=== PATIENT | male | born 1960 | race Caucasian/White ===

== ENCOUNTER → 2020-02-26 09:44 | Outpatient (BNVA) | payer OTHER, SELFPAY | PROVIDERS: PCP Family Medicine; Referring Provider Family Medicine; Visit Provider Orthopaedic Surgery | DX: M22.2X2 Patellofemoral disorders, left knee (principal); M22.2X1 Patellofemoral disorders, right knee | CPT/HCPCS: 20610; 99213; 99214; J1040 ==

== ENCOUNTER 2020-03-16 09:24 | Outpatient (REF) | payer OTHER, SELFPAY | END 2020-03-16 09:25 | disposition home or self-care (01) | LOC: HO.LAB 09:24 | PROVIDERS: Visit Provider Internal Medicine | DX: Z20.828 Contact with and (suspected) exposure to other viral communicable diseases (principal) | CPT/HCPCS: C9803; U0003 ==

== ENCOUNTER 2020-04-01 09:57 | Outpatient (REF) | payer OTHER, SELFPAY | END 2020-04-01 09:58 | disposition home or self-care (01) | LOC: HO.LAB 09:57 | PROVIDERS: Visit Provider Internal Medicine | DX: Z20.828 Contact with and (suspected) exposure to other viral communicable diseases (principal) | CPT/HCPCS: C9803; U0003 ==

== ENCOUNTER 2020-04-04 10:19 | Outpatient (REF) | payer OTHER, SELFPAY ==
--- NOTE | 2020-04-04 10:22 | US_ITS ---
EXAMINATION: US RETROPERITONEAL LIMITED (RENAL ONLY) CLINICAL INFORMATION: Abdominal pain. COMPARISON: CT abdomen and pelvis 02/05/2020. Ultrasound abdomen complete 01/15/2018. TECHNIQUE: Real-time imaging of the kidneys. FINDINGS: RIGHT KIDNEY: 11.4 x 5.2 x 5.1 cm (SAG x AP x TRV). The kidney is normal in size, contour, and echogenicity. Renal cortical thickness is normal. No renal calculi or hydronephrosis. There is an anechoic cyst in the upper pole measuring 2.0 x 1.2 x 1.7 cm. No additional cyst seen. There is mild perinephric stranding with fluid surrounding upper pole. LEFT KIDNEY: 11.6 x 5.6 x 5.1 cm (SAG x AP x TRV). The kidney is normal in size, contour, and echogenicity. Renal cortical thickness is normal. No calculi or focal parenchymal lesions. No hydronephrosis. There is a likely exophytic cyst or fluid collection along the lateral cortex lower pole. US/US renal BI IMPRESSION: Small cyst upper pole right kidney. Mild perinephric stranding with fluid along the upper pole right kidney and an exophytic cyst versus fluid along the lower pole left kidney.
== END 2020-04-04 10:20 | disposition home or self-care (01) ==
LOC: HO.US 10:19
PROVIDERS: PCP Internal Medicine; Visit Provider Internal Medicine
DX: R10.9 Unspecified abdominal pain (principal); Z87.442 Personal history of urinary calculi
CPT/HCPCS: 76775

== ENCOUNTER 2020-04-19 17:20 | Observation (INO) | payer OTHER, SELFPAY ==
--- NOTE | 2020-04-19 18:26 | XR_ITS ---
EXAMINATION: XR CHEST CLINICAL INFORMATION: Chest pain COMPARISON: Prior chest the 2019. TECHNIQUE: Frontal view of the chest was obtained. FINDINGS: No significant abnormality is noted involving the heart, lungs, mediastinum, bony thorax or soft tissues. XR/XR chest 1V IMPRESSION: Unremarkable examination.
--- NOTE | 2020-04-19 18:26 | CT_ITS ---
EXAMINATION: CT HEAD WITHOUT CONTRAST CLINICAL INFORMATION: Dizziness. COMPARISON: CT head 05/17/2019 TECHNIQUE: Contiguous axial imaging was performed from the skull base to vertex without intravenous administration of contrast. Coronal and sagittal reformatted images are performed at the CT scanner This CT examination was performed using dose optimization techniques as appropriate, variously including the following: *Automated exposure control *Adjustment of mA and/or kV according to patient size (this includes techniques or standardized protocols for targeted exams where dose is matched to indication/reason for exam; i.e. extremities or head) *Use of iterative reconstruction technique DLP: 766 mGy-cm FINDINGS: There is no evidence of acute intracranial hemorrhage or territorial infarction. No abnormal mass effect or midline shift is seen. Summers to white matter differentiation is well preserved. No extra-axial fluid collections are identified. There is atrophy with prominence of the ventricles and the sulci and hypodensity of the periventricular white matter due to chronic small vessel ischemic disease. There are vascular calcifications of the internal carotid arteries bilaterally. The osseous structures and soft tissues are normal. The mastoid air cells and visualized portions of the paranasal sinuses are well aerated. CT/CT head/brain wo con IMPRESSION: No acute intracranial pathology.
--- NOTE | 2020-04-19 18:26 | ECG_ITS ---
Test Reason : DIZZINESS Blood Pressure : / mmHG Vent. Rate : 077 BPM Atrial Rate : 077 BPM P-R Int : 232 ms QRS Dur : 092 ms QT Int : 368 ms P-R-T Axes : 040 -42 018 degrees QTc Int : 416 ms Sinus rhythm with 1st degree A-V block Left axis deviation Abnormal ECG When compared with ECG of 05-FEB-2020 12:53, No significant change was found Referred By: Paras Goyal Electronically Signed By:GOOD LOPEZ
[2020-04-19 18:27] VITALS: BP 120/79; PULSE 86; RESP 16; TEMP 37; O2SAT 96; BMI 31.7
--- NOTE | 2020-04-19 18:55 | ED.GENADULT ---
HPI - General Adult General Chief complaint: Dizziness Stated complaint: DIZZYNES,PAIN Time Seen by Provider: 04/19/20 18:14 Source: patient Mode of arrival: ambulatory Limitations: no limitations History of Present Illness HPI narrative: patient presents to ED for multiple complaints. Patient presents to ED for dizziness described as the room spinning and also fatigue. Patient also states generalized body aches, coughing, headache, chills, and bilateral chest pain. Patient states coughing with yellow phlegm. Patient states having all the symptoms for the past 2 days. Patient denies any recent travel outside the country. Patient denies any swelling of legs or calf pain. Patient denies any recent head trauma. Patient also states slight headache. Patient denies any photophobia or neck stiffness. Related Data Home Medications Medication Instructions Recorded Confirmed atorvastatin 1 tab PO DAILY 04/20/20 04/20/20 dicyclomine 1 tab PO TID 04/20/20 04/20/20 diltiazem HCl 60 mg PO DAILY 04/20/20 04/20/20 famotidine 1 tab PO BID 04/20/20 04/20/20 fluoxetine 1 cap PO QAM 04/20/20 04/20/20 gabapentin 1 tab PO TID 04/20/20 04/20/20 omeprazole 1 cap PO DAILY 04/20/20 04/20/20 polyethylene glycol 3350 17 g PO DAILY 04/20/20 04/20/20 sucralfate 10 ml PO QID 04/20/20 04/20/20 trazodone 1 tab PO BEDTIME 04/20/20 04/20/20 Allergies Allergy/AdvReac Type Severity Reaction Status Date / Time phenytoin [From DILANTIN] Allergy Intermediate NAUSEA Verified 04/19/20 21:30 Benadryl Allergy Unknown restless Verified 04/19/20 21:30 leg syndrome, shaky buprenorphine [Belbuca] Allergy Unknown nausea Verified 04/19/20 21:30 tramadol [TRAMADOL] Allergy Unknown UNABLE TO Verified 04/19/20 21:30 SLEEP , AGITATION, restless leg syndrome dylantin Allergy Unknown Unknown Uncoded 04/19/20 21:30 From BENADRYL Allergy Unknown AGITATION Uncoded 01/28/20 15:00 Review of Systems Constitutional: Constitutional: Reports as per HPI, Reports no additional constitutional complaints, Reports body ache(s), Reports chills, Reports fatigue and Reports headache(s) Eyes: Eyes: Reports as per HPI and Reports no additional eye complaints ENT: Reports system reviewed and no additional complaints, except as documented, Reports as per HPI, Reports dizziness and Reports headache(s) Cardiovascular: Cardiovascular: Reports as per HPI, Reports no additional cardiovascular complaints, Reports chest pain, Denies dyspnea on exertion, Denies orthopnea and Denies paroxysmal nocturnal dyspnea Respiratory: Respiratory: Reports as per HPI, Reports no additional respiratory complaints and Denies dyspnea on exertion Gastrointestinal: Gastrointestinal: Reports as per HPI, Reports no additional gastrointestinal complaints, Denies abdominal pain, Denies heartburn, Denies fecal incontinence, Denies diarrhea, Denies loose stools, Denies nausea, Denies vomiting and Denies hematemesis Genitourinary: Genitourinary: Reports no additional male genitourinary complaints, Denies as per HPI, Denies hematospermia, Denies hematuria, Denies dysuria, Denies flank pain, Denies urinary incontinence and Denies urinary urgency Musculoskeletal: Musculoskeletal: Reports no additional musculoskeletal complaints and Reports as per HPI Neurologic: Reports system reviewed and no additional complaints, except as documented, Reports as per HPI, Reports dizziness and Reports headache(s) Psychiatric: Psychiatric: Reports no additional psychiatric complaints and Reports as per HPI Endocrine: Endocrine: Reports fatigue PMFSH Past Medical History Medical History (Updated 04/20/20 @ 01:59 by FABY Stewart) Chronic pain Social History Social History (Updated 02/26/20 @ 10:01 by Marti Reveles CMA) Alcohol intake: never Smoked in Last 30 Days: No Use of substances other than those prescribed or required for medical reasons: No Advance Directives: No Advance Directives Information Provided: Yes Current occupational status: unemployed Current occupation: Right handed Physical Exam Vital Signs: Vital Signs: Last Vital Signs Temp 97.6 F 04/20/20 00:00 Pulse 63 04/20/20 00:00 Resp 18 04/20/20 00:00 BP 115/69 04/20/20 00:00 Pulse Ox 97 04/20/20 00:00 Body Mass Index 31.7 Const: General: cooperative, healthy appearing, comfortable, no acute distress, well developed and alert Orientation/consciousness: patient oriented x3 HENMT: Head: Yes normal to inspection, Yes No palpable skull fracture present, Yes atraumatic, No Serna's sign, No contusion, No hematoma, No laceration, No palpable skull fracture, No raccoon eyes, No scalp tenderness, No Temporal artery tenderness present and No periorbital ecchymosis Eyes: Other: Negative photophobia General: appearance normal, both eyes and all related structures Neck: Neck: Yes normal visual inspection, Yes full ROM, Yes no lymphadenopathy, Yes no meningeal signs, Yes trachea midline, Yes supple and No tender Chest: Other: positive for bilateral chest wall tenderness on palpation Chest palpation & inspection: normal inspection of the chest and normal palpation of entire chest wall Resp: Effort & Inspection: normal respiratory effort and able to speak in complete sentences Auscultation: clear to auscultation bilaterally Cardio: Jugular venous distension: no JVD Heart sounds: S1 normal heart sound present and S2 normal heart sound present GI: Inspection: Yes normal to inspection and No abdominal wall ecchymosis Palpation (GI): Soft to palpation, not firm, nontender, no guarding, not rigid and hepatosplenomegaly present : General: No CVA tenderness and Yes no CVA tenderness Back/Spine/Pelvis: Back: no CVA tenderness, No CVA tenderness and No back tenderness Skin: General skin exam: no rashes or lesions noted Neuro: Other: negative for any facial droop. Negative for pronator drift. Motor strength of all extremities are intact. Bbyjuo-so-lyqy test intact. Rapid hand movement exam is intact. Negative rhomberg General: patient oriented x3, gait normal, no meningeal signs and CN's II-XI intact bilaterally Cranial nerves: Yes CN's II-XII intact bilaterally Extrem: General: Yes normal to inspection and Yes full ROM Psych: Appearance: grossly normal, well kempt and not disheveled Course Course Course Narrative: Symptoms indicate viral syndrome. Due to age patient also have a cardiac evaluation and sent for head CT to make sure there is no bleed or mass or stroke. Presently history physical exam does not indicate stroke. Patient will have basic labs, COVID swab, chest x-ray, head CT, UA analysis, and cardiac labs. Patient also have EKG. Reevaluation(s) Reevaluation #1: Patient labs including troponin and D-dimer were negative. Patient welll score is 0. patient EKG is normal. Patient's chest x-ray negative for pneumonia. Patient head CT negative for stroke or mass. Upon initial evaluation. Able to stand had negative Romberg test. Patient now states he cannot get up to walk due to dizziness described as the room spinning, slight headache, and back pain. Patient given Valium on top of the meclizine and patient still states not able to walk due to dizziness (spinning) and back pain. There were mutlipe attempts at trying to get patient to get up walk but patient states feels like his leg is giving out. Patient had rectal exam done and patient has good anal strength and tone and patient has perineal/saddle sensation. Patient denies any urinary / bowel incontinence. History physical exam does not indicate cord compression. Spoke with hospitalist Dr. Ying davila to evaluate patient for possible admission for MRI of head due to dizziness. She states very unlikely patient having a stroke but patient could be admitted for intractable back painand dizziness and patient be given stronger pain. patient does not have any photophobia or neck rigidity to indicate meningitis. patient to be admitted. Orthostatics negativel Time: 01:54 Medical Decision Making [facility] Narrative Medical decision making narrative: dizziness, chronic back pain Lab Data Result diagrams: 04/19/20 18:52 04/19/20 18:52 Labs: Lab Results 04/19/20 04/19/20 04/19/20 Range/Units 18:52 18:52 18:52 WBC 10.4 (4.8-10.8) X10*3/uL RBC 4.27 L (4.60-5.80) X10*6/uL Hgb 13.7 L (14.0-18.0) g/dl Hct 40.3 L (42-52) % MCV 94.4 (80-98) fL MCH 32.1 (27.0-33.0) pg MCHC 34.0 (31.0-36.0) g/dl RDW 13.0 (11.0-16.0) % Plt Count 231 (160-400) X10*3/uL MPV 10.4 (9.4-12.4) fL Immature Gran % (Auto) 0.4 (0.0-0.4) % Neut % (Auto) 62.4 (45-73) % Lymph % (Auto) 22.6 (20-40) % [place] % (Auto) 12.1 H (2-11) % Eos % (Auto) 2.1 (0-4) % Baso % (Auto) 0.4 (0-2) % Lymph # (Auto) 2.4 (1.2-4.9) X10*3/uL [place] # (Auto) 1.3 H (0.1-1.2) X10*3/uL Eos # (Auto) 0.2 (0.0-0.4) X10*3/uL Baso # (Auto) 0.0 (0.0-0.2) X10*3/uL Abs Immat Gran (auto) 0.04 H (0.00-0.03) X10*3/uL Absolute Neuts (auto) 6.5 (2.0-8.3) X10*3/uL Absolute Nucleated RBC 0.000 (0.0-0.012) X10*3/uL Nucleated RBC % (auto) 0.0 (0.0-0.2) /100WBC PT 11.2 (10.8-13.0) SEC INR 0.9 (0.9-1.1) APTT 32.3 (24.1-38.0) SEC D-Dimer < 200 NG/ML Sodium 139 (135-145) mmol/L Potassium 4.1 (3.3-5.1) mmol/l Chloride 104 (96-108) mmol/L Carbon Dioxide 25 (22-29) mmol/L Anion Gap 14 (12-20) BUN 12 (9-16) mg/dL Creatinine 0.99 (0.5-1.4) mg/dL Estim Creat Clear Calc 78.5 Estimated GFR > 60 Random Glucose 65 (60-115) mg/dL Calcium 8.7 (8.4-10.2) mg/dL Ferritin 46 (20-250) ng/mL Total Bilirubin 0.2 (0.0-1.0) mg/dL Direct Bilirubin < 0.2 (0.0-0.5) mg/dL AST 20 (5-37) U/L ALT 23 (0-40) U/L Alkaline Phosphatase 111 (39-117) U/L Lactate Dehydrogenase 161 (118-273) U/L Troponin I High Sens (<3.5-35.0) ng/L Total Protein 7.3 (6.5-8.0) g/dL Albumin 4.2 (3.5-5.0) g/dL Procalcitonin ng/mL Urine Color Urine Appearance Urine pH (5.0-8.0) Ur Specific [place] (1.005-1.025) Urine Protein (NEG-TRACE) MG/DL Urine Glucose (UA) (NEG) MG/DL Urine Ketones (NEG) MG/DL Urine Blood (NEG) Urine Nitrite (NEG) Ur Leukocyte Esterase (NEG) Coronavirus (PCR) (Negative) SARS-CoV-2 (PCR) Influenza Type A (PCR) (Negative) Influenza Type B (PCR) (Negative) RSV RNA Qual (PCR) (Negative) 04/19/20 04/19/20 04/19/20 Range/Units 18:52 18:52 19:45 WBC (4.8-10.8) X10*3/uL RBC (4.60-5.80) X10*6/uL Hgb (14.0-18.0) g/dl Hct (42-52) % MCV (80-98) fL MCH (27.0-33.0) pg MCHC (31.0-36.0) g/dl RDW (11.0-16.0) % Plt Count (160-400) X10*3/uL MPV (9.4-12.4) fL Immature Gran % (Auto) (0.0-0.4) % Neut % (Auto) (45-73) % Lymph % (Auto) (20-40) % [place] % (Auto) (2-11) % Eos % (Auto) (0-4) % Baso % (Auto) (0-2) % Lymph # (Auto) (1.2-4.9) X10*3/uL [place] # (Auto) (0.1-1.2) X10*3/uL Eos # (Auto) (0.0-0.4) X10*3/uL Baso # (Auto) (0.0-0.2) X10*3/uL Abs Immat Gran (auto) (0.00-0.03) X10*3/uL Absolute Neuts (auto) (2.0-8.3) X10*3/uL Absolute Nucleated RBC (0.0-0.012) X10*3/uL Nucleated RBC % (auto) (0.0-0.2) /100WBC PT (10.8-13.0) SEC INR (0.9-1.1) APTT (24.1-38.0) SEC D-Dimer NG/ML Sodium (135-145) mmol/L Potassium (3.3-5.1) mmol/l Chloride (96-108) mmol/L Carbon Dioxide (22-29) mmol/L Anion Gap (12-20) BUN (9-16) mg/dL Creatinine (0.5-1.4) mg/dL Estim Creat Clear Calc Estimated GFR Random Glucose (60-115) mg/dL Calcium (8.4-10.2) mg/dL Ferritin (20-250) ng/mL Total Bilirubin (0.0-1.0) mg/dL Direct Bilirubin (0.0-0.5) mg/dL AST (5-37) U/L ALT (0-40) U/L Alkaline Phosphatase (39-117) U/L Lactate Dehydrogenase (118-273) U/L Troponin I High Sens < 3.5 (<3.5-35.0) ng/L Total Protein (6.5-8.0) g/dL Albumin (3.5-5.0) g/dL Procalcitonin 0.03 ng/mL Urine Color Urine Appearance Urine pH (5.0-8.0) Ur Specific [place] (1.005-1.025) Urine Protein (NEG-TRACE) MG/DL Urine Glucose (UA) (NEG) MG/DL Urine Ketones (NEG) MG/DL Urine Blood (NEG) Urine Nitrite (NEG) Ur Leukocyte Esterase (NEG) Coronavirus (PCR) NEGATIVE (Negative) SARS-CoV-2 (PCR) Cancelled Influenza Type A (PCR) NEGATIVE (Negative) Influenza Type B (PCR) NEGATIVE (Negative) RSV RNA Qual (PCR) NEGATIVE (Negative) 04/19/20 Range/Units 21:39 WBC (4.8-10.8) X10*3/uL RBC (4.60-5.80) X10*6/uL Hgb (14.0-18.0) g/dl Hct (42-52) % MCV (80-98) fL MCH (27.0-33.0) pg MCHC (31.0-36.0) g/dl RDW (11.0-16.0) % Plt Count (160-400) X10*3/uL MPV (9.4-12.4) fL Immature Gran % (Auto) (0.0-0.4) % Neut % (Auto) (45-73) % Lymph % (Auto) (20-40) % [place] % (Auto) (2-11) % Eos % (Auto) (0-4) % Baso % (Auto) (0-2) % Lymph # (Auto) (1.2-4.9) X10*3/uL [place] # (Auto) (0.1-1.2) X10*3/uL Eos # (Auto) (0.0-0.4) X10*3/uL Baso # (Auto) (0.0-0.2) X10*3/uL Abs Immat Gran (auto) (0.00-0.03) X10*3/uL Absolute Neuts (auto) (2.0-8.3) X10*3/uL Absolute Nucleated RBC (0.0-0.012) X10*3/uL Nucleated RBC % (auto) (0.0-0.2) /100WBC PT (10.8-13.0) SEC INR (0.9-1.1) APTT (24.1-38.0) SEC D-Dimer NG/ML Sodium (135-145) mmol/L Potassium (3.3-5.1) mmol/l Chloride (96-108) mmol/L Carbon Dioxide (22-29) mmol/L Anion Gap (12-20) BUN (9-16) mg/dL Creatinine (0.5-1.4) mg/dL Estim Creat Clear Calc Estimated GFR Random Glucose (60-115) mg/dL Calcium (8.4-10.2) mg/dL Ferritin (20-250) ng/mL Total Bilirubin (0.0-1.0) mg/dL Direct Bilirubin (0.0-0.5) mg/dL AST (5-37) U/L ALT (0-40) U/L Alkaline Phosphatase (39-117) U/L Lactate Dehydrogenase (118-273) U/L Troponin I High Sens (<3.5-35.0) ng/L Total Protein (6.5-8.0) g/dL Albumin (3.5-5.0) g/dL Procalcitonin ng/mL Urine Color YELLOW Urine Appearance CLEAR Urine pH 5.5 (5.0-8.0) Ur Specific [place] 1.015 (1.005-1.025) Urine Protein NEG (NEG-TRACE) MG/DL Urine Glucose (UA) NEG (NEG) MG/DL Urine Ketones NEG (NEG) MG/DL Urine Blood NEG (NEG) Urine Nitrite NEG (NEG) Ur Leukocyte Esterase NEG (NEG) Coronavirus (PCR) (Negative) SARS-CoV-2 (PCR) Influenza Type A (PCR) (Negative) Influenza Type B (PCR) (Negative) RSV RNA Qual (PCR) (Negative) ECG Data Interpretation: sinus rhythm with first-degree AV block. Ventricular rate 77. Pr interval 232. QRS duration 92. QTC 416. Negative STEMI Discharge Plan Discharge Clinical Impression: Dizziness, Intractable back pain Patient Disposition: Admitted As Inpatient
[2020-04-19 19:02] LABS: Basophils Percent Auto 0.4 % (0-2); Eosinophils Absolute Auto 0.2 X10*3/uL (0.0-0.4); Eosinophils Percent Auto 2.1 % (0-4); Hematocrit 40.3 % (42-52); Hemoglobin 13.7 g/dl (14.0-18.0); Imm Gran Abs Auto 0.04 X10*3/uL (0.00-0.03); Imm Gran Pct Auto 0.4 % (0.0-0.4); Lymphocytes Absolute Auto 2.4 X10*3/uL (1.2-4.9); Lymphocytes Percent Auto 22.6 % (20-40); MANUAL DIFF FLAG NO; Mean Corpuscular Hemoglobin 32.1 pg (27.0-33.0); Mean Corpuscular Volume 94.4 fL (80-98); Mean Platelet Volume 10.4 fL (9.4-12.4); Monocytes Absolute Auto 1.3 X10*3/uL (0.1-1.2); Monocytes Percent Auto 12.1 % (2-11); Neutrophils Absolute Auto 6.5 X10*3/uL (2.0-8.3); Neutrophils Percent Auto 62.4 % (45-73); Platelet Count 231 X10*3/uL (160-400); Red Blood Count 4.27 X10*6/uL (4.60-5.80); White Blood Count 10.4 X10*3/uL (4.8-10.8)
[2020-04-19 19:08] LABS: INTERNATIONAL NORM RATIO 0.9 (0.9-1.1); Prothrombin Time 11.2 SEC (10.8-13.0)
[2020-04-19 19:11] LABS: D Dimer < 200 NG/ML; Partial Thromboplastin Time 32.3 SEC (24.1-38.0)
[2020-04-19 19:27] LABS: Alanine Aminotransferase 23 U/L (0-40); Albumin Level 4.2 g/dL (3.5-5.0); Alkaline Phosphatase 111 U/L (39-117); Anion Gap 14 (12-20); Aspartate Amino Transferase 20 U/L (5-37); Bilirubin Direct < 0.2 mg/dL (0.0-0.5); Bilirubin Total 0.2 mg/dL (0.0-1.0); Blood Urea Nitrogen 12 mg/dL (9-16); Calcium 8.7 mg/dL (8.4-10.2); Carbon Dioxide 25 mmol/L (22-29); Chloride 104 mmol/L (96-108); Creatinine Clr Calc Pharmacy 78.5; Estimated Glomerular Filt Rate > 60; Glucose Random 65 mg/dL (60-115); Lactate Dehydrogenase 161 U/L (118-273); Potassium 4.1 mmol/l (3.3-5.1); Sodium 139 mmol/L (135-145); Total Protein 7.3 g/dL (6.5-8.0)
[2020-04-19 19:32] LABS: Troponin-I High Sensitivity < 3.5 ng/L (<3.5-35.0)
[2020-04-19] MEDS: 0.9 % Sodium Chloride 1,000 ML 999 ML IVCONT (19:41)
[2020-04-19] MEDS: Acetaminophen 325 MG TABLET 650 MG PO (19:41)
[2020-04-19] MEDS: Ketorolac Tromethamine 30 MG/ML VIAL IVPUSH (19:42)
[2020-04-19 19:46] LABS: Procalcitonin 0.03 ng/mL
[2020-04-19 19:48] VITALS: BP 112/74; PULSE 74; RESP 18; TEMP 36.5; O2SAT 97
[2020-04-19] MEDS: Meclizine HCl 25 MG TABLET PO (19:48)
[2020-04-19 19:53] VITALS: BP 112/74; PULSE 65; RESP 18; TEMP 36.3; O2SAT 97
--- NOTE | 2020-04-19 19:54 | PC.NURSE ---
complaioning of headache, body aches, fatigue since 2 days ago. ls cta. unlabored resp. awaiting test results. nsr on monitor.
[2020-04-19 19:55] LABS: Ferritin 46 ng/mL (20-250)
[2020-04-19 20:00] VITALS: BP 118/79; PULSE 60; RESP 16; TEMP 37.1; O2SAT 98
[2020-04-19 21:05] LABS: Influenza A PCR NEGATIVE (Negative); Influenza B PCR NEGATIVE (Negative); Resp Syncy Virus RNA Qual PCR NEGATIVE (Negative); SARS COV2 PCR INHOUSE NEGATIVE (Negative)
[2020-04-19 21:24] VITALS: BP 102/71; BP 110/78; PULSE 61; PULSE 68
--- NOTE | 2020-04-19 21:25 | PC.NURSE ---
pt c/o dizziness during orthos. unable to complete standing d/t back pain.
[2020-04-19 21:29] VITALS: BP 110/78; PULSE 62; RESP 16; TEMP 36.6; O2SAT 98
[2020-04-19] MEDS: diazePAM 5 MG TABLET PO (21:37)
[2020-04-19 21:48] LABS: Glucose Urine UA NEG (NEG); Leukocyte Esterase Urine NEG (NEG); Nitrite Urine NEG (NEG); PH 5.5 (5.0-8.0); Specific Gravity - Urine 1.015 (1.005-1.025); Urine Blood NEG (NEG); Urine Ketones NEG (NEG); Urine Protein NEG (NEG-TRACE)
[2020-04-19 21:50] LABS: Appearance Urine CLEAR; Color Urine YELLOW
[2020-04-20] VITALS (10 sets, daily range): BP systolic 94–146; BP diastolic 62–90; PULSE 63–100; RESP 16–95; TEMP 36.3–36.6; O2SAT 94–99
[2020-04-20] MEDS: Morphine Sulfate 2 MG/ML CARTRIDGE IVPUSH (02:13)
[2020-04-20] MEDS: Enoxaparin Sodium 40 MG/0.4 ML SYRINGE SUBCUT (03:35)
[2020-04-20] MEDS: ondansetron HCL 4 MG/2 ML VIAL IVPUSH (03:42)
[2020-04-20] MEDS: Acetaminophen 325 MG TABLET 650 MG PO (03:42)
--- NOTE | 2020-04-20 04:29 | P.HPHOSP_ITS ---
History of Present Illness Date of Service: 04/20/20 Chief Complaint: back pain, headache, dizziness this is a 59 year male with past medical history of chronic pain presents to the hospital with complaints of multiple complaints including headache, back, legs, and generalized body aches. Patient reports that the headache started 2 days ago. Associated with dizziness mostly on standing. He reports that he has the room spinning around him whenever he stands. He has no lacrimation of the eyes, or nose. Headache is frontal, radiating to his left ear, associated with dizziness. he is also complaining of visual auras. No numbness no tingling. He initially denied any weakness but then stated that he has chronic weakness of his left arm and left leg. He also complaining of chest pain that is chronic with no changes. Patient is also complaining of abdominal pain that is also chronic with no changes. Is complaining of severe back pain that is not subsiding with pain medication received in the ED. Patient has no history of injury or trauma . He reports blurry vision left-sided ear pain in arm. He has no fever no chills. He is complaining of exertional Shortness of breath that is been chronic for over a year. The chest pain is also present chronically is midsternal, intermittent, stabbing, reproducible. Abdominal pain is all over the abdomen he is constipated. on arrival to the ED hemodynamically stable with no significant abnormal vitals. Labs unremarkable , troponin negative, all labs are essentially within normal range. head CT negative, chest x-ray negative. Chest CT negative patient will be admitted for intractable pain, and management of migraine headache. Past medical history: Chronic pain Surgical history: Right knee replacement, reports an esophageal surgery, back surgery Family history: Significant for heart attack, and colon cancer Social history: Comes from home, denies tobacco alcohol or illicit drugs Review of Systems Review of Systems: Yes all other systems are reviewed and are negative Constitutional: Constitutional: Reports headache(s) ENT: Reports dizziness and Reports headache(s) Neurologic: Reports system reviewed and no additional complaints, except as documented, Reports as per HPI, Reports dizziness and Reports headache(s) [facility] Medical History Chronic pain Social History (Updated 02/26/20 @ 10:01 by Marti A Borsari, PARTS WASHER) Alcohol intake: never Smoking Status: Never smoker Smoked in Last 30 Days: No Second Hand Smoke Exposure: No Use of substances other than those prescribed or required for medical reasons: No Advance Directives: No Advance Directives Information Provided: Yes Current occupational status: unemployed Current occupation: Right handed Meds Allergies Allergy/AdvReac Type Severity Reaction Status Date / Time phenytoin [From DILANTIN] Allergy Intermediate NAUSEA Verified 04/19/20 21:30 Benadryl Allergy Unknown restless Verified 04/19/20 21:30 leg syndrome, shaky buprenorphine [Belbuca] Allergy Unknown nausea Verified 04/19/20 21:30 tramadol [TRAMADOL] Allergy Unknown UNABLE TO Verified 04/19/20 21:30 SLEEP , AGITATION, restless leg syndrome dylantin Allergy Unknown Unknown Uncoded 04/19/20 21:30 From BENADRYL Allergy Unknown AGITATION Uncoded 01/28/20 15:00 Home Medications Medication Instructions Recorded Confirmed Type atorvastatin 1 tab PO DAILY 04/20/20 04/20/20 History dicyclomine 1 tab PO TID 04/20/20 04/20/20 History diltiazem HCl 60 mg PO DAILY 04/20/20 04/20/20 History famotidine 1 tab PO BID 04/20/20 04/20/20 History fluoxetine 1 cap PO QAM 04/20/20 04/20/20 History gabapentin 1 tab PO TID 04/20/20 04/20/20 History omeprazole 1 cap PO DAILY 04/20/20 04/20/20 History polyethylene glycol 3350 17 g PO DAILY 04/20/20 04/20/20 History sucralfate 10 ml PO QID 04/20/20 04/20/20 History trazodone 1 tab PO BEDTIME 04/20/20 04/20/20 History Physical Exam Vital Signs and Narrative: Vital Signs: Last Vital Signs Temp 97.4 F 04/20/20 04:00 Pulse 67 04/20/20 04:00 Resp 18 04/20/20 04:00 BP 114/79 04/20/20 04:00 Pulse Ox 99 04/20/20 04:00 Body Mass Index 31.7 Const: Other: he appears uncomfortable, rubbing his head, General: cooperative Orientation/consciousness: patient oriented x3 Eyes: General: appearance normal, both eyes and all related structures Pupils: Equal, round and reactive pupils present Resp: Effort & Inspection: normal respiratory effort and able to speak in complete sentences Auscultation: clear to auscultation bilaterally Cardio: Rate: regular rate Rhythm: regular rhythm GI: Palpation (GI): Soft to palpation Auscultation: normal bowel sounds Skin: General skin exam: no rashes or lesions noted Neuro: Other: Strength is 5/5 in all extremities General: patient oriented x3 Cranial nerves: Yes Equal, round and reactive pupils present Cognition (Neuro): normal cognition Extrem: General: Yes normal to inspection and Yes no pedal edema Results Labs CBC and Chem 7: 04/19/20 18:52 04/19/20 18:52 Labs: Laboratory Results - last 24 hr 04/19/20 04/19/20 04/19/20 18:52 18:52 18:52 MCV 94.4 MCH 32.1 MCHC 34.0 RDW 13.0 Plt Count 231 MPV 10.4 Immature Gran % (Auto) 0.4 Neut % (Auto) 62.4 Lymph % (Auto) 22.6 [place] % (Auto) 12.1 H Eos % (Auto) 2.1 Baso % (Auto) 0.4 Lymph # (Auto) 2.4 [place] # (Auto) 1.3 H Eos # (Auto) 0.2 Baso # (Auto) 0.0 Abs Immat Gran (auto) 0.04 H Absolute Neuts (auto) 6.5 Absolute Nucleated RBC 0.000 Nucleated RBC % (auto) 0.0 PT 11.2 INR 0.9 APTT 32.3 D-Dimer < 200 Anion Gap 14 Estim Creat Clear Calc 78.5 Estimated GFR > 60 Random Glucose 65 Calcium 8.7 Ferritin 46 Total Bilirubin 0.2 Direct Bilirubin < 0.2 AST 20 ALT 23 Alkaline Phosphatase 111 Lactate Dehydrogenase 161 Troponin I High Sens Total Protein 7.3 Albumin 4.2 Procalcitonin Urine Color Urine Appearance Urine pH Ur Specific [place] Urine Protein Urine Glucose (UA) Urine Ketones Urine Blood Urine Nitrite Ur Leukocyte Esterase Coronavirus (PCR) SARS-CoV-2 (PCR) Influenza Type A (PCR) Influenza Type B (PCR) RSV RNA Qual (PCR) 04/19/20 04/19/20 04/19/20 18:52 18:52 19:45 MCV MCH MCHC RDW Plt Count MPV Immature Gran % (Auto) Neut % (Auto) Lymph % (Auto) [place] % (Auto) Eos % (Auto) Baso % (Auto) Lymph # (Auto) [place] # (Auto) Eos # (Auto) Baso # (Auto) Abs Immat Gran (auto) Absolute Neuts (auto) Absolute Nucleated RBC Nucleated RBC % (auto) PT INR APTT D-Dimer Anion Gap Estim Creat Clear Calc Estimated GFR Random Glucose Calcium Ferritin Total Bilirubin Direct Bilirubin AST ALT Alkaline Phosphatase Lactate Dehydrogenase Troponin I High Sens < 3.5 Total Protein Albumin Procalcitonin 0.03 Urine Color Urine Appearance Urine pH Ur Specific [place] Urine Protein Urine Glucose (UA) Urine Ketones Urine Blood Urine Nitrite Ur Leukocyte Esterase Coronavirus (PCR) NEGATIVE SARS-CoV-2 (PCR) Cancelled Influenza Type A (PCR) NEGATIVE Influenza Type B (PCR) NEGATIVE RSV RNA Qual (PCR) NEGATIVE 04/19/20 21:39 MCV MCH MCHC RDW Plt Count MPV Immature Gran % (Auto) Neut % (Auto) Lymph % (Auto) [place] % (Auto) Eos % (Auto) Baso % (Auto) Lymph # (Auto) [place] # (Auto) Eos # (Auto) Baso # (Auto) Abs Immat Gran (auto) Absolute Neuts (auto) Absolute Nucleated RBC Nucleated RBC % (auto) PT INR APTT D-Dimer Anion Gap Estim Creat Clear Calc Estimated GFR Random Glucose Calcium Ferritin Total Bilirubin Direct Bilirubin AST ALT Alkaline Phosphatase Lactate Dehydrogenase Troponin I High Sens Total Protein Albumin Procalcitonin Urine Color YELLOW Urine Appearance CLEAR Urine pH 5.5 Ur Specific [place] 1.015 Urine Protein NEG Urine Glucose (UA) NEG Urine Ketones NEG Urine Blood NEG Urine Nitrite NEG Ur Leukocyte Esterase NEG Coronavirus (PCR) SARS-CoV-2 (PCR) Influenza Type A (PCR) Influenza Type B (PCR) RSV RNA Qual (PCR) Imaging Radiologist's Impressions: Impressions Chest X-Ray 04/19/20 18:26 IMPRESSION: Unremarkable examination. Head CT 04/19/20 18:26 IMPRESSION: No acute intracranial pathology. Assessment and Plan (1) Dizziness: Status: Acute (2) Intractable back pain: Status: Acute (3) Migraine headache: Status: Acute this is a 59-year-old male with past medical history of chronic pain who presents to the hospital with vague symptoms including pain all over as well as headache And dizziness # headache - appears to have migraine headaches, associated with visual auras as well as dizziness - Head CT negative, no neurological deficits - will order sumatriptan p.r.n. for migraine headaches # vertigo - most likely secondary to migraine headaches, patient does not have any ear infection, - orthostatic vitals, no neurological deficits plan: - Will treat the headache, consult PT for Hui # intractable back pain/ back pain flare - patient has chronic back pain that is just slightly severe now - patient's pain was managed with Toradol with no relief. - Patient will be given IV pain medications for pain management DVT prophylaxis: Lovenox
[2020-04-20] MEDS: Morphine Sulfate 4 MG/ML CARTRIDGE IVPUSH ×4 (05:49→21:49)
[2020-04-20] MEDS: SUMAtriptan succinate 50 MG TABLET PO ×2 (07:37→09:58)
[2020-04-20] MEDS: 0.9 % Sodium Chloride Flush 3 ML SYRINGE IVFLUSH ×2 (07:39→16:48)
--- NOTE | 2020-04-20 08:36 | MHC.CM.PN ---
CM was attempting to call Patient and reached Daughter/HCP/ISAC instead. Patient lives alone in an apartment and has both a cane and a walker to assist with mobility. Patient receives [address] [employer] hours/week and a monthly RN visit through [facility]. Home is the goal for dc and CM has initiated and will follow for dc planning. MCCLURE addressed with Daughter and original is being mailed to her (Covid Te). PCP is Dr. Jules Willard @ [facility].
[2020-04-20] MEDS: Butalb/Acetamin/Caff 50/325/40 TABLET 1 TAB PO (09:58)
[2020-04-20] MEDS: Sucralfate Oral Suspension 1 GM/10 ML ORAL.SUSP PO ×2 (16:47→21:43)
[2020-04-20] MEDS: Gabapentin 400 MG CAPSULE 800 MG PO ×2 (16:47→21:44)
[2020-04-20] MEDS: FLUoxetine HCl 20 MG CAPSULE 40 MG PO (16:48)
[2020-04-20] MEDS: traZODone HCL 50 MG TABLET 150 MG PO (21:43)
[2020-04-20] MEDS: Dicyclomine HCl 10 MG CAPSULE 20 MG PO (21:44)
[2020-04-20] MEDS: Famotidine 20 MG TABLET PO (21:44)
[2020-04-21] MEDS: Enoxaparin Sodium 40 MG/0.4 ML SYRINGE SUBCUT (03:37)
[2020-04-21] MEDS: 0.9 % Sodium Chloride Flush 3 ML SYRINGE IVFLUSH ×2 (03:38→08:06)
[2020-04-21] MEDS: Acetaminophen 325 MG TABLET 650 MG PO (03:43)
[2020-04-21] MEDS: Morphine Sulfate 4 MG/ML CARTRIDGE IVPUSH ×2 (03:43→08:13)
[2020-04-21 04:00] VITALS: BP 116/77; PULSE 105; RESP 18; TEMP 36.4; O2SAT 95
[2020-04-21] MEDS: Omeprazole 20 MG CAPSULE.DR PO (05:51)
[2020-04-21 07:37] LABS: Glucose, Whole Blood 108 mg/dL (60-115)
[2020-04-21 08:00] VITALS: BP 129/79; PULSE 84; RESP 20; TEMP 36.4; O2SAT 96
[2020-04-21] MEDS: polyethylene glycoL 3350 17 GM POWD.PACK PO (08:06)
[2020-04-21] MEDS: Sucralfate Oral Suspension 1 GM/10 ML ORAL.SUSP PO (08:06)
[2020-04-21] MEDS: FLUoxetine HCl 20 MG CAPSULE 40 MG PO (08:07)
[2020-04-21] MEDS: dilTIAZem HCL 60 MG TABLET PO (08:07)
[2020-04-21] MEDS: Atorvastatin Calcium 20 MG TABLET PO (08:08)
[2020-04-21] MEDS: Famotidine 20 MG TABLET PO (08:08)
[2020-04-21] MEDS: Gabapentin 400 MG CAPSULE 800 MG PO (08:08)
[2020-04-21] MEDS: Dicyclomine HCl 10 MG CAPSULE 20 MG PO (08:08)
[2020-04-21 11:32] LABS: Glucose, Whole Blood 100 mg/dL (60-115)
--- NOTE | 2020-04-21 11:38 | MHC.CM.PN ---
CM contacted pts daughter, Lexi () to discuss pts DC plans. She was informed that STR was recommended for the pt but that he wanted to go home. She was also informed that he appeared to have difficulty ambulating this morning. Lexi reports the pt has an electric wheel chair that he uses when he needs to go any distance and in the home she is there to assist him. CM asked if she felt comfortable with pt discharging home and she reported yes as she has been his pharmaceutical representative for some time. CM met with pt again with the assistance of a manager biologics. pt confirmed he wants to go home at [place]. pt declined the offer of home PT stating the apartment is too small to do any exercising. He reports his daughter typically takes him to appts and he would be agreeable to attending outpatient PT. pt is aware he will DC home today and the only concern expressed was that he be sent with medications for pain. CM conformed that he had already discussed this with the MD. CM called pts daughter back to review final DC plan, she is agreeable. Pt will DC home today with a referral for outpatient physical therapy and resumption of BOOK EDITOR services pts daughter will transport.
[2020-04-21 11:51] VITALS: BP 118/81; PULSE 67; RESP 20; TEMP 36.2; O2SAT 96
--- NOTE | 2020-04-21 11:56 | P.DS_ITS ---
DS: Providers Provider Date of admission: 04/20/20 01:36 Primary care physician: Unknown Physician DS: Diagnosis Discharge Diagnosis (1) Dizziness: Status: Acute (2) Intractable back pain: Status: Acute (3) Migraine headache: Status: Acute DS: Medications Discharge Medications Home Medications: Home Medications Medication Instructions Recorded Confirmed atorvastatin 1 tab PO DAILY 04/20/20 04/20/20 dicyclomine 1 tab PO TID 04/20/20 04/20/20 diltiazem HCl 60 mg PO DAILY 04/20/20 04/20/20 famotidine 1 tab PO BID 04/20/20 04/20/20 fluoxetine 1 cap PO QAM 04/20/20 04/20/20 gabapentin 1 tab PO TID 04/20/20 04/20/20 omeprazole 1 cap PO DAILY 04/20/20 04/20/20 polyethylene glycol 3350 17 g PO DAILY 04/20/20 04/20/20 sucralfate 10 ml PO QID 04/20/20 04/20/20 trazodone 1 tab PO BEDTIME 04/20/20 04/20/20 Previous Rx's Medication Instructions Recorded gpeqztvzma-ereklnbysgplj-djtm 1 tab PO Q6H PRN #30 tab 04/21/20 DS: Summary Hospital Course Hospital Course: History of presenting illness Chief Complaint: back pain, headache, dizziness this is a 59 year male with past medical history of chronic pain presents to the hospital with complaints of multiple complaints including headache, back, legs, and generalized body aches. Patient reports that the headache started 2 days ago. Associated with dizziness mostly on standing. He reports that he has the room spinning around him whenever he stands. He has no lacrimation of the eyes, or nose. Headache is frontal, radiating to his left ear, associated with dizziness. he is also complaining of visual auras. No numbness no tingling. He initially denied any weakness but then stated that he has chronic weakness of his left arm and left leg. He also complaining of chest pain that is chronic with no changes. Patient is also complaining of abdominal pain that is also chronic with no changes. Is complaining of severe back pain that is not subsiding with pain medication received in the ED. Patient has no history of injury or trauma . He reports blurry vision left-sided ear pain in arm. He has no fever no chills. He is complaining of exertional Shortness of breath that is been chronic for over a year. The chest pain is also present chronically is midsternal, intermittent, stabbing, reproducible. Abdominal pain is all over the abdomen he is constipated. on arrival to the ED hemodynamically stable with no significant abnormal vitals. Labs unremarkable , troponin negative, all labs are essentially within normal range. head CT negative, chest x-ray negative. Chest CT negative patient will be admitted for intractable pain, and management of migraine headache. Past medical history: Chronic back pain, headaches Surgical history: Right knee replacement, reports an esophageal surgery, back surgery. Hospital course 59-year-old gentleman with chronic back pain presented to [facility] with weeks symptoms including headache, dizziness back pain, in regard to his headache patient was treated with Fioricet and sumatriptan his headache has now resolved CT head was unremarkable patient has no neurological deficit therefore being discharged with recommendation to follow-up with PCP patient also had dizziness that has resolved. 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 Time Spent with Patient Time attestation: Total time spent providing and/or coordinating discharge services: Physical Exam Vital Signs: Vital Signs: Last Vital Signs Temp 97.2 F 04/21/20 11:51 Pulse 67 04/21/20 11:51 Resp 20 04/21/20 11:51 BP 118/81 04/21/20 11:51 Pulse Ox 96 04/21/20 11:51 Body Mass Index 31.7 General patient resting comfortably in no acute distress. Neck is supple no JVD. CVS regular rate rhythm, Respiratory lungs clear to auscultation, no respiratory distress Gastrointestinal abdomen soft, obese, nontender, bowel sounds audible Extremities no clubbing cyanosis or edema. Neuro patient moving all 4 extremity, good strength both lower extremities, plantar downgoing. Skin no rash DS: Data Data Completed and Pending Labs on day of discharge: Laboratory Last Values WBC 10.4 X10*3/uL (4.8-10.8) 04/19/20 18:52 RBC 4.27 X10*6/uL (4.60-5.80) L 04/19/20 18:52 Hgb 13.7 g/dl (14.0-18.0) L 04/19/20 18:52 Hct 40.3 % (42-52) L 04/19/20 18:52 MCV 94.4 fL (80-98) 04/19/20 18:52 MCH 32.1 pg (27.0-33.0) 04/19/20 18:52 MCHC 34.0 g/dl (31.0-36.0) 04/19/20 18:52 RDW 13.0 % (11.0-16.0) 04/19/20 18:52 Plt Count 231 X10*3/uL (160-400) 04/19/20 18:52 MPV 10.4 fL (9.4-12.4) 04/19/20 18:52 Immature Gran % (Auto) 0.4 % (0.0-0.4) 04/19/20 18:52 Neut % (Auto) 62.4 % (45-73) 04/19/20 18:52 Lymph % (Auto) 22.6 % (20-40) 04/19/20 18:52 [place] % (Auto) 12.1 % (2-11) H 04/19/20 18:52 Eos % (Auto) 2.1 % (0-4) 04/19/20 18:52 Baso % (Auto) 0.4 % (0-2) 04/19/20 18:52 Lymph # (Auto) 2.4 X10*3/uL (1.2-4.9) 04/19/20 18:52 [place] # (Auto) 1.3 X10*3/uL (0.1-1.2) H 04/19/20 18:52 Eos # (Auto) 0.2 X10*3/uL (0.0-0.4) 04/19/20 18:52 Baso # (Auto) 0.0 X10*3/uL (0.0-0.2) 04/19/20 18:52 Abs Immat Gran (auto) 0.04 X10*3/uL (0.00-0.03) H 04/19/20 18:52 Absolute Neuts (auto) 6.5 X10*3/uL (2.0-8.3) 04/19/20 18:52 Absolute Nucleated RBC 0.000 X10*3/uL (0.0-0.012) 04/19/20 18:52 Nucleated RBC % (auto) 0.0 /100WBC (0.0-0.2) 04/19/20 18:52 PT 11.2 SEC (10.8-13.0) 04/19/20 18:52 INR 0.9 (0.9-1.1) 04/19/20 18:52 APTT 32.3 SEC (24.1-38.0) 04/19/20 18:52 D-Dimer < 200 NG/ML 04/19/20 18:52 Sodium 139 mmol/L (135-145) 04/19/20 18:52 Potassium 4.1 mmol/l (3.3-5.1) 04/19/20 18:52 Chloride 104 mmol/L (96-108) 04/19/20 18:52 Carbon Dioxide 25 mmol/L (22-29) 04/19/20 18:52 Anion Gap 14 (12-20) 04/19/20 18:52 BUN 12 mg/dL (9-16) 04/19/20 18:52 Creatinine 0.99 mg/dL (0.5-1.4) 04/19/20 18:52 Estim Creat Clear Calc 78.5 04/19/20 18:52 Estimated GFR > 60 04/19/20 18:52 POC Glucose 100 mg/dL (60-115) 04/21/20 11:20 Random Glucose 65 mg/dL (60-115) 04/19/20 18:52 Calcium 8.7 mg/dL (8.4-10.2) 04/19/20 18:52 Ferritin 46 ng/mL (20-250) 04/19/20 18:52 Total Bilirubin 0.2 mg/dL (0.0-1.0) 04/19/20 18:52 Direct Bilirubin < 0.2 mg/dL (0.0-0.5) 04/19/20 18:52 AST 20 U/L (5-37) 04/19/20 18:52 ALT 23 U/L (0-40) 04/19/20 18:52 Alkaline Phosphatase 111 U/L (39-117) 04/19/20 18:52 Lactate Dehydrogenase 161 U/L (118-273) 04/19/20 18:52 Troponin I High Sens < 3.5 ng/L (<3.5-35.0) 04/19/20 18:52 Total Protein 7.3 g/dL (6.5-8.0) 04/19/20 18:52 Albumin 4.2 g/dL (3.5-5.0) 04/19/20 18:52 Procalcitonin 0.03 ng/mL 04/19/20 18:52 Urine Color YELLOW 04/19/20 21:39 Urine Appearance CLEAR 04/19/20 21:39 Urine pH 5.5 (5.0-8.0) 04/19/20 21:39 Ur Specific [place] 1.015 (1.005-1.025) 04/19/20 21:39 Urine Protein NEG MG/DL (NEG-TRACE) 04/19/20 21:39 Urine Glucose (UA) NEG MG/DL (NEG) 04/19/20 21:39 Urine Ketones NEG MG/DL (NEG) 04/19/20 21:39 Urine Blood NEG (NEG) 04/19/20 21:39 Urine Nitrite NEG (NEG) 04/19/20 21:39 Ur Leukocyte Esterase NEG (NEG) 04/19/20 21:39 Coronavirus (PCR) NEGATIVE (Negative) 04/19/20 19:45 SARS-CoV-2 (PCR) Cancelled 04/19/20 19:45 Influenza Type A (PCR) NEGATIVE (Negative) 04/19/20 19:45 Influenza Type B (PCR) NEGATIVE (Negative) 04/19/20 19:45 RSV RNA Qual (PCR) NEGATIVE (Negative) 04/19/20 19:45 Discharge Plan Discharge Patient Disposition: Home, Self-Care Referrals: Physician,Unknown [Primary Care Provider] - Discharge Medications: New aijftmvsib-wtjlozgqevuzu-tibm 50-325-40 mg Tablet 1 tab PO Q6H PRN (Reason: Headache) Qty: 30 RF: 0 Continued fluoxetine 40 mg capsule 1 cap PO QAM RF: 0 atorvastatin 20 mg tablet 1 tab PO DAILY RF: 0 sucralfate 100 mg/mL suspension 10 ml PO QID RF: 0 famotidine 20 mg tablet 1 tab PO BID RF: 0 gabapentin 800 mg tablet 1 tab PO TID RF: 0 dicyclomine 20 mg tablet 1 tab PO TID RF: 0 trazodone 150 mg tablet 1 tab PO BEDTIME RF: 0 omeprazole 20 mg capsule,delayed release(DR/EC) 1 cap PO DAILY RF: 0 polyethylene glycol 3350 17 gram/dose powder 17 g PO DAILY RF: 0 diltiazem HCl 60 mg tablet 60 mg PO DAILY RF: 0 Discharge Orders: Discharge Order (Routine); Ordered 04/21/20 Ordered By: Jem Singh Diet: low fat, low cholesterol Activity on Discharge: As tolerated Visit Report Forms: Patient Portal Discharge page Care Plan Goals: Outpatient physical therapy, patient declined rehab placement and inpatient PT Health Concerns: Strongly recommend low-calorie diet. Plan of Treatment: Close outpatient follow up with the primary care physician
== END 2020-04-21 14:18 | disposition home or self-care (01) ==
LOC: HO.ED 04-20 01:59 → HO.IMC 04-20 02:17
PROVIDERS: Physician Assistant; Student in an Organized Health Care Education/Training Program; Admitting Provider Internal Medicine; Emergency Provider Emergency Medicine; Visit Provider Hospitalist
DX: R42 Dizziness and giddiness (principal); M54.9 Dorsalgia, unspecified; G43.909 Migraine, unspecified, not intractable, without status migrainosus; I44.0 Atrioventricular block, first degree; H53.8 Other visual disturbances; R07.9 Chest pain, unspecified; R06.02 Shortness of breath; R05 Cough; R94.31 Abnormal electrocardiogram [ECG] [EKG]; Z20.828 Contact with and (suspected) exposure to other viral communicable diseases; Z88.8 Allergy status to other drugs, medicaments and biological substances; Z79.899 Other long term (current) drug therapy
CPT/HCPCS: 0241U; 36415; 70450; 71045; 80053; 80076; 81003; 82248; 82728; 82947; 83615; 84145; 84484; 85025; 85379; 85610; 85730; 93005; 96361; 96372; 96374; 96375; 97163; 99219; 99285; J1650; J1885; J2270; J2405

== ENCOUNTER 2020-06-14 13:12 | Emergency (ER) | payer OTHER, SELFPAY ==
--- NOTE | 2020-06-14 13:18 | ECG_ITS ---
Test Reason : CHEST PAIN DIZZY Blood Pressure : / mmHG Vent. Rate : 091 BPM Atrial Rate : 091 BPM P-R Int : 208 ms QRS Dur : 084 ms QT Int : 354 ms P-R-T Axes : 047 -46 022 degrees QTc Int : 435 ms Normal sinus rhythm Left axis deviation Abnormal ECG When compared with ECG of 19-APR-2020 18:59, No significant change was found Referred By: Generic ED Physician Electronically Signed By:PATT ZAMORANO MD
[2020-06-14 14:29] VITALS: BP 136/82; PULSE 93; RESP 16; TEMP 36.7; O2SAT 96; BMI 31.6
--- NOTE | 2020-06-14 14:33 | ED.CHESTPAIN ---
HPI - Chest Pain General Chief Complaint: Chest Pain Stated Complaint: CHEST PAIN Time Seen by Provider: 06/14/20 14:32 Related Data Home Medications Medication Instructions Recorded Confirmed atorvastatin 1 tab PO DAILY 04/20/20 04/20/20 dicyclomine 1 tab PO TID 04/20/20 04/20/20 diltiazem HCl 60 mg PO DAILY 04/20/20 04/20/20 famotidine 1 tab PO BID 04/20/20 04/20/20 fluoxetine 1 cap PO QAM 04/20/20 04/20/20 gabapentin 1 tab PO TID 04/20/20 04/20/20 omeprazole 1 cap PO DAILY 04/20/20 04/20/20 polyethylene glycol 3350 17 g PO DAILY 04/20/20 04/20/20 sucralfate 10 ml PO QID 04/20/20 04/20/20 trazodone 1 tab PO BEDTIME 04/20/20 04/20/20 Previous Rx's Medication Instructions Recorded uoayxazchm-yzidqelppdidr-oqzo 1 tab PO Q6H PRN #30 tab 04/21/20 Allergies Allergy/AdvReac Type Severity Reaction Status Date / Time phenytoin [From DILANTIN] Allergy Intermediate NAUSEA Verified 04/19/20 21:30 Benadryl Allergy Unknown restless Verified 04/19/20 21:30 leg syndrome, shaky buprenorphine [Belbuca] Allergy Unknown nausea Verified 04/19/20 21:30 tramadol [TRAMADOL] Allergy Unknown UNABLE TO Verified 04/19/20 21:30 SLEEP , AGITATION, restless leg syndrome dylantin Allergy Unknown Unknown Uncoded 04/19/20 21:30 From BENADRYL Allergy Unknown AGITATION Uncoded 01/28/20 15:00 [facility] Past Medical History Medical History Chronic pain Social History Social History (Updated 02/26/20 @ 10:01 by Marti Reveles CMA) Alcohol intake: never Smoking Status: Never smoker Second Hand Smoke Exposure: No service: No Current occupational status: unemployed and disabled Current occupation: Right handed Course Reevaluation(s) Reevaluation #1: 59 yold male presents to the ED for cough, chest pain, shortness of breath, and chills. patient will have rapid medical screening. History, physical exam, and decision making will be done by ED provider. Time: 14:35 Discharge Plan Discharge Prescriptions: No Action fluoxetine 40 mg capsule 1 cap PO QAM RF: 0 atorvastatin 20 mg tablet 1 tab PO DAILY RF: 0 sucralfate 100 mg/mL suspension 10 ml PO QID RF: 0 famotidine 20 mg tablet 1 tab PO BID RF: 0 gabapentin 800 mg tablet 1 tab PO TID RF: 0 dicyclomine 20 mg tablet 1 tab PO TID RF: 0 trazodone 150 mg tablet 1 tab PO BEDTIME RF: 0 omeprazole 20 mg capsule,delayed release(DR/EC) 1 cap PO DAILY RF: 0 polyethylene glycol 3350 17 gram/dose powder 17 g PO DAILY RF: 0 diltiazem HCl 60 mg tablet 60 mg PO DAILY RF: 0 rioxhmhhkg-wjnavbwqjoizk-jroi 50-325-40 mg Tablet 1 tab PO Q6H PRN (Reason: Headache) Qty: 30 RF: 0
--- NOTE | 2020-06-14 14:35 | XR_ITS ---
EXAMINATION: XR CHEST CLINICAL INFORMATION: Cough. Evaluate for pneumonia. COMPARISON: Previous chest x-ray most recent April 2020 TECHNIQUE: Frontal view of the chest was obtained. FINDINGS: No significant abnormality is noted involving the heart, lungs, mediastinum, bony thorax or soft tissues. XR/XR chest 1V IMPRESSION: Unremarkable examination.
[2020-06-14 15:00] LABS: MANUAL DIFF FLAG NO
[2020-06-14 15:02] LABS: Basophils Absolute Auto 0.1 X10*3/uL (0.0-0.2); Basophils Percent Auto 0.7 % (0-2); Eosinophils Absolute Auto 0.1 X10*3/uL (0.0-0.4); Eosinophils Percent Auto 1.3 % (0-4); Hematocrit 41.1 % (42-52); Hemoglobin 14.1 g/dl (14.0-18.0); Imm Gran Abs Auto 0.05 X10*3/uL (0.00-0.03); Imm Gran Pct Auto 0.6 % (0.0-0.4); Lymphocytes Absolute Auto 2.3 X10*3/uL (1.2-4.9); Mean Corpuscular HGB Conc 34.3 g/dl (31.0-36.0); Mean Corpuscular Hemoglobin 31.6 pg (27.0-33.0); Mean Corpuscular Volume 92.2 fL (80-98); Mean Platelet Volume 10.2 fL (9.4-12.4); Monocytes Absolute Auto 0.7 X10*3/uL (0.1-1.2); Monocytes Percent Auto 8.9 % (2-11); Neutrophils Percent Auto 60.5 % (45-73); Platelet Count 325 X10*3/uL (160-400); Red Blood Count 4.46 X10*6/uL (4.60-5.80); Red Cell Distribution Width 12.7 % (11.0-16.0); White Blood Count 8.2 X10*3/uL (4.8-10.8)
[2020-06-14 15:15] LABS: Prothrombin Time 11.3 SEC (10.8-13.0)
[2020-06-14 15:28] LABS: Alanine Aminotransferase 24 U/L (0-40); Albumin Level 4.2 g/dL (3.5-5.0); Alkaline Phosphatase 113 U/L (39-117); Anion Gap 14 (12-20); Aspartate Amino Transferase 21 U/L (5-37); Bilirubin Total 0.2 mg/dL (0.0-1.0); Blood Urea Nitrogen 15 mg/dL (9-16); Calcium 8.8 mg/dL (8.4-10.2); Carbon Dioxide 25 mmol/L (22-29); Chloride 104 mmol/L (96-108); Creatinine Clr Calc Pharmacy 81.1; Estimated Glomerular Filt Rate > 60; Glucose Random 91 mg/dL (60-115); Lactate Dehydrogenase 155 U/L (118-273); Sodium 139 mmol/L (135-145); Total Protein 7.6 g/dL (6.5-8.0)
[2020-06-14 15:33] LABS: B Type Natriuretic Peptide < 10 pg/mL (<100); Troponin-I High Sensitivity < 3.5 ng/L (<3.5-35.0)
[2020-06-14 15:45] LABS: Influenza A PCR NEGATIVE (Negative); Influenza B PCR NEGATIVE (Negative); Resp Syncy Virus RNA Qual PCR NEGATIVE (Negative); SARS COV2 PCR INHOUSE NEGATIVE (Negative)
[2020-06-14 15:47] LABS: Procalcitonin 0.02 ng/mL
[2020-06-14 15:48] LABS: Ferritin 41 ng/mL (20-250)
== END 2020-06-14 17:15 | disposition left against medical advice (07) ==
PROVIDERS: Physician Assistant; Emergency Provider Emergency Medicine
DX: R07.9 Chest pain, unspecified (principal); R06.02 Shortness of breath; Z20.822 Contact with and (suspected) exposure to COVID-19
CPT/HCPCS: 0241U; 36415; 71045; 80053; 82728; 83615; 83880; 84145; 84484; 85025; 85610; 93005; 99283

== ENCOUNTER 2021-03-11 17:01 | Emergency (ER) | payer OTHER, SELFPAY ==
--- NOTE | 2021-03-11 17:08 | ECG_ITS ---
Test Reason : CHEST PAIN Blood Pressure : / mmHG Vent. Rate : 092 BPM Atrial Rate : 092 BPM P-R Int : 212 ms QRS Dur : 090 ms QT Int : 336 ms P-R-T Axes : 048 -53 027 degrees QTc Int : 415 ms Sinus rhythm with 1st degree A-V block Left anterior fascicular block Abnormal ECG No significant changes seen Referred By: Generic ED Physician Electronically Signed By:TIFFANY ARRIAGA MD
[2021-03-11 17:16] VITALS: BP 131/79; BP 144/89; PULSE 90; PULSE 94; RESP 14; O2SAT 97; BMI 32.0
--- NOTE | 2021-03-11 17:16 | ED.CHESTPAIN ---
HPI - Chest Pain General Chief Complaint: Chest Pain Stated Complaint: left ear pain Time Seen by Provider: 03/11/21 17:11 Source: patient Mode of arrival: EMS Limitations: no limitations History of Present Illness HPI narrative: Patient has chronic pain syndrome chronic back problems was in [place] for GI evaluation yesterday now complaining of pain for last 3 days in the chest left side right side going to the leg and left arm pain is constant all over no shortness of breath no diaphoresis. Patient does not have any known coronary disease Related Data Home Medications Medication Instructions Recorded Confirmed atorvastatin 20 mg tablet 1 tab PO DAILY 04/20/20 04/20/20 dicyclomine 20 mg tablet 1 tab PO TID 04/20/20 04/20/20 diltiazem HCl 60 mg tablet 60 mg PO DAILY 04/20/20 04/20/20 famotidine 20 mg tablet 1 tab PO BID 04/20/20 04/20/20 fluoxetine 40 mg capsule 1 cap PO QAM 04/20/20 04/20/20 gabapentin 800 mg tablet 1 tab PO TID 04/20/20 04/20/20 omeprazole 20 mg capsule,delayed 1 cap PO DAILY 04/20/20 04/20/20 release polyethylene glycol 3350 17 17 g PO DAILY 04/20/20 04/20/20 gram/dose oral powder sucralfate 100 mg/mL oral 10 ml PO QID 04/20/20 04/20/20 suspension trazodone 150 mg tablet 1 tab PO BEDTIME 04/20/20 04/20/20 Previous Rx's Medication Instructions Recorded fjtlcmizjn-xscrjuwrlxoqs-lvrdnhfb 1 tab PO Q6H PRN #30 tab 04/21/20 50 mg-325 mg-40 mg tablet oxycodone 5 mg tablet 5 mg PO Q6H PRN #14 tab 03/11/21 Allergies Allergy/AdvReac Type Severity Reaction Status Date / Time phenytoin [From DILANTIN] Allergy Intermediate NAUSEA Verified 04/19/20 21:30 Benadryl Allergy Unknown restless Verified 04/19/20 21:30 leg syndrome, shaky buprenorphine [Belbuca] Allergy Unknown nausea Verified 04/19/20 21:30 tramadol [TRAMADOL] Allergy Unknown UNABLE TO Verified 04/19/20 21:30 SLEEP , AGITATION, restless leg syndrome dylantin Allergy Unknown Unknown Uncoded 04/19/20 21:30 From BENADRYL Allergy Unknown AGITATION Uncoded 01/28/20 15:00 Review of Systems Review of Systems: Yes all other systems are reviewed and are negative [facility] Past Medical History Medical History Chronic pain Social History Social History Alcohol intake: never Patient Tobacco Use Status: Never used Tobacco Second Hand Smoke Exposure: No Use of substances other than those prescribed or required for medical reasons: No Advance Directives: No Advance Directives Information Provided: No service: No Current occupational status: unemployed and disabled Current occupation: Right handed Physical Exam Vital Signs: Vital Signs: Last Vital Signs Temp 98.4 F 03/11/21 17:28 Pulse 88 03/11/21 17:28 Resp 14 03/11/21 17:28 BP 144/89 H 03/11/21 17:28 Pulse Ox 97 03/11/21 17:28 Body Mass Index 32.0 Appearance: Alert. Oriented X3. No acute distress. Anxious Eyes: No pallor icterus ENT: Pharynx normal. Oral Mucosa moist Neck: Normal inspection. Neck supple. CVS: Normal heart rate and rhythm. Pulses normal. Respiratory: No respiratory distress. Equal air entry bilateral, no wheezing/rales/rhonchi Abdomen: Soft and nontender. Bowel sounds are present, no mass palpable, no CVA tenderness Skin: Skin warm and dry. Normal skin color. Normal skin turgor. Extremities: No lower extremity edema. No calf tenderness Neuro: Oriented X 3. MDM - Chest Pain MDM Narrative Medical decision making narrative: Very atypical chest pain for more than 72 hours if workup is negative for any acute cardiac ischemic event discharge patient home for chronic pain patient asking for oxycodone will give him few advised to follow with [facility] Lab Data Attestation: I reviewed the patient's lab results. Result diagrams: 03/11/21 17:57 03/11/21 17:57 Labs: Lab Results 03/11/21 03/11/21 03/11/21 Range/Units 17:57 17:57 17:57 WBC 8.0 (4.8-10.8) X10*3/uL RBC 4.29 L (4.60-5.80) X10*6/uL Hgb 13.8 L (14.0-18.0) g/dl Hct 40.1 L (42.0-52.0) % MCV 93.5 (80.0-98.0) fL MCH 32.2 (27.0-33.0) pg MCHC 34.4 (31.0-36.0) g/dl RDW 13.5 (11.0-16.0) % Plt Count 256 (160-400) X10*3/uL MPV 10.2 (9.4-12.4) fL Immature Gran % (Auto) 0.2 (0.0-0.4) % Neut % (Auto) 56.4 (45-73) % Lymph % (Auto) 30.2 (20-40) % Morrow % (Auto) 10.8 (2-11) % Eos % (Auto) 1.9 (0-4) % Baso % (Auto) 0.5 (0-2) % Lymph # (Auto) 2.4 (1.2-4.9) X10*3/uL Morrow # (Auto) 0.9 (0.1-1.2) X10*3/uL Eos # (Auto) 0.2 (0.0-0.4) X10*3/uL Baso # (Auto) 0.0 (0.0-0.2) X10*3/uL Abs Immat Gran (auto) 0.02 (0.00-0.03) X10*3/uL Absolute Neuts (auto) 4.52 (2.0-8.3) x10*3/uL Absolute Nucleated RBC 0.000 (0.0-0.012) X10*3/uL Nucleated RBC % (auto) 0.0 (0.0-0.2) /100WBC Sodium 139 (135-145) mmol/L Potassium 4.0 (3.3-5.1) mmol/L Chloride 104 (96-108) mmol/L Carbon Dioxide 26 (22-29) mmol/L Anion Gap 13 (12-20) BUN 13 (9-16) mg/dL Creatinine 1.18 (0.5-1.4) mg/dL Estim Creat Clear Calc 65.3 Estimated GFR > 60 Random Glucose 105 (60-115) mg/dL Calcium 9.3 (8.4-10.2) mg/dL Total Bilirubin 0.2 (0.0-1.0) mg/dL Direct Bilirubin < 0.2 (0.0-0.5) mg/dL AST 27 (5-37) U/L ALT 35 (0-40) U/L Alkaline Phosphatase 92 (39-117) U/L Troponin I High Sens < 3.5 (<3.5-35.0) ng/L Total Protein 7.1 (6.5-8.0) g/dL Albumin 4.3 (3.5-5.0) g/dL ECG Data ECG #1: Attestation: I personally reviewed and interpreted this ECG as follows: Interpretation: Normal sinus rhythm normal intervals heart rate 92 beats per minute left axis deviation no acute ST T wave changes no acute ischemia Discharge Plan Discharge Clinical Impression: Atypical chest pain Patient Disposition: Home, Self-Care Instructions: Chest Pain (ED) Additional Instructions: Follow with PCP your chest pain is likely musculoskeletal pain Take oxycodone for severe pain Prescriptions: New oxycodone 5 mg tablet 5 mg PO Q6H PRN (Reason: Pain (Scale Score 7-10)) Qty: 14 RF: 0 No Action fluoxetine 40 mg capsule 1 cap PO QAM RF: 0 atorvastatin 20 mg tablet 1 tab PO DAILY RF: 0 sucralfate 100 mg/mL suspension 10 ml PO QID RF: 0 famotidine 20 mg tablet 1 tab PO BID RF: 0 gabapentin 800 mg tablet 1 tab PO TID RF: 0 dicyclomine 20 mg tablet 1 tab PO TID RF: 0 trazodone 150 mg tablet 1 tab PO BEDTIME RF: 0 omeprazole 20 mg capsule,delayed release(DR/EC) 1 cap PO DAILY RF: 0 polyethylene glycol 3350 17 gram/dose powder 17 g PO DAILY RF: 0 diltiazem HCl 60 mg tablet 60 mg PO DAILY RF: 0 accsvrsfud-hiyydqzvzkvva-gvbw 50-325-40 mg Tablet 1 tab PO Q6H PRN (Reason: Headache) Qty: 30 RF: 0
[2021-03-11 17:28] VITALS: BP 144/89; PULSE 88; RESP 14; TEMP 36.9; O2SAT 97
[2021-03-11 18:01] LABS: MANUAL DIFF FLAG NO
[2021-03-11 18:03] LABS: Basophils Percent Auto 0.5 % (0-2); Eosinophils Absolute Auto 0.2 X10*3/uL (0.0-0.4); Eosinophils Percent Auto 1.9 % (0-4); Hematocrit 40.1 % (42.0-52.0); Hemoglobin 13.8 g/dl (14.0-18.0); Imm Gran Abs Auto 0.02 X10*3/uL (0.00-0.03); Imm Gran Pct Auto 0.2 % (0.0-0.4); Lymphocytes Absolute Auto 2.4 X10*3/uL (1.2-4.9); Lymphocytes Percent Auto 30.2 % (20-40); Mean Corpuscular HGB Conc 34.4 g/dl (31.0-36.0); Mean Corpuscular Hemoglobin 32.2 pg (27.0-33.0); Mean Corpuscular Volume 93.5 fL (80.0-98.0); Mean Platelet Volume 10.2 fL (9.4-12.4); Monocytes Absolute Auto 0.9 X10*3/uL (0.1-1.2); Monocytes Percent Auto 10.8 % (2-11); Neutrophils Absolute Auto 4.52 x10*3/uL (2.0-8.3); Neutrophils Percent Auto 56.4 % (45-73); Platelet Count 256 X10*3/uL (160-400); Red Blood Count 4.29 X10*6/uL (4.60-5.80); Red Cell Distribution Width 13.5 % (11.0-16.0)
[2021-03-11 18:25] LABS: Alanine Aminotransferase 35 U/L (0-40); Albumin Level 4.3 g/dL (3.5-5.0); Alkaline Phosphatase 92 U/L (39-117); Anion Gap 13 (12-20); Aspartate Amino Transferase 27 U/L (5-37); Bilirubin Direct < 0.2 mg/dL (0.0-0.5); Bilirubin Total 0.2 mg/dL (0.0-1.0); Blood Urea Nitrogen 13 mg/dL (9-16); Calcium 9.3 mg/dL (8.4-10.2); Carbon Dioxide 26 mmol/L (22-29); Chloride 104 mmol/L (96-108); Creatinine Clr Calc Pharmacy 65.3; Estimated Glomerular Filt Rate > 60; Glucose Random 105 mg/dL (60-115); Sodium 139 mmol/L (135-145); Total Protein 7.1 g/dL (6.5-8.0)
[2021-03-11 18:29] LABS: Troponin-I High Sensitivity < 3.5 ng/L (<3.5-35.0)
[2021-03-11] MEDS: oxyCODONE HCl Immed Release 5 MG TABLET 10 MG PO (19:37)
== END 2021-03-11 19:49 | disposition home or self-care (01) ==
PROVIDERS: Emergency Provider Internal Medicine
DX: R07.9 Chest pain, unspecified (principal); H92.02 Otalgia, left ear; M54.50 Low back pain, unspecified; Z79.899 Other long term (current) drug therapy
CPT/HCPCS: 36415; 80048; 80076; 84484; 85025; 93005; 99283; 99284

== ENCOUNTER 2021-08-31 12:30 | Emergency (ER) | payer OTHER, SELFPAY ==
--- NOTE | ~2021-08-31 | XR_ITS ---
EXAMINATION: XR CHEST CLINICAL INFORMATION: Chest pain COMPARISON: June 14, 2020 TECHNIQUE: 2 views of the chest were obtained. FINDINGS: No significant abnormality is noted involving the heart, lungs, mediastinum, bony thorax or soft tissues. XR/XR chest 2V IMPRESSION: No acute disease.
[2021-08-31 12:37] VITALS: BP 114/89; BP 132/67; PULSE 87; PULSE 94; RESP 20; TEMP 37.1; O2SAT 100; O2SAT 99
--- NOTE | 2021-08-31 12:57 | ECG_ITS ---
Test Reason : Chest pain Blood Pressure : / mmHG Vent. Rate : 087 BPM Atrial Rate : 087 BPM P-R Int : 206 ms QRS Dur : 090 ms QT Int : 356 ms P-R-T Axes : 044 -59 016 degrees QTc Int : 428 ms Normal sinus rhythm Left axis deviation Low voltage QRS Possible Anterolateral infarct , age undetermined Abnormal ECG When compared with ECG of 11-MAR-2021 17:19, Borderline criteria for Anterior infarct are now Present Borderline criteria for Anterolateral infarct are now Present Referred By: Harjeet Potts Electronically Signed By:PATT ZAMORANO MD
[2021-08-31] MEDS: Famotidine/PF 20 MG/2 ML VIAL IVPUSH (13:07)
[2021-08-31] MEDS: Sucralfate Oral Suspension 1 GM/10 ML ORAL.SUSP PO (13:07)
[2021-08-31] MEDS: Magnesium Hydrox/Alum Hydrox 30 ML ORAL.SUSP PO (13:07)
[2021-08-31] MEDS: 0.9 % Sodium Chloride 1,000 ML 999 ML IV (13:08)
[2021-08-31] MEDS: Aspirin 81 MG TAB.CHEW 324 MG PO (13:10)
[2021-08-31 13:53] LABS: MANUAL DIFF FLAG NO
[2021-08-31 14:06] LABS: Basophils Absolute Auto 0.1 X10*3/uL (0.0-0.2); Basophils Percent Auto 0.9 % (0-2); Eosinophils Absolute Auto 0.1 X10*3/uL (0.0-0.4); Eosinophils Percent Auto 1.6 % (0-4); Hematocrit 42.9 % (42.0-52.0); Hemoglobin 14.7 g/dl (14.0-18.0); Imm Gran Abs Auto 0.03 X10*3/uL (0.00-0.03); Imm Gran Pct Auto 0.4 % (0.0-0.4); Lymphocytes Absolute Auto 2.2 X10*3/uL (1.2-4.9); Lymphocytes Percent Auto 28.1 % (20-40); Mean Corpuscular HGB Conc 34.3 g/dl (31.0-36.0); Mean Corpuscular Hemoglobin 32.5 pg (27.0-33.0); Mean Corpuscular Volume 94.9 fL (80.0-98.0); Mean Platelet Volume 10.8 fL (9.4-12.4); Monocytes Absolute Auto 0.8 X10*3/uL (0.1-1.2); Monocytes Percent Auto 9.8 % (2-11); Neutrophils Absolute Auto 4.7 x10*3/uL (2.0-8.3); Neutrophils Percent Auto 59.2 % (45-73); Platelet Count 255 X10*3/uL (160-400); Red Blood Count 4.52 X10*6/uL (4.60-5.80); Red Cell Distribution Width 12.5 % (11.0-16.0); White Blood Count 7.9 X10*3/uL (4.8-10.8)
[2021-08-31 14:18] LABS: Alanine Aminotransferase 44 U/L (0-40); Albumin Level 4.2 g/dL (3.5-5.0); Alkaline Phosphatase 90 U/L (39-117); Anion Gap 13 (12-20); Aspartate Amino Transferase 36 U/L (5-37); Bilirubin Direct 0.2 mg/dL (0.0-0.5); Bilirubin Total 0.5 mg/dL (0.0-1.0); Blood Urea Nitrogen 14 mg/dL (9-16); Calcium 9.7 mg/dL (8.4-10.2); Carbon Dioxide 28 mmol/L (22-29); Chloride 103 mmol/L (96-108); Creatinine Clr Calc Pharmacy 69.6; Estimated Glomerular Filt Rate > 60; Glucose Random 98 mg/dL (60-115); Lipase 20 U/L (8-78); Potassium 4.5 mmol/L (3.3-5.1); Sodium 139 mmol/L (135-145); Total Protein 7.2 g/dL (6.5-8.0)
[2021-08-31 14:26] LABS: Troponin-I High Sensitivity < 3.5 ng/L (<3.5-35.0)
--- NOTE | 2021-08-31 14:27 | ED.CHESTPAIN ---
HPI - Chest Pain General Chief Complaint: Chest Pain Stated Complaint: CHEST PAIN FROM MD OFFICE Time Seen by Provider: 08/31/21 12:46 Related Data Home Medications Medication Instructions Recorded Confirmed atorvastatin 20 mg tablet 1 tab PO DAILY 04/20/20 04/20/20 dicyclomine 20 mg tablet 1 tab PO TID 04/20/20 04/20/20 diltiazem HCl 60 mg tablet 60 mg PO DAILY 04/20/20 04/20/20 famotidine 20 mg tablet 1 tab PO BID 04/20/20 04/20/20 fluoxetine 40 mg capsule 1 cap PO QAM 04/20/20 04/20/20 gabapentin 800 mg tablet 1 tab PO TID 04/20/20 04/20/20 omeprazole 20 mg capsule,delayed 1 cap PO DAILY 04/20/20 04/20/20 release polyethylene glycol 3350 17 17 g PO DAILY 04/20/20 04/20/20 gram/dose oral powder sucralfate 100 mg/mL oral 10 ml PO QID 04/20/20 04/20/20 suspension trazodone 150 mg tablet 1 tab PO BEDTIME 04/20/20 04/20/20 Previous Rx's Medication Instructions Recorded expsxkysdx-rljqqpyxrpcqe-hlqxoizr 1 tab PO Q6H PRN #30 tab 04/21/20 50 mg-325 mg-40 mg tablet oxycodone 5 mg tablet 5 mg PO Q6H PRN #14 tab 03/11/21 Allergies Allergy/AdvReac Type Severity Reaction Status Date / Time phenytoin [From DILANTIN] Allergy Intermediate NAUSEA Verified 04/19/20 21:30 Benadryl Allergy Unknown restless Verified 04/19/20 21:30 leg syndrome, shaky buprenorphine [Belbuca] Allergy Unknown nausea Verified 04/19/20 21:30 tramadol [TRAMADOL] Allergy Unknown UNABLE TO Verified 04/19/20 21:30 SLEEP , AGITATION, restless leg syndrome dylantin Allergy Unknown Unknown Uncoded 04/19/20 21:30 From BENADRYL Allergy Unknown AGITATION Uncoded 01/28/20 15:00 [facility] Past Medical History Medical History Chronic pain Social History Social History Alcohol intake: never Patient Tobacco Use Status: Never used Tobacco Second Hand Smoke Exposure: No Advance Directives: No Advance Directives Information Provided: No service: No Current occupational status: unemployed and disabled Current occupation: Right handed Physical Exam Vital Signs: Vital Signs: Last Vital Signs Temp 98.7 F 08/31/21 12:37 Pulse 94 08/31/21 12:37 Resp 20 08/31/21 12:37 BP 114/89 08/31/21 12:37 Pulse Ox 99 08/31/21 12:37 BMI result Body Mass Index 30.0 MDM - Chest Pain MDM Narrative Medical decision making narrative: Patient is here with chest pain and is low risk is very low heart score his symptoms were going for the past 10 days he has had multiple workups in the past for similar sounds like acid reflux he states it is worse with food and it is in his epigastric area I will give the patient a GI cocktail Pepcid and get a cardiac workup. 1429 x-ray and labs are negative I will discharge the patient home with PCP follow-up. Medical Records Data Attestation: I reviewed the patient's medical records. Lab Data Attestation: I reviewed the patient's lab results. Result diagrams: 08/31/21 13:37 08/31/21 13:37 Labs: Lab Results 08/31/21 08/31/21 08/31/21 Range/Units 13:37 13:37 13:37 WBC 7.9 (4.8-10.8) X10*3/uL RBC 4.52 L (4.60-5.80) X10*6/uL Hgb 14.7 (14.0-18.0) g/dl Hct 42.9 (42.0-52.0) % MCV 94.9 (80.0-98.0) fL MCH 32.5 (27.0-33.0) pg MCHC 34.3 (31.0-36.0) g/dl RDW 12.5 (11.0-16.0) % Plt Count 255 (160-400) X10*3/uL MPV 10.8 (9.4-12.4) fL Immature Gran % (Auto) 0.4 (0.0-0.4) % Neut % (Auto) 59.2 (45-73) % Lymph % (Auto) 28.1 (20-40) % Colbert % (Auto) 9.8 (2-11) % Eos % (Auto) 1.6 (0-4) % Baso % (Auto) 0.9 (0-2) % Lymph # (Auto) 2.2 (1.2-4.9) X10*3/uL [place]bert # (Auto) 0.8 (0.1-1.2) X10*3/uL Eos # (Auto) 0.1 (0.0-0.4) X10*3/uL Baso # (Auto) 0.1 (0.0-0.2) X10*3/uL Abs Immat Gran (auto) 0.03 (0.00-0.03) X10*3/uL Absolute Neuts (auto) 4.7 (2.0-8.3) x10*3/uL Absolute Nucleated RBC 0.000 (0.0-0.012) X10*3/uL Nucleated RBC % (auto) 0.0 (0.0-0.2) /100WBC Sodium 139 (135-145) mmol/L Potassium 4.5 (3.3-5.1) mmol/L Chloride 103 (96-108) mmol/L Carbon Dioxide 28 (22-29) mmol/L Anion Gap 13 (12-20) BUN 14 (9-16) mg/dL Creatinine 1.06 (0.5-1.4) mg/dL Estim Creat Clear Calc 69.6 Estimated GFR > 60 Random Glucose 98 (60-115) mg/dL Calcium 9.7 (8.4-10.2) mg/dL Total Bilirubin 0.5 (0.0-1.0) mg/dL Direct Bilirubin 0.2 (0.0-0.5) mg/dL AST 36 (5-37) U/L ALT 44 H (0-40) U/L Alkaline Phosphatase 90 (39-117) U/L Troponin I High Sens < 3.5 (<3.5-35.0) ng/L Total Protein 7.2 (6.5-8.0) g/dL Albumin 4.2 (3.5-5.0) g/dL Lipase 20 (8-78) U/L ECG Data ECG #1: Attestation: I personally reviewed and interpreted this ECG as follows: Interpretation: RAte 87 nsr normal intervals no signs of ischemia Scores Heart Score History: -0- slightly suspicious ECG: -0- normal Age: -1- >45 - <65 Risk factory: -1- 1 or 2 risk factors Troponin: -0- < or = normal limit Score: 2 Risk: 1.7% Discharge Plan Discharge Clinical Impression: Chest pain Patient Disposition: Home, Self-Care Instructions: Chest Pain (DC) Additional Instructions: Your x-ray and labs were all normal please call for the doctor yet tried [id number] Maalox as needed for her pain if you have any other concerns please do not hesitate to come back to emergency department. Prescriptions: No Action fluoxetine 40 mg capsule 1 cap PO QAM 0RF atorvastatin 20 mg tablet 1 tab PO DAILY 0RF sucralfate 100 mg/mL suspension 10 ml PO QID 0RF famotidine 20 mg tablet 1 tab PO BID 0RF gabapentin 800 mg tablet 1 tab PO TID 0RF dicyclomine 20 mg tablet 1 tab PO TID 0RF trazodone 150 mg tablet 1 tab PO BEDTIME 0RF omeprazole 20 mg capsule,delayed release(DR/EC) 1 cap PO DAILY 0RF polyethylene glycol 3350 17 gram/dose powder 17 g PO DAILY 0RF diltiazem HCl 60 mg tablet 60 mg PO DAILY 0RF yyijbmajsa-reaoyroyzllab-msmj 50-325-40 mg Tablet 1 tab PO Q6H PRN (Reason: Headache) Qty: 30 0RF oxycodone 5 mg tablet 5 mg PO Q6H PRN (Reason: Pain (Scale Score 7-10)) Qty: 14 0RF
== END 2021-08-31 15:09 | disposition home or self-care (01) ==
PROVIDERS: Emergency Provider Student in an Organized Health Care Education/Training Program
DX: R07.89 Other chest pain (principal); Z79.899 Other long term (current) drug therapy
CPT/HCPCS: 36415; 71046; 80048; 80076; 83690; 84484; 85025; 93005; 96361; 96374; 99283; 99284

== ENCOUNTER → 2021-09-04 13:02 | Outpatient (REF) | payer OTHER, SELFPAY ==
--- NOTE | 2021-09-04 13:30 | ECG_ITS ---
Hook-up date: 2021-09-04 12:26:00 Duration: 45:22:00 Test Indications: PALPITATIONS Medications: [id number] QRS complexes 1 Ventricular ectopics which represent <1 % of total QRS comp. 3 Supraventricular ectopics which represent <1 % of total QRS comp. * Paced QRS complexs which represent % of total QRS comp. VENTRICULAR ECTOPY 1 Isolated 0 Bigeminal Cycles 0 Couplets 0 Runs 0 Beats in Runs * Beats LONGEST at * BPM at :: -- * Beats FASTEST at * BPM at :: -- SUPRAVENTRICULAR ECTOPY 1 Isolated 1 Couplets 0 Runs 0 Beats in Runs * Beats LONGEST at * BPM at :: -- * Beats FASTEST at * BPM at :: -- HEART RATES 55 MIN at 02:52:32 2021-09-05 94 AVG 133 MAX at 06:56:17 2021-09-05 LONGEST RR 1.1440 secs at 02:52:30 2021-09-05 S-T LEVELS Channel 1 - 128 mm at 12:26:00 2021-09-04 - 128 mm at 12:26:00 2021-09-04 Channel 2 - 128 mm at 12:26:00 2021-09-04 - 128 mm at 12:26:00 2021-09-04 Channel 3 - 128 mm at 03:14:51 -- - 128 mm at 03:14:51 Underlying rhythm is sinus; Average rate 94/min; range 55-133/min; about 35% of the time, rate >100/min; No significant ectopy, tachy or vikas arrhythmias; Patient did not return diary . Referred By: Heather James Overread By: GOOD LOPEZ
== END ==
LOC: HO.CARD 13:02
PROVIDERS: PCP Internal Medicine; Visit Provider Family Medicine
DX: R00.2 Palpitations (principal)
CPT/HCPCS: 93225; 93226

== ENCOUNTER → 2021-09-20 08:53 | Outpatient (BNVA) | payer OTHER, SELFPAY | PROVIDERS: Referring Provider Internal Medicine; Visit Provider Surgery | DX: Z12.11 Encounter for screening for malignant neoplasm of colon (principal); R10.9 Unspecified abdominal pain; G89.29 Other chronic pain | CPT/HCPCS: 99202 ==

== ENCOUNTER 2021-09-30 11:10 | Emergency (ER) | payer OTHER, SELFPAY ==
--- NOTE | ~2021-09-30 | XR_ITS ---
EXAMINATION: XR CHEST CLINICAL INFORMATION: Shortness of breath COMPARISON: Prior chest June 2020 TECHNIQUE: Frontal view of the chest was obtained. FINDINGS: No significant abnormality is noted involving the heart, lungs, mediastinum, bony thorax or soft tissues. XR/XR chest 1V IMPRESSION: Unremarkable examination.
--- NOTE | 2021-09-30 11:15 | ECG_ITS ---
Test Reason : CP Blood Pressure : / mmHG Vent. Rate : 092 BPM Atrial Rate : 092 BPM P-R Int : 194 ms QRS Dur : 086 ms QT Int : 340 ms P-R-T Axes : 043 -53 038 degrees QTc Int : 420 ms Normal sinus rhythm Left axis deviation Cannot rule out Anterior infarct (cited on or before 31-AUG-2021) Abnormal ECG When compared with ECG of 31-AUG-2021 13:21, No significant changes seen Referred By: Generic ED Physician Electronically Signed By:GOOD LOPEZ
[2021-09-30 11:23] VITALS: BP 117/79; PULSE 96; RESP 20; TEMP 36.2; O2SAT 99
[2021-09-30 11:41] LABS: MANUAL DIFF FLAG NO
[2021-09-30 11:43] LABS: Basophils Absolute Auto 0.1 X10*3/uL (0.0-0.2); Basophils Percent Auto 0.5 % (0-2); Eosinophils Absolute Auto 0.1 X10*3/uL (0.0-0.4); Eosinophils Percent Auto 0.8 % (0-4); Hematocrit 40.9 % (42.0-52.0); Hemoglobin 14.1 g/dl (14.0-18.0); Imm Gran Abs Auto 0.05 X10*3/uL (0.00-0.03); Imm Gran Pct Auto 0.5 % (0.0-0.4); Lymphocytes Percent Auto 17.8 % (20-40); Mean Corpuscular HGB Conc 34.5 g/dl (31.0-36.0); Mean Corpuscular Hemoglobin 32.6 pg (27.0-33.0); Mean Corpuscular Volume 94.5 fL (80.0-98.0); Mean Platelet Volume 10.2 fL (9.4-12.4); Monocytes Absolute Auto 1.1 X10*3/uL (0.1-1.2); Monocytes Percent Auto 9.7 % (2-11); Neutrophils Absolute Auto 7.8 x10*3/uL (2.0-8.3); Neutrophils Percent Auto 70.7 % (45-73); Platelet Count 257 X10*3/uL (160-400); Red Blood Count 4.33 X10*6/uL (4.60-5.80); Red Cell Distribution Width 12.9 % (11.0-16.0); White Blood Count 11.1 X10*3/uL (4.8-10.8)
[2021-09-30 11:58] LABS: Alanine Aminotransferase 38 U/L (0-40); Albumin Level 4.2 g/dL (3.5-5.0); Alkaline Phosphatase 84 U/L (39-117); Anion Gap 10 (12-20); Aspartate Amino Transferase 32 U/L (5-37); Bilirubin Direct < 0.2 mg/dL (0.0-0.5); Bilirubin Total 0.4 mg/dL (0.0-1.0); Blood Urea Nitrogen 14 mg/dL (9-16); Calcium 9.3 mg/dL (8.4-10.2); Carbon Dioxide 27 mmol/L (22-29); Chloride 107 mmol/L (96-108); Estimated Glomerular Filt Rate > 60; Glucose Random 81 mg/dL (60-115); Potassium 4.4 mmol/L (3.3-5.1); Sodium 140 mmol/L (135-145); Total Protein 7.2 g/dL (6.5-8.0)
--- NOTE | 2021-09-30 12:02 | ED_ITS ---
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 Patient also reports some shortness of breath with exertion. No fever, no cough, no nausea, vomiting, abdominal pain, diarrhea, diaphoresis. No leg swelling. Patient tells me the pain is constant. It is described as sharp and stabbing. It is not worsened with activity or movement. Patient does report that it increases if he takes a deep breath. He has an appointment with a industrial cafeteria manager in October. This will be his 1st time seeing a industrial cafeteria manager and he has never had any stress testing. Related Data Home Medications Medication Instructions Recorded Confirmed atorvastatin 20 mg tablet 1 tab PO DAILY 04/20/20 09/20/21 dicyclomine 20 mg tablet 1 tab PO TID 04/20/20 09/20/21 diltiazem HCl 60 mg tablet 60 mg PO DAILY 04/20/20 09/20/21 famotidine 20 mg tablet 1 tab PO BID 04/20/20 09/20/21 fluoxetine 40 mg capsule 1 cap PO QAM 04/20/20 09/20/21 gabapentin 800 mg tablet 1 tab PO TID 04/20/20 09/20/21 omeprazole 20 mg capsule,delayed 1 cap PO DAILY 04/20/20 09/20/21 release polyethylene glycol 3350 17 17 g PO DAILY 04/20/20 09/20/21 gram/dose oral powder sucralfate 100 mg/mL oral 10 ml PO QID 04/20/20 09/20/21 suspension trazodone 150 mg tablet 1 tab PO BEDTIME 04/20/20 09/20/21 fluticasone propionate 50 spray INTRANASAL 09/20/21 09/20/21 mcg/actuation nasal spray,suspension naloxone 4 mg/actuation nasal spray INTRANASAL 09/20/21 09/20/21 spray (Narcan) senna leaf extract 176 mg/5 mL 10 ml G-TUBE BEDTIME 09/20/21 09/20/21 oral syrup (senna) simethicone 180 mg capsule (Gas 180 mg PO DAILY 09/20/21 09/20/21 Relief (simethicone)) Previous Rx's Medication Instructions Recorded yrolktfbhw-tbmpntlqrigyx-ekhcolly 1 tab PO Q6H PRN #30 tab 04/21/20 50 mg-325 mg-40 mg tablet oxycodone 5 mg tablet 5 mg PO Q6H PRN #14 tab 03/11/21 cyclobenzaprine 10 mg tablet 10 mg PO TID PRN #10 tab 09/30/21 Allergies Allergy/AdvReac Type Severity Reaction Status Date / Time phenytoin [From DILANTIN] Allergy Intermediate NAUSEA Verified 09/30/21 11:23 Benadryl Allergy Unknown restless Verified 09/30/21 11:23 leg syndrome, shaky buprenorphine [Belbuca] Allergy Unknown nausea Verified 09/30/21 11:23 tramadol [TRAMADOL] Allergy Unknown UNABLE TO Verified 09/30/21 11:23 SLEEP , AGITATION, restless leg syndrome dylantin Allergy Unknown Unknown Uncoded 09/20/21 09:20 From BENADRYL Allergy Unknown AGITATION Uncoded 09/20/21 09:20 Review of Systems Review of Systems: Yes all other systems are reviewed and are negative Constitutional: Constitutional: Reports no additional constitutional co mplaints, Denies body ache(s), Denies chills, Denies fever(s), Denies headache(s) and Denies weakness Eyes: Eyes: Reports no additional eye complaints and Denies change in vision ENT: Reports system reviewed and no additional complaints, except as documented, Denies dizziness, Denies headache(s), Denies nasal congestion, Denies nasal discharge and Denies neck pain Cardiovascular: Cardiovascular: Reports no additional cardiovascular complaints, Reports chest pain, Denies leg edema, Denies dyspnea and Reports dyspnea on exertion Respiratory: Respiratory: Reports no additional respiratory complaints, Denies cough, Denies dyspnea and Reports dyspnea on exertion Gastrointestinal: Gastrointestinal: Reports no additional gastrointestinal complaints, Denies abdominal pain, Denies diarrhea, Denies nausea and Denies vomiting Genitourinary: Genitourinary: Denies urinary incontinence Musculoskeletal: Musculoskeletal: Reports no additional musculoskeletal complaints, Denies back pain, Denies arthralgias, Denies joint swelling, Denies neck pain, Denies numbness and Denies tingling Integumentary/Breasts: Skin/Breast: Reports system reviewed and no additional complaints, except as docu and Denies rash Neurologic: Reports system reviewed and no additional complaints, except as documented, Denies Abnormal speech present, Denies dizziness, Denies headache(s), Denies numbness, Denies tingling and Denies weakness PMFSH Past Medical History Attestation statement: The following information was validated with the patient. Source: old records reviewed and nursing notes reviewed Medical History Anxiety Chronic abdominal pain Chronic back pain Chronic pain Colon cancer screening Hyperlipidemia Social History Social History Alcohol intake: never Patient Tobacco Use Status: Never used Tobacco Second Hand Smoke Exposure: No Advance Directives: No Advance Directives Information Provided: No service: No Current occupational status: unemployed and disabled Current occupation: Right handed Physical Exam Vital Signs: Vital Signs: Last Vital Signs Temp 98.3 F 09/30/21 13:53 Pulse 82 09/30/21 13:53 Resp 15 09/30/21 13:53 BP 120/76 09/30/21 13:53 Pulse Ox 97 09/30/21 13:53 BMI result Body Mass Index 30.0 Const: General: cooperative, healthy appearing, comfortable and no acute distress Orientation/consciousness: patient oriented x3 Limitations: no limitations HEENT: Head: Yes normal to inspection Ears: hearing grossly normal bilat erally General nose exam: Normal external nose present Face and sinus: Yes normal facial exam Mouth: Normal oral and palatal mucosa present Throat: Yes posterior oropharynx normal Eyes: General: appearance normal, both eyes and all related structures Pupils: Equal, round and reactive pupils present Neck: Neck: Yes normal visual inspection Chest: Other: Left chest tender to palpation, worsened with left arm movement and deep breathing Soft tissues of left arm/leg tender to palp with no bony tenderness. FROM Chest palpation & inspection: normal inspection of the chest Resp: Effort & Inspection: normal respiratory effort Auscultation: clear to auscultation bilaterally Cardio: Rate: regular rate Rhythm: regular rhythm Peripheral pulses: Peripheral pulses 2+ throughout GI: Inspection: Yes normal to inspection Palpation (GI): Soft to palpation and nontender Auscultation: normal bowel sounds Back/Spine/Pelvis: Thoracic/Lumbar Spine: thoracic and lumbar spine normal to inspection Skin: General skin exam: no rashes or lesions noted Neuro: General: patient oriented x3, no focal motor deficits and normal sensation to monofilament Cranial nerves: Yes Equal, round and reactive pupils present Cognition (Neuro): normal cognition Speech: No Abnormal speech present Gait exam (Neuro): Normal gait present Motor exam (neuro): 5/5 motor strength present throughout Extrem: General: Yes normal to inspection, Yes no pedal edema and Yes no calf tenderness Course Course Course Narrative: 61-year-old male with a history of high cholesterol, chronic back pain here with left-sided chest pain with radiation to the arm and the leg the last 4 days that is constant in nature. Also reports some dyspnea on exertion with no reports of cough for fever or leg swelling. Overall the patient is well appearing. On exam the chest is tender to palpation in addition to the left arm and leg over the soft tissue. His vitals are stable. Will check labs, EKG, chest x-ray, COVID screen Reevaluation(s) Reevaluation #1: Labs are unremarkable. EKG shows no new changes. CXR shows no acute finding. Atypical for ACS. Seems more MS on exam. Has f/u with cardiology in October at [facility]. He is concerned as he feels he should be seen sooner. I have provided our cardiologists number and he can reach out to them as needed. Heart score 2 (age, HLD). We discussed he is low risk for major cardiac events. Reviewed worrisome signs and symptoms of when to return to the emergency department. Comfortable discharge home. Time: 13:45 MDM - Chest Pain MDM Narrative Medical decision making narrative: ACS-less likely with symptoms greater than 4 days/no EKG/no chest x-ray PE-less likely with negative D-dimer, no hypoxia, no tachycardia, no tachypnea, no clinical findings concerning for DVT Medical Records Data Attestation: I reviewed the patient's medical records. Lab Data Attestation: I reviewed the patient's lab results. Result diagrams: 09/30/21 11:39 09/30/21 11:33 Labs: Lab Results 09/30/21 09/30/21 09/30/21 Range/Units 11:33 11:33 11:39 WBC 11.1 H (4.8-10.8) X10*3/uL RBC 4.33 L (4.60-5.80) X10*6/uL Hgb 14.1 (14.0-18.0) g/dl Hct 40.9 L (42.0-52.0) % MCV 94.5 (80.0-98.0) fL MCH 32.6 (27.0-33.0) pg MCHC 34.5 (31.0-36.0) g/dl RDW 12.9 (11.0-16.0) % Plt Count 257 (160-400) X10*3/uL MPV 10.2 (9.4-12.4) fL Immature Gran % (Auto) 0.5 H (0.0-0.4) % Neut % (Auto) 70.7 (45-73) % Lymph % (Auto) 17.8 L (20-40) % Hitchcock % (Auto) 9.7 (2-11) % Eos % (Auto) 0.8 (0-4) % Baso % (Auto) 0.5 (0-2) % Lymph # (Auto) 2.0 (1.2-4.9) X10*3/uL Hitchcock # (Auto) 1.1 (0.1-1.2) X10*3/uL Eos # (Auto) 0.1 (0.0-0.4) X10*3/uL Baso # (Auto) 0.1 (0.0-0.2) X10*3/uL Abs Immat Gran (auto) 0.05 H (0.00-0.03) X10*3/uL Absolute Neuts (auto) 7.8 (2.0-8.3) x10*3/uL Absolute Nucleated RBC 0.000 (0.0-0.012) X10*3/uL Nucleated RBC % (auto) 0.0 (0.0-0.2) /100WBC PT (9.9-13.0) SEC INR (0.9-1.1) D-Dimer High Sensitivty NG/ML Sodium 140 (135-145) mmol/L Potassium 4.4 (3.3-5.1) mmol/L Chloride 107 (96-108) mmol/L Carbon Dioxide 27 (22-29) mmol/L Anion Gap 10 L (12-20) BUN 14 (9-16) mg/dL Creatinine 1.19 (0.5-1.4) mg/dL Estim Creat Clear Calc 62.0 Estimated GFR > 60 Random Glucose 81 (60-115) mg/dL Calcium 9.3 (8.4-10.2) mg/dL Magnesium 2.0 (1.6-2.6) mg/dL Total Bilirubin 0.4 (0.0-1.0) mg/dL Direct Bilirubin < 0.2 (0.0-0.5) mg/dL AST 32 (5-37) U/L ALT 38 (0-40) U/L Alkaline Phosphatase 84 (39-117) U/L Troponin I High Sens < 3.5 (<3.5-35.0) ng/L Total Protein 7.2 (6.5-8.0) g/dL Albumin 4.2 (3.5-5.0) g/dL COVID-19 (AMAYA) (Negative) COVID-19 Clin Com 09/30/21 09/30/21 Range/Units 12:04 12:30 WBC (4.8-10.8) X10*3/uL RBC (4.60-5.80) X10*6/uL Hgb (14.0-18.0) g/dl Hct (42.0-52.0) % MCV (80.0-98.0) fL MCH (27.0-33.0) pg MCHC (31.0-36.0) g/dl RDW (11.0-16.0) % Plt Count (160-400) X10*3/uL MPV (9.4-12.4) fL Immature Gran % (Auto) (0.0-0.4) % Neut % (Auto) (45-73) % Lymph % (Auto) (20-40) % Hitchcock % (Auto) (2-11) % Eos % (Auto) (0-4) % Baso % (Auto) (0-2) % Lymph # (Auto) (1.2-4.9) X10*3/uL Hitchcock # (Auto) (0.1-1.2) X10*3/uL Eos # (Auto) (0.0-0.4) X10*3/uL Baso # (Auto) (0.0-0.2) X10*3/uL Abs Immat Gran (auto) (0.00-0.03) X10*3/uL Absolute Neuts (auto) (2.0-8.3) x10*3/uL Absolute Nucleated RBC (0.0-0.012) X10*3/uL Nucleated RBC % (auto) (0.0-0.2) /100WBC PT 10.7 (9.9-13.0) SEC INR 0.9 (0.9-1.1) D-Dimer High Sensitivty < 150 NG/ML Sodium (135-145) mmol/L Potassium (3.3-5.1) mmol/L Chloride (96-108) mmol/L Carbon Dioxide (22-29) mmol/L Anion Gap (12-20) BUN (9-16) mg/dL Creatinine (0.5-1.4) mg/dL Estim Creat Clear Calc Estimated GFR Random Glucose (60-115) mg/dL Calcium (8.4-10.2) mg/dL Magnesium (1.6-2.6) mg/dL Total Bilirubin (0.0-1.0) mg/dL Direct Bilirubin (0.0-0.5) mg/dL AST (5-37) U/L ALT (0-40) U/L Alkaline Phosphatase (39-117) U/L Troponin I High Sens (<3.5-35.0) ng/L Total Protein (6.5-8.0) g/dL Albumin (3.5-5.0) g/dL COVID-19 (AMAYA) Negative (Negative) COVID-19 Clin Com See Note Imaging Data Chest x-ray: Attestation: I personally reviewed and interpreted this imaging study as follows: Radiologist's impression: [address] [address] XRay Report Signed Patient: Pedrito Fulton MR#: [id number] : 1960 Acct:[id number] Age/Sex: 61 / M ADM Date: 09/30/21 Loc: HO.ED Attending Dr: Ordering Physician: Emerson Mendez MD Date of Service: 09/30/21 Procedure(s): XR chest 1V Accession Number(s): [id number] cc: Emerson Mendez MD~ EXAMINATION: XR CHEST CLINICAL INFORMATION: Shortness of breath COMPARISON: Prior chest June 2020 TECHNIQUE: Frontal view of the chest was obtained. FINDINGS: No significant abnormality is noted involving the heart, lungs, mediastinum, bony thorax or soft tissues. XR/XR chest 1V IMPRESSION: Unremarkable examination. ? ECG Data ECG #1: Attestation: I personally reviewed and interpreted this ECG as follows: ECG interpretation date: 09/30/21 ECG interpretation time: 11:18 Interpretation: Normal sinus rhythm with a rate of 92, normal MO, normal QRS, normal QT. Q- waves noted in leads V1 with a inverted T-wave. Unchanged from previous EKG from august 31 2020 Discharge Plan Discharge Clinical Impression: Atypical chest pain Patient Disposition: Home, Self-Care Instructions: Chest Pain (ED) Additional Instructions: Your lab work, EKG and chest x-ray are reassuring. You are at low risk for cardiac event However, you should continue to follow-up with your appointment in October to see the industrial cafeteria manager. You may also follow-up with our cardiologists if interested Return for worsening chest pain, difficulty breathing Tylenol for pain as needed Continue your home medications Prescriptions: New cyclobenzaprine 10 mg tablet 10 mg PO TID PRN (Reason: muscle spasm) Qty: 10 0RF No Action fluoxetine 40 mg capsule 1 cap PO QAM 0RF atorvastatin 20 mg tablet 1 tab PO DAILY 0RF sucralfate 100 mg/mL suspension 10 ml PO QID 0RF famotidine 20 mg tablet 1 tab PO BID 0RF gabapentin 800 mg tablet 1 tab PO TID 0RF dicyclomine 20 mg tablet 1 tab PO TID 0RF trazodone 150 mg tablet 1 tab PO BEDTIME 0RF omeprazole 20 mg capsule,delayed release(DR/EC) 1 cap PO DAILY 0RF polyethylene glycol 3350 17 gram/dose powder 17 g PO DAILY 0RF diltiazem HCl 60 mg tablet 60 mg PO DAILY 0RF dthruyhlrx-ygfgwzgjexdzj-qfny 50-325-40 mg Tablet 1 tab PO Q6H PRN (Reason: Headache) Qty: 30 0RF oxycodone 5 mg tablet 5 mg PO Q6H PRN (Reason: Pain (Scale Score 7-10)) Qty: 14 0RF fluticasone propionate 50 mcg/actuation spray,suspension intranasal 0RF naloxone [Narcan] 4 mg/actuation spray,non-aerosol intranasal 0RF senna leaf extract [senna] 176 mg/5 mL syrup 10 ml G-tube BEDTIME 0RF simethicone [Gas Relief (simethicone)] 180 mg capsule 180 mg PO DAILY 0RF Referrals: Jules Escalona MD [Primary Care Provider] - 1 week Will Patterson MD [Physician] - 2 weeks (if desired versus your cardiologists at [facility]) Interventions: ED Discharge Assessment Last Done: 09/30/21 13:57 Discharge Date/Time: 09/30/21 13:58 Print Language: Yoruba
[2021-09-30 12:08] VITALS: BP 102/79; PULSE 80; RESP 14; O2SAT 97
[2021-09-30 12:08] LABS: Troponin-I High Sensitivity < 3.5 ng/L (<3.5-35.0)
[2021-09-30] MEDS: Ketorolac Tromethamine 30 MG/ML VIAL IVPUSH (12:14)
[2021-09-30 12:27] LABS: COVID-19 Test Negative (Negative); IDNOW Serial# 16C4AD1C
[2021-09-30 12:41] LABS: INTERNATIONAL NORM RATIO 0.9 (0.9-1.1); Prothrombin Time 10.7 SEC (9.9-13.0)
[2021-09-30 12:46] LABS: D Dimer High Sensitivity < 150 NG/ML
[2021-09-30 13:53] VITALS: BP 120/76; PULSE 82; RESP 15; TEMP 36.8; O2SAT 97
== END 2021-09-30 13:58 | disposition home or self-care (01) ==
PROVIDERS: Nurse Practitioner Family; Emergency Provider Emergency Medicine Emergency Medical Services; PCP Internal Medicine
DX: R07.89 Other chest pain (principal); R06.02 Shortness of breath; M79.605 Pain in left leg; M79.604 Pain in right leg; Z20.822 Contact with and (suspected) exposure to COVID-19; Z79.899 Other long term (current) drug therapy
CPT/HCPCS: 36415; 71045; 80048; 80076; 83735; 84484; 85025; 85379; 85610; 87635; 93005; 96374; 99284; J1885

== ENCOUNTER 2021-12-01 09:05 | Emergency (ER) | payer OTHER, SELFPAY ==
--- NOTE | ~2021-12-01 | XR_ITS ---
EXAMINATION: XR LUMBOSACRAL SPINE CLINICAL INFORMATION: Low back pain status post fall. COMPARISON: 06/25/2016 lumbar spine radiographs. TECHNIQUE: Three views of the lumbosacral spine. FINDINGS: Mild thoracolumbar dextro scoliosis with apex at L1-L2. Mild multilevel degenerative disc disease is seen. The patient is status post posterior fusion at L4-L5 with bilateral pedicle screws, posterior fixation rods and disc spacer in place. There is no acute fracture. The soft tissues are unremarkable. XR/XR lumbar spine 2-3V IMPRESSION: Mild thoracolumbar dextro scoliosis and multilevel degenerative changes without significant change. No acute osseous or hardware abnormality.
--- NOTE | ~2021-12-01 | CT_ITS ---
EXAMINATION: CT ABDOMEN AND PELVIS WITHOUT CONTRAST CT SCAN OF THE LUMBAR SPINE WITHOUT CONTRAST CLINICAL INFORMATION: point tender vertebral, leg weakness. Left lower quadrant pain COMPARISON: Prior CT 02/05/2020. Prior lumbar spine MRI 05/31/2017. TECHNIQUE: Multidetector volumetric imaging was performed from the lung bases through the pubic symphysis through the abdomen and pelvis. Subsequent dedicated thin section images through the lumbar spine were obtained. Sagittal and coronal reformatted images were obtained on the technologist workstation. This CT examination was performed using dose optimization techniques as appropriate, variously including the following: *Automated exposure control *Adjustment of mA and/or kV according to patient size (this includes techniques or standardized protocols for targeted exams where dose is matched to indication/reason for exam; i.e. extremities or head) *Use of iterative reconstruction technique FINDINGS: The lack of intravenous contrast limits evaluation of the solid visceral organs including the liver, spleen, pancreas, and kidneys. LUNG BASES: The visualized lung bases are unremarkable. LIVER, GALLBLADDER, AND BILIARY TREE: Patchy diffuse hepatic steatosis with relative focal fatty sparing adjacent to gallbladder fossa. This limits sensitivity for identifying focal liver lesions but none are seen. The gallbladder is unremarkable with no evidence of radiopaque gallstones, gallbladder wall thickening, or obvious pericholecystic inflammatory changes. PANCREAS: Limited non-contrast evaluation is normal. No kayley-pancreatic fluid. SPLEEN: Limited non-contrast evaluation is normal. ADRENAL GLANDS: Normal; no adrenal mass. KIDNEYS AND URETERS: Nonobstructing right renal calculi measuring 2 to 3 mm in the right mid kidney in right lower pole. There are punctate 1 mm nonobstructing left mid renal calculi. There is a 1 cm water density simple cyst of the lower pole the left kidney for which no imaging follow-up is recommended. GASTROINTESTINAL TRACT: Small bowel and colon are non-dilated. No bowel wall thickening. Scattered colonic diverticulosis but no pericolonic inflammatory changes to suggest colitis or diverticulitis. Normal appendix ABDOMINAL WALL: Fat-containing bilateral inguinal hernias. LYMPH NODES: No pathologically enlarged lymph nodes in the abdomen or pelvis. VASCULAR: Normal caliber abdominal aorta BLADDER: Unremarkable. PELVIC VISCERA: Normal noncontrast appearance of the prostate and seminal vesicles. OSSEOUS STRUCTURES: No acute osseous abnormality. Mild degenerative changes of the bilateral sacroiliac joints and hips. LUMBAR SPINE Normal sagittal alignment. There is degenerative disc disease at L4-L5 with an intervertebral disc spacer in place. Bilateral transpedicular screws are seen at L4-L5 with interlaminar rods. There are prominent transverse processes bilaterally at L5. The L5 transverse process is fused to the sacrum with associated sclerosis. There is a pseudoarthrosis between the left L5 transverse process and the sacrum. This can be pain generators. T12-L1, L1-L2: No central canal stenosis or neuroforaminal narrowing. L2-L3: Mild left greater than right facet arthropathy. Mild broad-based disc bulge. No central canal stenosis or neuroforaminal narrowing. L3-L4: Moderate bilateral facet arthropathy. Mild broad-based disc bulge. Mild caudal bilateral neuroforaminal narrowing. Mild effacement of the ventral CSF space. L4-L5: Postoperative changes status post L4-L5 fusion. Severe right, moderate left facet arthropathy and fragmentation. There is mild right osseous neuroforaminal narrowing. No central canal stenosis. L5-S1: No central canal stenosis or neuroforaminal narrowing. CT/CT abdomen pelvis wo con IMPRESSION: No acute CT findings in the abdomen or pelvis. Hepatic steatosis. Prior instrumented fusion L4-L5. 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 This could be a pain generator. Mild degenerative changes as described above. Consider MRI as clinically indicated.
--- NOTE | ~2021-12-01 | CT_ITS ---
EXAMINATION: CT THORACIC SPINE WITHOUT CONTRAST CLINICAL INFORMATION: Vertebral tenderness. COMPARISON: Chest radiograph dated 08/31/[address] scan dated 04/25/2018. TECHNIQUE: Multiple axial images of the thoracic spine were obtained without the administration of intravenous contrast. Coronal and sagittal reformatted images were obtained. This CT examination was performed using dose optimization techniques as appropriate, variously including the following: *Automated exposure control *Adjustment of mA and/or kV according to patient size (this includes techniques or standardized protocols for targeted exams where dose is matched to indication/reason for exam; i.e. extremities or head) *Use of iterative reconstruction technique DLP: 1141 mGy-cm FINDINGS: There is normal cervical lordosis and spinal alignment. The vertebral bodies and intervertebral disc spaces are unremarkable. Moderate right anterior marginal osteophyte formation is seen at T9-T10. The neural foramina are patent. The facet joints show mild degenerative changes at T11-T12. The spinous processes are intact. The visualized posterior ribs are intact. No significant spinal canal stenosis. The paravertebral soft tissues are unremarkable. The visualized inferior neck and mediastinum are unremarkable. The visualized left kidney shows a small nonobstructing intrarenal calculi. CT/CT thoracic spine wo con IMPRESSION: Unremarkable examination. Fleischner guidelines were followed.
[2021-12-01 09:22] VITALS: BP 126/86; PULSE 94; RESP 16; TEMP 36.5; O2SAT 97; BMI 30.9
--- NOTE | 2021-12-01 10:42 | ED.BACK ---
HPI - Back Pain/Injury General Chief Complaint: Back Pain/Injury Stated Complaint: full body pain , fell on back Time Seen by Provider: 12/01/21 10:40 Source: patient Mode of arrival: ambulatory Limitations: language barrier History of Present Illness HPI Narrative: 61-year-old Bangladeshi-speaking male with a history of chronic abdominal pain, chronic back pain, chronic pain, anxiety, and hyperlipidemia, who sees the [facility], presents for left low back pain that started 2 days ago when he slipped in the shower. Patient states he has had spinal surgery in the past, and has had leg weakness for the last 5 days and fell in the shower due to leg weakness. Also endorses 3 weeks of left lower abdominal pain. Patient uses a cane at baseline. Endorses dysuria yesterday but not today. He is not on blood thinners, he did not strike his head, no loss of consciousness. Patient denies any fevers, saddle paresthesias, incontinence of bowel or bladder, any numbness or tingling, or radiation of pain. Patient endorses leg weakness, however he is ambulatory. Related Data Home Medications Medication Instructions Recorded Confirmed atorvastatin 20 mg tablet 1 tab PO DAILY 04/20/20 09/20/21 dicyclomine 20 mg tablet 1 tab PO TID 04/20/20 09/20/21 diltiazem HCl 60 mg tablet 60 mg PO DAILY 04/20/20 09/20/21 famotidine 20 mg tablet 1 tab PO BID 04/20/20 09/20/21 fluoxetine 40 mg capsule 1 cap PO QAM 04/20/20 09/20/21 gabapentin 800 mg tablet 1 tab PO TID 04/20/20 09/20/21 omeprazole 20 mg capsule,delayed 1 cap PO DAILY 04/20/20 09/20/21 release polyethylene glycol 3350 17 17 g PO DAILY 04/20/20 09/20/21 gram/dose oral powder sucralfate 100 mg/mL oral 10 ml PO QID 04/20/20 09/20/21 suspension trazodone 150 mg tablet 1 tab PO BEDTIME 04/20/20 09/20/21 fluticasone propionate 50 spray intranasal 09/20/21 09/20/21 mcg/actuation nasal spray,suspension naloxone 4 mg/actuation nasal spray intranasal 09/20/21 09/20/21 spray (Narcan) senna leaf extract 176 mg/5 mL 10 ml G-tube BEDTIME 09/20/21 09/20/21 oral syrup (senna) simethicone 180 mg capsule (Gas 180 mg PO DAILY 09/20/21 09/20/21 Relief (simethicone)) Previous Rx's Medication Instructions Recorded [id number]-bzxfqzjdtmece-zbpenrex 1 tab PO Q6H PRN Headache #30 tabs 04/21/20 50 mg-325 mg-40 mg tablet oxycodone 5 mg tablet 5 mg PO Q6H PRN Pain (Scale Score 03/11/21 7-10) #14 tabs cyclobenzaprine 10 mg tablet 10 mg PO TID PRN muscle spasm #10 09/30/21 tabs prednisone 20 mg tablet 40 mg PO DAILY 5 days #10 tabs 12/01/21 Allergies Allergy/AdvReac Type Severity Reaction Status Date / Time phenytoin [From DILANTIN] Allergy Intermediate NAUSEA Verified 09/30/21 11:23 Benadryl Allergy Unknown restless Verified 09/30/21 11:23 leg syndrome, shaky buprenorphine [Belbuca] Allergy Unknown nausea Verified 09/30/21 11:23 tramadol [TRAMADOL] Allergy Unknown UNABLE TO Verified 09/30/21 11:23 SLEEP , AGITATION, restless leg syndrome dylantin Allergy Unknown Unknown Uncoded 09/20/21 09:20 From BENADRYL Allergy Unknown AGITATION Uncoded 09/20/21 09:20 Review of Systems Constitutional: Constitutional: Denies body ache(s), Denies chills, Denies fatigue, Denies fever(s), Denies malaise and Denies weakness Eyes: Eyes: Denies diplopia Cardiovascular: Cardiovascular: Denies chest pain, Denies syncope, Denies leg edema, Denies lightheadedness, Denies Loss of Consciousness, Denies palpitations and Denies dyspnea Respiratory: Respiratory: Denies chest congestion, Denies cough and Denies dyspnea Gastrointestinal: Gastrointestinal: Reports abdominal pain, Denies hematochezia, Denies constipation, Denies fecal incontinence, Denies diarrhea, Reports nausea and Denies vomiting Genitourinary: Genitourinary: Reports dysuria, Denies flank pain and Denies urinary incontinence Musculoskeletal: Musculoskeletal: Reports back pain, Denies numbness and Denies tingling Integumentary/Breasts: Skin/Breast: Denies rash Neurologic: Denies confusion, Denies syncope, Denies numbness, Denies Sensory deficit (Neuro), Denies tingling and Denies weakness Psychiatric: Psychiatric: Denies anxiety, Denies confusion and Denies depression Endocrine: Endocrine: Denies fatigue and Denies palpitations PMFSH Past Medical History Medical History Anxiety Chronic abdominal pain Chronic back pain Chronic pain Colon cancer screening Hyperlipidemia Social History Social History Alcohol intake: never Patient Tobacco Use Status: Never used Tobacco Second Hand Smoke Exposure: No Advance Directives: No Advance Directives Information Provided: No service: No Current occupational status: unemployed and disabled Current occupation: Right handed Physical Exam Vital Signs: Vital Signs: Last Vital Signs Temp 97.7 F 12/01/21 09:22 Pulse 94 12/01/21 09:22 Resp 16 12/01/21 09:22 BP 126/86 12/01/21 09:22 Pulse Ox 97 12/01/21 09:22 O2 Del Method 12/01/21 09:22 BMI result Body Mass Index 30.9 Const: General: No confusion Nutritional Appearance: well nourished Orientation/consciousness: No confusion Limitations: no limitations Eyes: Conjunctivae: conjunctivae normal Pupils: Equal, round and reactive pupils present EOM: EOMs intact bilaterally Neck: Neck: Yes full ROM, Yes no lymphadenopathy and Yes supple Resp: Effort & Inspection: normal respiratory effort and able to speak in complete sentences Auscultation: clear to auscultation bilaterally, no crackles, no rales, no rhonchi and no wheezes Cardio: Rate: regular rate Rhythm: regular rhythm Heart sounds: S1 normal heart sound present and S2 normal heart sound present GI: Inspection: Yes normal to inspection Palpation (GI): Soft to palpation, nontender, no guarding and not rigid Percussion: Yes normal to percussion Auscultation: normal bowel sounds : General: Yes no CVA tenderness Back/Spine/Pelvis: Back: no CVA tenderness Cervical Spine: normal cervical lordosis, cervical ROM normal, No Cervical spine tenderness, No step off deformity and No cervical ROM abnormal Thoracic/Lumbar Spine: straight leg raise negative bilaterally, thoracic spinal tenderness at T3 and at T4 and lumbar spinal tenderness Pelvis: no buttock tenderness Skin: General skin exam: no rashes or lesions noted Neuro: General: No confusion Cranial nerves: Yes Equal, round and reactive pupils present Sensory Exam: No Sensory deficit (Neuro) Extrem: Right lower extremity: normal to inspection, full ROM and normal capillary refill Left lower extremity: normal to inspection, full ROM and normal capillary refill Psych: Appearance: grossly normal Affect: normal affect Attitude: cooperative Thought process: Normal thought process present Course Course Course Narrative: 61-year-old Bangladeshi-speaking male presents for left-sided back pain after fall in the shower, and 3 weeks of left lower quadrant pain, and dysuria yesterday with nausea. On exam, patient is point tender in his midthoracic region, patient has intact lower extremity sensation, motor strength, DTRs, and pulses. Patient can get up and walk. Labs are unremarkable, urine is not infected, patient has degenerative changes in his spine, nothing acute. Nothing acute in the abdomen or pelvis. Patient does have a history of chronic back pain and chronic abdominal pain. Despite patient complaining of leg weakness, patient is able to get up and walk. Patient has intact lower extremity DTRs, pulses, and sensation. No cause for patient's lower abdominal pain found, will have patient follow-up with PCP for that, will follow up with [facility] for back pain. Reevaluation(s) Reevaluation #1: XR FINDINGS: Mild thoracolumbar dextro scoliosis with apex at L1-L2. Mild multilevel degenerative disc disease is seen. The patient is status post posterior fusion at L4-L5 with bilateral pedicle screws, posterior fixation rods and disc spacer in place. There is no acute fracture. The soft tissues are unremarkable. XR/XR lumbar spine 2-3V IMPRESSION: Mild thoracolumbar dextro scoliosis and multilevel degenerative changes without significant change. No acute osseous or hardware abnormality. FINDINGS: There is normal cervical lordosis and spinal alignment. The vertebral bodies and intervertebral disc spaces are unremarkable. Moderate right anterior marginal osteophyte formation is seen at T9-T10. The neural foramina are patent. The facet joints show mild degenerative changes at T11-T12. The spinous processes are intact. The visualized posterior ribs are intact. No significant spinal canal stenosis. The paravertebral soft tissues are unremarkable. The visualized inferior neck and mediastinum are unremarkable. The visualized left kidney shows a small nonobstructing intrarenal calculi. CT/CT thoracic spine wo con IMPRESSION: Unremarkable examination.? CT/CT lumbar spine wo con IMPRESSION: No acute CT findings in the abdomen or pelvis. ? Hepatic steatosis. ? Prior instrumented fusion L4-L5. ? 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 This could be a pain generator. ? ? Mild degenerative changes as described above. Consider MRI as clinically indicated. MDM - Back Pain/Injury Lab Data Result diagrams: 12/01/21 12:02 12/01/21 12:02 Labs: Lab Results 12/01/21 12/01/21 12/01/21 Range/Units 11:55 12:02 12:02 WBC 8.7 (4.8-10.8) X10*3/uL RBC 4.69 (4.60-5.80) X10*6/uL Hgb 15.2 (14.0-18.0) g/dl Hct 44.7 (42.0-52.0) % MCV 95.3 (80.0-98.0) fL MCH 32.4 (27.0-33.0) pg MCHC 34.0 (31.0-36.0) g/dl RDW 12.7 (11.0-16.0) % Plt Count 257 (160-400) X10*3/uL MPV 10.5 (9.4-12.4) fL Immature Gran % (Auto) 0.5 H (0.0-0.4) % Neut % (Auto) 58.4 (45-73) % Lymph % (Auto) 29.4 (20-40) % [place] % (Auto) 9.7 (2-11) % Eos % (Auto) 1.4 (0-4) % Baso % (Auto) 0.6 (0-2) % Lymph # (Auto) 2.6 (1.2-4.9) X10*3/uL [place] # (Auto) 0.9 (0.1-1.2) X10*3/uL Eos # (Auto) 0.1 (0.0-0.4) X10*3/uL Baso # (Auto) 0.1 (0.0-0.2) X10*3/uL Abs Immat Gran (auto) 0.04 H (0.00-0.03) X10*3/uL Absolute Neuts (auto) 5.1 (2.0-8.3) x10*3/uL Absolute Nucleated RBC 0.000 (0.0-0.012) X10*3/uL Nucleated RBC % (auto) 0.0 (0.0-0.2) /100WBC Sodium 139 (135-145) mmol/L Potassium 4.4 (3.3-5.1) mmol/L Chloride 105 (96-108) mmol/L Carbon Dioxide 27 (22-29) mmol/L Anion Gap 11 L (12-20) BUN 15 (9-16) mg/dL Creatinine 1.14 (0.5-1.4) mg/dL Estim Creat Clear Calc 65.6 Estimated GFR > 60 Random Glucose 95 (60-115) mg/dL Calcium 9.3 (8.4-10.2) mg/dL Total Bilirubin 0.5 (0.0-1.0) mg/dL AST 43 H (5-37) U/L ALT 49 H (0-40) U/L Alkaline Phosphatase 91 (39-117) U/L Total Protein 7.7 (6.5-8.0) g/dL Albumin 4.5 (3.5-5.0) g/dL Urine Color YELLOW Urine Appearance CLEAR Urine pH 6.0 (5.0-8.0) Ur Specific [place] 1.020 (1.005-1.025) Urine Protein NEG (NEG-TRACE) MG/DL Urine Glucose (UA) NEG (NEG) MG/DL Urine Ketones NEG (NEG) MG/DL Urine Blood NEG (NEG) Urine Nitrite NEG (NEG) Ur Leukocyte Esterase NEG (NEG) Discharge Plan Discharge Clinical Impression: Back pain, Abdominal pain Patient Disposition: Home, Self-Care Additional Instructions: Please alternate Tylenol and ibuprofen for pain. Take 1 or the other every 4 hours. For example, at midnight take 1000 mg of Tylenol, then at 4:00 a.m. take 800 mg ibuprofen, at 8:00 a.m. take 1000 mg of Tylenol, at noon take 800 mg of ibuprofen, at 4:00 p.m. take 1000 mg of Tylenol, at 8:00 p.m. take 800 mg of ibuprofen. Do not exceed 3000 mg of Tylenol in 24 hours. This method is proven to be as effective as an opioid for pain control. I have also prescribed prednisone to her pharmacy. Please call your spinal clinic for follow-up for her back pain, please call your Pain Clinic for follow-up, please call your primary care physician for follow up from today's emergency room visit for your abdominal pain. Please return to emergency room for any new or concerning symptoms. [place] Tylenol e ibuprofeno para el dolor. Lexi 1 u otro cada 4 horas. Por ejemplo, a la medianoche tex 1000 mg de Tylenol, luego a las 4:00 a. m. tex 800 mg de ibuprofeno, a las 8:00 a. m. tex 1000 mg de Tylenol, al mediod?a tex 800 mg de ibuprofeno, a las 4:00 p. m. lexi 1000 mg de Tylenol, a las 8:00 p.m. lexi 800 mg de ibuprofeno. No exceda los 3000 mg de Tylenol en 24 horas. Se ervin demostrado que danika m?todo es [place] eficaz harshil un opioide para el control del dolor. Tambi?n le he recetado prednisona a villatoro farmacia. Llame a villatoro cl?kuldip de la columna vertebral para el seguimiento de villatoro dolor de espalda, llame a villatoro cl?kuldip del dolor para el seguimiento, llame a villatoro m?dico de atenci?n primaria para el seguimiento de la visita a la tiffanie de emergencias de hoy por villatoro dolor abdominal. Regrese a la tiffanie de emergencias por cualquier s?ntoma nuevo o preocupante. Prescriptions: New prednisone 20 mg tablet 40 mg PO DAILY 5 Days Qty: 10 0RF No Action fluoxetine 40 mg capsule 1 cap PO QAM atorvastatin 20 mg tablet 1 tab PO DAILY sucralfate 100 mg/mL suspension 10 ml PO QID famotidine 20 mg tablet 1 tab PO BID gabapentin 800 mg tablet 1 tab PO TID dicyclomine 20 mg tablet 1 tab PO TID trazodone 150 mg tablet 1 tab PO BEDTIME omeprazole 20 mg capsule,delayed release(DR/EC) 1 cap PO DAILY polyethylene glycol 3350 17 gram/dose powder 17 g PO DAILY diltiazem HCl 60 mg tablet 60 mg PO DAILY bduqaqiusk-iejmfesavuwfm-rafr 50-325-40 mg Tablet 1 tab PO Q6H PRN (Reason: Headache) Qty: 30 0RF cyclobenzaprine 10 mg tablet 10 mg PO TID PRN (Reason: muscle spasm) Qty: 10 0RF oxycodone 5 mg tablet 5 mg PO Q6H PRN (Reason: Pain (Scale Score 7-10)) Qty: 14 0RF fluticasone propionate 50 mcg/actuation spray,suspension intranasal naloxone [Narcan] 4 mg/actuation spray,non-aerosol intranasal senna leaf extract [senna] 176 mg/5 mL syrup 10 ml G-tube BEDTIME simethicone [Gas Relief (simethicone)] 180 mg capsule 180 mg PO DAILY
[2021-12-01] MEDS: oxyCODONE HCl Immed Release 5 MG TABLET PO ×2 (11:29→14:16)
[2021-12-01 12:10] LABS: MANUAL DIFF FLAG NO
[2021-12-01 12:15] LABS: Basophils Absolute Auto 0.1 X10*3/uL (0.0-0.2); Basophils Percent Auto 0.6 % (0-2); Eosinophils Absolute Auto 0.1 X10*3/uL (0.0-0.4); Eosinophils Percent Auto 1.4 % (0-4); Hematocrit 44.7 % (42.0-52.0); Hemoglobin 15.2 g/dl (14.0-18.0); Imm Gran Abs Auto 0.04 X10*3/uL (0.00-0.03); Imm Gran Pct Auto 0.5 % (0.0-0.4); Lymphocytes Absolute Auto 2.6 X10*3/uL (1.2-4.9); Lymphocytes Percent Auto 29.4 % (20-40); Mean Corpuscular Hemoglobin 32.4 pg (27.0-33.0); Mean Corpuscular Volume 95.3 fL (80.0-98.0); Mean Platelet Volume 10.5 fL (9.4-12.4); Monocytes Absolute Auto 0.9 X10*3/uL (0.1-1.2); Monocytes Percent Auto 9.7 % (2-11); Neutrophils Absolute Auto 5.1 x10*3/uL (2.0-8.3); Neutrophils Percent Auto 58.4 % (45-73); Platelet Count 257 X10*3/uL (160-400); Red Blood Count 4.69 X10*6/uL (4.60-5.80); Red Cell Distribution Width 12.7 % (11.0-16.0); White Blood Count 8.7 X10*3/uL (4.8-10.8)
[2021-12-01 12:31] LABS: Alanine Aminotransferase 49 U/L (0-40); Albumin Level 4.5 g/dL (3.5-5.0); Alkaline Phosphatase 91 U/L (39-117); Anion Gap 11 (12-20); Aspartate Amino Transferase 43 U/L (5-37); Bilirubin Total 0.5 mg/dL (0.0-1.0); Blood Urea Nitrogen 15 mg/dL (9-16); Calcium 9.3 mg/dL (8.4-10.2); Carbon Dioxide 27 mmol/L (22-29); Chloride 105 mmol/L (96-108); Creatinine Clr Calc Pharmacy 65.6; Estimated Glomerular Filt Rate > 60; Glucose Random 95 mg/dL (60-115); Potassium 4.4 mmol/L (3.3-5.1); Sodium 139 mmol/L (135-145); Total Protein 7.7 g/dL (6.5-8.0)
[2021-12-01 12:32] LABS: Appearance Urine CLEAR; Color Urine YELLOW; Glucose Urine UA NEG (NEG); Leukocyte Esterase Urine NEG (NEG); Nitrite Urine NEG (NEG); Urine Blood NEG (NEG); Urine Ketones NEG (NEG); Urine Protein NEG (NEG-TRACE)
== END 2021-12-01 15:20 | disposition home or self-care (01) ==
PROVIDERS: Physician Assistant; Emergency Provider Emergency Medicine Emergency Medical Services; PCP Internal Medicine
DX: M54.9 Dorsalgia, unspecified (principal); R10.30 Lower abdominal pain, unspecified; E78.5 Hyperlipidemia, unspecified
CPT/HCPCS: 36415; 72100; 72128; 72131; 74176; 80053; 81003; 85025; 99284

== ENCOUNTER 2022-01-30 06:15 | Emergency (ER) | payer OTHER, SELFPAY ==
--- NOTE | ~2022-01-30 | XR_ITS ---
EXAMINATION: XR LUMBOSACRAL SPINE CLINICAL INFORMATION: Back pain. COMPARISON: 12/01/[address]21 lumbar [address]ographs and CT scan. TECHNIQUE: Three views of the lumbosacral spine. FINDINGS: Mild thoracolumbar dextroscoliosis is seen with apex at T12/L1. Posterior fusion hardware is seen at L4-L5 with bilateral pedicle screws and posterior fixation rods in place. Mild disc space narrowing is seen at L5-S1. The soft tissues are unremarkable. XR/XR lumbar spine 2-3V IMPRESSION: No hardware abnormality. No acute abnormality or change.
[2022-01-30 06:45] VITALS: BP 130/85; PULSE 86; RESP 16; TEMP 36.3; O2SAT 97; BMI 32.9
--- NOTE | 2022-01-30 08:06 | ED_ITS ---
HPI - General Adult General Chief complaint: Back Pain/Injury Stated complaint: back and side pain Time Seen by Provider: 01/30/22 08:06 Source: patient Mode of arrival: ambulatory Limitations: no limitations History of Present Illness HPI narrative: Patient is a 61 year old male presenting to the emergency department today with back pain. Patient states that he has chronic back pain and over the last 3 months, it has been worsening. Patient states that the pain starts in his low back and goes down the back of both of his legs. Patient denies any dizziness, lightheadedness, abdominal pain, nausea, vomiting, fever, chills, blurry vision, double vision, loss of vision, chest pain, difficulty breathing, shortness of breath, night sweats, pain with urination, increased urinary frequency, increased urinary urgency, blood in his urine or stool, syncope or a near syncopal episode, recent trauma or falls, bowel incontinence, bladder incontinence, bowel retention, bladder retention, or any other complaints at this time. Onset (ago): month(s) (3) Location: back Radiation: extremity Severity: mild Severity scale (1-10): 3 Quality: aching Pain Consistency: intermittent Relieving factors: none Exacerbating factors: none Associated symptoms: denies other symptoms Treatments prior to arrival: none Related Data Home Medications Medication Instructions Recorded Confirmed atorvastatin 20 mg tablet 1 tab PO DAILY 04/20/20 09/20/21 dicyclomine 20 mg tablet 1 tab PO TID 04/20/20 09/20/21 diltiazem HCl 60 mg tablet 60 mg PO DAILY 04/20/20 09/20/21 famotidine 20 mg tablet 1 tab PO BID 04/20/20 09/20/21 fluoxetine 40 mg capsule 1 cap PO QAM 04/20/20 09/20/21 gabapentin 800 mg tablet 1 tab PO TID 04/20/20 09/20/21 omeprazole 20 mg capsule,delayed 1 cap PO DAILY 04/20/20 09/20/21 release polyethylene glycol 3350 17 17 g PO DAILY 04/20/20 09/20/21 gram/dose oral powder sucralfate 100 mg/mL oral 10 ml PO QID 04/20/20 09/20/21 suspension trazodone 150 mg tablet 1 tab PO BEDTIME 04/20/20 09/20/21 fluticasone propionate 50 spray intranasal 09/20/21 09/20/21 mcg/actuation nasal spray,suspension naloxone 4 mg/actuation nasal spray intranasal 09/20/21 09/20/21 spray (Narcan) senna leaf extract 176 mg/5 mL 10 ml G-tube BEDTIME 09/20/21 09/20/21 oral syrup (senna) simethicone 180 mg capsule (Gas 180 mg PO DAILY 09/20/21 09/20/21 Relief (simethicone)) Previous Rx's Medication Instructions Recorded mmcooppkfr-[id number]-[id number] 1 tab PO Q6H PRN Headache #30 tabs 04/21/20 50 mg-325 mg-40 mg tablet oxycodone 5 mg tablet 5 mg PO Q6H PRN Pain (Scale Score 03/11/21 7-10) #14 tabs prednisone 20 mg tablet 40 mg PO DAILY 5 days #10 tabs 12/01/21 cyclobenzaprine 5 mg tablet 5 mg PO TID PRN muscle spasm 7 01/30/22 days #21 tabs Allergies Allergy/AdvReac Type Severity Reaction Status Date / Time phenytoin [From DILANTIN] Allergy Intermediate NAUSEA Verified 09/30/21 11:23 Benadryl Allergy Unknown restless Verified 09/30/21 11:23 leg syndrome, shaky buprenorphine [Belbuca] Allergy Unknown nausea Verified 09/30/21 11:23 tramadol [TRAMADOL] Allergy Unknown UNABLE TO Verified 09/30/21 11:23 SLEEP , AGITATION, restless leg syndrome dylantin Allergy Unknown Unknown Uncoded 09/20/21 09:20 From BENADRYL Allergy Unknown AGITATION Uncoded 09/20/21 09:20 Review of Systems Constitutional: Constitutional: Reports no additional constitutional complaints, Denies chills, Denies fever(s) and Denies night sweats Eyes: Eyes: Reports no additional eye complaints, Denies blurry vision, Denies change in vision, Denies diplopia, Denies eye discharge, Denies loss of vision and Denies eye pain ENT: Denies dizziness Cardiovascular: Cardiovascular: Reports no additional cardiovascular complaints, Denies chest pain, Denies lightheadedness, Denies Loss of Consciousness and Denies dyspnea Respiratory: Respiratory: Reports no additional respiratory complaints and Denies dyspnea Gastrointestinal: Gastrointestinal: Reports no additional gastrointestinal complaints, Denies abdominal pain, Denies melena, Denies hematochezia, Denies change in bowel habits and Denies change in stool character Genitourinary: Genitourinary: Reports no additional male genitourinary complaints, Denies hematuria, Denies oliguria, Denies difficulty urinating, Denies dysuria, Denies urinary frequency, Denies urinary hesitancy, Denies urinary incontinence and Denies urinary urgency Musculoskeletal: Musculoskeletal: Reports no additional musculoskeletal complaints, Reports back pain, Denies numbness and Denies tingling Neurologic: Denies dizziness, Denies loss of vision, Denies numbness and Denies tingling Psychiatric: Psychiatric: Reports no additional psychiatric complaints Endocrine: Endocrine: Reports no additional endocrine complaints Hematologic/Lymphatic: Hematologic/Lymphatic: Reports no additional hematologic/lymphatic complaints Allergic/Immunologic: Allergic/Immunologic: Reports no additional allergic/immunologic complaints PMFSH Past Medical History Attestation statement: The following information was validated with the patient. Source: old records reviewed Medical History Anxiety Chronic abdominal pain Chronic back pain Chronic pain Colon cancer screening Hyperlipidemia Social History Social History Alcohol intake: never Patient Tobacco Use Status: Never used Tobacco Second Hand Smoke Exposure: No Advance Directives: No Advance Directives Information Provided: No service: No Current occupational status: unemployed and disabled Current occupation: Right handed Physical Exam ED Vital Signs: Vital Signs - 24 hr 01/30/22 06:45 Temperature 97.4 F Pulse Rate 86 Respiratory Rate 16 Blood Pressure 130/85 Pulse Oximetry 97 Oxygen Delivery Method Room Air BMI result Body Mass Index 32.9 Const General: cooperative, no acute distress, alert and awake Nutritional Appearance: well nourished Orientation/consciousness: patient oriented x3 Limitations: no limitations HENMT Head: Yes normal to inspection and Yes atraumatic Ears: hearing grossly normal bilaterally and external ears normal General nose exam: Normal external nose present, no nasal discharge noted and no epistaxis Face and sinus: Yes normal facial exam, No abrasion and No laceration Mouth: Normal oral and palatal mucosa present, no drooling and no muffled voice Eyes General: appearance normal, both eyes and all related structures Periorbital: periorbital findings normal Eyelids: Yes eyelids normal Conjunctivae: conjunctivae normal Pupils: Equal, round and reactive pupils present EOM: EOMs intact bilaterally Neck Neck: Yes normal visual inspection, Yes full ROM and Yes no lymphadenopathy Chest Chest palpation & inspection: normal inspection of the chest Resp Effort & Inspection: normal respiratory effort and able to speak in complete sentences Auscultation: clear to auscultation bilaterally Cardio Rate: regular rate Rhythm: regular rhythm GI Inspection: Yes normal to inspection Palpation (GI): Soft to palpation, not firm, nontender and no guarding General: Yes no CVA tenderness Back/Spine/Pelvis Back: no CVA tenderness Cervical Spine: normal cervical lordosis and cervical ROM normal Thoracic/Lumbar Spine: thoracic and lumbar spine normal to inspection Pelvis: no pain with anterior-posterior compression Neuro General: patient oriented x3 and moves all extremities Cranial nerves: Yes Equal, round and reactive pupils present Cognition (Neuro): normal cognition Motor exam (neuro): 5/5 motor strength present throughout Sensory Exam: Normal double simultaneous stimulation for sensation Coordination: dqokgf-ry-vhav test normal Extrem General: Yes normal to inspection, Yes full ROM and Yes capillary refill normal Psych Appearance: grossly normal Mental Status: mental status grossly normal Affect: normal affect Attitude: cooperative Thought process: Normal thought process present Thought content: Normal thought content present Insight: Good insight present (Psych) Medical Decision Making MDM Narrative Medical decision making narrative: Patient is a 61 year old male presenting to the emergency department today with an acute episode of back pain in the presence of chronic pain. Patient's physical exam was unremarkable. Patient's lumbar spine x-ray showed no acute process. I explained my physical exam findings as well as all test results to the patient. I answered all questions asked by the patient. Patient received PO Flexeril and IM Toradol which he stated helped his symptoms significantly. I stressed the importance of the patient taking his medication as prescribed. I stressed the importance of the patient following up with his primary care provider, a pain specialist, and a pharmacy retail support specialist. I stressed the importance of the patient returning to the emergency department immediately if his symptoms were to worsen or if he were to develop any dizziness, shortness of breath, difficulty breathing, chest pain, blurry vision, loss of vision, nausea, vomiting, abdominal pain, fever, chills, back pain, or any other complaints. Patient verbalized agreement and understanding with this treatment plan and discharge. Medical Records Medical records reviewed: Yes I reviewed the patient's medical records. Imaging Data Lumbar spine X-ray: Attestation: I personally reviewed and interpreted this imaging study as follows: My impression: No acute fracture. Radiologist's impression: EXAMINATION: XR LUMBOSACRAL SPINE CLINICAL INFORMATION: Back pain. COMPARISON: 12/01/[address] CT scan. TECHNIQUE: Three views of the lumbosacral spine. FINDINGS: Mild thoracolumbar dextroscoliosis is seen with apex at T12/L1. Posterior fusion hardware is seen at L4-L5 with bilateral pedicle screws and posterior fixation rods in place. Mild disc space narrowing is seen at L5-S1. The soft tissues are unremarkable. XR/XR lumbar spine 2-3V IMPRESSION: No hardware abnormality. No acute abnormality or change. Dictated By: Michael Srivastava MD Signed By: Electronically signed by Michael Srivastava MD 01/30/22 0880 Discharge Plan Discharge Clinical Impression: Chronic back pain Patient Disposition: Home, Self-Care Instructions: Back Pain (ED) Additional Instructions: Follow up with your primary care provider, a pain specialist, and a pharmacy retail support specialist. Return to the emergency department immediately if your symptoms worsen or if you develop any dizziness, shortness of breath, difficulty breathing, chest pain, blurry vision, loss of vision, nausea, vomiting, abdominal pain, fever, chills, back pain, or any other complaints. Jordi un seguimiento con villatoro proveedor de atenci?n primaria, un especialista en dolor y un especialista en columna. Regrese al departamento de emergencias de inmediato si bob s?ntomas empeoran o si presenta mareos, falta de aire, dificultad para respirar, dolor de pecho, visi?n borrosa, p?rdida de la visi?n, n?useas, v?mitos, dolor abdominal, fiebre, escalofr?os, dolor de espalda o cualquier otras quejas. Prescriptions: New cyclobenzaprine 5 mg tablet 5 mg PO TID PRN (Reason: muscle spasm) 7 Days Qty: 21 0RF Discontinued cyclobenzaprine 10 mg tablet 10 mg PO TID PRN (Reason: muscle spasm) Qty: 10 0RF No Action fluoxetine 40 mg capsule 1 cap PO QAM atorvastatin 20 mg tablet 1 tab PO DAILY sucralfate 100 mg/mL suspension 10 ml PO QID famotidine 20 mg tablet 1 tab PO BID gabapentin 800 mg tablet 1 tab PO TID dicyclomine 20 mg tablet 1 tab PO TID trazodone 150 mg tablet 1 tab PO BEDTIME omeprazole 20 mg capsule,delayed release(DR/EC) 1 cap PO DAILY polyethylene glycol 3350 17 gram/dose powder 17 g PO DAILY diltiazem HCl 60 mg tablet 60 mg PO DAILY [id number]-rgntwxrkkcldw-cwvu 50-325-40 mg Tablet 1 tab PO Q6H PRN (Reason: Headache) Qty: 30 0RF oxycodone 5 mg tablet 5 mg PO Q6H PRN (Reason: Pain (Scale Score 7-10)) Qty: 14 0RF prednisone 20 mg tablet 40 mg PO DAILY 5 Days Qty: 10 0RF fluticasone propionate 50 mcg/actuation spray,suspension intranasal naloxone [Narcan] 4 mg/actuation spray,non-aerosol intranasal senna leaf extract [senna] 176 mg/5 mL syrup 10 ml G-tube BEDTIME simethicone [Gas Relief (simethicone)] 180 mg capsule 180 mg PO DAILY Referrals: [facility] [place] [facility] [Provider Group] [facility] [Provider Group] [facility] [Primary Care Provider] - Stand Alone Forms: Work/School Release Interventions: ED Discharge Assessment Last Done: 01/30/22 09:34 Discharge Date/Time: 01/30/22 09:37 Print Language: [place] Citizen
[2022-01-30] MEDS: Cyclobenzaprine HCl 5 MG TABLET PO (09:26)
[2022-01-30] MEDS: Lidocaine 4 % Patch ADH..PATCH 1 PATCH TRANSDERMA (09:27)
[2022-01-30] MEDS: Ketorolac Tromethamine 15 MG/ML VIAL IM (09:27)
== END 2022-01-30 09:37 | disposition home or self-care (01) ==
PROVIDERS: Emergency Provider Emergency Medicine
DX: M54.50 Low back pain, unspecified (principal); Z79.899 Other long term (current) drug therapy
CPT/HCPCS: 72100; 96372; 99283; 99284; J1885

== ENCOUNTER 2022-08-01 13:25 | Emergency (ER) | payer OTHER, SELFPAY ==
--- NOTE | ~2022-08-01 | XR_ITS ---
EXAMINATION: XR CHEST CLINICAL INFORMATION: Chest pain COMPARISON: None available. TECHNIQUE: 2 views of the chest were obtained. FINDINGS: The lungs are well-expanded and clear of acute process. The heart size and pulmonary vascularity is normal. There are posterior epidural electrodes lower dorsal spine. No gross bony or the body. XR/XR chest 2V IMPRESSION: Unremarkable chest exam.
--- NOTE | 2022-08-01 13:27 | ECG_ITS ---
Test Reason : CHEST PAIN Blood Pressure : / mmHG Vent. Rate : 082 BPM Atrial Rate : 082 BPM P-R Int : 194 ms QRS Dur : 088 ms QT Int : 366 ms P-R-T Axes : 031 -53 013 degrees QTc Int : 427 ms Normal sinus rhythm Left axis deviation Cannot rule out Anterior infarct (cited on or before 31-AUG-2021) Abnormal ECG When compared with ECG of 30-SEP-2021 11:18, No significant change was found Referred By: Generic ED Physician Electronically Signed By:PATT ZAMORANO MD
[2022-08-01 13:44] VITALS: BP 134/85; PULSE 86; RESP 18; TEMP 36.7; O2SAT 97; BMI 31.4
[2022-08-01 13:55] LABS: MANUAL DIFF FLAG NO
--- NOTE | 2022-08-01 13:55 | ED.CHESTPAIN ---
HPI - Chest Pain General Chief Complaint: Chest Pain <Jason Wiseman - Last Filed: 08/01/22 13:57> Stated Complaint: Chest Pain <Jason Wiseman - Last Filed: 08/01/22 13:57> Time Seen by Provider: 08/01/22 18:39 <Jason Wiseman - Last Filed: 08/01/22 13:57> Source: patient <Miles Gomez MD - Last Filed: 08/02/22 01:52> Mode of arrival: ambulatory <Miles Gomez MD - Last Filed: 08/02/22 01:52> Limitations: no limitations <Miles Gomez MD - Last Filed: 08/02/22 01:52> History of Present Illness HPI narrative: Patient with anxiety chronic chest pain for about 1 year been here multiple times comes the chest pain radiating to the left arm for last 4 days similar to that in the past no shortness of breath no nausea no vomiting pain got worse since yesterday patient had lab workup done prior to my evaluation which showed normal high sensitive troponin patient does have a increased anxiety which is getting worse lately <Miles Gomez MD - Last Filed: 08/02/22 01:52> Related Data Home Medications: Home Medications Medication Instructions Recorded Confirmed atorvastatin 20 mg tablet 1 tab PO DAILY 04/20/20 09/20/21 dicyclomine 20 mg tablet 1 tab PO TID 04/20/20 09/20/21 diltiazem HCl 60 mg tablet 60 mg PO DAILY 04/20/20 09/20/21 famotidine 20 mg tablet 1 tab PO BID 04/20/20 09/20/21 fluoxetine 40 mg capsule 1 cap PO QAM 04/20/20 09/20/21 gabapentin 800 mg tablet 1 tab PO TID 04/20/20 09/20/21 omeprazole 20 mg capsule,delayed 1 cap PO DAILY 04/20/20 09/20/21 release polyethylene glycol 3350 17 17 g PO DAILY 04/20/20 09/20/21 gram/dose oral powder sucralfate 100 mg/mL oral 10 ml PO QID 04/20/20 09/20/21 suspension trazodone 150 mg tablet 1 tab PO BEDTIME 04/20/20 09/20/21 fluticasone propionate 50 spray intranasal 09/20/21 09/20/21 mcg/actuation nasal spray,suspension naloxone 4 mg/actuation nasal spray intranasal 09/20/21 09/20/21 spray (Narcan) senna leaf extract 176 mg/5 mL 10 ml G-tube BEDTIME 09/20/21 09/20/21 oral syrup (senna) simethicone 180 mg capsule (Gas 180 mg PO DAILY 09/20/21 09/20/21 Relief (simethicone)) Previous Rx's Medication Instructions Recorded uihwfvrohc-wrsyuzqmwgdtt-pusjhwvg 1 tab PO Q6H PRN Headache #30 tabs 04/21/20 50 mg-325 mg-40 mg tablet oxycodone 5 mg tablet 5 mg PO Q6H PRN Pain (Scale Score 03/11/21 7-10) #14 tabs prednisone 20 mg tablet 40 mg PO DAILY 5 days #10 tabs 12/01/21 cyclobenzaprine 5 mg tablet 5 mg PO TID PRN muscle spasm 7 01/30/22 days #21 tabs oxycodone 5 mg tablet 5 mg PO Q6H PRN pain #20 tabs 08/01/22 <Jason Wiseman - Last Filed: 08/01/22 13:57> Allergies/Adverse Reactions: Allergies Allergy/AdvReac Type Severity Reaction Status Date / Time phenytoin [From DILANTIN] Allergy Intermediate NAUSEA Verified 09/30/21 11:23 Benadryl Allergy Unknown restless Verified 09/30/21 11:23 leg syndrome, shaky buprenorphine [Belbuca] Allergy Unknown nausea Verified 09/30/21 11:23 tramadol [TRAMADOL] Allergy Unknown UNABLE TO Verified 09/30/21 11:23 SLEEP , AGITATION, restless leg syndrome dylantin Allergy Unknown Unknown Uncoded 09/20/21 09:20 From BENADRYL Allergy Unknown AGITATION Uncoded 09/20/21 09:20 <Jason Wiseman - Last Filed: 08/01/22 13:57> Review of Systems Review of Systems: Yes all other systems are reviewed and are negative <Miles Gomez MD - Last Filed: 08/02/22 01:52> [facility] Past Medical History Medical History: Medical History Anxiety Chronic abdominal pain Chronic back pain Chronic pain Colon cancer screening Hyperlipidemia <Jason Freyay - Last Filed: 08/01/22 13:57> Social History Social History: Social History Alcohol intake: never Patient Tobacco Use Status: Never used Tobacco Second Hand Smoke Exposure: No Advance Directives: No Advance Directives Information Provided: No service: No Current occupational status: unemployed and disabled Current occupation: Right handed <Jason Wiseman - Last Filed: 08/01/22 13:57> Physical Exam Vital Signs: Vital Signs: Last Vital Signs Temp 97.8 F 08/01/22 18:36 Pulse 69 08/01/22 19:30 Resp 18 08/01/22 19:30 BP 119/83 08/01/22 19:30 Pulse Ox 97 08/01/22 19:30 O2 Del Method 08/01/22 19:30 BMI result Body Mass Index 31.4 <Jason Wiseman - Last Filed: 08/01/22 13:57> Vital Signs: Last Vital Signs Temp 97.8 F 08/01/22 18:36 Pulse 69 08/01/22 19:30 Resp 18 08/01/22 19:30 BP 119/83 08/01/22 19:30 Pulse Ox 97 08/01/22 19:30 O2 Del Method 08/01/22 19:30 BMI result Body Mass Index 31.4 <Miles Gomez MD - Last Filed: 08/02/22 01:52> Appearance: Alert. Oriented X3. No acute distress. Eyes: PERRLA, ENT: Pharynx normal. Oral Mucosa moist Neck: Normal inspection. Neck supple. CVS: Normal heart rate and rhythm. Pulses normal. Left chest wall tenderness+ Respiratory: No respiratory distress. Equal air entry bilateral, no wheezing/rales/rhonchi Abdomen: Soft and nontender. Bowel sounds are present, no mass palpable, no CVA tenderness Skin: Skin warm and dry. Normal skin color. Normal skin turgor. Extremities: No lower extremity edema. No calf tenderness Neuro: Oriented X 3. No motor deficit. No sensory deficit.No cerebellar signs , cranial nerves II-XII intact <Miles Gomez MD - Last Filed: 08/02/22 01:52> Course Course Course Narrative: 61-year-old male past medical history significant for hyperlipidemia, anxiety presents for evaluation of left-sided body pain. He reports that he has pain from his head to his foot on the left side that has been present for year. He does states that he has had worsening pain for the last 24 hours. His ?entire body pain includes chest pain, therefore cardiac workup was started <Jason Wiseman - Last Filed: 08/01/22 13:57> Medications Administered Discontinued Medications Generic Name Dose Route Start Last Admin Trade Name Freq PRN Reason Stop Dose Admin Ibuprofen 600 mg 08/01/22 16:16 08/01/22 16:19 Ibuprofen 600 Mg Tablet PO 08/01/22 16:17 600 mg ONCE ONE Administration Oxycodone HCl 5 mg 08/01/22 18:54 08/01/22 19:31 Oxycodone Hcl Immed Release 5 Mg Tablet PO 08/01/22 18:55 5 mg ONCE ONE Administration <Jason Wiseman - Last Filed: 08/01/22 13:57> Medications Administered Discontinued Medications Generic Name Dose Route Start Last Admin Trade Name Freq PRN Reason Stop Dose Admin Ibuprofen 600 mg 08/01/22 16:16 08/01/22 16:19 Ibuprofen 600 Mg Tablet PO 08/01/22 16:17 600 mg ONCE ONE Administration Oxycodone HCl 5 mg 08/01/22 18:54 08/01/22 19:31 Oxycodone Hcl Immed Release 5 Mg Tablet PO 08/01/22 18:55 5 mg ONCE ONE Administration <Miles Gomez MD - Last Filed: 08/02/22 01:52> Medical Decision Making Lab Data MDM Lab Attestation statement: I reviewed the patient's lab results. <Miles Gomez MD - Last Filed: 08/02/22 01:52> Result Diagrams: 08/01/22 13:51 08/01/22 13:51 <Jason Wiseman - Last Filed: 08/01/22 13:57> Labs: Lab Results 08/01/22 08/01/22 08/01/22 Range/Units 13:51 13:51 13:51 WBC 10.2 (4.8-10.8) X10*3/uL RBC 4.39 L (4.60-5.80) X10*6/uL Hgb 14.4 (14.0-18.0) g/dl Hct 41.4 L (42.0-52.0) % MCV 94.3 (80.0-98.0) fL MCH 32.8 (27.0-33.0) pg MCHC 34.8 (31.0-36.0) g/dl RDW 12.2 (11.0-16.0) % Plt Count 254 (160-400) X10*3/uL MPV 10.0 (9.4-12.4) fL Immature Gran % (Auto) 0.4 (0.0-0.4) % Neut % (Auto) 67.4 (45-73) % Lymph % (Auto) 22.4 (20-40) % [place] % (Auto) 7.8 (2-11) % Eos % (Auto) 1.5 (0-4) % Baso % (Auto) 0.5 (0-2) % Lymph # (Auto) 2.3 (1.2-4.9) X10*3/uL [place] # (Auto) 0.8 (0.1-1.2) X10*3/uL Eos # (Auto) 0.2 (0.0-0.4) X10*3/uL Baso # (Auto) 0.1 (0.0-0.2) X10*3/uL Abs Immat Gran (auto) 0.04 H (0.00-0.03) X10*3/uL Absolute Neuts (auto) 6.9 (2.0-8.3) x10*3/uL Absolute Nucleated RBC 0.000 (0.0-0.012) X10*3/uL Nucleated RBC % (auto) 0.0 (0.0-0.2) /100WBC Sodium 140 (135-145) mmol/L Potassium 4.1 (3.3-5.1) mmol/L Chloride 107 (96-108) mmol/L Carbon Dioxide 25 (22-29) mmol/L Anion Gap 12 (12-20) BUN 11 (9-16) mg/dL Creatinine 1.19 (0.5-1.4) mg/dL Estim Creat Clear Calc 63.3 Estimated GFR > 60 Random Glucose 101 (60-115) mg/dL Calcium 8.9 (8.4-10.2) mg/dL Troponin I High Sens < 3.5 (<3.5-35.0) ng/L <Jason Wiseman - Last Filed: 08/01/22 13:57> Lab Results 08/01/22 08/01/22 08/01/22 Range/Units 13:51 13:51 13:51 WBC 10.2 (4.8-10.8) X10*3/uL RBC 4.39 L (4.60-5.80) X10*6/uL Hgb 14.4 (14.0-18.0) g/dl Hct 41.4 L (42.0-52.0) % MCV 94.3 (80.0-98.0) fL MCH 32.8 (27.0-33.0) pg MCHC 34.8 (31.0-36.0) g/dl RDW 12.2 (11.0-16.0) % Plt Count 254 (160-400) X10*3/uL MPV 10.0 (9.4-12.4) fL Immature Gran % (Auto) 0.4 (0.0-0.4) % Neut % (Auto) 67.4 (45-73) % Lymph % (Auto) 22.4 (20-40) % [place] % (Auto) 7.8 (2-11) % Eos % (Auto) 1.5 (0-4) % Baso % (Auto) 0.5 (0-2) % Lymph # (Auto) 2.3 (1.2-4.9) X10*3/uL [place] # (Auto) 0.8 (0.1-1.2) X10*3/uL Eos # (Auto) 0.2 (0.0-0.4) X10*3/uL Baso # (Auto) 0.1 (0.0-0.2) X10*3/uL Abs Immat Gran (auto) 0.04 H (0.00-0.03) X10*3/uL Absolute Neuts (auto) 6.9 (2.0-8.3) x10*3/uL Absolute Nucleated RBC 0.000 (0.0-0.012) X10*3/uL Nucleated RBC % (auto) 0.0 (0.0-0.2) /100WBC Sodium 140 (135-145) mmol/L Potassium 4.1 (3.3-5.1) mmol/L Chloride 107 (96-108) mmol/L Carbon Dioxide 25 (22-29) mmol/L Anion Gap 12 (12-20) BUN 11 (9-16) mg/dL Creatinine 1.19 (0.5-1.4) mg/dL Estim Creat Clear Calc 63.3 Estimated GFR > 60 Random Glucose 101 (60-115) mg/dL Calcium 8.9 (8.4-10.2) mg/dL Troponin I High Sens < 3.5 (<3.5-35.0) ng/L <Miles Gomez MD - Last Filed: 08/02/22 01:52> Independent Interpretation I performed an independent interpretation of an: EKG <Miles Gomez MD - Last Filed: 08/02/22 01:52> Interpretation: Number sinus rhythm heart rate 82 beats per minute left axis deviation no acute ST change and no acute ischemia <Miles Gomez MD - Last Filed: 08/02/22 01:52> Discharge Plan Discharge Clinical Impression: Atypical chest pain, Anxiety <Jason Wiseman - Last Filed: 08/01/22 13:57> Patient Disposition: Home, Self-Care <Jason Wiseman - Last Filed: 08/01/22 13:57> Additional Instructions: your chest pain is noncardiac likely anxiety/musculoskeletal Oxycodone for severe pain as needed Follow-up with PCP <Jason Wiseman - Last Filed: 08/01/22 13:57> Prescriptions: New oxycodone 5 mg tablet 5 mg PO Q6H PRN (Reason: pain) Qty: 20 0RF Rx Instructions: Partial Fill upon patient request. No Action fluoxetine 40 mg capsule 1 cap PO QAM atorvastatin 20 mg tablet 1 tab PO DAILY sucralfate 100 mg/mL suspension 10 ml PO QID famotidine 20 mg tablet 1 tab PO BID gabapentin 800 mg tablet 1 tab PO TID dicyclomine 20 mg tablet 1 tab PO TID trazodone 150 mg tablet 1 tab PO BEDTIME omeprazole 20 mg capsule,delayed release(DR/EC) 1 cap PO DAILY polyethylene glycol 3350 17 gram/dose powder 17 g PO DAILY diltiazem HCl 60 mg tablet 60 mg PO DAILY caajjzgvah-qhclkmanfpkse-ecsp 50-325-40 mg Tablet 1 tab PO Q6H PRN (Reason: Headache) Qty: 30 0RF cyclobenzaprine 5 mg tablet 5 mg PO TID PRN (Reason: muscle spasm) 7 Days Qty: 21 0RF oxycodone 5 mg tablet 5 mg PO Q6H PRN (Reason: Pain (Scale Score 7-10)) Qty: 14 0RF prednisone 20 mg tablet 40 mg PO DAILY 5 Days Qty: 10 0RF fluticasone propionate 50 mcg/actuation spray,suspension intranasal naloxone [Narcan] 4 mg/actuation spray,non-aerosol intranasal senna leaf extract [senna] 176 mg/5 mL syrup 10 ml G-tube BEDTIME simethicone [Gas Relief (simethicone)] 180 mg capsule 180 mg PO DAILY <Jason Wiseman - Last Filed: 08/01/22 13:57> Interventions: ED Discharge Assessment Last Done: 08/01/22 19:46 <Jason Wiseman - Last Filed: 08/01/22 13:57> Discharge Date/Time: 08/01/22 19:47 <Jason Wiseman - Last Filed: 08/01/22 13:57>
[2022-08-01 13:59] LABS: Basophils Absolute Auto 0.1 X10*3/uL (0.0-0.2); Basophils Percent Auto 0.5 % (0-2); Eosinophils Absolute Auto 0.2 X10*3/uL (0.0-0.4); Eosinophils Percent Auto 1.5 % (0-4); Hematocrit 41.4 % (42.0-52.0); Hemoglobin 14.4 g/dl (14.0-18.0); Imm Gran Abs Auto 0.04 X10*3/uL (0.00-0.03); Imm Gran Pct Auto 0.4 % (0.0-0.4); Lymphocytes Absolute Auto 2.3 X10*3/uL (1.2-4.9); Lymphocytes Percent Auto 22.4 % (20-40); Mean Corpuscular HGB Conc 34.8 g/dl (31.0-36.0); Mean Corpuscular Hemoglobin 32.8 pg (27.0-33.0); Mean Corpuscular Volume 94.3 fL (80.0-98.0); Monocytes Absolute Auto 0.8 X10*3/uL (0.1-1.2); Monocytes Percent Auto 7.8 % (2-11); Neutrophils Absolute Auto 6.9 x10*3/uL (2.0-8.3); Neutrophils Percent Auto 67.4 % (45-73); Platelet Count 254 X10*3/uL (160-400); Red Blood Count 4.39 X10*6/uL (4.60-5.80); Red Cell Distribution Width 12.2 % (11.0-16.0); White Blood Count 10.2 X10*3/uL (4.8-10.8)
[2022-08-01 14:11] LABS: Anion Gap 12 (12-20); Blood Urea Nitrogen 11 mg/dL (9-16); Calcium 8.9 mg/dL (8.4-10.2); Carbon Dioxide 25 mmol/L (22-29); Chloride 107 mmol/L (96-108); Creatinine Clr Calc Pharmacy 63.3; Estimated Glomerular Filt Rate > 60; Glucose Random 101 mg/dL (60-115); Potassium 4.1 mmol/L (3.3-5.1); Sodium 140 mmol/L (135-145)
[2022-08-01 14:19] LABS: Troponin-I High Sensitivity < 3.5 ng/L (<3.5-35.0)
[2022-08-01 16:14] VITALS: BP 140/95; PULSE 75; RESP 16; TEMP 36.1; O2SAT 99
[2022-08-01] MEDS: Ibuprofen 600 MG TABLET PO (16:19)
--- OUTSIDE RECORDS SUMMARY | 2022-08-01 17:37 | XMS_ITS | Continuity of Care Document ---
:1960 Author Organization [facility] Address [address] [place] [id number]- Care Team Providers Name Role Phone Not on Staff, PCP Primary Care Physician Unavailable [place] [facility] [place]20 [facility] [address] [place] [address] Allergies, Adverse Reactions, Alerts Substance Reaction Severity Status Dilantin restless legs Active Benadryl restless legs Active traMADol can't sleep when taking Active Immunizations Given and Recorded Vaccine Date Status Refusal Reason influenza virus vaccine, inactivated 01/11/17 Recorded influenza virus vaccine, inactivated1 01/17/16 Recorded pneumococcal 23-valent vaccine 03/08/16 Given Not Given Vaccine Date Status Refusal Reason influenza virus vaccine, inactivated 10/09/15 Not Given Parent Or Guardian Refuses pneumococcal 23-valent vaccine 10/09/15 Not Given P atient Refuses 1Location History: [facility] Medications aluminum hydroxide/magnesium hydroxide/simethicone 200 mg-200 mg-20 mg/5 mL oral suspension 10 mL, By Mouth, 4 times a day, PRN for control of stomach acid, # 400 mL, 0 Refills, Maintenance, 11/27/19 16:44:00 EDT, [id number], 10 mL By Mouth 4 times a day,PRN:for control of stomach acid, 163, cm, 11/27/19 16:18:00... Start Date: 11/27/19 Status: Orderedaspirin 81 mg oral tablet 1 tablet = 81 mg, By Mouth, Daily, # 30 tablet, 0 Refills, Maintenance, 10/31/17 9:42:07 EDT, Tablet Start Date: 10/31/17 Stop Date: 11/30/17 Status: Orderedatorvastatin 20 mg oral tablet 1 tablet = 20 mg, By Mouth, Daily, # 30 tablet, 1 Refills, Maintenance, Tablet, Route to Pharmacy Electronically, [id number], [facility] 3 Start Date: 10/31/17 Stop Date: 12/30/17 Status: Orderedcolchicine 0.6 mg oral tablet 0.6 mg, By Mouth, 2 times a day, Take for 3 months, # 60 tablet, Refills 0, Tot. Refills 0, Maintenance, 12/11/17 16:42:02 EDT, Route to Pharmacy Electronically, [id number], [facility] 3 Start Date: 12/11/17 Stop Date: 03/11/18 Status: Ordereddicyclomine 10 mg oral capsule 2 capsule = 20 mg, By Mouth, Daily, 0 Refills, Maintenance, 07/21/18 2:15:01 EDT Start Date: 07/21/18 Status: Ordereddocusate sodium 100 mg oral capsule 100 mg, 1, capsule, By Mouth, 2 times a day, PRN, # 10 capsule, Refills 0, Tot. Refills 0, Maintenance, Constipation, 07/13/17 14:25:18, Print Requisition Start Date: 07/13/17 Stop Date: 07/18/17 Status: OrderedFLUoxetine 40 mg oral capsule 1 capsule = 40 mg, By Mouth, Daily, 0 Refills, Maintenance, 06/23/20 10:11:00 EST, Partial fill uponpatient request if the prescription is for a schedule II opioid drug. Start Date: 06/23/20 Status: OrderedGabapentin = 800 mg, By Mouth, 3 times a day, 0 Refills, Maintenance, 07/21/18 2:13:25 EDT Start Date: 07/21/18 Status: Orderedibuprofen 600 mg oral tablet 600 mg, 1, tablet, By Mouth, 3 times a day, Refills 0, Maintenance, 06/23/20 10:10:00 EST, Partial fill upon patient request if the prescription is for a schedule II opioid drug. Start Date: 06/23/20 Status: OrderedOmeprazole By Mouth, Daily, 0 Refills, Maintenance, 06/23/20 10:11:00 EST, Partial fill upon patient request ifthe prescription is for a schedule II opioid drug. Start Date: 06/23/20 Status: OrderedProtonix 40 mg oral delayed release tablet 1 tablet = 40 mg, By Mouth, 2 times a day, # 60 tablet, 5 Refills, Maintenance, 08/17/19 8:44:00 EDT, 162.6, cm, 05/25/19 13:18:00 EST, Height, 85.3, kg, 03/06/19 5:55:00 EDT, Dry Weight Start Date: 08/17/19 Stop Date: 02/13/20 Status: OrderedProtonix 40 mg oral granule 1 each = 40 mg, By Mouth, Daily, # 30 tablet, 0 Refills, Maintenance, 10/31/17 9:43:03 EDT, Suspension Start Date: 10/31/17 Stop Date: 11/30/17 Status: OrderedSenna 8.6 mg oral tablet 17.2 mg, 2, tablet, By Mouth, Daily, # 30 tablet, Refills 0, Tot. Refills 0, Maintenance, 10/06/17 13:41:09 EDT, Route to Pharmacy Electronically, [id number], [facility] 3 Tablet Start Date: 10/06/17 Status: OrderedSucralfate = 1 Gm, By Mouth, 3 times a day before meals and bedtime, 0 Refills, Maintenance, 06/23/20 10:12:00 EST, Partial fill upon patient request if the prescription is for a schedule II opioid drug. Start Date: 06/23/20 Status: OrderedtraZODone 150 mg oral tablet 1 tablet = 150 mg, By Mouth, Daily at bedtime, # 90 tablet, 0 Refills, Maintenance, 09/25/17 16:19:23 EDT, Tablet Start Date: 09/25/17 Status: Ordered Problem List Condition Effective Dates Status Health Status Informant Central pain syndrome(Confirmed) Active Chronic back pain(Confirmed) Active Daytime somnolence(Confirmed) Active Depression(Confirmed) Active Dysphagia(Confirmed) Active Difficulty in swallowing(Confirmed) Active Limitation due to Active disability(Confirmed)1 Drug or alcohol risk assessment or Active counseling(Confirmed)2 Low back pain(Confirmed) Active *[facility] [phone] 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
--- OUTSIDE RECORDS SUMMARY | 2022-08-01 17:37 | XMS_ITS | Continuity of Care Document ---
:1960 Author Organization [facility] Address [address] [place] [id number]- Care Team Providers Name Role Phone Dona Lopez MD, Jules Primary Care Physician [place] [facility] [place](s): 09/01/21 - 10/01/21 [facility] [address] [place] [id number]- [place] Allergies, Adverse Reactions, Alerts Substance Reaction Severity [...] P atient Refuses 1Location History: [facility] Medications amitriptyline 25 mg oral tablet 25 mg, 1, tablet, By Mouth, Daily at bedtime, Maintenance, 07/11/21 10:18:00 EST, Partial fill upon patient request if the prescription is for a schedule II opioid drug. Start Date: 07/11/21 Status: Orderedatorvastatin 20 mg oral tablet 1 tablet = 20 mg, By Mouth, Daily, # 30 tablet, 1 Refills, Maintenance, Tablet, Route to Pharmacy Electronically, [id number], [facility] Start Date: 10/31/17 Stop Date: 12/30/17 Status: OrderedCetirizine = 10 mg, By Mouth, 0 Refills, Maintenance, 08/10/20 8:44:00 EDT, Partial fill upon patient request if the prescription is for a schedule II opioid drug. Start Date: 08/10/20 Status: Ordereddicyclomine 10 mg oral capsule 2 capsule = 20 mg, By Mouth, Daily, 0 Refills, Maintenance, 07/21/18 2:15:01 EDT Start Date: 07/21/18 Status: Orderedfamotidine 20 mg oral tablet 20 mg, 1, tablet, By Mouth, 2 times a day, # 180 tablet, Refills 0, Maintenance, 08/12/20 12:16:00 EDT, Partial fill upon patient request if the prescription is for a schedule II opioid drug. Start Date: 08/12/20 Status: OrderedFLUoxetine 40 mg oral capsule 1 capsule = 40 mg, By Mouth, Daily, 0 Refills, Maintenance, 06/23/20 10:11:00 EST, Partial fill uponpatient request if the prescription is for a schedule II opioid drug. Start Date: 06/23/20 Status: OrderedFluticasone Nasal = 50 mcg, Nares, Both, 2 times a day, Maintenance, 07/11/21 10:19:00 EST, Partial fill upon patient request if the prescription is for a schedule II opioid drug. Start Date: 07/11/21 Status: OrderedGabapentin = 800 mg, By Mouth, 3 times a day, 0 Refills, Maintenance, 07/21/18 2:13:25 EDT Start Date: 07/21/18 Status: OrderedOmeprazole = 40 mg, By Mouth, Daily, Maintenance, 07/11/21 10:18:00 EST, Partial fill upon patient request if the prescription is for a schedule II opioid drug. 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
--- OUTSIDE RECORDS SUMMARY | 2022-08-01 17:37 | XMS_ITS | Continuity of Care Document ---
:1960 Author Organization [facility] Address [address] [place] [address]- Care Team Providers Name Role Phone Not on Staff, PCP Primary Care Physician Unavailable [place] [facility] [place] 01/15/20 - 02/14/20 [facility] [address] [place] [id number] [facility] Attending Physician: Iván Kevin Admitting Physician: AdmIván morales Referring Physician: [id number] Allergies, Adverse Reactions, Alerts Substance Reaction Severity [...] 0 Refills, Maintenance, 11/27/19 16:44:00 EDT, Suspension, [id number], 10 mL By Mouth 4 times a [...] Refills, Maintenance, Tablet, Route to Pharmacy Electronically, [id number], [facility] 3 Start Date: 10/31/17 Stop Date: 12/30/17 Status: Orderedcolchicine 0.6 mg oral tablet 0.6 mg, By Mouth, 2 times a day, Take for 3 months, # 60 tablet, Refills 0, Tot. Refills 0, Maintenance, 12/11/17 16:42:02 EDT, Route to Pharmacy Electronically, [id number], [facility] 3 Start Date: 12/11/17 Stop Date: 03/11/18 [...] Start Date: 07/13/17 Stop Date: 07/18/17 Status: OrderedGabapentin = 800 mg, By Mouth, 3 times a day, 0 Refills, Maintenance, 07/21/18 2:13:25 EDT Start Date: 07/21/18 Status: Orderedondansetron 4 mg oral tablet 1 tablet = 4 mg, By Mouth, Every 8 hours, 0 Refills, Maintenance, 09/25/17 16:19:38 EDT, Tablet Start Date: 09/25/17 Status: OrderedProtonix 40 mg oral delayed release [...] 10/06/17 13:41:09 EDT, Route to Pharmacy Electronically, [id number], [facility] 3 Tablet Start Date: 10/06/17 Status: OrderedtraZODone 150 mg oral tablet 1 [...] or Active counseling(Confirmed)2 Low back pain(Confirmed) Active *[facility] [phone] 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
--- OUTSIDE RECORDS SUMMARY | 2022-08-01 17:37 | XMS_ITS | Continuity of Care Document ---
:1960 Author Organization [facility] Address [address] [place] [address]- Care Team Providers Name Role Phone Not on Staff, PCP Primary Care Physician Unavailable Encounter [facility] Date(s): 05/14/20 - 05/15/[address] [address]- Discharge Disposition: A-D/C Home Attending Physician: Darion Modi MD Admitting Physician: Darion Modi MD Referring Physician: Not on Staff, Referring MD Allergies, Adverse Reactions, Alerts Substance Reaction Severity [...] 0 Refills, Maintenance, 11/27/19 16:44:00 EDT, Suspension, [id number], 10 mL By Mouth 4 times a [...] Refills, Maintenance, Tablet, Route to Pharmacy Electronically, [id number], [facility] 3 Start Date: 10/31/17 Stop Date: 12/30/17 Status: Orderedcolchicine 0.6 mg oral tablet 0.6 mg, By Mouth, 2 times a day, Take for 3 months, # 60 tablet, Refills 0, Tot. 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) Radicular pain of lower Active extremity(Confirmed) 1initial Oswestry Disability Index: 64% ( crippled ) on 02/04/15; initial Neck Disability Index: 66% on 02/04/15; initial [place] Back Pain Scale: 83 on 02/04/15; initial [place]: 12 on SOAPP-R: 14 on 02/04/15 Results Radiology Reports Exam Date Time Procedure Performing Provider Status 05/14/20 8:22 PM Chest Portable Maggie Larson; Rashid (Verified ) Notes:(Chest Portable) Reason For Exam: Chest Pain;Other:RESULT: Chest Portable Chest Portable Hx of Present Illness: Lt side chest pain, SOB; Reason: Other:; Chest Pain; Clinical Question(s): CHF COMPARISON: None. FINDINGS: LINES AND TUBES: None. LUNGS AND PLEURA: Clear lungs. Normal pulmonary vascularity. No pleural effusion. No pneumothorax. HEART, MEDIASTINUM AND CRISTINA: Heart is normal in size. Normal upper mediastinal and hilar contour. BONES AND SOFT TISSUES: No acute abnormality. IMPRESSION: No acute abnormality. WSN: [id number] Ordering Physician: Aimee Hubbard Dictated By: Carlos Phillip MD Dictated Date/Time: 05/14/20 8:38 pm Reviewed By: Carlos Phillip MD Signed By: Carlos Phillip MD Signed Date/Time: 05/14/20 8:38 pm Transcribed By: LESLEY Transcribed Date/Time: 05/14/20 8:35 pm Vital Signs Most recent to oldest 1 2 3 [Reference Range]: Height 162 cm 162 cm (05/14/20 7:11 PM) (05/14/20 7:08 PM) Weight 81.8 kg 81.8 kg (05/14/20 7:11 PM) (05/14/20 7:08 PM) Oxygen Saturation [94-100 %] 97 % 97 % 98 % (05/15/20 12:30 AM) (05/14/20 11:30 PM) (05/14/20 10:3 0 PM) Pulse Rate [55-90 bpm] 64 bpm 68 bpm 67 bpm (05/15/20 12:30 AM) (05/14/20 11:30 PM) (05/14/20 10:3 0 PM) Body Mass Index [18.5-24.99] 31.17 *>HHI* (05/14/20 7:08 PM) Blood Pressure [90-138/55-84 mm 118/83 mm Hg 123/81 mm Hg 123/87 mm Hg Hg] (05/15/20 12:30 AM) (05/14/20 11:30 PM) (05/14/20 10:3 0 PM) Respiratory Rate [16-30 br/min] 17 br/min 15 br/min 16 br/min (05/15/20 12:30 AM) *L* (05/14/20 10:30 PM) (05/14/20 11:30 PM) Temperature [96.8-100.4 DegF] 98.8 DegF (05/14/20 7:11 PM) Liters per Minute 3 L/min (05/14/20 6:56 PM) Mode of Delivery (Oxygen) Room air Room air Room a ir (05/14/20 9:30 PM) (05/14/20 8:30 PM) (05/14/20 7:30 P M) Social History Social History Type Response 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
--- OUTSIDE RECORDS SUMMARY | 2022-08-01 17:37 | XMS_ITS | Continuity of Care Document ---
:1960 Author Organization [facility] Address [address] [place] [address]- Care Team Providers Name Role Phone Dona Lopez MD, Jules Primary Care Physician Encounter [facility] [place] Date(s): 02/13/22 - 03/15/22 [facility] [address] [place] [address]- Attending Physician: Iván Kevin Admitting Physician: Iván Kevin Referring Physician: Iván Kevin Allergies, Adverse Reactions, Alerts Substance Reaction Severity Status Dilantin restless legs Active traMADol can't sleep when taking Active Benadryl restless legs Active Immunizations Given and Recorded Vaccine Date Status Refusal Reason influenza virus vaccine, inactivated 01/11/17 Recorded influenza virus vaccine, inactivated1 01/17/16 Recorded pneumococcal 23-valent vaccine 03/08/16 Given Not Given Vaccine Date Status Refusal Reason influenza virus vaccine, inactivated 10/09/15 Not Given Parent Or Guardian Refuses pneumococcal 23-valent vaccine 10/09/15 Not Given P atient Refuses 1[facility] Medications atorvastatin 20 mg oral tablet 1 tablet = 20 mg, By Mouth, Daily, # 30 tablet, 1 Refills, Maintenance, Tablet, Route to Pharmacy Electronically, [id number], [facility] 3 Start Date: 10/31/17 Stop Date: 12/30/17 Status: OrderedCetirizine = 10 mg, By Mouth, 0 Refills, Maintenance, 08/10/20 8:44:00 EDT, Partial fill upon patient request if the prescription is for a schedule II opioid drug. Start Date: 08/10/20 Status: Orderedcyclobenzaprine 10 mg oral tablet 10 mg, 1, tablet, By Mouth, 3 times a day, # 90 tablet, Refills 0, Maintenance, 01/08/22 9:13:00 EDT, Partial fill upon patient request if the prescription is for a schedule II opioid drug. Start Date: 01/08/22 Status: Ordereddicyclomine 10 mg oral capsule 2 capsule = 20 mg, By Mouth, Daily, 0 Refills, Maintenance, 07/21/18 2:15:01 EDT Start Date: 07/21/18 Status: OrderedFLUoxetine 40 mg oral capsule 1 [...] 07/21/18 2:13:25 EDT Start Date: 07/21/18 Status: OrderedHibiclens 4% soap See Instructions, shower using 1/2 bottle topically night before procedure and 1/2 bottle morning ofprocedure, # 120 mL, 0 Refills, Maintenance, 03/15/22 15:59:00 EDT, [id number], Partial fill upon patient request if the prescription... Start Date: 03/15/22 Status: OrderedOmeprazole = 20 mg, By Mouth, Daily, Maintenance, 07/11/21 10:18:00 EST, Partial fill upon patient request if the prescription is for a schedule II opioid drug. Start Date: 07/11/21 Status: OrderedtraZODone 150 mg oral tablet 1 tablet = 150 mg, By Mouth, Daily at bedtime, # 90 tablet, 0 Refills, Maintenance, 09/25/17 16:19:23 EDT, Tablet Start Date: 09/25/17 Status: Ordered Problem List Condition Confirmation Course Effective Dates Status Health Stat us Informant Central pain Confirmed Active syndrome Chronic back pain Confirmed Active Daytime somnolence Confirmed Active Depression Confirmed Active Dysphagia Confirmed Active Difficulty in Confirmed Active swallowing Limitation due to Confirmed Active disability1, 2 Drug or alcohol Confirmed Active risk assessment or counseling3 Low back pain Confirmed Active Obese class I Confirmed Active *[facility] [phone] Confirmed Active HAND 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 MOI PANDEY Failed back Confirmed Active surgical syndrome Radicular pain of Confirmed Active lower extremity 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
--- OUTSIDE RECORDS SUMMARY | 2022-08-01 17:37 | XMS_ITS | Continuity of Care Document ---
:1960 Author Organization [facility] Address [address] [place] [address]- Care Team Providers Name Role Phone Dona Lopez MD, Jules [id number] Date[facility]08[facility] - 03/16/[facility] [address] [place] [address]- Attending Physician: Francesco Farley MD Admitting Physician: Francesco Farley MD Allergies, Adverse Reactions, Alerts Substance Reaction [...] Refills, Maintenance, Tablet, Route to Pharmacy Electronically, [id number], [facility] 3 Start Date: 10/31/17 Stop Date: [...] mL, 0 Refills, Maintenance, 03/15/22 15:59:00 EDT, [id number], Partial fill upon patient request if the [...] Confirmed Active Obese class I Confirmed Active *[facility] [phone] Confirmed Active 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 Failed back Confirmed Active surgical syndrome Radicular pain of Confirmed Active lower extremity 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
--- OUTSIDE RECORDS SUMMARY | 2022-08-01 17:37 | XMS_ITS | Continuity of Care Document ---
:1960 Author Organization [facility] Address [address] [place] [address]- Care Team Providers Name Role Phone Nelson LAWSON, Angie Shah Primary Care Physician Encounter [facility] [place] Date(s): 09/06/20 - 10/06/20 [facility] [address] [place] [id number] Allergies, Adverse Reactions, Alerts Substance [...] Refills, Maintenance, Tablet, Route to Pharmacy Electronically, [id number], [facility] 3 Start Date: 10/31/17 Stop Date: [...] Start Date: 07/13/17 Stop Date: 07/18/17 Status: Orderedfamotidine 20 mg oral tablet 20 [...] Start Date: 08/17/19 Stop Date: 02/13/20 Status: OrderedSucralfate = 1 Gm, By Mouth, [...] pain(Confirmed) Active *[facility] [phone] 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
--- OUTSIDE RECORDS SUMMARY | 2022-08-01 17:37 | XMS_ITS | Continuity of Care Document ---
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, Krishna Beckman Primary Care Physician Encounter [facility] [place] Date(s): 05/27/19 - 05/27/[address] [address] [facility] Encounter Diagnosis Opiate withdrawal (Final) - 05/27/19 Discharge Disposition: A-D/C Home Attending Physician: Bronson Larios MD Admitting Physician: Bronson Larios MD Referring Physician: Not on Staff, Referring [...] P atient Refuses 1[facility] Medications aspirin 81 mg oral tablet 1 tablet = 81 mg, By Mouth, Daily, # 30 tablet, 0 Refills, Maintenance, 10/31/17 9:42:07 EDT, Tablet Start Date: 10/31/17 Stop Date: 11/30/17 Status: Orderedatorvastatin 20 mg oral tablet 1 tablet = 20 mg, By Mouth, Daily, # 30 tablet, 1 Refills, Maintenance, Tablet, Route to Pharmacy Electronically, [id number], [facility] 3 Start Date: 10/31/17 Stop Date: 12/30/17 Status: Orderedcolchicine 0.6 mg oral tablet 0.6 mg, By Mouth, 2 times a day, Take for 3 months, # 60 tablet, Refills 0, Tot. Refills 0, Maintenance, 12/11/17 16:42:02 EDT, Route to Pharmacy Electronically, [id number], [facility] 3 Start Date: 12/11/17 Stop Date: 03/11/18 Status: OrderedCreon = 24,000 units, By Mouth, 3 times a day, 0 Refills, Maintenance, 06/20/18 10:00:48 EST Start Date: 06/20/18 Status: Ordereddicyclomine 10 mg oral capsule 2 capsule = 20 mg, By Mouth, Daily, 0 Refills, Maintenance, 07/21/18 2:15:01 EDT Start Date: 07/21/18 Status: Ordereddocusate sodium 100 mg oral capsule 100 mg, 1, capsule, By Mouth, 2 times a day, PRN, # 10 capsule, Refills 0, Tot. Refills 0, Maintenance, Constipation, 07/13/17 14:25:18, Print Requisition Start Date: 07/13/17 Stop Date: 07/18/17 Status: OrderedFLUoxetine 20 mg oral capsule 20 mg, 1, capsule, By Mouth, Daily, # 30 capsule, Refills 0, Maintenance, 09/25/17 16:18:10 EDT Start Date: 09/25/17 Status: OrderedGabapentin = 800 mg, By Mouth, 3 times a day, 0 Refills, Maintenance, 07/21/18 2:13:25 EDT Start Date: 07/21/18 Status: OrderedMiraLax oral powder for reconstitution = 17 Gm, By Mouth, Daily, PRN Constipation, dissolve in water before taking, # 255 Gm, 0 Refills, Maintenance, 10/06/17 13:41:05 EDT, REC Powder, 17 Gm By Mouth Daily,PRN:Constipation,Instr:dissolve inwater before taking Start Date: 10/06/17 Status: Orderedondansetron 4 mg oral tablet 1 tablet = 4 mg, By Mouth, Every 8 hours, 0 Refills, Maintenance, 09/25/17 16:19:38 EDT, Tablet Start Date: 09/25/17 Status: OrderedPercocet 7.5/325 1 tablet, By Mouth, Every 4 hours, 0 Refills, Maintenance, 10/28/17 22:43:26 EDT Start Date: 10/28/17 Status: OrderedProtonix 40 mg oral delayed release tablet 1 tablet = 40 mg, By Mouth, 2 times a day, # 60 tablet, 5 Refills, Maintenance, 05/22/19 14:11:00 EST, 162, cm, 05/22/19 13:34:00 EST, Height, 85.3, kg, 03/06/19 5:55:00 EDT, Dry Weight Start Date: 05/22/19 Stop Date: 11/18/19 Status: OrderedProtonix 40 mg oral granule 1 each = 40 mg, By Mouth, Daily, # 30 tablet, 0 Refills, Maintenance, 10/31/17 9:43:03 EDT, Suspension Start Date: 10/31/17 Stop Date: 11/30/17 Status: OrderedSenna 8.6 mg oral tablet 17.2 mg, 2, tablet, By Mouth, Daily, # 30 tablet, Refills 0, Tot. Refills 0, Maintenance, 10/06/17 13:41:09 EDT, Route to Pharmacy Electronically, [id number], [facility] 3 Tablet Start Date: 10/06/17 Status: Orderedsucralfate 1 gm oral tablet 1 Gm, 1, tablet, By Mouth, 3 times a day before meals and bedtime, Refills 0, Maintenance, 07/21/18 2:14:43 EDT Start Date: 07/21/18 Status: OrderedtraZODone 150 mg oral tablet 1 tablet = 150 mg, By Mouth, Daily at bedtime, # 90 tablet, 0 Refills, Maintenance, 09/25/17 16:19:23 EDT, Tablet Start Date: 09/25/17 Status: OrderedZofran ODT 4 mg oral tablet, disintegrating 1 tablet = 4 mg, By Mouth, 3 times a day, allow tablet to dissolve on tongue, # 15 tablet, 0 Refills, Maintenance, 12/25/18 2:44:47 EDT Start Date: 12/25/18 Stop Date: 12/30/18 Status: Ordered Problem List Condition Effective Dates Status Health Status Informant Central pain syndrome(Confirmed) Active Chronic back pain(Confirmed) Active Daytime somnolence(Confirmed) Active Depression(Confirmed) Active Dysphagia(Confirmed) Active Difficulty in swallowing(Confirmed) Active Limitation due to Active disability(Confirmed)1 Drug or alcohol risk assessment or Active counseling(Confirmed)2 Low back pain(Confirmed) Active *[facility] [phone] YARD 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 MOI PANDEY(Confirmed) Radicular pain of lower Active extremity(Confirmed) 1initial Oswestry Disability Index: 64% ( crippled ) on 02/04/15; initial Neck Disability Index: 66% on 02/04/15; initial [place] Back Pain Scale: 83 on 02/04/15; initial [place]: 12 on SOAPP-R: 14 on 02/04/15 Results Radiology Reports Exam Date Time Procedure Performing Provider Status 05/27/19 6:09 PM Chest 2 Views Frontal and Lat Micki Randle; Auth (Verified) Notes:(Chest 2 Views Frontal and Lat) Reason For Exam: Shortness of Breath RESULT: Chest 2 Views Frontal and Lat Chest 2 Views Frontal and Lat Indication: Shortness of breath and chest pain. COMPARISON: 12/24/2018 FINDINGS: LINES AND TUBES: None. LUNGS AND PLEURA: Clear lungs. Normal pulmonary vascularity. No pleural effusion. No pneumothorax. HEART, MEDIASTINUM AND CRISTINA: Heart is normal in size. Normal mediastinal and hilar contour. BONES AND SOFT TISSUES: No acute abnormality. Large air-fluid level within the stomach. IMPRESSION: No acute abnormality. WSN: [id number] Dictated By: Carlos Phillip MD Dictated Date/Time: 05/27/19 6:11 pm Reviewed By: Carlos Phillip MD Signed By: Carlos Phillip MD Signed Date/Time: 05/27/19 6:11 pm Transcribed By: LESLEY Transcribed Date/Time: 05/27/19 6:10 pm Vital Signs Most recent to oldest [Reference Range]: 1 2 Oxygen Saturation [94-100 %] 99 % 99 % (05/27/19 6:53 PM) (05/27/19 5:02 PM) Pulse Rate [55-90 bpm] 81 bpm 83 bpm (05/27/19 6:53 PM) (05/27/19 5:02 PM) Blood Pressure [90-138/55-84 mm Hg] 130/85 mm Hg 132/ 78 mm Hg (05/27/19 6:53 PM) (05/27/19 5:02 PM) Respiratory Rate [16-30 br/min] 18 br/min 18 br/mi n (05/27/19 6:53 PM) (05/27/19 5:02 PM) Temperature [96.8-100.4 DegF] 98 DegF 97.9 DegF (05/27/19 6:53 PM) (05/27/19 5:02 PM) Mode of Delivery (Oxygen) Room air Room air (05/27/19 6:53 PM) (05/27/19 5:02 PM) Temperature Route Oral Oral (05/27/19 6:53 PM) (05/27/19 5:02 PM) Social History Social History Type Response 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
--- OUTSIDE RECORDS SUMMARY | 2022-08-01 17:37 | XMS_ITS | Continuity of Care Document ---
:1960 Author Organization [facility] Address [address] [place] [address]- Care Team Providers Name Role Phone Hector LEVINE, Krishna Beckman Primary Care Physician Encounter [facility] [place] Date(s): 08/17/19 - 08/24/19 [facility] [address] [place] [address]- [facility] Attending Physician: Jamie Rico MD Admitting Physician: Jamie Rico MD Referring Physician: Krishna Young NP Allergies, Adverse Reactions, Alerts Substance Reaction Severity [...] Refills, Maintenance, Tablet, Route to Pharmacy Electronically, [id number], [facility] 3 Start Date: 10/31/17 Stop Date: 12/30/17 Status: Orderedcolchicine 0.6 mg oral tablet 0.6 mg, By Mouth, 2 times a day, Take for 3 months, # 60 tablet, Refills 0, Tot. Refills 0, Maintenance, 12/11/17 16:42:02 EDT, Route to Pharmacy Electronically, [id number], [facility] 3 Start Date: 12/11/17 Stop Date: 03/11/18 [...] 10/06/17 13:41:09 EDT, Route to Pharmacy Electronically, [id number], 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
--- OUTSIDE RECORDS SUMMARY | 2022-08-01 17:37 | XMS_ITS | Continuity of Care Document ---
:1960 Author Organization [facility] Address [address] [place] [address]- Care Team Providers Name Role Phone Not on Staff, PCP Primary Care Physician Unavailable Encounter [facility] Date(s): 10/14/19 - 10/14/[address] [address]- [facility] Encounter Diagnosis Esophagitis (Final) - 10/14/19 Discharge Disposition: A-D/C Home Attending Physician: Jacques LAWSON, Aria Barajas Admitting Physician: Aria Hanna MD Referring Physician: Not on Staff, Referring [...] Refills, Maintenance, Tablet, Route to Pharmacy Electronically, [id number], [facility] 3 Start Date: 10/31/17 Stop Date: 12/30/17 Status: OrderedCarafate 1 gm/10 ml oral suspension 10 mL = 1 Gm, By Mouth, 3 times a day before meals and bedtime, # 1,200 mL, 0 Refills, Maintenance, 10/14/19 19:45:00 EDT, [facility] #[id number], 163, cm, 09/24/19 20:11:00 EDT, Height, 82, kg, 09/24/19 20:11:00 EDT, Dry Weight Start Date: 10/14/19 Status: Orderedcolchicine 0.6 mg oral tablet 0.6 mg, By Mouth, 2 times a day, Take for 3 months, # 60 tablet, Refills 0, Tot. Refills 0, Maintenance, 12/11/17 16:42:02 EDT, Route to Pharmacy Electronically, [id number], [facility] 3 Start Date: 12/11/17 Stop Date: [...] 16:19:38 EDT, Tablet Start Date: 09/25/17 Status: Orderedpantoprazole 20 mg oral delayed release tablet 1 tablet = 20 mg, By Mouth, Daily, # 30 tablet, 0 Refills, Maintenance, 10/14/19 19:45:00 EDT, CR Tablet, 163, cm, 09/24/19 20:11:00 EDT, Height, 82, kg, 09/24/19 20:11:00 EDT, Dry Weight Start Date: 10/14/19 Status: OrderedPercocet 7.5/325 1 tablet, By Mouth, [...] 10/06/17 13:41:09 EDT, Route to Pharmacy Electronically, [id number], 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) Radicular pain of lower Active extremity(Confirmed) 1initial Oswestry Disability Index: 64% ( crippled ) on 02/04/15; initial Neck Disability Index: 66% on 02/04/15; initial [place] Back Pain Scale: 83 on 02/04/15; initial [place]: 12 on SOAPP-R: 14 on 02/04/15 Vital Signs Most recent to oldest [Reference 1 2 3 Range]: Oxygen Saturation [94-100 %] 95 % 97 % 98 % (10/14/19 8:26 PM) (10/14/19 4:57 PM) (10/14/19 1:13 P M) Pulse Rate [55-90 bpm] 74 bpm 82 bpm 80 bpm (10/14/19 8:26 PM) (10/14/19 4:57 PM) (10/14/19 1:13 P M) Blood Pressure [90-138/55-84 mm 135/95 mm Hg 119/86 mm Hg 133/91 mm Hg Hg] (10/14/19 8:26 PM) (10/14/19 4:57 PM) (10/14/19 1:13 P M) Respiratory Rate [16-30 br/min] 16 br/min 18 br/min 16 br/min (10/14/19 8:26 PM) (10/14/19 4:58 PM) (10/14/19 4:57 P M) Temperature [96.8-100.4 DegF] 98.3 DegF 98.7 DegF (10/14/19 8:26 PM) (10/14/19 9:36 AM) Liters per Minute 0 L/min (10/14/19 8:26 PM) Mode of Delivery (Oxygen) Room air Room air Room a ir (10/14/19 8:26 PM) (10/14/19 4:57 PM) (10/14/19 1:13 P M) Blood pressure sites Arm, left Arm, left Arm, left (10/14/19 4:57 PM) (10/14/19 1:13 PM) (10/14/19 9:36 A M) Temperature Route Oral Oral (10/14/19 8:26 PM) (10/14/19 9:36 AM) Social History Social History Type Response 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
--- OUTSIDE RECORDS SUMMARY | 2022-08-01 17:37 | XMS_ITS | Continuity of Care Document ---
:1960 Author Organization [facility] Address [address] [place] [address]- Care Team Providers Name Role Phone Hector LEVINE, Krishna Beckman Primary Care Physician Encounter [facility] [place](s): 08/17/19 - 08/27/19 [facility] [address] [place] [id number]- [facility] Attending Physician: Admandrew, Patel8 Admitting Physician: AdmtrIván Referring Physician: Admtr, Ar8 Allergies, Adverse Reactions, Alerts Substance Reaction Severity [...] Refills, Maintenance, Tablet, Route to Pharmacy Electronically, [id number], [facility] Start Date: 10/31/17 Stop Date: 12/30/17 Status: Orderedcolchicine 0.6 mg oral tablet 0.6 mg, By Mouth, 2 times a day, Take for 3 months, # 60 tablet, Refills 0, Tot. 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
--- OUTSIDE RECORDS SUMMARY | 2022-08-01 17:37 | XMS_ITS | Continuity of Care Document ---
:1960 Author Organization [facility] Address [address] [place] [address]- Care Team Providers Name Role Phone Nelson LAWSON, Angie Shah Primary Care Physician Encounter [facility] [place] Date(s): 09/29/20 - 09/29/[address] [address]- Discharge Disposition: A-D/C Home Attending Physician: Jamie Cline MD Admitting Physician: Jamie Cline MD Referring Physician: Christopher Myers MD Allergies, Adverse Reactions, Alerts Substance Reaction [...] Refills, Maintenance, Tablet, Route to Pharmacy Electronically, [id number], [facility] Start Date: 10/31/17 Stop [...] II opioid drug. 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) Radicular pain of lower Active extremity(Confirmed) 1initial Oswestry Disability Index: 64% ( crippled ) on 02/04/15; initial Neck Disability Index: 66% on 02/04/15; initial [place] Back Pain Scale: 83 on 02/04/15; initial [place]: 12 on SOAPP-R: 14 on 02/04/15 Vital Signs Most recent to oldest [Reference Range]: 1 2 Oxygen Saturation [94-100 %] 96 % (09/29/20 12:00 PM) Pulse Rate [55-90 bpm] 94 bpm *H* (09/29/20 12:00 PM) Blood Pressure [90-138/55-84 mm Hg] 121/79 mm Hg (09/29/20 12:00 PM) Respiratory Rate [16-30 br/min] 18 br/min 18 br/mi n (09/29/20 4:39 PM) (09/29/20 12:00 PM) Temperature [96.8-100.4 DegF] 98.0 DegF (09/29/20 12:00 PM) Mode of Delivery (Oxygen) Room air (09/29/20 12:00 PM) Blood pressure sites Arm, right (09/29/20 12:00 PM) Temperature Route Oral (09/29/20 12:00 PM) Social History Social History Type Response 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
--- OUTSIDE RECORDS SUMMARY | 2022-08-01 17:37 | XMS_ITS | Continuity of Care Document ---
:1960 Author Organization [facility] Address [address] [place] [id number]- Care Team Providers Name Role Phone Hector FASHION ADVISER, Krishna Beckman Primary Care Physician [place] [facility] [place] - 09/24/[address] [address]- [facility] Encounter Diagnosis Precordial chest pain (Final) - 09/24/19 Discharge Disposition: A-D/C Home Attending Physician: Brooke De Los Santos MD Admitting Physician: Brooke De Los Santos MD Referring Physician: Not on Staff, Referring [...] Refills, Maintenance, Tablet, Route to Pharmacy Electronically, [id number], [facility] 3 Start Date: 10/31/17 Stop Date: 12/30/17 Status: Orderedcolchicine 0.6 mg oral tablet 0.6 mg, By Mouth, 2 times a day, Take for 3 months, # 60 tablet, Refills 0, Tot. 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) Radicular pain of lower Active extremity(Confirmed) 1initial Oswestry Disability Index: 64% ( crippled ) on 02/04/15; initial Neck Disability Index: 66% on 02/04/15; initial [place] Back Pain Scale: 83 on 02/04/15; initial [place]: 12 on SOAPP-R: 14 on 02/04/15 Results Orders for Microbiology Reports Name Date Blood Culture 09/24/19 Microbiology Reports TEST:Blood Culture STATUS:Unauthenticated BODY SITE: SOURCE:Blood COLLECTED DATE/TIME:09/24/19 1:58 PMBlood Culture SPECIMEN DESCRIPTION : BLOOD LAC SPECIAL REQUESTS : NONE REPORT STATUS : PRELIMINARY REPORT Radiology Reports Exam Date Time Procedure Performing Provider Status 09/24/19 2:24 PM Chest Portable Sophia Licona; Auth (Verifie d) Notes:(Chest Portable) Reason For Exam: Chest Pain;Other:RESULT: Chest Portable Chest Portable Reason: Other:; Chest Pain; Clinical Question(s): CHF COMPARISON: 05/27/2019 FINDINGS: LINES AND TUBES: None. LUNGS AND PLEURA: Shallow inspiratory film. Minimal left basilar atelectasis. No dense consolidation. No cephalization. No pleural effusion. No pneumothorax. HEART, MEDIASTINUM AND CRISTINA: The cardiac silhouette is at the upper limits of normal for size, but this is likely exaggerated by shallow inspiration and AP technique. Tortuous thoracic aorta. No hilar enlargement. BONES AND SOFT TISSUES: No acute abnormality. IMPRESSION: Shallow inspiratory film. Minimal left basilar atelectasis. WSN: [id number] Ordering Physician: Pato Gaspar Dictated By: Won Damon MD Dictated Date/Time: 09/24/19 2:27 pm Reviewed By: Won Damon MD Signed By: Won Damon MD Signed Date/Time: 09/24/19 2:27 pm Transcribed By: LESLEY Transcribed Date/Time: 09/24/19 2:25 pm Vital Signs Most recent to oldest 1 2 3 [Reference Range]: Height 163 cm 163 cm 163 cm (09/24/19 8:11 PM) (09/24/19 5:41 PM) (09/24/19 3:4 9 PM) Weight 82 kg 82 kg 82 kg (09/24/19 8:11 PM) (09/24/19 5:41 PM) (09/24/19 3:4 9 PM) Oxygen Saturation [94-100 100 % 98 % 99 % %] (09/24/19 9:35 PM) (09/24/19 8:11 PM) (09/24/19 5:4 1 PM) Pulse Rate [55-90 bpm] 78 bpm 77 bpm 86 bpm (09/24/19 9:35 PM) (09/24/19 8:11 PM) (09/24/19 5:4 1 PM) Body Mass Index 30.86 30.86 30.86 [18.5-24.99] *>HHI* *>HHI* *>HHI* (09/24/19 8:11 PM) (09/24/19 5:41 PM) (09/24/19 3:4 9 PM) Blood Pressure 126/94 mm Hg 130/82 mm Hg 151/97 mm Hg [90-138/55-84 mm Hg] (09/24/19 9:35 PM) (09/24/19 8:11 PM) *H* (09/24/19 5:41 PM ) Respiratory Rate [16-30 14 br/min 16 br/min 14 br/mi n br/min] *L* (09/24/19 8:11 PM) *L* (09/24/19 9:35 PM) (09/24/19 6:38 PM) Temperature [96.8-100.4 97.8 DegF 98.5 DegF DegF] (09/24/19 9:35 PM) (09/24/19 1:36 PM) Mode of Delivery (Oxygen) Room air Room air Room a ir (09/24/19 9:35 PM) (09/24/19 8:11 PM) (09/24/19 5:4 1 PM) Blood pressure sites Arm, left Arm, left Arm, right (09/24/19 9:35 PM) (09/24/19 8:11 PM) (09/24/19 1:3 6 PM) Temperature Route Oral Oral (09/24/19 9:35 PM) (09/24/19 1:36 PM) Dry Weight 82 kg 82 kg 82 kg (09/24/19 8:11 PM) (09/24/19 5:41 PM) (09/24/19 3:4 9 PM) Weight Obtained Via Patient/family stated (09/24/19 1:36 PM) Dry Weight Obtained Via Patient/family stated (09/24/19 1:36 PM) Social History Social History Type Response 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
--- OUTSIDE RECORDS SUMMARY | 2022-08-01 17:37 | XMS_ITS | Continuity of Care Document ---
:1960 Author Organization [facility] Address [address] [place] [address]- Care Team Providers Name Role Phone Dona Lopez MD, Jules Primary Care Physician [phone] [place] [facility] [place]): [place] - 05/31/[address] [address] Discharge Disposition: A-D/C Home Attending Physician: Francesco Farley MD Admitting Physician: Francesco Farley MD Referring Physician: Francesco Farley MD Allergies, Adverse Reactions, [...] Refills, Maintenance, Tablet, Route to Pharmacy Electronically, [id number], [facility] Start Date: 10/31/17 Stop Date: 12/30/17 Status: Orderedcephalexin monohydrate 500 mg oral capsule 1 capsule = 500 mg, By Mouth, Every 12 hours, Please complete all capsules, # 6 capsule, 0 Refills, Acute 06/03/22 12:05:00 EST, 05/31/22 12:04:00 EST, Capsule, [facility] #[id number], Partial fill upon patient request if the prescription is for... Start Date: 05/31/22 Stop Date: 06/03/22 Status: OrderedCetirizine = 10 mg, By Mouth, [...] EDT Start Date: 07/21/18 Status: OrderedOmeprazole = 20 mg, By Mouth, Daily, Maintenance, 07/11/21 10:18:00 EST, Partial fill upon patient request if the prescription is for a schedule II opioid drug. Start Date: 07/11/21 Status: OrderedoxyCODONE 5 mg oral tablet 5 mg, 1, tablet, By Mouth, Every 6 hours, PRN, Only take for moderate to severe pain, # 18 tablet, Refills 0, Tot. Refills 0, Acute 06/03/22 12:02:00 EST, for pain, 05/31/22 12:01:00 EST, Route to Pharmacy Electronically, [facility] #[id number],... 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 1Oswestry Disability Index:pain scale: 24% moderate disability on initial Oswestry Disability Index: 64% ( crippled ) on 02/04/15; initial Neck Disability Index: 66% on 02/04/15; initial [place] Back Pain Scale: 83 on 02/04/15; initial [place]: 12 on SOAPP-R: 14 on 02/04/15 Results Radiology Reports Exam Date Time Procedure Performing Provider Status 05/31/22 11:37 AM C-Arm > 1 Hour Lucie Ch; Rashid (Loretta mc) Notes:(C-Arm > 1 Hour) Reason For Exam: spinal stimulator implantation; TT: 1 hr 50 min FT: 1 min 2secRESULT: C-Arm > 1 Hour C-Arm > 1 Hour INDICATION: Reason: spinal stimulator implantation; TT: 1 hr 50 min FT: 1 min 2sec COMPARISONS: None TECHNIQUE: Fluoroscopy support was provided. There was no radiologist in attendance. FLUOROSCOPY TIME: 1 minute, 27.8 seconds TECHNOLOGIST TIME: 1 hour, 50 minutes FINDINGS: Fluoroscopy support was provided. There was no radiologist in attendance. IMPRESSION: See above. WSN: [id number] Ordering Physician: Francesco Farley Dictated By: Mateo Glasgow MD Dictated Date/Time: 05/31/22 5:06 pm Reviewed By: Mateo Glasgow MD Signed By: Mateo Glasgow MD Signed Date/Time: 05/31/22 5:06 pm Transcribed By: LESLEY Transcribed Date/Time: 05/31/22 4:32 pm Vital Signs Most recent to oldest 1 2 3 [Reference Range]: Height 162.56 cm 162.56 cm (05/31/22 7:50 AM) (05/29/22 3:30 PM) Weight 82.2 kg 80.00 kg (05/31/22 7:50 AM) (05/29/22 3:30 PM) Oxygen Saturation [94-100 98 % 99 % 100 % %] (05/31/22 12:15 PM) (05/31/22 12:00 PM) (05/31/22 1 1:45 AM) Pulse Rate [55-90 bpm] 94 bpm *H* (05/31/22 7:50 AM) Body Mass Index 31.11 kg/m2 30.27 kg/m2 [18.5-24.99 kg/m2] *>HHI* *>HHI* (05/31/22 7:50 AM) (05/29/22 3:30 PM) Blood Pressure 136/94 mm Hg 136/89 mm Hg 149/95 mm Hg [90-138/55-84 mm Hg] (05/31/22 12:15 PM) (05/31/22 12:00 PM) *H* (05/31/22 11:45 A M) Respiratory Rate [16-30 16 br/min 16 br/min 22 br/mi n br/min] (05/31/22 12:51 PM) (05/31/22 12:15 PM) (05/31/22 1 2:00 PM) Temperature [96.8-100.4 98.9 DegF 99 DegF 97.9 Deg F DegF] (05/31/22 12:30 PM) (05/31/22 11:45 AM) (05/31/22 7 :50 AM) Liters per Minute 6 L/min (05/31/22 11:45 AM) Mode of Delivery (Oxygen) Room air Room air Simple face mask (05/31/22 12:15 PM) (05/31/22 12:00 PM) (05/31/22 1 1:45 AM) Blood pressure sites Arm, right (05/31/22 11:45 AM) Temperature Route Temporal Temporal Temporal (05/31/22 12:30 PM) (05/31/22 11:45 AM) (05/31/22 7 :50 AM) Dry Weight 82.2 kg 80.00 kg (05/31/22 7:50 AM) (05/29/22 3:30 PM) Weight Obtained Via Standing scale (05/31/22 7:50 AM) Dry Weight Obtained Via Standing scale Patient/family stated (05/31/22 7:50 AM) (05/29/22 3:30 PM) Social History Social History Type Response 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 Note Rain Perez RN: PERFORM Event Display: Discharge/Transfer Note Hospital Authored Date: [id number] Nursing Discharge Note Entered On: 05/31/2022 13:46 EST Performed On: 05/31/2022 13:46 EST by Rain Perez RN Nursing Discharge Note 2 Discharge Time : 05/31/2022 13:46 EST Discharge Level of Care at Discharge : Home/Correction/Foster Care Patient Left Unit Via : Wheelchair Patient Accompanied Off Unit with : Responsible adult DC Instructions Provided & Signed by Pt : Yes Patient Understands D/C Instructions : Yes Patient Instructions Discharge Signed : Yes Did Pt have Specialty Bed or Wound Vac : No Rain Perez RN - 05/31/2022 13:46 Lu Trjeo RN: PERFORM Event Display: Patient Education/Instruction Authored Date: [id number] Inpatient Adult Discharge Instructions [address] [address] Name: SARAH BETH ARAUJO : 1960 Visit: 05/31/2022 07:35:00 Current Date: 05/31/2022 12:32 Account: [id number] Inpatient Adult Discharge Instructions We would like to thank you for allowing us to assist you with your healthcare needs. The following includes patient education materials and information regarding your injury/illness. Our entire staff strives to provide an excellent experience for our patients and their families. PLEASE ENSURE YOU FOLLOW-UP PER THE INSTRUCTIONS BELOW! ?? YOUR OPINION IS IMPORTANT TO US! Please complete the survey you may receive by mail or email. Your feedback will be used to make improvements to the healthcare experiences of our patients and their families. Surveys are administered by [employer]. ?? If further treatment with your primary care physician or another doctor is recommended, it is important for you to keep the appointment. Call your primary care physician or return to the Emergency Department immediately if your condition worsens, fails to improve, or new symptoms develop. If you need to find a doctor, you can call [facility] for a referral at [phone] or toll free at [phone] ([phone]) or log in to [email or web address] ?? You can view and manage your care through the patient portal or by using a health care niranjan of your choosing. [employer] is a website that allows you to securely view your medical information including your hospital discharge summary, office visit summaries, medications and follow-up visits. You can also request appointments, renew medications, and request access to your medical information using a health care niranjan of your choosing, or just ask a question. You can enroll at [email or web address] or register during your next office visit. You have been discharged from [facility], Patient Care Unit: [facility]. If you have any questions regarding these instructions after you leave, please call us and we will be happy to assist you. [facility] Your Care Team Attending Physician Miguelito LAWSON, [facility] Consulting Providers Fabby Lopez DO; Austen LAWSON, [facility] Discharging Providers Rajan Horowitz DO Reason for Admission FAILED BACK SURGICAL SYNDROME WITH L5-S1 TLF CS DS Tests Performed Below is a partial list of the tests performed during your hospitalization. You may have had other tests and procedures not included in this list. Please discuss all test results with your provider. Primary Care Provider Dona Lopez MDJules Advance Directive Health Care Proxy on File Yes - Health Care Proxy Yes - MOLST No qualifying data available. Discharge Vitals Temperature: 99 DegF Height: 162.56 cm Pulse Rate:??94 bpm??High Weight: 82.2 kg Respiratory Rate: 16 br/min Body Mass Index:??31.11 kg/m2??Critical Systolic Blood Pressure: 136 mm Hg Body surface area: 1.93 Diastolic Blood Pressure:??94 mm Hg??High ?? Oxygen Saturation: 98 % ?? Studies Pending All tests and labs ordered during this hospital stay have been completed unless listed below. Pleasediscuss all pending results with your provider listed above in these instructions. ?? C-Arm > 1 Hour What to do next Instructions From Your Doctor Discharge Orders Instructions from your Care Team ? Post-op discharge instruction for spinal cord stimulator placement. ? Medications -Complete your antibiotic course Keflex (Cephalexin) 500mg BID for 3 days - Oxycodone as needed for pain sent to pharmacy, follow instructions on prescription. No drinking alcohol or driving. ?? Wound care -Keep your incision dry and clean. -If you notice drainage, redness, swelling or increased pain at the incision, call the pain clinic. ? Showering -You may shower when the wound has been clean and dry for 24 hours. Do don???t scrub the incision orsoap it. Just let water run over it. -Make sure you pat the incision completely dry after showering. Be gentle?do not scrub the incision. -Do not immerse the incision in a pool or bath until 6 weeks after surgery ?? Activities -Walking is the best activity. Walk as much as you like. It is good for you and it will help you recover more quickly. -AVOID the BLTs: Bending, lifting, and twisting of your lower back. ?? Follow up -You are scheduled for post-op visit at the pain clinic on 06/08/22 at 7:10 AM? Scheduled Follow-Up Appointments Saturday 7:10 AM EST ?? With: Miguelito LAWSON [facility] Where: [facility] [address] [place] [address]- You Need to Schedule the Following Appointments Follow Up with??Francesco Farley MD When?? Where: [address] [place] [address], 2nd floor [facility] [place] [address]- Discharge Medications SARAH BETH ARAUJO :1960 Visit Date:05/31/2022 Medications: Please continue your medications until treatment is completed or stopped by your provider. Medications not listed below should be discontinued. Discuss any questions related to medications with your provider. What How Much When Instructions Next Dose New Cephalexin (cephalexin monohydrate 500 mg oral capsule) 1 capsule Oral Every 12 hours Please complete all capsules ?? Pickup at [email or web address] #[id number] New Oxycodone (oxyCODONE 5 mg oral tablet) 1 tab(s) Oral Every 6 hours as needed for for pain Only take for moderate to severe pain ?? Pickup at [email or web address] #[id number] Unchanged Atorvastatin (atorvastatin 20 mg oral tablet) 1 tab(s) Oral Daily Duration: 30 Days Unchanged Cetirizine 10 Milligram Oral Unchanged Cyclobenzaprine (cyclobenzaprine 10 mg oral tablet) 1 tab(s) Oral 3 times a day Unchanged Dicyclomine (dicyclomine 10 mg oral capsule) 2 capsule Oral Daily Unchanged Fluoxetine (FLUoxetine 40 mg oral capsule) 1 capsule Oral Daily Unchanged Fluticasone Nasal 50 Microgram Nares, Both Twice a day Unchanged Gabapentin 800 Milligram Oral 3 times a day Unchanged Omeprazole 20 Milligram Oral Daily Unchanged Trazodone (traZODone 150 mg oral tablet) 1 tab(s) Oral Daily at Bedtime Pharmacy Information [facility] #[id number]: [address] [place], [place] [id number] [phone] Test Results Below is a partial list of the most recent Laboratory test results done prior to this discharge. You may have had other tests and procedures not included in this list. Please discuss all test results with your provider. Allergies (NKA means No Known Allergies) Benadryl??(restless legs) Dilantin??( restless legs ) traMADol??( can't sleep when taking ) Problems Active Problems??(14) *[facility] [phone] LAB[employer] BARN MOI PANDEY?? Central pain syndrome?? Chronic back pain?? Daytime somnolence?? Depression?? Difficulty in swallowing?? Drug or alcohol risk assessment or counseling?? Dysphagia?? Failed back surgical syndrome?? Limitation due to disability?? Low back pain?? Obese class I?? 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 Radicular pain of lower extremity?? Education Materials Below is the list of Educational Leaflet Providered with your Discharge Instructions. Surgery Voiding Instructions?? Surgery Medical Daystay Surgical Overnight Discharge Instructions?? Valuables and Belongings I fully understand and agree that [facility] accepts no responsibility for all my personal property including clothing, toilet articles, radios, jewelry, dentures, hearing aids, rings, money, or any other property that is in my possession or is brought to me after admission. I understand certain valuables may be placed in a hospital safe for a short period of time. I understand that the hospital is not liable for loss or damage due to accident, fire, or other natural occurrence while said property is in the safe. I accept full responsibility for any personal property that I keep with me, and will not hold the hospital responsible in case of loss or disappearance. I acknowledge that i have been encouraged to send valuables and belongings home. ?? Date for Pt to Sign Valuables/Belongings: 05/31/22 09:18:00 ?? Valuables & Belongings ?? Clothes Electronic devices Jewelry Monetary Items Personal devices Miscellaneous Medications (Valuables) Valuables at Bedside Jacket, Pants, Shirt, Shoes, Undergarments, Other: cane, rollater walker, dentures, life alert necklace ? Valuables Sent Home ? Valuables Sent to Security ? Other Discharge Information ? Pulmonary Rehab Status?? Pulmonary Rehab Discharge Status?? Respiratory Rate: 16 br/min ? Common Emergency Awareness Tips IS IT A STROKE? Act FAST and Check for these signs: FACE Does the face look uneven? ARM Does one arm drift down? SPEECH Does their speech sound strange? TIME Call at any sign of stroke ?? Heart Attack Signs Chest discomfort: Most heart attacks involve discomfort in the center of the chest and lasts more than a few minutes, or goes away and comes back. It can feel like uncomfortable pressure, squeezing, fullness or pain. Discomfort in upper body: Symptoms can include pain or discomfort in one or both arms, back, neck, jaw or stomach. Shortness of breath: With or without discomfort. Other signs: Breaking out in a cold sweat, nausea, or lightheaded. Remember, MINUTES DO MATTER. If you experience any of these heart attack warning signs, call to get immediate medical attention! ?? Smoking can increase your chances of developing chronic health problems and can cause harmful effects to other family members in your house. If you smoke, you are strongly encouraged to quit. Please call [facility] at [phone] or [phone] ([phone]) or log in to [email or web address] for referrals to smoking cessation programs. ?? The National Suicide Prevention Hotline is available 03/12 if you or someone you know needs to find areason to keep living. By calling 2-419-676[employer] (7021) you'll be connected to a skilled, trained counselor at a crisis center in your area. INPATIENT DISCHARGE INSTRUCTIONS SIGNATURE SARAH BETH SCHWARTZ Location:[facility] Registration Date and Time:05/31/2022 07:35 EST Primary Care Physician: Dona Lopez MD, Jules, I SARAH BETH ARAUJO, have received the above patient education materials/instructions and have verbalized understanding. If ambulance or transport services are being used I further acknowledge being given a choice of service. ?? If you need to contact me, please call me at this number: . Patient/Engineering Research Manager Name: Patient/Engineering Research Manager Signature: Relationship to Patient: Witness Name/Signature: Date: Rajan Horowitz DO: PERFORM, SIGN, VERIFY Event Display: Patient Education/Instruction Authored Date: [id number] Patient: SARAH BETH ARAUJO Age: 61 years Sex: Male : 1960 Associated Diagnoses: None Author: Rajan Horowitz DO Post-op discharge instruction for spinal cord stimulator placement. Medications -Complete your antibiotic course Keflex (Cephalexin) 500mg BID for 3 days Wound care -Keep your incision dry and clean. -If you notice drainage, redness, swelling or increased pain at the incision, call the pain clinic. Showering -You may shower when the wound has been clean and dry for 24 hours. Do don???t scrub the incision orsoap it. Just let water run over it. -Make sure you pat the incision completely dry after showering. Be gentle ??? do not scrub the incision. -Do not immerse the incision in a pool or bath until 6 weeks after surgery Activities -Walking is the best activity. Walk as much as you like. It is good for you and it will help you recover more quickly. -AVOID the BLTs: Bending, lifting, and twisting of your lower back. Follow up -You are scheduled for post-op visit at the pain clinic on 06/08/22 at 7:10 AM Lu Fisher RN: PERFORM Event Display: Patient Education Leaflets Authored Date: Surgery Voiding Instructions ?? 305 Home Voiding Instructions ?? You should pass urine 6-8 hours after you are discharged from the [facility]. The amount should be about one cup of urine with each voiding. Be aware that you should feel like you are emptying your bladder completely. If you are passing very small amounts of urine frequently it could be over-flow and you may not be emptying your bladder. Things to try to encourage urination: Drink warm coffee or tea ??? unless your physician told you not to. Blow bubble through your straw into a small glass of water. Trickle lukewarm water onto your private area. Walk around as much as able. Let the faucet run slowly. Put your hand in warm water. Try to relax. If you have any concerns about urination, in the above time frame after your discharge, you should call your Doctor. ?Phillip NOEL, Lu Murphy: PERFORM Event Display: Patient Education Leaflets Authored Date: Surgery Medical Daystay Surgical Overnight Discharge Instructions ?? 295 Medical Daystay/Surgical Overnight Discharge Instructions ? Since your coordination and judgment may be altered by medication and/or anesthesia, a responsible adult must drive you home from the hospital. ? If you have received medication for pain or sedation while under our care, you should not drive, operate machinery, drink alcohol, or sign any legal documents for 24 hours.?? You should have someone with you at home tonight. ? Remain at home the day of discharge.?? You may be up and about unless otherwise instructed by your physician. ? You may resume your daily prescription medication schedule.?? Any depressant medication should be avoided for 24 hours unless otherwise instructed by your surgeon or anesthesiologist. ? Call your physician for a follow-up appointment.? If you experience unusual or severe pain not relied by your pain medication, excessive bleedingor drainage, persistent nausea and vomiting, excessive swelling or redness, foul odor from incision site or fever over 100.6F, you need to call your physician. ? A follow-up phone call by a nurse will be made the day after your procedure.?? If you have stayed with us over night, you will not be receiving a follow-up phone call. ? Nausea and vomiting are a common side effect of prescription pain medication.?? We recommend that pills are not taken on an empty stomach.?? While taking any prescription pain medication you should not drive or drink alcohol. ?[facility] , CIS S: TRANSCRIBE Mateo Glasgow MD: VERIFY Event Display: Result: Authored Date: [id number] C-Arm > 1 Hour INDICATION: Reason: spinal stimulator implantation; TT: 1 hr 50 min FT: 1 min 2sec COMPARISONS: None TECHNIQUE: Fluoroscopy support was provided. There was no radiologist in attendance. FLUOROSCOPY TIME: 1 minute, 27.8 seconds TECHNOLOGIST TIME: 1 hour, 50 minutes FINDINGS: Fluoroscopy support was provided. There was no radiologist in attendance. IMPRESSION: See above. WSN: [id number] Ordering Physician: Francesco Farley Dictated By: Mateo Glasgow MD Dictated Date/Time: 05/31/22 5:06 pm Reviewed By: Mateo Glasgow MD Signed By: Mateo Glasgow MD Signed Date/Time: 05/31/22 5:06 pm Transcribed By: LESLEY Transcribed Date/Time: 05/31/22 4:32 pm Patient Care team information Care Team PersonnelName: Pretty Kaba RN Position: S RN Member Role: Primary Care Nurse Name: Heather Dorado RN Position: [facility] RN Member Role: Primary Care Nurse Name: Jules Escalona MD Position: [facility] Outreach Member Role: PCP Address: Address: [address] [place] [address] [place] Name: Arlene Edmondson RN Position: [facility] RN Member Role: Primary Care Nurse Name: Neva Gomez RN Position: S RN Member Role: Primary Care Nurse Name: Jason Santamaria RN Position: [facility] RN Member Role: Primary Care Nurse Name: Trinidad Drew RN Position: [facility] ED RN W/OE and Tasks Member Role: Primary Care Nurse Name: Radha Abad RN Position: [facility] RN Member Role: Primary Care Nurse Name: Grace Llamas RN Position: [facility] RN Member Role: Primary Care Nurse Name: Michael Lowry RN Position: [facility] RN Member Role: Primary Care Nurse Name: Pavithra Luis NP Position: Reference Physician Member Role: Primary Care Nurse Address: Address: [address] [place] [address] [place] Name: Celine Sales RN Position: [facility] RN Member Role: Primary Care Nurse Name: Lisa Iqbal RN Position: [facility] SN RN Member Role: Primary Care Nurse Care Team Related PersonsName: ISAC WARD Address: home [address] [place] [address]
--- OUTSIDE RECORDS SUMMARY | 2022-08-01 17:37 | XMS_ITS | Continuity of Care Document ---
:1960 Author Organization [facility] Address [address] [place] [address]- Care Team Providers Name Role Phone Dona Lopez MD, Jules Primary Care Physician [phone] [place] [facility] [place](s): 06/12/22 - 07/12/22 [facility] [address] [place] [address]- Allergies, Adverse Reactions, Alerts Substance Reaction Severity [...] Refills, Maintenance, Tablet, Route to Pharmacy Electronically, [id number], [facility] Start Date: 10/31/17 Stop [...] Confirmed Active Obese class I Confirmed Active *[facility] [phone] 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 Failed back Confirmed Active surgical syndrome Radicular pain of Confirmed Active lower extremity 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 1Oswestry Disability Index:pain scale: 24% moderate disability on initial Oswestry Disability Index: 64% ( crippled ) on 02/04/15; initial Neck Disability Index: 66% on 02/04/15; initial [place] Back Pain Scale: 83 on 02/04/15; initial [place]: 12 on SOAPP-R: 14 on 02/04/15 Social History Social History Type Response 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 Patient Care team information Care Team PersonnelName: Pretty Kaba RN Position: S RN Member Role: Primary Care Nurse Name: Heather Dorado RN Position: [facility] RN Member Role: Primary Care Nurse Name: Jules Escalona MD Position: S Outreach Member Role: PCP Address: Address: [address] [place] [address]- [place] Name: Arlene Edmondson RN Position: S RN Member Role: Primary Care Nurse Name: Neva Gomez RN Position: S RN Member Role: Primary Care Nurse Name: Jason Santamaria RN Position: [facility] RN Member Role: Primary Care Nurse Name: Trinidad Drew RN Position: [facility] ED RN W/OE and Tasks Member Role: Primary Care Nurse Name: Radha Abad RN Position: [facility] RN Member Role: Primary Care Nurse Name: Grace Llamas RN Position: [facility] RN Member Role: Primary Care Nurse Name: Michael Lowry RN Position: [facility] RN Member Role: Primary Care Nurse Name: Pavithra Luis NP Position: Reference Physician Member Role: Primary Care Nurse Address: Address: [address] [place] [address]- [place] Name: Celine Sales RN Position: [facility] RN Member Role: Primary Care Nurse Name: Lisa Iqbal RN Position: [facility] SN RN Member Role: Primary Care Nurse Care Team Related PersonsName: ISAC WARD Address: home [address] [place] [address]
--- OUTSIDE RECORDS SUMMARY | 2022-08-01 17:37 | XMS_ITS | Continuity of Care Document ---
:1960 Author Organization [facility] Address [address] [place] [address]- Care Team Providers Name Role Phone Not on Staff, PCP Primary Care Physician Unavailable Encounter [facility] Date(s): 08/25/21 - 08/25/[address] [address]- Encounter Diagnosis Chest pain (Final) - 08/25/21 Discharge Disposition: A-D/C Home Attending Physician: Carlos Calderon MD Admitting Physician: Carlos Calderon MD Referring Physician: Not on Staff, Referring [...] Refills, Maintenance, Tablet, Route to Pharmacy Electronically, [id number], [facility] Start Date: 10/31/17 Stop [...] back pain(Confirmed) Active Obese class I(Confirmed) Active *[facility] [phone] 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) Radicular pain of lower Active extremity(Confirmed) 1initial Oswestry Disability Index: 64% ( crippled ) on 02/04/15; initial Neck Disability Index: 66% on 02/04/15; initial [place] Back Pain Scale: 83 on 02/04/15; initial [place]: 12 on SOAPP-R: 14 on 02/04/15 Results Radiology Reports Exam Date Time Procedure Performing Provider Status 08/25/21 2:56 PM Chest 2 Views Frontal and Lat Lucie Ch; Rashid (Verified) Notes:(Chest 2 Views Frontal and Lat) Reason For Exam: Chest Pain;Other:RESULT: Chest 2 Views Frontal and Lat Chest 2 Views Frontal and Lat Reason: Other:; Chest Pain; Clinical Question(s): Other: COMPARISON: Chest radiograph 09/20/2020 FINDINGS: LINES AND TUBES: None. LUNGS AND PLEURA: Clear lungs. Normal pulmonary vascularity. No pleural effusion. No pneumothorax. HEART, MEDIASTINUM AND CRISTINA: Heart is normal in size. Normal upper mediastinal and hilar contour. BONES AND SOFT TISSUES: No acute abnormality. IMPRESSION: No acute abnormality. WSN: [id number] Ordering Physician: Elio Rock Dictated By: Rosita Bernard MD Dictated Date/Time: 08/25/21 3:02 pm Reviewed By: Rosita Bernard MD Signed By: Rosita Bernard MD Signed Date/Time: 08/25/21 3:02 pm Transcribed By: LESLEY Transcribed Date/Time: 08/25/21 3:01 pm Vital Signs Most recent to oldest 1 2 3 [Reference Range]: Height 163 cm (08/25/21 3:18 PM) Weight 79.5 kg (08/25/21 3:18 PM) Oxygen Saturation [94-100 %] 99 % 97 % 96 % (08/25/21 8:55 PM) (08/25/21 8:08 PM) (08/25/21 7:0 8 PM) Pulse Rate [55-90 bpm] 99 bpm 88 bpm 87 bpm *H* (08/25/21 8:08 PM) (08/25/21 7:08 PM) (08/25/21 8:55 PM) Blood Pressure [90-138/55-84 mm 110/88 mm Hg 107/90 mm Hg 129/83 mm Hg Hg] (08/25/21 8:55 PM) (08/25/21 8:08 PM) (08/25/21 7:0 8 PM) Respiratory Rate [16-30 br/min] 15 br/min 18 br/min 13 br/min *L* (08/25/21 8:08 PM) *L* (08/25/21 8:55 PM) (08/25/21 7:08 PM) Temperature [96.8-100.4 DegF] 98.4 DegF 98.6 DegF 98 .2 DegF (08/25/21 8:08 PM) (08/25/21 5:54 PM) (08/25/21 5:0 8 PM) Mode of Delivery (Oxygen) Room air Room air Room a ir (08/25/21 8:55 PM) (08/25/21 8:08 PM) (08/25/21 7:0 8 PM) Blood pressure sites Arm, left Arm, left Arm, left (08/25/21 8:55 PM) (08/25/21 8:08 PM) (08/25/21 7:0 8 PM) Temperature Route Oral Oral Oral (08/25/21 8:08 PM) (08/25/21 5:54 PM) (08/25/21 5:0 8 PM) Social History Social History Type Response 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
--- OUTSIDE RECORDS SUMMARY | 2022-08-01 17:37 | XMS_ITS | Continuity of Care Document ---
:1960 Author Organization [facility] Address [address] [place] [address]- Care Team Providers Name Role Phone Doan Lopez MD, Jules Primary Care Physician Encounter [facility] Date(s): 10/23/21 - 11/22/21 [facility] [address] [place] [address]- [place] Allergies, Adverse Reactions, Alerts Substance Reaction [...] Refills, Maintenance, Tablet, Route to Pharmacy Electronically, [id number], [facility] Start Date: 10/31/17 Stop [...] back pain(Confirmed) Active Obese class I(Confirmed) Active *[facility] [phone] 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
--- OUTSIDE RECORDS SUMMARY | 2022-08-01 17:37 | XMS_ITS | Continuity of Care Document ---
:1960 Author Organization [facility] Address [address] [place] [address]- Care Team Providers Name Role Phone Not on Staff, PCP Primary Care Physician Unavailable [place] [facility] [place](s): 07/06/20 - 08/05/20 [facility] [address] [place] [address] Allergies, Adverse Reactions, Alerts Substance [...] 0 Refills, Maintenance, 11/27/19 16:44:00 EDT, [facility]pension, [id number], 10 mL By Mouth 4 times a [...] Refills, Maintenance, Tablet, Route to Pharmacy Electronically, [id number], [facility] 3 Start Date: 10/31/17 Stop Date: 12/30/17 Status: Orderedcolchicine 0.6 mg oral tablet 0.6 mg, By Mouth, 2 times a day, Take for 3 months, # 60 tablet, Refills 0, Tot. 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
--- OUTSIDE RECORDS SUMMARY | 2022-08-01 17:37 | XMS_ITS | Continuity of Care Document ---
:1960 Author Organization [facility] Address [address] [place] [address]- Care Team Providers Name Role Phone Nelson LAWSON, Angie Shah Primary Care Physician Encounter [facility] [place] Date(s): 09/26/20 - 09/26/[address] [address]- Discharge Disposition: A-D/C Home Attending Physician: Jamie [...] Refills, Maintenance, Tablet, Route to Pharmacy Electronically, [id number], [facility] Start Date: 10/31/17 Stop [...] or Active counseling(Confirmed)2 Low back pain(Confirmed) Active *[facility] [phone] 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) Radicular pain of lower Active extremity(Confirmed) 1initial Oswestry Disability Index: 64% ( crippled ) on 02/04/15; initial Neck Disability Index: 66% on 02/04/15; initial [place] Back Pain Scale: 83 on 02/04/15; initial [place]: 12 on SOAPP-R: 14 on 02/04/15 Vital Signs Most recent to oldest [Reference Range]: 1 Height 162 cm (09/26/20 11:06 AM) Weight 83.7 kg (09/26/20 11:06 AM) Oxygen Saturation [94-100 %] 99 % (09/26/20 10:41 AM) Pulse Rate [55-90 bpm] 92 bpm *H* (09/26/20 10:41 AM) Blood Pressure [90-138/55-84 mm Hg] 124/80 mm Hg (09/26/20 10:41 AM) Respiratory Rate [16-30 br/min] 16 br/min (09/26/20 10:41 AM) Temperature [96.8-100.4 DegF] 98.3 DegF (09/26/20 10:41 AM) Mode of Delivery (Oxygen) Room air (09/26/20 10:41 AM) Blood pressure sites Arm, right (09/26/20 10:41 AM) Temperature Route Oral (09/26/20 10:41 AM) Dry Weight 83.7 kg (09/26/20 11:06 AM) Social History Social History Type Response 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
--- OUTSIDE RECORDS SUMMARY | 2022-08-01 17:38 | XMS_ITS | Continuity of Care Document ---
:1960 Author Organization [facility] Address [address] [place] [address]- Care Team Providers Name Role Phone Dona Lopez MD, Jules Primary Care Physician [phone] [place] [facility] [place](s): 03/20/22 - 04/19/22 [facility] [address] [place] [address] Attending Physician: Iván Kevin Admitting Physician: Iván [...] Refills, Maintenance, Tablet, Route to Pharmacy Electronically, [id number], [facility] Start Date: 10/31/17 Stop [...] mL, 0 Refills, Maintenance, 03/15/22 15:59:00 EDT, [id number], Partial fill upon patient request if the [...] Confirmed Active Obese class I Confirmed Active *[facility] [phone] Confirmed Active 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 Failed back Confirmed Active surgical syndrome Radicular pain of Confirmed Active lower extremity 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 1Oswestry Disability Index:pain scale: 24% moderate disability on initial Oswestry Disability Index: 64% ( crippled ) on 02/04/15; initial Neck Disability Index: 66% on 02/04/15; initial [place] Back Pain Scale: 83 on 02/04/15; initial [place]: 12 on SOAPP-R: 14 on 02/04/15 Social History Social History Type Response 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 Patient Care team information Care Team PersonnelName: Pretty Kaba RN Position: [facility] RN Member Role: Primary Care Nurse Name: Heather Dorado RN Position: [facility] RN Member Role: Primary Care Nurse Name: Jules Escalona MD Position: [facility] Outreach Member Role: PCP Address: Address: [address] [place] [address]- Name: Arlene Edmondson RN Position: [facility] RN Member Role: Primary Care Nurse Name: Neva Gomez RN Position: [facility] RN Member Role: Primary Care Nurse Name: Jason Santamaria RN Position: [facility] RN Member Role: Primary Care Nurse Name: Miguel Dodson RN Position: [facility] RN Member Role: Primary Care Nurse Name: Trinidad Drew RN Position: [facility] ED RN W/OE and Tasks Member Role: Primary Care Nurse Name: Radha Abad RN Position: [facility] RN Member Role: Primary Care Nurse Name: Grace Llamas RN Position: [facility] RN Member Role: Primary Care Nurse Name: Michael Lowry RN Position: [facility] RN Member Role: Primary Care Nurse Name: Pavithra Luis NP Position: Reference Physician Member Role: Primary Care Nurse Address: Address: [address] [place] [address]- [place] Name: Celine Sales RN Position: [facility] RN Member Role: Primary Care Nurse Name: Lisa Iqbal RN Position: [facility] RN Member Role: Primary Care Nurse Care Team Related PersonsName: ISAC WARD Address: [address] [address]
--- OUTSIDE RECORDS SUMMARY | 2022-08-01 17:38 | XMS_ITS | Continuity of Care Document ---
:1960 Author Organization [facility] Address [address] [place] [address]- Care Team Providers Name Role Phone Nelson LAWSON, Angie Shah Primary Care Physician Encounter [facility] [id number] Date(s): 10/31/20 - 11/30/20 [facility] [address] [place] [id number] Attending Physician: Iván Kevin Admitting Physician: AdmIván morales Referring Physician: AdmtrIván Allergies, Adverse Reactions, Alerts Substance Reaction Severity [...] Refills, Maintenance, Tablet, Route to Pharmacy Electronically, [id number], [facility] 3 Start Date: 10/31/17 Stop Date: 12/30/17 [...] 2:13:25 EDT Start Date: 07/21/18 Status: OrderedOmeprazole By Mouth, Daily, 0 Refills, Maintenance, 06/23/20 10:11:00 EST, Partial fill upon patient request ifthe prescription is for a schedule II opioid drug. 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
--- OUTSIDE RECORDS SUMMARY | 2022-08-01 17:38 | XMS_ITS | Continuity of Care Document ---
:1960 Author Organization [facility] Address [address] [place] [address]- Care Team Providers Name Role Phone Dona Lopez MD, Jules Primary Care Physician [id number] Date(s): 02/23/22 - 04/26/22 [facility] [address] [place] [address]- Attending Physician: Francesco Farley MD Admitting Physician: [...] Refills, Maintenance, Tablet, Route to Pharmacy Electronically, [id number], [facility] Start Date: 10/31/17 Stop [...] mL, 0 Refills, Maintenance, 03/15/22 15:59:00 EDT, [id number], Partial fill upon patient request if the [...] Confirmed Active Obese class I Confirmed Active *[facility] [phone] 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 Failed back Confirmed Active surgical syndrome Radicular pain of Confirmed Active lower extremity 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 1Oswestry Disability Index:pain scale: 24% moderate disability on initial Oswestry Disability Index: 64% ( crippled ) on 02/04/15; initial Neck Disability Index: 66% on 02/04/15; initial [place] Back Pain Scale: 83 on 02/04/15; initial [place]: 12 on SOAPP-R: 14 on 02/04/15 Social History Social History Type Response 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 Patient Care team information Care Team PersonnelName: Pretty Kaba RN Position: [facility] RN Member Role: Primary Care Nurse Name: Heather Dorado RN Position: [facility] RN Member Role: Primary Care Nurse Name: Jules Escalona MD Position: [facility] Outreach Member Role: PCP Address: Address: [address] [place] [address]- Name: Arlene Edmondson RN Position: [facility] RN Member Role: Primary Care Nurse Name: Neva Gomez RN Position: [facility] RN Member Role: Primary Care Nurse Name: Jason Santamaria RN Position: [facility] RN Member Role: Primary Care Nurse Name: Miguel Dodson RN Position: [facility] RN Member Role: Primary Care Nurse Name: Trinidad Drew RN Position: [facility] ED RN W/OE and Tasks Member Role: Primary Care Nurse Name: Radha Abad RN Position: [facility] RN Member Role: Primary Care Nurse Name: Grace Llamas RN Position: [facility] RN Member Role: Primary Care Nurse Name: Michael Lowry RN Position: [facility] RN Member Role: Primary Care Nurse Name: Pavithra Luis NP Position: Reference Physician Member Role: Primary Care Nurse Address: Address: [address] [place] [address]- [place] Name: Celine Sales RN Position: [facility] RN Member Role: Primary Care Nurse Name: Lisa Iqbal RN Position: [facility] RN Member Role: Primary Care Nurse Care Team Related PersonsName: ISAC WARD Address: [address] [address]
--- OUTSIDE RECORDS SUMMARY | 2022-08-01 17:38 | XMS_ITS | Continuity of Care Document ---
:1960 Author Organization [facility] Address [address] [place] [address]- Care Team Providers Name Role Phone Dona Lopez MD, Jules Primary Care Physician Encounter [facility] [place] Date(s): 09/27/21 - 12/06/21 [facility] [address] [place] [address]- Attending Physician: Neeru Gaspar MD Admitting Physician: Neeru Gaspar MD Allergies, Adverse Reactions, Alerts Substance Reaction [...] Refills, Maintenance, Tablet, Route to Pharmacy Electronically, [id number], [facility] Start Date: 10/31/17 Stop [...] back pain(Confirmed) Active Obese class I(Confirmed) Active *[facility] [phone] 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
--- OUTSIDE RECORDS SUMMARY | 2022-08-01 17:38 | XMS_ITS | Continuity of Care Document ---
:1960 Author Organization [facility] Address [address] [place] [address]- Care Team Providers Name Role Phone Not on Staff, PCP Primary Care Physician Unavailable Encounter [facility] [place] Date(s): 06/23/20 - 07/23/20 [facility] [address] [place] [address] Attending Physician: Iván Kevin Admitting Physician: [...] 0 Refills, Maintenance, 11/27/19 16:44:00 EDT, Suspension, [facility][id number], 10 mL By Mouth 4 times a [...] Refills, Maintenance, Tablet, Route to Pharmacy Electronically, [id number], [facility] 3 Start Date: 10/31/17 Stop Date: 12/30/17 Status: Orderedcolchicine 0.6 mg oral tablet 0.6 mg, By Mouth, 2 times a day, Take for 3 months, # 60 tablet, Refills 0, Tot. 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
--- OUTSIDE RECORDS SUMMARY | 2022-08-01 17:38 | XMS_ITS | Continuity of Care Document ---
:1960 Author Organization [facility] Address [address] [place] [address]- Care Team Providers Name Role Phone Nelson LAWSON, Angie Shah Primary Care Physician Encounter [facility] Date(s): 09/26/20 - 10/28/[address] [address]- Attending Physician: Jamie Cline MD Admitting Physician: [...] Refills, Maintenance, Tablet, Route to Pharmacy Electronically, [id number], [facility] 3 Start Date: 10/31/17 [...] cm, 05/25/19 13:18:00 EST, Height, 85.3, kg, 10/25/19 5:55:00 EDT, Dry Weight Start Date: 08/17/19 [...] counseling(Confirmed)2 Low back pain(Confirmed) Active *[facility] [phone] 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
--- OUTSIDE RECORDS SUMMARY | 2022-08-01 17:38 | XMS_ITS | Continuity of Care Document ---
:1960 Author Organization [facility] Address [address] [place] [address]- Care Team Providers Name Role Phone Hector MANAGER OF PMO, Krishna Beckman Primary Care Physician [phone] [place] [facility] [place] - 05/25/[address] [address]- [facility] Discharge Disposition: A-D/C Home Attending Physician: Jamie Rico MD Admitting Physician: Jamie Rico MD Referring Physician: Jamie Rico MD Allergies, Adverse Reactions, Alerts Substance Reaction [...] Refills, Maintenance, Tablet, Route to Pharmacy Electronically, [id number], [facility] 3 Start Date: 10/31/17 Stop Date: 12/30/17 Status: Orderedcolchicine 0.6 mg oral tablet 0.6 mg, By Mouth, 2 times a day, Take for 3 months, # 60 tablet, Refills 0, Tot. 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) Radicular pain of lower Active extremity(Confirmed) 1initial Oswestry Disability Index: 64% ( crippled ) on 02/04/15; initial Neck Disability Index: 66% on 02/04/15; initial [place] Back Pain Scale: 83 on 02/04/15; initial [place]: 12 on SOAPP-R: 14 on 02/04/15 Procedures Procedure Date Related Diagnosis Body Site Status Upper gastrointestinal endoscopy 05/25/19 Completed Vital Signs Most recent to oldest 1 2 3 [Reference Range]: Height 162.6 cm (05/25/19 1:18 PM) Weight 86.2 kg (05/25/19 1:18 PM) Oxygen Saturation [94-100 %] 99 % 97 % 99 % (05/25/19 3:20 PM) (05/25/19 3:05 PM) (05/25/19 1:1 8 PM) Pulse Rate [55-90 bpm] 75 bpm 71 bpm 75 bpm (05/25/19 3:20 PM) (05/25/19 3:05 PM) (05/25/19 1:1 8 PM) Body Mass Index [18.5-24.99] 32.6 *>HHI* (05/25/19 1:18 PM) Blood Pressure [90-138/55-84 mm 123/85 mm Hg 116/85 mm Hg 117/91 mm Hg Hg] (05/25/19 3:20 PM) (05/25/19 3:05 PM) (05/25/19 1:1 8 PM) Respiratory Rate [16-30 br/min] 16 br/min 16 br/min 16 br/min (05/25/19 3:20 PM) (05/25/19 3:05 PM) (05/25/19 1:1 8 PM) Temperature [96.8-100.4 DegF] 97.9 DegF (05/25/19 1:18 PM) Mode of Delivery (Oxygen) Room air Room air Room a ir (05/25/19 3:20 PM) (05/25/19 3:05 PM) (05/25/19 1:1 8 PM) Social History Social History Type Response 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
--- OUTSIDE RECORDS SUMMARY | 2022-08-01 17:38 | XMS_ITS | Continuity of Care Document ---
:1960 Author Organization [facility] Address [address] [place] [address]- Care Team Providers Name Role Phone Nelson LAWSON, Angie Shah Primary Care Physician Encounter [facility] Date(s): 01/27/21 - 02/26/21 [facility] [address] [place] [id number] Allergies, Adverse Reactions, Alerts [...] Refills, Maintenance, Tablet, Route to Pharmacy Electronically, [id number], [facility] 3 Start Date: 10/31/17 Stop [...] 07/21/18 2:13:25 EDT Start Date: 07/21/18 Status: OrderedtraZODone 150 [...] Low back pain(Confirmed) Active *[facility] [phone] 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
--- OUTSIDE RECORDS SUMMARY | 2022-08-01 17:38 | XMS_ITS | Continuity of Care Document ---
:1960 Author Organization [facility] Address [address] [place] [address]- Care Team Providers Name Role Phone Dona Lopez MD, Jules Primary Care Physician [phone] Encounter [facility] [place] Date(s): 03/19/22 - 04/18/22 [facility] [address] [place] [address] Allergies, Adverse Reactions, Alerts Substance Reaction Severity [...] Refills, Maintenance, Tablet, Route to Pharmacy Electronically, [id number], [facility] 3 Start Date: 10/31/17 Stop Date: [...] mL, 0 Refills, Maintenance, 03/15/22 15:59:00 EDT, [id number], Partial fill upon patient request if the [...] Confirmed Active Obese class I Confirmed Active *[facility] [phone] 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 Failed back Confirmed Active surgical syndrome Radicular pain of Confirmed Active lower extremity 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 1Oswestry Disability Index:pain scale: 24% moderate disability on initial Oswestry Disability Index: 64% ( crippled ) on 02/04/15; initial Neck Disability Index: 66% on 02/04/15; initial [place] Back Pain Scale: 83 on 02/04/15; initial [place]: 12 on SOAPP-R: 14 on 02/04/15 Social History Social History Type Response 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 Patient Care team information Care Team PersonnelName: Pretty Kaba RN Position: [facility] RN Member Role: Primary Care Nurse Name: Heather Dorado RN Position: S RN Member Role: Primary Care Nurse Name: Jules Escalona MD Position: [facility] Outreach Member Role: PCP Address: Address: [address] [place] [address]- Name: Arlene Edmondson RN Position: [facility] RN Member Role: Primary Care Nurse Name: Neva Gomez RN Position: [facility] RN Member Role: Primary Care Nurse Name: Jason Santamaria RN Position: [facility] RN Member Role: Primary Care Nurse Name: Miguel Dodson RN Position: [facility] RN Member Role: Primary Care Nurse Name: Trinidad Drew RN Position: [facility] ED RN W/OE and Tasks Member Role: Primary Care Nurse Name: Radha Abad RN Position: [facility] RN Member Role: Primary Care Nurse Name: Grace Llamas RN Position: [facility] RN Member Role: Primary Care Nurse Name: Michael Lowry RN Position: [facility] RN Member Role: Primary Care Nurse Name: Pavithra Luis NP Position: Reference Physician Member Role: Primary Care Nurse Address: Address: [address] [place] [address]- [place] Name: Celine Sales RN Position: S RN Member Role: Primary Care Nurse Name: Lisa Iqbal RN Position: [facility] SN RN Member Role: Primary Care Nurse Care Team Related PersonsName: ISAC WARD Address: home [address] [place] [address]
--- OUTSIDE RECORDS SUMMARY | 2022-08-01 17:38 | XMS_ITS ---
:1960 External Reference #:[id number] Author Care Team Providers Name Role Phone [facility] Referring Provider [phone] [facility] Referring Provider [phone] Allergies None recorded. Medications Name Status Start Date Stop Date ? ? amitriptyline 10 mg tablet Active ? Not a vailable amitriptyline 25 mg tablet Active ? Not a vailable amitriptyline 50 mg tablet Active ? Not a vailable amoxicillin 500 mg capsule Active ? Not a vailable TAKE 1 CAPSULE BY MOUTH EVERY 8 HOURS Aspercreme (lidocaine HCl) 4 % topical Active ? Not available apply pea sized amount to affected area up to three times daily atorvastatin 20 mg tablet Active ? Not av ailable TAKE 1 TABLET BY MOUTH EVERY DAY cetirizine 10 mg tablet Active ? Not avai lable TAKE 1 TABLET BY MOUTH EVERY DAY cyclobenzaprine 10 mg tablet Active ? Not available TAKE 1 TABLET BY MOUTH TWICE DAILY cyclobenzaprine 5 mg tablet Active ? Not available TAKE 1 TABLET BY MOUTH THREE TIMES DAILY FOR 7 DAYS A S NEEDED FOR MUSCLE SPASM diclofenac 1 % topical gel Active ? Not a vailable APPLY 2 GRAMS TO THE AFFECTED AREA(S) BY TOPICAL ROUTE 4 TIMES PER DAY dicyclomine 20 mg tablet Active ? Not charles ilable TAKE 1 TABLET BY MOUTH THREE TIMES DAILY famotidine 20 mg tablet Active ? Not avai lable TAKE 1 TABLET BY MOUTH EVERY DAY famotidine 40 mg tablet Active ? Not avai lable fluoxetine 40 mg capsule Active ? Not charles ilable fluticasone propionate 50 mcg/actuation nasal Active ? Not available spray,suspension gabapentin 800 mg tablet Active ? Not charles ilable TAKE 1 TABLET BY MOUTH THREE TIMES DAILY ibuprofen 600 mg tablet Active ? Not avai lable TAKE 1 TABLET BY MOUTH THREE TIMES DAILY WITH FOOD NEEDED ketorolac 30 mg/mL injection solution Active ? Not available 30mg IM x1 dose Mapap Arthritis Pain 650 mg tablet,extended release Active ? Not available metronidazole 250 mg tablet Active ? Not available TAKE 1 TABLET BY MOUTH THREE TIMES DAILY FOR 7 DAYS mirtazapine 7.5 mg tablet Active ? Not av ailable omeprazole 40 mg capsule,delayed release Active ? Not available ondansetron 4 mg disintegrating tablet Active ? Not available Place 1 tablet by translingual route. oxycodone 5 mg tablet Active ? Not availa ble TAKE 1 TABLET BY MOUTH EVERY 6 HOURS NEEDED FOR PAIN prednisone 20 mg tablet Active ? Not avai lable TAKE 2 TABLETS BY MOUTH DAILY FOR 5 DAYS tramadol 50 mg tablet Active ? Not availa ble TAKE 1 TABLET BY MOUTH EVERY 12 HOURS trazodone 150 mg tablet Active ? Not avai lable TAKE 1 TABLET BY MOUTH EVERY NIGHT AT BEDTIME AFTER A MEAL Problems None recorded. Procedures Date Name Performed by ? 09/29/2021 Electrocardiogram Main - [facility] [address] [place] [address] 0 (Work Place) 01/10/2022 Electrocardiogram Main - [facility] [address] [place] [address] 0 (Work Place) Results Lab Results None recorded. Past Encounters Encounter Date Diagnosis Provider 02/01/2022 Musculoskeletal Pain Deanne Rod MD: [address] [place] [address] 0, Ph. 01/10/2022 Chest Pain Antonio Dove MD: [address] [place] [address], Ph. [phone] 09/29/2021 Chest Pain Antonio Dove MD: [address] [place] [address], Ph. [phone] 07/13/2021 Dry Cough Noah Forbes MD: [address] [place] [address], Ph. [phone] Social History None recorded. Vaccine List None recorded. Plan of Care Reminders Provider Appointments None recorded. ? ? Lab None recorded. ? ? Referral None recorded. ? ? Procedures None recorded. ? ? Surgeries None recorded. ? ? Imaging None recorded. ? ? Vitals 02/01/2022 06:06PM Urgent Care Height Weight Blood Pressure 5 ft 4 in 180 lbs 119/81 mm[Hg] 01/10/2022 10:38AM Urgent Care Height Weight Blood Pressure (1) 5 ft 4 in (1) 175 lbs (1) 114/80 mm[Hg] (2) 5 ft 4 in (2) 175 lbs (2) 114/80 mm[Hg] 09/29/2021 02:49PM Urgent Care Blood Pressure 110/74 mm[Hg]
--- OUTSIDE RECORDS SUMMARY | 2022-08-01 17:38 | XMS_ITS | Continuity of Care Document ---
:1960 Author Organization [facility] Address [address] [place] [address]- Care Team Providers Name Role Phone Nelson LAWSON, Angie Shah Primary Care Physician Encounter [facility] [place] Date(s): 09/20/20 - 09/20/[address] [address]- Discharge Disposition: A-D/C Home Attending Physician: Jaron Brown MD Admitting Physician: Jaron Brown MD Referring Physician: Not on Staff, Referring [...] Refills, Maintenance, Tablet, Route to Pharmacy Electronically, [id number], [facility] 3 Start Date: 10/31/17 [...] Active counseling(Confirmed)2 Low back pain(Confirmed) Active *[facility] [phone] 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 History: Chest pain. Findings: Frontal and lateral views of the chest are compared to a prior study dated 05/14/2020. The cardiac and mediastinal silhouettes are within normal limits. The lungs are clear. The osseous and soft tissue structures are unremarkable. Impression: There is no acute cardiopulmonary disease. WSN: [id number] Ordering Physician: Barrera Lcuero MD Dictated By: Neva Cartwright MD Dictated Date/Time: 09/20/20 10:12 a Reviewed By: Neva Cartwright MD Signed By: Neva Cartwright MD Signed Date/Time: 09/20/20 10:12 am Transcribed By: LESLEY Transcribed Date/Time: 09/20/20 10:11 am Vital Signs Most recent to oldest 1 2 3 [Reference Range]: Oxygen Saturation [94-100 %] 100 % 100 % 100 % (09/20/20 11:45 AM) (09/20/20 8:59 AM) (09/20/20 8: 52 AM) Pulse Rate [55-90 bpm] 83 bpm 94 bpm 103 bpm (09/20/20 11:45 AM) *H* *H* (09/20/20 8:59 AM) (09/20/20 8:52 AM) Blood Pressure [90-138/55-84 117/94 mm Hg 128/81 mm Hg mm Hg] (09/20/20 11:45 AM) (09/20/20 8:59 AM) Respiratory Rate [16-30 18 br/min 16 br/min 20 br/mi n br/min] (09/20/20 11:45 AM) (09/20/20 8:59 AM) (09/20/20 8: 52 AM) Temperature [96.8-100.4 DegF] 98.0 DegF (09/20/20 8:59 AM) Liters per Minute 0 L/min (09/20/20 8:59 AM) Mode of Delivery (Oxygen) Room air Room air Room a ir (09/20/20 11:45 AM) (09/20/20 8:59 AM) (09/20/20 8: 52 AM) Temperature Route Oral (09/20/20 8:59 AM) Social History Social History Type Response 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
--- OUTSIDE RECORDS SUMMARY | 2022-08-01 17:38 | XMS_ITS | Continuity of Care Document ---
:1960 Author Organization [facility] Address [address] [place] [address]- Care Team Providers Name Role Phone Not on Staff, PCP Primary Care Physician Unavailable [place] [facility] [place] 10/17[place]19 - 02/14/20 [facility] [address] [place] [address] [facility] Attending Physician: Jamie Rico MD Admitting Physician: Jamie Rico MD Referring Physician: Hector FRIED CAKE MAKER, Krishna Beckman Allergies, Adverse Reactions, Alerts Substance Reaction Severity [...] 0 Refills, Maintenance, 11/27/19 16:44:00 EDT, Suspension, [id number], 10 mL By Mouth 4 times a [...] Refills, Maintenance, Tablet, Route to Pharmacy Electronically, [id number], [facility] 3 Start Date: 10/31/17 Stop Date: 12/30/17 Status: Orderedcolchicine 0.6 mg oral tablet 0.6 mg, By Mouth, 2 times a day, Take for 3 months, # 60 tablet, Refills 0, Tot. Refills 0, Maintenance, 12/11/17 16:42:02 EDT, Route to Pharmacy Electronically, [id number], 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
--- OUTSIDE RECORDS SUMMARY | 2022-08-01 17:38 | XMS_ITS | Continuity of Care Document ---
:1960 Author Organization [facility] Address [address] [place] [address]- Care Team Providers Name Role Phone Dona Lopez MD, Jules Primary Care Physician [id number] Date(s): 09/28/21 - 09/28/[address] [address]- Discharge Disposition: A-D/C Walkout Attending Physician: Not on Staff, Attending MD Admitting Physician: Not on Staff, Admitting MD Referring Physician: Not on Staff, Referring [...] Refills, Maintenance, Tablet, Route to Pharmacy Electronically, [id number], [facility] 3 Start Date: 10/31/17 [...] Active Obese class I(Confirmed) Active *[facility] [phone] 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) Failed back surgical Active syndrome(Confirmed) Radicular pain of lower Active extremity(Confirmed) 1initial Oswestry Disability Index: 64% ( crippled ) on 02/04/15; initial Neck Disability Index: 66% on 02/04/15; initial [place] Back Pain Scale: 83 on 02/04/15; initial [place]: 12 on SOAPP-R: 14 on 02/04/15 Vital Signs Most recent to oldest [Reference Range]: 1 Oxygen Saturation [94-100 %] 96 % (09/28/21 2:42 PM) Pulse Rate [55-90 bpm] 98 bpm *H* (09/28/21 2:42 PM) Blood Pressure [90-138/55-84 mm Hg] 102/71 mm Hg (09/28/21 2:42 PM) Respiratory Rate [16-30 br/min] 19 br/min (09/28/21 2:42 PM) Temperature [96.8-100.4 DegF] 98.7 DegF (09/28/21 2:42 PM) Liters per Minute 0 L/min (09/28/21 2:42 PM) Mode of Delivery (Oxygen) Room air (09/28/21 2:42 PM) Blood pressure sites Arm, right (09/28/21 2:42 PM) Temperature Route Oral (09/28/21 2:42 PM) Social History Social History Type Response 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
--- OUTSIDE RECORDS SUMMARY | 2022-08-01 17:38 | XMS_ITS | Continuity of Care Document ---
:1960 Author Organization [facility] Address [address] [place] [address]- Care Team Providers Name Role Phone Nelson LAWSON, Angie Shah Primary Care Physician Encounter [facility] [place] Date(s): 09/26/20 - 10/26/20 [facility] [address] [place] [address] Allergies, Adverse Reactions, Alerts Substance [...] Refills, Maintenance, Tablet, Route to Pharmacy Electronically, [id number], [facility] 3 Start Date: 10/31/17 Stop Date: 12/30/17 [...] back pain(Confirmed) Active *[facility] [phone] 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
--- OUTSIDE RECORDS SUMMARY | 2022-08-01 17:38 | XMS_ITS | Continuity of Care Document ---
:1960 Author Organization [facility] Address [address] [place] [address]- Care Team Providers Name Role Phone Not on Staff, PCP Primary Care Physician Unavailable Encounter [facility] Date(s): 11/27/19 - 11/27/[address] [address]- [facility] Discharge Disposition: A-D/C Home Attending Physician: Jacques LAWSON, Aria Barajas Admitting Physician: Jacques LAWSON, Aria Barajas Referring Physician: Not on Staff, Referring MD [...] 0 Refills, Maintenance, 11/27/19 16:44:00 EDT, Suspension, [id number], 10 mL By Mouth 4 times a [...] Refills, Maintenance, Tablet, Route to Pharmacy Electronically, [id number], [facility] 3 Start Date: 10/31/17 Stop Date: 12/30/17 Status: Orderedcolchicine 0.6 mg oral tablet 0.6 mg, By Mouth, 2 times a day, Take for 3 months, # 60 tablet, Refills 0, Tot. 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 COMPARISON: 11/07/2019 FINDINGS: LINES AND TUBES: None. LUNGS AND PLEURA: Clear lungs. Normal pulmonary vascularity. No pleural effusion. No pneumothorax. HEART, MEDIASTINUM AND CRISTINA: Heart is normal in size. Normal mediastinal and hilar contour. BONES AND SOFT TISSUES: No acute abnormality. Round high-density material projects over the left upper quadrant is likely outside the patient. IMPRESSION: No acute abnormality. WSN: [id number] Ordering Physician: Emma Devine Dictated By: Aleks Scales MD Dictated Date/Time: 11/27/19 3:31 pm Reviewed By: Aleks Scales MD Signed By: Aleks Scales MD Signed Date/Time: 11/27/19 3:31 pm Transcribed By: LESLEY Transcribed Date/Time: 11/27/19 3:30 pm Vital Signs Most recent to oldest 1 2 3 [Reference Range]: Height 163 cm 163 cm (11/27/19 4:18 PM) (11/27/19 2:25 PM) Weight 90 kg 90 kg (11/27/19 4:18 PM) (11/27/19 2:25 PM) Oxygen Saturation [94-100 %] 96 % 99 % 99 % (11/27/19 4:18 PM) (11/27/19 1:51 PM) (11/27/19 1:1 9 PM) Pulse Rate [55-90 bpm] 68 bpm 88 bpm 91 bpm (11/27/19 4:18 PM) (11/27/19 1:51 PM) *H* (11/27/19 1:19 PM ) Body Mass Index [18.5-24.99] 33.87 *>HHI* (11/27/19 4:18 PM) Blood Pressure [90-138/55-84 mm 135/86 mm Hg 122/77 mm Hg Hg] (11/27/19 4:18 PM) (11/27/19 1:51 PM) Respiratory Rate [16-30 br/min] 18 br/min 19 br/min (11/27/19 4:18 PM) (11/27/19 1:51 PM) Temperature [96.8-100.4 DegF] 98.0 DegF 98.3 DegF (11/27/19 4:18 PM) (11/27/19 1:51 PM) Mode of Delivery (Oxygen) Room air Room air (11/27/19 4:18 PM) (11/27/19 1:51 PM) Blood pressure sites Arm, right (11/27/19 4:18 PM) Temperature Route Oral Oral (11/27/19 4:18 PM) (11/27/19 1:51 PM) Dry Weight 90 kg 90 kg (11/27/19 4:18 PM) (11/27/19 2:25 PM) Social History Social History Type Response 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
--- OUTSIDE RECORDS SUMMARY | 2022-08-01 17:38 | XMS_ITS | Continuity of Care Document ---
:1960 Author Organization [facility] Address [address] [place] [id number]- Care Team Providers Name Role Phone Dona Lopez MD, Jules Primary Care Phys[id number] Date(s): [facility]25[facility] - [facility] [address] [place] [address]- Attending Physician: Tavon LAWSON, Terri Admitting Physician: Tavon LAWSON, Terri Allergies, Adverse Reactions, Alerts Substance Reaction Severity [...] Refills, Maintenance, Tablet, Route to Pharmacy Electronically, [id number], [facility] 3 Start Date: 10/31/17 [...] mL, 0 Refills, Maintenance, 03/15/22 15:59:00 EDT, [id number], Partial fill upon patient request if the [...] Active Obese class I Confirmed Active *[facility] [phone] 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 Active 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 Failed back Confirmed Active surgical syndrome Radicular pain of Confirmed Active lower extremity 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 1Oswestry Disability Index:pain scale: 24% moderate disability on initial Oswestry Disability Index: 64% ( crippled ) on 02/04/15; initial Neck Disability Index: 66% on 02/04/15; initial [place] Back Pain Scale: 83 on 02/04/15; initial [place]: 12 on SOAPP-R: 14 on 02/04/15 Social History Social History Type Response 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 Patient Care team information Care Team PersonnelName: Pretty Kaba RN Position: [facility] RN Member Role: Primary Care Nurse Name: Heather Dorado RN Position: [facility] RN Member Role: Primary Care Nurse Name: Jules Escalona MD Position: [facility] Outreach Member Role: PCP Address: Address: [address] [place] [id number]- Name: Arlene Edmondson RN Position: [facility] RN Member Role: Primary Care Nurse Name: Neva Gomez RN Position: [facility] RN Member Role: Primary Care Nurse Name: Jason Santamaria RN Position: [facility] RN Member Role: Primary Care Nurse Name: Miguel Dodson RN Position: [facility] RN Member Role: Primary Care Nurse Name: Trinidad Drew RN Position: [facility] ED RN W/OE and Tasks Member Role: Primary Care Nurse Name: Radha Abad RN Position: [facility] RN Member Role: Primary Care Nurse Name: Grace Llamas RN Position: [facility] RN Member Role: Primary Care Nurse Name: Michael Lowry RN Position: [facility] RN Member Role: Primary Care Nurse Name: Pavithra Lusi NP Position: Reference Physician Member Role: Primary Care Nurse Address: Address: [address] [place] [id number]- [place] Name: Celine Sales RN Position: [facility] RN Member Role: Primary Care Nurse Name: Lisa Iqbal RN Position: [facility] RN Member Role: Primary Care Nurse Care Team Related PersonsName: ISAC WARD Address: [address] [address]
--- OUTSIDE RECORDS SUMMARY | 2022-08-01 17:38 | XMS_ITS | Continuity of Care Document ---
:1960 Author Organization [facility] Address [address] [place] [address]- Care Team Providers Name Role Phone Not on Staff, PCP Primary Care Physician Unavailable Encounter [facility] Date(s): 10/12/19 - 12/09/19 [facility] [address] [place] [id number] Attending Physician: Jamie Rico MD Admitting Physician: Jamie Rico MD Referring Physician: Not on Staff, Referring [...] 0 Refills, Maintenance, 11/27/19 16:44:00 EDT, Suspension, [facility] #[id number], 10 mL By Mouth 4 times a [...] Refills, Maintenance, Tablet, Route to Pharmacy Electronically, [id number], [facility] 3 Start Date: 10/31/17 Stop Date: 12/30/17 Status: Orderedcolchicine 0.6 mg oral tablet 0.6 mg, By Mouth, 2 times a day, Take for 3 months, # 60 tablet, Refills 0, Tot. Refills 0, Maintenance, 12/11/17 16:42:02 EDT, Route to Pharmacy Electronically, [id number], 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
[2022-08-01 18:36] VITALS: BP 132/80; PULSE 69; RESP 15; TEMP 36.6; O2SAT 98
[2022-08-01 19:30] VITALS: BP 119/83; PULSE 69; RESP 18; O2SAT 97
[2022-08-01] MEDS: oxyCODONE HCl Immed Release 5 MG TABLET PO (19:31)
== END 2022-08-01 19:47 | disposition home or self-care (01) ==
PROVIDERS: Emergency Provider Internal Medicine
DX: R07.89 Other chest pain (principal); F41.9 Anxiety disorder, unspecified; Z79.899 Other long term (current) drug therapy; Z79.02 Long term (current) use of antithrombotics/antiplatelets
CPT/HCPCS: 36415; 71046; 80048; 84484; 85025; 93005; 99283; 99284

== ENCOUNTER 2022-08-13 18:52 | Emergency (ER) | payer OTHER, SELFPAY ==
--- NOTE | ~2022-08-13 | CT_ITS ---
EXAMINATION: CT ABDOMEN AND PELVIS WITHOUT CONTRAST CLINICAL INFORMATION: diffuse abd pain r/o perforated viscus. COMPARISON: 12/01/2021. TECHNIQUE: Multidetector volumetric imaging was performed from the superior aspect of the liver through the pubic symphysis without contrast per renal stone protocol. Sagittal and coronal reformatted images were obtained on the technologist workstation. This CT examination was performed using dose optimization techniques as appropriate, variously including the following: *Automated exposure control *Adjustment of mA and/or kV according to patient size (this includes techniques or standardized protocols for targeted exams where dose is matched to indication/reason for exam; i.e. extremities or head) *Use of iterative reconstruction technique DLP: 638 mGy-cm. FINDINGS: LUNG BASES: The visualized lung bases are unremarkable. Vascular calculation within the visualized coronary vessels. Small hiatal hernia again noted. LIVER, GALLBLADDER, BILIARY TREE: Mild diffuse fatty infiltration of the liver but no focal hepatic lesion nor biliary ductal dilatation. Mild focal fatty sparing adjacent to the gallbladder fossa. The gallbladder is contracted but otherwise unremarkable with no evidence of radiopaque gallstones, gallbladder wall thickening, or obvious pericholecystic inflammatory changes. PANCREAS: Unremarkable. SPLEEN: Unremarkable. ADRENAL GLANDS: Unremarkable. KIDNEYS AND URETERS: Multiple punctate bilateral intrarenal nonobstructing calculi are seen with distribution similar to prior study. There is no hydronephrosis or perinephric stranding. A few scattered cortical cysts are again seen bilaterally. There is no ureteric calculi. BLADDER: Unremarkable. GASTROINTESTINAL TRACT: A few scattered colonic diverticula are noted but no colonic wall thickening or pericolonic inflammatory change to suggest diverticulitis. Normal-appearing appendix in the right lower quadrant. Visualized small bowel unremarkable. Small hiatal hernia. ABDOMINAL WALL: No significant hernia is appreciated. LYMPHOVASCULAR STRUCTURES: Mild vascular calcification within the aorta iliac system. No bulky adenopathy.. PELVIC VISCERA: Unremarkable. OSSEUS STRUCTURES: Degenerative changes and postoperative changes in the lower lumbar spine. Spinal stimulator device and leads noted CT/CT abdomen pelvis wo IV con IMPRESSION: Chronic appearing changes similar to the 12/01/2021 study. I do not appreciate any acute intra-abdominal process.
--- NOTE | 2022-08-13 19:06 | ECG_ITS ---
Test Reason : CP Blood Pressure : / mmHG Vent. Rate : 080 BPM Atrial Rate : 080 BPM P-R Int : 212 ms QRS Dur : 084 ms QT Int : 358 ms P-R-T Axes : 057 -50 030 degrees QTc Int : 412 ms Sinus rhythm with 1st degree A-V block Left axis deviation Abnormal ECG When compared with ECG of 01-AUG-2022 13:43, No significant change was found Referred By: Dee Ojeda Electronically Signed By:Rory Menjivar
[2022-08-13 19:10] VITALS: BP 116/80; BP 124/85; PULSE 84; PULSE 85; RESP 20; TEMP 36.8; O2SAT 97; O2SAT 98; BMI 30.9
--- NOTE | 2022-08-13 19:44 | PHA.MEDREC ---
Confirmed medications with patient Pharmacy Consult ? Medication Reconciliation Pharmacy has completed the medication reconciliation.
[2022-08-13 20:04] LABS: MANUAL DIFF FLAG NO
[2022-08-13 20:05] LABS: Basophils Absolute Auto 0.1 X10*3/uL (0.0-0.2); Basophils Percent Auto 0.8 % (0-2); Eosinophils Absolute Auto 0.2 X10*3/uL (0.0-0.4); Eosinophils Percent Auto 1.6 % (0-4); Hematocrit 39.2 % (42.0-52.0); Imm Gran Abs Auto 0.03 X10*3/uL (0.00-0.03); Imm Gran Pct Auto 0.3 % (0.0-0.4); Lymphocytes Absolute Auto 3.1 X10*3/uL (1.2-4.9); Lymphocytes Percent Auto 33.5 % (20-40); Mean Corpuscular HGB Conc 35.7 g/dl (31.0-36.0); Mean Corpuscular Hemoglobin 33.3 pg (27.0-33.0); Mean Corpuscular Volume 93.1 fL (80.0-98.0); Mean Platelet Volume 10.1 fL (9.4-12.4); Monocytes Absolute Auto 0.8 X10*3/uL (0.1-1.2); Monocytes Percent Auto 8.6 % (2-11); Neutrophils Absolute Auto 5.1 x10*3/uL (2.0-8.3); Neutrophils Percent Auto 55.2 % (45-73); Platelet Count 280 X10*3/uL (160-400); Red Blood Count 4.21 X10*6/uL (4.60-5.80); Red Cell Distribution Width 12.4 % (11.0-16.0); White Blood Count 9.3 X10*3/uL (4.8-10.8)
--- NOTE | 2022-08-13 20:05 | ED_ITS ---
HPI - Chest Pain General Chief Complaint: Chest Pain Stated Complaint: CP,TINGLING IN FINGERS SINCE SATURDAY PER EMS Time Seen by Provider: 08/13/22 19:05 Source: patient, EMS and health care / medical job titles Mode of arrival: EMS Limitations: no limitations History of Present Illness HPI narrative: 61-year-old male Tajik speaking came in for evaluation of chest pain and abdominal pain. Patient with known history of anxiety, chronic chest pain had multiple ED visits for chest pain evaluation, came in today with diffuse chest pain radiating down to the left arm and also diffuse abdominal pain. Patient describes the pain as constant pain been worsening over the last week, pain is not associated with nausea or vomiting, no clear exacerbating factor or relieving factor. Patient was seen in the emergency department yesterday for similar symptoms. Related Data Home Medications Medication Instructions Recorded Confirmed dicyclomine 20 mg tablet 1 tab PO TID 04/20/20 08/13/22 fluoxetine 40 mg capsule 1 cap PO QAM 04/20/20 08/13/22 gabapentin 800 mg tablet 1 tab PO TID 04/20/20 08/13/22 trazodone 150 mg tablet 1 tab PO BEDTIME 04/20/20 08/13/22 simethicone 180 mg capsule (Gas 180 mg PO DAILY 09/20/21 08/13/22 Relief (simethicone)) atorvastatin 40 mg tablet 40 mg PO DAILY 08/13/22 08/13/22 Previous Rx's Medication Instructions Recorded oxycodone 5 mg tablet 5 mg PO Q6H PRN pain #4 tabs 08/13/22 Allergies Allergy/AdvReac Type Severity Reaction Status Date / Time phenytoin [From DILANTIN] Allergy Intermediate NAUSEA Verified 09/30/21 11:23 Benadryl Allergy Unknown restless Verified 09/30/21 11:23 leg syndrome, shaky buprenorphine [Belbuca] Allergy Unknown nausea Verified 09/30/21 11:23 tramadol [TRAMADOL] Allergy Unknown UNABLE TO Verified 09/30/21 11:23 SLEEP , AGITATION, restless leg syndrome dylantin Allergy Unknown Unknown Uncoded 09/20/21 09:20 From BENADRYL Allergy Unknown AGITATION Uncoded 09/20/21 09:20 Review of Systems Review of Systems: All other systems are reviewed and are negative Constitutional: Reports as per HPI and Reports no additional constitutional complaints Eyes: Reports as per HPI and Reports no additional eye complaints Reports system reviewed and no additional complaints, except as documented Cardiovascular: Reports as per HPI and Reports no additional cardiovascular complaints Respiratory: Reports as per HPI and Reports no additional respiratory complaints Gastrointestinal: Reports as per HPI and Reports no additional gastrointestinal complaints Genitourinary: Reports no additional female genitourinary complaints Musculoskeletal: Reports no additional musculoskeletal complaints Skin/Breast: Reports system reviewed and no additional complaints, except as docu Psychiatric: Reports no additional psychiatric complaints Endocrine: Reports no additional endocrine complaints Hematologic/Lymphatic: Reports no additional hematologic/lymphatic complaints Allergic/Immunologic: Reports no additional allergic/immunologic complaints Reports system reviewed and no additional complaints, except as documented and Reports Abnormal speech present [facility] Past Medical History Medical History Anxiety Chronic abdominal pain Chronic back pain Chronic pain Colon cancer screening Hyperlipidemia Social History Social History Alcohol intake: never Patient Tobacco Use Status: Never used Tobacco Second Hand Smoke Exposure: No Advance Directives: No Advance Directives Information Provided: No service: No Current occupational status: unemployed and disabled Current occupation: Right handed Physical Exam Vital Signs: Vital Signs: Last Vital Signs Temp 98.3 F 08/13/22 19:10 Pulse 84 08/13/22 19:10 Resp 20 08/13/22 19:10 BP 116/80 08/13/22 19:10 Pulse Ox 97 08/13/22 19:10 O2 Del Method Room Air 08/13/22 19:10 BMI result Body Mass Index 30.9 Vital signs have been reviewed as appeared to be correct. Blood pressure normal. Heart rate normal. Respiration rate normal. Temperature normal. Oxygen saturation normal. Appearance: Anxious, Alert. Oriented X3. No acute distress. Head: Normal external exam. Normocephalic. Atraumatic. No Serna signs noted. No raccoon eyes noted Eyes: PERRLA. EOMI. Conjunctiva and sclera normal. Eyelids normal. ENT: TM's Normal. Pharynx normal. Uvula midline. Moist mucous membranes. No trismus noted. No drooling noted. No muffled voice noted. Neck: Normal inspection. Neck supple. FROM. No adenopathy. Thyroid Normal. No meningeal signs. No neck mass noted. CVS: Normal heart rate and rhythm. Heart sound normal. No murmurs noted. Pulses normal throughout. Respiratory: No respiratory distress. Painless inspiration. Breath sounds normal. No wheezes/rales/rhonchi noted. Chest nontender. No accessory muscle usage noted or decreased air movement noted. Abdomen: Soft, diffuse tenderness, no guarding, no rebound tenderness.. Bowel sounds normal in all 4 quadrants. No distention noted. No organomegaly noted. No visible injury noted. Back: No CVA tenderness. Full range of motion noted. Skin: Skin warm and dry. Normal skin color. Normal skin turgor. No rashes/lesions/lacerations noted. Extremities: No lower extremity edema. Extremities exhibit normal range of motion. Extremities nontender. Neuro: Oriented X 3. Cranial nerve exam: II-XII are grossly intact No motor deficit. No sensory deficit. Reflexes normal. Course Course Course Narrative: 61-year-old male with history of chest/abdominal pain/anxiety unremarkable workup in the ED patient follow-up with pain management clinic. will discharge with oxycodone. Medications Administered Discontinued Medications Generic Name Dose Route Start Last Admin Trade Name Freq PRN Reason Stop Dose Admin Morphine Sulfate 2 mg 08/13/22 20:06 08/13/22 20:54 Morphine Sulfate 2 Mg/Ml Cartridge IVPUSH 08/13/22 20:07 2 mg ONCE ONE Administration Medical Decision Making Differential Diagnosis Differential Diagnoses: The differential diagnosis associated with the presentation includes (ACS, perforated viscus, appendicitis, colitis, anxiety) Admission/Observation Consideration of admission/observation: Escalation of care including admission/observation considered Lab Data MDM Lab Attestation statement: I reviewed the patient's lab results. 08/13/22 19:59 08/13/22 19:58 Labs: Lab Results 08/13/22 08/13/22 08/13/22 Range/Units 19:58 19:58 19:59 WBC 9.3 (4.8-10.8) X10*3/uL RBC 4.21 L (4.60-5.80) X10*6/uL Hgb 14.0 (14.0-18.0) g/dl Hct 39.2 L (42.0-52.0) % MCV 93.1 (80.0-98.0) fL MCH 33.3 H (27.0-33.0) pg MCHC 35.7 (31.0-36.0) g/dl RDW 12.4 (11.0-16.0) % Plt Count 280 (160-400) X10*3/uL MPV 10.1 (9.4-12.4) fL Immature Gran % (Auto) 0.3 (0.0-0.4) % Neut % (Auto) 55.2 (45-73) % Lymph % (Auto) 33.5 (20-40) % [place] % (Auto) 8.6 (2-11) % Eos % (Auto) 1.6 (0-4) % Baso % (Auto) 0.8 (0-2) % Lymph # (Auto) 3.1 (1.2-4.9) X10*3/uL [place] # (Auto) 0.8 (0.1-1.2) X10*3/uL Eos # (Auto) 0.2 (0.0-0.4) X10*3/uL Baso # (Auto) 0.1 (0.0-0.2) X10*3/uL Abs Immat Gran (auto) 0.03 (0.00-0.03) X10*3/uL Absolute Neuts (auto) 5.1 (2.0-8.3) x10*3/uL Absolute Nucleated RBC 0.000 (0.0-0.012) X10*3/uL Nucleated RBC % (auto) 0.0 (0.0-0.2) /100WBC Sodium 139 (135-145) mmol/L Potassium 3.8 (3.3-5.1) mmol/L Chloride 106 (96-108) mmol/L Carbon Dioxide 22 (22-29) mmol/L Anion Gap 15 (12-20) BUN 8 L (9-16) mg/dL Creatinine 1.08 (0.5-1.4) mg/dL Estim Creat Clear Calc 69.2 Estimated GFR > 60 Random Glucose 108 (60-115) mg/dL Lactic Acid (0.5-2.0) mmol/L Calcium 8.7 (8.4-10.2) mg/dL Total Bilirubin 0.3 (0.0-1.0) mg/dL Direct Bilirubin < 0.2 (0.0-0.5) mg/dL AST 32 (5-37) U/L ALT 35 (0-40) U/L Alkaline Phosphatase 77 (39-117) U/L Troponin I High Sens (<3.5-35.0) ng/L Total Protein 6.8 (6.5-8.0) g/dL Albumin 4.0 (3.5-5.0) g/dL Lipase 40 (8-78) U/L COVID-19 (AMAYA) Negative (Negative) COVID-19 Clin Com See Note 08/13/22 08/13/22 Range/Units 19:59 19:59 WBC (4.8-10.8) X10*3/uL RBC (4.60-5.80) X10*6/uL Hgb (14.0-18.0) g/dl Hct (42.0-52.0) % MCV (80.0-98.0) fL MCH (27.0-33.0) pg MCHC (31.0-36.0) g/dl RDW (11.0-16.0) % Plt Count (160-400) X10*3/uL MPV (9.4-12.4) fL Immature Gran % (Auto) (0.0-0.4) % Neut % (Auto) (45-73) % Lymph % (Auto) (20-40) % [place] % (Auto) (2-11) % Eos % (Auto) (0-4) % Baso % (Auto) (0-2) % Lymph # (Auto) (1.2-4.9) X10*3/uL [place] # (Auto) (0.1-1.2) X10*3/uL Eos # (Auto) (0.0-0.4) X10*3/uL Baso # (Auto) (0.0-0.2) X10*3/uL Abs Immat Gran (auto) (0.00-0.03) X10*3/uL Absolute Neuts (auto) (2.0-8.3) x10*3/uL Absolute Nucleated RBC (0.0-0.012) X10*3/uL Nucleated RBC % (auto) (0.0-0.2) /100WBC Sodium (135-145) mmol/L Potassium (3.3-5.1) mmol/L Chloride (96-108) mmol/L Carbon Dioxide (22-29) mmol/L Anion Gap (12-20) BUN (9-16) mg/dL Creatinine (0.5-1.4) mg/dL Estim Creat Clear Calc Estimated GFR Random Glucose (60-115) mg/dL Lactic Acid 1.4 (0.5-2.0) mmol/L Calcium (8.4-10.2) mg/dL Total Bilirubin (0.0-1.0) mg/dL Direct Bilirubin (0.0-0.5) mg/dL AST (5-37) U/L ALT (0-40) U/L Alkaline Phosphatase (39-117) U/L Troponin I High Sens < 3.5 (<3.5-35.0) ng/L Total Protein (6.5-8.0) g/dL Albumin (3.5-5.0) g/dL Lipase (8-78) U/L COVID-19 (AMAYA) (Negative) COVID-19 Clin Com Independent Interpretation I performed an independent interpretation of an: CT Scan (Abdomen: No acute intra-abdominal pathology.) Radiology Impression Discussion of test interpretation with radiology: I have reviewed the radiologist's reading. Discharge Plan Discharge Clinical Impression: Anxiety, Chronic abdominal pain, Atypical chest pain Patient Disposition: Home, Self-Care Instructions: Abdominal Pain (ED) Prescriptions: New oxycodone 5 mg tablet 5 mg PO Q6H PRN (Reason: pain) Qty: 4 0RF Rx Instructions: Partial Fill upon patient request. No Action fluoxetine 40 mg capsule 1 cap PO QAM gabapentin 800 mg tablet 1 tab PO TID dicyclomine 20 mg tablet 1 tab PO TID trazodone 150 mg tablet 1 tab PO BEDTIME atorvastatin 40 mg Tablet 40 mg PO DAILY simethicone [Gas Relief (simethicone)] 180 mg capsule 180 mg PO DAILY Referrals: Physician,Unknown J [Primary Care Provider] -
[2022-08-13 20:19] LABS: COVID-19 Test Negative (Negative); IDNOW Serial# BCCEAD1C
[2022-08-13 20:21] LABS: Lactic Acid 1.4 mmol/L (0.5-2.0)
[2022-08-13 20:44] LABS: Troponin-I High Sensitivity < 3.5 ng/L (<3.5-35.0)
[2022-08-13] MEDS: Morphine Sulfate 2 MG/ML CARTRIDGE IVPUSH (20:54)
[2022-08-13 21:01] LABS: Anion Gap 15 (12-20)
[2022-08-13 21:06] LABS: Alanine Aminotransferase 35 U/L (0-40); Alkaline Phosphatase 77 U/L (39-117); Aspartate Amino Transferase 32 U/L (5-37); Bilirubin Direct < 0.2 mg/dL (0.0-0.5); Bilirubin Total 0.3 mg/dL (0.0-1.0); Blood Urea Nitrogen 8 mg/dL (9-16); Calcium 8.7 mg/dL (8.4-10.2); Carbon Dioxide 22 mmol/L (22-29); Chloride 106 mmol/L (96-108); Creatinine Clr Calc Pharmacy 69.2; Estimated Glomerular Filt Rate > 60; Glucose Random 108 mg/dL (60-115); Lipase 40 U/L (8-78); Potassium 3.8 mmol/L (3.3-5.1); Sodium 139 mmol/L (135-145); Total Protein 6.8 g/dL (6.5-8.0)
[2022-08-13 22:18] LABS: B Type Natriuretic Peptide < 10 pg/mL (<100)
[2022-08-13 22:28] VITALS: BP 123/76; PULSE 76; RESP 20; TEMP 36.6; O2SAT 98
== END 2022-08-13 22:30 | disposition home or self-care (01) ==
PROVIDERS: Emergency Provider Emergency Medicine
DX: R07.89 Other chest pain (principal); F41.9 Anxiety disorder, unspecified; F43.0 Acute stress reaction; R10.9 Unspecified abdominal pain; R06.02 Shortness of breath; Z20.822 Contact with and (suspected) exposure to COVID-19; Z20.828 Contact with and (suspected) exposure to other viral communicable diseases; Z79.899 Other long term (current) drug therapy
CPT/HCPCS: 36415; 74176; 80048; 80076; 83605; 83690; 83880; 84484; 85025; 87635; 93005; 96374; 99283; 99284; J2270

== ENCOUNTER 2023-01-27 07:42 | Emergency (ER) | payer OTHER, SELFPAY ==
--- NOTE | ~2023-01-27 | CT_ITS ---
EXAMINATION: CT ABDOMEN AND PELVIS WITHOUT CONTRAST CLINICAL INFORMATION: Flank pain, dysuria, hematuria. COMPARISON: CT abdomen 08/13/2022. TECHNIQUE: Multidetector volumetric imaging was performed from the superior aspect of the liver through the pubic symphysis. Sagittal and coronal reformatted images were obtained on the technologist's workstation. This CT examination was performed using dose optimization techniques as appropriate, variously including the following: *Automated exposure control *Adjustment of mA and/or kV according to patient size (this includes techniques or standardized protocols for targeted exams where dose is matched to indication/reason for exam; i.e. extremities or head) *Use of iterative reconstruction technique DLP: 641 mGy-cm FINDINGS: LUNG BASES: Mild dependent changes/atelectasis in the posterior aspect of bilateral lower lungs. LIVER, GALLBLADDER, AND BILIARY TREE: Slightly low attenuation of the spleen, suggesting hepatic steatosis. No focal liver lesions. No biliary duct dilatation. The gallbladder is unremarkable with no evidence of radiopaque gallstones, gallbladder wall thickening, or obvious pericholecystic inflammatory changes. PANCREAS: Unremarkable. No acute inflammatory changes. SPLEEN: Unremarkable. ADRENAL GLANDS: Unremarkable. KIDNEYS AND URETERS: Redemonstrated are small nonobstructing right renal calculi, measuring 2-3 mm in the mid pole. 2 mm nonobstructing calculus in the upper pole left kidney. Redemonstrated is a fluid attenuation cyst in the lower pole left kidney, for which no followup is indicated. Mild bilateral perinephric stranding. No evidence of hydroureteronephrosis or radiopaque intraluminal ureteral calculi. BLADDER: The bladder is partially distended. The bladder wall appears thickened, which may be related to lack of distention versus other etiologies such as cystitis. GASTROINTESTINAL TRACT: Small and large colon is nondilated. There is moderate stool in the large colon. There is colonic diverticulosis without evidence of wall thickening or significant pericolonic inflammatory changes to suggest definite diverticulitis. The stomach is partially distended. Appendix appears unremarkable. No free fluid. No free air. ABDOMINAL WALL: Small fat-containing bilateral inguinal hernias. LYMPH NODES: No pathologically enlarged lymph nodes seen. VASCULAR: Normal caliber aorta. PELVIC VISCERA: Unremarkable. OSSEOUS STRUCTURES: Postsurgical changes and posterior spinal fusion hardware at L4-L5. Spinal stimulator device present. Multilevel degenerative changes in the spine. Bilateral hip joint arthritis. CT/CT abdomen pelvis wo IV con IMPRESSION: 1. Bilateral nonobstructing renal calculi. No evidence of significant hydronephrosis or ureteral intraluminal radiopaque calculi. Mild bilateral perinephric stranding. 2. Urinary bladder wall thickening, which could be related to partial distention versus other etiologies such as cystitis. Correlate to urinalysis. 3. Hepatic steatosis. 4. Additional nonacute findings, detailed above. Fleischner guidelines were followed.
--- NOTE | 2023-01-27 07:55 | ED_ITS ---
HPI - Male Genitourinary General Chief complaint: Urogenital-Male Stated complaint: pain when peeing Time Seen by Provider: 01/27/23 07:50 Source: patient Mode of arrival: ambulatory Limitations: language barrier ( Barbadian-speaking medical front desk coordinator utilized) History of Present Illness HPI Narrative: patient is a 62-year-old male with past medical history of chronic back pain presenting to the emergency department for evaluation of lower abdominal pain, dysuria, hematuria, sensation of incomplete voiding. This is been ongoing for the past 3 weeks but progressively worsening. He endorses associated chills and nausea but denies fever or vomiting. Denies constipation, diarrhea, hematochezia, melena. Related Data Home Medications Medication Instructions Recorded Confirmed dicyclomine 20 mg tablet 1 tab PO TID 04/20/20 08/13/22 fluoxetine 40 mg capsule 1 cap PO QAM 04/20/20 08/13/22 gabapentin 800 mg tablet 1 tab PO TID 04/20/20 08/13/22 trazodone 150 mg tablet 1 tab PO BEDTIME 04/20/20 08/13/22 simethicone 180 mg capsule (Gas 180 mg PO DAILY 09/20/21 08/13/22 Relief (simethicone)) atorvastatin 40 mg tablet 40 mg PO DAILY 08/13/22 08/13/22 Previous Rx's Medication Instructions Recorded oxycodone 5 mg tablet 5 mg PO Q6H PRN pain #4 tabs 08/13/22 ciprofloxacin HCl 500 mg tablet 500 mg PO Q12H #10 tabs 01/27/23 Allergies Allergy/AdvReac Type Severity Reaction Status Date / Time phenytoin [From DILANTIN] Allergy Intermediate NAUSEA Verified 09/30/21 11:23 Benadryl Allergy Unknown restless Verified 09/30/21 11:23 leg syndrome, shaky buprenorphine [Belbuca] Allergy Unknown nausea Verified 09/30/21 11:23 tramadol [TRAMADOL] Allergy Unknown UNABLE TO Verified 09/30/21 11:23 SLEEP , AGITATION, restless leg syndrome dylantin Allergy Unknown Unknown Uncoded 09/20/21 09:20 From BENADRYL Allergy Unknown AGITATION Uncoded 09/20/21 09:20 Review of Systems 2 Review of Systems: Yes all other systems are reviewed and are negative PMFSH Past Medical History Attestation statement: The following information was validated with the patient. Source: old records reviewed Medical History Colon cancer screening Chronic abdominal pain Anxiety Hyperlipidemia Chronic back pain Chronic pain Social History Social History Alcohol intake: never Patient Tobacco Use Status: Never used Tobacco Smoked in Last 30 Days: No Second Hand Smoke Exposure: No Use of substances other than those prescribed or required for medical reasons: No Advance Directives: Yes Advance Directives Information Provided: Yes Advance Directives on File: No service: No Current occupational status: unemployed and disabled Current occupation: Right handed Physical Exam 2 Vital Signs: Vital Signs: Last Vital Signs Temp 98.1 F 01/27/23 07:58 Pulse 63 01/27/23 11:22 Resp 14 01/27/23 11:22 BP 130/81 01/27/23 11:22 Pulse Ox 97 01/27/23 11:22 O2 Del Method Room Air 01/27/23 11:22 BMI result Body Mass Index 30.9 Appearance: Alert.?Oriented to person, place and time. No acute distress.?Normal affect. Eyes: Pupils equal, round and reactive to light.? ENT: Pharynx normal.?? Neck: Normal inspection.? Neck supple.?? CVS: Heart sounds normal. Normal heart rate and rhythm.? Pulses normal.?? Respiratory: No respiratory distress.? Lung sounds clear to auscultation bilaterally?? Abdomen: round, diffuse lower abdominal tenderness upon palpation. Right CVA tenderness. Normoactive bowel sounds. Skin: Skin warm and dry.? Normal skin color.? ? Extremities: No lower extremity edema.? Neuro: Moves all extremities spontaneously. Sensation intact bilaterally. Ambulates with normal steady gait. Course Reevaluation(s) Reevaluation #1: PVR bladder scan of 15 mL, no evidence of urinary retention. CBC revealing mild leukocytosis 11.3 Without left shift. CMP is overall unremarkable, no BLANCA or electrolyte derangement. urinalysis with microscopic hematuria and pyuria. CT scan with bilateral nonobstructing calculi no hydronephrosis, mild bilateral perinephric stranding and bladder wall thickening concerning for early pyelonephritis. There is no evidence of sepsis at this time, he is afebrile, tolerating oral intake patient is tolerating oral intake, discussed plan of care for discharge home, oral antibiotics were sent to pharmacy, advised outpatient follow-up with primary care provider within 1-3 days. Reviewed worrisome signs and symptoms that would warrant re-evaluation in the emergency department. Time: 11:49 Medications Administered Discontinued Medications Generic Name Dose Route Start Last Admin Trade Name Luis Felipeq PRN Reason Stop Dose Admin Sodium Chloride 1,000 mls @ 999 mls/hr 01/27/23 08:15 01/27/23 10:07 Ns IV 01/27/23 09:15 Infused .Q1H1M HUANG Infusion Ceftriaxone Sodium 1 gm/ 50 mls @ 100 mls/hr 01/27/23 09:50 01/27/23 10:35 Sodium Chloride IV 01/27/23 10:19 Infused ONCE ONE Infusion Ketorolac Tromethamine 30 mg 01/27/23 08:11 01/27/23 08:44 Ketorolac Tromethamine 30 Mg/Ml Vial IVPUSH 01/27/23 08:12 30 mg ONCE ONE Administration Morphine Sulfate 4 mg 01/27/23 10:11 01/27/23 10:23 Morphine Sulfate 4 Mg/Ml Cartridge IVPUSH 01/27/23 10:12 4 mg ONCE ONE Administration Protocol Ondansetron HCl 4 mg 01/27/23 08:11 01/27/23 08:46 Ondansetron Hcl 4 Mg/2 Ml Vial IVPUSH 01/27/23 08:12 4 mg ONCE ONE Administration Medical Decision Making Medical Decision Making MDM Narrative: Patient is a 62-year-old male with history of chronic back pain, anxiety, hyperlipidemia presenting to emergency department for evaluation of abdominal pain with dysuria and incomplete voiding sensation. At the time my examination he appears uncomfortable. diffuse lower ABD tenderness and right CVAT. Will obtain CBC to evaluate for leukocytosis/ anemia, CMP and lipase to evaluate for abnormal electrolytes /abnormal renal function/ abnormal hepatic/biliary function, CT AP and Urinalysis. patient to receive 1 L normal him IV fluid, Zofran IV for nausea, Toradol IV for pain. Differential Diagnosis Differential Diagnoses: The differential diagnosis associated with the presentation includes ( Urinary retention, urinary tract infection, pyelonephritis, ureteral calculi, hydronephrosis, less likely appendicitis/ diverticulitis/ colitis/obstruction) Admission/Observation Consideration of admission/observation: Escalation of care including admission/observation considered ( I considered admission for abdominal pain, see course narrative for further detail) Lab Data 01/27/23 08:36 01/27/23 08:36 Labs: Lab Results 01/27/23 Range/Units 08:36 WBC 11.3 H (4.8-10.8) X10*3/uL RBC 4.43 L (4.60-5.80) X10*6/uL Hgb 14.3 (14.0-18.0) g/dl Hct 41.0 L (42.0-52.0) % MCV 92.6 (80.0-98.0) fL MCH 32.3 (27.0-33.0) pg MCHC 34.9 (31.0-36.0) g/dl RDW 12.8 (11.0-16.0) % Plt Count 281 (160-400) X10*3/uL MPV 10.2 (9.4-12.4) fL Immature Gran % (Auto) 0.3 (0.0-0.4) % Neut % (Auto) 66.4 (45-73) % Lymph % (Auto) 19.3 L (20-40) % [place] % (Auto) 10.5 (2-11) % Eos % (Auto) 3.0 (0-4) % Baso % (Auto) 0.5 (0-2) % Lymph # (Auto) 2.2 (1.2-4.9) X10*3/uL [place] # (Auto) 1.2 (0.1-1.2) X10*3/uL Eos # (Auto) 0.3 (0.0-0.4) X10*3/uL Baso # (Auto) 0.1 (0.0-0.2) X10*3/uL Abs Immat Gran (auto) 0.03 (0.00-0.03) X10*3/uL Absolute Neuts (auto) 7.5 (2.0-8.3) x10*3/uL Absolute Nucleated RBC 0.000 (0.0-0.012) X10*3/uL Nucleated RBC % (auto) 0.0 (0.0-0.2) /100WBC Sodium 139 (135-145) mmol/L Potassium 4.0 (3.3-5.1) mmol/L Chloride 104 (96-108) mmol/L Carbon Dioxide 24 (22-29) mmol/L Anion Gap 15 (12-20) BUN 11 (9-16) mg/dL Creatinine 1.01 (0.5-1.4) mg/dL Estim Creat Clear Calc 73.1 Estimated GFR > 60 Random Glucose 149 H (60-115) mg/dL Calcium 9.9 D (8.4-10.2) mg/dL Total Bilirubin 0.4 (0.0-1.0) mg/dL AST 33 (5-37) U/L ALT 47 H (0-40) U/L Alkaline Phosphatase 128 H (39-117) U/L Total Protein 8.0 (6.5-8.0) g/dL Albumin 4.1 (3.5-5.0) g/dL Urine Color Dark Yellow Urine Appearance Cloudy Urine pH 5.5 (5.0-9.0) Ur Specific [place] 1.025 (1.005-1.025) Urine Protein 100 (2+) H (Neg-Trace) mg/dL Urine Glucose (UA) Negative (Negative) mg/dL Urine Ketones Trace (Negative) mg/dL Urine Blood Large (3+) H (Negative) Urine Nitrite Negative (Negative) Ur Leukocyte Esterase Small (1+) H (Negative) Urine RBC >20 H (0-2) /HPF Urine WBC >50 H (0-5) /HPF Ur Squamous Epith Cells 0-2 (0-2) /HPF Urine Bacteria 1+ (None Seen) Hyaline Casts 0-2 (0-2) /LPF Radiology Impression Discussion of test interpretation with radiology: I have reviewed the radiologist's reading. Radiologist Impression: CT/CT abdomen pelvis wo IV con IMPRESSION: 1. Bilateral nonobstructing renal calculi. No evidence of significant hydronephrosis or ureteral intraluminal radiopaque calculi. Mild bilateral perinephric stranding. 2. Urinary bladder wall thickening, which could be related to partial distention versus other etiologies such as cystitis. Correlate to urinalysis. 3. Hepatic steatosis. 4. Additional nonacute findings, detailed above. External Record Review External record reviewed: Outpatient record and Prior outpatient labs Discharge Plan Discharge Clinical Impression: Urinary tract infection Patient Disposition: Home, Self-Care Instructions: Urinary Tract Infection in Men (ED) Prescriptions: New ciprofloxacin HCl 500 mg tablet 500 mg PO Q12H Qty: 10 0RF No Action fluoxetine 40 mg capsule 1 cap PO QAM gabapentin 800 mg tablet 1 tab PO TID dicyclomine 20 mg tablet 1 tab PO TID trazodone 150 mg tablet 1 tab PO BEDTIME atorvastatin 40 mg Tablet 40 mg PO DAILY oxycodone 5 mg tablet 5 mg PO Q6H PRN (Reason: pain) Qty: 4 0RF Rx Instructions: Partial Fill upon patient request. simethicone [Gas Relief (simethicone)] 180 mg capsule 180 mg PO DAILY Referrals: Physician,Unknown J [Primary Care Provider] - Print Language: Barbadian
[2023-01-27 07:58] VITALS: BP 135/77; PULSE 81; RESP 16; TEMP 36.7; O2SAT 97; BMI 30.9
--- OUTSIDE RECORDS SUMMARY | 2023-01-27 08:22 | XMS_ITS | Continuity of Care Document ---
Author Name Unknown Organization [facility] Address [address] [place] [phone]- Care Team Providers Care Demonstrator [employer] Name Role Phone Dona Lopez MD, Jules Primary Care Phys ician [place] [facility] [place] 07/19/22 - 08/18/22 [facility] [address] [place] [address]- Allergies, Adverse Reactions, Alerts Substance Reaction Severity Status Dilantin restless legs Active Benadryl restless legs Active traMADol can't sleep when taking Ac tive Immunizations Given and Recorded Vaccine Date Status Refusal Reason influenza virus vaccine, inactivated 01/11/17 Jaren rded influenza virus vaccine, inactivated 1 01/17/16 Re corded pneumococcal 23-valent vaccine 03/08/16 Given Not Given Vaccine Date Status Refusal Reason influenza virus vaccine, inactivated 10/09/15 Not Given Parent Or Guardian Refuses pneumococcal 23-valent vaccine 10/09/15 Not Given Patient Refuses 1Location History: [facility] Medications atorvastatin 20 mg oral tablet 1 tablet = 20 mg, By Mouth, Daily, # 30 tablet, 1 Refills, Maintenance, Tablet, Route to Pharmacy Electronically, [id number], [facility] Start Date: 10/31/17 Stop Date: 12/30/17 Status: Ordered Cetirizine = 10 mg, By Mouth, 0 Refills, Maintenance, 08/10/20 8:44:00 EDT, Partial fill upon patient request if the prescription is for a schedule II opioid drug. Start Date: 08/10/20 Status: Ordered dicyclomine 10 mg oral capsule 2 capsule = 20 mg, By Mouth, Daily, 0 Refills, Maintenance, 07/21/18 2:15:01 EDT Start Date: 07/21/18 Status: Ordered FLUoxetine 40 mg oral capsule 1 capsule = 40 mg, By Mouth, Daily, 0 Refills, Maintenance, 06/23/20 10:11:00 EST, Partial fill upon patient request if the prescription is for a schedule II opioid drug. Start Date: 06/23/20 Status: Ordered Fluticasone Nasal = 50 mcg, Nares, Both, 2 times a day, Maintenance, 07/11/21 10:19:00 EST, Partial fill upon patientrequest if the prescription is for a schedule II opioid drug. Start Date: 07/11/21 Status: Ordered Gabapentin = 800 mg, By Mouth, 3 times a day, 0 Refills, Maintenance, 07/21/18 2:13:25 EDT Start Date: 07/21/18 Status: Ordered Omeprazole = 20 mg, By Mouth, Daily, Maintenance, 07/11/21 10:18:00 EST, Partial fill upon patient request if the prescription is for a schedule II opioid drug. Start Date: 07/11/21 Status: Ordered traZODone 150 mg oral tablet 1 tablet = 150 mg, By Mouth, Daily at bedtime, # 90 tablet, 0 Refills, Maintenance, 09/25/17 16:19:23 EDT, Tablet Start Date: 09/25/17 Status: Ordered Problem List Condition Confirmation Course Effective Dates Status [facility] at Inform[facility] Central pain syndrome Confirmed Active Chronic back pain Confirmed Active Daytime somnolence Confirmed Active Depression Confirmed Active Dysphagia Confirmed Active Difficulty in swallowing Confirmed Active Limitation due to disability 1, 2 Confirmed Active Drug or alcohol risk assessment or counseling 3 Confirmed Active Low back pain Confirmed Active Obese class I Confirmed Active *[facility] [phone] 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 Active Failed back surgical syndrome Confirmed Active Radicular pain of lower extremity Confirmed Active 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 1Oswestry Disability Index:pain scale: 24% moderate disability on 01/08/2022 2initial Oswestry Disability Index: 64% ( crippled ) on 02/04/15; initial Neck Disability Index: 66% on 02/04/15; initial [place] Back Pain Scale: 83 on 02/04/15; initial [place]: 12 on 02/04/15 3SOAPP-R: 14 on 02/04/15 Social History Social History Type Response Smoking Status Former smoker; Type: Cigarettes 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 Patient Care team information Care Team Personnel Name: Heather Dorado RN Position: [facility] RN Member Role: Primary Care Nurse Name: Jules Escalona MD Position: [facility] Outreach Member Role: PCP Address: Address: [address] [place] [address]- Name: Arlene Edmondson RN Position: [facility] RN Member Role: Primary Care Nurse Name: Neva Gomez RN Position: [facility] RN Member Role: Primary Care Nurse Name: Jason Santamaria RN Position: [facility] RN Member Role: Primary Care Nurse Name: Trinidad Drew RN Position: [facility] ED RN W/OE and Tasks Member Role: Primary Care Nurse Name: Radha Abad RN Position: [facility] RN Member Role: Primary Care Nurse Name: Grace Llamas RN Position: [facility] RN Member Role: Primary Care Nurse Name: Michael Lowry RN Position: [facility] RN Member Role: Primary Care Nurse Name: Pavithra Luis NP Position: Reference Physician Member Role: Primary Care Nurse Address: Address: [address] [place] [phone]- [place] Name: Celine Sales RN Position: [facility] RN Member Role: Primary Care Nurse Name: Lisa Iqbal RN Position: [facility] SN RN Member Role: Primary Care Nurse Care Team Related Persons Name: ISAC WARD Address: home [address] [place] [address]
--- OUTSIDE RECORDS SUMMARY | 2023-01-27 08:22 | XMS_ITS | Continuity of Care Document ---
Author Name Unknown Organization [facility] ter Address [address] [place] [phone]- Care Team Providers Care Director Orange Name Role Phone Dona Lopez MD, Jules Primary Care Phys ician Encounter [facility] [place] Date(s): 11/23/22 - 11/23/[address] [address]- Encounter Diagnosis Chest pain(Final) - 11/23/22 Discharge Disposition: A-D/C Home Attending Physician: Nellie Diego MD Admitting Physician: Nellie Diego MD Referring Physician: Not on Staff, Referring [...] Refills, Maintenance, Tablet, Route to Pharmacy Electronically, [id number], [facility] Start Date: 10/31/17 [...] List Condition Confirmation Course Effective Dates Status [facility] Informant Central pain syndrome Confirmed Active Chronic back pain Confirmed Active Daytime somnolence Confirmed Active Depression Confirmed Active Dysphagia Confirmed Active Difficulty in swallowing Confirmed Active Limitation due to disability 1, 2 Confirmed Active Drug or alcohol risk assessment or counseling 3 Confirmed Active Low back pain Confirmed Active Obese class I Confirmed Active *[facility] [phone] 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 Active Failed back surgical syndrome Confirmed Active Radicular pain of lower extremity Confirmed Active 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 1Oswestry Disability Index:pain scale: 24% moderate disability on 01/08/2022 2initial Oswestry Disability Index: 64% ( crippled ) on 9/25/15; initial Neck Disability Index: 66% on 02/04/15; initial [place] Back Pain Scale: 83 on 02/04/15; initial [place]: 12 on 02/04/15 3SOAPP-R: 14 on 02/04/15 Results Radiology Reports * Exam Date Time Procedure Performing Provider Status 11/23/22 7:21 AM Chest 2 Views Frontal and Lat Emely Andre alexandrea; Auth (Verified) Notes: (Chest 2 Views Frontal and Lat) Reason For Exam: Shortness of Breath RESULT: Chest 2 Views Frontal and Lat Chest 2 Views Frontal and Lat Hx of Present Illness: chest pain. COMPARISON: 08/25/2021 FINDINGS: LINES AND TUBES: New lower thoracic epidural spinal stimulator. LUNGS AND PLEURA: Clear lungs. Normal pulmonary vascularity. No pleural effusion. No pneumothorax. HEART, MEDIASTINUM AND CRISTINA: Heart is normal in size. Normal mediastinal and hilar contour. BONES AND SOFT TISSUES: Normal. IMPRESSION: Normal. WSN: [id number] Ordering Physician: Xin Adams Dictated By: Armand López MD Dictated Date/Time: 11/23/22 7:50 am Reviewed By: Armand López MD Signed By: Armand López MD Signed Date/Time: 11/23/22 7:50 am Transcribed By: LESLEY Transcribed Date/Time: 11/23/22 7:49 am Vital Signs Most recent to oldest [Reference Range]: 1 2 3 Oxygen Saturation [94-100 %] 97 % (11/23/22 6:33 AM) 95 % (11/23/22 6:19 AM) 97 % (11/23/22 4:40 AM) Pulse Rate [55-90 bpm] 60 bpm (11/23/22 6:33 AM) 71 bpm (11/23/22 6:19 AM) 64 bpm (11/23/22 4:40 AM) Blood Pressure [90-138/55-84 mm Hg] 144/97mm Hg *H* (11/23/22 6:33 AM) 134/95mm Hg (11/23/22 6:19 AM) 144/98mm Hg *H* (11/23/22 4:40 AM) Respiratory Rate [16-30 br/min] 16 br/min (11/23/22 6:33 AM) 15 br/min *L* (11/23/22 6:19 AM) Temperature [96.8-100.4 DegF] 97.7 DegF (11/23/22 6:19 AM) Mode of Delivery (Oxygen) Room air (11/23/22 6:33 AM) Room air (11/23/22 6:19 AM) Room air (11/23/22 4:40 AM) Blood pressure sites Arm, right (11/23/22 6:33 AM) Arm, right (11/23/22 6:19 AM) Arm, left (11/23/22 4:40 AM) Temperature Route Oral (11/23/22 6:19 AM) Social History Social History Type Response Smoking Status Former smoker; Type: Cigarettes 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 Note * Xin Oates: PERFORM, SIGN, VERIFY Event Display: Patient Education Handout Authored Date: [id number] Patient Care team information Care Team Personnel Name: Heather Dorado RN Position: [facility] RN Member Role: Primary Care Nurse Name: Jules Escalona MD Position: [facility] Outreach Member Role: PCP Address: Address: [address] [place] [phone]- Name: Arlene Edmondson RN Position: [facility] RN Member Role: Primary Care Nurse Name: Neva Gomez RN Position: [facility] RN Member Role: Primary Care Nurse Name: Triniadd Drew RN Position: [facility] ED RN W/OE and Tasks Member Role: Primary Care Nurse Name: Radha Abad RN Position: [facility] RN Member Role: Primary Care Nurse Name: Grace Llamas RN Position: S RN Member Role: Primary Care Nurse Name: Michael Lowry RN Position: [facility] RN Member Role: Primary Care Nurse Name: Pavithra Luis NP Position: Reference Physician Member Role: Primary Care Nurse Address: Address: [address] [place] [phone]- [place] Name: Celine Sales RN Position: [facility] RN Member Role: Primary Care Nurse Name: Lisa Iqbal RN Position: [facility] SN RN Member Role: Primary Care Nurse Name: Nellie Diego MD Position: [facility] ED Medicine MD Member Role: Admitting Physician Address: Address: [address] [place] [phone]- Name: Diana Del Valle Position: [facility] ED RN W/OE and Tasks Member Role: Patient Care Provider Name: Michelle Rolle RN Position: [facility] ED RN W/OE and Tasks Member Role: Patient Care Provider Name: Vin Garcia Position: [facility] ED TA [facility] Name: Xin Oates Position: [facility] Associate Professional Member Role: ED Physician [employer] Consult[employer] Address: Address: [address] [place] [address]- Care Team Related Persons Name: ISAC WARD Address: home [address] [place] [phone]
--- OUTSIDE RECORDS SUMMARY | 2023-01-27 08:22 | XMS_ITS | Continuity of Care Document ---
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 Name Role Phone Dona Lopez MD, Jules Primary Care Phys ician Encounter [facility] Date(s): 11/22/22 - 11/23/[address] [address]- Discharge Disposition: A-D/C Walkout Attending Physician: Not [...] Refills, Maintenance, Tablet, Route to Pharmacy Electronically, [id number], [facility] 3 Start Date: 10/31/17 [...] Condition Confirmation Course Effective Dates Status Health St atus Informant Central pain syndrome Confirmed Active Chronic back pain Confirmed Active Daytime somnolence Confirmed Active Depression Confirmed Active Dysphagia Confirmed Active Difficulty in swallowing Confirmed Active Limitation due to disability 1, 2 Confirmed Active Drug or alcohol risk assessment or counseling 3 Confirmed Active Low back pain Confirmed Active Obese class I Confirmed Active *[facility] [phone] 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 Active Failed back surgical syndrome Confirmed Active Radicular pain of lower extremity Confirmed Active 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 1Oswestry Disability Index:pain scale: 24% moderate disability on 01/08/2022 2initial Oswestry Disability Index: 64% ( crippled ) on 02/04/15; initial Neck Disability Index: 66% on 02/04/15; initial [place] Back Pain Scale: 83 on 02/04/15; initial [place]: 12 on 02/04/15 3SOAPP-R: 14 on 02/04/15 Vital Signs Most recent to oldest [Reference Range]: 1 2 3 Height 163 cm (11/22/22 5:06 PM) Oxygen Saturation [94-100 %] 98 % (11/23/22 3:04 AM) 99 % (11/22/22 11:53 PM) 98 % (11/22/22 8:46 PM) Pulse Rate [55-90 bpm] 66 bpm (11/23/22 3:04 AM) 74 bpm (11/22/22 11:53 PM) 76 bpm (11/22/22 8:46 PM) Blood Pressure [90-138/55-84 mm Hg] 132/88mm Hg (11/23/22 3:04 AM) 125/86mm Hg (11/22/22 11:53 PM) 129/83mm Hg (11/22/22 8:46 PM) Respiratory Rate [16-30 br/min] 16 br/min (11/22/22 5:06 PM) Temperature [96.8-100.4 DegF] 98.3 DegF (11/23/22 3:04 AM) 97.7 DegF (11/22/22 6:13 PM) 98.6 DegF (11/22/22 5:06 PM) Mode of Delivery (Oxygen) Room air (11/23/22 3:04 AM) Room air (11/22/22 11:53 PM) Room air (11/22/22 8:46 PM) Blood pressure sites Arm, left (11/23/22 3:04 AM) Arm, right (11/22/22 11:53 PM) Arm, left (11/22/22 8:46 PM) Temperature Route Oral (11/23/22 3:04 AM) Oral (11/22/22 6:13 PM) Oral (11/22/22 5:06 PM) Dry Weight 82 kg (11/22/22 5:06 PM) Dry Weight Obtained Via Patient/family s tated (11/22/22 5:06 PM) Social History Social History Type Response Smoking Status Former smoker; Type: Cigarettes 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 EKG study * Event Display: EKG Authored Date: [id number] Patient Care team information Care Team Personnel Name: Heather Dorado RN Position: [facility] RN Member Role: Primary Care Nurse Name: Jules Escalona MD Position: [facility] Outreach Member Role: PCP Address: Address: [address] [place] [address]- [place] Name: Arlene Edmondson RN Position: [facility] RN Member Role: Primary Care Nurse Name: Neva Gomez RN Position: [facility] RN Member Role: Primary Care Nurse Name: Trinidad Drew RN Position: [facility] ED RN W/OE and Tasks Member Role: Primary Care Nurse Name: Radha Abad RN Position: [facility] RN Member Role: Primary Care Nurse Name: Grace Llamas RN Position: S RN Member Role: Primary Care Nurse Name: Michael Lowry RN Position: [facility] RN Member Role: Primary Care Nurse Name: Pavithra Luis NP Position: Reference Physician Member Role: Primary Care Nurse Address: Address: [address] [place] [phone]- [place] Name: Celine Sales RN Position: [facility] RN Member Role: Primary Care Nurse Name: Lisa Iqbal RN Position: [facility] SN RN Member Role: Primary Care Nurse Care Team Related Persons Name: ISAC WARD Address: home [address] [place] [address]
--- OUTSIDE RECORDS SUMMARY | 2023-01-27 08:22 | XMS_ITS | Continuity of Care Document ---
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 Name Role Phone Dona Lopez MD, Jules [facility] [place] ACCT R [id number] Date(s): 10/16/22 - 11/15/22 [facility] [address] [place] [address]- Attending Physician: Iván Kevin Admitting Physician: Iván Kevin Referring Physician: AdmtrIván Allergies, Adverse Reactions, Alerts [...] Refills, Maintenance, Tablet, Route to Pharmacy Electronically, [id number], [facility] 3 Start Date: 10/31/17 [...] Confirmed Active Obese class I Confirmed Active *[facility] [phone] 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 Failed back surgical syndrome Confirmed Active Radicular pain of lower extremity Confirmed Active 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 1Oswestry Disability Index:pain scale: 24% moderate disability on 01/08/2022 2initial Oswestry Disability Index: 64% ( crippled ) on 02/04/15; initial Neck Disability Index: 66% on 02/04/15; initial [place] Back Pain Scale: 83 on 02/04/15; initial [place]: 12 on 02/04/15 3SOAPP-R: 14 on 02/04/15 Social History Social History Type Response Smoking Status Former smoker; Type: Cigarettes 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 Patient Care team information Care Team Personnel Name: Heather Dorado RN Position: S RN Member Role: Primary Care Nurse Name: Jules Escalona MD Position: S Outreach Member Role: PCP Address: Address: [address] [place] [address]- Name: Arlene Edmondson RN Position: S RN Member Role: Primary Care Nurse Name: Neva Gomez RN Position: S RN Member Role: Primary Care Nurse Name: Trinidad Drew RN Position: [facility] ED RN W/OE and Tasks Member Role: Primary Care Nurse Name: Radha Abad RN Position: S RN Member Role: Primary Care Nurse Name: Grace Llamas RN Position: S RN Member Role: Primary Care Nurse Name: Michael Lowry RN Position: S RN Member Role: Primary Care Nurse Name: Pavithra Luis NP Position: Reference Physician Member Role: Primary Care Nurse Address: Address: [address] [place] [phone]- [place] Name: Celine Sales RN Position: S RN Member Role: Primary Care Nurse Name: Lisa Iqbal RN Position: [facility] SN RN Member Role: Primary Care Nurse Care Team Related Persons Name: WARD ISAC Address: home [address] [place] [address]
--- OUTSIDE RECORDS SUMMARY | 2023-01-27 08:22 | XMS_ITS | Continuity of Care Document ---
Author Name Unknown Organization [facility] Address [address] [place] [address]- Care Team Providers Care Scalp Treatment Operator Name Role Phone Dona Lopez MD, Jules Primary Care Phys ician Encounter [facility] ACCT R [id number] Date(s): 11/23/22 - 12/23/22 [facility] [address] [place] [address]- Attending Physician: Iván Kevin Admitting Physician: AdmtrIván Referring Physician: AdmtrIván Allergies, Adverse Reactions, Alerts [...] Refills, Maintenance, Tablet, Route to Pharmacy Electronically, [id number], [facility] 3 Start Date: 10/31/17 Stop [...] Confirmed Active Obese class I Confirmed Active *[facility] [phone] 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 Failed back [...] Pain Scale: 83 on 02/04/15; initial [place]: 12 on 02/04/15 3SOAPP-R: 14 on 02/04/15 Social History Social History Type Response Smoking Status Former smoker; Type: Cigarettes 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 Patient Care team information Care Team Personnel Name: Heather Dorado RN Position: S RN Member Role: Primary Care Nurse Name: Jules Escalona MD Position: S Outreach Member Role: PCP Address: Address: [address] [place] [address]- Name: Arlene Edmondson RN Position: S RN Member Role: Primary Care Nurse Name: Neva Gomez RN Position: S RN Member Role: Primary Care Nurse Name: Trinidad Drew RN Position: [facility] ED RN W/OE and Tasks Member Role: Primary Care Nurse Name: Radha Abad RN Position: S RN Member Role: Primary Care Nurse Name: Grace Llamas RN Position: S RN Member Role: Primary Care Nurse Name: Michael Lowry RN Position: S RN Member Role: Primary Care Nurse Name: Pavithra Luis NP Position: Reference Physician Member Role: Primary Care Nurse Address: Address: [address] [place] [address]- [place] Name: Celine Sales RN Position: S RN Member Role: Primary Care Nurse Name: Lisa Iqbal RN Position: [facility] SN RN Member Role: Primary Care Nurse Care Team Related Persons Name: ISAC WARD Address: home [address] [place] [address]
[2023-01-27 08:28] VITALS: RESP 16
[2023-01-27 08:41] LABS: MANUAL DIFF FLAG NO
[2023-01-27 08:42] LABS: Basophils Absolute Auto 0.1 X10*3/uL (0.0-0.2); Basophils Percent Auto 0.5 % (0-2); Eosinophils Absolute Auto 0.3 X10*3/uL (0.0-0.4); Hemoglobin 14.3 g/dl (14.0-18.0); Imm Gran Abs Auto 0.03 X10*3/uL (0.00-0.03); Imm Gran Pct Auto 0.3 % (0.0-0.4); Lymphocytes Absolute Auto 2.2 X10*3/uL (1.2-4.9); Lymphocytes Percent Auto 19.3 % (20-40); Mean Corpuscular HGB Conc 34.9 g/dl (31.0-36.0); Mean Corpuscular Hemoglobin 32.3 pg (27.0-33.0); Mean Corpuscular Volume 92.6 fL (80.0-98.0); Mean Platelet Volume 10.2 fL (9.4-12.4); Monocytes Absolute Auto 1.2 X10*3/uL (0.1-1.2); Monocytes Percent Auto 10.5 % (2-11); Neutrophils Absolute Auto 7.5 x10*3/uL (2.0-8.3); Neutrophils Percent Auto 66.4 % (45-73); Platelet Count 281 X10*3/uL (160-400); Red Blood Count 4.43 X10*6/uL (4.60-5.80); Red Cell Distribution Width 12.8 % (11.0-16.0); White Blood Count 11.3 X10*3/uL (4.8-10.8)
[2023-01-27 08:43] LABS: Appearance Urine Cloudy; Color Urine Dark Yellow; Glucose Urine UA Negative (Negative); Leukocyte Esterase Urine Small (1+) (Negative); Nitrite Urine Negative (Negative); PH 5.5 (5.0-9.0); Specific Gravity - Urine 1.025 (1.005-1.025); UMIC TRIGGER UACC YES; Urine Blood Large (3+) (Negative); Urine Ketones Trace mg/dL (Negative); Urine Protein 100 (2+) mg/dL (Neg-Trace)
[2023-01-27] MEDS: Ketorolac Tromethamine 30 MG/ML VIAL IVPUSH (08:44)
[2023-01-27] MEDS: 0.9 % Sodium Chloride 1,000 ML 999 ML IV (08:44)
[2023-01-27 08:46] LABS: Bacteria Urine 1+ (None Seen); Hyaline Casts Urine 0-2 /LPF (0-2); RBC Urine >20 /HPF (0-2); Squamous Epithelial Cell Urine 0-2 /HPF (0-2); UACC Culture Trigger YES; WBC Urine >50 /HPF (0-5)
[2023-01-27] MEDS: ondansetron HCL 4 MG/2 ML VIAL IVPUSH (08:46)
[2023-01-27 08:58] LABS: Alanine Aminotransferase 47 U/L (0-40); Albumin Level 4.1 g/dL (3.5-5.0); Alkaline Phosphatase 128 U/L (39-117); Anion Gap 15 (12-20); Aspartate Amino Transferase 33 U/L (5-37); Bilirubin Total 0.4 mg/dL (0.0-1.0); Blood Urea Nitrogen 11 mg/dL (9-16); Calcium 9.9 mg/dL (8.4-10.2); Carbon Dioxide 24 mmol/L (22-29); Chloride 104 mmol/L (96-108); Creatinine Clr Calc Pharmacy 73.1; Estimated Glomerular Filt Rate > 60; Glucose Random 149 mg/dL (60-115); Sodium 139 mmol/L (135-145)
[2023-01-27] MEDS: cefTRIAXone sodium 1 GM in 0.9 % Sodium Chloride 50 ML IV (10:10)
[2023-01-27] MEDS: Morphine Sulfate 4 MG/ML CARTRIDGE IVPUSH (10:23)
[2023-01-27 11:22] VITALS: BP 130/81; PULSE 63; RESP 14; O2SAT 97
[2023-01-27 12:31] VITALS: BP 128/83; PULSE 68; RESP 16; TEMP 36.7; O2SAT 97
== END 2023-01-27 12:35 | disposition home or self-care (01) ==
PROVIDERS: Nurse Practitioner Family; Emergency Provider Student in an Organized Health Care Education/Training Program
DX: N39.0 Urinary tract infection, site not specified (principal); R30.0 Dysuria; R10.2 Pelvic and perineal pain; Z79.899 Other long term (current) drug therapy
CPT/HCPCS: 36415; 51798; 74176; 80053; 81001; 85025; 87086; 87088; 87186; 96361; 96365; 96375; 99284; 99285; J0696; J1885; J2270; J2405

== ENCOUNTER 2023-02-10 17:08 | Emergency (ER) | payer OTHER, SELFPAY ==
--- NOTE | ~2023-02-10 | CT_ITS ---
EXAMINATION: CT ABDOMEN AND PELVIS WITHOUT CONTRAST CLINICAL INFORMATION: Abdominal pain COMPARISON: 01/27/2023 TECHNIQUE: Multidetector volumetric imaging was performed from the superior aspect of the liver through the pubic symphysis. Sagittal and coronal reformatted images were obtained on the technologist's workstation. This CT examination was performed using dose optimization techniques as appropriate, variously including the following: *Automated exposure control *Adjustment of mA and/or kV according to patient size (this includes techniques or standardized protocols for targeted exams where dose is matched to indication/reason for exam; i.e. extremities or head) *Use of iterative reconstruction technique DLP: 637 mGy-cm FINDINGS: LUNG BASES: The visualized lung bases are unremarkable. LIVER, GALLBLADDER, AND BILIARY TREE: The liver is normal in size, shape, and attenuation. No focal hepatic lesion or biliary ductal dilatation is present. The gallbladder is unremarkable with no evidence of radiopaque gallstones, gallbladder wall thickening, or obvious pericholecystic inflammatory changes. PANCREAS: Unremarkable. SPLEEN: Unremarkable. ADRENAL GLANDS: Unremarkable. KIDNEYS AND URETERS: Once again nonobstructing renal calculi are noted. Once again small high density lesion lower pole left kidney uncertain etiology. Unchanged in size. 7 mm. This could represent a hyperdense cyst versus other. Otherwise probable cystic change is noted. BLADDER: Unremarkable. GASTROINTESTINAL TRACT: Diverticulosis but no evidence for diverticulitis. The appendix is within normal limits. The bowel pattern is nonobstructing. ABDOMINAL WALL: No significant hernia is appreciated. LYMPH NODES: Normal. VASCULAR: Some atherosclerotic changes noted PELVIC VISCERA: Prominent prostate OSSEOUS STRUCTURES: Hardware in the spine. Unchanged CT/CT abdomen pelvis wo IV con IMPRESSION: No acute finding. The bowel pattern is nonobstructing. No free fluid is seen. Once again nonobstructing renal calculi are noted. Other findings are noted above. Stable. Fleischner guidelines were followed.
--- NOTE | 2023-02-10 17:23 | ED_ITS ---
HPI - Abdominal Pain General Chief Complaint: Abdominal Pain Stated Complaint: abdominal pain Time Seen by Provider: 02/10/23 18:57 Source: patient, old records reviewed and icu registered nurse Mode of arrival: ambulatory Limitations: no limitations History of Present Illness HPI narrative: 62 yo male with PMH of anxiety, chronic back pain, HLD, recently seen here on 01/27 for enterococcus infection S to levofloxacin and ampicillin treated with cipro here with c/o persistent dysuria and lower abdomial pain but no fevers, n/v/d he states he took 7 days of antibiotic. He feels he has not improved and the pain persists. He MD elicited complaint: abdominal pain Pertinent past history: past UTI Onset (ago): week(s) (3) Pain Consistency: constant Location: suprapubic Severity: moderate Quality: cramping Radiation: none Migration to: no migration Exacerbating factors: movement Relieving factors: nothing Associated symptoms: nausea and dysuria Treatments prior to arrival: other Related Data Home Medications Medication Instructions Recorded Confirmed dicyclomine 20 mg tablet 1 tab PO TID 04/20/20 08/13/22 fluoxetine 40 mg capsule 1 cap PO QAM 04/20/20 08/13/22 gabapentin 800 mg tablet 1 tab PO TID 04/20/20 08/13/22 trazodone 150 mg tablet 1 tab PO BEDTIME 04/20/20 08/13/22 simethicone 180 mg capsule (Gas 180 mg PO DAILY 09/20/21 08/13/22 Relief (simethicone)) atorvastatin 40 mg tablet 40 mg PO DAILY 08/13/22 08/13/22 Previous Rx's Medication Instructions Recorded oxycodone 5 mg tablet 5 mg PO Q6H PRN pain #4 tabs 08/13/22 ciprofloxacin HCl 500 mg tablet 500 mg PO Q12H #10 tabs 01/27/23 Allergies Allergy/AdvReac Type Severity Reaction Status Date / Time phenytoin [From DILANTIN] Allergy Intermediate NAUSEA Verified 02/10/23 17:23 Benadryl Allergy Unknown restless Verified 02/10/23 17:23 leg syndrome, shaky buprenorphine [Belbuca] Allergy Unknown nausea Verified 02/10/23 17:23 tramadol [TRAMADOL] Allergy Unknown UNABLE TO Verified 02/10/23 17:23 SLEEP , AGITATION, restless leg syndrome dylantin Allergy Unknown Unknown Uncoded 02/10/23 17:23 From BENADRYL Allergy Unknown AGITATION Uncoded 02/10/23 17:23 Review of Systems Review of Systems Constitutional : No Weight loss, No Fever, No Chills ENT/Mouth : No sore throat, No Rhinorrhea Eyes: No Swelling, No Redness Cardiovascular : No Chest Pain, No SOB, NoEdema Respiratory : No Cough, No Sputum, No Wheezing Gastrointestinal : no Nausea, no Vomiting, no Diarrhea, positive abdominal Pain, No Hematochezia, No Melena Genitourinary : pos Dysuria, pos Urinary Frequency, No Hematuria, No Urgency Musculoskeletal : No joint pain, No Myalgias, No Joint Swelling Skin : No Skin Lesions, No rash Neuro : No Weakness, No Numbness, No Dizziness, No Headache Psych : No Anxiety/Panic, No Depression Heme/Lymph: No Bruising, No Lymphadenopathy Endocrine : No Polyuria, No Polydipsia All other systems reviewed and are negative. [facility] Past Medical History Attestation statement: The following information was validated with the patient. Medical History Colon cancer screening Chronic abdominal pain Anxiety Hyperlipidemia Chronic back pain Chronic pain Social History Social History Alcohol intake: never Patient Tobacco Use Status: Never used Tobacco Smoked in Last 30 Days: No Second Hand Smoke Exposure: No Use of substances other than those prescribed or required for medical reasons: No Advance Directives: No service: No Current occupational status: unemployed and disabled Current occupation: Right handed Physical Exam ED Vital Signs: Vital Signs - 24 hr 02/10/23 17:24 02/10/23 18:49 Temperature 98.4 F 98.2 F Pulse Rate 94 82 Respiratory Rate 16 16 Blood Pressure 125/95 H 114/70 Pulse Oximetry 97 97 Oxygen Delivery Method Room Air Room Air BMI result Body Mass Index 31.4 Appearance: Alert. Oriented X3. No acute distress. Eyes: Pupils equal, round and reactive to light. ENT: Pharynx normal. Neck: Normal inspection. Neck supple. CVS: Normal heart rate and rhythm. Pulses normal. Respiratory: No respiratory distress. Breath sounds normal. Abdomen: Soft and moderate suprapubic ttp but no rebound Skin: Skin warm and dry. Normal skin color. Normal skin turgor. Extremities: No lower extremity edema. No calf ttp Neuro: Oriented X 3. No motor deficit. No sensory deficit. Course Course Course Narrative: RME - 62 yo male with history of chronic back pain and chronic abdominal pain presents to the ER for evaluation of 3 weeks of lower abdominal pain. Seen here 01/27 for similar pain and was diagnosed w/ UTI, treated with cipro x5 days which he completed. He is having ongoing burning with urination, chills and nausea. No diarrhea or constipation. Plan: labs and UA Reevaluation(s) Reevaluation #1: will refer to PCP and GI doctor Reevaluation #2: after review of notes the patient suffers from chronic abdominal pain and he agrees with this Medical Decision Making Medical Decision Making MDM Narrative: 62 yo male with PMH of anxiety, chronic back pain, HLD, recently seen here on 01/27 for enterococcus infection S to levofloxacin and ampicillin treated with cipro here with c/o similar symptoms and pain at this time will need labs, UA and CT scan suspect he had pyelo based off CT scan and needed longer treatment. Differential Diagnosis Differential Diagnoses: The differential diagnosis associated with the presentation includes constipation, mass Admission/Observation Consideration of admission/observation: Escalation of care including admission/observation considered URINE AND CT SCAN NEGATIVE, vs stable, 3 weeks of pain and no acute findings Lab Data MDM Lab Attestation statement: I reviewed the patient's lab results. 02/10/23 18:10 02/10/23 18:10 Labs: Lab Results 02/10/23 02/10/23 Range/Units 18:10 20:17 WBC 9.6 (4.8-10.8) X10*3/uL RBC 4.35 L (4.60-5.80) X10*6/uL Hgb 13.9 L (14.0-18.0) g/dl Hct 40.3 L (42.0-52.0) % MCV 92.6 (80.0-98.0) fL MCH 32.0 (27.0-33.0) pg MCHC 34.5 (31.0-36.0) g/dl RDW 13.0 (11.0-16.0) % Plt Count 317 (160-400) X10*3/uL MPV 9.8 (9.4-12.4) fL Immature Gran % (Auto) 0.3 (0.0-0.4) % Neut % (Auto) 57.3 (45-73) % Lymph % (Auto) 32.4 (20-40) % [place] % (Auto) 7.6 (2-11) % Eos % (Auto) 1.8 (0-4) % Baso % (Auto) 0.6 (0-2) % Lymph # (Auto) 3.1 (1.2-4.9) X10*3/uL [place] # (Auto) 0.7 (0.1-1.2) X10*3/uL Eos # (Auto) 0.2 (0.0-0.4) X10*3/uL Baso # (Auto) 0.1 (0.0-0.2) X10*3/uL Abs Immat Gran (auto) 0.03 (0.00-0.03) X10*3/uL Absolute Neuts (auto) 5.5 (2.0-8.3) x10*3/uL Absolute Nucleated RBC 0.000 (0.0-0.012) X10*3/uL Nucleated RBC % (auto) 0.0 (0.0-0.2) /100WBC Sodium 140 (135-145) mmol/L Potassium 4.1 (3.3-5.1) mmol/L Chloride 104 (96-108) mmol/L Carbon Dioxide 27 (22-29) mmol/L Anion Gap 13 (12-20) BUN 10 (9-16) mg/dL Creatinine 1.15 (0.5-1.4) mg/dL Estim Creat Clear Calc 64.7 Estimated GFR > 60 Random Glucose 88 (60-115) mg/dL Calcium 9.6 (8.4-10.2) mg/dL Magnesium 2.1 (1.6-2.6) mg/dL Total Bilirubin 0.2 (0.0-1.0) mg/dL Direct Bilirubin < 0.2 (0.0-0.5) mg/dL AST 36 (5-37) U/L ALT 38 (0-40) U/L Alkaline Phosphatase 105 (39-117) U/L Total Protein 7.6 (6.5-8.0) g/dL Albumin 4.1 (3.5-5.0) g/dL Urine Color Yellow Urine Appearance Clear Urine pH 8.0 (5.0-9.0) Ur Specific [place] 1.010 (1.005-1.025) Urine Protein Negative (Neg-Trace) mg/dL Urine Glucose (UA) Negative (Negative) mg/dL Urine Ketones Negative (Negative) mg/dL Urine Blood Negative (Negative) Urine Nitrite Negative (Negative) Ur Leukocyte Esterase Negative (Negative) Independent Interpretation I performed an independent interpretation of an: CT Scan (no acute cause of pain) Radiology Impression Discussion of test interpretation with radiology: I have reviewed the radiologist's reading. External Record Review External record reviewed: Inpatient record Prescription Management I considered prescription management with: Other Medications Administered Discontinued Medications Generic Name Dose Route Start Last Admin Trade Name Freq PRN Reason Stop Dose Admin Morphine Sulfate 15 mg 02/10/23 19:28 02/10/23 19:39 Morphine Sulfate Immed Release 15 Mg Tablet PO 02/10/23 19:29 15 mg ONCE ONE Administration Ondansetron HCl 4 mg 02/10/23 19:28 02/10/23 19:39 Ondansetron Odt 4 Mg Tab.Rapdis TRANSLINGU 02/10/23 19:29 4 mg ONCE ONE Administration Discharge Plan Discharge Clinical Impression: Abdominal pain Patient Disposition: Home, Self-Care Instructions: Abdominal Pain (ED) Additional Instructions: return for worsening symptoms, fevers, pain, vomiting, black of bloody stools, please contact your doctor tomorrow and follow up with a job placement specialist. Regrese si los s?ntomas empeoran, fiebre, dolor, v?mitos, heces negras o con jaron, comun?quese con villatoro m?dico ma?minoo y ayush un seguimiento con un gastroenter?logo. Prescriptions: No Action fluoxetine 40 mg capsule 1 cap PO QAM gabapentin 800 mg tablet 1 tab PO TID dicyclomine 20 mg tablet 1 tab PO TID trazodone 150 mg tablet 1 tab PO BEDTIME atorvastatin 40 mg Tablet 40 mg PO DAILY oxycodone 5 mg tablet 5 mg PO Q6H PRN (Reason: pain) Qty: 4 0RF Rx Instructions: Partial Fill upon patient request. ciprofloxacin HCl 500 mg tablet 500 mg PO Q12H Qty: 10 0RF simethicone [Gas Relief (simethicone)] 180 mg capsule 180 mg PO DAILY Referrals: Rk Saucedo [Physician] - 1 week Interventions: ED Discharge Assessment Last Done: 02/10/23 22:30 Discharge Date/Time: 02/10/23 22:31 Print Language: French
[2023-02-10 17:24] VITALS: BP 125/95; PULSE 94; RESP 16; TEMP 36.9; O2SAT 97; BMI 31.4
[2023-02-10 18:14] LABS: MANUAL DIFF FLAG NO
[2023-02-10 18:15] LABS: Basophils Absolute Auto 0.1 X10*3/uL (0.0-0.2); Basophils Percent Auto 0.6 % (0-2); Eosinophils Absolute Auto 0.2 X10*3/uL (0.0-0.4); Eosinophils Percent Auto 1.8 % (0-4); Hematocrit 40.3 % (42.0-52.0); Hemoglobin 13.9 g/dl (14.0-18.0); Imm Gran Abs Auto 0.03 X10*3/uL (0.00-0.03); Imm Gran Pct Auto 0.3 % (0.0-0.4); Lymphocytes Absolute Auto 3.1 X10*3/uL (1.2-4.9); Lymphocytes Percent Auto 32.4 % (20-40); Mean Corpuscular HGB Conc 34.5 g/dl (31.0-36.0); Mean Corpuscular Volume 92.6 fL (80.0-98.0); Mean Platelet Volume 9.8 fL (9.4-12.4); Monocytes Absolute Auto 0.7 X10*3/uL (0.1-1.2); Monocytes Percent Auto 7.6 % (2-11); Neutrophils Absolute Auto 5.5 x10*3/uL (2.0-8.3); Neutrophils Percent Auto 57.3 % (45-73); Platelet Count 317 X10*3/uL (160-400); Red Blood Count 4.35 X10*6/uL (4.60-5.80); White Blood Count 9.6 X10*3/uL (4.8-10.8)
[2023-02-10 18:29] LABS: Alanine Aminotransferase 38 U/L (0-40); Albumin Level 4.1 g/dL (3.5-5.0); Alkaline Phosphatase 105 U/L (39-117); Anion Gap 13 (12-20); Aspartate Amino Transferase 36 U/L (5-37); Bilirubin Direct < 0.2 mg/dL (0.0-0.5); Bilirubin Total 0.2 mg/dL (0.0-1.0); Blood Urea Nitrogen 10 mg/dL (9-16); Calcium 9.6 mg/dL (8.4-10.2); Carbon Dioxide 27 mmol/L (22-29); Chloride 104 mmol/L (96-108); Creatinine Clr Calc Pharmacy 64.7; Estimated Glomerular Filt Rate > 60; Glucose Random 88 mg/dL (60-115); Magnesium 2.1 mg/dL (1.6-2.6); Potassium 4.1 mmol/L (3.3-5.1); Sodium 140 mmol/L (135-145); Total Protein 7.6 g/dL (6.5-8.0)
--- OUTSIDE RECORDS SUMMARY | 2023-02-10 18:45 | XMS_ITS | Continuity of Care Document ---
Author Name Unknown Organization [facility] Address [address] [place] [address]- Care Team Providers Care Employment Coach Name Role Phone Dona Lopez MD, Jules Primary Care Phys ician [place] [facility] [place] - 02/06/[address] [address]- Attending Physician: Iván Kevin Admitting Physician: AdmIván morales Referring Physician: AdmtrIván Allergies, Adverse Reactions, Alerts Substance Reaction Severity Status Dilantin restless legs Active traMADol can't sleep when taking Ac tive Benadryl restless legs Active Immunizations Given and Recorded Vaccine Date Status Refusal Reason influenza virus vaccine, inactivated 01/11/17 Jaren rded influenza virus vaccine, inactivated 1 01/17/16 Re corded pneumococcal 23-valent vaccine 03/08/16 Given 1Location History: [facility] Medications atorvastatin 20 mg oral tablet 1 tablet = 20 mg, By Mouth, Daily, # 30 tablet, 1 Refills, Maintenance, Tablet, Route to Pharmacy Electronically, [id number], [facility] 3 Start Date: 10/31/17 Stop Date: [...] Confirmation Course Effective Dates Status Health St at Informant Central pain syndrome Confirmed Active Chronic back pain Confirmed Active Daytime somnolence Confirmed Active Depression Confirmed Active Dysphagia Confirmed Active Difficulty in swallowing Confirmed Active Limitation due to disability 1, 2 Confirmed Active Drug or alcohol risk assessment or counseling 3 Confirmed Active Low back pain Confirmed Active Obese class I Confirmed Active *FORMERLY [facility] [phone] 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 Confirmed Active Failed back surgical syndrome Confirmed Active Radicular pain of lower extremity Confirmed Active 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 1Oswestry Disability Index:pain scale: 24% moderate disability on 01/08/2022 2initial Oswestry Disability Index: 64% ( crippled ) on 02/04/15; initial Neck Disability Index: 66% on 02/04/15; initial [place] Back Pain Scale: 83 on 02/04/15; initial [place]: 12 on 02/04/15 3SOAPP-R: 14 on 02/04/15 Social History Social History Type Response Smoking Status Former smoker; Type: Cigarettes 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 Patient Care team information Care Team Personnel Name: Heather Dorado RN Position: S RN Member Role: Primary Care Nurse Name: Jules Escalona MD Position: [facility] Outreach Member Role: PCP Address: Address: [address] [place] [address]- Name: Arlene Edmondson RN Position: S RN Member Role: Primary Care Nurse Name: Neva Gomez RN Position: S RN Member Role: Primary Care Nurse Name: Trinidad Drew RN Position: [facility] ED RN W/OE and Tasks Member Role: Primary Care Nurse Name: Radha Abad RN Position: [facility] RN Member Role: Primary Care Nurse Name: Grace Llamas RN Position: [facility] RN Member Role: Primary Care Nurse Name: Michael Lowry RN Position: [facility] RN Member Role: Primary Care Nurse Name: Pavithra Luis NP Position: Reference Physician Member Role: Primary Care Nurse Address: Address: [address] [place] [address]- [place] Name: Celine Sales RN Position: [facility] RN Member Role: Primary Care Nurse Name: Lisa Iqbal RN Position: [facility] SN RN Member Role: Primary Care Nurse Care Team Related Persons Name: ISAC WARD Address: home [address] [place] [address]
--- OUTSIDE RECORDS SUMMARY | 2023-02-10 18:45 | XMS_ITS | Continuity of Care Document ---
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 Name Role Phone Dona Lopez MD, Jules Primary Care Phys ician [place] [facility] [place](s): 01/04/23 - 02/03/23 [facility] [address] [place] [address]- Allergies, Adverse Reactions, Alerts Substance Reaction Severity [...] Refills, Maintenance, Tablet, Route to Pharmacy Electronically, [id number], [facility] 3 Start Date: 10/31/17 Stop Date: [...] Active Obese class I Confirmed Active *FORMERLY [facility] [phone] 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 Failed back surgical syndrome Confirmed Active Radicular pain of lower extremity Confirmed Active 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 1Oswestry Disability Index:pain scale: 24% moderate disability on 01/08/2022 2initial Oswestry Disability Index: 64% ( crippled ) on 02/04/15; initial Neck Disability Index: 66% on 02/04/15; initial [place] Back Pain Scale: 83 on 02/04/15; initial [place]: 12 on 02/04/15 3SOAPP-R: 14 on 02/04/15 Social History Social History Type Response Smoking Status Former smoker; Type: Cigarettes 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 Patient Care team information Care Team Personnel Name: Heather Dorado RN Position: [facility] RN Member Role: Primary Care Nurse Name: Jules Escalona MD Position: S Outreach Member Role: PCP Address: Address: [address] [place] [phone]- [place] Name: Arlene Edmondson RN Position: S RN Member Role: Primary Care Nurse Name: Neva Gomez RN Position: S RN Member Role: Primary Care Nurse Name: Trinidad Drew RN Position: [facility] ED RN W/OE and Tasks Member Role: Primary Care Nurse Name: Radha Abad RN Position: [facility] RN Member Role: Primary Care Nurse Name: Grace Llamas RN Position: [facility] RN Member Role: Primary Care Nurse Name: Michael Lowry RN Position: [facility] RN Member Role: Primary Care Nurse Name: Pavithra Luis NP Position: Reference Physician Member Role: Primary Care Nurse Address: Address: [address] [place] [phone]- [place] Name: Celine Sales RN Position: [facility] RN Member Role: Primary Care Nurse Name: Lisa Iqbal RN Position: [facility] SN RN Member Role: Primary Care Nurse Care Team Related Persons Name: ISAC WARD Address: home [address] [place] [address]
--- NOTE | 2023-02-10 18:48 | PC.NURSE ---
Pt states 9/10 lower abd pain, pt states recently completed antibiotic tx for UTI but symptoms are still present. Pt states dysuria, denies hematuria, denies diarrhea, occasional nausea associated with pain. Pt unable to provide urine sample at this time.
[2023-02-10 18:49] VITALS: BP 114/70; PULSE 82; RESP 16; TEMP 36.8; O2SAT 97
[2023-02-10] MEDS: Ondansetron ODT 4 MG TAB.RAPDIS TRANSLINGU (19:39)
[2023-02-10] MEDS: Morphine Sulfate Immed Release 15 MG TABLET PO (19:39)
[2023-02-10 20:25] LABS: Appearance Urine Clear; Color Urine Yellow; Glucose Urine UA Negative (Negative); Leukocyte Esterase Urine Negative (Negative); Nitrite Urine Negative (Negative); Urine Blood Negative (Negative); Urine Ketones Negative (Negative); Urine Protein Negative (Neg-Trace)
== END 2023-02-10 22:31 | disposition home or self-care (01) ==
PROVIDERS: Physician Assistant; Emergency Provider Emergency Medicine
DX: R10.30 Lower abdominal pain, unspecified (principal); R50.9 Fever, unspecified; R11.2 Nausea with vomiting, unspecified; R30.0 Dysuria; Z79.899 Other long term (current) drug therapy
CPT/HCPCS: 36415; 74176; 80048; 80076; 81003; 83735; 85025; 99284

== ENCOUNTER 2023-03-29 15:54 | Emergency (ER) | payer OTHER, SELFPAY ==
--- NOTE | ~2023-03-29 | XR_ITS ---
EXAMINATION: CHEST 2 VIEWS CLINICAL INFORMATION: chest pain. COMPARISON: 08/01/2022. TECHNIQUE: PA and lateral views of the chest obtained. FINDINGS: The lungs are well expanded. No focal infiltrate, effusion, edema, or pneumothorax. Cardiac and mediastinal silhouettes are within normal limits for technique. No acute bony abnormality seen. Spinal stimulation leads noted XR/XR chest 2V IMPRESSION: No evidence of acute disease
--- NOTE | 2023-03-29 15:56 | ECG_ITS ---
Test Reason : CHEST PAIN Blood Pressure : / mmHG Vent. Rate : 103 BPM Atrial Rate : 103 BPM P-R Int : 204 ms QRS Dur : 090 ms QT Int : 350 ms P-R-T Axes : 043 -63 027 degrees QTc Int : 458 ms Sinus tachycardia Left anterior fascicular block Cannot rule out Anterior infarct , age undetermined Abnormal ECG When compared with ECG of 13-AUG-2022 19:15, Minimal criteria for Anterior infarct are now Present Referred By: Lucie Donaldson Electronically Signed By:TIFFANY ARRIAGA MD
[2023-03-29 16:10] LABS: MANUAL DIFF FLAG NO
[2023-03-29 16:12] LABS: Basophils Absolute Auto 0.1 X10*3/uL (0.0-0.2); Basophils Percent Auto 0.5 % (0-2); Eosinophils Absolute Auto 0.1 X10*3/uL (0.0-0.4); Eosinophils Percent Auto 0.5 % (0-4); Hematocrit 41.6 % (42.0-52.0); Hemoglobin 14.4 g/dl (14.0-18.0); Imm Gran Abs Auto 0.05 X10*3/uL (0.00-0.03); Imm Gran Pct Auto 0.3 % (0.0-0.4); Lymphocytes Absolute Auto 1.6 X10*3/uL (1.2-4.9); Lymphocytes Percent Auto 10.5 % (20-40); Mean Corpuscular HGB Conc 34.6 g/dl (31.0-36.0); Mean Corpuscular Hemoglobin 32.7 pg (27.0-33.0); Mean Corpuscular Volume 94.3 fL (80.0-98.0); Mean Platelet Volume 10.1 fL (9.4-12.4); Monocytes Percent Auto 6.6 % (2-11); Neutrophils Absolute Auto 12.5 x10*3/uL (2.0-8.3); Neutrophils Percent Auto 81.6 % (45-73); Platelet Count 284 X10*3/uL (160-400); Red Blood Count 4.41 X10*6/uL (4.60-5.80); Red Cell Distribution Width 13.3 % (11.0-16.0); White Blood Count 15.4 X10*3/uL (4.8-10.8)
[2023-03-29 16:24] VITALS: BP 138/87; PULSE 107; RESP 17; TEMP 36.9; O2SAT 96; BMI 30.9
--- NOTE | 2023-03-29 16:25 | ED.GENADULT ---
HPI - General Adult General Chief complaint: General Medical Stated complaint: chest pain, L side lower back pain Time Seen by Provider: 03/29/23 18:13 Source: patient Mode of arrival: ambulatory Limitations: no limitations History of Present Illness HPI narrative: Patient comes to the emergency room complaining of chronic left-sided hip/flank pain for over a year. Also, patient complaining of left-sided chest pain for 3 days. Patient complaining of chronic dysuria for several months. Patient denies hematuria, no fever or chills. Related Data Home Medications Medication Instructions Recorded Confirmed dicyclomine 20 mg tablet 1 tab PO TID 04/20/20 08/13/22 fluoxetine 40 mg capsule 1 cap PO QAM 04/20/20 08/13/22 gabapentin 800 mg tablet 1 tab PO TID 04/20/20 08/13/22 trazodone 150 mg tablet 1 tab PO BEDTIME 04/20/20 08/13/22 simethicone 180 mg capsule (Gas 180 mg PO DAILY 09/20/21 08/13/22 Relief (simethicone)) atorvastatin 40 mg tablet 40 mg PO DAILY 08/13/22 08/13/22 Previous Rx's Medication Instructions Recorded oxycodone 5 mg tablet 5 mg PO Q6H PRN pain #4 tabs 08/13/22 ciprofloxacin HCl 500 mg tablet 500 mg PO Q12H #10 tabs 01/27/23 acetaminophen 500 mg tablet 500 mg PO Q6H PRN pain #30 tabs 03/29/23 cyclobenzaprine 10 mg tablet 10 mg PO BEDTIME PRN muscle spasm 03/29/23 #10 tabs Allergies Allergy/AdvReac Type Severity Reaction Status Date / Time phenytoin [From DILANTIN] Allergy Intermediate NAUSEA Verified 02/10/23 17:23 Benadryl Allergy Unknown restless Verified 02/10/23 17:23 leg syndrome, shaky buprenorphine [Belbuca] Allergy Unknown nausea Verified 02/10/23 17:23 tramadol [TRAMADOL] Allergy Unknown UNABLE TO Verified 02/10/23 17:23 SLEEP , AGITATION, restless leg syndrome dylantin Allergy Unknown Unknown Uncoded 02/10/23 17:23 From BENADRYL Allergy Unknown AGITATION Uncoded 02/10/23 17:23 Review of Systems Review of Systems: Constitutional : No Weight loss, No Fever, No Chills, No Night Sweats, No Fatigue, No Malaise ENT/Mouth : No Hearing loss, No Ear Pain, No Nasal Congestion, No Sinus Pain, No Hoarseness, No sore throat, No Rhinorrhea, No Swallowing Difficulty Eyes: No Eye Pain, No Swelling, No Redness, No Foreign Body, No Discharge, No Vision Changes Cardiovascular : Complaining of mild Chest Pain constant for 3 days, No SOB, No Dyspnea on Exertion, No Orthopnea, No Edema, No Palpitations Respiratory : No Cough, No Sputum, No Wheezing, No Smoke Exposure, No Dyspnea Gastrointestinal : No Nausea, No Vomiting, No Diarrhea, No Constipation, No abdominal Pain, No Hematochezia, No Melena Genitourinary : no irregular bleeding, complaining of chronic Dysuria, No Urinary Frequency, No Hematuria, No Urinary Incontinence, No Urgency, complaining of chronic left-sided Flank Pain, No Urinary Flow Changes, No Hesitancy Musculoskeletal : No joint pain, No Myalgias, No Joint Swelling Skin : No Skin Lesions, No rash Neuro : No Weakness, No Numbness, No Paresthesias, No Loss of Consciousness, No Dizziness, No Headache Psych : No Anxiety/Panic, No Depression, No SI/HI/AH/VH, No Social Issues, Heme/Lymph: No Bruising, No Bleeding,No Lymphadenopathy Endocrine : No Polyuria, No Polydipsia, No Temperature Intolerance PMFSH Past Medical History Medical History Colon cancer screening Chronic abdominal pain Anxiety Hyperlipidemia Chronic back pain Chronic pain Social History Social History Alcohol intake: never Patient Tobacco Use Status: Never used Tobacco Second Hand Smoke Exposure: No Advance Directives: No Advance Directives Information Provided: No service: No Current occupational status: unemployed and disabled Current occupation: Right handed Physical Exam ED Vital Signs: Vital Signs - 24 hr 03/29/23 16:24 03/29/23 18:27 03/29/23 18:48 Temperature 98.5 F 98.9 F Pulse Rate 107 H 95 Respiratory Rate 17 18 Blood Pressure 138/87 117/72 Pulse Oximetry 96 96 Oxygen Delivery Method Room Air Room Air BMI result Body Mass Index 30.9 Const Other: Appearance: Alert. Oriented X3. No acute distress. Eyes: Pupils equal, round and reactive to light. ENT: Pharynx normal. Neck: Normal inspection. Neck supple. No lymph nodes noted. No crepitus CVS: Normal heart rate and rhythm. Pulses normal. Normal S1 and S2 Respiratory: No respiratory distress. Breath sounds normal. No Wheezing. No rales Abdomen: Soft and nontender. No rigidity. No distention. No CVA tenderness Skin: Skin warm and dry. Normal skin color. Normal skin turgor. Extremities: No lower extremity edema. No Lacerations. No Rash Neuro: Oriented X 3. No motor deficit. No sensory deficit. Moving all extremities. No slurred speech. CN 2 through 12 grossly intact Psych: calm, cooperative, normal affect Course Course Course Narrative: This is an RME: Additional HPI, ROS, PE not included below will be deferred to primary provider. This is a [id number]-male presenting to the ER with complaints of right sided flank pain since yesterday and chest pain x 3 days. Pt also endorsing dysuria and urinary frequency. +nausea +dizzy. VSS. Plan: Labs, EKG, CXR, UA Medical Decision Making Medical Decision Making MDM Narrative: --I reviewed patient's labs, patient likely has reactive leukocytosis, no signs of infection. -mental additional chest x-ray: No pneumonia or rib fractures -my interpretation of labs: u rinalysis within normal limits, hematology and chemistry a baseline other than above cell count as mentioned above -speaking more with the patient, patient states that he has been seen by multiple specialists regarding the left-sided hip/flank pain. Patient has tried Orthopedics and the pain clinic. Patient is scheduled for an MRI. -patient has been having chest pain for 3 days, troponin negative. Unlikely to be of cardiac etiology. Patient has been evaluated in this emergency room multiple times for chest pain in the past. -overall, patient has significant anxiety and also chronic pain. Patient states he has an appointment pending with the pain clinic -I considered ordering a CT scan, however, patient has the same symptoms that he has presented in the past and that he has described having for over 2 years. Urinalysis is reassuring -patient instructed to follow-up with his primary care physician and his physician at the pain clinic. Also discussed with the patient that if he continues having dysuria, he may need a cystoscopy and to follow-up with urology Differential Diagnosis Differential Diagnoses: The differential diagnosis associated with the presentation includes (Pyelonephritis, chronic pain, cystitis, hip pain, musculoskeletal pain, costochondritis, ACS) Admission/Observation Consideration of admission/observation: Escalation of care including admission/observation considered Lab Data MDM Lab Attestation statement: I reviewed the patient's lab results. 03/29/23 16:01 03/29/23 16:01 Labs: Lab Results 03/29/23 03/29/23 Range/Units 16:01 19:12 WBC 15.4 H (4.8-10.8) X10*3/uL RBC 4.41 L (4.60-5.80) X10*6/uL Hgb 14.4 (14.0-18.0) g/dl Hct 41.6 L (42.0-52.0) % MCV 94.3 (80.0-98.0) fL MCH 32.7 (27.0-33.0) pg MCHC 34.6 (31.0-36.0) g/dl RDW 13.3 (11.0-16.0) % Plt Count 284 (160-400) X10*3/uL MPV 10.1 (9.4-12.4) fL Immature Gran % (Auto) 0.3 (0.0-0.4) % Neut % (Auto) 81.6 H (45-73) % Lymph % (Auto) 10.5 L (20-40) % [place] % (Auto) 6.6 (2-11) % Eos % (Auto) 0.5 (0-4) % Baso % (Auto) 0.5 (0-2) % Lymph # (Auto) 1.6 (1.2-4.9) X10*3/uL [place] # (Auto) 1.0 (0.1-1.2) X10*3/uL Eos # (Auto) 0.1 (0.0-0.4) X10*3/uL Baso # (Auto) 0.1 (0.0-0.2) X10*3/uL Abs Immat Gran (auto) 0.05 H (0.00-0.03) X10*3/uL Absolute Neuts (auto) 12.5 H (2.0-8.3) x10*3/uL Absolute Nucleated RBC 0.000 (0.0-0.012) X10*3/uL Nucleated RBC % (auto) 0.0 (0.0-0.2) /100WBC Sodium 142 (135-145) mmol/L Potassium 3.8 (3.3-5.1) mmol/L Chloride 106 (96-108) mmol/L Carbon Dioxide 26 (22-29) mmol/L Anion Gap 14 (12-20) BUN 10 (9-16) mg/dL Creatinine 1.13 (0.5-1.4) mg/dL Estim Creat Clear Calc TNP Estimated GFR > 60 Random Glucose 108 (60-115) mg/dL Calcium 9.6 (8.4-10.2) mg/dL Total Bilirubin 0.4 (0.0-1.0) mg/dL Direct Bilirubin 0.1 (0.0-0.5) mg/dL AST 32 (5-37) U/L ALT 34 (0-40) U/L Alkaline Phosphatase 93 (39-117) U/L Troponin I High Sens < 2.7 (<3.5-35.0) ng/L B-Natriuretic Peptide < 10 (<100) pg/mL Total Protein 7.9 (6.5-8.0) g/dL Albumin 4.5 (3.5-5.0) g/dL Urine Color Yellow Urine Appearance Clear Urine pH 6.5 (5.0-9.0) Ur Specific [place] 1.015 (1.005-1.025) Urine Protein Negative (Neg-Trace) mg/dL Urine Glucose (UA) Negative (Negative) mg/dL Urine Ketones Negative (Negative) mg/dL Urine Blood Negative (Negative) Urine Nitrite Negative (Negative) Ur Leukocyte Esterase Negative (Negative) Influenza Type A (PCR) NEGATIVE (Negative) Influenza Type B (PCR) NEGATIVE (Negative) RSV RNA Qual (PCR) NEGATIVE (Negative) SARS-CoV-2 RNA (RT-PCR) NEGATIVE (Negative) Independent Interpretation I performed an independent interpretation of an: Plain X-Ray Radiology Impression Discussion of test interpretation with radiology: I have reviewed the radiologist's reading. Radiologist Impression: The lungs are well expanded. No focal infiltrate, effusion, edema, or pneumothorax. Cardiac and mediastinal silhouettes are within normal limits for technique. No acute bony abnormality seen. Spinal stimulation leads noted XR/XR chest 2V IMPRESSION: No evidence of acute disease Critical Care Time Critical Care Time Critical Care Time: Yes Total Critical Care Time: 45 Attestation: I have personally provided critical care time. Time includes review of lab data, radiology results, discussion with consultants, and monitoring for potential decompensation. Intervention performed as documented. Discharge Plan Discharge Clinical Impression: Chronic left flank pain, Atypical chest pain Patient Disposition: Home, Self-Care Instructions: Chronic Pain (ED) Additional Instructions: Please follow-up with your primary care physician tomorrow. If you have any worsening or new symptoms, please return to the emergency room or call 911 Prescriptions: New acetaminophen 500 mg tablet 500 mg PO Q6H PRN (Reason: pain) Qty: 30 0RF cyclobenzaprine 10 mg tablet 10 mg PO BEDTIME PRN (Reason: muscle spasm) Qty: 10 0RF No Action fluoxetine 40 mg capsule 1 cap PO QAM gabapentin 800 mg tablet 1 tab PO TID dicyclomine 20 mg tablet 1 tab PO TID trazodone 150 mg tablet 1 tab PO BEDTIME atorvastatin 40 mg Tablet 40 mg PO DAILY oxycodone 5 mg tablet 5 mg PO Q6H PRN (Reason: pain) Qty: 4 0RF Rx Instructions: Partial Fill upon patient request. ciprofloxacin HCl 500 mg tablet 500 mg PO Q12H Qty: 10 0RF simethicone [Gas Relief (simethicone)] 180 mg capsule 180 mg PO DAILY
[2023-03-29 16:28] LABS: Alanine Aminotransferase 34 U/L (0-40); Albumin Level 4.5 g/dL (3.5-5.0); Alkaline Phosphatase 93 U/L (39-117); Anion Gap 14 (12-20); Aspartate Amino Transferase 32 U/L (5-37); Bilirubin Direct 0.1 mg/dL (0.0-0.5); Bilirubin Total 0.4 mg/dL (0.0-1.0); Blood Urea Nitrogen 10 mg/dL (9-16); Calcium 9.6 mg/dL (8.4-10.2); Carbon Dioxide 26 mmol/L (22-29); Chloride 106 mmol/L (96-108); Estimated Glomerular Filt Rate > 60; Glucose Random 108 mg/dL (60-115); Potassium 3.8 mmol/L (3.3-5.1); Sodium 142 mmol/L (135-145); Total Protein 7.9 g/dL (6.5-8.0)
[2023-03-29 16:34] LABS: B Type Natriuretic Peptide < 10 pg/mL (<100)
[2023-03-29 16:36] LABS: Troponin-I High Sensitivity < 2.7 ng/L (<3.5-35.0)
[2023-03-29 16:48] LABS: Influenza A PCR NEGATIVE (Negative); Influenza B PCR NEGATIVE (Negative); Resp Syncy Virus RNA Qual PCR NEGATIVE (Negative); SARS COV2 PCR INHOUSE NEGATIVE (Negative)
[2023-03-29 18:27] VITALS: TEMP 37.2
--- OUTSIDE RECORDS SUMMARY | 2023-03-29 18:42 | XMS_ITS | Continuity of Care Document ---
Author Name Unknown Organization [facility] Address [address] [place] [address]- Care Team Providers Care Forest Fire Management Officer Name Role Phone Dona Lopez MD, Jules Primary Care Phys ician [place]counter [facility] [place](s): 02/14/23 - 03/16/23 [facility] [address] [place] [address]- Allergies, Adverse Reactions, Alerts Substance Reaction Severity [...] Refills, Maintenance, Tablet, Route to Pharmacy Electronically, [id number], [facility] 3 Start Date: 10/31/17 Stop [...] I Confirmed Active *FORMERLY [facility] [phone] 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 Confirmed Active Failed back surgical [...] Back Pain Scale: 83 on 02/04/15; initial [place]: 12 on 02/04/15 3SOAPP-R: 14 on 02/04/15 Social History Social History Type Response Smoking Status Former smoker; Type: Cigarettes 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 Patient Care team information Care Team Personnel Name: Heather Dorado RN Position: [facility] RN Member Role: Primary Care Nurse Name: Jules Escalona MD Position: [facility] Outreach Member Role: PCP Address: Address: [address] [place] [address]- [place] Name: Arlene Edmondson RN Position: [facility] RN Member Role: Primary Care Nurse Name: Neva Gomez RN Position: [facility] RN Member Role: Primary Care Nurse Name: Trinidad Drew RN Position: [facility] ED RN W/OE and Tasks Member Role: Primary Care Nurse Name: Radha Abad RN Position: [facility] RN Member Role: Primary Care Nurse Name: Grace Llamas RN Position: [facility] RN Member Role: Primary Care Nurse Name: Michael Lowry RN Position: [facility] RN Member Role: Primary Care Nurse Name: Pavithra Luis NP Position: Reference Physician Member Role: Primary Care Nurse Address: Address: [address] [place] [phone]- [place] Name: Celine Sales RN Position: [facility] RN Member Role: Primary Care Nurse Name: Lisa Iqbal RN Position: [facility] SN RN Member Role: Primary Care Nurse Care Team Related Persons Name: ISAC WARD Address: home [address] [place] [address]
--- OUTSIDE RECORDS SUMMARY | 2023-03-29 18:42 | XMS_ITS | Continuity of Care Document ---
Author Name Unknown Organization [facility] Address [address] [place] [address]- Care Team Providers Care Hunting And Fishing Guide Name Role Phone Dona Lopez MD, Jules Primary Care Phys ician Encounter [facility] Date(s): 02/20/23 - 03/22/23 [facility] [address] [place] [address]- Allergies, Adverse Reactions, Alerts Substance Reaction Severity [...] Refills, Maintenance, Tablet, Route to Pharmacy Electronically, [id number], [facility] 3 Start Date: 10/31/17 Stop Date: 12/30/17 [...] Confirmed Active Obese class I Confirmed Active *[facility] [phone] [place] 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 Radicular pain of lower extremity Confirmed Active 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 1Oswestry Disability Index:pain scale: 24% moderate disability on 01/08/2022 2initial Oswestry Disability Index: 64% ( crippled ) on 02/04/15; initial Neck Disability Index: 66% on 02/04/15; initial [place] Back Pain Scale: 83 on 02/04/15; initial [place]: 12 on 02/04/15 3SOAPP-R: 14 on 02/04/15 Social History Social History Type Response Smoking Status Former smoker; Type: Cigarettes 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 Patient Care team information Care Team Personnel Name: Heather Dorado RN Position: [facility] RN Member Role: Primary Care Nurse Name: Jules Escalona MD Position: [facility] Outreach Member Role: PCP Address: Address: [address] [place] [address]- [place] Name: Arlene Edmondson RN Position: [facility] RN Member Role: Primary Care Nurse Name: Neva Gomez RN Position: [facility] RN Member Role: Primary Care Nurse Name: Trinidad Drew RN Position: [facility] ED RN W/OE and Tasks Member Role: Primary Care Nurse Name: Radha Abad RN Position: [facility] RN Member Role: Primary Care Nurse Name: Grace Llamas RN Position: [facility] RN Member Role: Primary Care Nurse Name: Michael Lowry RN Position: [facility] RN Member Role: Primary Care Nurse Name: Pavithra Luis NP Position: Reference Physician Member Role: Primary Care Nurse Address: Address: [address] [place] [address]- [place] Name: Celine Sales RN Position: [facility] RN Member Role: Primary Care Nurse Name: Lisa Iqbal RN Position: [facility] SN RN Member Role: Primary Care Nurse Care Team Related Persons Name: ISAC WARD Address: home [address] [place] [address]
--- OUTSIDE RECORDS SUMMARY | 2023-03-29 18:42 | XMS_ITS | Continuity of Care Document ---
Author Name Unknown Organization [facility] Address [address] [place] [address]- Care Team Providers Care Registered Travel Nurse Name Role Phone Dona Lopez MD, Jules Primary Care Phys ician [id number]/07/23 - 03/09/[address] [address]- Encounter Diagnosis Other reduced mobility(Final) - Discharge Disposition: A-D/C Home Attending Physician: Jules Escalona MD Admitting Physician: Jules Escalona MD Referring Physician: Jules Escalona MD Allergies, Adverse Reactions, Alerts Substance Reaction [...] Refills, Maintenance, Tablet, Route to Pharmacy Electronically, [id number], [facility] 3 Start Date: 10/31/17 Stop [...] List Condition Confirmation Course Effective Dates Status [facility] at Informant Central pain syndrome Confirmed Active Chronic back pain Confirmed Active Daytime somnolence Confirmed Active Depression Confirmed Active Dysphagia Confirmed Active Difficulty in swallowing Confirmed Active Limitation due to disability 1, 2 Confirmed Active Drug or alcohol risk assessment or counseling 3 Confirmed Active Low back pain Confirmed Active Obese class I Confirmed Active *[facility] [phone] 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 Confirmed Active Failed back surgical syndrome Confirmed Active Radicular pain of lower extremity Confirmed Active 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 1Oswestry Disability Index:pain scale: 24% moderate disability on 01/08/2022 2initial Oswestry Disability Index: 64% ( crippled ) on 02/04/15; initial Neck Disability Index: 66% on 02/04/15; initial [place] Back Pain Scale: 83 on 02/04/15; initial [place]: 12 on 02/04/15 3SOAPP-R: 14 on 02/04/15 Social History Social History Type Response Smoking Status Former smoker; Type: Cigarettes 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 Patient Care team information Care Team Personnel Name: Heather Dorado RN Position: S RN Member Role: Primary Care Nurse Name: Jules Escalona MD Position: S Outreach Member Role: PCP Address: Address: [address] [place] [address]- Name: Arlene Edmondson RN Position: S RN Member Role: Primary Care Nurse Name: Neva Gomez RN Position: [facility] RN Member Role: Primary Care Nurse Name: Trinidad Drew RN Position: [facility] ED RN W/OE and Tasks Member Role: Primary Care Nurse Name: Radha Abad RN Position: S RN Member Role: Primary Care Nurse Name: Grace Llamas RN Position: S RN Member Role: Primary Care Nurse Name: Michael Lowry RN Position: S RN Member Role: Primary Care Nurse Name: Pavithra Luis NP Position: Reference Physician Member Role: Primary Care Nurse Address: Address: [address] [place] [address]- [place] Name: Celine Sales RN Position: [facility] RN Member Role: Primary Care Nurse Name: Lisa Iqbal RN Position: [facility] SN RN Member Role: Primary Care Nurse Care Team Related Persons Name: WARD, ISAC Address: home [address] [place] [address]
[2023-03-29 18:48] VITALS: BP 117/72; PULSE 95; RESP 18; O2SAT 96
--- NOTE | 2023-03-29 19:17 | MHC.EDTECH ---
No further concerns as of present Pt expresses no other needs at this time Call light within reach Plan of care is ongoing.
[2023-03-29 19:23] LABS: Appearance Urine Clear; Color Urine Yellow; Glucose Urine UA Negative (Negative); Leukocyte Esterase Urine Negative (Negative); Nitrite Urine Negative (Negative); PH 6.5 (5.0-9.0); Specific Gravity - Urine 1.015 (1.005-1.025); Urine Blood Negative (Negative); Urine Ketones Negative (Negative); Urine Protein Negative (Neg-Trace)
[2023-03-29 20:37] VITALS: BP 110/75; PULSE 84; RESP 14; TEMP 36.8; O2SAT 96
--- NOTE | 2023-03-29 20:37 | PC.NURSE ---
pt clam and cooperative at discharge. pt utilized WC at discharge. vss. pt waiting for ride home from son in waiting room. pt provided with discharge packet. pt verbalized understanding of discharge plan
== END 2023-03-29 20:39 | disposition home or self-care (01) ==
PROVIDERS: Physician Assistant Medical; Emergency Provider Emergency Medicine
DX: R07.89 Other chest pain (principal); M54.50 Low back pain, unspecified; R30.0 Dysuria; R06.02 Shortness of breath; R10.9 Unspecified abdominal pain; Z79.899 Other long term (current) drug therapy; Z20.822 Contact with and (suspected) exposure to COVID-19; Z20.828 Contact with and (suspected) exposure to other viral communicable diseases
CPT/HCPCS: 0241U; 71046; 80048; 80076; 81003; 83880; 84484; 85025; 93005; 99283; 99284

== ENCOUNTER 2023-04-28 07:41 | Emergency (ER) | payer OTHER, SELFPAY ==
--- NOTE | ~2023-04-28 | XR_ITS ---
EXAMINATION: XR LUMBOSACRAL SPINE CLINICAL INFORMATION: Atraumatic low back pain radiating down both lower extremities. COMPARISON: None available. TECHNIQUE: Three views of the lumbosacral spine. FINDINGS: There is normal lumbar lordosis. There is disc prosthesis at the L4-L5 disc level with bilateral L4 and L5 pedicle screws and interconnecting rods. There is loss of disc height at rest of the disc levels. No aggressive lytic or sclerotic process seen. The SI joints are symmetrical. The paravertebral soft tissues are normal. XR/XR lumbar spine 2-3V IMPRESSION: 1. L4-L5 disc prosthesis with bilateral L4 and L5 pedicle screws and interconnecting rods. 2. There are degenerative disc changes at rest of the disc levels.
--- NOTE | ~2023-04-28 | CT_ITS ---
EXAMINATION: CT LUMBAR SPINE CLINICAL INFORMATION: Lower extremity numbness. COMPARISON: None available. TECHNIQUE: 2 mm thin axial and reformatted 2 minutes thin sagittal and coronal images of lumbar spine were obtained. This CT examination was performed using dose optimization techniques as appropriate, variously including the following: *Automated exposure control *Adjustment of mA and/or kV according to patient size (this includes techniques or standardized protocols for targeted exams where dose is matched to indication/reason for exam; i.e. extremities or head) *Use of iterative reconstruction technique DLP: 555 mGy-cm FINDINGS: There is maintained lumbar lordosis. There is minimal scoliosis. The vertebral heights and alignment is normal. On sagittal reconstructed images there is disc prosthesis at L4-L5 disc level stabilized with bilateral L4 and L5 pedicular screws and interconnecting rods. No hardware malfunction seen. Rest of the visualized disc heights, vertebral heights and alignment is normal. There is no evidence of disc bulge, herniation or spinal canal stenosis at any of the disc levels. The neural foramina patent bilaterally at all disc levels. The prevertebral and paravertebral soft tissues are normal.. There is nonspecific minimal sclerotic changes involving the right upper sacrum, nonspecific but can be seen with old stress fracture. CT/CT lumbar spine w IV con IMPRESSION: L4-L5 disc prosthesis with posterior hardware for fusion. The hardware is intact.
--- OUTSIDE RECORDS SUMMARY | 2023-04-28 07:48 | XMS_ITS | Continuity of Care Document ---
Author Name Unknown Organization [facility] Address [address] [place] [address]- Care Team Providers Care Process Project Engineer Name Role Phone Dona Lopez MD, Jules Primary Care Phys ician Encounter [facility] Date(s): 04/09/23 - 04/09/[address] [address] Discharge Disposition: A-D/C Home Attending Physician: Terri Montes De Oca MD Admitting Physician: Terri Montes De Oca MD Referring Physician: Terri Montes De Oca MD Allergies, Adverse Reactions, Alerts Substance Reaction [...] Refills, Maintenance, Tablet, Route to Pharmacy Electronically, [id number], [facility] 3 Start Date: 10/31/17 Stop [...] 2:15:01 EDT Start Date: 07/21/18 Status: Ordered Famotidine = 40 mg, Daily, 0 Refills, Maintenance, 04/09/23 13:05:00 EST, Partial fill upon patient request ifthe prescription is for a schedule II opioid drug. Start Date: 04/09/23 Status: Ordered Fentanyl Inj (PACU ONLY) 25 mcg, Injection, IV Push Slowly, Every 5 minutes for 12 doses/times, in PACU ONLY, PRN for Pain ,Moderate, Routine, 04/09/23 14:00:00 EST, Stop date 04/10/23 0:00:00 EST Start Date: 04/09/23 Stop Date: 04/10/23 Status: Completed FLUoxetine 40 mg oral capsule 1 capsule [...] 2:13:25 EDT Start Date: 07/21/18 Status: Ordered Hibiclens 4% soap See Instructions, shower using 1/2 bottle topically night before procedure and 1/2 bottle morning of procedure, # 120 mL, 0 Refills, Maintenance, 04/08/23 15:37:00 EST, [facility] #[id number], shower using 1/2 bottle topically night before proced... Start Date: 04/08/23 Status: Ordered Ondansetron = 8 mg, 0 Refills, Maintenance, 04/09/23 13:04:00 EST, Partial fill upon patient request if the prescription is for a schedule II opioid drug. Start Date: 04/09/23 Status: Ordered oxyCODONE 5 mg oral tablet 5 mg, 1, tablet, By Mouth, Every 6 hours, PRN, # 18 tablet, Refills 0, Tot. Refills 0, Maintenance,as needed for pain, 04/09/23 14:37:00 EST, Route to Pharmacy Electronically, [facility] #[id number], Partial fill upon patient request if the pres... Start Date: 04/09/23 Status: Ordered Oxycodone 5mg Oral Tablet (PACU ONLY) 10 mg, Tablet, By Mouth, Once, in PACU ONLY, PRN for Pain , Moderate, Routine, 04/09/23 14:00:00 EST Start Date: 04/09/23 Stop Date: 04/09/23 Status: Completed Simethicone = 180 mg, By Mouth, Daily, 0 Refills, Maintenance, 04/09/23 13:03:00 EST, Partial fill upon patientrequest if the prescription is for a schedule II opioid drug. 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 1Oswestry Disability Index:pain scale: 24% moderate disability on 01/08/2022 2initial Oswestry Disability Index: 64% ( crippled ) on 02/04/15; initial Neck Disability Index: 66% on 02/04/15; initial [place] Back Pain Scale: 83 on 02/04/15; initial [place]: 12 on 02/04/15 3SOAPP-R: 14 on 02/04/15 Vital Signs Most recent to oldest [Reference Range]: 1 2 3 Height 163 cm (04/09/23 12:47 PM) 163 cm (04/03/23 9:16 AM) 163 cm (04/03/23 9:09 AM) Weight 83.3 kg (04/09/23 12:47 PM) 81.7 kg (04/03/23 9:16 AM) Oxygen Saturation [94-100 %] 96 % (04/09/23 3:15 PM) 96 % (04/09/23 3:00 PM) 95 % (04/09/23 2:45 PM) Pulse Rate [55-90 bpm] 93 bpm *H* (04/09/23 12:47 PM) Body Mass Index [18.5-24.99 kg/m2] 31.35 kg/m2 *>HHI* (04/09/23 12:47 PM) 30.75 kg/m2 *>HHI* (04/03/23 9:16 AM) Blood Pressure [90-138/55-84 mm Hg] 124/87mm Hg (04/09/23 3:15 PM) 128/95mm Hg (04/09/23 3:00 PM) 123/101mm Hg (04/09/23 2:45 PM) Respiratory Rate [16-30 br/min] 16 br/min (04/09/23 3:35 PM) 16 br/min (04/09/23 3:20 PM) 9 br/min *L* (04/09/23 3:15 PM) Temperature [96.8-100.4 DegF] 98 DegF (04/09/23 3:15 PM) 97.5 DegF (04/09/23 2:30 PM) 98.4 DegF (04/09/23 12:47 PM) Liters per Minute 5 L/min (04/09/23 2:30 PM) Mode of Delivery (Oxygen) Room air (04/09/23 3:15 PM) Room air (04/09/23 3:00 PM) Room air (04/09/23 2:45 PM) Blood pressure sites Arm, left (04/09/23 12:47 PM) Temperature Route Temporal (04/09/23 3:15 PM) Temporal (04/09/23 2:30 PM) Temporal (04/09/23 12:47 PM) Dry Weight 83.3 kg (04/09/23 12:47 PM) 81.7 kg (04/03/23 9:16 AM) Weight Obtained Via Standing scale (04/09/23 12:47 PM) Patient/family stated (04/03/23 9:16 AM) Dry Weight Obtained Via Standing scale (04/09/23 12:47 PM) Patient/family stated (04/03/23 9:16 AM) Social History Social History Type Response Smoking Status Former smoker; Type: Cigarettes 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 Note * Jolene Vail: PERFORM, MODIFY Event Display: Patient Education/Instruction Authored Date: [id number] Inpatient Adult Discharge Instructions [address] [address] Name: SARAH BETH ARAUJO : 1960 Visit: 04/09/2023 11:08:00 Current Date: 04/09/2023 15:01 Account: [id number] Inpatient Adult Discharge Instructions We would like to thank you for allowing us to assist you with your healthcare needs. The following includes patient education materials and information regarding your injury/illness. Our entire staffstrives to provide an excellent experience for our patients and their families. PLEASE ENSURE YOU FOLLOW-UP PER THE INSTRUCTIONS BELOW! ?? YOUR OPINION IS IMPORTANT TO US! Please complete the survey you may receive by mail or email. Your feedback will be used to make improvements to the healthcare experiences of our patients and their families. Surveys are administered by [employer] ?? If further treatment with your primary care physician or another doctor is recommended, it is important for you to keep the appointment. Call your primary care physician or return to the Emergency Department immediately if your condition worsens, fails to improve, or new symptoms develop. If you need to find a doctor, you can call [facility] Link for a referral at [phone] or toll free at [phone]) or log in to [email or web address].. ?? [facility], in keeping with [facility] guidance, no longer requires face masks for staff, patientsor visitors in most situations. Similiar to time spent indoors at other locations, there is the chance that you were exposed to repiratory viruses during your time with us (such as flu or COVID-19). If you develop symptoms concerning for a viral respiratory infection, please seek testing (and treatment if indicated) from your medical provider or home test kit. ?? You can view and manage your care through the patient portal or by using a health care niranjan of your choosing. [employer] is a website that allows you to securely view your medical information including your hospital discharge summary, office visit summaries, medications and follow-up visits. You can also request appointments, renew medications, and request access to your medical information using a health care niranjan of your choosing, or just ask a question. You can enroll at [email or web address] or register during your next office visit. You have been discharged from [facility], Patient Care Unit: [facility]. If you have any questions regarding these instructions after you leave, please call us and we will be happy to assist you. [facility] Your Care Team Attending Physician Tavon LAWSON, Terri Discharging Providers Tavon LAWSON, Terri Reason for Admission FAILED BACK PAIN SYNDROMEDS CS Tests Performed Below is a partial list of the tests performed during your hospitalization. You may have had other tests and procedures not included in this list. Please discuss all test results with your provider. Primary Care Provider Dona Lopez MD, Jules Advance Directive Health Care Proxy on File Yes - Health Care Proxy Yes - [facility] Discharge Vitals Temperature: 97.5 DegF Height: 163 cm Pulse Rate:??93 bpm??High Weight: 83.3 kg Respiratory Rate:??14 br/min??Low Body Mass Index:??31.35 kg/m2??Critical Systolic Blood Pressure: 123 mm Hg Body surface area: 1.94 Diastolic Blood Pressure:??101 mm Hg??High ?? Oxygen Saturation: 95 % ?? Studies Pending All tests and labs ordered during this hospital stay have been completed unless listed below. Please discuss all pending results with your provider listed above in these instructions. ?? C-Arm < 1 Hour What to do next Instructions From Your Doctor Discharge Orders Shower in 24 hours. Do not scrub the incisions area, let the water run over it. Pat dry with a clean, dry towel. Take tylenol and prescribed pain medications for any discomfort. Follow up in 1 week at the pain clinic Stitches will be removed at your follow up appointment. ?? Call your doctor if: fevers over 100.5 persistent nausea or vomiting swelling or redness to the incision. bright red bloody drainage or pus like drainage from the incision site. Pain in the legs or calf. Scheduled Follow-Up Appointments Saturday 1:10 PM EST ?? With: Tavon LAWSON, Terri [facility] [address] [place] [address]- Status: Pending Discharge Medications SARAH BETH ARAUJO :1960 Visit Date:04/09/2023 Medications: Please continue your medications until treatment is completed or stopped by your provider. Medications not listed below should be discontinued. Discuss any questions related to medications with your provider. What How Much When Instructions Next Dose New Oxycodone (oxyCODONE 5 mg oral tablet) 1 tab(s) Oral Every 6 hours as needed for as needed for pain Pickup at [facility] #[id number] anytime Unchanged Atorvastatin (atorvastatin 20 mg oral tablet) 1 tab(s) Oral Daily Duration: 30 Days Unchanged Cetirizine 10 Milligram Oral Unchanged Chlorhexidine Topical (Hibiclens 4% soap) See instructions shower using 1/ 2 bottle topically night before procedure and 1/ 2 bottle morning of procedure ?? Unchanged Dicyclomine (dicyclomine 10 mg oral capsule) 2 capsule Oral Daily Unchanged Famotidine 40 Milligram Daily Unchanged Fluoxetine (FLUoxetine 40 mg oral capsule) 1 capsule Oral Daily Unchanged Fluticasone Nasal 50 Microgram Nares, Both Twice a day Unchanged Gabapentin 800 Milligram Oral 3 times a day Unchanged Ondansetron 8 Milligram Unchanged Simethicone 180 Milligram Oral Daily Unchanged Trazodone (traZODone 150 mg oral tablet) 1 tab(s) Oral Daily at Bedtime Pharmacy Information [facility] #[id number]: [address], [place] [phone] Tylenol: due at any time. Take every 6 hours. Test Results Below is a partial list of the most recent Laboratory test results done prior to this discharge. You may have had other tests and procedures not included in this list. Please discuss all test resultswith your provider. Allergies (NKA means No Known Allergies) Nikunjl??(restless legs) Dilantin??( restless legs ) traMADol??( can't sleep when taking ) Problems Active Problems??14 *[facility] [phone] BRAND ATTENDANT MOI HORTAITALIA?? Central pain syndrome?? Chronic back pain?? Daytime somnolence?? Depression?? Difficulty in swallowing?? Drug or alcohol risk assessment or counseling?? Dysphagia?? Failed back surgical syndrome?? Limitation due to disability?? Low back pain?? Obese class I?? 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 Radicular pain of lower extremity?? Education Materials Below is the list of Educational Leaflet Providered with your Discharge Instructions. Surgery Medical Daystay Surgical Overnight Discharge Instructions?NSAID Analgesic Schedule?? Valuables and Belongings I fully understand and agree that [facility] accepts no responsibility for all my personal [...] to send valuables and belongings home. ?? Review of Valuable and Belonging List: With patient Date for Pt to Sign Valuables/Belongings: 04/09/23 12:47:00 ?? Valuables & Belongings ?? Clothes Electronic devices Jewelry Monetary Items Personal devices Miscellaneous Medications (Valuables) Valuables at Bedside Jacket, Pants, Shirt, Shoes, Undergarments Cell phone ? Dentures, lower, Glasses ? Valuables Sent Home ? Valuables Sent to Security ? Other Discharge Information ? Pulmonary Rehab Status?? Pulmonary Rehab Discharge Status?? Respiratory Rate:??14 br/min??Low ? Common Emergency Awareness Tips IS IT [...] are strongly encouraged to quit. Please call [facility] Link at [phone] or [phone] ([phone]) or log in to [email or web address] for referrals to smoking cessation programs. ?? 143 Suicide & Crisis Lifeline is available 03/12 if you or someone you know needs to find a reason to keep living. By calling 035 you'll be connected to a skilled, trained counselor at a crisis center in your area. INPATIENT DISCHARGE INSTRUCTIONS SIGNATURE SARAH BETH SCHWARTZ Location:[facility] Registration Date and Time:04/09/2023 11:08 EST Primary Care Physician: Dona Lopez MD, Jules, Attending Physician: Tavon LAWSON, Terri, I SARAH BETH ARAUJO, have received the above patient education materials/instructions and have verbalized understanding. If ambulance or transport services are being used I further acknowledge being given a choice of service. ?? If you need to contact me, please call me at this number: . Patient/Sales Store Checker Name: Patient/Sales Store Checker Signature: Relationship to Patient: Witness Name/Signature: Date: * Jolene Vail: PERFORM Event Display: Patient Education Leaflets Authored Date: [id number] Surgery Medical Daystay Surgical Overnight Discharge Instructions [...] excessive swelling or redness, foul odor from incisionsite or fever over 100.6F, you need to [...] you should not drive or drink alcohol. ? * Jolene Vail: PERFORM Event Display: Patient Education Leaflets Authored Date: [id number] NSAID Analgesic Schedule ?? 604 NSAID???s Analgesic Schedule ?? Pain is the primary source of illness following your procedure and can include dehydration, difficulty and painful swallowing, and weight loss. These symptoms can lead to increased post-operative visits and hospital readmission. The best way to control pain is to take pain medications regularly. Your doctor has recommended both Ibuprofen and Acetaminophen (generic/store brands are okay, too). These can be picked up over the counter at your pharmacy of choice. Follow the instructions on the bottle to determine the proper dosage to give. The simplest way to take these medications it to rotate the two at 3-hour intervals. Here is a sample diagram. The time you take your medications may vary from this example. Do not give Ibuprofen more than every 6 hours or Acetaminophen every 4 hours. Do not give Acetaminophen if your doctor has given you a prescription that contains Acetaminophen. ? Patient Care team information Care Team Personnel Name: Heather Dorado RN Position: S RN Member Role: Primary Care Nurse Name: Jules Escalona MD Position: S Outreach Member Role: PCP Address: Address: [address] [place] [address]- [place] Name: Arlene Edmondson RN Position: S RN Member Role: Primary Care Nurse Name: Neva Gomez RN Position: S RN Member Role: Primary Care Nurse Name: Trinidad Drew RN Position: [facility] ED RN W/OE and Tasks Member Role: Primary Care Nurse Name: Radha Abad RN Position: S RN Member Role: Primary Care Nurse Name: Grace Llamas RN Position: S RN Member Role: Primary Care Nurse Name: Michael Lowry RN Position: S RN Member Role: Primary Care Nurse Name: Pavithra Luis NP Position: Reference Physician Member Role: Primary Care Nurse Address: Address: [address] [place] [address]- [place] Name: Celine Sales RN Position: S RN Member Role: Primary Care Nurse Name: Lisa Iqbal RN Position: [facility] SN RN Member Role: Primary Care Nurse Care Team Related Persons Name: IASC WARD Address: home [address] [place] [address]
[2023-04-28 07:51] VITALS: BP 137/94; PULSE 77; RESP 18; TEMP 36.6; O2SAT 97; BMI 32.4
--- NOTE | 2023-04-28 09:03 | ED.BACK ---
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 Pain radiates down both legs and is exacerbated with bearing weight. Denies recent injury/trauma/fall. Ambulates with cane at home and scooter when outside. Recently has had to use scooter around the house. Takes gabapentin and Flexeril for this at home. Takes Gabapentin 800 TID. States these have not been working. Last took these medications this morning. He currently has an appointment with an grants specialist in 5 days. Denies IVDU. Denies fever, chills, neck pain, chest pain, shortness of breath, nausea or vomiting, diarrhea, constipation, flank pain, abdominal pain, dysuria, hematuria, bowel or bladder incontinence or retention, numbness, tingling, weakness of the lower extremities, saddle anesthesia. Related Data Home Medications Medication Instructions Recorded Confirmed dicyclomine 20 mg tablet 1 tab PO TID 04/20/20 08/13/22 fluoxetine 40 mg capsule 1 cap PO QAM 04/20/20 08/13/22 gabapentin 800 mg tablet 1 tab PO TID 04/20/20 08/13/22 trazodone 150 mg tablet 1 tab PO BEDTIME 04/20/20 08/13/22 simethicone 180 mg capsule (Gas 180 mg PO DAILY 09/20/21 08/13/22 Relief (simethicone)) atorvastatin 40 mg tablet 40 mg PO DAILY 08/13/22 08/13/22 Previous Rx's Medication Instructions Recorded oxycodone 5 mg tablet 5 mg PO Q6H PRN pain #4 tabs 08/13/22 ciprofloxacin HCl 500 mg tablet 500 mg PO Q12H #10 tabs 01/27/23 acetaminophen 500 mg tablet 500 mg PO Q6H PRN pain #30 tabs 03/29/23 cyclobenzaprine 10 mg tablet 10 mg PO BEDTIME PRN muscle spasm 03/29/23 #10 tabs ketorolac 10 mg tablet 10 mg PO Q8H 5 days #15 tabs 04/28/23 lidocaine 5 % topical patch 1 patch topical DAILY #15 ea 04/28/23 (Lidoderm) prednisone 50 mg tablet 50 mg PO DAILY 5 days #5 tabs 04/28/23 Allergies Allergy/AdvReac Type Severity Reaction Status Date / Time phenytoin [From DILANTIN] Allergy Intermediate NAUSEA Verified 04/28/23 07:49 Benadryl Allergy Unknown restless Verified 04/28/23 07:49 leg syndrome, shaky buprenorphine [Belbuca] Allergy Unknown nausea Verified 04/28/23 07:49 tramadol [TRAMADOL] Allergy Unknown UNABLE TO Verified 04/28/23 07:49 SLEEP , AGITATION, restless leg syndrome dylantin Allergy Unknown Unknown Uncoded 02/10/23 17:23 From BENADRYL Allergy Unknown AGITATION Uncoded 02/10/23 17:23 Review of Systems Review of Systems: Constitutional: No fever, chills, fatigue, night sweats, weight changes ENT/Mouth: No ear pain, hearing loss, nasal congestion, sinus pain, rhinorrhea, sore throat Eyes: No eye pain, swelling, redness, vision changes, discharge Cardio: No chest pain, palpitations, JEFFERSON, orthopnea, peripheral edema Pulm: No SOB, cough, sputum, wheezing, dyspnea, hemoptysis GI: No nausea, vomiting, hematemesis, abdominal pain, diarrhea, constipation, hematochezia, melena : No irregular bleeding, dysuria, frequency, urgency, hesitancy, hematuria, flank pain, urinary flow changes, urinary incontinence or retention MSK: +back pain, No neck pain, joint pain, myalgias Skin: No lesions, rashes Neuro: No weakness, numbness, paresthesias, LOC, dizziness, headache All other systems reviewed and are negative. [facility] Past Medical History Attestation statement: The following information was validated with the patient. Source: old records reviewed and nursing notes reviewed Medical History Colon cancer screening Chronic abdominal pain Anxiety Hyperlipidemia Chronic back pain Chronic pain Social History Social History Alcohol intake: never Comment: trying to sleep Patient Tobacco Use Status: Never used Tobacco Smoked in Last 30 Days: No Second Hand Smoke Exposure: No Use of substances other than those prescribed or required for medical reasons: No Any prior treatment program specific to substance use: No Advance Directives: No Advance Directives Information Provided: Yes service: No Current occupational status: unemployed and disabled Current occupation: Right handed Physical Exam Vital Signs: Vital Signs: Last Vital Signs Temp 97.9 F 04/28/23 07:51 Pulse 77 04/28/23 13:51 Resp 18 04/28/23 13:51 BP 169/87 H 04/28/23 13:51 Pulse Ox 98 04/28/23 13:51 O2 Del Method Room Air 04/28/23 13:51 BMI result Body Mass Index 32.4 Vital signs stable, afebrile. Const: Other: + patient sitting in wheelchair General: cooperative, healthy appearing, no acute distress, alert and awake Orientation/consciousness: patient oriented x3 Limitations: no limitations HEENT: Head: Yes normal to inspection, Yes normocephalic and Yes atraumatic Ears: hearing grossly normal bilaterally Eyes: General: appearance normal, both eyes and all related structures Conjunctivae: conjunctivae normal Sclerae: sclerae normal Pupils: Equal, round and reactive pupils present EOM: EOMs intact bilaterally Neck: Neck: Yes normal visual inspection and Yes full ROM Resp: Effort & Inspection: normal respiratory effort and able to speak in complete sentences Auscultation: clear to auscultation bilaterally Cardio: Rate: regular rate Rhythm: regular rhythm Peripheral pulses: posterior tibial pulses present and dorsalis pedis present GI: Other: + soft, nontender, nondistended, no rebound tenderness or guarding, normoactive bowel sounds x4. Inspection: Yes normal to inspection : General: Yes no CVA tenderness Back/Spine/Pelvis: Other: + there is tenderness to palpation over the midline lumbar spine without step-off deformity. There is also tenderness to palpation of the lumbar paraspinal muscles bilaterally. Patient cries out in pain when attempting to transition from wheelchair to bed. Back: no CVA tenderness Pelvis: no pain with anterior-posterior compression and no pain with lateral compression Skin: General skin exam: no rashes or lesions noted Neuro: Other: Strength 5/5 intact throughout.? No saddle anesthesia.? Sensation intact to light touch.? Neurovascular intact distally.? Using wheelchair. General: patient oriented x3 and moves all extremities Cranial nerves: Yes Equal, round and reactive pupils present Motor exam (neuro): 5/5 motor strength present throughout Deep tendon reflexes (DTR's): Right patellar reflex intensity grade: 2+ and Left patellar reflex intensity grade: 2+ Plantar Reflex Responses: downgoing: bilateral Pupils: Normal pupillary reactivity/response: bilateral Extrem: General: Yes normal to inspection and Yes full ROM Course Course Course Narrative: X-ray lumbar spine unremarkable. Given patient's excruciating pain when transitioning from wheelchair to bed and inability to stand, will order CT lumbar spine as recommended by my attending physician. > reports mild improvement in pain with medications. CT lumbar spine unremarkable. Informed patient of results. States he is feeling better after receiving IV Dilaudid and that he would like to go home. He has been using a wheelchair to bring himself to the restroom. Standing and transitioning to toilet without difficulty. States that he has a family member coming to pick him up. Given patient's unremarkable workup and improvement with medications, I feel comfortable discharging him home with strict return precautions. Informed him to keep his appointment with grants specialist in 5 days. Will discharge him home with Toradol, lidocaine patch and a 5 day course of prednisone. Patient has remained stable throughout ED visit today. Discussed strict return precautions. All questions answered at this time. Patient is agreeable with disposition and stable for discharge. Medications Administered Discontinued Medications Generic Name Dose Route Start Last Admin Trade Name Bakari PRN Reason Stop Dose Admin Diazepam 2 mg 04/28/23 09:56 04/28/23 10:05 Diazepam 2 Mg Tablet PO 04/28/23 09:57 2 mg ONCE ONE Administration Hydromorphone HCl 1 mg 04/28/23 09:56 04/28/23 10:05 Hydromorphone Hcl 2 Mg Tablet PO 04/28/23 09:57 1 mg ONCE ONE Administration Hydromorphone HCl 1 mg 04/28/23 13:11 04/28/23 13:16 Hydromorphone Hcl 1 Mg/Ml Syringe IVPUSH 04/28/23 13:12 1 mg ONCE ONE Administration Protocol Iohexol 100 ml 04/28/23 11:27 04/28/23 11:28 Iohexol 350 Mg/Ml 100 Ml Infus..Btl IV 04/28/23 11:28 85 ml ONCE ONE Administration Ketorolac Tromethamine 60 mg 04/28/23 09:50 04/28/23 10:05 Ketorolac Tromethamine 60 Mg/2 Ml Vial IM 04/28/23 09:51 60 mg ONCE ONE Administration Lidocaine 1 patch 04/28/23 09:50 04/28/23 10:04 Lidocaine 4 % Patch Adh..Patch TRANSDERMA 04/28/23 09:51 1 patch ONCE ONE Administration Protocol Medical Decision Making Medical Decision Making [facility] Narrative: 62 year old male with pmhx significant for HDL, anxiety, and chronic back pain presents to the ED today with a complaint of acute on chronic low back pain x1 week. Vital signs stable. Patient is nontoxic appearing and in no acute distress. Sitting in wheelchair on examination. When I attempt to transition him from wheelchair to bed, patient in excruciating pain. There is tenderness to palpation of the midline lumbar spine and lumbar paraspinal muscles bilaterally. No step-off deformity noted. 2+ patellar DTRs intact. Sensation intact to light touch throughout. Neurovascularly intact distally. Exam nonfocal. Clinical concern for acute on chronic back pain, fracture, subluxation, disc herniation, sciatica. Lower suspicion for urinary tract infection, nephrolithiasis, cauda equina syndrome, epidural abscess. Unlikely pyelonephritis, cord compression, Guillain-[place]. Plan for imaging, pain control, re-evaluation. Differential Diagnosis Differential Diagnoses: The differential diagnosis associated with the presentation includes As above Admission/Observation Not indicated Independent Interpretation I performed an independent interpretation of an: Plain X-Ray and CT Scan Interpretation: X-ray lumbar spine without acute fracture subluxation, agree with radiologist's interpretation. CT lumbar spine without without soft tissue swelling, agree with radiologist's interpretation. Radiology Impression Discussion of test interpretation with radiology: I have reviewed the radiologist's reading. Radiologist Impression: XR lumbar spine 2-3V IMPRESSION: 1. L4-L5 disc prosthesis with bilateral L4 and L5 pedicle screws and interconnecting rods. 2. There are degenerative disc changes at rest of the disc levels. CT lumbar spine w IV con IMPRESSION: L4-L5 disc prosthesis with posterior hardware for fusion. The hardware is intact. External Record Review External record reviewed: Inpatient record, Office record, Outpatient record, Prior outpatient labs, Prior outpatient radiology, Primary care record and Outside ED record Prescription Management I considered prescription management with: Pain Medication Chronic Conditions Patient?s care impacted by: Hypertension and Other (chronic back pain s/p fusion) Social Determinants Patient?s care significantly limited by Social Determinants of Health including: Other Social Determinant of Health Critical Care Time Critical Care Time Critical Care Time: Yes Total Critical Care Time: 31 Attestation: Critical care time in the amount of 31 minutes has been provided to the patient in terms of direct patient care, frequent reevaluation on IV dilaudid, review and interpretation of medical data and results, and management of potentially life-threatening conditions. This is all outside of any medical procedures. Discharge Plan Discharge Clinical Impression: Strain of lumbar region Patient Disposition: Home, Self-Care Instructions: Back Pain (ED), Lower Back Exercises (ED) Additional Instructions: The x-ray of your low back shows previous hardware in place. Also shows degenerative changes within the discs. There is no fracture or herniation within the spine. This CT of your low back was normal. You likely have acute on chronic back pain due to muscle sprain or strain. Continue taking home meds as prescribed. Prednisone as a steroid that has been sent to your pharmacy. Take this over the next 5 days as prescribed. You tolerated a dose of Toradol in the ED today. This is been sent to your pharmacy to take as needed for pain/discomfort. Lidocaine patches have been sent to your pharmacy. You may apply these to your low back every 12 hours as needed for pain. You have also been provided with low back exercises to perform at home to help with pain. Keep your appointment with the orthopedic doctor that is scheduled in 5 days. Follow-up with your primary care provider. If symptoms persist or worsen please return to the emergency department. In the case of an emergency call 911. La radiograf?a de la maritza lumbar muestra el hardware anterior colocado. Tambi?n muestra cambios degenerativos dentro de los discos. No hay fractura ni hernia dentro de la columna. Esta tomograf?a computarizada de villatoro espalda baja fue normal. Es probable que tenga dolor de espalda ayden o cr?mercedes debido a un esguince o distensi?n muscular. Contin?e tomando los medicamentos en casa seg?n lo recetado. Prednisona harshil esteroide que ervin sido enviada a villatoro farmacia. T?felix magaly los pr?ximos 5 d?as seg?n lo prescrito. Hoy chandrakant? elisabeth dosis de Toradol en el servicio de urgencias. [place] se env?a a villatoro farmacia para que lo tome seg?n sea necesario en cr de dolor o malestar. Los parches de lidoca?na baltazar sido enviados a villatoro farmacia. Puede aplicarlos en la maritza lumbar cada 12 horas seg?n sea necesario para el dolor. Tambi?n se le baltazar proporcionado ejercicios para la espalda baja para que los realice en casa y le ayuden con el dolor. Acuda a villatoro liz con el m?dico ortop?dico que est? programada en 5 d?as. Jordi un seguimiento con villatoro proveedor de atenci?n primaria. Si los s?ntomas persisten o empeoran, regrese al departamento de emergencias. En cr de emergencia llame al 911. Prescriptions: New ketorolac 10 mg tablet 10 mg PO Q8H 5 Days Qty: 15 0RF prednisone 50 mg tablet 50 mg PO DAILY 5 Days Qty: 5 0RF lidocaine [Lidoderm] 5 % adhesive patch,medicated 1 patch topical DAILY Qty: 15 0RF Rx Instructions: leave on most painful area for up to 12 hrs No Action fluoxetine 40 mg capsule 1 cap PO QAM gabapentin 800 mg tablet 1 tab PO TID dicyclomine 20 mg tablet 1 tab PO TID trazodone 150 mg tablet 1 tab PO BEDTIME atorvastatin 40 mg Tablet 40 mg PO DAILY oxycodone 5 mg tablet 5 mg PO Q6H PRN (Reason: pain) Qty: 4 0RF Rx Instructions: Partial Fill upon patient request. acetaminophen 500 mg tablet 500 mg PO Q6H PRN (Reason: pain) Qty: 30 0RF cyclobenzaprine 10 mg tablet 10 mg PO BEDTIME PRN (Reason: muscle spasm) Qty: 10 0RF ciprofloxacin HCl 500 mg tablet 500 mg PO Q12H Qty: 10 0RF simethicone [Gas Relief (simethicone)] 180 mg capsule 180 mg PO DAILY Referrals: [facility]] Interventions: ED Discharge Assessment Last Done: 04/28/23 14:06 Discharge Date/Time: 04/28/23 14:06 Print Language: Pashto
[2023-04-28] MEDS: Lidocaine 4 % Patch ADH..PATCH 1 PATCH TRANSDERMA (10:04)
[2023-04-28] MEDS: HYDROmorphone HCl 2 MG TABLET 1 MG PO (10:05)
[2023-04-28] MEDS: diazePAM 2 MG TABLET PO (10:05)
[2023-04-28] MEDS: Ketorolac Tromethamine 60 MG/2 ML VIAL IM (10:05)
[2023-04-28 10:18] VITALS: RESP 18
--- NOTE | 2023-04-28 10:20 | PC.NURSE ---
pt sitting in wheel chair, bent over and took off his shoes and pants without difficulty or grimace, independently got dressed in the nani, moved himself into the bed and slid himself over without difficulty or grimace, nad, medicated as ordered, skin wpd, alert
[2023-04-28] MEDS: iohexoL 350 MG/ML 100 ML INFUS..BTL IV (11:28)
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
--- NOTE | 2023-04-28 12:46 | PC.NURSE ---
pt got out of bed independently to wheelchair and to restroom, pt sitting in wheelchair reporting cont'd pain, provider aware.
[2023-04-28] MEDS: HYDROmorphone HCl 1 MG/ML SYRINGE IVPUSH (13:16)
--- NOTE | 2023-04-28 13:20 | PC.NURSE ---
pt medicated for 9/10 back pain per JUL, plan for ambulation trial after pain medication, pt agreeable to plan. no new orders at this time.
[2023-04-28 13:51] VITALS: BP 169/87; PULSE 77; RESP 18; O2SAT 98
== END 2023-04-28 14:06 | disposition home or self-care (01) ==
PROVIDERS: Emergency Provider Emergency Medicine; PCP Internal Medicine
DX: S39.012A Strain of muscle, fascia and tendon of lower back, initial encounter (principal); X58.XXXA Exposure to other specified factors, initial encounter; Y93.9 Activity, unspecified; Y92.9 Unspecified place or not applicable; Y99.9 Unspecified external cause status
CPT/HCPCS: 72100; 72132; 96372; 96374; 99284; J1170; J1885; Q9967

== ENCOUNTER 2023-06-12 10:58 | Outpatient (AMB) | payer OTHER, SELFPAY ==
--- NOTE | 2023-06-12 11:00 | MHC.OFFVIS ---
Intake Vital Signs 06/12/23 11:01 Height 5 ft 4 in Intake Visit Reasons: Recall colonoscopy Intake Note: This patient presents for an assessment for recall colonoscopy screening. Pt c/o; last colonoscopy 08/04/2013, reports lower abdominal pain. Bacon Stringer Required: Yes Bacon Stringer Language: Merchandise Presentation Manager Name: Linda Information Interpreted: non-clinical & clinical Accompanied by: Self / Same As Patient Allergies phenytoin [From DILANTIN] Allergy (Intermediate, Verified 06/12/23 11:09) NAUSEA Benadryl Allergy (Unknown, Verified 06/12/23 11:09) restless leg syndrome, shaky buprenorphine [Belbuca] Allergy (Unknown, Verified 06/12/23 11:09) nausea tramadol [TRAMADOL] Allergy (Unknown, Verified 06/12/23 11:09) UNABLE TO SLEEP , AGITATION, restless leg syndrome dylantin Allergy (Unknown, Uncoded 06/12/23 11:09) Unknown From BENADRYL Allergy (Unknown, Uncoded 06/12/23 11:09) AGITATION HPI Recall colonoscopy HPI Details 62-year-old male referred for screening colonoscopy. His last colonoscopy on record was 10 years ago. He was noted to have hemorrhoids at that time with an otherwise unremarkable colonoscopy. I had also seen him 2 years ago for chronic abdominal pain at that time, he had recently undergone ?stomach surgery? in [place]. He continued to have chronic abdominal pain. He was uncertain as to the sac nature of his surgery at that point but he states that it was a complex surgery and had to be transferred to [place] from [facility]. He also has chronic back pain and chronic leg pain. [facility] Medical History Colon cancer screening Chronic abdominal pain Anxiety Hyperlipidemia Chronic back pain Chronic pain Social History Alcohol intake: never Comment: trying to sleep Patient Tobacco Use Status: Never used Tobacco Second Hand Smoke Exposure: No service: No Current occupational status: unemployed and disabled Current occupation: Right handed Review of Systems Const Denies chills and Denies fever(s) Card Denies chest pain, Denies dyspnea and Denies dyspnea on exertion Resp Denies cough, Denies dyspnea and Denies dyspnea on exertion GI Denies hematochezia and Denies change in bowel habits Denies hematuria and Denies difficulty urinating Musc Denies back pain and Denies limited range of motion Neuro Denies focal weakness and Denies convulsions Psych Denies depression and Denies mood swings Physical Exam Const Other: Walks with a cane General: comfortable and no acute distress Orientation/consciousness: patient oriented x3 Neck Neck: Yes no lymphadenopathy Resp Auscultation: clear to auscultation bilaterally Cardio Rhythm: regular rhythm GI Palpation (GI): Soft to palpation, nontender and no guarding Neuro General: patient oriented x3 Assessment & Plan Assessment & Plan (1) Colon cancer screening: Code(s): Z12.11 - Encounter for screening for malignant neoplasm of colon Plan: I reviewed with him the technique of colonoscopy. I discussed the risks including but not limited to bleeding, perforation, as well as the benefits and alternatives. He understands and wants to proceed. Coding Level of Care Code Est Pt Level 3 (78819) Diagnoses Colon cancer screening Z12.11
== END 2023-06-12 11:21 | disposition home or self-care (01) ==
PROVIDERS: Visit Provider Surgery
DX: Z12.11 Encounter for screening for malignant neoplasm of colon (principal)
CPT/HCPCS: 99213

== ENCOUNTER → 2023-06-12 10:58 | Outpatient (BNVA) | payer OTHER, SELFPAY | PROVIDERS: Visit Provider Surgery | DX: Z01.818 Encounter for other preprocedural examination (principal) | CPT/HCPCS: 99212 ==

== ENCOUNTER 2023-06-21 10:04 | Outpatient (REF) | payer OTHER, SELFPAY ==
[2023-06-21 14:46] LABS: Alanine Aminotransferase 36 U/L (0-40); Albumin Level 4.3 g/dL (3.5-5.0); Alkaline Phosphatase 92 U/L (39-117); Anion Gap 14 (12-20); Aspartate Amino Transferase 34 U/L (5-37); Bilirubin Total 0.4 mg/dL (0.0-1.0); Blood Urea Nitrogen 10 mg/dL (9-16); Calcium 9.3 mg/dL (8.4-10.2); Carbon Dioxide 25 mmol/L (22-29); Chloride 103 mmol/L (96-108); Cholesterol 188 mg/dL (<200); Estimated Glomerular Filt Rate 59; Glucose Random 62 mg/dL (60-115); HDL Cholesterol 58 mg/dL (>40); LDL Cholesterol Calculated 88 mg/dL (<100); Potassium 3.7 mmol/L (3.3-5.1); Sodium 138 mmol/L (135-145); Total Protein 7.5 g/dL (6.5-8.0); Triglycerides 211 mg/dL (<150)
[2023-06-21 15:06] LABS: Estimated Average Glucose 126 mg/dL
== END 2023-06-21 10:05 | disposition home or self-care (01) ==
LOC: HO.CHCLDS 10:04
PROVIDERS: Visit Provider Internal Medicine
DX: E78.2 Mixed hyperlipidemia (principal)
CPT/HCPCS: 36415; 80053; 80061; 83036

== ENCOUNTER 2023-07-05 07:48 | Day surgery (SDC) | payer OTHER, SELFPAY ==
[2023-07-03 11:07] VITALS: BMI 32.4
--- NOTE | 2023-07-04 10:39 | P.CONAN_ITS ---
HPI - Anesthesia Eval Consult details Narrative: 62yo M for Colonoscopy with Possible Polypectomy [facility] Active Problems Active Problems: All Active Problems (Updated 04/29/23 @ 00:02 by Katie Pappas) Colon cancer screening (Acute) Chronic abdominal pain (Acute) Anxiety (Acute) Hyperlipidemia (Acute) Chronic back pain (Acute) Patellofemoral pain syndrome of right knee (Acute) Patellofemoral pain syndrome of left knee (Acute) Past Medical History Medical History Colon cancer screening Chronic abdominal pain Anxiety Hyperlipidemia Chronic back pain Chronic pain Social History Social History (Updated 07/03/23 @ 11:07 by Xochitl Alvarez RN) Are you a primary customer care assistant to a significant other at home: No Do you presently have visiting nurse or other 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 services: 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) Alcohol intake: never Comment: trying to sleep Patient Tobacco Use Status: Former Tobacco user Quit Date: 2003 Tobacco use type: Cigarette Second Hand Smoke Exposure: No Use of substances other than those prescribed or required for medical reasons: No service: No Current occupational status: unemployed and disabled Current occupation: Right handed Meds Allergies Allergy/AdvReac Type Severity Reaction Status Date / Time phenytoin [From DILANTIN] Allergy Intermediate NAUSEA Verified 06/12/23 11:09 buprenorphine [Belbuca] Allergy Unknown nausea Verified 06/12/23 11:09 tramadol [TRAMADOL] Allergy Unknown UNABLE TO Verified 06/12/23 11:09 SLEEP , AGITATION, restless leg syndrome diphenhydramine Allergy RLS, Verified 07/02/23 16:12 shaky,agitation Home Medications Medication Instructions Recorded Confirmed Last Taken Type dicyclomine 20 mg tablet 1 tab PO TID 04/20/20 07/03/23 Unknown History fluoxetine 40 mg capsule 1 cap PO QAM 04/20/20 07/03/23 Unknown History gabapentin 800 mg tablet 1 tab PO TID 04/20/20 07/03/23 Unknown History trazodone 150 mg tablet 1 tab PO BEDTIME 04/20/20 07/03/23 Unknown History simethicone 180 mg capsule (Gas 180 mg PO DAILY 09/20/21 08/13/22 Unknown History Relief (simethicone)) atorvastatin 40 mg tablet 40 mg PO DAILY 08/13/22 07/03/23 Unknown History Exam Height,Weight and Vital Signs: Height 5 ft 4 in Weight 85.729 kg Pertinent Lab Results Pertinent Lab Results: Laboratory Tests 03/29/23 06/21/23 16:01 10:05 WBC 15.4 H Hgb 14.4 Hct 41.6 L Plt Count 284 Sodium 138 Potassium 3.7 Chloride 103 Carbon Dioxide 25 BUN 10 Creatinine 1.24 Narrative Narrative: EKG 03/2023 Vent. Rate : 103 BPM Atrial Rate : 103 BPM P-R Int : 204 ms QRS Dur : 090 ms QT Int : 350 ms P-R-T Axes : 043 -63 027 degrees QTc Int : 458 ms Sinus tachycardia Left anterior fascicular block Cannot rule out Anterior infarct , age undetermined Abnormal ECG When compared with ECG of 13-AUG-2022 19:15, Minimal criteria for Anterior infarct are now Present Assessment and Plan Assessment Anesthesia Assessment: Chart Reviewed
[2023-07-05 08:10] VITALS: BP 121/82; PULSE 100; RESP 16; TEMP 36.8; O2SAT 96
[2023-07-05] MEDS: Lactated Ringers 1,000 ML 100 ML IVCONT (08:23)
--- NOTE | 2023-07-05 09:11 | MHC.SHP ---
Pre-Procedural Eval Section A - 24 Hr Update-Section A only Date of Service: 07/05/23 The patient is an INPATIENT: No Changes since office visit: No Cold of Flu in the past 2 weeks, No New Medical Problems, No Changes in Medication and No Patient answered all questions The patient has been examined within 24 hours of the surgical procedure. The History & Physical has been completed within 30 days and I have reviewed it.: Yes Section B - Complete if H&P > 30 days Chief Complaint: screening Allergies: Allergies Allergy/AdvReac Type Severity Reaction Status Date / Time phenytoin [From DILANTIN] Allergy Intermediate NAUSEA Verified 07/05/23 08:04 buprenorphine [Belbuca] Allergy Unknown nausea Verified 07/05/23 08:04 tramadol [TRAMADOL] Allergy Unknown UNABLE TO Verified 07/05/23 08:04 SLEEP , AGITATION, restless leg syndrome diphenhydramine Allergy RLS, Verified 07/05/23 08:04 shaky,agitation Plan I have reviewed the history and physical and performed a pertinent physical examination on my patient. No changes have occurred unless specified. Time Spent With Patient Time: Total time managing care of this patient today ____ minutes.
--- NOTE | 2023-07-05 09:58 | HO.ANESPROP2 ---
[facility] Active Problems Active Problems: All Active Problems (Updated 04/29/23 @ 00:02 by Katie Pappas) Patellofemoral pain syndrome of left knee (Acute) Patellofemoral pain syndrome of right knee (Acute) Colon cancer screening (Acute) Chronic abdominal pain (Acute) Anxiety (Acute) Hyperlipidemia (Acute) Chronic back pain (Acute) Past Medical History Medical History Colon cancer screening Chronic abdominal pain Anxiety Hyperlipidemia Chronic back pain Chronic pain Family History Family history of problems with anesthesia: No Surgical History Surgical History (Updated 07/05/23 @ 08:04 by Mignon Mead, BERT) History of back surgery H/O colonoscopy Hx of abdominal surgery History of Problems with Anesthesia: No Social History Social History (Updated 07/03/23 @ 11:07 by Xochitl Alvarez RN) Are you a primary managed care analyst to a significant other at home: No Do you presently have visiting nurse 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) Alcohol intake: never Comment: trying to sleep Patient Tobacco Use Status: Former Tobacco user Quit Date: 2003 Tobacco use type: Cigarette Second Hand Smoke Exposure: No Use of substances other than those prescribed or required for medical reasons: No Are you DNR?: No Advance Directives: No Advance Directives Information Provided: Yes Advance Directives on File: No Poor oral hygiene: No service: No Current occupational status: unemployed and disabled Current occupation: Right handed Meds Allergies Allergy/AdvReac Type Severity Reaction Status Date / Time phenytoin [From DILANTIN] Allergy Intermediate NAUSEA Verified 07/05/23 08:04 buprenorphine [Belbuca] Allergy Unknown nausea Verified 07/05/23 08:04 tramadol [TRAMADOL] Allergy Unknown UNABLE TO Verified 07/05/23 08:04 SLEEP , AGITATION, restless leg syndrome diphenhydramine Allergy RLS, Verified 07/05/23 08:04 shaky,agitation Active Medications: Current Medications Lactated Ringer's (Lr) 1,000 mls @ 100 mls/hr IVCONT .Q10H HUANG Last Admin: 07/05/23 08:23 Dose: 100 mls/hr Ondansetron HCl (Ondansetron Hcl 4 Mg/2 Ml Vial) 4 mg IVPUSH ONCE PRN PRN Reason: Nausea and Vomiting Home Medications Medication Instructions Recorded Confirmed Last Taken Type dicyclomine 20 mg tablet 1 tab PO TID 04/20/20 07/05/23 Unknown History fluoxetine 40 mg capsule 1 cap PO QAM 04/20/20 07/05/23 Unknown History gabapentin 800 mg tablet 1 tab PO TID 04/20/20 07/05/23 Unknown History trazodone 150 mg tablet 1 tab PO BEDTIME 04/20/20 07/05/23 Unknown History simethicone 180 mg capsule (Gas 180 mg PO DAILY 09/20/21 07/05/23 Unknown History Relief (simethicone)) atorvastatin 40 mg tablet 40 mg PO DAILY 08/13/22 07/05/23 Unknown History Exam Height,Weight and Vital Signs: Height 5 ft 4 in Weight 85.729 kg Last Vital Signs Temp 98.3 F 07/05/23 08:10 Pulse 100 07/05/23 08:10 Resp 16 07/05/23 08:10 BP 121/82 07/05/23 08:10 Pulse Ox 96 07/05/23 08:10 O2 Del Method Room Air 07/05/23 08:10 Airway Mallampati Class: IV TM Dist: >3cm Neck ROM: Full Loose/Missing/Broken Teeth: Yes and Lower Heart: rrr Lungs: clear Assessment and Plan Final Anesthetic Review Family History of Problems with Anesthesia: No History of Problems with Anesthesia: No NPO: Yes Patient Risk: Intermediate Procedure Risk: Low Anesthetic Plan Anesthetic Plan: MAC: Disposition: Standard PACU
--- NOTE | 2023-07-05 10:44 | W.PM.OPN ---
Operative Note Operative Note Date of Service: 07/05/23 Narrative: Preop diagnosis: Cancer screening Postop diagnosis:1. Two flat polyps, 1 about 1 cm in diameter, the other 1 about 1.5 cm in diameter, in the cecum removed with multiple bites of cold forceps 2. Polyp at level 35 cm, about 8 mm in size, removed with hot snare 3. Polyp at level 20 cm, about 8 mm in size, removed with hot snare 4. Diffuse diverticulosis, heavy in the sigmoid 5. Small internal external hemorrhoids Procedure: Colonoscopy, with polypectomy using cold forceps x2 and polypectomy using hot snare x2 Surgeon: Keith Franklin MD The patient is a 62-year-old male here for screening colonoscopy. He understood the technique of the procedure as well as the risks, benefits, and alternatives The patient was brought to the operating room and placed in left lateral decubitus position under monitored anesthesia care. A surgical time-out was done. A full digital rectal exam was done and this did not reveal any significant anal lesions. The tip of the Olympus colonoscope was gently introduced through the anal orifice advanced with insufflation all the way to the cecum. The cecum was intubated. The cecum was identified by visualization of the ileocecal valve as well as the appendiceal orifice. There was note of 2 flat polyps in the cecum, nearly adjacent to each other, about 1.5 cm and 1 cm in diameter. I removed this with multiple bites of the cold biopsy forceps although it was unclear as to whether complete removal has been achieved because of some blood on the area. The scope was gradually withdrawn with careful examination of the entire colonic mucosa being done with scope withdrawal. The patient had a few segments with some residual stool although so it was unlikely that any lesion may have been missed. There was note of a polyp at level 35 cm, about 8 mm in size. This was removed using hot snare. There was another polyp at level 20 cm also about 8 mm in size. This was also removed with hot snare. There was note of diffuse diverticulosis, very heavy in the sigmoid. The rectum was reached and there were no lesions seen. The anal canal was unremarkable except for small internal external hemorrhoids. The scope was then withdrawn completely with desufflation. The patient tolerated procedure well. There were no immediate complications. In view of the flat polyps in the cecum, I will repeat the colonoscopy about 3-6 months to ensure adequate removal. He may even require resection if this can not be completely removed.
[2023-07-05 10:50] VITALS: BP 103/73; PULSE 74; RESP 14; TEMP 36.2; O2SAT 96
[2023-07-05 11:05] VITALS: BP 118/81; PULSE 67; RESP 14; O2SAT 98
[2023-07-05 11:20] VITALS: BP 117/84; PULSE 80; RESP 15; O2SAT 99
[2023-07-05 11:35] VITALS: BP 113/77; PULSE 75; RESP 16; TEMP 36.3; O2SAT 99
== END 2023-07-05 11:45 | disposition home or self-care (01) ==
PROVIDERS: PCP Internal Medicine; Visit Provider Surgery
PROC: 0DBE8ZZ Excision of Large Intestine, Via Natural or Artificial Opening Endoscopic (ICD-10-PCS; CPT 45385; principal; 2023-07-05 09:40)
DX: Z12.11 Encounter for screening for malignant neoplasm of colon (principal); D12.0 Benign neoplasm of cecum; D12.5 Benign neoplasm of sigmoid colon; K57.30 Diverticulosis of large intestine without perforation or abscess without bleeding; E78.5 Hyperlipidemia, unspecified; F41.9 Anxiety disorder, unspecified; G89.29 Other chronic pain; R10.9 Unspecified abdominal pain; M54.9 Dorsalgia, unspecified; M79.606 Pain in leg, unspecified; Z99.89 Dependence on other enabling machines and devices; Z88.8 Allergy status to other drugs, medicaments and biological substances; Z98.890 Other specified postprocedural states; Z87.891 Personal history of nicotine dependence
CPT/HCPCS: 45385; 45380; 88305; J1100; J1200; J2310; J2704

== ENCOUNTER → 2023-07-05 07:48 | Outpatient (BNV) | payer OTHER, SELFPAY | PROVIDERS: PCP Internal Medicine; Visit Provider Surgery | DX: Z12.11 Encounter for screening for malignant neoplasm of colon (principal); K63.5 Polyp of colon; K57.90 Diverticulosis of intestine, part unspecified, without perforation or abscess without bleeding; K64.8 Other hemorrhoids | CPT/HCPCS: 45380; 45385 ==

== ENCOUNTER 2023-07-18 10:23 | Outpatient (AMB) | payer OTHER, SELFPAY ==
--- NOTE | 2023-07-18 10:27 | A.OFFVIS_ITS ---
Intake Vital Signs 07/18/23 10:39 Weight 191 lb BP 132/87 Blood Pressure Location Rt brachial Position Sitting Pulse 106 H Intake Visit Reasons: S/p colonoscopy Intake Note: This patient presents for a post-op assessment status post colonoscopy. Patient c/o; reports no complaints. 07/05/23: DOS Allergies phenytoin [From DILANTIN] Allergy (Intermediate, Verified 07/05/23 08:04) NAUSEA buprenorphine [Belbuca] Allergy (Unknown, Verified 07/05/23 08:04) nausea tramadol [TRAMADOL] Allergy (Unknown, Verified 07/05/23 08:04) UNABLE TO SLEEP , AGITATION, restless leg syndrome diphenhydramine Allergy (Verified 07/05/23 08:04) RLS, shaky,agitation HPI S/p colonoscopy HPI Details He had undergone colonoscopy for screening last 07/05/2023. He tolerated the procedure well. He denies any complaints postoperatively except for bloating. 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) Alcohol intake: never Comment: trying to sleep Patient Tobacco Use Status: Former Tobacco user Quit Date: 2003 Tobacco use type: Cigarette Second Hand Smoke Exposure: No service: No Current occupational status: unemployed and disabled Current occupation: Right handed Review of Systems Const Denies chills and Denies fever(s) Card Denies chest pain, Denies dyspnea and Denies dyspnea on exertion Resp Denies cough, Denies dyspnea and Denies dyspnea on exertion GI Denies hematochezia and Denies change in bowel habits Denies hematuria and Denies difficulty urinating Musc Denies back pain and Denies limited range of motion Neuro Denies focal weakness and Denies convulsions Psych Denies depression and Denies mood swings Physical Exam Const General: comfortable and no acute distress Assessment & Plan Assessment & Plan (1) Tubular adenoma of colon: Code(s): D12.6 - Benign neoplasm of colon, unspecified Plan: Status post colonoscopy last July 05. I removed multiple polyps. There were 2 flat polyps seen in the cecum removed with forceps. These were tubular adenomas on pathology. There were 2 other polyps in the left colon sigmoid areas removed with hot snare and this were both tubular adenomas. In view of the flat nature of the polyps in the cecum, I am recommending a repeat colonoscopy in the next 6 months to ensure complete removal. There were no high-grade dysplasia on the adenomas. I will see him in the office therefore before 6 months to schedule him for another colonoscopy. Coding Level of Care Code Est Pt Level 3 (38947) Diagnoses Tubular adenoma of colon D12.6
[2023-07-18 10:39] VITALS: BP 132/87; PULSE 106
== END 2023-07-18 10:38 | disposition home or self-care (01) ==
PROVIDERS: Visit Provider Surgery
DX: D12.6 Benign neoplasm of colon, unspecified (principal)
CPT/HCPCS: 99213

== ENCOUNTER → 2023-07-18 10:23 | Outpatient (BNVA) | payer OTHER, SELFPAY | PROVIDERS: Visit Provider Surgery | DX: D12.6 Benign neoplasm of colon, unspecified (principal) | CPT/HCPCS: 99212 ==

== ENCOUNTER 2023-09-17 13:06 | Emergency (ER) | payer OTHER, SELFPAY ==
--- NOTE | ~2023-09-17 | XR_ITS ---
EXAMINATION: XR CHEST CLINICAL INFORMATION: Chest pain COMPARISON: 03/29/2023 TECHNIQUE: Frontal view of the chest was obtained. FINDINGS: No significant abnormality is noted involving the heart, lungs, mediastinum, bony thorax or soft tissues. Previously seen spinal stimulation catheters are no longer present. XR/XR chest 1V IMPRESSION: Unremarkable examination.
--- NOTE | 2023-09-17 13:12 | ECG_ITS ---
Test Reason : CHEST PAIN Blood Pressure : / mmHG Vent. Rate : 081 BPM Atrial Rate : 081 BPM P-R Int : 216 ms QRS Dur : 092 ms QT Int : 362 ms P-R-T Axes : 041 -50 010 degrees QTc Int : 420 ms Sinus rhythm with 1st degree A-V block Left axis deviation Abnormal ECG When compared with ECG of 29-MAR-2023 15:56, No significant change was found Referred By: Generic ED Physician Electronically Signed By:Rory Menjivar
[2023-09-17 13:27] VITALS: BP 124/80; PULSE 91; O2SAT 98
[2023-09-17 14:27] VITALS: BP 128/86; PULSE 87; RESP 18; TEMP 36.6; O2SAT 99; BMI 30.9
[2023-09-17 14:49] LABS: MANUAL DIFF FLAG NO
[2023-09-17 14:52] LABS: Basophils Absolute Auto 0.1 X10*3/uL (0.0-0.2); Basophils Percent Auto 0.9 % (0-2); Eosinophils Absolute Auto 0.1 X10*3/uL (0.0-0.4); Eosinophils Percent Auto 1.6 % (0-4); Imm Gran Abs Auto 0.02 X10*3/uL (0.00-0.03); Imm Gran Pct Auto 0.2 % (0.0-0.4); Lymphocytes Absolute Auto 2.4 X10*3/uL (1.2-4.9); Mean Corpuscular HGB Conc 35.7 g/dl (31.0-36.0); Mean Corpuscular Hemoglobin 32.8 pg (27.0-33.0); Mean Corpuscular Volume 91.9 fL (80.0-98.0); Mean Platelet Volume 10.3 fL (9.4-12.4); Monocytes Percent Auto 11.5 % (2-11); Neutrophils Absolute Auto 5.3 x10*3/uL (2.0-8.3); Neutrophils Percent Auto 58.8 % (45-73); Platelet Count 262 X10*3/uL (160-400); Red Blood Count 4.57 X10*6/uL (4.60-5.80); Red Cell Distribution Width 12.8 % (11.0-16.0)
[2023-09-17 15:18] LABS: Alanine Aminotransferase 31 U/L (0-40); Albumin Level 4.3 g/dL (3.5-5.0); Alkaline Phosphatase 87 U/L (39-117); Anion Gap 16 (12-20); Aspartate Amino Transferase 30 U/L (5-37); Bilirubin Total 0.4 mg/dL (0.0-1.0); Blood Urea Nitrogen 13 mg/dL (9-16); Calcium 9.6 mg/dL (8.4-10.2); Carbon Dioxide 23 mmol/L (22-29); Chloride 106 mmol/L (96-108); Creatinine Clr Calc Pharmacy 65.6; Estimated Glomerular Filt Rate > 60; Glucose Random 84 mg/dL (60-115); Potassium 4.5 mmol/L (3.3-5.1); Sodium 140 mmol/L (135-145); Total Protein 7.7 g/dL (6.5-8.0); Troponin-I High Sensitivity < 2.7 ng/L (<3.5-35.0)
[2023-09-17 15:31] LABS: Influenza A PCR NEGATIVE (Negative); Influenza B PCR NEGATIVE (Negative); Resp Syncy Virus RNA Qual PCR NEGATIVE (Negative); SARS COV2 PCR INHOUSE NEGATIVE (Negative)
[2023-09-17 20:45] LABS: Troponin-I High Sensitivity < 2.7 ng/L (<3.5-35.0)
[2023-09-17 20:55] VITALS: BP 138/93; PULSE 70; RESP 18; TEMP 36.8; O2SAT 98
[2023-09-17 20:59] VITALS: BP 138/93; PULSE 70; RESP 16; TEMP 36.8; O2SAT 98
--- OUTSIDE RECORDS SUMMARY | 2023-09-17 21:46 | XMS_ITS | Continuity of Care Document ---
Author Organization [facility] Address [address] [place] [id number]- Care Team Providers Care Tower Watchman Name Role Phone Dona Lopez MD, Jules Primary Care Phys [facility] Encounter [facility] Date(s): 04/17/23 - 05/17/23 [facility] [address] [place] [id number]- Attending Physician: Iván Kevin Admitting Physician: AdmIván [...] Refills, Maintenance, Tablet, Route to Pharmacy Electronically, [id number], [facility] Start Date: 10/31/17 Stop Date: 12/30/17 [...] opioid drug. Start Date: 04/09/23 Status: Ordered FLUoxetine 40 mg oral capsule [...] mL, 0 Refills, Maintenance, 04/08/23 15:37:00 EST, [facility] #[id number], shower using 1/2 bottle topically night before [...] 04/09/23 14:37:00 EST, Route to Pharmacy Electronically, [facility] #[id number], Partial fill upon patient request if the pres... Start Date: 04/09/23 Status: Ordered Simethicone = 180 mg, By Mouth, Daily, 0 Refills, Maintenance, 04/09/23 13:03:00 EST, Partial fill upon patientrequest if the prescription is for a schedule II opioid drug. Start Date: 04/09/23 Status: Ordered traZODone 150 mg oral tablet 1 tablet = 150 mg, By Mouth, Daily at bedtime, # 90 tablet, 0 Refills, Maintenance, 09/25/17 16:19:23 EDT, Tablet Start Date: 09/25/17 Status: Ordered Tylenol Extra Strength By Mouth, Every 6 hours, 0 Refills, Maintenance, 04/17/23 13:18:00 EST, Partial fill upon patient request if the prescription is for a schedule II opioid drug. 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 Confirmed Active Failed back [...] Back Pain Scale: 83 on 02/04/15; initial Willard: 12 on 02/04/15 3SOAPP-R: 14 on 02/04/15 Social History Social History Type Response Smoking Status Former smoker; Type: Cigarettes 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 Patient Care team information Care Team Personnel Name: Heather Dorado RN Position: [facility] RN Member Role: Primary Care Nurse Name: Jules Escalona MD Position: S Outreach Member Role: PCP Address: Address: [address] [place] [id number] Name: Arlene Edmondson RN Position: [facility] RN Member Role: Primary Care Nurse Name: Neva Gomez RN Position: S RN Member Role: Primary Care Nurse Name: Trinidad Drew RN Position: [facility] ED RN W/OE and Tasks Member Role: Primary Care Nurse Name: Radha Abad RN Position: [facility] RN Member Role: Primary Care Nurse Name: Grace Llamas RN Position: S RN Member Role: Primary Care Nurse Name: Michael Lowry RN Position: [facility] RN Member Role: Primary Care Nurse Name: Pavithra Luis NP Position: Reference Physician Member Role: Primary Care Nurse Address: Address: [address] [place] [id number]- Name: Celine Sales RN Position: [facility] RN Member Role: Primary Care Nurse Name: Lisa Iqbal RN Position: [facility] SN RN Member Role: Primary Care Nurse Care Team Related Persons Name: WARD, ISAC Address: home [address] [place] [id number]
--- NOTE | 2023-09-17 22:32 | ED_ITS ---
HPI - Chest Pain General Chief Complaint: Chest Pain Stated Complaint: CP Time Seen by Provider: 09/17/23 21:52 Source: patient Mode of arrival: ambulatory History of Present Illness HPI narrative: 63-year-old male with significant past medical history of chronic pain, anxiety, also has extensive acid reflux as well as prior stomach and distal esophageal surgeries for which he is followed in [place]. Patient also endorses that he had a CT scan approximately 1 month ago and will be following up with the specialist in November. He denies any fevers or chills, reports that his left-sided chest discomfort increases with deep inspiration and movement. Related Data Home Medications ?Medication ?Instructions ?Recorded ?Confirmed dicyclomine 20 mg tablet 1 tab PO TID 04/20/20 07/05/23 fluoxetine 40 mg capsule 1 cap PO QAM 04/20/20 07/05/23 gabapentin 800 mg tablet 1 tab PO TID 04/20/20 07/05/23 trazodone 150 mg tablet 1 tab PO BEDTIME 04/20/20 07/05/23 simethicone 180 mg capsule (Gas 180 mg PO DAILY 09/20/21 07/05/23 Relief (simethicone)) atorvastatin 40 mg tablet 40 mg PO DAILY 08/13/22 07/05/23 Previous Rx's ?Medication ?Instructions ?Recorded acetaminophen 500 mg tablet 500 mg PO Q6H PRN pain #30 tabs 03/29/23 cyclobenzaprine 10 mg tablet 10 mg PO BEDTIME PRN muscle spasm 03/29/23 #10 tabs omeprazole 40 mg capsule,delayed 40 mg PO DAILY #30 caps 09/17/23 release Allergies Allergy/AdvReac Type Severity Reaction Status Date / Time phenytoin [From DILANTIN] Allergy Intermediate NAUSEA Verified 09/17/23 14:32 buprenorphine [Belbuca] Allergy Unknown nausea Verified 09/17/23 14:32 tramadol [TRAMADOL] Allergy Unknown UNABLE TO Verified 09/17/23 14:32 SLEEP , AGITATION, restless leg syndrome diphenhydramine Allergy RLS, Verified 09/17/23 14:32 shaky,agitation Review of Systems 2 Review of Systems: Pertinent positives and negatives as stated in HPI PMFSH Past Medical History Source: nursing notes reviewed Medical History Tubular adenoma of colon Colon cancer screening Chronic abdominal pain Anxiety Hyperlipidemia Chronic back pain Chronic pain Surgical History History of colonoscopy History of back surgery H/O colonoscopy Hx of abdominal surgery Social History Social History Are you a primary care specialist to a significant other at home: No Do you presently have visiting nurse 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) Alcohol intake: never Comment: trying to sleep Patient Tobacco Use Status: Former Tobacco user Quit Date: 2003 Tobacco use type: Cigarette Smoked in Last 30 Days: No Second Hand Smoke Exposure: No Use of substances other than those prescribed or required for medical reasons: No Advance Directives: No Advance Directives Information Provided: No service: No Current occupational status: unemployed and disabled Current occupation: Right handed Physical Exam 2 Vital Signs: Vital Signs: Last Vital Signs Temp 98.3 F 09/17/23 20:59 Pulse 70 09/17/23 20:59 Resp 16 09/17/23 20:59 BP 138/93 H 09/17/23 20:59 Pulse Ox 98 09/17/23 20:59 O2 Del Method Room Air 09/17/23 20:59 BMI result Body Mass Index 30.9 VITAL SIGNS: Reviewed. GENERAL: Well developed, well nourished, in no acute distress. HEAD: Normocephalic/atraumatic EYES: PERRLA, EOMI EARS: Ext canals without abnormality NOSE: Nares patent bilateral OROPHARYNX: no oral lesions noted, posterior pharynx clear NECK: Supple, no adenopathy LUNGS: Normal breath sounds. No adventitious sounds or accessory muscle use. SpO2<98>; reproducible pain on palpation CARDIOVASCULAR: Regular rate and rhythm without noted murmurs, no JVD or lower extremity edema. ABDOMEN: Soft, non-tender, non-distended with bowel sounds. MUSCULOSKELETAL: No tenderness, deformities, or effusions noted on gross inspection. EXTREMITIES: No cyanosis, clubbing or edema. SKIN: Inspection of the skin reveals no rashes NEUROLOGIC: Alert and oriented x 4. Strength and sensation to light touch were grossly intact x 4. Medical Decision Making Medical Decision Making MDM Narrative: 63-year-old male with history and clinical presentation, DDX: GERD, no evidence to suggest obstruction, possible musculoskeletal/costochondritis, low clinical suspicion for cardiopulmonary etiology. No history or clinical findings to suggest cholecystitis/pancreatitis or obstruction. I reviewed all investigations and hematologic indices are negative for leukocytosis/anemia/thrombocytopenia. Chemistry indices are grossly within normal limits there is no BLANCA/electrolyte or liver enzyme derangements. Serial high sensitivity troponins are undetectable. EKG does not demonstrate any acute changes. Viral testing is negative for influenza/RSV/COVID-19. Chest x-ray negative for infiltrate/venous congestion and otherwise my interpretation is in agreement with radiology's impression. Patient offered GI cocktail and Carafate, he will be discharged for follow-up with primary care doctor with presumptive GERD symptoms Differential Diagnosis Differential Diagnoses: The differential diagnosis associated with the presentation includes Please see the discussion above Admission/Observation Consideration of admission/observation: Escalation of care including admission/observation considered Please see the discussion above Lab Data MDM Lab Attestation statement: I reviewed the patient's lab results. Please see the discussion 09/17/23 14:46 09/17/23 14:46 Labs: Lab Results 09/17/23 09/17/23 Range/Units 14:46 20:13 WBC 9.0 (4.8-10.8) X10*3/uL RBC 4.57 L (4.60-5.80) X10*6/uL Hgb 15.0 (14.0-18.0) g/dl Hct 42.0 (42.0-52.0) % MCV 91.9 (80.0-98.0) fL MCH 32.8 (27.0-33.0) pg MCHC 35.7 (31.0-36.0) g/dl RDW 12.8 (11.0-16.0) % Plt Count 262 (160-400) X10*3/uL MPV 10.3 (9.4-12.4) fL Immature Gran % (Auto) 0.2 (0.0-0.4) % Neut % (Auto) 58.8 (45-73) % Lymph % (Auto) 27.0 (20-40) % [place]mort[place] % (Auto) 11.5 H (2-11) % Eos % (Auto) 1.6 (0-4) % Baso % (Auto) 0.9 (0-2) % Lymph # (Auto) 2.4 (1.2-4.9) X10*3/uL [place]morton # (Auto) 1.0 (0.1-1.2) X10*3/uL Eos # (Auto) 0.1 (0.0-0.4) X10*3/uL Baso # (Auto) 0.1 (0.0-0.2) X10*3/uL Abs Immat Gran (auto) 0.02 (0.00-0.03) X10*3/uL Absolute Neuts (auto) 5.3 (2.0-8.3) x10*3/uL Absolute Nucleated RBC 0.000 (0.0-0.012) X10*3/uL Nucleated RBC % (auto) 0.0 (0.0-0.2) /100WBC Sodium 140 (135-145) mmol/L Potassium 4.5 D (3.3-5.1) mmol/L Chloride 106 (96-108) mmol/L Carbon Dioxide 23 (22-29) mmol/L Anion Gap 16 (12-20) BUN 13 (9-16) mg/dL Creatinine 1.11 (0.5-1.4) mg/dL Estim Creat Clear Calc 65.6 Estimated GFR > 60 Random Glucose 84 (60-115) mg/dL Calcium 9.6 (8.4-10.2) mg/dL Total Bilirubin 0.4 (0.0-1.0) mg/dL AST 30 (5-37) U/L ALT 31 (0-40) U/L Alkaline Phosphatase 87 (39-117) U/L Troponin I High Sens < 2.7 < 2.7 (<3.5-35.0) ng/L Total Protein 7.7 (6.5-8.0) g/dL Albumin 4.3 (3.5-5.0) g/dL Influenza Type A (PCR) NEGATIVE (Negative) Influenza Type B (PCR) NEGATIVE (Negative) RSV RNA Qual (PCR) NEGATIVE (Negative) SARS-CoV-2 RNA (RT-PCR) NEGATIVE (Negative) Independent Interpretation I performed an independent interpretation of an: EKG Interpretation: Sinus rhythm with first-degree AV block, HR-81, no STEMI, WV-216, QRS/QTC is within normal limits. There are no acute changes when compared to prior EKG from March/2023. Radiology Impression Discussion of test interpretation with radiology: I have reviewed the radiologist's reading. Radiologist Impression: Please see the discussion External Record Review External record reviewed: Inpatient record, Outpatient record, Prior outpatient labs and Prior outpatient radiology Chronic Conditions Anxiety, chronic pain Critical Care Time Critical Care Time Critical Care Time: Yes Total Critical Care Time: 30 Attestation: I personally attest to this time spent taking care of the patient. Discharge Plan Discharge Clinical Impression: Chest pain due to GERD Patient Disposition: Home, Self-Care Instructions: Diet for Stomach Ulcers and Gastritis (ED), Gastroesophageal Reflux Disease (ED) Additional Instructions: Please follow-up with your primary care doctor in the next 1-2 days. Return to the ER for any worsening symptoms. Prescriptions: New omeprazole 40 mg capsule,delayed release(DR/EC) 40 mg PO DAILY Qty: 30 0RF No Action fluoxetine 40 mg capsule 1 cap PO QAM gabapentin 800 mg tablet 1 tab PO TID dicyclomine 20 mg tablet 1 tab PO TID trazodone 150 mg tablet 1 tab PO BEDTIME atorvastatin 40 mg Tablet 40 mg PO DAILY acetaminophen 500 mg tablet 500 mg PO Q6H PRN (Reason: pain) Qty: 30 0RF cyclobenzaprine 10 mg tablet 10 mg PO BEDTIME PRN (Reason: muscle spasm) Qty: 10 0RF simethicone [Gas Relief (simethicone)] 180 mg capsule 180 mg PO DAILY Referrals: Jules Escalona MD [Primary Care Provider] - Print Language: Macedonian
[2023-09-17] MEDS: Magnesium Hydrox/Alum Hydrox 30 ML ORAL.SUSP PO (22:58)
[2023-09-17] MEDS: Sucralfate Oral Suspension 1 GM/10 ML ORAL.SUSP PO (22:58)
[2023-09-17] MEDS: Lidocaine HCl Viscous 2 % 15 ML SOLUTION 10 ML MUCOUS MEM (22:58)
[2023-09-17 23:00] VITALS: BP 124/84; PULSE 74; RESP 18; TEMP 36.8; O2SAT 98
== END 2023-09-17 23:01 | disposition home or self-care (01) ==
PROVIDERS: Emergency Medicine; Emergency Provider Student in an Organized Health Care Education/Training Program; PCP Internal Medicine
DX: K21.9 Gastro-esophageal reflux disease without esophagitis (principal); Z03.818 Encounter for observation for suspected exposure to other biological agents ruled out
CPT/HCPCS: 0241U; 36415; 71045; 80053; 84484; 85025; 93005; 99283; 99285

== ENCOUNTER → 2023-09-17 13:12 | Outpatient (BNV) | payer OTHER, SELFPAY | PROVIDERS: Visit Provider Internal Medicine Cardiovascular Disease | DX: R94.31 Abnormal electrocardiogram [ECG] [EKG] (principal); R07.9 Chest pain, unspecified | CPT/HCPCS: 93010 ==

== ENCOUNTER 2023-10-21 09:02 | Outpatient (AMB) | payer OTHER, SELFPAY ==
--- NOTE | 2023-10-21 09:03 | A.OFFVIS_ITS ---
Vital Signs 10/21/23 09:04 Height 5 ft 4 in Weight 180 lb BMI 30.9 BP 140/94 H Blood Pressure Location Rt brachial Position Sitting Pulse 90 Intake Visit Reasons: 6 month recall colonoscopy Intake Note: This patient presents for a six month recall colonoscopy. Pt c/o; reports rectal pain, reports occasionally notices blood in stool, reports acid reflux. Watch Adjuster Required: Yes Watch Adjuster Language: Dietetic Tech Name: Linda Information Interpreted: non-clinical & clinical Accompanied by: Self / Same As Patient Allergies phenytoin [From DILANTIN] Allergy (Intermediate, Verified 10/21/23 09:11) NAUSEA buprenorphine [Belbuca] Allergy (Unknown, Verified 10/21/23 09:11) nausea tramadol [TRAMADOL] Allergy (Unknown, Verified 10/21/23 09:11) UNABLE TO SLEEP , AGITATION, restless leg syndrome diphenhydramine Allergy (Verified 10/21/23 09:11) RLS, shaky,agitation Medication List - Last Reconciled 10/21/23 by Keith Franklin MD acetaminophen 500 mg PO Q6H PRN atorvastatin 40 mg PO DAILY cyclobenzaprine 10 mg PO BEDTIME PRN dicyclomine 1 tab PO TID fluoxetine 1 cap PO QAM gabapentin 1 tab PO TID omeprazole 40 mg PO DAILY simethicone (Gas Relief (simethicone)) 180 mg PO DAILY trazodone 1 tab PO BEDTIME HPI HPI 6 month recall colonoscopy: Details: 63-year-old male here to schedule for follow-up colonoscopy. He had undergone a colonoscopy last June, and was noted to have 2 large polyps in the cecum. This were removed with multiple bites of the forceps and had tubular adenomas She had other small polyps in the colon. However in view of the flat polyps in the cecum, I had recommended repeating the colonoscopy in 6 months He currently denies significant GI complaints. He does state he has some chronic constipation and says he has occasional abdominal pain diffusely. 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) Alcohol intake: never Comment: trying to sleep Patient Tobacco Use Status: Former Tobacco user Tobacco use type: Cigarette Second Hand Smoke Exposure: No service: No Current occupational status: unemployed and disabled Current occupation: Right handed Review of Systems Const Denies chills and Denies fever(s) Card Denies chest pain, Denies dyspnea and Denies dyspnea on exertion Resp Denies cough, Denies dyspnea and Denies dyspnea on exertion GI Denies hematochezia and Denies change in bowel habits Denies hematuria and Denies difficulty urinating Musc Reports back pain, Reports arthralgias and Reports limited range of motion Neuro Denies focal weakness and Denies convulsions Psych Denies depression and Denies mood swings Physical Exam Vital Signs: Last Vital Signs Pulse 90 10/21/23 09:04 BP 140/94 H 10/21/23 09:04 BMI result Body Mass Index 30.9 Const Other: Using a walker General: comfortable and no acute distress Orientation/consciousness: patient oriented x3 Neck Neck: Yes no lymphadenopathy Resp Auscultation: clear to auscultation bilaterally Cardio Rhythm: regular rhythm GI Palpation (GI): Soft to palpation, nontender and no guarding Neuro General: patient oriented x3 Assessment & Plan Assessment & Plan (1) Tubular adenoma of colon: Code(s): D12.6 - Benign neoplasm of colon, unspecified Category: Medical Plan: He had flat polyps in the cecum on colonoscopy last June,. I recommended a short interval follow-up colonoscopy. I reviewed with him the technique of this procedure. I explained the risks including but not limited to bleeding, infections and perforation, as well as the benefits and alternatives He says he still remembers the procedure. He understands and agrees to proceed. Coding Level of Care Code Est Pt Level 3 (11232) Diagnoses Tubular adenoma of colon D12.6
[2023-10-21 09:04] VITALS: BP 140/94; PULSE 90; BMI 30.9
== END 2023-10-21 09:19 | disposition home or self-care (01) ==
PROVIDERS: Visit Provider Surgery
DX: D12.6 Benign neoplasm of colon, unspecified (principal)
CPT/HCPCS: 99213

== ENCOUNTER → 2023-10-21 09:02 | Outpatient (BNVA) | payer OTHER, SELFPAY | PROVIDERS: Visit Provider Surgery | DX: D12.6 Benign neoplasm of colon, unspecified (principal) | CPT/HCPCS: 99212 ==

== ENCOUNTER 2023-11-19 09:58 | Emergency (ER) | payer OTHER, SELFPAY ==
--- NOTE | ~2023-11-19 | XR_ITS ---
EXAMINATION: XR PELVIS XR LUMBAR SPINE CLINICAL INFORMATION: Pain. Debilitating low back pain. COMPARISON: CT of lumbar spine from 04/28/2023. Radiographs of lumbar spine from 04/28/2023. TECHNIQUE: Lumbar spine, 3 views Pelvis, AP view FINDINGS: Lumbar spine: Transitional lumbosacral anatomy. The L5 vertebra has prominent transverse processes and the right transverse process is fused to the sacrum. There is chronic mild dextroscoliosis of the lower thoracic and lumbar spine with apex of curvature at L1. The vertebral body heights are maintained. No acute fracture. Small anterior vertebral osteophytes are seen at multiple levels. At L3-L4, there is mild facet arthropathy, mild discovertebral degenerative change with vertebral osteophyte formation and 0.2 cm of degenerative anterolisthesis of L3 on L4. Status post discectomy and spinal fusion at L4-5 with bone graft is incorporated into the vertebral endplates at L4-5. The bilateral transpedicular screws and posterior rods are well-positioned. There is chronic grade 1 anterolisthesis of L4 on L5. No fracture or osteolysis around the hardware. Pelvis: The osseous pelvic ring is intact and alignment is normal the pubic stenosis, hips and sacroiliac joints. Sacroiliac joints are unremarkable. Mild narrowing of superior joint space and degenerative. An old small ossicle seen at the lateral aspect of the left acetabulum. There are no suspicious bone lesions. The soft tissues are unremarkable. XR/XR lumbar spine 2-3V IMPRESSION: * No acute radiographic abnormalities in the lumbosacral spine or pelvis. * Mild dextroscoliosis of the lower thoracic and lumbar spine. * No evidence of complications from the L4-L5 spinal fusion. No loosening of the spinous posterior spinal fusion hardware. * Mild osteoarthrosis of the hips.
--- NOTE | ~2023-11-19 | XR_ITS ---
EXAMINATION: XR PELVIS XR LUMBAR SPINE CLINICAL INFORMATION: Pain. Debilitating low back pain. COMPARISON: CT of lumbar spine from 04/28/2023. Radiographs of lumbar spine from 04/28/2023. TECHNIQUE: Lumbar spine, 3 views Pelvis, AP view FINDINGS: Lumbar spine: Transitional lumbosacral anatomy. The L5 vertebra has prominent transverse processes and the right transverse process is fused to the sacrum. There is chronic mild dextroscoliosis of the lower thoracic and lumbar spine with apex of curvature at L1. The vertebral body heights are maintained. No acute fracture. Small anterior vertebral osteophytes are seen at multiple levels. At L3-L4, there is mild facet arthropathy, mild discovertebral degenerative change with vertebral osteophyte formation and 0.2 cm of degenerative anterolisthesis of L3 on L4. Status post discectomy and spinal fusion at L4-5 with bone graft is incorporated into the vertebral endplates at L4-5. The bilateral transpedicular screws and posterior rods are well-positioned. There is chronic grade 1 anterolisthesis of L4 on L5. No fracture or osteolysis around the hardware. Pelvis: The osseous pelvic ring is intact and alignment is normal the pubic stenosis, hips and sacroiliac joints. Sacroiliac joints are unremarkable. Mild narrowing of superior joint space and degenerative. An old small ossicle seen at the lateral aspect of the left acetabulum. There are no suspicious bone lesions. The soft tissues are unremarkable. XR/XR pelvis 1-2V IMPRESSION: * No acute radiographic abnormalities in the lumbosacral spine or pelvis. * Mild dextroscoliosis of the lower thoracic and lumbar spine. * No evidence of complications from the L4-L5 spinal fusion. No loosening of the spinous posterior spinal fusion hardware. * Mild osteoarthrosis of the hips.
[2023-11-19 10:08] VITALS: BP 150/94; PULSE 79; O2SAT 99
[2023-11-19 11:14] VITALS: BP 132/89; PULSE 84; RESP 17; TEMP 37; O2SAT 97; BMI 29.5
--- NOTE | 2023-11-19 11:16 | ED_ITS ---
HPI - General Adult General Chief complaint: Extremity Problem Stated complaint: HOLLY HIP PAIN X2-3 MONTHS PER EMS Time Seen by Provider: 11/19/23 12:14 History of Present Illness ED Provider: Parker FAITH narrative: The patient is a 63-year-old male who seems to have a long history of problems with back pain. He says that he had back surgery in 2016. He says that since then he has also had other intervention such as injections and he also seems to describe having had some kind of an implanted device, possibly a Tens unit. The patient says that recent interventions that he has had either with injections or with the implanted device have not been helpful and his pain has been getting gradually worse. He says that he has an appointment with a back doctor at this hospital in a few weeks and he is looking forward to that appointment. He says that he recently saw his PCP about his back pain and was prescribed baclofen this was no help. He says that he uses an electric scooter to get around his apartment. He also says that his daughter is a [employer] who helps take care of him. Today he felt the pain was so bad that he really could not move around at all and had to call an ambulance to come to the hospital. No fever, sweats, chills. No bowel or bladder control problems. Related Data Home Medications ?Medication ?Instructions ?Recorded ?Confirmed dicyclomine 20 mg tablet 1 tab PO TID 04/20/20 10/21/23 fluoxetine 40 mg capsule 1 cap PO QAM 04/20/20 10/21/23 gabapentin 800 mg tablet 1 tab PO TID 04/20/20 10/21/23 trazodone 150 mg tablet 1 tab PO BEDTIME 04/20/20 10/21/23 simethicone 180 mg capsule (Gas 180 mg PO DAILY 09/20/21 10/21/23 Relief (simethicone)) atorvastatin 40 mg tablet 40 mg PO DAILY 08/13/22 10/21/23 Previous Rx's ?Medication ?Instructions ?Recorded acetaminophen 500 mg tablet 500 mg PO Q6H PRN pain #30 tabs 03/29/23 cyclobenzaprine 10 mg tablet 10 mg PO BEDTIME PRN muscle spasm 03/29/23 #10 tabs omeprazole 40 mg capsule,delayed 40 mg PO DAILY #30 caps 09/17/23 release sodium,potassium,mag sulfates 17.5 See Rx Instructions PO .COMPLEX 10/21/23 gram-3.13 gram-1.6 gram oral soln #354 mL (Suprep Bowel Prep Kit) cyclobenzaprine 10 mg tablet 10 mg PO TID PRN muscle spasm #15 11/19/23 tabs morphine 15 mg immediate release 15 mg PO Q6H PRN pain #18 tabs 11/19/23 tablet Allergies Allergy/AdvReac Type Severity Reaction Status Date / Time phenytoin [From DILANTIN] Allergy Intermediate NAUSEA Verified 11/19/23 11:16 buprenorphine [Belbuca] Allergy Unknown nausea Verified 11/19/23 11:16 tramadol [TRAMADOL] Allergy Unknown UNABLE TO Verified 11/19/23 11:16 SLEEP , AGITATION, restless leg syndrome diphenhydramine Allergy RLS, Verified 11/19/23 11:16 shaky,agitation Review of Systems 2 Review of Systems: Yes all other systems are reviewed and are negative [facility] Past Medical History Medical History Tubular adenoma of colon Colon cancer screening Chronic abdominal pain Anxiety Hyperlipidemia Chronic back pain Chronic pain Surgical History History of colonoscopy History of back surgery H/O colonoscopy Hx of abdominal surgery Social History Social History Are you a primary child care nurse to a significant other at home: No Do you presently have visiting nurse or other home services: Yes ([employer] 51 hours per month) Alcohol intake: never Comment: trying to sleep Patient Tobacco Use Status: Former Tobacco user Tobacco use type: Cigarette Second Hand Smoke Exposure: No Advance Directives: Yes Advance Directives Information Provided: Yes Advance Directives on File: No service: No Current occupational status: unemployed and disabled Current occupation: Right handed Physical Exam ED Vital Signs: Vital Signs - 24 hr 11/19/23 11:14 11/19/23 12:15 11/19/23 14:30 Temperature 98.6 F 98.0 F 97.3 F Pulse Rate 84 78 69 Respiratory Rate 17 18 18 Blood Pressure 132/89 120/82 139/85 Pulse Oximetry 97 97 97 Oxygen Delivery Method Room Air Room Air Room Air 11/19/23 15:49 Temperature 97.3 F Pulse Rate 69 Respiratory Rate 18 Blood Pressure 139/85 Pulse Oximetry 97 Oxygen Delivery Method Room Air BMI result Body Mass Index 29.5 Const Other: The patient was sitting in a wheelchair. He was awake and alert. Looks as if he might be somewhat uncomfortable. Does not appear acutely ill. HENMT Other: Face is symmetrical. Mucous membranes moist. Eyes Other: Pupils are round equal, conjunctivae are clear Neck Other: Moving his neck easily. No JVD. Resp Effort & Inspection: normal respiratory effort Auscultation: clear to auscultation bilaterally Cardio Rate: regular rate Rhythm: regular rhythm Heart sounds: S1 normal heart sound present and S2 normal heart sound present GI Other: Abdomen is soft and nontender Back/Spine/Pelvis Other: The patient has a small surgical scar in the midline of his back in her upper lumbar region. He has diffuse tenderness in the midline and paraspinally. Skin Other: Skin is dry and unremarkable Neuro Other: The patient is awake and alert with a normal mental status. Cranial nerves seem intact. He has 2+ reflexes at the knees and 1+ reflexes at the ankles. Toes go down bilaterally. He seems to have intact strength sensation in the lower extremities. However he clearly has a lot of pain when he tries to weight bear which makes gait assessment difficult. Extrem Other: No calf swelling or tenderness, no asymmetry Course Course Course Narrative: RME, this is a rapid medical exam performed by Tarun Wiseman please refer to primary provider for complete H&P- 63-year-old male with past medical history significant for hyperlipidemia, chronic back pain, GERD presents for evaluation of bilateral hip pain for last 2-3 months. He has seen his primary doctor and prescribed muscle relaxers without any improvement. Plan for x-rays to evaluate for arthritis versus avascular necrosis Medications Administered Discontinued Medications Generic Name Dose Route Start Last Admin Trade Name Freq PRN Reason Stop Dose Admin Acetaminophen 975 mg 11/19/23 12:42 11/19/23 13:20 Acetaminophen 325 Mg Tablet PO 11/19/23 12:43 975 mg ONCE ONE Administration Ketorolac Tromethamine 30 mg 11/19/23 12:42 11/19/23 13:20 Ketorolac Tromethamine 30 Mg/Ml Vial IM 11/19/23 12:43 30 mg ONCE ONE Administration Morphine Sulfate 30 mg 11/19/23 14:30 11/19/23 14:38 Morphine Sulfate Immed Release 15 Mg Tablet PO 11/19/23 14:31 30 mg ONCE ONE Administration Medical Decision Making Medical Decision Making [facility] Narrative: The patient is a 63-year-old male who seems to have a long history of problems with back pain. He has had previous lower back surgery. He says he has seen pain specialists and has had injections in his back. He also describes having some kind of an implanted device to help with his back pains. He feels that his pains have been worsening recently and the recent interventions have not been very helpful. He says he has an appointment sometime soon with a new back doctor but he can not tell me when that appointment is. He also says that he was recently prescribed baclofen without any improvement. On my exam the patient clearly has a lot of discomfort when he moves around but he otherwise seems neurologically intact. He does not describe any red flags for his back pain. He was initially given a dose of ketorolac and acetaminophen without improvement in his pain. He was then given 30 mg of oral immediate release morphine. His pain was better and he was then able to walk with a walker. I spoke to our case filler. The patient is connected with the [facility]. Our case filler will send a message to a case filler at [facility] to help coordinate services for this person. In the meantime I will send a prescription for MSIR tablets as well as cyclobenzaprine. Lab Data 11/19/23 14:34 11/19/23 14:34 Labs: Lab Results 11/19/23 Range/Units 14:34 WBC 9.0 (4.8-10.8) X10*3/uL RBC 4.52 L (4.60-5.80) X10*6/uL Hgb 14.7 (14.0-18.0) g/dl Hct 42.3 (42.0-52.0) % MCV 93.6 (80.0-98.0) fL MCH 32.5 (27.0-33.0) pg MCHC 34.8 (31.0-36.0) g/dl RDW 13.3 (11.0-16.0) % Plt Count 266 (160-400) X10*3/uL MPV 10.1 (9.4-12.4) fL Immature Gran % (Auto) 0.3 (0.0-0.4) % Neut % (Auto) 56.7 (45-73) % Lymph % (Auto) 31.5 (20-40) % Stoddard % (Auto) 9.1 (2-11) % Eos % (Auto) 1.4 (0-4) % Baso % (Auto) 1.0 (0-2) % Lymph # (Auto) 2.8 (1.2-4.9) X10*3/uL Stoddard # (Auto) 0.8 (0.1-1.2) X10*3/uL Eos # (Auto) 0.1 (0.0-0.4) X10*3/uL Baso # (Auto) 0.1 (0.0-0.2) X10*3/uL Abs Immat Gran (auto) 0.03 (0.00-0.03) X10*3/uL Absolute Neuts (auto) 5.1 (2.0-8.3) x10*3/uL Absolute Nucleated RBC 0.000 (0.0-0.012) X10*3/uL Nucleated RBC % (auto) 0.0 (0.0-0.2) /100WBC Sodium 142 (135-145) mmol/L Potassium 4.2 (3.3-5.1) mmol/L Chloride 105 (96-108) mmol/L Carbon Dioxide 28 (22-29) mmol/L Anion Gap 13 (12-20) BUN 7 L (9-16) mg/dL Creatinine 0.88 (0.5-1.4) mg/dL Estim Creat Clear Calc 81.0 Estimated GFR > 60 Random Glucose 97 (60-115) mg/dL Calcium 9.5 (8.4-10.2) mg/dL Total Bilirubin 0.4 (0.0-1.0) mg/dL Direct Bilirubin 0.1 (0.0-0.5) mg/dL AST 32 (5-37) U/L ALT 38 (0-40) U/L Alkaline Phosphatase 89 (39-117) U/L Total Protein 7.2 (6.5-8.0) g/dL Albumin 4.1 (3.5-5.0) g/dL Discharge Plan Discharge Clinical Impression: Low back pain radiating to left lower extremity Patient Disposition: Home, Self-Care Additional Instructions: To try to help your pain you should probably take all of the following: Take 2 extra-strength acetaminophen (Tylenol) up to 3 times a day. Take 400 or 600 mg of ibuprofen every 6 hours as needed. I have also sent a prescription for a muscle relaxant called cyclobenzaprine that you may take up to 3 times a day. And additionally I have sent a prescription for morphine tablets that you may use if necessary. I would recommend that you use your walker rather than your cane when you are walking around. Please follow up soon with your regular doctor. Our case filler has also contacted [facility] to let them know that you are having so much trouble. Also keep your appointment with the back doctor. Return to the emergency room if significantly worse. Prescriptions: New cyclobenzaprine 10 mg tablet 10 mg PO TID PRN (Reason: muscle spasm) Qty: 15 0RF morphine 15 mg tablet 15 mg PO Q6H PRN (Reason: pain) Qty: 18 0RF Rx Instructions: Partial Fill upon patient request. No Action fluoxetine 40 mg capsule 1 cap PO QAM gabapentin 800 mg tablet 1 tab PO TID dicyclomine 20 mg tablet 1 tab PO TID trazodone 150 mg tablet 1 tab PO BEDTIME atorvastatin 40 mg Tablet 40 mg PO DAILY acetaminophen 500 mg tablet 500 mg PO Q6H PRN (Reason: pain) Qty: 30 0RF cyclobenzaprine 10 mg tablet 10 mg PO BEDTIME PRN (Reason: muscle spasm) Qty: 10 0RF omeprazole 40 mg capsule,delayed release(DR/EC) 40 mg PO DAILY Qty: 30 0RF simethicone [Gas Relief (simethicone)] 180 mg capsule 180 mg PO DAILY sodium,potassium,mag sulfates [Suprep Bowel Prep Kit] 17.5-3.13-1.6 gram recon soln See Rx Instructions PO .COMPLEX Qty: 354 0RF Rx Instructions: DILUTE; drink full amount early evening before AND next morning at least 2 hr before procedure; follow w 960 mL water PO Referrals: Jules Escalona MD [Primary Care Provider] - (back pain) Interventions: ED Discharge Assessment Last Done: 11/19/23 15:49 Discharge Date/Time: 11/19/23 15:49 Print Language: Estonian
[2023-11-19 12:15] VITALS: BP 120/82; PULSE 78; RESP 18; TEMP 36.7; O2SAT 97
[2023-11-19] MEDS: Acetaminophen 325 MG TABLET 975 MG PO (13:20)
[2023-11-19] MEDS: Ketorolac Tromethamine 30 MG/ML VIAL IM (13:20)
[2023-11-19 14:30] VITALS: BP 139/85; PULSE 69; RESP 18; TEMP 36.3; O2SAT 97
[2023-11-19] MEDS: Morphine Sulfate Immed Release 15 MG TABLET 30 MG PO (14:38)
[2023-11-19 14:41] LABS: MANUAL DIFF FLAG NO
[2023-11-19 14:45] LABS: Basophils Absolute Auto 0.1 X10*3/uL (0.0-0.2); Eosinophils Absolute Auto 0.1 X10*3/uL (0.0-0.4); Eosinophils Percent Auto 1.4 % (0-4); Hematocrit 42.3 % (42.0-52.0); Hemoglobin 14.7 g/dl (14.0-18.0); Imm Gran Abs Auto 0.03 X10*3/uL (0.00-0.03); Imm Gran Pct Auto 0.3 % (0.0-0.4); Lymphocytes Absolute Auto 2.8 X10*3/uL (1.2-4.9); Lymphocytes Percent Auto 31.5 % (20-40); Mean Corpuscular HGB Conc 34.8 g/dl (31.0-36.0); Mean Corpuscular Hemoglobin 32.5 pg (27.0-33.0); Mean Corpuscular Volume 93.6 fL (80.0-98.0); Mean Platelet Volume 10.1 fL (9.4-12.4); Monocytes Absolute Auto 0.8 X10*3/uL (0.1-1.2); Monocytes Percent Auto 9.1 % (2-11); Neutrophils Absolute Auto 5.1 x10*3/uL (2.0-8.3); Neutrophils Percent Auto 56.7 % (45-73); Platelet Count 266 X10*3/uL (160-400); Red Blood Count 4.52 X10*6/uL (4.60-5.80); Red Cell Distribution Width 13.3 % (11.0-16.0)
[2023-11-19 14:59] LABS: Alanine Aminotransferase 38 U/L (0-40); Albumin Level 4.1 g/dL (3.5-5.0); Alkaline Phosphatase 89 U/L (39-117); Anion Gap 13 (12-20); Aspartate Amino Transferase 32 U/L (5-37); Bilirubin Direct 0.1 mg/dL (0.0-0.5); Bilirubin Total 0.4 mg/dL (0.0-1.0); Blood Urea Nitrogen 7 mg/dL (9-16); Calcium 9.5 mg/dL (8.4-10.2); Carbon Dioxide 28 mmol/L (22-29); Chloride 105 mmol/L (96-108); Estimated Glomerular Filt Rate > 60; Glucose Random 97 mg/dL (60-115); Potassium 4.2 mmol/L (3.3-5.1); Sodium 142 mmol/L (135-145); Total Protein 7.2 g/dL (6.5-8.0)
--- NOTE | 2023-11-19 15:33 | MHC.CM.ED ---
Dr. Helms spoke with CM regarding plan of care for this patient. Provider does not feel patient needs STR, but has chronic back pain. Has seen Pain Management in the past. CM suggested pain management referral. ED provider cannot order pain management referral. CM called Jeannette at [facility] and requested a pain management referral. Jeannette will contact this patient's manager intensive care to arrange consult. Dr. Helms aware.
[2023-11-19 15:49] VITALS: BP 139/85; PULSE 69; RESP 18; TEMP 36.3; O2SAT 97
== END 2023-11-19 15:49 | disposition home or self-care (01) ==
PROVIDERS: Emergency Provider Emergency Medicine; PCP Internal Medicine
DX: M54.50 Low back pain, unspecified (principal); M79.669 Pain in unspecified lower leg; E78.5 Hyperlipidemia, unspecified; F41.9 Anxiety disorder, unspecified; Z79.899 Other long term (current) drug therapy
CPT/HCPCS: 36415; 72100; 72170; 80048; 80076; 85025; 96372; 99284; J1885

== ENCOUNTER 2023-11-29 07:46 | Day surgery (SDC) | payer OTHER, SELFPAY ==
[2023-11-27 07:55] VITALS: BMI 30.9
--- NOTE | 2023-11-27 13:00 | P.CONAN_ITS ---
Documented by User: Era Pratt NP 11/27/23 13:00 HPI - Anesthesia Eval Consult details Narrative: 63yo M for Colonoscopy possible Polypectomy PMFSH Active Problems Active Problems: All Active Problems Tubular adenoma of colon (Acute) Patellofemoral pain syndrome of left knee (Acute) Patellofemoral pain syndrome of right knee (Acute) Colon cancer screening (Acute) Chronic abdominal pain (Acute) Anxiety (Acute) Hyperlipidemia (Acute) Chronic back pain (Acute) Past Medical History Medical History Tubular adenoma of colon Colon cancer screening Chronic abdominal pain Anxiety Hyperlipidemia Chronic back pain Chronic pain Family History Family history of problems with anesthesia: No Surgical History Surgical History History of colonoscopy History of back surgery H/O colonoscopy Hx of abdominal surgery History of Problems with Anesthesia: No Social History Social History Are you a primary critical care nurse specialist to a significant other at home: No Do you presently have visiting nurse or other home services: Yes ([employer] 51 hours per month) Alcohol intake: never Comment: trying to sleep Patient Tobacco Use Status: Former Tobacco user Tobacco use type: Cigarette Second Hand Smoke Exposure: No Are you DNR?: No Advance Directives: No Advance Directives Information Provided: Yes service: No Current occupational status: unemployed and disabled Current occupation: Right handed Meds Allergies Allergy/AdvReac Type Severity Reaction Status Date / Time phenytoin [From DILANTIN] Allergy Intermediate NAUSEA Verified 11/19/23 11:16 buprenorphine [Belbuca] Allergy Unknown nausea Verified 11/19/23 11:16 tramadol [TRAMADOL] Allergy Unknown UNABLE TO Verified 11/19/23 11:16 SLEEP , AGITATION, restless leg syndrome diphenhydramine Allergy RLS, Verified 11/19/23 11:16 shaky,agitation Home Medications ?Medication ?Instructions ?Recorded ?Confirmed ?Last Taken ?Type dicyclomine 20 mg tablet 1 tab PO TID 04/20/20 10/21/23 Unknown History fluoxetine 40 mg capsule 1 cap PO QAM 04/20/20 10/21/23 Unknown History gabapentin 800 mg tablet 1 tab PO TID 04/20/20 10/21/23 Unknown History trazodone 150 mg tablet 1 tab PO BEDTIME 04/20/20 10/21/23 Unknown History simethicone 180 mg capsule (Gas 180 mg PO DAILY 09/20/21 10/21/23 Unknown History Relief (simethicone)) atorvastatin 40 mg tablet 40 mg PO DAILY 08/13/22 10/21/23 Unknown History Exam Height,Weight and Vital Signs: Height 5 ft 4 in Weight 81.647 kg Assessment and Plan Assessment Anesthesia Assessment: Chart Reviewed Final Anesthetic Review Family History of Problems with Anesthesia: No History of Problems with Anesthesia: No Documented by User: Jack Street MD 11/29/23 09:03 COUNTS INCLUDE 234 BEDS AT THE [facility] Past Medical History Medical History Tubular adenoma of colon Colon cancer screening Chronic abdominal pain Anxiety Hyperlipidemia Chronic back pain Chronic pain Surgical History Surgical History History of colonoscopy History of back surgery H/O colonoscopy Hx of abdominal surgery Social History Social History Are you a primary critical care nurse specialist to a significant other at home: No Do you presently have visiting nurse or other home services: Yes ([employer] 51 hours per month) Alcohol intake: never Comment: trying to sleep Patient Tobacco Use Status: Former Tobacco user Tobacco use type: Cigarette Second Hand Smoke Exposure: No Are you DNR?: No Advance Directives: No Advance Directives Information Provided: Yes service: No Current occupational status: unemployed and disabled Current occupation: Right handed Meds Allergies Allergy/AdvReac Type Severity Reaction Status Date / Time phenytoin [From DILANTIN] Allergy Intermediate NAUSEA Verified 11/19/23 11:16 buprenorphine [Belbuca] Allergy Unknown nausea Verified 11/19/23 11:16 tramadol [TRAMADOL] Allergy Unknown UNABLE TO Verified 11/19/23 11:16 SLEEP , AGITATION, restless leg syndrome diphenhydramine Allergy RLS, Verified 11/19/23 11:16 shaky,agitation Home Medications ?Medication ?Instructions ?Recorded ?Confirmed ?Last Taken ?Type dicyclomine 20 mg tablet 1 tab PO TID 04/20/20 10/21/23 Unknown History fluoxetine 40 mg capsule 1 cap PO QAM 04/20/20 10/21/23 Unknown History gabapentin 800 mg tablet 1 tab PO TID 04/20/20 10/21/23 Unknown History trazodone 150 mg tablet 1 tab PO BEDTIME 04/20/20 10/21/23 Unknown History simethicone 180 mg capsule (Gas 180 mg PO DAILY 09/20/21 10/21/23 Unknown H istory Relief (simethicone)) atorvastatin 40 mg tablet 40 mg PO DAILY 08/13/22 10/21/23 Unknown History Exam Airway Mallampati Class: II TM Dist: <=3cm Neck ROM: Full Loose/Missing/Broken Teeth: Yes, Upper and Lower Heart: ok Lungs: ok Assessment and Plan Assessment Anesthesia Assessment: Anesthesia Plan Discussed Final Anesthetic Review NPO: Yes ASA Class: II Final Preanesthetic Review: No Changes in Pt Med Stat, Meds/Allgs Chart Reviewed, Consent Obtained/Reviewed and Anes Risks/Benef Reviewed Patient Risk: Low Procedure Risk: Low Anesthetic Plan Anesthetic Plan: MAC: and Agree w/ Assess. and Plan Disposition: Standard PACU
[2023-11-29 07:48] VITALS: BP 134/87; PULSE 96; RESP 20; TEMP 36.3; O2SAT 97; BMI 31.1
--- NOTE | 2023-11-29 08:08 | MHC.SHP ---
Pre-Procedural Eval Section A - 24 Hr Update-Section A only Date of Service: 11/29/23 Section B - Complete if H&P > 30 days Chief Complaint: Benign neoplasm of colon, unspecified Details of Present Illness: History of flat polyps in the cecum otherwise denies GI complaints Relevant Social History: None Present Medications: see Short Stay Collaborative assessment Medical History: Significant History (Anxiety, hyperlipidemia, chronic back pain) Allergies: Allergies Allergy/AdvReac Type Severity Reaction Status Date / Time phenytoin [From DILANTIN] Allergy Intermediate NAUSEA Verified 11/19/23 11:16 buprenorphine [Belbuca] Allergy Unknown nausea Verified 11/19/23 11:16 tramadol [TRAMADOL] Allergy Unknown UNABLE TO Verified 11/19/23 11:16 SLEEP , AGITATION, restless leg syndrome diphenhydramine Allergy RLS, Verified 11/19/23 11:16 shaky,agitation Review of Systems Sugical H&P ROS: Negative: Constitution, Cardiovascular, Respiratory, Neurological, Psychiatric, Hem-Onc, Allergic/Immunologic, Gastrointestinal, Genitourinary, Musculoskeletal, Integumentary, Endocrine and Eyes/Ears/Nose/Throat Exam Surgical H&P Exam: Normal: HEENT, Normal: Heart, Normal: Lungs, Normal: Extremities, Normal: Abdomen, Normal: Skin and Normal: Neurological Plan Diagnosis/Plan: Unchanged I have reviewed the history and physical and performed a pertinent physical examination on my patient. No changes have occurred unless specified. Time Spent With Patient Time: Total time managing care of this patient today ____ minutes.
[2023-11-29] MEDS: Lactated Ringers 1,000 ML 100 ML IVCONT (08:11)
--- NOTE | 2023-11-29 09:39 | W.PM.OPN ---
Operative Note Operative Note Date of Service: 11/29/23 Narrative: Preop diagnosis: hx of flat polyps in the cecum Postop Diagnosis: 1.Flat polyp in the cecum, about 1 cm in diameter 2.Diffuse diverticulosis Procedure: Colonoscopy, polypectomy using cold forceps x1 Surgeon: Keith Franklin MD The patient is a 63-year-old male who had undergone colonoscopy 6 months ago with note of 2 flat polyps in the cecum removed with cold forceps. In view of the size and flat nature ofh of the polyps, I would recommended repeating the colonoscopy within 6 months. He understood the technique of the planned procedure. He was aware of the risks, benefits, and alternatives The patient was brought to the operating room and placed in left lateral decubitus position under monitored anesthesia care. A surgical time-out was done. A full digital rectal exam was done and this did not reveal any significant anal lesions. The tip of the Olympus colonoscope was gently introduced through the anal orifice advanced with insufflation all the way to the cecum. The cecum was intubated. The cecum was identified by visualization of the ileocecal valve as well as the appendiceal orifice. Again, there was note of a flat polyp so much smaller this time, about 7 cm in diameter in the cecum. There was only 1 polyp seen. This was removed with multiple bites of cold forceps. The scope was gradually withdrawn with careful examination of the entire colonic mucosa being done with scope withdrawal. The patient had adequate bowel prep so it was unlikely that any lesion may have been missed. There was note of diffuse diverticulosis throughout the entire colon. The rectum was reached and there were no lesions seen. The anal canal was unremarkable. The scope was then withdrawn completely with desufflation The patient tolerated procedure well. There were no immediate complications. In view of the flat nature of the polyps and to ensure full removal, I will repeat his colonoscopy in 1 year depending on the path report.
[2023-11-29 09:45] VITALS: BP 109/58; PULSE 74; RESP 18; TEMP 36.2; O2SAT 94
[2023-11-29 10:00] VITALS: BP 114/62; PULSE 67; RESP 18; O2SAT 98
[2023-11-29 10:15] VITALS: BP 145/92; PULSE 68; RESP 18; O2SAT 98
[2023-11-29 10:30] VITALS: BP 137/78; PULSE 72; RESP 18; O2SAT 98
[2023-11-29] MEDS: Simethicone 40 MG/0.6 ML ORAL.SUSP PO (10:30)
[2023-11-29 10:45] VITALS: BP 131/86; PULSE 58; RESP 18; O2SAT 98
== END 2023-11-29 11:30 | disposition home or self-care (01) ==
PROVIDERS: PCP Internal Medicine; Visit Provider Surgery
PROC: 0DBE8ZZ Excision of Large Intestine, Via Natural or Artificial Opening Endoscopic (ICD-10-PCS; CPT 45380; principal; 2023-11-29 09:00)
DX: Z12.11 Encounter for screening for malignant neoplasm of colon (principal); Z86.010 Personal history of colon polyps; D12.0 Benign neoplasm of cecum; K57.30 Diverticulosis of large intestine without perforation or abscess without bleeding; K59.09 Other constipation; E78.5 Hyperlipidemia, unspecified; F41.9 Anxiety disorder, unspecified; G89.29 Other chronic pain; R10.9 Unspecified abdominal pain; M54.9 Dorsalgia, unspecified; Z88.5 Allergy status to narcotic agent; Z88.8 Allergy status to other drugs, medicaments and biological substances; Z79.899 Other long term (current) drug therapy; Z79.890 Hormone replacement therapy; Z87.891 Personal history of nicotine dependence; Z56.0 Unemployment, unspecified
CPT/HCPCS: 45380; 88305; J2704

== ENCOUNTER → 2023-11-29 07:46 | Outpatient (BNV) | payer OTHER, SELFPAY | PROVIDERS: PCP Internal Medicine; Visit Provider Surgery | DX: D12.6 Benign neoplasm of colon, unspecified (principal); Z86.010 Personal history of colon polyps | CPT/HCPCS: 45380 ==

== ENCOUNTER 2023-12-12 11:20 | Outpatient (AMB) | payer OTHER, SELFPAY ==
--- NOTE | 2023-12-12 11:21 | MHC.OFFVIS ---
Intake Visit Reasons: S/P Colonoscopy Intake Note: This patient presents for a post-op assessment status post Colonoscopy, polypectomy using cold forceps x1. Pt c/o; reports no complaints. Sawmill Worker Required: Yes Sawmill Worker Language: Missile Control Pilot Services: Sawmill Worker Present Sawmill Worker Name: Linda Information Interpreted: non-clinical & clinical Accompanied by: Self / Same As Patient Allergies phenytoin [From DILANTIN] Allergy (Intermediate, Verified 12/12/23 11:21) NAUSEA buprenorphine [Belbuca] Allergy (Unknown, Verified 12/12/23 11:21) nausea tramadol [TRAMADOL] Allergy (Unknown, Verified 12/12/23 11:21) UNABLE TO SLEEP , AGITATION, restless leg syndrome diphenhydramine Allergy (Verified 12/12/23 11:21) RLS, shaky,agitation HPI HPI S/P Colonoscopy: Details: He underwent colonoscopy last 11/29/2023 for history of of an adenoma in the cecum. He tolerated procedure well and currently denies significant complaints. [facility] Medical History Tubular adenoma of colon Colon cancer screening Chronic abdominal pain Anxiety Hyperlipidemia Chronic back pain Chronic pain Surgical History History of colonoscopy with polypectomy (~11/29/23) History of colonoscopy History of back surgery H/O colonoscopy Hx of abdominal surgery Social History Are you a primary plant care worker to a significant other at home: No Do you presently have visiting nurse or other home services: Yes ([employer] 51 hours per month) Alcohol intake: never Comment: trying to sleep Patient Tobacco Use Status: Former Tobacco user Tobacco use type: Cigarette Second Hand Smoke Exposure: No service: No Current occupational status: unemployed and disabled Current occupation: Right handed Review of Systems Const Denies chills and Denies fever(s) Card Denies chest pain, Denies dyspnea and Denies dyspnea on exertion Resp Denies cough, Denies dyspnea and Denies dyspnea on exertion GI Denies hematochezia and Denies change in bowel habits Denies hematuria and Denies difficulty urinating Musc Reports back pain, Reports arthralgias and Reports limited range of motion Neuro Denies focal weakness and Denies convulsions Psych Denies depression and Denies mood swings Physical Exam Const General: comfortable and no acute distress Resp Effort & Inspection: normal respiratory effort Cardio Rate: regular rate GI Palpation (GI): Soft to palpation, not firm and nontender Assessment & Plan Assessment & Plan (1) Tubular adenoma of colon: Code(s): D12.6 - Benign neoplasm of colon, unspecified Category: Medical Plan: Status post colonoscopy. He had a flat polyp again in the cecum measuring about 1 cm. This was removed with multiple bites of the cold forceps. In view of the flat nature of the polyp, I would recommend repeating the colonoscopy next year. I discussed this with him and he says he understands. Coding Level of Care Code Est Pt Level 2 (00245) Diagnoses Tubular adenoma of colon D12.6
== END 2023-12-12 11:35 | disposition home or self-care (01) ==
PROVIDERS: Visit Provider Surgery
DX: D12.0 Benign neoplasm of cecum (principal)
CPT/HCPCS: 99212

== ENCOUNTER → 2023-12-12 11:20 | Outpatient (BNVA) | payer OTHER, SELFPAY | PROVIDERS: Visit Provider Surgery | DX: D12.6 Benign neoplasm of colon, unspecified (principal) | CPT/HCPCS: 99212 ==

== ENCOUNTER 2023-12-23 10:34 | Outpatient (AMB) | payer OTHER, SELFPAY ==
--- NOTE | 2023-12-23 10:44 | A.OFFVIS_ITS ---
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 Patient reports pain has been present for about 4 months with his left hip being the worse. His pain radiates from the outside of his hip down to his knee as well as numbness and tingling. States no previous treatment such as therapy or injections. He was previously seen at [facility] and is here for a second opinion. 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 He was previously seen at [facility] and presents here today for a second opinion. He states he has pain in his bilateral hips with the left hip being the worse. His pain radiates from the outside of his hip down to his knee as well as numbness and tingling. He has not had any physical therapy or treatment in the past. He has tried gabapentin with no relief. [facility] Medical History Tubular adenoma of colon Colon cancer screening Chronic abdominal pain Anxiety Hyperlipidemia Chronic back pain Chronic pain Surgical History History of colonoscopy with polypectomy (~11/29/23) History of colonoscopy History of back surgery H/O colonoscopy Hx of abdominal surgery Social History Are you a primary congregational care pastor to a significant other at home: No Do you presently have visiting nurse or other home services: Yes ([employer] 51 hours per month) Alcohol intake: never Comment: trying to sleep Patient Tobacco Use Status: Former Tobacco user Tobacco use type: Cigarette Second Hand Smoke Exposure: No service: No Current occupational status: unemployed and disabled Current occupation: Right handed Review of Systems Const All systems reviewed & are unremarkable except as noted in HPI and below Physical Exam Const General: cooperative, healthy appearing, comfortable, no acute distress, well developed and alert Orientation/consciousness: patient oriented x3 HEENT Head: Yes normal to inspection, Yes normocephalic and Yes atraumatic Eyes General: appearance normal, both eyes and all related structures Resp Effort & Inspection: normal respiratory effort and able to speak in complete sentences Cardio Rate: regular rate Peripheral pulses: Peripheral pulses 2+ throughout GI Palpation (GI): Soft to palpation Skin Lesions: no lesions Rashes: no rashes Neuro General: patient oriented x3 Extrem Other: Bilateral hip: Normal to inspection, ambulates with a slight limp and walker at baseline. Has mild discomfort with internal and extension rotation of hip which extends into the low back. Tenderness along the SI joint on the left. No significant stiffness. Mild discomfort with hip flexion against resistance. NVI. Results Reviewed Results Reviewed: xrays pelvis 11/19/23 XR pelvis 1-2V IMPRESSION: * No acute radiographic abnormalities in the lumbosacral spine or pelvis. * Mild dextroscoliosis of the lower thoracic and lumbar spine. * No evidence of complications from the L4-L5 spinal fusion. No loosening of the spinous posterior spinal fusion hardware. * Mild osteoarthrosis of the hips. Assessment & Plan Assessment & Plan (1) Chronic back pain: Code(s): M54.9 - Dorsalgia, unspecified; G89.29 - Other chronic pain Category: Medical Plan We discussed options which include PT, NSAIDs and referrals to spine and physiatry. The patient will proceed with PT and NSAIDs. If symptoms persist, he will contact the office for a referral to physiatry. Orders: Orders PT Evaluation and Treatment Today G89.29 - Other chronic pain, M54.9 - Dorsalgia, unspecified Patient Instructions: Scribed for Emily Hensley PA-C, by Donavon Wallis outside medical sales representative, on 12/23/2023 at 10:45 AM EST.? I, Emily Hensley PA-C, have personally reviewed and agree with the information entered by the scribe. Coding Level of Care Code New Pt Level 3 (20064) Diagnoses Chronic back pain M54.9; G89.29
== END 2023-12-23 12:02 | disposition home or self-care (01) ==
PROVIDERS: PCP Internal Medicine; Visit Provider Physician Assistant
DX: M54.9 Dorsalgia, unspecified (principal); G89.29 Other chronic pain
CPT/HCPCS: 99203

== ENCOUNTER → 2023-12-23 10:34 | Outpatient (BNVA) | payer OTHER, SELFPAY | PROVIDERS: PCP Internal Medicine; Visit Provider Physician Assistant | DX: M54.9 Dorsalgia, unspecified (principal); G89.29 Other chronic pain | CPT/HCPCS: 99202 ==

== ENCOUNTER 2023-12-28 19:32 | Emergency (ER) | payer OTHER, SELFPAY ==
--- NOTE | 2023-12-28 | ECG_ITS ---
Test Reason : chest pain Blood Pressure : / mmHG Vent. Rate : 091 BPM Atrial Rate : 091 BPM P-R Int : 194 ms QRS Dur : 088 ms QT Int : 338 ms P-R-T Axes : 039 -56 028 degrees QTc Int : 415 ms Normal sinus rhythm Left axis deviation Cannot rule out Anterior infarct , age undetermined Abnormal ECG When compared with ECG of 17-SEP-2023 13:21, No significant change was found Referred By: Generic ED Physician Electronically Signed By:NANCY HOYOS
--- NOTE | ~2023-12-28 | XR_ITS ---
EXAMINATION: XR CHEST, 2 VIEWS CLINICAL INFORMATION: Chest pain. COMPARISON: 09/17/2023 TECHNIQUE: PA and lateral views of the chest were obtained. FINDINGS: Lungs are clear. No consolidation, pneumothorax, or pleural effusion. Cardiac and mediastinal contours are normal. Pulmonary vasculature is unremarkable. Trachea is midline. Degenerative disc disease in the thoracic spine. XR/XR chest 2V IMPRESSION: No acute cardiopulmonary findings.
[2023-12-28 19:41] VITALS: BP 131/79; PULSE 96; RESP 18; TEMP 36.9; O2SAT 96; BMI 30.7
--- NOTE | 2023-12-28 19:42 | ED_ITS ---
HPI - Chest Pain General Chief Complaint: Chest Pain Stated Complaint: chest pain unable to stand Time Seen by Provider: 12/28/23 21:17 Source: patient Mode of arrival: ambulatory Limitations: no limitations History of Present Illness ED Provider: justice FAITH narrative: Patient with multiple complaints with chronic back pain on baclofen complaining of chest pain abdominal pain back pain leg weakness using walker and cane at home follow up with pain clinic and back specialist patient had blood workup done prior to my evaluation which was normal had multiple CT scan of the abdomen last year which were also normal no shortness of breath Related Data Home Medications ?Medication ?Instructions ?Recorded ?Confirmed dicyclomine 20 mg tablet 1 tab PO TID 04/20/20 10/21/23 fluoxetine 40 mg capsule 1 cap PO QAM 04/20/20 10/21/23 gabapentin 800 mg tablet 1 tab PO TID 04/20/20 10/21/23 trazodone 150 mg tablet 1 tab PO BEDTIME 04/20/20 10/21/23 simethicone 180 mg capsule (Gas 180 mg PO DAILY 09/20/21 10/21/23 Relief (simethicone)) atorvastatin 40 mg tablet 40 mg PO DAILY 08/13/22 10/21/23 baclofen 10 mg tablet 10 mg PO TID 12/23/23 cetirizine 10 mg tablet 10 mg PO QAM 12/23/23 duloxetine 60 mg capsule,delayed 60 mg PO DAILY 12/23/23 release fluticasone propionate 50 1 spray intranasal DAILY 12/23/23 mcg/actuation nasal spray,suspension ondansetron 8 mg disintegrating 8 mg PO TID 12/23/23 tablet Previous Rx's ?Medication ?Instructions ?Recorded acetaminophen 500 mg tablet 500 mg PO Q6H PRN pain #30 tabs 03/29/23 cyclobenzaprine 10 mg tablet 10 mg PO BEDTIME PRN muscle spasm 03/29/23 #10 tabs omeprazole 40 mg capsule,delayed 40 mg PO DAILY #30 caps 09/17/23 release sodium,potassium,mag sulfates 17.5 See Rx Instructions PO .COMPLEX 10/21/23 gram-3.13 gram-1.6 gram oral soln #354 mL (Suprep Bowel Prep Kit) cyclobenzaprine 10 mg tablet 10 mg PO TID PRN muscle spasm #15 07/09/24 tabs morphine 15 mg immediate release 15 mg PO Q6H PRN pain #18 tabs 11/19/23 tablet Allergies Allergy/AdvReac Type Severity Reaction Status Date / Time phenytoin [From DILANTIN] Allergy Intermediate NAUSEA Verified 12/28/23 19:48 buprenorphine [Belbuca] Allergy Unknown nausea Verified 12/28/23 19:48 tramadol [TRAMADOL] Allergy Unknown UNABLE TO Verified 12/28/23 19:48 SLEEP , AGITATION, restless leg syndrome diphenhydramine Allergy RLS, Verified 12/28/23 19:48 shaky,agitation benafdryl Allergy Unknown Uncoded 12/23/23 10:45 Review of Systems 2 Review of Systems: Yes all other systems are reviewed and are negative PMFSH Past Medical History Medical History Tubular adenoma of colon Colon cancer screening Chronic abdominal pain Anxiety Hyperlipidemia Chronic back pain Chronic pain Surgical History History of colonoscopy with polypectomy (~11/29/23) History of colonoscopy History of back surgery H/O colonoscopy Hx of abdominal surgery Social History Social History Are you a primary career development consultant to a significant other at home: No Do you presently have visiting nurse or other 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 services: Yes (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) Alcohol intake: never Comment: trying to sleep Patient Tobacco Use Status: Former Tobacco user Tobacco use type: Cigarette Smoked in Last 30 Days: No Second Hand Smoke Exposure: No Use of substances other than those prescribed or required for medical reasons: No Advance Directives: No Advance Directives Information Provided: No Do you have a plan to hurt others: No Plan service: No Current occupational status: unemployed and disabled Current occupation: Right handed Physical Exam 2 Vital Signs: Vital Signs: Last Vital Signs Temp 0 F L 12/28/23 22:20 Pulse 0 L 12/28/23 22:20 Resp 0 L 12/28/23 22:20 BP 00/00 L 12/28/23 22:20 Pulse Ox 96 12/28/23 19:41 O2 Del Method Room Air 12/28/23 19:41 BMI result Body Mass Index 30.7 Appearance: Alert. Oriented X3. No acute distress. Eyes: No pallor or icterus ENT: Pharynx normal. Oral Mucosa moist Neck: Normal inspection. Neck supple. CVS: Normal heart rate and rhythm. Pulses normal. Respiratory: No respiratory distress. Equal air entry bilateral, no wheezing/rales/rhonchi Abdomen: Soft and nontender. Bowel sounds are present, no mass palpable, no CVA tenderness Skin: Skin warm and dry. Normal skin color. Normal skin turgor. Extremities: No lower extremity edema. No calf tenderness back: Diffuse lumbar tenderness SLR negative bilateral Neuro: Oriented X 3. No motor deficit. No sensory deficit.No cerebellar signs , cranial nerves II-XII intact Course Course Course Narrative: This is a rapid medical exam. Defer additional HPI, ROS, PE to primary provider 63-year-old male with a history of high cholesterol, GERD here with complaints of chest pain, abdominal pain, bilateral leg pain, dizziness with standing, nausea x 2 weeks as well as difficulty standing/ambulating. Will obtain EKG, CXR, viral testing, labs, orthos BARRY -Ludy Mane APRN Medications Administered Discontinued Medications Generic Name Dose Route Start Last Admin Trade Name Freq PRN Reason Stop Dose Admin Morphine Sulfate 15 mg 12/28/23 21:41 12/28/23 22:18 Morphine Sulfate Immed Release 15 Mg Tablet PO 12/28/23 21:42 Not Given ONCE ONE Medical Decision Making Medical Decision Making [facility] Narrative: Patient with chronic pain syndrome with pain in the back chest and abdomen workup negative also feel depressed denied any suicidal advised to follow up with his psychiatrist [phone] Patient's left ER without taking discharge instructions or any medications Lab Data [facility] Lab Attestation statement: I reviewed the patient's lab results. 12/28/23 19:57 12/28/23 19:57 Labs: Lab Results 12/28/23 Range/Units 19:57 WBC 9.1 (4.8-10.8) X10*3/uL RBC 4.32 L (4.60-5.80) X10*6/uL Hgb 14.2 (14.0-18.0) g/dl Hct 40.5 L (42.0-52.0) % MCV 93.8 (80.0-98.0) fL MCH 32.9 (27.0-33.0) pg MCHC 35.1 (31.0-36.0) g/dl RDW 13.2 (11.0-16.0) % Plt Count 252 (160-400) X10*3/uL MPV 9.8 (9.4-12.4) fL Immature Gran % (Auto) 0.4 (0.0-0.4) % Neut % (Auto) 48.6 (45-73) % Lymph % (Auto) 37.5 (20-40) % [place] % (Auto) 9.3 (2-11) % Eos % (Auto) 3.2 (0-4) % Baso % (Auto) 1.0 (0-2) % Lymph # (Auto) 3.4 (1.2-4.9) X10*3/uL [place] # (Auto) 0.9 (0.1-1.2) X10*3/uL Eos # (Auto) 0.3 (0.0-0.4) X10*3/uL Baso # (Auto) 0.1 (0.0-0.2) X10*3/uL Abs Immat Gran (auto) 0.04 H (0.00-0.03) X10*3/uL Absolute Neuts (auto) 4.4 (2.0-8.3) x10*3/uL Absolute Nucleated RBC 0.000 (0.0-0.012) X10*3/uL Nucleated RBC % (auto) 0.0 (0.0-0.2) /100WBC PT 9.6 L (11.1-13.3) SEC INR 0.8 L (0.9-1.1) Sodium 142 (135-145) mmol/L Potassium 4.0 (3.3-5.1) mmol/L Chloride 105 (96-108) mmol/L Carbon Dioxide 26 (22-29) mmol/L Anion Gap 15 (12-20) BUN 7 L (9-16) mg/dL Creatinine 0.97 (0.5-1.4) mg/dL Estim Creat Clear Calc 74.9 Estimated GFR > 60 Random Glucose 91 (60-115) mg/dL Calcium 9.4 (8.4-10.2) mg/dL Magnesium 2.0 (1.6-2.6) mg/dL Total Bilirubin 0.2 (0.0-1.0) mg/dL Direct Bilirubin < 0.2 (0.0-0.5) mg/dL AST 28 (5-37) U/L ALT 27 (0-40) U/L Alkaline Phosphatase 85 (39-117) U/L Total Creatine Kinase 221 H (38-174) U/L Troponin I High Sens < 2.7 (<3.5-35.0) ng/L Total Protein 7.4 (6.5-8.0) g/dL Albumin 4.1 (3.5-5.0) g/dL Lipase 32 (8-78) U/L Influenza Type A (PCR) NEGATIVE (Negative) Influenza Type B (PCR) NEGATIVE (Negative) RSV RNA Qual (PCR) NEGATIVE (Negative) SARS-CoV-2 RNA (RT-PCR) NEGATIVE (Negative) Independent Interpretation I performed an independent interpretation of an: EKG Interpretation: Normal sinus rhythm heart rate 91 beats per minute left axis deviation no acute STT wave changes no acute ischemia Discharge Plan Discharge Clinical Impression: Chronic back pain Patient Disposition: Home, Self-Care Instructions: Chronic Back Pain (DC) Additional Instructions: Continue baclofen and follow with your specialist/pain clinic Take Tylenol/Motrin for pain Prescriptions: No Action fluoxetine 40 mg capsule 1 cap PO QAM gabapentin 800 mg tablet 1 tab PO TID dicyclomine 20 mg tablet 1 tab PO TID trazodone 150 mg tablet 1 tab PO BEDTIME atorvastatin 40 mg Tablet 40 mg PO DAILY acetaminophen 500 mg tablet 500 mg PO Q6H PRN (Reason: pain) Qty: 30 0RF cyclobenzaprine 10 mg tablet 10 mg PO BEDTIME PRN (Reason: muscle spasm) Qty: 10 0RF omeprazole 40 mg capsule,delayed release(DR/EC) 40 mg PO DAILY Qty: 30 0RF cyclobenzaprine 10 mg tablet 10 mg PO TID PRN (Reason: muscle spasm) Qty: 15 0RF morphine 15 mg tablet 15 mg PO Q6H PRN (Reason: pain) Qty: 18 0RF Rx Instructions: Partial Fill upon patient request. simethicone [Gas Relief (simethicone)] 180 mg capsule 180 mg PO DAILY sodium,potassium,mag sulfates [Suprep Bowel Prep Kit] 17.5-3.13-1.6 gram recon soln See Rx Instructions PO .COMPLEX Qty: 354 0RF Rx Instructions: DILUTE; drink full amount early evening before AND next morning at least 2 hr before procedure; follow w 960 mL water PO cetirizine 10 mg tablet 10 mg PO QAM fluticasone propionate 50 mcg/actuation spray,suspension 1 spray intranasal DAILY duloxetine 60 mg capsule,delayed release(DR/EC) 60 mg PO DAILY baclofen 10 mg tablet 10 mg PO TID ondansetron 8 mg tablet,disintegrating 8 mg PO TID Interventions: ED Discharge Assessment Last Done: 12/28/23 22:20 Discharge Date/Time: 12/28/23 22:22 Print Language: Samoan
[2023-12-28 20:03] LABS: MANUAL DIFF FLAG NO
[2023-12-28 20:04] LABS: Basophils Absolute Auto 0.1 X10*3/uL (0.0-0.2); Eosinophils Absolute Auto 0.3 X10*3/uL (0.0-0.4); Eosinophils Percent Auto 3.2 % (0-4); Hematocrit 40.5 % (42.0-52.0); Hemoglobin 14.2 g/dl (14.0-18.0); Imm Gran Abs Auto 0.04 X10*3/uL (0.00-0.03); Imm Gran Pct Auto 0.4 % (0.0-0.4); Lymphocytes Absolute Auto 3.4 X10*3/uL (1.2-4.9); Lymphocytes Percent Auto 37.5 % (20-40); Mean Corpuscular HGB Conc 35.1 g/dl (31.0-36.0); Mean Corpuscular Hemoglobin 32.9 pg (27.0-33.0); Mean Corpuscular Volume 93.8 fL (80.0-98.0); Mean Platelet Volume 9.8 fL (9.4-12.4); Monocytes Absolute Auto 0.9 X10*3/uL (0.1-1.2); Monocytes Percent Auto 9.3 % (2-11); Neutrophils Absolute Auto 4.4 x10*3/uL (2.0-8.3); Neutrophils Percent Auto 48.6 % (45-73); Platelet Count 252 X10*3/uL (160-400); Red Blood Count 4.32 X10*6/uL (4.60-5.80); Red Cell Distribution Width 13.2 % (11.0-16.0); White Blood Count 9.1 X10*3/uL (4.8-10.8)
[2023-12-28 20:09] LABS: INTERNATIONAL NORM RATIO 0.8 (0.9-1.1); Prothrombin Time 9.6 SEC (11.1-13.3)
[2023-12-28 20:24] LABS: Alanine Aminotransferase 27 U/L (0-40); Albumin Level 4.1 g/dL (3.5-5.0); Alkaline Phosphatase 85 U/L (39-117); Anion Gap 15 (12-20); Aspartate Amino Transferase 28 U/L (5-37); Bilirubin Direct < 0.2 mg/dL (0.0-0.5); Bilirubin Total 0.2 mg/dL (0.0-1.0); Blood Urea Nitrogen 7 mg/dL (9-16); Calcium 9.4 mg/dL (8.4-10.2); Carbon Dioxide 26 mmol/L (22-29); Chloride 105 mmol/L (96-108); Creatinine Clr Calc Pharmacy 74.9; Estimated Glomerular Filt Rate > 60; Glucose Random 91 mg/dL (60-115); Lipase 32 U/L (8-78); Sodium 142 mmol/L (135-145); Total Protein 7.4 g/dL (6.5-8.0)
[2023-12-28 20:26] LABS: Troponin-I High Sensitivity < 2.7 ng/L (<3.5-35.0)
[2023-12-28 20:45] LABS: Influenza A PCR NEGATIVE (Negative); Influenza B PCR NEGATIVE (Negative); Resp Syncy Virus RNA Qual PCR NEGATIVE (Negative); SARS COV2 PCR INHOUSE NEGATIVE (Negative)
[2023-12-28 22:20] VITALS: BP 00/00; PULSE 0; RESP 0; TEMP -17.7; TEMP 0
== END 2023-12-28 22:22 | disposition home or self-care (01) ==
PROVIDERS: Nurse Practitioner Family; Emergency Provider Internal Medicine; PCP Psychiatry & Neurology Psychiatry
DX: G89.29 Other chronic pain (principal); M54.9 Dorsalgia, unspecified; R07.9 Chest pain, unspecified; E78.5 Hyperlipidemia, unspecified; Z87.891 Personal history of nicotine dependence; Z79.899 Other long term (current) drug therapy; Z03.818 Encounter for observation for suspected exposure to other biological agents ruled out
CPT/HCPCS: 0241U; 36415; 71046; 80048; 80076; 82550; 83690; 83735; 84484; 85025; 85610; 93005; 99284; 99285

== ENCOUNTER 2024-01-21 09:31 | Outpatient (REF) | payer OTHER, SELFPAY ==
--- NOTE | 2024-01-21 09:34 | EMG_ITS ---
Bilateral median and ulnar motor and sensory studies were performed. Bilateral radial sensory studies were performed. Bilateral median and lateral antecubital brachial sensory studies were performed and paraspinal muscles were tested with a needle. IMPRESSION: This is an unremarkable study with no evidence of entrapment neuropathy or a proximal lesion. MD MARCOS Miguel/JESSE / [phone]
== END 2024-01-21 09:32 | disposition home or self-care (01) ==
LOC: HO.NEURO 09:31
PROVIDERS: PCP Internal Medicine; Visit Provider Internal Medicine
DX: M25.531 Pain in right wrist (principal); M25.532 Pain in left wrist; M79.601 Pain in right arm
CPT/HCPCS: 95886; 95913

== ENCOUNTER 2024-02-17 10:00 | Outpatient (RCR) | payer OTHER, SELFPAY ==
--- NOTE | 2024-01-24 11:26 | MHC.PT.EP ---
[facility] [place] Office [place] Office [place] Office [address] Alton Jensen [address] [phone] F: [phone] F: [phone] F: [phone] F: [phone] Physical Therapy Plan of Care Date of Evaluation: 01/24/24 Date of Surgery: Diagnosis: dorsalgia other chronic pain Assessment: 63 y/o male referred to PT with dorsalgia. He presents with chronic LBP that radiates into B LE. PLOF includes using electric scooter in community and rolling walker in the house. 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 PMH significant for lumbar fusion L4-5. Examination was limited d/t high pain levels, however demonstrates poor functional mobility, poor seated/standing posture, decreased LE strength, decreased hip/lumbar ROM, impaired balance and increased pain. He was only able to stand for 2 seconds and ambulate 2 steps. Recommend PT 2x/week for 5 weeks to address impairments, implement HEP, and optimize functional mobility. Frequency and Duration: The patient will be seen 2x/week for 5 weeks Short Term Goals: 3 weeks I with HEP Able to stand > 1 minutes with pain < 4/10 Business Intelligence Engineer Goals: 5 weeks I with HEP and self management of sx Pt will be able to ambulate with walker > 5 minutes and pain < 4/10 Pt will improve LE strength to 4-/5 throughout LE to facilitate functional mobility Treatment Plan: Modalities to reduce pain, spasms and effusion. Manual therapy to restore motion and function. Therapeutic exercise to improve strength and flexibility. Neuromuscular re-education for posture and balance. Therapeutic activities to return to functional activities of daily living. Electronically signed by: Teri Alvarez PT Please sign and return to therapist. Thank you for your referral.
--- NOTE | 2024-03-23 14:38 | MHC.PT.DC ---
[facility] [place] Office [place] Office [place] Office [address] Alton Jensen [address] [phone] F: [phone] F: [phone] F: [phone] F: [phone] Physical Therapy Discharge Report Diagnosis: dorsalgia other chronic pain Date of Surgery: Date of Evaluation: 01/24/24 Date of Discharge: 03/23/24 Treatments to Date: 6 Cancellations to Date: 2 No Shows to Date: 1 Discharge Status: Independent with HEP Discharge Summary: Pt did not f/u with further visits. At time of last attended visit, he ambulated with rollator and demonstrated smoother transitional movements. He still would have sharp intermittent pain at times however. D/c at this time Electronically signed by: Teri Alvarez PT Please sign and return to therapist. Thank you for your referral.
== END 2024-03-23 14:39 | disposition home or self-care (01) ==
LOC: HO.PTCHIC 10:00
PROVIDERS: PCP Internal Medicine; Visit Provider Physician Assistant
DX: M54.9 Dorsalgia, unspecified (principal); G89.29 Other chronic pain
CPT/HCPCS: 97110; 97140; 97162

== ENCOUNTER 2024-03-25 08:29 | Outpatient (REF) | payer OTHER, SELFPAY ==
[2024-03-25 15:05] LABS: Alanine Aminotransferase 50 U/L (0-40); Albumin Level 4.2 g/dL (3.5-5.0); Alkaline Phosphatase 79 U/L (39-117); Anion Gap 13 (12-20); Aspartate Amino Transferase 66 U/L (5-37); Bilirubin Total 0.3 mg/dL (0.0-1.0); Blood Urea Nitrogen 12 mg/dL (9-16); Calcium 10.1 mg/dL (8.4-10.2); Carbon Dioxide 27 mmol/L (22-29); Chloride 104 mmol/L (96-108); Cholesterol 180 mg/dL (<200); Estimated Glomerular Filt Rate 58; Glucose Random 127 mg/dL (60-115); HDL Cholesterol 52 mg/dL (>40); LDL Cholesterol Calculated 82 mg/dL (<100); Potassium 4.2 mmol/L (3.3-5.1); Sodium 140 mmol/L (135-145); Total Protein 7.5 g/dL (6.5-8.0); Triglycerides 233 mg/dL (<150)
== END 2024-03-25 08:30 | disposition home or self-care (01) ==
LOC: HO.CHCLDS 08:29
PROVIDERS: Visit Provider Internal Medicine
DX: E78.2 Mixed hyperlipidemia (principal)
CPT/HCPCS: 36415; 80053; 80061

== ENCOUNTER 2024-03-26 09:45 | Outpatient (AMB) | payer OTHER, SELFPAY ==
[2024-03-26 09:47] VITALS: BMI 30.7
--- NOTE | 2024-03-26 09:47 | A.OFFVIS_ITS ---
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 Patient states he was scuba diving and was under water for too long causing low back pain radiating to his lower extremities. Reports numbness and tingling on both of his legs. He feels it is most pain to stand up or squat. He has been using a life alert system due to frequent falls, as well as a walker with seat and wheelchair. Patient has tried PT and Gabapentin with not much improvement of symptoms. Slasher Runner Required: Yes Slasher Runner Language: Shoe Cleaner Name: [id number] Allergies phenytoin [From DILANTIN] Allergy (Intermediate, Verified 03/26/24 09:48) NAUSEA buprenorphine [Belbuca] Allergy (Unknown, Verified 03/26/24 09:48) nausea tramadol [TRAMADOL] Allergy (Unknown, Verified 03/26/24 09:48) UNABLE TO SLEEP , AGITATION, restless leg syndrome diphenhydramine Allergy (Verified 03/26/24 09:48) RLS, shaky,agitation benafdryl Allergy (Uncoded 03/26/24 09:48) Unknown Medication List - Last Reconciled 03/26/24 by Sonia Blankenship MD atorvastatin 40 mg PO DAILY baclofen 10 mg PO TID cetirizine 10 mg PO QAM cyclobenzaprine 10 mg PO TID PRN dicyclomine 1 tab PO TID duloxetine 60 mg PO DAILY fluoxetine 1 cap PO QAM fluticasone propionate 50 mcg/actuation 1 spray intranasal DAILY gabapentin 1 tab PO TID omeprazole 40 mg PO DAILY ondansetron 8 mg PO TID simethicone (Gas Relief (simethicone)) 180 mg PO DAILY sodium,potassium,mag sulfates 17.5-3.13-1.6 gram (Suprep Bowel Prep Kit) DILUTE; drink full amount early evening before AND next morning at least 2 hr before procedure; follow w 960 mL water PO trazodone 1 tab PO BEDTIME HPI Comments Details: He says pain is more lateral back, goes down both legs, points to thighs, down to knees only, posterior. Only rarely it goes down to feet. Numbness on right thigh. He had lumbar fusion L4-5 at [facility], 2016. He says back pain was there, even before the surgery. But the thigh symptoms started after surgery. Last seen by Neurosurgery 2022 (?) He says he had a spinal cord stimulator placed last year, I think he used to follow [facility] (?). It did not help so it was removed. Last MRI a year ago (?). He saw a foot doctor yesterday. Seen by ortho for hip pain, then referred to physiatry. ER notes, reviewed. EMG 01/21/24 Dr. Mohit SCHULTZ was unremarkable. Gen Surgery for recent colonoscopy. [facility] Medical History Tubular adenoma of colon Colon cancer screening Chronic abdominal pain Anxiety Hyperlipidemia Chronic back pain Chronic pain Surgical History History of colonoscopy with polypectomy (~11/29/23) History of colonoscopy History of back surgery H/O colonoscopy Hx of abdominal surgery Social History Are you a primary director critical care to a significant other at home: No Do you presently have visiting nurse or other home services: Yes ([employer] 51 hours per month) Alcohol intake: never Comment: trying to sleep Patient Tobacco Use Status: Former Tobacco user Tobacco use type: Cigarette Second Hand Smoke Exposure: No service: No Current occupational status: unemployed and disabled Current occupation: Right handed Review of Systems Const All systems reviewed & are unremarkable except as noted in HPI and below Physical Exam Vital Signs: BMI result Body Mass Index 30.7 Constitutional: Patient appears to be in no acute distress, well nourished and well developed. Patient was appropriately conversant and oriented. MSK: No specific abnormalities found on inspection of the spine and all extremities. Diffusely tender lower back. Lumbar ROM was full. Bilateral hip, knee and ankle ROM WNL. No ligamentous laxity or crepitance. No increased effusion. Strength is 5/5 in all muscle groups tested. No increased tone noted. Neurological: Neurologic examination of the upper and lower extremities was nonfocal with intact sensation, muscle stretch reflexes and without focal motor deficits . Weinstein?s negative bilaterally. Babinski was down going bilaterally. Clonus was negative. Gait is antalgic without loss of balance. Results Reviewed Results Reviewed: Independently reviewed lumbar and hip x-ray images. Previous lumbar x-rays shows hardware on L4-5. Hip x-ray showed mild joint space loss. I reviewed records from the following: As above Assessment & Plan Assessment & Plan (1) Chronic back pain: Code(s): M54.9 - Dorsalgia, unspecified; G89.29 - Other chronic pain Category: Medical Qualifiers: Back pain location: low back pain Back pain laterality: midline Sciatica presence: without sciatica Qualified Code(s): M54.50 - Low back pain, unspecified; G89.29 - Other chronic pain (2) History of lumbar fusion: Code(s): Z98.1 - Arthrodesis status Category: Surgical Plan Chronic lower back pain, L4-5 distribution? Do not have enough information as to what has been done for him in the past and which ones helped or not. We will obtain records from [facility], basic pain management and try to see if this had any recent lumbar MRI. We will see him again after we have more complete records. Assessment and plan discussed with patient, and patient was agreeable. All questions were answered thoroughly. Sonia Blankenship MD, SAHARA Board Certified, [place] [employer] and [employer] (ABPMR) Board Certified, [place] [employer] (ABEM) Coding Level of Care Code New Pt Level 4 (91105) Complex EM visit Add On G2211 Diagnoses Chronic midline low back pain without sciatica M54.50; G89.29 Back pain location: low back pain Back pain laterality: midline Sciatica presence: without sciatica History of lumbar fusion Z98.1
== END 2024-03-26 10:19 | disposition home or self-care (01) ==
PROVIDERS: PCP Internal Medicine; Visit Provider Physical Medicine & Rehabilitation
DX: M54.50 Low back pain, unspecified (principal); G89.29 Other chronic pain; Z98.1 Arthrodesis status
CPT/HCPCS: 99203; G2211

== ENCOUNTER → 2024-03-26 09:45 | Outpatient (BNVA) | payer OTHER, SELFPAY | PROVIDERS: PCP Internal Medicine; Visit Provider Physical Medicine & Rehabilitation | DX: M54.50 Low back pain, unspecified (principal); G89.29 Other chronic pain; Z98.1 Arthrodesis status | CPT/HCPCS: 99202 ==

== ENCOUNTER 2024-04-23 08:58 | Outpatient (REF) | payer OTHER, SELFPAY | END 2024-04-23 08:59 | disposition home or self-care (01) | LOC: HO.HOSX 08:58 | PROVIDERS: PCP Internal Medicine; Visit Provider Physical Medicine & Rehabilitation | DX: M54.50 Low back pain, unspecified (principal); G89.29 Other chronic pain; Z98.1 Arthrodesis status; M25.561 Pain in right knee | CPT/HCPCS: 99212 ==

== ENCOUNTER 2024-04-23 08:58 | Outpatient (AMB) | payer OTHER, SELFPAY ==
--- OUTSIDE RECORDS SUMMARY | 2024-04-23 09:11 | XMS_ITS | Continuity of Care Document ---
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 19:03:01 EST Updated: 03/29/2024 19:14 EST XR Foot Min 3 Views Left This document has an image Reason For Exam with??Pain;Trauma RESULT: Foot Min 3 Views Left Examination: Left tibia and fibula and left foot performed on 03/29/2024.? History: Reason: Trauma; with Pain; Clinical Question(s): Fracture ?? Findings: ?? Frontal and lateral views of the left tibia and fibula and frontal, oblique, and lateral views of the left foot are submitted. ?? No acute fractures or dislocations are demonstrated. Deformity of the medial malleolus likely represents the sequela of prior trauma. No acute fractures are seen within the foot. ?? Impression: ?? There is no acute osseous abnormality. ? WSN: [id number] ? Ordering Physician: Ny Arevalo?? Signature Line Dictated By: ?Neva Cartwright MD Dictated Date/Time: ?03/29/24 7:11 pm Reviewed By: ?Neva Cartwright MD Signed By: ? Neva Cartwright MD Signed Date/Time: ? 03/29/24 7:11 pm Transcribed By: ? CSB Transcribed Date/Time: ?03/29/24 7:10 pm ?? Foot Min 3 Views Left Clavicle Complete Left Event Date: 03/29/2024 19:03:01 EST Updated: 03/29/2024 19:21 EST XR Clavicle Complete Left This document has an image Reason For Exam with Pain;Trauma RESULT: Clavicle Complete Left Examination: Left clavicle performed on 03/29/2024? History: Reason: Trauma; with Pain; Clinical Question(s): Fracture ?? Findings: ?? Two views of the left clavicle are submitted. ?? No fractures are demonstrated. The AC joint is preserved. ?? The visualized ribs and lung parenchyma are unremarkable. ?? IMPRESSION: ?? There is no osseous abnormality. ? WSN: [id number] ? Ordering Physician: Ny Arevalo?? Signature Line Dictated By: ?Neva Cartwright MD Dictated Date/Time: ?03/29/24 7:18 pm Reviewed By: ?Neva Cartwright MD Signed By: ? Neva Cartwright MD Signed Date/Time: ? 03/29/24 7:18 pm Transcribed By: ? CSB Transcribed Date/Time: ?03/29/24 7:17 pm ?? Clavicle Complete Left Clavicle Complete Right Event Date: 03/29/2024 19:03:01 EST Updated: 03/29/2024 19:20 EST XR Clavicle Complete Right This document has an image Reason For Exam with Pain;Trauma RESULT: Clavicle Complete Right Examination: Right clavicle performed on 03/29/2024.? History: Reason: Trauma; with Pain;??Clinical Question(s): Fracture ?? Findings: ?? Two views of the right clavicle are submitted. ?? No fractures are demonstrated. The AC joint is preserved. ?? The visualized ribs and lung parenchyma are unremarkable. ?? IMPRESSION: ?? There is no osseous abnormality. ? WSN: [id number] ? Ordering Physician: Ny Arevalo?? Signature Line Dictated By: ?Neva Cartwright MD Dictated Date/Time: ?03/29/24 7:17 pm Reviewed By:?Neva Cartwright MD Signed By: ? Neva Cartwright MD Signed Date/Time: ? 03/29/24 7:17 pm Transcribed By: ? CSB Transcribed Date/Time: ?03/29/24 7:16 pm ?? Clavicle Complete Right XR Femur 2 Views Left Event Date: 03/29/2024 19:03:01 EST Updated: 03/29/2024 19:15 EST XR Femur 2 Views Left This document has an image Reason For Exam with Pain;Trauma RESULT: Femur 2 Views Left Examination: Left femur performed on 03/29/2024? History: Reason: Trauma; with Pain; Clinical Question(s): Fracture ?? Findings: ?? Frontal and frog-leg views of the left femur are submitted. ?? The femoral head is normally aligned with the acetabulum. No fractures are seen. There is no significant productive change. 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 ?? Pedicle screw fixation at the L4-L5 level is noted. ?? IMPRESSION: ?? There is no acute osseous abnormality. ? WSN: [id number] ? Ordering Physician: Ny Arevalo?? Signature Line Dictated By: ?Neva Cartwright MD Dictated Date/Time: ?03/29/24 7:12 pm Reviewed By: ?Neva Cartwright MD Signed By: ? Neva Cartwright MD Signed Date/Time: ? 03/29/24 7:12 pm Transcribed By: ? CSB Transcribed Date/Time: ?03/29/24 7:11 pm ?? Femur 2 Views Left XR Femur 2 Views Right Event Date: 03/29/2024 19:03:01 EST Updated: 03/29/2024 19:18 EST XR Femur 2 Views Right This document has an image Reason For Exam with Pain;Trauma RESULT: Femur 2 Views Right Examination: Right femur performed on 03/29/2024.? History: Reason: Trauma; with Pain; Clinical Question(s): Fracture ?? Findings: ?? Frontal and lateral views of the right femur??are submitted. ?? No fractures or dislocations are demonstrated. The femoral head is normally aligned with the acetabulum. ?? Lumbar spine fixation hardware is seen. ?? IMPRESSION: ?? There is no osseous abnormality. ? WSN: [id number] ? Ordering Physician: Ny Arevalo?? Signature Line Dictated By: ?Neva Cartwright MD Dictated Date/Time: ?03/29/24 7:15 pm Reviewed By: ?Neva Cartwright MD Signed By: ? Neva Cartwright MD Signed Date/Time: ? 03/29/24 7:15 pm Transcribed By: ? CSB Transcribed Date/Time: ?03/29/24 7:14 pm ?? Femur 2 Views Right Tibia/Fibula 2 Views Left Event Date: 03/29/2024 19:03:01 EST Updated: 03/29/2024 19:14 EST XR Tibia/Fibula 2 Views Left This document has an image Reason For Exam with Pain;Trauma RESULT: Tibia/Fibula 2 Views Left Examination: Left tibia and fibula and left foot performed on 03/29/2024.? History: Reason: Trauma; with Pain; Clinical Question(s): Fracture ?? Findings: ?? Frontal and lateral views of the left tibia and fibula and frontal, oblique, and lateral views of the left foot are submitted. ?? No acute fractures or dislocations are demonstrated. Deformity of the medial malleolus likely represents the sequela of prior trauma. No acute fractures are seen within the foot. ?? Impression: ?? There is no acute osseous abnormality. ? WSN: [id number] ? Ordering Physician: Ny Arevalo?? Signature Line Dictated By: ?Neva Cartwright MD Dictated Date/Time: ?03/29/24 7:11 pm Reviewed By: ?Neva Cartwright MD Signed By: ? Neva Cartwright MD Signed Date/Time: ?03/29/24 7:11 pm Transcribed By: ? CSB Transcribed Date/Time: ?03/29/24 7:10 pm ?? Tibia/Fibula 2 Views Left Tibia/Fibula 2 Views Right Event Date: 03/29/2024 19:03:01 EST Updated: 03/29/2024 19:19 EST XR Tibia/Fibula 2 Views Right This document has an image Reason For Exam with Pain;Trauma RESULT: Tibia/Fibula 2 Views Right Examination: Right tibia and fibula performed on 03/29/2024.? History: Reason: Trauma; with Pain; Clinical Question(s): Fracture ?? Findings: ?? Frontal and lateral views of the right tibia and fibula are submitted. ?? No fractures or dislocations are demonstrated.??The soft tissues are unremarkable. ?? IMPRESSION: ?? There is no osseous abnormality. ? WSN: [id number] ? Ordering Physician: Ny Arevalo?? Signature Line Dictated By: ?Neva Cartwright MD Dictated Date/Time: ?03/29/24 7:16 pm Reviewed By: ?Neva Cartwright MD Signed By: ? Neva Cartwright MD Signed Date/Time: ? 03/29/24 7:16 pm Transcribed By:?CSB Transcribed Date/Time: ?03/29/24 7:15 pm ?? Tibia/Fibula [address] Chest W/ Contrast Event Date: 03/29/2024 18:38:33 EST Updated: 03/29/2024 19:[address] Chest W/ Contrast This document has an image Reason For Exam Chest trauma, blunt;Other: RESULT: CT Chest W/ Contrast CT Chest W/ Contrast, CT Abd/Pelvis W/ IV Contrast Only? INDICATION: Reason: Other:; Chest trauma, blunt; Clinical Question(s): Other:; Aortic hilar injury ?? TECHNIQUE: Helical CT scan of the chest, abdomen, and pelvis with IV contrast, formatted in 3 planes. 100 cc of Isovue 300 was administered intravenously. This study was performed without oral contrast. Weight-based protocol was performed using automatic exposure control. ?? COMPARISON: None. ?? FINDINGS:? [place] view findings, lines and tubes: None. ?? Trachea and airways: Patent without evidence of tracheal or endobronchial lesion. ?? Lungs and pleura: Clear lungs. No effusion or pneumothorax. ?? Mediastinum and magdalena: No mass or hematoma. No mediastinal or hilar lymphadenopathy. No esophageal abnormality. ?? Heart: Heart is normal in size. No pericardial effusion. ?? Aorta: No aortic aneurysm. ?? Pulmonary arteries: Normal caliber. No evidence of pulmonary embolism on this study performed without angiographic technique. ?? Chest wall soft tissues: No acute abnormality. ?? Diaphragm: Intact. ?? Liver: Normal in attenuation and morphology. No suspicious lesion. ?? Gallbladder: No CT evidence of gallbladder pathology. ?? Bile ducts: No biliary ductal dilation. ?? Spleen: Normal in size. ?? Pancreas: No suspicious lesion or ductal dilatation. ?? Adrenal glands: No nodule. ?? Kidneys and ureters: 2 mm calcification in the upper pole of the left kidney. Tiny calcification inthe lower pole of the right kidney. Simple appearing renal cysts are noted, requiring no dedicated follow up. ?? Bladder: No wall thickening or surrounding stranding. ?? Reproductive organs: Unremarkable. ?? Stomach, small bowel, and large bowel: Normal caliber stomach and bowel loops. No surrounding inflammatory changes. ?? Appendix: No evidence of acute appendicitis. ?? Peritoneum and retroperitoneum: No ascites or pneumoperitoneum. No omental or mesenteric lesions. ?? Lymph nodes: No enlarged lymph nodes. ?? Blood vessels: No vascular calcifications or aneurysm. No evidence of venous thrombosis. ?? Abdominal and pelvic wall soft tissues: No acute abnormality. ?? Bones: No acute abnormality. ?? IMPRESSION: ?? No acute abnormality. ? WSN: [id number] ? Ordering Physician: Ny Arevalo?? Signature Line Dictated By: ?Alvarez Holcomb MD Dictated Date/Time: ?03/29/24 7:18 pm Reviewed By: ?Alvarez Holcomb MD Signed By: ? Alvarez Holcomb MD Signed Date/Time: ? 03/29/24 7:18 pm Transcribed By: ? CSB Transcribed Date/Time: ?03/29/24 7:13 pm ?? CT Chest W/ Contrast CT Abd/Pelvis W/ IV Contrast Only Event Date: 03/29/2024 18:38:33 EST Updated: 03/29/2024 19:[address] Abd/Pelvis W/ IV Contrast Only This document has an image Reason For Exam Abd trauma, blunt;Other: RESULT: CT Abd/Pelvis W/ IV Contrast Only CT Chest W/ Contrast, CT Abd/Pelvis W/ IV Contrast Only? INDICATION: Reason: Other:; Chest trauma, blunt; Clinical Question(s): Other:; Aortic hilar injury ?? TECHNIQUE: Helical CT scan of the chest, abdomen, and pelvis with IV contrast, formatted in 3 planes. 100 cc of Isovue 300 was administered intravenously. This study was performed without oral contrast. Weight-based protocol was performed using automatic exposure control. ?? COMPARISON: None. ?? FINDINGS:? [place] view findings, lines and tubes: None. ?? Trachea and airways: Patent without evidence of tracheal or endobronchial lesion. ?? Lungs and pleura: Clear lungs. No effusion or pneumothorax. ?? Mediastinum and magdalena: No mass or hematoma. No mediastinal or hilar lymphadenopathy. No esophageal abnormality. ?? Heart: Heart is normal in size. No pericardial effusion. ?? Aorta: No aortic aneurysm. ?? Pulmonary arteries: Normal caliber. No evidence of pulmonary embolism on this study performed without angiographic technique. ?? Chest wall soft tissues: No acute abnormality. ?? Diaphragm: Intact. ?? Liver: Normal in attenuation and morphology. No suspicious lesion. ?? Gallbladder: No CT evidence of gallbladder pathology. ?? Bile ducts: No biliary ductal dilation. ?? Spleen: Normal in size. ?? Pancreas: No suspicious lesion or ductal dilatation. ?? Adrenal glands: No nodule. ?? Kidneys and ureters: 2 mm calcification in the upper pole of the left kidney. Tiny calcification inthe lower pole of the right kidney. Simple appearing renal cysts are noted, requiring no dedicated follow up. ?? Bladder: No wall thickening or surrounding stranding. ?? Reproductive organs: Unremarkable. ?? Stomach, small bowel, and large bowel: Normal caliber stomach and bowel loops. No surrounding inflammatory changes. ?? Appendix: No evidence of acute appendicitis. ?? Peritoneum and retroperitoneum: No ascites or pneumoperitoneum. No omental or mesenteric lesions. ?? Lymph nodes: No enlarged lymph nodes. ?? Blood vessels: No vascular calcifications or aneurysm. No evidence of venous thrombosis. ?? Abdominal and pelvic wall soft tissues: No acute abnormality. ?? Bones: No acute abnormality. ?? IMPRESSION: ?? No acute abnormality. ? WSN: [id number] ? Ordering Physician: Ny Arevalo?? Signature Line Dictated By: ?Alvarez Holcomb MD Dictated Date/Time: ?03/29/24 7:18 pm Reviewed By: ?Alvarez Holcomb MD Signed By: ? Alvarez Holcomb MD Signed Date/Time: ? 03/29/24 7:18 pm Transcribed By: ? CSB Transcribed Date/Time: ?03/29/24 7:13 pm ?? CT Head/Brain W/O Contrast Event Date: 03/29/2024 18:33:57 EST Updated: 03/29/2024 19:[address] Head/Brain W/O Contrast This document has an image Reason For Exam Head trauma, mod-severe;Other: RESULT: CT Head/Brain W/O Contrast CT Head/Brain W/O Contrast, CT Cervical Spine W/O Contrast? Reason: Other:; Head trauma, mod-severe; Clinical Question(s): Hematoma ?? COMPARISON: None. ?? TECHNIQUE:?? Incremental CT without contrast through the head was formatted in axial and coronal plane. Spiral CT without contrast through the cervical spine was formatted in 3 planes. Automatic tube modulation was used for the cervical spine and iterative dose reconstruction was used for both the head and cervical spine??to optimize scan parameters and image quality. ?? FINDINGS:? [place] View Findings, Lines and Tubes: None. ?? CT of HEAD: ?? BRAIN: ??No parenchymal hemorrhage, midline shift, or mass effect. Summers-white matter differentiation is well preserved. No acute infarct. Moderate low-density white matter changes.?? VENTRICLES: Mild prominence of the ventricles and sulci consistent with parenchymal volume loss. ?? EXTRA-AXIAL SPACES: No subarachnoid hemorrhage. No subdural or epidural collection. SKULL/SOFT TISSUES: ??No fractures or suspicious bony lesions. The extracranial soft tissues are unremarkable. SINUSES: The paranasal sinuses and mastoid air cells are clear. ORBITS: Visualized orbits and globes are intact.? CT of CERVICAL SPINE:? CERVICAL SPINE: No fracture or acute malalignment. The alignment is maintained. Degenerative changes are noted including disc height loss, anterior osteophytes and posterior disc osteophyte complexes. OTHER BONES: ??Normal. CERVICAL SOFT TISSUES:Unremarkable. LUNG APICES: Clear lung apices. ?? IMPRESSION: ? No acute abnormality of the head or cervical spine. ? WSN: [id number] ? Ordering Physician: Ny Arevalo?? Signature Line Dictated By: ?Alvarez Holcomb MD Dictated Date/Time: ?03/29/24 7:05 pm Reviewed By: ?Alvarez Holcomb MD Signed By: ? Alvarez Holcomb MD Signed Date/Time: ? 03/29/24 7:05 pm Transcribed By: ? CSB Transcribed Date/Time: ?03/29/24 7:02 pm ?? CT Head/Brain W/O Contrast CT Cervical Spine W/O Contrast Event Date: 03/29/2024 18:33:57 EST Updated: 03/29/2024 19:[address] Cervical Spine W/O Contrast This document has an image Reason For Exam Neck trauma, dangerous injury mechanism;Other: RESULT: CT Cervical Spine W/O Contrast CT Head/Brain W/O Contrast, CT Cervical Spine W/O Contrast? Reason: Other:; Head trauma, mod-severe; Clinical Question(s): Hematoma ?? COMPARISON: None. ?? TECHNIQUE:?? Incremental CT without contrast through the head was formatted in axial and coronal plane. Spiral CT without contrast through the cervical spine was formatted in 3 planes. Automatic tube modulation was used for the cervical spine and iterative dose reconstruction was used for both the head and cervical spine to optimize scan parameters and image quality. ?? FINDINGS:? [place] Findings, Lines and Tubes: None. ?? CT of HEAD: ?? BRAIN: ??No parenchymal hemorrhage, midline shift, or mass effect. Summers-white matter differentiation is well preserved. No acute infarct. Moderate low-density white matter changes.?? VENTRICLES: Mild prominence of the ventricles and sulci consistent with parenchymal volume loss. ?? EXTRA-AXIAL SPACES: No subarachnoid hemorrhage. No subdural or epidural collection. SKULL/SOFT TISSUES: ??No fractures or suspicious bony lesions. The extracranial soft tissues are unremarkable. SINUSES: The paranasal sinuses and mastoid air cells are clear. ORBITS: Visualized orbits and globes are intact.? CT of CERVICAL SPINE:? CERVICAL SPINE: No fracture or acute malalignment. The alignment is maintained. Degenerative changes are noted including disc height loss, anterior osteophytes and posterior disc osteophyte complexes. OTHER BONES: ??Normal. CERVICAL SOFT TISSUES:Unremarkable. LUNG APICES: Clear lung apices. ?? IMPRESSION: ? No acute abnormality of the head or cervical spine. ? WSN: [id number] ? Ordering Physician: Ny Arevalo?? Signature Line Dictated By: ?Aicha LAWSON, Alvarez Nguyen Dictated Date/Time: ?03/29/24 7:05 pm Reviewed By: ?Alvarez Holcomb MD Signed By: ? Alvarez Holcomb MD Signed Date/Time: ? 03/29/24 7:05 pm Transcribed By: ? CSB Transcribed Date/Time: ?03/29/24 7:02 pm ?? Chest Portable Event Date: 03/29/2024 18:30:22 EST Updated: 03/29/2024 18:41 EST XR Chest Portable This document has an image Reason For Exam Pain;Other: RESULT: Chest Portable Examination: Portable chest performed on 03/29/2024. ?? History: Pain ?? Findings: ?? A frontal view of the chest is compared to a prior study dated 11/23/2022. ?? The cardiac and mediastinal silhouettes are within normal limits. The lungs are clear. There is stable elevation of the right hemidiaphragm. The osseous structures are unremarkable. ?? IMPRESSION: ?? There is no acute cardiopulmonary disease. WSN: [id number] ? Ordering Physician: Ny Arevalo?? Signature Line Dictated By: ?Neva Cartwright MD Dictated Date/Time: ?03/29/24 6:38 pm Reviewed By: ?Neva Cartwright MD Signed By: ? Neva Cartwright MD Signed Date/Time: ? 03/29/24 6:38 pm Transcribed By: ? CSB Transcribed Date/Time: ?03/29/24 6:37 pm ?? Chest Portable Patient Care team information Care Team Personnel Name: Heather Dorado RN Position: [facility] RN Member Role: Primary Care Nurse Name: Jules Escalona MD Position: [facility] Outreach Member Role: PCP Address: [address] [place] [id number]- Telecom: Name: Arlene Edmondson RN Position: S RN Member Role: Primary Care Nurse Name: Neva Gomez RN Position: [facility] RN Member Role: Primary Care Nurse Name: Jason Santamaria RN Position: [facility] Outreach Member Role: Primary Care Nurse Name: Trinidad Drew RN Position: [facility] ED RN W/OE and Tasks Member Role: Primary Care Nurse Name: Radha Abad RN Position: [facility] RN Member Role: Primary Care Nurse Name: Michael Lowry RN Position: [facility] RN Member Role: Primary Care Nurse Name: Pavithra Luis NP Position: Reference Physician Member Role: Primary Care Nurse Address: [address] [place] [phone]- Telecom: Name: Celine Sales RN Position: [facility] RN Member Role: Primary Care Nurse Name: Clare Reyes RN Position: [facility] OB RN Member Role: Primary Care Nurse Name: Lisa Iqbal RN Position: [facility] SN RN Member Role: Primary Care Nurse Care Team Related Persons Name: ISAC WARD Insurance Providers Guarantor name: SARAH BETH ARAUJO Health Plan Information #: 1 Payer: [employer] Member Number: [id number] Policy Number: NA Group Number: [employer] [facility] [facility] Health Plan Information #: 2 Payer: [employer] Member Number: [id number] Policy Number: NA Group Number: NA
--- OUTSIDE RECORDS SUMMARY | 2024-04-23 09:11 | XMS_ITS | Data Portability ---
Author Organization [facility], [facility] [email or web address] Address [address] [place] [address] Care Team Providers Care Fisher Quahog Name Role Phone [facility] Referring Provider [phone] [facility] Referring Provider Assessment Encounter Date Assessment Date Assessment LastModified by Organization Details LastModified Time 09/29/2021 09/29/2021 I have reviewed and agree with the assessment and plan as documented by the opener. I provided real time medical direction for this encounter and was immediately available to provide additional phone based assistance as needed. History as noted by opener. Pt with history of chest pain and pericardial effusion. Unclear what chest pain work up pt has had in past but he does have a bottle of NTG in his home that about 1 year ago. Pt reports several months of intermittent L sided chest pain that he describes as burning . Unclear if the pain is related to exertion at times. Pt is also reporting L arm and leg pain, but not always associated with the chest pain. Pt reported these symptoms to his PCP who called for an ambulance to take the pt to the ED yesterday for evaluation. Pt reportedly had an EKG performed and was medicated with 4 ASA en route to the ED. In the [facility] ED, the pt reportedly did not want to wait so left and did not stay for evaluation. Today pt is still reporting intermittent L chest pain intermittently today. No dyspnea. He reports L arm and leg pain as well but not clear if they are associated with the chest pain. Chest pain is not reproducible with palpation. Vitals are unremarkable. EKG with sinus rhythm. ? slight ST segment depression noted in V5, V6 Impression: Pt with history of prior chest pain and pericardial effusion and has SL NTG at home but unclear if ever actually diagnosed with CAD. Pt not sure. Pt is a poor historian and is now reporting several months of intermittent L sided chest pain, unclear if this is exertional. EKG with possible ST segment depressions but no old EKG available for comparison. Pt will need to have ACS ruled out and will also need further evaluation with Stress testing, echo, etc. I advised the pt to go to the ED by ambulance now for evaluation. Pt declines an ambulance and will have his son drive him now to the [facility] ED (pt does not want to return to [facility]). btils Not available 09/29/2021 16:14:40 01/10/2022 01/10/2022 I have reviewed and agree with the assessment and plan as documented by the opener. I provided real time medical direction for this encounter and was immediately available to provide additional phone based assistance as needed. History as noted by opener. 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 He reports he has chronic, constant pain that involves the L side of his head, neck, chest, arm, abdomen and leg. He reports this pain daily and controls it with Tylenol. He reports increase in this constant pain since yesterday. He reports some nausea, which is typical when his pain worsens, but he denies any vomiting or dyspnea. Pain worsens with palpation, deep breathing and movement but is non exertional. On exam, pt appears well and comfortable. Vital signs normal. EKG with NSR, no evidence of acute ischemia. Impression: Pt with chronic, constant pain involving the entire left side of his body including L sided chest pain. This has worsened since yesterday with no associated dyspnea. Pain is non exertional but worsens with movement, palpation and deep breathing. Pt reports negative cardiac work ups in the past. Vital signs today normal. EKG today is without evidence of ischemia. Pt reports that he has received IM toradol in the past with resolution of the pain and he is requesting this at this time. Pt's symptoms do not seem c/w ACS and unremarkable EKG is reassuring. Pt medicated with toradol 30mg IM and zofran ODT 4mg po. Pt instructed to call and f/u with his primary care team to discuss further evaluation and to seek medical attention right away with any worsening or new symptoms, which are reviewed with him. btils Not available 01/10/2022 11:27:18 02/01/2022 02/01/2022 Called to assess acute on chronic pain in patient with chronic left low back pain and right knee pain. no red flag sxs at either site (no saddle anesthesia or urinary incontinence above baseline; no redness, warmth or severe acute pain of right knee). Pt has scheduled appt with pain provider in 1-2 wks. Reports h/o GI distress w NSAIDs but has tolerated ketorlac in recent past and denies renal issues. 1) CAM ketorolac by opener 2) lidocaine gel to pharmacy 3) diclofenac gel to pharmacy 4) [email or web address] 02/01/2022 18:25:27 08/13/2022 08/13/2022 As noted, we wer e called to see this patient regarding concerns of chest pain. Evaluation in the field was performed by my opener colleague, as noted above, I provided real-time direction and supervision for this visit. The evaluation revealed that he had severe intermittent chest pain radiating down the arm. EKG was performed- no evidence of ischemic changes. We discussed with the patient and advised ED evaluation, which he agreed to. Aspirin was given. Of note, I saw in the record after the decision had been made that the patient had a negative stress test at [facility] several months ago. Despite this, the presentation is still concerning for ACS, PE, or other serious conditions requiring urgent evaluation. Impression: chest pain. Plan: ED evaluation. Disposition: We discussed the situation and I recommended referral to the emergency department. [email or web address] Not available 08/13/2022 18:58:20 11/27/2022 11/27/2022 I provided real -time medical direction via phone for this encounter, and was available for additional phone based assistance as needed. I have reviewed and agree with the Assessment and Plan as documented by the Rail Splitter. Patient given the opportunity to ask questions. As per above, patient with frequent complaints of chest pain and palpitations that has resulted in previous visits by instead as well as to the ED. Last this week with chest pain. Patient had a reassuring exam and EKG and left after not being seen in ED for more than 12 hours. Since then has had palpitations. All EKG findings are reassuring. Blood work is reassuring. Patient reassured that currently there is no evidence of a concerning event that would require emergency room visit. Patient does not have any palpitations at the current time and is completely asymptomatic. Will ask Care team to follow-up in regards to whether not further diagnostic testing is recommended. [email or web address] Not available 11/27/2022 21:45:12 Plan of Treatment Reminders Order Date Submit Date Provider Last Modified By Organization Details Last Modified Time Details Appointments None recorded. Lab None recorded. Referral None recorded. Procedures None recorded. Surgeries None recorded. [facility] [address] [place] [address], [phone], 16:15:33 [facility]card [facility] [address] [place] [address], [phone], 10:43:33 electrocard iogram 2022 023 [facility], [address] [place] [address], [phone], 4 05:00:54 Medication Orders ketorolac 30 mg/mL injection solution 2021 btils Not available 10:34:50 ondansetron 4 mg disintegrat ing tablet 2021 btils Not available 10:34:50 ketorolac 30 mg/mL (1 mL) injection solution 2021 atil[facility] Not available 18:14:55 Aspercreme (lidocaine HCl) 4 % topical 2021 [id number], [address], [place], [phone], 18:21:17 diclofenac 1 % topical gel 2021 [id number], [address], [place], [phone], 18:21:57 aspirin 325 mg tablet 2022 023 [id number], [address] , [place], [place], [phone], 18:58:01 Patient TargetsNo targets recorded. Patient InstructionsNo instructions recorded. Reason for Referral None Reported. Results Created Date Observation Date Name Description Value Unit Range Abnormal Flag Note LastModifiedBy Organization Detail LastModifiedTime 09/30/19 22 09/29/2021 elect rocar diogr am No observ ation [facility] ed. [facility] [address] [place] [address], [id number], 09/29/2021 16:15:30 01/11/20 22 01/10/2022 elect rocar diogr am No observ ation record ed. [facility] [address] [place] [address], [phone], 01/10/2022 10:43:30 11/28/19 23 11/29/2022 elect rocar diogr am No observ ation record ed. [email or web address] [address] [place] [address], [phone], 11/29/2022 10:41:51 Result Notes None recorded. Procedures Surgical History None recorded. Imaging Results Imaging Date Name Status LastModified by Organization Details LastModified Time 09/29/2021 electrocardiogram completed b[facility] [address] [place] [address], [phone], 09/29/2021 16:15:30 01/10/2022 [facility] [address] [place] [address], [phone], 01/10/2022 10:43:30 11/29/2022 electrocardiogram completed [email or web address] - [facility] [address] [place] [address], [phone], 11/29/2022 10:41:51 Procedure Notes None recorded. Medical Equipment None Reported. Medications Name Sig Start Date Stop Date Status Note LastModified by Organization Details LastModified Time fluoxetine 40 mg capsule TAKE 1 CAPSULE BY MOUTH EVERY DAY IN THE MORNING active Not Available Not Available No t Available cyclobenzapr ine 10 mg tablet TAKE 1 TABLET BY MOUTH TWICE DAILY active Not Available Not Available No t Available amoxicillin 500 mg capsule TAKE 1 CAPSULE BY MOUTH EVERY 8 HOURS active Not Available Not Available No t Available atorvastatin 20 mg tablet TAKE 1 TABLET BY MOUTH EVERY DAY active Not Available Not Available No t Available cetirizine 10 mg tablet TAKE 1 TABLET BY MOUTH EVERY DAY active Not Available Not Available No t Available famotidine 40 mg tablet active Not Available Not Available Not Available prednisone 20 mg tablet TAKE 2 TABLETS BY MOUTH DAILY FOR 5 DAYS active Not Available Not Available N ot Available metronidazol e 250 mg tablet TAKE 1 TABLET BY MOUTH THREE TIMES DAILY FOR 7 DAYS active Not Available Not Available N ot Available omeprazole 40 mg capsule,esdras yed release active Not Available Not Available Not Available tramadol 50 mg tablet TAKE 1 TABLET BY MOUTH EVERY 12 HOURS active Not Available Not Available No t Available amitriptylin e 50 mg tablet active Not Available Not Available Not Available famotidine 20 mg tablet TAKE 1 TABLET BY MOUTH EVERY DAY active Not Available Not Available No t Available amitriptylin e 25 mg tablet active Not Available Not Available Not Available gabapentin 800 mg tablet TAKE 1 TABLET BY MOUTH THREE TIMES DAILY active Not Available Not Available Not Available dicyclomine 20 mg tablet TAKE 1 TABLET BY MOUTH THREE TIMES DAILY active Not Available Not Available Not Available amitriptylin e 10 mg tablet active Not Available Not Available Not Available trazodone 150 mg tablet TAKE 1 TABLET BY MOUTH EVERY NIGHT AT BEDTIME AFTER A MEAL active Not Available Not Available No t Available ibuprofen 600 mg tablet TAKE 1 TABLET BY MOUTH THREE TIMES DAILY WITH FOOD NEEDED active Not Available Not Available No t Available ondansetron 4 mg disintegrati ng tablet Place 1 tablet by translingua l route. 2021 active Not Available Not Available Not Avai lable fluticasone propionate 50 mcg/actuatio n nasal spray,suspen jozef SHAKE LIQUID AND USE 1 TO 2 SPRAYS IN EACH NOSTRIL EVERY DAY NEEDED active Not Available Not Available No t Available oxycodone 5 mg tablet TAKE 1 TABLET BY MOUTH EVERY 6 HOURS NEEDED FOR PAIN active Not Available Not Available No t Available Mapap Arthritis Pain 650 mg tablet,exten ded release active Not Available Not Available Not Available cyclobenzapr ine 5 mg tablet TAKE 1 TABLET BY MOUTH THREE TIMES DAILY FOR 7 DAYS NEEDED FOR MUSCLE SPASM active Not Available Not Available No t Available mirtazapine 7.5 mg tablet active Not Available Not Available Not Available diclofenac 1 % topical gel APPLY 2 GRAMS TO THE AFFECTED AREA(S) BY TOPICAL ROUTE 4 TIMES PER DAY 2021 active Not Available Not Available Not Avai lable ketorolac 30 mg/mL injection solution 30mg IM x1 dose 2021 active Not Available Not Available Not Avai lable Aspercreme (lidocaine HCl) 4 % topical apply pea sized amount to affected area up to three times daily 2021 active Not Available Not Available Not Avai lable Vitals Date Recorded Oxygen saturation Oxygen saturation in Arterial blood by Pulse oximetry Respiratory rate Heart rate Systolic blood pressure Diastolic blood pressure Provider Name and Address Organization Details Last Updated DateTime 2 98 % 98 % 18 /min 82 /min 110 mm[Hg] 74 mm[Hg] Not Available [facility] 2 14:41:44 Date Recorded Body temperature Body weight Heart rate Respiratory rate Body height Oxygen saturation Oxygen saturation in Arterial blood by Pulse oximetry Systolic blood pressure Diastolic blood pressure Provider Name and Address Organization Details Last Updated DateTime 3 97.6 [degF] 46931.6 g 79 /min 16 /min 162.56 cm 96 % 96 % 117 mm[Hg] 85 mm[Hg] Not Available [facility] 3 21:43:02 Date Recorded Body temperature Heart rate Respiratory rate Oxygen saturation Oxygen saturation in Arterial blood by Pulse oximetry Body weight Body height Body temperature Oxygen saturation Oxygen saturation in Arterial blood by Pulse oximetry Body weight Respiratory rate Heart rate Body height Systolic blood pressure Diastolic blood pressure Systolic blood pressure Diastolic blood pressure Provider Name and Address Organization Details Last Updated DateTime 2 98.6 [degF] 98 /min 18 /min 98 % 98 % 05343.6 g 162.56 cm 98.6 [degF] 98 % 98 % 54590.6 g 18 /min 98 /min 162.56 cm 114 mm[Hg] 80 mm[Hg] 114 mm[Hg] 80 mm[Hg] Not Available [employer] 2 11:17:56 Date Recorded Body temperature Heart rate Oxygen saturation Oxygen saturation in Arterial blood by Pulse oximetry Respiratory rate Body weight Body height Systolic blood pressure Diastolic blood pressure Provider Name and Address Organization Details Last Updated DateTime 2 97.9 [degF] 92 /min 97 % 97 % 18 /min 01140.5 6 g 162.56 cm 119 mm[Hg] 81 mm[Hg] Not Available [facility] 2 18:06:29 Date Recorded Heart rate Respiratory rate Oxygen saturation Oxygen saturation in Arterial blood by Pulse oximetry Body weight Body temperature Oxygen saturation Oxygen saturation in Arterial blood by Pulse oximetry Respiratory rate Body temperature Heart rate Body weight Systolic blood pressure Diastolic blood pressure Systolic blood pressure Diastolic blood pressure Provider Name and Address Organization Details Last Updated DateTime 3 92 /min 14 /min 97 % 97 % 79012.5 6 g 99.3 [degF] 97 % 97 % 14 /min 99.3 [degF] 92 /min 79825.5 6 g 114 mm[Hg] 73 mm[Hg] 114 mm[Hg] 73 mm[Hg] Not Available [employer] 3 18:47:22 Social History None recorded. Functional Status None recorded. Mental Status None recorded. Family History Nothing Reported. Medical History No medical history recorded. Past Encounters Encounter ID Performer Location Encounter Start Date Encounter Closed Date Diagnosis/Indication Diagnosis SNOMED-CT Code Diagnosis ICD10 Code [id number] [facility] [address] [place] [id number] 07/13/2021 13:11:34 12/27/2021 13:01:01 Dry cough 81216647 R05.9 [id number] Antonio Dove MD Main - [facility] [address] [place] [id number] 09/29/2021 14:41:35 02/13/2022 09:59:05 Chest pain [id number] R07.9 [id number] [facility] [address] [place] [id number] 01/10/2022 10:28:17 02/13/2022 12:36:46 Chest pain [id number] R07.9 [id number] Deanne Rod MD Main - [address] [phone] 02/01/2022 18:06:26 02/06/2022 14:02:54 Musculoskeletal pain [id number] M79.10 [id number] AGAPITO MYERS MD Main - [facility] [address] [place] [id number] 08/13/2022 18:23:25 08/14/2022 22:49:15 Chest pain [id number] R07.9 [id number] Odalys Díaz MD Main - [facility] [address] [place] [id number] 11/27/2022 21:42:53 11/28/2022 09:09:55 Palpitations 15614198 R00.2 Health Concerns Section Related Observation LastModified by Organization Detai ls LastModified Time None Recorded Concern Status LastModified by Organization Details LastModified Time None Recorded Advance Directives Directive None Recorded Payers Encounter Date Sequence Insurance Name Policy Number Policy Temple Covered Member ID Temple Member ID Guarantor Name 09/29/2021 1 [employer] - DOS PRIOR TO 2022 - DUAL ELIGIBLE (MEDICARE REPLACEMENT/AD VANTAGE - HMO) Pedrito Fulton [id number] Pedrito Fulton 01/10/2022 1 [employer] - DOS PRIOR TO 2022 - DUAL ELIGIBLE (MEDICARE REPLACEMENT/AD VANTAGE - HMO) Pedrito Fulton [id number] Pedrito Fulton 02/01/2022 1 [employer] - DOS PRIOR TO 2022 - DUAL ELIGIBLE (MEDICARE REPLACEMENT/AD VANTAGE - HMO) Pedrito Fulton [id number] Pedrito Fulton 08/13/2022 1 [employer] - DOS PRIOR TO 2022 - DUAL ELIGIBLE (MEDICARE REPLACEMENT/AD VANTAGE - HMO) Pedrito Fulton [id number] Pedrito Fulton 11/27/2022 1 [employer] - DOS ON OR AFTER 2022 - DUAL ELIGIBLE - HALF-WAY OPTIONS AND ONE CARE (MEDICARE REPLACEMENT/AD VANTAGE - HMO) Pedrito Fulton [id number] Pedrito Fulton Notes Date Note Type Note Provider Name and Address Organization Details Recorded Time 09/29/2021 text/html This was a supervised home visit with opener Adrian Dan. HPI: REvisit from this AM> visit unfulfilled wants to be seen after 2 Member said he has been having chest pain that goes to his arm and leg for one month. Pcp called ambulance for him yesterday and they gave him 4 aspirin on route. He go to the ED and it was too busy so he left. Member not wiling to go back to ED. He has New patient visit with Cardiology on 10/30/2021 ................... ................... ................... ................... ................... ................... ................... ........ Rail Splitter Note: Pt complaint of left sided chest/arm/leg pain x5 months. Describes it as burning. EKG. [employer] contacted. Pt was advised to go to ED via ambulance. Pt stated he would have his son take him to [facility]. ................... ................... ................... ................... ................... ................... ................... ........ Disposition: Fulfilled Antonio Dove MD [address] [facility],[address], [place], [phone], ABDELRAHMAN ALONZO 09/29/2021 16:16:31 01/10/2022 text/html This was a supervised home visit with opener Elba Lopez. HPI: Member said he is having left arm pain and left chest pain. He refused to go the emergency and he said inst[facility] usually come and give him some medicationsl History of spinal stenosis Allergic Benadryl and Tramadol ................... ................... ................... ................... ................... ................... ................... ........ CRC Nursing Assessment: Comments: [facility] , awaiting response if member is safe to wait overnight Spoke with member who has chronic chest pain, member has had cardiac work up in the past and continues to work with a staff counsel to determine why member has pain . Member is awaiting stress test and other tests in the future. Daughter is with member and stated this is his normal baseline and he is safe an stable but they are aware of when to call 911 ................... ................... ................... ................... ................... ................... ................... ........ Rail Splitter Note: Sent to a call for a pt complaining of chest pain and L arm pain. [facility] arrives on scene, pt is alert and oriented. Airway is patent. Pt complains of chronic pain in left head, left neck, radiating down left shoulder, left chest, left back, and left upper/lower extremities. Pain has been constant for years, but worsened yesterday and today. Pt states pain worsens with palpation, deep breaths, and movement. Pt has received steroid injections in past, but is supposed to have an appt on Jan 20 to consider other options for pain. Pt takes Tylenol and Gabapentin for pain. Pt complains of dizziness and nausea starting yesterday with pain increase. Pt has had similar presentations in the past. 12 lead ECG: uploaded to [employer]. Pt denies sob, v/d, abd pain, fever or loc. BP:114/80, P:98, RR:18, SpO2:98%, T:98.6; Lung sounds: clear bilaterally; Abdomen: soft, non-tender; Skin: pink, warm, dry; [facility] orders Toradol 30mg IM; Zofran 4mg ODT; Toradol and Zofran administered without incident. Pt advised to follow up with PCP. Red flags discussed. Pt has no further questions. ................... ................... ................... ................... ................... ................... ................... ........ Disposition: Fulfilled Antonio Dove MD [address] [place] [address],[address], [place], [phone], General Specific - [employer] 01/10/2022 11:27:39 02/01/2022 text/html HPI: Member has history of back and leg pain. He went t o the ED on 01/30 with back pain and he was treated . Member said pain is rated 10/10. He has an appointment at pain clinic on February 14. Pleasee see member and evaluate the pain, provide treatment if possible. ................... ................... ................... ................... ................... ................... ................... ........ CRC Nursing Assessment: Comments: CRC RN DID NOT NEED FURTHER INFO Deanne Rod MD [address] [place] [address],[address], [place], [phone], [facility] 02/01/2022 18:25:58 08/13/2022 text/html HPI: Member's daughter Lexi called into the CRU in behalf of her father Pedrito. Lexi states that Pedrito is complaining of nausea, dizziness and his BP is elevated. Lexi does not have the recorded BP. she states Pedrito is mostly Omani speaking. She is asking for an G3 visit. ................... ................... ................... ................... ................... ................... ................... ........ CRC Nursing Assessment: Comments: RN spoke to member via candy cutter hand. BP 91/70 today at 5 min ago. HR 105. Left sided chest pain that radiates to epigastric area. Also c/o AMIN and + nausea. Symptoms started last night. A&ox3. Member stated he went to ED for days ago and they told him his heart is fine. This RN advised to go to ED for emergency tx and member refused. While attempting to educate on reason for recommendation to go to ED member hung up. ................... ................... ................... ................... ................... ................... ................... ........ Rail Splitter Note From Melquiades Rhodes: Pt complains of left anterior chest pain that radiates down his left arm. Pt reports that he was seen at [facility] on 08/10 for the same complaint and was discharged home with no diagnosis. Pt reports that pain has steadily grown worse over the weekend and is sharp in nature rating the pain 12/20. Pt denies change to pain with movement or deep breaths and denies taking any medication for the pain. Pt denies NVD or changes to appetite. Pt presents COAX 4 speaking in full sentences, clenching chest occasionally in pain. Skin PWD to the touch with strong distal pulses in all extremities. VS stable and 12 lead EKG finds non diagnostic for STEM NSR with no ectopy. [facility] contacted who agreed that pt should be sent back to ED for cardiac work up and 911 was initiated . Pt administered 324 MG ASA PO and pt care was transferred to [facility] [facility] for transport back to ED. ................... ................... ................... ................... ................... ................... ................... ........ Disposition: Basilio MYERS MD [address] [facility],[address], [place], [address], General Specific - [employer] 08/13/2022 18:58:40 11/27/2022 text/html HPI: anxiety, heart palpatations ................... ................... ................... ................... ................... ................... ................... ........ CRC Nursing Assessment: Comments: Call to member via Operations Welder [phone] for additional information. Member who feels anxious, is having chest pain and sob, as well as pain to left arm, per member his BP is 99/73, HR 140, has some hot cold sweats, +nausea. Member was told to activate 911 for immediate assessment to rule out cardiac event. Member adamantly refuses, this nurse educated member that if he is having a cardiac event it could result in without prompt treatment, member again refuses and says he will call his PCP in the morning. Member went on to say last time we came out we sent him to the ED and he waited 14 hours and will not go back. This nurse again encouraged 911/ED, member becomes frustrated and still refuses. Member would like an instED visit. ................... ................... ................... ................... ................... ................... ................... ........ Rail Splitter Note From Clive Del Valle: Mobile health call for patient with complaint of chest pain. Arrived to patients apartment where he was found sitting in recliner. Pt presents CAOx4 in no obvious distress. Pt states that 10 min prior to mobile health arrival pt had had an episode of palpitations and chest pain radiating to his left arm. No chest pain currently. Pt states that during this time he used his home blood pressure cuff on his forearm and reports a systolic blood pressure of 99 and that his BP cuff said his pulse was 140 at this time. Pt vital signs taken as listed . EKG performed showing normal sinus rhythm, no st elevation or depression. ekg tracing uploaded for virtual medical control review . Consulted with Dr Yamile Díaz who advised no acute treatments. Reviewed red flags for ed with patient . Patient education provided . ................... ................... ................... ................... ................... ................... ................... ........ Disposition: Basilio Díaz MD [address] [facility],[address], [place], [address], [facility] 11/27/2022 21:46:07
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
== END 2024-04-23 10:05 | disposition home or self-care (01) ==
PROVIDERS: PCP Internal Medicine; Visit Provider Physical Medicine & Rehabilitation
DX: M54.50 Low back pain, unspecified (principal); G89.29 Other chronic pain; Z98.1 Arthrodesis status; M25.561 Pain in right knee
CPT/HCPCS: 99213

== ENCOUNTER 2024-04-24 08:56 | Outpatient (REF) | payer OTHER, SELFPAY ==
--- NOTE | ~2024-04-24 | XR_ITS ---
EXAMINATION: XR KNEE, RIGHT CLINICAL INFORMATION: M25.561 - Pain in right knee COMPARISON: X-rays of the right knee 10/14/2018 TECHNIQUE: 3 views of the right knee FINDINGS: There are small marginal osteophytes about the patellofemoral compartment without joint space narrowing indicative of minimal osteoarthritis unchanged. The medial and lateral compartments are normal. No effusion. XR/XR knee RT 3V IMPRESSION: Minimal osteoarthritis of the patellofemoral compartment unchanged. Electronically signed by: Francesco Cerda MD 04/24/2024 02:13 PM [facility]
== END 2024-04-24 08:57 | disposition home or self-care (01) ==
LOC: CF 08:56
DX: M25.561 Pain in right knee (principal); M54.50 Low back pain, unspecified; G89.29 Other chronic pain; Z98.1 Arthrodesis status
CPT/HCPCS: 73562

== ENCOUNTER 2024-05-11 10:28 | Outpatient (REF) | payer OTHER, SELFPAY | END 2024-05-11 10:29 | disposition home or self-care (01) | LOC: HO.HOSX 10:28 | PROVIDERS: Visit Provider Physician Assistant | DX: Z13.89 Encounter for screening for other disorder (principal) ==

== ENCOUNTER 2024-05-27 12:51 | Outpatient (AMB) | payer OTHER, SELFPAY ==
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
[2024-05-27 13:07] VITALS: BMI 29.9
--- OUTSIDE RECORDS SUMMARY | 2024-05-27 15:19 | XMS_ITS | Continuity of Care Document ---
Author Organization [address] [place] [address] Care Team Providers Care Lobster Catcher Name Role Phone Marli Horowitz MD Unavailable Unavailable Allergies, Adverse Reactions, Alerts Substance Reaction Status Criticality codeine Active No Information Procedures Procedure Date X-Ray Exam Of Finger POSTOP FOLLOW-UP VISIT X-Ray Exam Of Hand 3 Views POSTOP FOLLOW-UP VISIT X-Ray Exam Of Hand 3 Views POSTOP FOLLOW-UP VISIT TREAT FINGER FRACTURE, EACH X-Ray Exam Of Finger OFFICE/OUTPATIENT VISIT, NEW Advance Directives Directive Yes / No Effective Date File Name No Information Encounters Encounter Description Practice Location Reason(s) For Visit Diagnoses Date Provider Providers Copied on Encounter [address], [facility], [facility] Aftercare following surgery of the musculoskelet al system, NEC 1 Carlos Manuel Calles. [address], [place], [place], [id number] . [phone] Referring Provider: Gagan Mirza, [address], [place], [address]. [phone], [address], [facility] left hand fracture (chief complaint) Pain in joint involving hand Jan 1 Horowitzmanoj Ricosteven. [address], [place], [place], [id number] . tel:[phone] Referring Provider: Gagan Mirza, [address], [place], [address]. [phone], [place], [place], [facility], [facility] [place] Aftercare for healing traumatic fracture of lower armPain in joint involving hand 1 Horowitz Marli. [address], [place], [place], [id number] . tel:[phone] Referring Provider: Stephen Carlton, [facility] [address], [place], [address]. tel:[phone], [address] [place] [address] No Information 1 Horowitz Marli. [address] [place] [address], [id number] . tel:[phone] Referring Provider: Marli Horowitz, [address], [place], [address]. [phone] OFFICE/OUTPA TIENT VISIT, [address], [address], [facility] [place] left hand pain (chief complaint) Closed fracture of middle or proximal phalanx or phalanges of hand 1 Horowitz Marli. [address], [place], [place], [id number] . tel:[phone] Referring Provider: Stephen Carlton, [facility] [address], [place], [address]. tel:[phone] Family History Family Member Type Diagnosis Age At Onset Problem (finding) Family history of Heart disease Problem (finding) Family history of tuber culosis Problem (finding) Family history of hyper tension Problem (finding) Family history of Diabe shereen mellitus Immunizations Vaccine Date Status Comments flu (split) (3 yrs or older) administered Source: Other Provider Payers Payer name Insurance type Covered libertarian ID Brandon higgins(s) BC[employer] - [place] PPO BL [id number] Social History Type Description Quantity Date Captured Comments Alcohol Use Details No Caffeine Use Details No Tobacco Use Status No Information Smoking Status Never smoker Non-Smoking Tobacco Use Details : No Details Available : No Details Available Sex Male Chief Complaint And Reason For Visit No Information Reason For Referral Reason For Referral No Information History Of Present Illness Encounter Date Complaint History Of Prese nt Illness No Information Functional Status Date Functional Assessmen t No Information Instructions Date Instruction Additional Infor mation No Information Assessments Type Assessment Date No Information Patient Care Teams Name Effective Dates (start - stop) Status Members No Information
--- OUTSIDE RECORDS SUMMARY | 2024-05-27 15:19 | XMS_ITS | Continuity of Care Document ---
Author Organization [id number] - [facility] Practice Address [address] [place] [address] Phone Care Team Providers Care Export Administrator Name Role Phone [place] TIMOTHY Ashly Unavailable Unavailable Medications Medication Instructions Dosage Effective Dates (start - stop) Status Comments baclofen 10 mg tablet take 1/2 Tablet by oral route every morning 1 TABLET EACH EVENING as needed 5 MG - Active cyclobenzaprine 10 mg tablet take 1 tablet by oral route 3 times every day as needed 10 MG - Active albuterol sulfate 2.5 mg/3 mL (0.083 %) solution for nebulization inhale 3 milliliter by nebulization route 3 times every day 2.5 MG - Active albuterol sulfate HFA 90 mcg/actuation aerosol inhaler inhale 2 puff by inhalation route every 4 - 6 hours as needed - Active Procedures Procedure Date OFFICE/OUTPT EM EST DETAILED/MODERATE 25 MINS methylprednisolone acetate inj 40 mg Feb INJECTION THERAPEUTIC SUBQ/IM 5 dexamethasone sodium phosphate inj 1mg O OFFICE/OUTPT EM EST EXP PROB FOCUS/LOW 1 5 MINS OFFICE/OUTPT EM EST EXP PROB FOCUS/LOW 1 5 MINS OFFICE/OUTPT EM EST EXP PROB FOCUS/LOW 1 5 MINS OFFICE/OUTPT EM EST EXP PROB FOCUS/LOW 1 5 MINS Advance Directives Directive Yes / No Effective Date File Name No Information Encounters Encounter Description Practice Location Reason(s) For Visit Diagnoses Date Provider Providers Copied on Encounter [facility] - [facility], [address] [place] [address], [id number] , tel:[phone] [facility] No Information 5 Janet Limon. [address], [place] [address], [place], [place], [id number]. tel:[phone] OFFICE/OUTPT EM EST DETAILED/MOD ERATE [address], [address] [place] [address], [id number] , tel:[phone] [facility] insect bite (chief complaint) Allergic dermatitis due to poison yolie 5 Janet Limon. [address], [place] [address], [place], [place], [id number]. tel:[phone] Referring Provider: Ashly Gonzales, [address], [place], [address] . tel:[phone] OFFICE/OUTPT EM EST EXP PROB FOCUS/LOW [address], [address] [place] [address], [id number] , [phone] [facility] back pain (chief complaint) insomnia (chief complaint) Strain of thoracic spineMuscle spasm of backInsomnia 5 Janet Limon. [address], [address], [place], [place], [id number]. tel:[phone] Referring Provider: Ashly Gonzales, [address] [facility], [place], [address] . tel:[phone] OFFICE/OUTPT EM EST EXP PROB FOCUS/LOW [address], [address] [place] [address], [id number] , [place] tel:[phone] [facility] mole (chief complaint) Benign pigmented moleAllergic rhinitisAsthmaTherap eutic drug monitoring 5 Janet Julie. [address], [address], [place], [place], [id number]. tel:[phone] Referring Provider: Ashly Gonzales, [address], [place], [address] . tel:[phone], [address] [place] [address], [id number] , [place] tel:[phone] [facility] No Information 5 Janet Limon. [address] [facility] [address], [address], [place], [place], [id number]. tel:[phone] OFFICE/OUTPT EM EST EXP PROB FOCUS/LOW 15 MINS [facility] - [facility], [address] [place] [address], [id number] , [place] tel:[phone] [facility] Bite(s) (chief complaint) Cat bite of handBite of other animal except arthropod 4 Janet Limon. [address], [place], [place], [id number]. tel:[phone] Referring Provider: Ashly Gonzales, [address], [place], [address] . tel:[phone] OFFICE/OUTPT EM EST EXP PROB FOCUS/LOW [address], [address] [place] [address], [id number] , [place] tel:[phone] [facility] leg pain (chief complaint) back pain (chief complaint) Low back painUnequal leg length 4 Grancristian Webster. [address], [address], [place], [place], [id number]. tel:[phone] Referring Provider: Eleanor Baker [address] [facility] [address], [place], [address] . tel:[phone] Family History Family Member Type Diagnosis Age At Onset No Information Payers Payer name Insurance type Covered green party ID Brandon higgins(s) [employer] - [place] PPO BL [id number] Social History Type Description Quantity Date Captured Comments Alcohol Use Details Unknown Caffeine Use Details Unknown Tobacco Use Status No Information Smoking Status No Information Sex Male Chief Complaint And Reason For Visit No Information Reason For Referral Reason For Referral No Information History Of Present Illness Encounter Date Complaint History Of Prese nt Illness insect bite The symptoms are reported as being mild. Pt thinks that he was bit by a spider behind his left ear. Pt noticed it on Saturday, states that it has spread down his neck and onto his face. lr Pt was working in his yard Saturday and noticed itching insomnia The patient pres ents for insomnia. The patient's symptoms began 2 months ago. Relevant history: time to fall asleep is 3 hours per night, awakenings at night occur 1 times per night and a BMI of 24.67. The patient has the following risk factors for insomnia: age > 40 years. The patient does not have: use of alcohol. The insomnia is worsened by stress. Denies relieving factors. The patient is experiencing difficulty concentrating, difficulty initiating sleep, increased fatigue, irritability, poor or worsening memory and snoring (reported by others). Additional information: Pt is overwhelmed with his job, so he's having a hard time falling asleep at night. Pt hasn't tried anything OTC. lr. back pain Onset: 1 week ag o. The problem is stable. Location of pain is upper back, middle back and lower back.There is no radiation of pain. The patient describes the pain as sharp. Context: twisting movement. Symptoms are aggravated by coughing and sneezing. Symptoms are relieved by heat and ice. Additional information: PT was in his car when he twisted to pick something up, he felt a sharp pain. lr. mole The symptoms beg an 1 month ago. The symptoms are reported as being mild. Pt has a mole on the right side of his forehead that he's had for years. Pt states that about a month ago, the mole started itching and getting bigger. lr Bite(s) The injury is ag gravated by local pressure and movement. The injury is associated with decreased mobility, localized swelling and rash. The patient denies any abdominal pain, change in appetite, diarrhea, fever, generalized weakness, headache, nausea or vomiting. Additional information: Pt states that he was bite on hand by a stray cat. Pt states he cleaned bite.tlb. back pain Onset: 6 days ag o. The problem is worsening. It occurs persistently. Location of pain is lower back. Pain is radiated to the left calf. Symptoms are aggravated by bending, changing positions and walking. The patient denies relieving factors. Additional information: left side low back pain, radiates to left lower leg. leg pain Onset: 6 days ag o. Severity level is 9. It occurs constantly and is worsening. Location: gonzales. The pain radiates to the back. The pain is stabbing. Context: there is no injury. The pain is aggravated by bending, climbing stairs, movement, sitting and walking. There are no relieving factors. Associated symptoms include joint tenderness and nocturnal pain. Additional information: Pt presents today for referral to physical therapy for left leg pain. Pt states that he has pain that starts at the ankle to the lower back. pt denies injury. Functional Status Date Functional Assessmen t No Information Instructions Date Instruction Additional Infor mation No Information Assessments Type Assessment Date No Information Patient Care Teams Name Effective Dates (start - stop) Status Members No Information
== END 2024-05-27 13:35 | disposition home or self-care (01) ==
PROVIDERS: PCP Internal Medicine; Visit Provider Physician Assistant
DX: M22.2X1 Patellofemoral disorders, right knee (principal); M22.2X2 Patellofemoral disorders, left knee
CPT/HCPCS: 20610; 99213; G2211

== ENCOUNTER → 2024-05-27 12:51 | Outpatient (BNVA) | payer OTHER, SELFPAY | PROVIDERS: PCP Internal Medicine; Visit Provider Physician Assistant | DX: M22.2X1 Patellofemoral disorders, right knee (principal); M22.2X2 Patellofemoral disorders, left knee; M25.561 Pain in right knee; M25.562 Pain in left knee | CPT/HCPCS: 20610; 99212; J1010; J2003 ==

== ENCOUNTER 2024-06-15 14:50 | Outpatient (REF) | payer OTHER, SELFPAY ==
--- OUTSIDE RECORDS SUMMARY | 2024-06-15 16:25 | XMS_ITS | Encounter Summary ---
Author Organization [employer] Address [address] [facility] [address] [place] [address] Care Team Providers Care Pack Master Name Role Phone Jules Escalona MD Primary Care Prov ider Reason for Visit * Reason Comments Med Refill Encounter Details Date Type Department Care Team ([facility] st Contact Info) Description 05/28/2024 Refill [facility] [address] [place] [address] Jules Escalona MD [address] [place], [place] [id number] Social History Tobacco Use Types Packs/Day Years Used Date Smoking Tobacco: Never Passive Smoke Exposure: Never Smokeless Tobacco: Never Alcohol Use Standard Drinks/Week Comments Never 0 (1 standard drink = 0.6 oz pur e alcohol) Depression Answer Date Recorded Patient Health Questionnaire-9 Score 5 07/30/2022 Housing Stability Answer Date Recorded What is your housing situation today? I have vickiglen gutierrez 02/25/[address] you li ve. Do you have problems with any of the following? None of the above 02/25/2023 Food Insecurity Answer Date Recorded Within the past 12 months, y ou worried that your food would run out before you got money to buy more: Never True 02/25/2023 Within the past 12 months,th e food you bought just didn't last and you didn't have enough money to get more: Never True Transportation Answer Date Recorded In the past 12 months, has l ack of transportation kept you from medical appts, meetings, work or from getting things needed for daily living? No 02/25/2023 Utilities Answer Date Recorded In the past 12 months, has t he electric, gas, oil or water company threatened to shut off services in your home? No 02/25/2023 Depression Answer Date Recorded Patient Health Questionnaire-2 Score 2 07/30/2022 Sex and Gender Information Value Date Recorded Sex Assigned at Male 03/12/2022 10:20 AM EDT Legal Sex Male 10:20 AM EDT Gender Identity Male 03/12/2022 10:20 AM EDT Sexual Orientation Straight 03/12/2022 10 :20 AM EDT documented as of this encounter Plan of Treatment Not on file documented as of this encounter Visit Diagnoses Not on filedocumented in this encounter Additional Health Concerns Assessment Noted Time PHQ-9 Depression Total Score: 5 07/31/19 23 8:54 AM EDT documented as of this encounter Care Teams Pack Master Relationship Specialty Start Date End Date Jules Escalona MD [address] [place] [address] PCP - General Internal Medicine 09/07/19 documented as of this encounter
--- OUTSIDE RECORDS SUMMARY | 2024-06-15 16:25 | XMS_ITS | Encounter Summary ---
Author Organization [employer] Address [address] [place] [address] [address] [place] [address] Care Team Providers Care Shock Absorption Floor Layer Name Role Phone Jules Escalona MD Primary Care Prov ider Reason for Visit * Reason Onset Date Comments Nurse Triage 11/06/2022 Encounter Details Date Type Department Care Team ([facility] Contact Info) Description 11/06/2022 Telephone [facility] [address] [place] [address] Jules Escalona MD [address] [place] [address] Nurse Triage Social History Tobacco Use Types Packs/Day Years Used Date Smoking Tobacco: Never Passive Smoke Exposure: Never Smokeless Tobacco: Never Alcohol Use Standard Drinks/Week Comments Never 0 (1 standard drink = 0.6 oz pur e alcohol) Depression Answer Date Recorded Patient Health Questionnaire-9 Score 5 07/30/2022 Depression Answer Date Recorded Patient Health Questionnaire-2 Score 2 07/30/2022 Sex and Gender Information Value Date Recorded Sex Assigned at Male 03/12/2022 10:20 AM EDT Legal Sex Male 10:20 AM EDT Gender Identity Male 03/12/2022 10:20 AM EDT Sexual Orientation Straight 03/12/2022 10 :20 AM EDT COVID-19 Exposure Response Date Recorded In the last 10 days, have yo u been in contact with someone who was confirmed or suspected to have Coronavirus/COVID-19? No / Unsure 10/22/2022 1:14 PM EDT documented as of this encounter Miscellaneous Notes * Telephone Encounter - Meme Villatoro RN - 11/06/2022 4:04 PM EDT Triage call with [employer] [place] [id number] Pt reports blood pressure is up and down and Pt is not prescribed blood pressure medication. Pt BP has been 95/60, 11/06 am 99/55 and yesterday AM BP was 122/87, the highest it has been is 140/95. Pt reports dizziness on occasion and a tiredness , not wanting to do anything. Pt is drinking adequate fluid and is asking to speak with PCP. Tele visit with PCP 830am 11/07 scheduled. Pt advised to have documented BP measurements to tell PCP. Pt agrees. Multiple (2) protocols were used on this call. Disposition for Call: See in Office or Video Visit within 3 Days Protocol Used: Blood Pressure - Low (Adult) Protocol-Based Disposition: See in Office or Video Visit within 3 Days Positive Triage Question: * Brief dizziness or lightheadedness after standing up or eating * All higher-acuity triage questions were negative Care Advice Discussed: * Introduction * Where Can You Go to Get a Blood Pressure Check? * Fall Prevention * Reasons To Call Back - Lightheadedness, weakness, or dizziness occurs - Systolic BP under 90 - You feel sick - You become worse Protocol Used: Blood Pressure - High (Adult) Protocol-Based Disposition: See in Office or Video Visit within 2 Weeks Positive Triage Question: * Systolic BP >= 130 OR Diastolic >= 80, and is not taking BP medications * All higher-acuity triage questions were negative * Telephone Encounter - Juanita Craig - 11/06/2022 3:33 PM EDT Symptom: High Blood Pressure - Caller Reports Outcome: Schedule an urgent appointment (within 1 hour) or talk to a nurse or provider soon Reason: Getting worse The caller accepted this outcome (Polish speaker) documented in this encounter Plan of Treatment Not on file documented as of this encounter Visit Diagnoses Not on filedocumented in this encounter Additional Health Concerns Assessment Noted Time PHQ-9 Depression Total Score: 5 07/31/19 23 8:54 AM EDT documented as of this encounter Care Teams Shock Absorption Floor Layer Relationship Specialty Start Date End Date Jules Escalona MD [address] [place] [address] PCP - General Internal Medicine 09/07/19 documented as of this encounter
--- OUTSIDE RECORDS SUMMARY | 2024-06-15 16:25 | XMS_ITS | Encounter Summary ---
Author Organization [id number] [facility] Address [address] [facility] [address] [place] [address] Care Team Providers Care Fire Apparatus Sprinkler Inspector Name Role Phone Jules Escalona MD Primary Care Prov ider Encounter Details Date Type Department Care Team (Latest Contact Info) Description 04/15/2020 Abstract [facility] CONVERSIONS Dental, Provider, DDS Social History Tobacco Use Types Packs/Day Years Used Date Smoking Tobacco: Never Assessed Sex and Gender Information Value Date Recorded Sex Assigned at Male 03/12/2022 10:20 AM EDT Legal Sex Male 10:20 AM EDT Gender Identity Male 03/12/2022 10:20 AM EDT Sexual Orientation Straight 03/12/2022 10 :20 AM EDT documented as of this encounter Plan of Treatment Not on file documented as of this encounter Visit Diagnoses Not on filedocumented in this encounter Care Teams Fire Apparatus Sprinkler Inspector Relationship Specialty Start Date End Date Jules Escalona MD [address] [facility] [place] [address] PCP - General Internal Medicine 09/07/19 documented as of this encounter
--- OUTSIDE RECORDS SUMMARY | 2024-06-15 16:25 | XMS_ITS | Encounter Summary ---
Author Organization [employer] Address [address] [facility] [address] [place] [address] Care Team Providers Care Industrial Pipefitter Journeyman Name Role Phone Jules Escalona MD Primary Care Prov ider Encounter Details Date Type Department Care Team ([facility] Contact Info) Description 08/10/2022 Orders Only [facility] [address] [place] [address] Jules Escalona MD [address] [place] [address] Social History Tobacco Use Types Packs/Day Years Used Date Smoking Tobacco: Never Smokeless Tobacco: Never Depression Answer Date Recorded Patient Health Questionnaire-9 [...] suspected to have Coronavirus/COVID-19? No / Unsure 08/07/2022 10:19 AM EDT documented as of this encounter Plan of Treatment Not on file documented as of this encounter Visit Diagnoses Not on filedocumented in this encounter Additional Health Concerns Assessment Noted Time PHQ-9 Depression Total Score: 5 07/31/19 23 8:54 AM EDT documented as of this encounter Care Teams Industrial Pipefitter Journeyman Relationship Specialty Start Date End Date Jules Escalona MD [address] [place] [address] PCP - General Internal Medicine 09/07/19 documented as of this encounter
--- OUTSIDE RECORDS SUMMARY | 2024-06-15 16:25 | XMS_ITS | Data Portability ---
Author Organization [employer] Address [address] [place] [address] Care Team Providers Care Burn Table Operator Name Role Phone [facility] Referring Provider [phone] [facility] Referring Provider Assessment Encounter Date Assessment Date Assessment LastModified by Organization Details LastModified Time 09/29/2021 09/29/2021 I have reviewed and agree with the assessment and plan as documented by the suit attendant. I provided real time medical direction for this encounter and was immediately available to provide additional phone based assistance as needed. History as noted by suit attendant. Pt with history of chest pain and [...] en route to the ED. In the [facility] ED, the pt reportedly did not want [...] his son drive him now to the [facility] ED (pt does not want to return to [facility]). btils Not available 09/29/2021 16:14:40 01/10/2022 01/10/2022 I have reviewed and agree with the assessment and plan as documented by the suit attendant. I provided real time medical direction for this encounter and was immediately available to provide additional phone based assistance as needed. History as noted by suit attendant. Pt with long history of chronic pain [...] denies renal issues. 1) CAM ketorolac by suit attendant 2) lidocaine gel to pharmacy 3) diclofenac gel to pharmacy 4) [facility] 02/01/2022 18:25:27 08/13/2022 08/13/2022 As noted, we wer e called to see this patient regarding concerns of chest pain. Evaluation in the field was performed by my suit attendant colleague, as noted above, I provided real-time [...] patient had a negative stress test at [facility] several months ago. Despite this, the presentation [...] Assessment and Plan as documented by the Computer Programming Manager. Patient given the opportunity to ask questions. [...] None recorded. [facility] [address] [place] [address], [id number], 16:15:33 [facility] [address] [place] [address], [phone], 10:43:33 electrocard iogram 2022 023 [facility], [address] [place] [address], [phone], 4 05:00:54 Medication Orders ketorolac 30 mg/mL injection solution 2021 btils Not available 10:34:50 ondansetron 4 mg disintegrat ing tablet 2021 btils Not available 10:34:50 ketorolac 30 mg/mL (1 mL) injection solution 2021 atilhou Not available 18:14:55 Aspercreme (lidocaine HCl) 4 % topical 2021 [id number], [address], [place], [id number], 18:21:17 diclofenac 1 % topical gel 2021 [id number], [address], [place], [id number], 18:21:57 aspirin 325 mg tablet 2022 023 [facility][id number], [address] , [place], [place], [phone], 18:58:01 Patient TargetsNo targets recorded. Patient InstructionsNo instructions recorded. Reason for Referral None Reported. Results Created Date Observation Date Name Description Value Unit Range Abnormal Flag Note LastModifiedBy Organization Detail LastModifiedTime 09/30/19 22 09/29/2021 elect rocar diogr am No observ ation record ed. [facility] [address] [place] [address], [phone], 09/29/2021 16:15:30 01/11/20 22 01/10/2022 elect rocar diogr am No observ ation record ed. [facility] [address] [place] [address], [phone], 01/10/2022 10:43:30 11/28/19 23 11/29/2022 elect rocar diogr am No observ ation record ed. [email or web address] - [facility] [address] [place] [address], [phone], 11/29/2022 10:41:51 Result Notes None recorded. Procedures Surgical History None recorded. Imaging Results Imaging Date Name Status LastModified by Organization Details LastModified Time 09/29/2021 electrocardiogram completed [facility] Main - [facility] [address] [place] [address], [phone], 09/29/2021 16:15:30 01/10/2022 [facility]cardiogram [facility] [address] [place] [address], [phone], 01/10/2022 10:43:30 11/29/2022 electrocardiogram completed [email or web address] Main - [facility] [address] [place] [address], [phone], 11/29/2022 10:41:51 Procedure Notes None recorded. Medical [...] /min 110 mm[Hg] 74 mm[Hg] Not Available [employer] 2 14:41:44 Date Recorded Body temperature Body weight Heart rate Respiratory rate Body height Oxygen saturation Oxygen saturation in Arterial blood by Pulse oximetry Systolic blood pressure Diastolic blood pressure Provider Name and Address Organization Details Last Updated DateTime 3 97.6 [degF] 87950.6 g 79 /min 16 /min 162.56 cm 96 % 96 % 117 mm[Hg] 85 mm[Hg] Not Available [employer] 3 21:43:02 Date Recorded Body temperature Heart [...] /min 18 /min 98 % 98 % 47841.6 g 162.56 cm 98.6 [degF] 98 % 98 % 81303.6 g 18 /min 98 /min 162.56 cm 114 mm[Hg] 80 mm[Hg] 114 mm[Hg] 80 mm[Hg] Not Available [employer] 2 11:17:56 Date Recorded Body temperature Heart rate Oxygen saturation Oxygen saturation in Arterial blood by Pulse oximetry Respiratory rate Body weight Body height Systolic blood pressure Diastolic blood pressure Provider Name and Address Organization Details Last Updated DateTime 2 97.9 [degF] 92 /min 97 % 97 % 18 /min 93680.5 6 g 162.56 cm 119 mm[Hg] 81 mm[Hg] Not Available [employer] 2 18:06:29 Date Recorded Heart rate Respiratory [...] /min 14 /min 97 % 97 % 22012.5 6 g 99.3 [degF] 97 % 97 % 14 /min 99.3 [degF] 92 /min 49687.5 6 g 114 mm[Hg] 73 mm[Hg] 114 mm[Hg] 73 mm[Hg] Not Available [employer] 3 18:47:22 Social History None recorded. Functional Status None recorded. Mental Status None recorded. Family History Nothing Reported. Medical History No medical history recorded. Past Encounters Encounter ID Performer Location Encounter Start Date Encounter Closed Date Diagnosis/Indication Diagnosis SNOMED-CT Code Diagnosis ICD10 Code Diagnosis Note [id number] Noah Forbes MD [address] [address] 07/13/2021 13:11:34 12/27/2021 13:01:01 Dry cough 89637586 R05.9 [id number] Antonio Dove MD Main [address] [address] 09/29/2021 14:41:35 02/13/2022 09:59:05 Chest pain 87771371 R07.9 [id number] Antonio Dove MD [address] [address] 01/10/2022 10:28:17 02/13/2022 12:36:46 Chest pain [id number] R07.9 [id number] Deanne Rod MD Main - [address] [address] 02/01/2022 18:06:26 02/06/2022 14:02:54 Musculoskeletal pain [id number] M79.10 [id number] AGAPITO MYERS MD Main - [facility] [address] [place] [phone] 08/13/2022 18:23:25 08/14/2022 22:49:15 Chest pain 02464044 R07.9 [id number] Odalys Díaz MD Main - [facility] [address] [place] [address] 11/27/2022 21:42:53 11/28/2022 09:09:55 Palpitations 34055275 R00.2 Health Concerns Section Related Observation LastModified [...] (MEDICARE REPLACEMENT/AD VANTAGE - HMO) Pedrito Fulton [id number] Pedrito Fulton 01/10/2022 1 [employer] - DOS PRIOR TO 2022 - DUAL ELIGIBLE (MEDICARE REPLACEMENT/AD VANTAGE - HMO) Pedrito Fulton [id number] Pedrito Fulton 02/01/2022 1 [employer] - DOS PRIOR TO 2022 - DUAL ELIGIBLE (MEDICARE REPLACEMENT/AD VANTAGE - HMO) Pedrito Fulton [id number] Pedrito Fulton 08/13/2022 1 [employer] - DOS PRIOR TO 2022 - DUAL ELIGIBLE (MEDICARE REPLACEMENT/AD VANTAGE - HMO) Pedrito Fulton [id number] Pedrito Fulton 11/27/2022 1 [employer] - DOS ON OR AFTER 2022 - DUAL ELIGIBLE - PRISON OPTIONS AND ONE CARE (MEDICARE REPLACEMENT/AD VANTAGE - HMO) Pedrito Fulton [id number] Pedrito Fulton Notes Date Note Type Note Provider Name and Address Organization Details Recorded Time 09/29/2021 text/html This was a supervised home visit with suit attendant Adrian Dan. HPI: REvisit from this AM> [...] ................... ................... ................... ................... ................... ................... ........ Computer Programming Manager Note: Pt complaint of left sided chest/arm/leg pain x5 months. Describes it as burning. EKG. [employer] contacted. Pt was advised to go to ED via ambulance. Pt stated he would have his son take him to [facility]. ................... ................... ................... ................... ................... ................... ................... ........ Disposition: Fulfilled Antonio Dove MD [address] [facility],[address], [place], [address], ABDELRAHMAN ALONZO 09/29/2021 16:16:31 01/10/2022 text/html This was a supervised home visit with suit attendant Elba Lopez. HPI: Member said he is having left arm pain and left chest pain. He refused to go the emergency and he said insted usually come and give him some medicationsl History of spinal stenosis Allergic Benadryl and Tramadol ................... ................... ................... ................... ................... ................... ................... ........ CRC Nursing Assessment: Comments: [facility] emailed CP , awaiting response if member is safe to wait overnight Spoke with member who has chronic chest pain, member has had cardiac work up in the past and continues to work with a internet e commerce specialist to determine why member has pain . Member is awaiting stress test and other tests in the future. Daughter is with member and stated this is his normal baseline and he is safe an stable but they are aware of when to call 911 ................... ................... ................... ................... ................... ................... ................... ........ Computer Programming Manager Note: Sent to a call for a [...] the past. 12 lead ECG: uploaded to [employer]. Pt denies sob, v/d, abd pain, fever or loc. BP:114/80, P:98, RR:18, SpO2:98%, T:98.6; Lung sounds: clear bilaterally; Abdomen: soft, non-tender; Skin: pink, warm, dry; [facility] orders Toradol 30mg IM; Zofran 4mg ODT; Toradol and Zofran administered without incident. Pt advised to follow up with PCP. Red flags discussed. Pt has no further questions. ................... ................... ................... ................... ................... ................... ................... ........ Disposition: Fulfilled Antonio Dove MD [address] [place] [address],[address], [place], [address], [employer] 01/10/2022 11:27:39 02/01/2022 text/html HPI: Member has [...] NOT NEED FURTHER INFO Deanne Rod MD [address] [facility],[address], [place], [phone], [employer] 02/01/2022 18:25:58 08/13/2022 text/html HPI: Member's daughter Lexi called into the CRU in behalf of her father Pedrito. Lexi states that Pedrito is complaining of nausea, dizziness and his BP is elevated. Lexi does not have the recorded BP. she states Pedrito is mostly Australian speaking. She is asking for an [employer] visit. ................... ................... ................... ................... ................... ................... ................... ........ CRC Nursing Assessment: Comments: RN spoke to member via interpreter and translator. BP 91/70 today at 5 min ago. [...] ................... ................... ................... ................... ................... ................... ........ Computer Programming Manager Note From Melquiades Rhodes: Pt complains of left anterior chest pain that radiates down his left arm. Pt reports that he was seen at [facility] on 08/10 for the same complaint and was discharged home with no diagnosis. Pt reports that pain has steadily grown worse over the weekend and is sharp in nature rating the pain /10. Pt denies change to pain with movement [...] diagnostic for STEM NSR with no ectopy. [facility] contacted who agreed that pt should be sent back to ED for cardiac work up and 911 was initiated . Pt administered 324 MG ASA PO and pt care was transferred to [facility] for transport back to ED. ................... ................... ................... ................... ................... ................... ................... ........ Disposition: Basilio MYERS MD [address] [facility],[address], [place], [address], [employer] 08/13/2022 18:58:40 11/27/2022 text/html HPI: anxiety, heart palpatations ................... ................... ................... ................... ................... ................... ................... ........ CRC Nursing Assessment: Comments: Call to member via [employer] [phone] for additional information. Member who feels anxious, [...] ................... ................... ................... ................... ................... ................... ........ Computer Programming Manager Note From Clive Del Valle: Mobile health [...] ................... ................... ........ Disposition: Basilio Díaz MD [address] [place] [address],[address], [place], [address], [employer] - [employer]DEL[employer]HMAN ARCE 11/27/2022 21:46:07
--- OUTSIDE RECORDS SUMMARY | 2024-06-15 16:25 | XMS_ITS | Encounter Summary ---
Author Organization [employer] Address [address] [facility] [address] [place] [address] Care Team Providers Care Water Valve Repairer Name Role Phone Jules Escalona MD Primary Care Prov ider Encounter Details Date Type Department Care Team ([facility] st Contact Info) Description 08/29/2023 Orders Only [facility] MEDICINE [address] [place] [address] ProviderFredy MD Social History Tobacco Use Types Packs/Day Years Used Date Smoking Tobacco: Never Passive Smoke Exposure: Never Smokeless Tobacco: Never Alcohol Use Standard Drinks/Week Comments Never 0 (1 standard drink = 0.6 oz pur e alcohol) Depression Answer Date Recorded Patient Health Questionnaire-9 Score 5 07/30/2022 Housing Stability Answer Date Recorded What is your housing situation today? I have vicki gutierrez 02/25/[address] you [...] on file documented as of this encounter Procedures Procedure Name Priority Date/Time Associated Diagnosis Comments COLONOSCOPY Routine 07/05/2023 8:17 AM EST HM COLONOSCOPY Routine 08/04/2013 8:19 AM EDT documented in this encounter Results * Colonoscopy (07/05/2023 8:17 AM EST) us Historical Provider HEALTH MAINTENANCE Final Result * Colonoscopy (08/04/2013 8:19 AM EDT) Colonoscopy Normal Normal Narrative EsperanzaMona stratton - 08/04/2013 8:19 AM EDT Pathology report unavailable for upload but recent GI notes state that 2013 colonoscopy was normal us Historical Provider HEALTH MAINTENANCE Edited Result - Final documented in this encounter Visit Diagnoses Not on filedocumented in this encounter Additional Health Concerns Assessment Noted Time PHQ-9 Depression Total Score: 5 07/31/19 23 8:54 AM EDT documented as of this encounter Care Teams Water Valve Repairer Relationship Specialty Start Date End Date CarcamoJules Huff MD [address] [place] [address] PCP - General Internal Medicine 09/07/19 documented as of this encounter
--- OUTSIDE RECORDS SUMMARY | 2024-06-15 16:25 | XMS_ITS | Encounter Summary ---
Author Organization [facility] [facility] Address [address] [facility] [address] [place] [address] Care Team Providers Care Billet Driller Name Role Phone Jules Escalona MD Primary Care Prov ider Encounter Details Date Type Department Care Team (Latest Contact Info) Description 01/23/2022 Abstract [facility] CONVERSIONS Dental, Provider, [...] on filedocumented in this encounter Care Teams Billet Driller Relationship Specialty Start Date End Date Jules Escalona MD [address] [place] [address] PCP - General Internal Medicine 09/07/19 documented as of this encounter
--- OUTSIDE RECORDS SUMMARY | 2024-06-15 16:25 | XMS_ITS | Clinical Summary ---
Author Organization [address] [facility] Address [address] [place] [address] Phone Care Team Providers Care Silver Service Waiter Name Role Phone Jules Escalona Primary Care Provide r Allergies Active Allergy Reactions Criticality Noted Date Comments Diphenhydramine Hcl 03/24/2024 Medications Medication Sig Dispensed Refills Start Date End Date Status acetaminophen (TYLENOL) 500 mg tablet Take 1 tablet (500 mg total) by mouth every 6 (six) hours if needed for mild pain. Active amitriptyline (ELAVIL) 50 mg tablet Take 1 tablet (50 mg total) by mouth at bedtime. Active atorvastatin (LIPITOR) 40 mg tablet Take 1 tablet (40 mg total) by mouth at bedtime. Active baclofen (LIORESAL) 10 mg tablet Take 1 tablet (10 mg total) by mouth 3 (three) times a day. Active cetirizine (ZyrTEC) 10 mg chewable tablet Chew 1 tablet (10 mg total) 1 (one) time each day. Active cholestyramine (QUESTRAN) 4 gram powder Take 1 packet (4 g total) by mouth 3 (three) times a day with meals. Active cyclobenzaprine (FLEXERIL) 10 mg tablet Take 1 tablet (10 mg total) by mouth 3 (three) times a day if needed for muscle spasms. Active diclofenac (VOLTAREN) 1 % topical gel Apply topically 4 (four) times a day. Active dicyclomine (BENTYL) 20 mg tablet Take 1 tablet (20 mg total) by mouth 4 (four) times a day (before meals and nightly). Active famotidine (PEPCID) 40 mg tablet Take 1 tablet (40 mg total) by mouth. Active FLUoxetine (PROzac) 40 mg capsule Take 1 capsule (40 mg total) by mouth 1 (one) time each day. Active fluticasone propionate (FLONASE) 50 mcg/actuation nasal spray Administer 1 spray into each nostril 1 (one) time each day. Shake gently. Before first use, prime pump. After use, clean tip and replace cap. Active lidocaine (LMX) 4 % cream Apply topically 4 (four) times a day if needed for mild pain. Active mirtazapine (REMERON) 7.5 mg tablet Take 1 tablet (7.5 mg total) by mouth at bedtime. Active naloxone (NARCAN) 4 mg/0.1 mL nasal spray Administer 1 each (4 mg total) into affected nostril(s) if needed for opioid reversal. Give 4 mg (1 spray) into one nostril. May repeat every 2-3 minutes if needed, alternating nostrils, until medical assistance becomes available. Active pregabalin (LYRICA) 100 mg capsule Take 1 capsule (100 mg total) by mouth 2 (two) times a day. Max Daily Amount: 200 mg Active traZODone (DESYREL) 150 mg tablet Take 1 tablet (150 mg total) by mouth at bedtime. 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 Dysuria 03/18/2024 Dysphagia 03/18/2024 Chronic low back pain 03/18/2024 Encounters Date Type Department Care Team Description 03/24/2024 1:00 PM EST Consult Orthopedic Surgery - [address] [phone] Sky Kaplan, WALTER Diabetic mononeuropathy simplex (CMS/HCC) (Primary Dx); Dermatophytosis of nail; Pain in toe of right foot; Pain in toe of left foot; Metatarsalgia of both feet; Type II diabetes mellitus with peripheral circulatory disorder (CMS/HCC) from Last 3 Months Social History Tobacco Use Types Packs/Day Years Used Date Smoking Tobacco: Never Assessed Sex and Gender Information Value Date Recorded Sex Assigned at Not on file Gender Identity Not on file Sexual Orientation Not on file Job Start Date Occupation Industry Not on file Not on file Not on file Last Filed Vital Signs Vital Sign Reading Time Taken Comments Blood Pressure - - Pulse - - Temperature - - Respiratory Rate - - Oxygen Saturation - - Inhaled Oxygen Concentration - - Weight 82.4 kg (181 lb 9.6 oz) 03/24/2024 12:57 PM EST Height 162.6 cm (5' 4 ) 03/24/2024 12:57 PM EST Body Mass Index 31.17 03/24/2024 12:57 PM EST Plan of Treatment Upcoming Encounters Date Type Department Care Team (Late st Contact Info) Description 06/24/2024 9:30 AM EST Office Visit Orthopedic Surgery - [place] [address] [phone] Sky Kaplan, DPM [address] [address] Health Maintenance Due Date Last Done Comments Diabetes: Annual GFR (Glomerular Filtration Rate) 1960 Diabetes: Annual Foot Exam 1970 Diabetes: Annual Retina Eye Exam 1970 Pneumococcal Vaccine: Pediatrics (0 to 5 Years) and At-Risk Patients (6 to 64 Years) (2 of 2 - PCV) 03/08/2017 03/08/2016 RSV Immunization Patients 60+ Years Old (1 - Risk 60-74 years 1-dose series) 2020 COVID-19 Vaccine ( season) 2024 05/03/2021, 10/04/2020 Colorectal Cancer Screening: Colonoscopy 02/14/2024 Depression Screening 02/14/2024 07/30/2022 HIV Screening 02/14/2024 Social Influencers of Health Screening 02/14/2024 Diabetes: Annual Urine Albumin-Creatinine Ratio (uACR) 03/24/2024 Diabetes: Blood Sugar Control Test (HGBA1C) 03/24/2024 06/21/2023 DTaP,Tdap,and Td Vaccines (3 - Td or Tdap) 04/02/2027 04/02/2017, 11/19/2016 Cholesterol Screening (Lipid Panel) 06/21/2028 06/21/2023 Hepatitis C Screening Completed 07/30/2022 Zoster Vaccines Completed 08/16/2023, 06/21/2023 Influenza Vaccine Completed 02/21/2024, , 08/03/2022, Additional history exists HIB Vaccines Aged Out No longer eligi ble based on patient's age to complete this topic HPV Vaccines Aged Out No longer eligi ble based on patient's age to complete this topic Hepatitis A Vaccines Aged Out No long er eligible based on patient's age to complete this topic Hepatitis B Vaccines Aged Out No long er eligible based on patient's age to complete this topic IPV Vaccines Aged Out No longer eligi ble based on patient's age to complete this topic MMR Vaccines Aged Out No longer eligi ble based on patient's age to complete this topic Meningococcal ACWY Vaccine Aged Out N o longer eligible based on patient's age to complete this topic RSV Immunization Patients Under 20 months Aged Out No longer eligible based on patient's age to complete this topic Varicella Vaccines Aged Out No longer eligible based on patient's age to complete this topic Care Teams Silver Service Waiter Relationship Specialty Start Date End Date Jules Escalona [address] [place], [place] PCP - General 01/02/24
--- OUTSIDE RECORDS SUMMARY | 2024-06-15 16:25 | XMS_ITS | Encounter Summary ---
Author Organization [employer] Address [address] [facility] [address] [place] [address] Care Team Providers Care Parts Salvager Name Role Phone Jules Escalona MD Primary Care Prov ider Encounter Details Date Type Department Care Team (Latest Contact Info) Description 06/09/2024 Travel Social History Tobacco Use Types Packs/Day Years [...] documented as of this encounter Care Teams Parts Salvager Relationship Specialty Start Date End Date Jules Escalona MD [address] [place] [address] PCP - General Internal Medicine 09/07/19 documented as of this encounter
--- OUTSIDE RECORDS SUMMARY | 2024-06-15 16:25 | XMS_ITS | Encounter Summary ---
Author Organization [employer] [facility] Address [address] [facility] [address] [place] [address] Care Team Providers Care Purchasing Department Clerk Name Role Phone Jules Escalona MD Primary Care Prov ider Encounter Details Date Type Department Care Team (Latest Contact Info) Description 02/23/2021 Abstract [facility] CONVERSIONS Dental, Provider, DDS Social History [...] on filedocumented in this encounter Care Teams Purchasing Department Clerk Relationship Specialty Start Date End Date Jules Escalona MD [address] [facility] [place] [address] PCP - General Internal Medicine 09/07/19 documented as of this encounter
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
--- OUTSIDE RECORDS SUMMARY | 2024-06-15 16:25 | XMS_ITS | Encounter Summary ---
Author Organization [employer] Address [address] [facility] [address] 7[address] [place] [address] Care Team Providers Care Public Health Training Assistant Name Role Phone Jules Escalona MD Primary Care Prov ider Encounter Details Date Type Department Care Team ([facility] Contact Info) Description 10/14/2023 Telephone [facility] ADULT DENTAL [address] [place] [address] Sherine Ramirez DMD Social History Tobacco Use Types Packs/Day Years [...] AM EDT documented as of this encounter Miscellaneous Notes * Telephone Encounter - Nighat Lowry - 10/14/2023 1:31 PM EDT Patient is in a lot pain his asking if u can send something for pain his apt with Dr Sanon is documented in this encounter Plan of Treatment Not on file documented as of this encounter Visit Diagnoses Not on filedocumented in this encounter Additional Health Concerns Assessment Noted Time PHQ-9 Depression Total Score: 5 07/31/19 23 8:54 AM EDT documented as of this encounter Care Teams Public Health Training Assistant Relationship Specialty Start Date End Date Jules Escalona MD [address] [place] [id number] PCP - General Internal Medicine 09/07/19 documented as of this encounter
--- OUTSIDE RECORDS SUMMARY | 2024-06-15 16:25 | XMS_ITS | Encounter Summary ---
Author Organization [employer] Address [address] [facility] 7t [place] [address] Care Team Providers Care Steeple Jack Name Role Phone Jules Escalona MD Primary Care Prov ider Reason for Visit * Reason Comments Med Refill Encounter Details Date Type Department Care Team ([facility] Contact Info) Description 06/23/2023 Refill [facility] CHC MED & PEDS [address] [place] [address] Margie Martínez MD [address] [place] [address] Irritable bowel syndrome with both constipation and diarrhea; Delayed gastric emptying Social History Tobacco Use Types Packs/Day Years [...] documented as of this encounter Visit Diagnoses Diagnosis Irritable bowel syndrome with both constipation and diarrhea Delayed gastric emptying Dyspepsia and other specified disorders of function of stomach documented in this encounter Additional Health Concerns Assessment Noted Time PHQ-9 Depression Total Score: 5 07/31/19 23 8:54 AM EDT documented as of this encounter Care Teams Steeple Jack Relationship Specialty Start Date End Date Jules Escalona MD [address] [place] [id number] PCP - General Internal Medicine 09/07/19 documented as of this encounter
--- OUTSIDE RECORDS SUMMARY | 2024-06-15 16:25 | XMS_ITS | Encounter Summary ---
Author Organization [employer] Address [address] [facility] 7t [place] [address] Care Team Providers Care Inspector Final Assembly Electrical Name Role Phone Jules Escalona MD Primary Care Prov ider Reason for Visit * Reason Comments Med Refill Encounter Details Date Type Department Care Team ([facility] st Contact Info) Description 10/15/2023 Refill [facility] CHC MED & PEDS [address] [place], [place] [phone] Jules Escalona MD [address] [place] [address] Delayed gastric emptying Social History Tobacco Use [...] as of this encounter Visit Diagnoses Diagnosis Delayed gastric emptying Dyspepsia and other specified disorders of function of stomach documented in this encounter Additional Health Concerns Assessment Noted Time PHQ-9 Depression Total Score: 5 07/31/19 23 8:54 AM EDT documented as of this encounter Care Teams Inspector Final Assembly Electrical Relationship Specialty Start Date End Date Jules Escalona MD [address] [place] [id number] PCP - General Internal Medicine 09/07/19 documented as of this encounter
--- OUTSIDE RECORDS SUMMARY | 2024-06-15 16:25 | XMS_ITS | Encounter Summary ---
Author Organization [employer] Address [address] [facility] 7t [place] [address] Care Team Providers Care Scale And Skip Car Operator Name Role Phone Jules Escalona MD Primary Care Prov ider Reason for Visit * Reason Onset Date Comments left small partial in office 01/31/2023 Encounter Details Date Type Department Care Team ([facility] st Contact Info) Description 01/31/2023 Telephone [facility] ADULT DENTAL [address] [place] [address] Aston Espinoza DDS [address] [place] [address] left small partial in office Social History Tobacco Use Types Packs/Day Years [...] encounter Miscellaneous Notes * Telephone Encounter - Ami Roblero - 01/31/2023 2:53 PM EDT Patient called in stating that he believes he may have left his small partial in office when he hadhis extraction done. Any insight on whether it was found in office? documented in this encounter Plan of Treatment Not on file documented as of this encounter Visit Diagnoses Not on filedocumented in this encounter Additional Health Concerns Assessment Noted Time PHQ-9 Depression Total Score: 5 07/31/19 23 8:54 AM EDT documented as of this encounter Care Teams Scale And Skip Car Operator Relationship Specialty Start Date End Date Jules Escalona MD [address] [place] [id number] PCP - General Internal Medicine 09/07/19 documented as of this encounter
--- OUTSIDE RECORDS SUMMARY | 2024-06-15 16:25 | XMS_ITS | Encounter Summary ---
Author Organization [employer] Address [address] [facility] 7t [place] [address] Care Team Providers Care Electronic Scanner Operator Name Role Phone Jules Escalona MD Primary Care Prov ider Reason for Visit * Reason Comments Med Refill Encounter Details Date Type Department Care Team ([facility] st Contact Info) Description 06/05/2024 Refill [facility] CHC MED & PEDS [address] [place] [address] Jules Escalona MD [address] [place] [address] Seasonal allergies Social History Tobacco Use Types Packs/Day Years [...] as of this encounter Visit Diagnoses Diagnosis Seasonal allergies Allergic rhinitis, cause unspecified documented in this encounter Additional Health Concerns Assessment Noted Time PHQ-9 Depression Total Score: 5 07/31/19 23 8:54 AM EDT documented as of this encounter Care Teams Electronic Scanner Operator Relationship Specialty Start Date End Date Jules Escalona MD [address] [place] [address] PCP - General Internal Medicine 09/07/19 documented as of this encounter
--- OUTSIDE RECORDS SUMMARY | 2024-06-15 16:25 | XMS_ITS | Encounter Summary ---
Author Organization [employer] [facility] Address [address] [facility] 7t [place] [address] Care Team Providers Care Sheet Metal Apprentice Name Role Phone Jules Escalona MD Primary Care Prov ider Encounter Details Date Type Department Care Team (Latest Contact Info) Description 04/29/2019 Abstract [facility] CONVERSIONS Dental, Provider, DDS Social History [...] on filedocumented in this encounter Care Teams Sheet Metal Apprentice Relationship Specialty Start Date End Date Jules Escalona MD [address] [facility] [address] PCP - General Internal Medicine 09/07/19 documented as of this encounter
--- OUTSIDE RECORDS SUMMARY | 2024-06-15 16:25 | XMS_ITS | Encounter Summary ---
Author Organization [employer] Address [address] [facility] 7[address] [place] [address] Care Team Providers Care Paint Line Supervisor Name Role Phone Jules Escalona MD Primary Care Prov ider Reason for Visit * Reason Comments Med Refill Encounter Details Date Type Department Care Team ([facility] st Contact Info) Description 06/02/[address] [facility] CHC MED & PEDS [address] [place], [place] [phone] Jules Escalona MD [address] [place] [address] Recurrent major depressive disorder, in partial remission (CMS/HCC); Irritable bowel syndrome with both constipation and diarrhea Social History Tobacco Use Types Packs/Day Years [...] as of this encounter Visit Diagnoses Diagnosis Recurrent major depressive disorder, in partial remission (CMS/HCC) Irritable bowel syndrome with both constipation and diarrhea documented in this encounter Additional Health Concerns Assessment Noted Time PHQ-9 Depression Total Score: 5 07/31/19 23 8:54 AM EDT documented as of this encounter Care Teams Paint Line Supervisor Relationship Specialty Start Date End Date Jules Escalona MD [address] [place] [id number] PCP - General Internal Medicine 09/07/19 documented as of this encounter
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
[2024-06-15 18:11] LABS: Alanine Aminotransferase 48 U/L (0-40); Albumin Level 4.4 g/dL (3.5-5.0); Alkaline Phosphatase 83 U/L (39-117); Anion Gap 11 (12-20); Aspartate Amino Transferase 40 U/L (5-37); Bilirubin Total 0.3 mg/dL (0.0-1.0); Blood Urea Nitrogen 12 mg/dL (9-16); Calcium 9.4 mg/dL (8.4-10.2); Carbon Dioxide 30 mmol/L (22-29); Chloride 102 mmol/L (96-108); Estimated Glomerular Filt Rate > 60; Glucose Random 61 mg/dL (60-115); Potassium 3.6 mmol/L (3.3-5.1); Sodium 139 mmol/L (135-145); Total Protein 8.1 g/dL (6.5-8.0)
[2024-06-16 07:47] LABS: Estimated Average Glucose 128 mg/dL; Hemoglobin A1C 177.7252 umol/L; Hemoglobin A1c % 6.1 % (<6.0); Total Hemoglobin (HGBA1C) 4135.2915 umol/L
== END 2024-06-15 14:51 | disposition home or self-care (01) ==
LOC: HO.CHCLDS 14:50
PROVIDERS: Visit Provider Internal Medicine
DX: R03.0 Elevated blood-pressure reading, without diagnosis of hypertension (principal); R73.03 Prediabetes
CPT/HCPCS: 36415; 80053; 83036

== ENCOUNTER → 2024-06-25 10:02 | Outpatient (BNV) | payer OTHER, SELFPAY | PROVIDERS: Visit Provider Radiology Diagnostic Radiology | DX: M25.461 Effusion, right knee (principal); M17.11 Unilateral primary osteoarthritis, right knee | CPT/HCPCS: 73721 ==

== ENCOUNTER 2024-06-25 10:08 | Outpatient (REF) | payer OTHER, SELFPAY ==
--- NOTE | ~2024-06-25 | MR_ITS ---
EXAMINATION: MR KNEE WITHOUT CONTRAST, RIGHT CLINICAL INFORMATION: Lateral pain, chronic over 5 years. Unilateral primary osteoarthritis, right knee. COMPARISON: No prior MRI. Right knee x-rays 04/24/2024. TECHNIQUE: MRI of the right knee without contrast was performed using routine sequences on a 1.5 Haydee Siemens high-field scanner. FINDINGS: MENISCI: Medial Meniscus: There is a focus of increased signal at the posterior root entry zone (series 12, image 19), suspicious for mild degenerative tearing. No additional tears of the medial meniscus. Lateral Meniscus: Intact and normal in signal. LIGAMENTS: Anterior Cruciate: Fibers appear intact. Mildly increased associated T2 signal, likely mild intrasubstance degeneration. Posterior Cruciate: Intact and normal in signal. Medial Collateral: Intact and normal in signal. Lateral Collateral Complex: There is increased intrasubstance signal within the conjoined tendon (series 12, image 17), without discrete tear, likely degenerative. Otherwise the fibular collateral ligament, biceps femoris tendon, and popliteus tendon are intact. Arcuate Ligament: Appears intact. EXTENSOR MECHANISM: Intact and normal in signal. PATELLAR RETINACULUM: Intact and normal in signal. The medial patellofemoral ligament is intact. BONE: Normal in signal. There are no regions of edema, or suspicious marrow lesions. There are no foci of subchondral bone plate edema. JOINTS/CARTILAGE: Medial Compartment: Minimal superficial thinning in the urination of the weightbearing femoral and tibial cartilage. No defects. No subchondral bone plate edema. There are tiny marginal osteophytes. Lateral Compartment: Minimal chondrocalcinosis in the lateral tibial plateau cartilage. Minimal thinning in the urination of the weightbearing femoral cartilage. No focal cartilaginous defects. No subchondral bone plate edema. There are tiny marginal osteophytes. Patellofemoral Compartment: There is normal joint space. There is normal trochlear depth. There is a tiny full-thickness cartilage fissure in the medial patellar facet ( series 8, image 10), without subchondral bone plate edema. There is mild thinning of the central trochlear cartilage with a partial-thickness tiny defect (series 8, image 15). JOINT FLUID AND BURSAE: There is a small amount of increased joint fluid. No loose body. There is a small ganglion cyst measuring 1.6 x 1.4 x 0.4 cm just lateral to the insertion of the medial gastrocs tendon (series 10, image 11). Mild increased signal in the prepatellar region may relate to mild prepatellar bursitis. OTHER: The popliteal fossa is normal. There is no Gonzalez's cyst. Minimal increased signal in the medial aspect of the popliteus muscle, possibly degenerative or related to strain injury. Musculature is otherwise normal in signal. MR/MR knee RT wo con IMPRESSION: 1. Increased signal of the medial meniscus posterior root entry zone, likely mild degenerative tear. Menisci are otherwise intact. 2. Small joint effusion. Early degenerative arthritis in the medial and lateral compartments. Minimal arthritis in the patellofemoral compartment. 3. Increased intrasubstance signal and thickening involving the conjoined tendon, likely intrasubstance degeneration. Ligamentous structures otherwise intact. 4. Focus of increased signal within the medial aspect of the popliteus muscle, possibly muscle strain injury versus degenerative. 5. Mildly increased signal in the prepatellar bursa, possibly representing mild bursitis. Electronically signed by: Vinny Treadwell MD 06/25/2024 11:44 AM EST
--- OUTSIDE RECORDS SUMMARY | 2024-06-25 10:50 | XMS_ITS | Encounter Summary ---
Author Organization [employer] [facility] Address [address] [facility] 7t [place] [address] Care Team Providers Care Caving Guide Name Role Phone Jules Escalona MD Primary Care Prov ider Encounter Details Date Type Department Care Team (Latest Contact Info) Description 02/23/2021 Abstract [facility] CONVERSIONS Dental, Provider, DDS Social History Tobacco [...] on filedocumented in this encounter Care Teams Caving Guide Relationship Specialty Start Date End Date Jules Escalona MD [address] [facility] [address] PCP - General Internal Medicine 09/07/19 documented as of this encounter
--- OUTSIDE RECORDS SUMMARY | 2024-06-25 10:50 | XMS_ITS | Encounter Summary ---
Author Organization [employer] Address [address] [facility] [address] [place] [address] Care Team Providers Care Flavorer Name Role Phone Jules Escalona MD Primary Care Prov ider Encounter Details Date Type Department Care Team ([facility] Contact Info) Description 10/14/2023 Telephone [facility] ADULT DENTAL [address] [place] [address] Sherine Ramirez DMD Social History Tobacco Use [...] documented as of this encounter Care Teams Flavorer Relationship Specialty Start Date End Date Jules Escalona MD [address] [place] [phone] PCP - General Internal Medicine 09/07/19 documented as of this encounter
--- OUTSIDE RECORDS SUMMARY | 2024-06-25 10:50 | XMS_ITS | Data Portability ---
Author Organization [email or web address], [place] [employer] Address [address] [place] [address] Care Team Providers Care Director Regulatory Compliance Name Role Phone [facility] PRIMARY [facility] Referring Provider [phone] [facility] Referring Provider Assessment Encounter Date Assessment Date Assessment LastModified by Organization Details LastModified Time 09/29/2021 09/29/2021 I have reviewed and agree with the assessment and plan as documented by the sand shoveler. I provided real time medical direction for this encounter and was immediately available to provide additional phone based assistance as needed. History as noted by sand shoveler. Pt with history of chest pain and [...] en route to the ED. In the [facility] ED, the pt reportedly did not want [...] his son drive him now to the [facility] ED (pt does not want to return to [facility]). btils Not available 09/29/2021 16:14:40 01/10/2022 01/10/2022 I have reviewed and agree with the assessment and plan as documented by the sand shoveler. I provided real time medical direction for this encounter and was immediately available to provide additional phone based assistance as needed. History as noted by sand shoveler. Pt with long history of chronic pain [...] denies renal issues. 1) CAM ketorolac by sand shoveler 2) lidocaine gel to pharmacy 3) diclofenac gel to pharmacy 4) [facility] 02/01/2022 18:25:27 08/13/2022 08/13/2022 As noted, we wer e called to see this patient regarding concerns of chest pain. Evaluation in the field was performed by my sand shoveler colleague, as noted above, I provided real-time [...] patient had a negative stress test at [facility] several months ago. Despite this, the presentation [...] Assessment and Plan as documented by the Eligibility Consultant. Patient given the opportunity to ask questions. [...] recorded. Surgeries None recorded. Imaging electrocard iogram 2022 023 [employer] [facility], [address] [place] [address], [id number], 4 05:00:54 electrocard iogram 2021 022 [employer] [facility], [address] [place] [address], [id number], 2 10:43:33 electrocard iogram 2021 022 [employer] [facility], [address] [place] [address], [id number], 16:15:33 Medication Orders aspirin 325 mg tablet 2022 023 [facility]16816, [address], [place], [id number], 3 18:58:01 ketorolac 30 mg/mL (1 mL) injection solution [address] [facility] Not available 18:14:55 Aspercreme (lidocaine HCl) 4 % topical 2021 [facility] #50724, [address], [place], [id number], 2 18:21:17 diclofenac 1 % topical gel 2021 [facility]10382, [address], [place], [id number], 2 18:21:57 ketorolac 30 mg/mL injection solution 2021 022 [facility] Not available 10:34:50 ondansetron 4 mg disintegrat ing tablet 2021 022 [facility] Not available 10:34:50 Patient TargetsNo targets recorded. Patient InstructionsNo instructions recorded. Reason for Referral None Reported. Results Created Date Observation Date Name Description Value Unit Range Abnormal Flag Note LastModifiedBy Organization Detail LastModifiedTime 09/30/19 22 09/29/2021 elect rocar diogr am No observ ation record ed. btils [facility] [address] [place] [address], [id number], 09/29/2021 16:15:30 01/11/20 22 01/10/2022 elect rocar diogr am No observ ation record ed. btils [facility] - [facility] [address] [place] [address], [id number], 01/10/2022 10:43:30 11/28/19 23 11/29/2022 elect rocar diogr am No observ ation record ed. [email or web address] [facility] - [facility] [address] [place] [address], [id number], 11/29/2022 10:41:51 Result Notes None recorded. Procedures Surgical History None recorded. Imaging Results Imaging Date Name Status LastModified by Organization Details LastModified Time 09/29/2021 electrocardiogram completed btils [facility] [address] [place] [address], [id number], 09/29/2021 16:15:30 01/10/2022 electrocardiogram completed btils [facility] [address] [place] [address], [id number], 01/10/2022 10:43:30 11/29/2022 electrocardiogram completed [email or web address] [facility] - [facility] [address] [place] [address], [id number], 11/29/2022 10:41:51 Procedure Notes None recorded. Medical [...] /min 110 mm[Hg] 74 mm[Hg] Not Available [email or web address] 2 14:41:44 Date Recorded Body temperature Body weight Heart rate Respiratory rate Body height Oxygen saturation Oxygen saturation in Arterial blood by Pulse oximetry Systolic blood pressure Diastolic blood pressure Provider Name and Address Organization Details Last Updated DateTime 3 97.6 [degF] 34714.6 g 79 /min 16 /min 162.56 cm 96 % 96 % 117 mm[Hg] 85 mm[Hg] Not Available [email or web address] 3 21:43:02 Date Recorded Body temperature Heart [...] /min 18 /min 98 % 98 % 87438.6 g 162.56 cm 98.6 [degF] 98 % 98 % 00360.6 g 18 /min 98 /min 162.56 cm 114 mm[Hg] 80 mm[Hg] 114 mm[Hg] 80 mm[Hg] Not Available [email or web address] 2 11:17:56 Date Recorded Body temperature Heart rate Oxygen saturation Oxygen saturation in Arterial blood by Pulse oximetry Respiratory rate Body weight Body height Systolic blood pressure Diastolic blood pressure Provider Name and Address Organization Details Last Updated DateTime 2 97.9 [degF] 92 /min 97 % 97 % 18 /min 84720.5 6 g 162.56 cm 119 mm[Hg] 81 mm[Hg] Not Available [employer] 2 18:06:29 Date Recorded Heart rate Respiratory [...] /min 14 /min 97 % 97 % 66385.5 6 g 99.3 [degF] 97 % 97 % 14 /min 99.3 [degF] 92 /min 06477.5 6 g 114 mm[Hg] 73 mm[Hg] 114 mm[Hg] 73 mm[Hg] Not Available [email or web address] 3 18:47:22 Social History None recorded. Functional Status None recorded. Mental Status None recorded. Family History Nothing Reported. Medical History No medical history recorded. Past Encounters Encounter ID Performer Location Encounter Start Date Encounter Closed Date Diagnosis/Indication Diagnosis SNOMED-CT Code Diagnosis ICD10 Code Diagnosis Note [id number] Noah Forbes MD [address] [id number] 07/13/2021 13:11:34 12/27/2021 13:01:01 Dry cough 66898247 R05.9 [id number] Antonio Dove MD Main [address] [id number] 09/29/2021 14:41:35 02/13/2022 09:59:05 Chest pain [id number] R07.9 [id number] Antonio Dove MD [address] [id number] 01/10/2022 10:28:17 02/13/2022 12:36:46 Chest pain [id number] R07.9 [id number] Deanne Rod MD Main - [address] [address] 02/01/2022 18:06:26 02/06/2022 14:02:54 Musculoskeletal pain [id number] M79.10 [id number] AGAPITO MYERS MD Main - [facility] [address] [place] [id number] 08/13/2022 18:23:25 08/14/2022 22:49:15 Chest pain [id number] R07.9 [id number] Odalys Díaz MD Main - [facility] [address] [place] [id number] 11/27/2022 21:42:53 11/28/2022 09:09:55 Palpitations 83484104 R00.2 Health Concerns Section Related Observation LastModified [...] (MEDICARE REPLACEMENT/AD VANTAGE - HMO) Pedrito Fulton [id number] Pedrito Fulton 01/10/2022 1 [facility] - DOS PRIOR TO 2022 - DUAL ELIGIBLE (MEDICARE REPLACEMENT/AD VANTAGE - HMO) Pedrito Fulton [id number] Pedrito Fulton 02/01/2022 1 [facility] - DOS PRIOR TO 2022 - DUAL ELIGIBLE (MEDICARE REPLACEMENT/AD VANTAGE - HMO) Pedrito Fulton [id number] Pedrito Fulton 08/13/2022 1 [facility] - DOS PRIOR TO 2022 - DUAL ELIGIBLE (MEDICARE REPLACEMENT/AD VANTAGE - HMO) Pedrito Fulton [id number] Pedrito Fulton 11/27/2022 1 [facility] - DOS ON OR AFTER 2022 - DUAL ELIGIBLE - [facility] AND ONE CARE (MEDICARE REPLACEMENT/AD VANTAGE - HMO) Pedrito Fultno [id number] Pedrito Fulton Notes Date Note Type Note Provider Name and Address Organization Details Recorded Time 09/29/2021 text/html This was a supervised home visit with sand shoveler Adrian Dan. HPI: REvisit from this AM> [...] ................... ................... ................... ................... ................... ................... ........ Eligibility Consultant Note: Pt complaint of left sided chest/arm/leg pain x5 months. Describes it as burning. EKG. [facility] contacted. Pt was advised to go to ED via ambulance. Pt stated he would have his son take him to [facility]. ................... ................... ................... ................... ................... ................... ................... ........ Disposition: Fulfilled Antonio Dove MD [address] [facility],[address], [place], [address], ABDELRAHMAN ALONZO 09/29/2021 16:16:31 01/10/2022 text/html This was a supervised home visit with sand shoveler Elba Lopez. HPI: Member said he is having left arm pain and left chest pain. He refused to go the emergency and he said [facility] usually come and give him some medicationsl History of spinal stenosis Allergic Benadryl and Tramadol ................... ................... ................... ................... ................... ................... ................... ........ CRC Nursing Assessment: Comments: [facility] emailed CP , awaiting response if member is safe to wait overnight Spoke with member who has chronic chest pain, member has had cardiac work up in the past and continues to work with a supervisor microfilm duplicating unit to determine why member has pain . Member is awaiting stress test and other tests in the future. Daughter is with member and stated this is his normal baseline and he is safe an stable but they are aware of when to call 911 ................... ................... ................... ................... ................... ................... ................... ........ Eligibility Consultant Note: Sent to a call for a [...] the past. 12 lead ECG: uploaded to [employer]. Pt denies sob, v/d, abd pain, fever or loc. BP:114/80, P:98, RR:18, SpO2:98%, T:98.6; Lung sounds: clear bilaterally; Abdomen: soft, non-tender; Skin: pink, warm, dry; [facility] orders Toradol 30mg IM; Zofran 4mg ODT; Toradol and Zofran administered without incident. Pt advised to follow up with PCP. Red flags discussed. Pt has no further questions. ................... ................... ................... ................... ................... ................... ................... ........ Disposition: Fulfilled Antonio Dove MD [address] [place] [address],[address], [place], [address], [employer] 01/10/2022 11:27:39 02/01/2022 text/html HPI: Member has [...] NEED FURTHER INFO Deanne Rod MD [address] [facility],[address], [place], [address], [email or web address] 02/01/2022 18:25:58 08/13/2022 text/html HPI: Member's daughter Lexi called into the CRU in behalf of her father Pedrito. Lexi states that Pedrito is complaining of nausea, dizziness and his BP is elevated. Lexi does not have the recorded BP. she states Pedrito is mostly Sami speaking. She is asking for an Fab[employer] visit. ................... ................... ................... ................... ................... ................... ................... ........ CRC Nursing Assessment: Comments: RN spoke to member via loss prevention representative. BP 91/70 today at 5 min ago. [...] ................... ................... ................... ................... ................... ................... ........ Eligibility Consultant Note From Melquiades Rhodes: Pt complains of left anterior chest pain that radiates down his left arm. Pt reports that he was seen at [facility] on 08/10 for the same complaint and [...] for STEM NSR with no ectopy. [facility] contacted who agreed that pt should be sent back to ED for cardiac work up and 911 was initiated . Pt administered 324 MG ASA PO and pt care was transferred to [facility] for transport back to ED. ................... ................... ................... ................... ................... ................... ................... ........ Disposition: Basilio MYERS MD [address] [facility],[address], [place], [address], [email or web address] 08/13/2022 18:58:40 11/27/2022 text/html HPI: anxiety, heart palpatations ................... ................... ................... ................... ................... ................... ................... ........ CRC Nursing Assessment: Comments: Call to member via [employer] [phone] for additional information. Member who feels anxious, [...] ................... ................... ................... ................... ................... ................... ........ Eligibility Consultant Note From Cilve Del Valle: [place] [facility] call for patient [...] ................... ................... ........ Disposition: Basilio Díaz MD [address] [place] [address],[address], [place], [address], [employer] ARCE 11/27/2022 21:46:07
--- OUTSIDE RECORDS SUMMARY | 2024-06-25 10:50 | XMS_ITS | Encounter Summary ---
Author Organization [email or web address] Address [address] [facility] [address] [place] [address] Care Team Providers Care Human Performance Consultant Name Role Phone Jules Escalona MD Primary Care Prov ider Reason for Visit * Reason Comments Med Refill Encounter Details Date Type Department Care Team ([facility] st Contact Info) Description 05/28/2024 Refill [facility] MED[facility]INE [address] [place] [address] Jules Escalona MD [address] [place], [place] [phone] Social History Tobacco Use Types Packs/Day Years [...] documented as of this encounter Care Teams Human Performance Consultant Relationship Specialty Start Date End Date Jules Escalona MD [address] [place] [address] PCP - General Internal Medicine 09/07/19 documented as of this encounter
--- OUTSIDE RECORDS SUMMARY | 2024-06-25 10:50 | XMS_ITS | Encounter Summary ---
Author Organization [employer] Address [address] [facility] [address] [place] [address] Care Team Providers Care Beveling And Edging Machine Operator Name Role Phone Jules Escalona MD Primary Care Prov ider Encounter Details Date Type Department Care Team ([facility] st Contact Info) Description 08/29/2023 Orders Only [facility] MEDICINE [address] [place] [address] ProviderFredy MD Social History Tobacco Use Types [...] documented as of this encounter Care Teams Beveling And Edging Machine Operator Relationship Specialty Start Date End Date CarcamoJules Huff MD [address] [place] [address] PCP - General Internal Medicine 09/07/19 documented as of this encounter
--- OUTSIDE RECORDS SUMMARY | 2024-06-25 10:50 | XMS_ITS | Encounter Summary ---
Author Organization [employer] [facility] Address [address] [facility] 7t [place] [address] Care Team Providers Care Canal Equipment Maintenance Supervisor Name Role Phone Jules Escalona MD Primary Care Prov ider Encounter Details Date Type Department Care Team (Latest Contact Info) Description 04/15/2020 Abstract [facility] CONVERSIONS Dental, Provider, DDS Social History [...] on filedocumented in this encounter Care Teams Canal Equipment Maintenance Supervisor Relationship Specialty Start Date End Date Jules Escalona MD [address] [facility] [place] [address] PCP - General Internal Medicine 09/07/19 documented as of this encounter
--- OUTSIDE RECORDS SUMMARY | 2024-06-25 10:50 | XMS_ITS | Encounter Summary ---
Author Organization [employer] Address [address] [facility] [address] [place] [address] Care Team Providers Care Sales Porter Name Role Phone Jules Escalona MD Primary Care Prov ider Reason for Visit * Reason Comments Med Refill Encounter Details Date Type Department Care Team ([facility] st Contact Info) Description 06/02/2024 Refill [facility]S [address] [place], [place] [phone] Jules Escalona MD [address] [place] [address] Recurrent major depressive disorder, in partial remission [...] documented as of this encounter Care Teams Sales Porter Relationship Specialty Start Date End Date Jules Escalona MD [address] [place] [id number] PCP - General Internal Medicine 09/07/19 documented as of this encounter
--- OUTSIDE RECORDS SUMMARY | 2024-06-25 10:50 | XMS_ITS | Encounter Summary ---
Author Organization [employer] Address [address] [facility] [address] [place] [address] Care Team Providers Care Traffic Incident Management Manager Name Role Phone Jules Escalona MD Primary Care Prov ider Encounter Details Date Type Department Care Team ([facility] Contact Info) Description 08/10/2022 Orders Only [facility] MED & PEDS [address] [place] [address] Jules Escalona MD [address] [place] [address] Social History Tobacco Use Types Packs/Day Years [...] documented as of this encounter Care Teams Traffic Incident Management Manager Relationship Specialty Start Date End Date Jules Escalona MD [address] [place] [address] PCP - General Internal Medicine 09/07/19 documented as of this encounter
--- OUTSIDE RECORDS SUMMARY | 2024-06-25 10:50 | XMS_ITS | Clinical Summary ---
Author Organization [facility] Address [address] [place] [address] Phone Care Team Providers Care Street Light Mechanic Name Role Phone Jules Escalona Primary Care Provide r Allergies Active Allergy Reactions Criticality Noted Date Comments Diphenhydramine Hcl 03/24/2024 Medications acetaminophen (TYLENOL) 500 mg tablet Take 1 [...] Dysphagia 03/18/2024 Chronic low back pain 03/18/2024 Social History Tobacco Use Types Packs/Day Years Used Date Smoking Tobacco: Never Assessed Sex and Gender Information Value Date Recorded Sex Assigned at Not on file Legal Sex Male 4:54 AM EST Gender Identity Not on file Sexual Orientation Not on file Last Filed Vital Signs [...] 03/24/2024 12:57 PM EST Plan of Treatment Health Maintenance Due Date Last Done Comments Pneumococcal Vaccine: 50+ Years (2 of 2 - PCV) 03/08/2017 03/08/2016 Pneumococcal Vaccine: Pediatrics (0 to 5 Years) and At-Risk Patients (6 to 64 Years) (2 of 2 - PCV) 03/08/2017 03/08/2016 RSV Immunization Patients 60+ Years Old (1 - Risk 60-74 years 1-dose series) 2020 COVID-19 Vaccine (3 - season) 2024 05/03/2021, 10/04/2020 Colorectal Cancer Screening: Colonoscopy 02/14/2024 Depression Screening 02/14/2024 07/30/2022 HIV Screening 02/14/2024 Social Influencers of Health Screening 02/14/2024 DTaP,Tdap,and Td Vaccines (3 - Td or [...] patient's age to complete this topic Meningococcal B Vacine Aged Out No lo nger eligible based on patient's age to complete this topic RSV Immunization Patients Under 20 months Aged Out No longer eligible based on patient's age to complete this topic Varicella Vaccines Aged Out No longer eligible based on patient's age to complete this topic Insurance [facility] MEDICAID [id number] Mechanic Relationship Specialty Start Date End Date Jules Escalona [address] [place] [address] PCP - General 01/02/24
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
--- OUTSIDE RECORDS SUMMARY | 2024-06-25 10:50 | XMS_ITS | Encounter Summary ---
Author Organization [employer] Address [address] [facility] 7t [place] [address] Care Team Providers Care Heat And Frost Insulator Name Role Phone Jules Escalona MD Primary Care Prov ider Reason for Visit * Reason Comments Med Refill Encounter Details Date Type Department Care Team ([facility] Contact Info) Description 06/23/2023 Refill [facility] MED & PEDS [address] [place] [address] Margie Martínez MD [address] [place] [address] Irritable bowel syndrome with both constipation and [...] documented as of this encounter Care Teams Heat And Frost Insulator Relationship Specialty Start Date End Date Jules Escalona MD [address] [place] [phone] PCP - General Internal Medicine 09/07/19 documented as of this encounter
--- OUTSIDE RECORDS SUMMARY | 2024-06-25 10:50 | XMS_ITS | Encounter Summary ---
Author Organization [employer] [facility] Address [address] [facility] 7t [place] [address] Care Team Providers Care Manager Of Transportation Name Role Phone Jules Escalona MD Primary Care Prov ider Encounter Details Date Type Department Care Team (Latest Contact Info) Description 01/23/2022 Abstract [facility] CONVERSIONS Dental, Provider, DDS Social History [...] on filedocumented in this encounter Care Teams Manager Of Transportation Relationship Specialty Start Date End Date Jules Escalona MD [address] [facility] [place] [address] PCP - General Internal Medicine 09/07/19 documented as of this encounter
--- OUTSIDE RECORDS SUMMARY | 2024-06-25 10:50 | XMS_ITS | Encounter Summary ---
Author Organization [employer] Address [address] [place] [address] [address] [place] [address] Care Team Providers Care Custom Furrier Name Role Phone Jules Escalona MD Primary Care Prov ider Reason for Visit * Reason Onset Date Comments Nurse Triage 11/06/2022 Encounter Details Date Type Department Care Team ([facility] Contact Info) Description 11/06/2022 Telephone [facility] MED & PEDS [address] [place] [address] Jules Escalona MD [address] [place] [address] Nurse Triage Social History Tobacco Use Types [...] 4:04 PM EDT Triage call with pacific Plate Roller ID [id number] Pt reports blood pressure is up and [...] Getting worse The caller accepted this outcome (Arabic speaker) documented in this encounter Plan of Treatment Not on file documented as of this encounter Visit Diagnoses Not on filedocumented in this encounter Additional Health Concerns Assessment Noted Time PHQ-9 Depression Total Score: 5 07/31/19 23 8:54 AM EDT documented as of this encounter Care Teams Custom Furrier Relationship Specialty Start Date End Date Jules Escalona MD [address] [place] [phone] PCP - General Internal Medicine 09/07/19 documented as of this encounter
--- OUTSIDE RECORDS SUMMARY | 2024-06-25 10:50 | XMS_ITS | Encounter Summary ---
Author Organization [employer] Address [address] [facility] 7t [place] [address] Care Team Providers Care Tank Storage Supervisor Name Role Phone Jules Escalona MD Primary Care Prov ider Encounter Details Date Type Department Care Team ([facility] Contact Info) Description 06/09/2024 8:30 AM EST Telemedicine [facility] MED & PEDS [address] [place] [address] Jules Escalona MD [address] [place] [address] Elevated blood pressure reading in office without diagnosis of hypertension (Primary Dx); Seasonal allergies; Prediabetes; Chronic bilateral low back pain with bilateral sciatica Social History Tobacco Use Types Packs/Day Years [...] AM EDT documented as of this encounter Progress Notes * Jules Lopez MD - 06/09/2024 8:30 AM EST Subjective Patient ID: Pedrito Fulton is a 63 y.o. male who presents for No chief complaint on file.. HPI Patient was scheduled for a televisit for follow up chronic medical conditions Review of Systems Constitutional: Negative for chills, fatigue and fever. Respiratory: Negative for cough and shortness of breath. Cardiovascular: Negative for chest pain and palpitations. Musculoskeletal: Negative for arthralgias and joint swelling. Objective Physical Exam Neurological: General: No focal deficit present. Mental Status: He is oriented to person, place, and time. Psychiatric: Mood and Affect: Mood normal. Behavior: Behavior normal. Assessment/Plan Problem List Items Addressed This Visit Elevated blood pressure reading in office without diagnosis of hypertension - Primary Has remained stable, no changes will be made, continue low sodium diet and exercise as tolerated, keep bp log Relevant Orders Comprehensive Metabolic Panel (Completed) Chronic back pain Followed by pain management, avoid heavy lifting, conineu pain medications as prescribed Other Visit Diagnoses Seasonal allergies Will renew flonase, follow up as needed Relevant Medications fluticasone (Flonase) 50 MCG/ACT nasal spray Prediabetes Relevant Orders Hemoglobin A1c (Completed) documented in this encounter Plan of Treatment Not on file documented as of this encounter Procedures Procedure Name Priority Date/Time Associated Diagnosis Comments HEMOGLOBIN A1C Routine 06/15/2024 2:52 PM EST Prediabetes COMPREHENSIVE METABOLIC PANEL Routine 06/15/2024 2:52 PM EST Elevated blood pressure reading in office without diagnosis of hypertension documented in this encounter Results * (ABNORMAL) Hemoglobin A1c (06/15/2024 2:52 PM EST) Hemoglobin A1c 6.1(H) <6.0 % [facility] Comment:Hemoglobin A1C Refer ence Range Adults: 4.8 - 6.0 % Non diabetic: < 6.0 % Goal: < 7.0 %Additional Action Suggested: > 8.0 %Note: Hemoglobin A1c results are invalid for patients with abnormal amounts of HbF. Blood transfusions may impact the HbA1c concentration in the patient sample. Estimated Average Glucose 128 mg/dL [facility] Comment:eAG = Estimated ave rage glucose which is %A1C expressed asaverage glucose, using the formula of the K4U-CdomyetEzmrmpz Glucose study (ADAG), Diabetes Care, Vol.31,#8,Dec. 2007 Blood Venous blood specimen / Unknown 06/15/2024 2:52 PM EST 06/15/2024 5:39 PM EST us uJles Lopez MD LAB BLOOD ORDERABL ES Final Result [facility] [address] [place] [phone] * (ABNORMAL) Comprehensive Metabolic Panel (06/15/2024 2:52 PM EST) Sodium 139 135 - 145 mmol/L [facility] Potassium 3.6 3.3 - 5.1 mmol/L [facility] Chloride 102 96 - 108 mmol/L [facility] Carbon Dioxide 30(H) 22 - 29 mmol/L [facility] Anion Gap 11(L) 12 - 20 [facility] Urea Nitrogen (BUN) 12 9 - 16 mg/dL [facility] Creatinine, Serum 0.95 0.5 - 1.4 mg/dL [facility] Estimated Glomerular Filt Rate >60 [facility] Comment:Chronic Kidney Disea se: Estimated GFR < 60 mL/min/1.69w1Hmaqco Kidney Disease: Estimated GFR < 15 mL/min/1.73m2 Glucose 61 60 - 115 mg/dL [facility] Calcium 9.4 8.4 - 10.2 mg/dL [facility] Bilirubin, Total 0.3 0.0 - 1.0 mg/dL [facility] Aspartate Amino Transferase 40(H) 5 - 37 U/L [facility] Alanine Aminotransferase 48(H) 0 - 40 U/L [facility] Total Protein 8.1(H) 6.5 - 8.0 g/dL [facility] Albumin Level 4.4 3.5 - 5.0 g/dL [facility] Alkaline Phosphatase 83 39 - 117 U/L [facility] Blood Venous blood specimen / Unknown 06/15/2024 2:52 PM EST 06/15/2024 5:39 PM EST us Jules Lopez MD LAB BLOOD ORDERABL ES Final Result [facility] [address] [place] [phone] documented in this encounter Visit Diagnoses Diagnosis Elevated blood pressure reading in office without diagnosis of hypertension- Primary Seasonal allergies Allergic rhinitis, cause unspecified Prediabetes Other abnormal glucose Chronic bilateral low back pain with bilateral sciatica documented in this encounter Additional Health Concerns Assessment Noted Time PHQ-9 Depression Total Score: 5 07/31/19 23 8:54 AM EDT documented as of this encounter Care Teams Tank Storage Supervisor Relationship Specialty Start Date End Date Jules Escalona MD [address] [place] [phone] PCP - General Internal Medicine 09/07/19 documented as of this encounter
--- OUTSIDE RECORDS SUMMARY | 2024-06-25 10:50 | XMS_ITS | Encounter Summary ---
Author Organization [employer] Address [address] [facility] 7t [place] [address] Care Team Providers Care Room Maid Name Role Phone Jules Escalona MD Primary Care Prov ider Reason for Visit * Reason Comments Med Refill Encounter Details Date Type Department Care Team ([facility] st Contact Info) Description 06/05/2024 Refill [facility] MED & PEDS [address] [place] [address] Jules Escalona MD [address] [place] [address] Seasonal allergies Social History Tobacco Use Types [...] documented as of this encounter Care Teams Room Maid Relationship Specialty Start Date End Date Jules Escalona MD [address] [place] [address] PCP - General Internal Medicine 09/07/19 documented as of this encounter
--- OUTSIDE RECORDS SUMMARY | 2024-06-25 10:50 | XMS_ITS | Encounter Summary ---
Author Organization [employer] Address [address] [facility] 7t [place] [address] Care Team Providers Care Photo Print Specialist Name Role Phone Jules Escalona MD Primary Care Prov ider Reason for Visit * Reason Onset Date Comments left small partial in office 01/31/2023 Encounter Details Date Type Department Care Team ([facility] st Contact Info) Description 01/31/2023 Telephone [facility] ADULT DENTAL [address] [place] [address] Aston Espinoza DDS [address] [place] [address] left small partial in office Social History [...] documented as of this encounter Care Teams Photo Print Specialist Relationship Specialty Start Date End Date Jules Escalona MD [address] [place] [phone] PCP - General Internal Medicine 09/07/19 documented as of this encounter
--- OUTSIDE RECORDS SUMMARY | 2024-06-25 10:50 | XMS_ITS | Encounter Summary ---
Author Organization [employer] Address [address] [facility] 7t [place] [address] Care Team Providers Care Fast Food Sales Assistant Name Role Phone Jules Escalona MD Primary Care Prov ider Reason for Visit * Reason Comments Med Refill Encounter Details Date Type Department Care Team ([facility] st Contact Info) Description 10/15/2023 Refill [facility] MED & PEDS [address] [place], [place] [phone] Jules Escalona MD [address] [place] [address] Delayed gastric emptying Social History Tobacco Use [...] documented as of this encounter Care Teams Fast Food Sales Assistant Relationship Specialty Start Date End Date Jules Escalona MD [address] [place] [phone] PCP - General Internal Medicine 09/07/19 documented as of this encounter
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
--- OUTSIDE RECORDS SUMMARY | 2024-06-25 10:50 | XMS_ITS | Encounter Summary ---
Author Organization [facility] Address [address] [facility] [address] [place] [address] Care Team Providers Care Custom Feed Corn Operator Name Role Phone Jules Escalona MD Primary Care Prov ider Encounter Details Date Type Department Care Team (Latest Contact Info) Description 04/29/2019 Abstract [facility] CONVERSIONS Dental, Provider, DDS Social History Tobacco [...] on filedocumented in this encounter Care Teams Custom Feed Corn Operator Relationship Specialty Start Date End Date Jules Escalona MD [address] [facility] [place] [address] PCP - General Internal Medicine 09/07/19 documented as of this encounter
--- OUTSIDE RECORDS SUMMARY | 2024-06-25 10:50 | XMS_ITS | Encounter Summary ---
Author Organization [employer] Address [address] [facility] 7[address] [place] [address] Care Team Providers Care Rolling Down Machine Operator Name Role Phone Jules Escalona [...] documented as of this encounter Care Teams Rolling Down Machine Operator Relationship Specialty Start Date End Date Jules Escalona MD [address] [place] [id number] PCP - General Internal Medicine 09/07/19 documented as of this encounter
== END 2024-06-25 10:09 | disposition home or self-care (01) ==
LOC: HO.MRI 10:08
PROVIDERS: Visit Provider Physician Assistant
DX: M17.11 Unilateral primary osteoarthritis, right knee (principal)
CPT/HCPCS: 73721

== ENCOUNTER 2024-08-19 12:45 | Outpatient (AMB) | payer OTHER, SELFPAY ==
[2024-08-19 12:55] VITALS: BMI 29.9
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
--- OUTSIDE RECORDS SUMMARY | 2024-08-19 14:41 | XMS_ITS | Clinical Summary ---
Author Organization [address] [facility] Address [address] [place] [address] Phone Care Team Providers Care Safety Teacher Name Role Phone Jules Escalona Primary Care [...] 2 - PCV) 03/08/2017 03/08/2016 RSV Immunization Adult Patients (1 - Risk 60-74 years 1-dose series) [...] age to complete this topic Meningococcal B Vaccine Aged Out No l onger eligible based on patient's age to complete this topic RSV Immunization Patients Under 20 months Aged Out No longer eligible based on patient's age to complete this topic Varicella Vaccines Aged Out No longer eligible based on patient's age to complete this topic [place] [address] [place] [address] MEDICAID [id number] [id number] Care Teams Safety Teacher Relationship Specialty Start Date End Date Jules Escalona [address] [place] [address] PCP - General 01/02/24
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
--- OUTSIDE RECORDS SUMMARY | 2024-08-19 14:42 | XMS_ITS | Encounter Summary ---
Author Organization [employer] Address [address] [facility] [address] [place] [address] Care Team Providers Care Machine Inspector Name Role Phone Jules Escalona MD Primary Care Prov ider Reason for Visit * Reason Comments Med Refill Encounter Details Date Type Department Care Team ([facility] st Contact Info) Description 06/05/[address] [facility] PEDS [address] [place] [address] Jules Escalona MD [address] [place] [address] Seasonal allergies Social History Tobacco Use Types [...] documented as of this encounter Care Teams Machine Inspector Relationship Specialty Start Date End Date Jules Escalona MD [address] [place] [address] PCP - General Internal Medicine 09/07/19 documented as of this encounter
--- OUTSIDE RECORDS SUMMARY | 2024-08-19 14:42 | XMS_ITS | Encounter Summary ---
Author Organization [employer] Address [address] [facility] [address] [place] [address] Care Team Providers Care Retail Buyer Name Role Phone Jules Escalona MD Primary Care Prov ider Encounter Details Date Type Department Care Team ([facility] Contact Info) Description 10/14/2023 Telephone [facility] [address] [place] [address] Sherine Ramirez DMD Social History Tobacco Use [...] documented as of this encounter Care Teams Retail Buyer Relationship Specialty Start Date End Date Jules Escalona MD [address] [place] [id number] PCP - General Internal Medicine 09/07/19 documented as of this encounter
--- OUTSIDE RECORDS SUMMARY | 2024-08-19 14:42 | XMS_ITS | Data Portability ---
Author Organization [employer] Address [address] [place] [address] Care Team Providers Care Anesthesia Director Name Role Phone [facility] Referring Provider [phone] [facility] Referring Provider Assessment Encounter Date Assessment Date Assessment LastModified by Organization Details LastModified Time 09/29/2021 09/29/2021 I have reviewed and agree with the assessment and plan as documented by the oyster grader. I provided real time medical direction for this encounter and was immediately available to provide additional phone based assistance as needed. History as noted by oyster grader. Pt with history of chest pain and [...] en route to the ED. In the [facility] ED, the pt reportedly did not [...] his son drive him now to the [facility] ED (pt does not want to return to [facility]). btils Not available 09/29/2021 16:14:40 01/10/2022 01/10/2022 I have reviewed and agree with the assessment and plan as documented by the oyster grader. I provided real time medical direction for this encounter and was immediately available to provide additional phone based assistance as needed. History as noted by oyster grader. Pt with long history of chronic pain [...] denies renal issues. 1) CAM ketorolac by oyster grader 2) lidocaine gel to pharmacy 3) diclofenac gel to pharmacy 4) [facility] available 02/01/2022 18:25:27 08/13/2022 08/13/2022 As noted, we wer e called to see this patient regarding concerns of chest pain. Evaluation in the field was performed by my oyster grader colleague, as noted above, I provided real-time [...] patient had a negative stress test at [facility] several months ago. Despite this, the presentation [...] Assessment and Plan as documented by the Mosaic Tile Maker. Patient given the opportunity to ask questions. [...] None recorded. Imaging electrocard iogram [address], [phone] 4 05:00:54 electrocard iogram 2021 [address], [phone] 2 10:43:33 electrocard iogram 2021 022 btils [facility], [address] [place] [address], [phone] 2 16:15:33 Medication Orders aspirin 325 mg tablet 2022 023 [facility]92504, [address], [place], [id number], 3 18:58:01 ketorolac 30 mg/mL (1 mL) injection solution 2021 022 [facility] Not available 18:14:55 Aspercreme (lidocaine HCl) 4 % topical 2021 [facility] #67466, [address], DINORAH Black, [id number], 2 18:21:17 diclofenac 1 % topical gel 2021 [facility] #74580, [address], DINORAH Black, [id number], 2 18:21:57 ketorolac 30 mg/mL injection solution 2021 022 btils Not available 08/31/202 2 10:34:50 ondansetron 4 mg disintegrat ing tablet 2021 022 btils Not available 10:34:50 Patient TargetsNo targets recorded. Patient InstructionsNo instructions recorded. Reason for Referral None Reported. Results Created Date Observation Date Name Description Value Unit Range Abnormal Flag Note LastModifiedBy Organization Detail LastModifiedTime 09/30/19 22 09/29/2021 elect rocar diogr am No observ ation [facility] [address] [place] [address], [phone] 09/29/2021 16:15:30 01/11/20 22 01/10/2022 elect rocar diogr am No observ ation record ed[facility] [address] [place] [address], [phone] 01/10/2022 10:43:30 11/28/19 23 11/29/2022 elect rocar diogr am No observ ation record ed. [place] [id number] Main - [facility] [address] [place] [address], [phone] 11/29/2022 10:41:51 Result Notes None recorded. Procedures Surgical History None recorded. Imaging Results Imaging Date Name Status LastModified by Organization Details LastModified Time 09/29/2021 electrocardiogram completed [address], [phone] 09/29/2021 16:15:30 01/10/2022 [facility] [address] [place] [address], [phone] 01/10/2022 10:43:30 11/29/2022 electrocardiogram completed [address] [facility] [address] [place] [address], [phone] 11/29/2022 10:41:51 Procedure Notes None recorded. Medical [...] /min 110 mm[Hg] 74 mm[Hg] Not Available [employer] 2 14:41:44 Date Recorded Body temperature Body weight Heart rate Respiratory rate Body height Oxygen saturation Oxygen saturation in Arterial blood by Pulse oximetry Systolic blood pressure Diastolic blood pressure Provider Name and Address Organization Details Last Updated DateTime 3 97.6 [degF] 40224.6 g 79 /min 16 /min 162.56 cm 96 % 96 % 117 mm[Hg] 85 mm[Hg] Not Available [employer] 3 21:43:02 Date Recorded Body temperature Heart [...] /min 18 /min 98 % 98 % 44289.6 g 162.56 cm 98.6 [degF] 98 % 98 % 94963.6 g 18 /min 98 /min 162.56 cm 114 mm[Hg] 80 mm[Hg] 114 mm[Hg] 80 mm[Hg] Not Available [employer] 2 11:17:56 Date Recorded Body temperature Heart rate Oxygen saturation Oxygen saturation in Arterial blood by Pulse oximetry Respiratory rate Body weight Body height Systolic blood pressure Diastolic blood pressure Provider Name and Address Organization Details Last Updated DateTime 2 97.9 [degF] 92 /min 97 % 97 % 18 /min 07325.5 6 g 162.56 cm 119 mm[Hg] 81 mm[Hg] Not Available [employer] 2 18:06:29 Date Recorded Heart rate Respiratory [...] /min 14 /min 97 % 97 % 10616.5 6 g 99.3 [degF] 97 % 97 % 14 /min 99.3 [degF] 92 /min 86887.5 6 g 114 mm[Hg] 73 mm[Hg] 114 mm[Hg] 73 mm[Hg] Not Available [employer] - production 3 18:47:22 Social History None recorded. Functional Status None recorded. Mental Status None recorded. Family History Nothing Reported. Medical History No medical history recorded. Past Encounters Encounter ID Performer Location Encounter Start Date Encounter Closed Date Diagnosis/Indication Diagnosis SNOMED-CT Code Diagnosis ICD10 Code Diagnosis Note [id number] Noah Forbes MD Main - [facility] [address] [place] [phone] 07/13/2021 13:11:34 12/27/2021 13:01:01 Dry cough 04558707 R05.9 [id number] Antonio Dove MD Main - [facility] [address] [place] [phone] 09/29/2021 14:41:35 02/13/2022 09:59:05 Chest pain [id number] R07.9 [id number] Antonio Dove MD Main - [facility] [address] [place] [phone] 01/10/2022 10:28:17 02/13/2022 12:36:46 Chest pain [id number] R07.9 [id number] Deanne Rod MD Main - [facility] [address] [place] [phone] 02/01/2022 18:06:26 02/06/2022 14:02:54 Musculoskeletal pain [id number] M79.10 [id number] AGAPITO MYERS MD Main - [facility] [address] [place] [phone] 08/13/2022 18:23:25 08/14/2022 22:49:15 Chest pain [id number] R07.9 [id number] Odalys Díaz MD Main - [address] [phone] 11/27/2022 21:42:53 11/28/2022 09:09:55 Palpitations 59832169 R00.2 Health Concerns Section Related Observation LastModified [...] (MEDICARE REPLACEMENT/AD VANTAGE - HMO) Pedrito Fulton [id number] Pedrito Fulton 01/10/2022 1 [facility] [facility] - DOS PRIOR TO 2022 - DUAL ELIGIBLE (MEDICARE REPLACEMENT/AD VANTAGE - HMO) Pedrito Fulton [id number] Pedrito Fulton 02/01/2022 1 [facility] DOS PRIOR TO 2022 - DUAL ELIGIBLE (MEDICARE REPLACEMENT/AD VANTAGE - HMO) Pedrito Fulton [id number] Pedrito Fulton 08/13/2022 1 [facility] - DOS PRIOR TO 2022 - DUAL ELIGIBLE (MEDICARE REPLACEMENT/AD VANTAGE - HMO) Pedrito Fulton [id number] Pedrito Fulton 11/27/2022 1 [facility] - DOS ON OR AFTER 2022 - DUAL ELIGIBLE - SKILLED NURSING OPTIONS AND ONE CARE (MEDICARE REPLACEMENT/AD VANTAGE - HMO) Pedrito Fulton [id number] Pedrito Fulton Notes Date Note Type Note Provider Name and Address Organization Details Recorded Time 09/29/2021 text/html This was a supervised home visit with oyster grader Adrian Dan. HPI: REvisit from this AM> [...] ................... ................... ................... ................... ................... ................... ........ Mosaic Tile Maker Note: Pt complaint of left sided chest/arm/leg pain x5 months. Describes it as burning. EKG. [facility] contacted. Pt was advised to go to ED via ambulance. Pt stated he would have his son take him to [facility]. ................... ................... ................... ................... ................... ................... ................... ........ Disposition: Fulfilled Antonio Dove MD [address] [place] [address],[address], [place], [phone], [facility] - [employer] 09/29/2021 16:16:31 01/10/2022 text/html This was a supervised home visit with oyster grader Elba Lopez. HPI: Member said he is having left arm pain and left chest pain. He refused to go the emergency and he said C[employer] usually come and give him some medicationsl History of spinal stenosis Allergic Benadryl and Tramadol ................... ................... ................... ................... ................... ................... ................... ........ CRC Nursing Assessment: Comments: CRC emailed CP , awaiting response if member is safe to wait overnight Spoke with member who has chronic chest pain, member has had cardiac work up in the past and continues to work with a tunnel man to determine why member has pain . Member is awaiting stress test and other tests in the future. Daughter is with member and stated this is his normal baseline and he is safe an stable but they are aware of when to call 911 ................... ................... ................... ................... ................... ................... ................... ........ Mosaic Tile Maker Note: Sent to a call for a [...] the past. 12 lead ECG: uploaded to Medication Review. Pt denies sob, v/d, abd pain, fever or loc. BP:114/80, P:98, RR:18, SpO2:98%, T:98.6; Lung sounds: clear bilaterally; Abdomen: soft, non-tender; Skin: pink, warm, dry; C orders Toradol 30mg IM; Zofran 4mg ODT; Toradol and Zofran administered without incident. Pt advised to follow up with PCP. Red flags discussed. Pt has no further questions. ................... ................... ................... ................... ................... ................... ................... ........ Disposition: Fulfilled Antonio Dove MD [address] [place] [address],[address] [facility], [place], [phone], [employer] 01/10/2022 11:27:39 02/01/2022 text/html HPI: Member has [...] NEED FURTHER INFO Deanne Rod MD [address] [facility],[address], [place], [phone], [place] [employer] 02/01/2022 18:25:58 08/13/2022 text/html HPI: Member's daughter Lexi called into the CRU in behalf of her father Pedrito. Lexi states that Pedrito is complaining of nausea, dizziness and his BP is elevated. Lexi does not have the recorded BP. she states Pedrito is mostly Georgian speaking. She is asking for an [employer] visit. ................... ................... ................... ................... ................... ................... ................... ........ CRC Nursing Assessment: Comments: RN spoke to member via pricing/signage team member. BP 91/70 today at 5 min ago. [...] ................... ................... ................... ................... ................... ................... ........ Mosaic Tile Maker Note From Melquiades Rhodes: Pt complains of left anterior chest pain that radiates down his left arm. Pt reports that he was seen at [facility] on 08/10 for the same complaint and was discharged home with no diagnosis. Pt reports that pain has steadily grown worse over the weekend and is sharp in nature rating the pain 8/10. Pt denies change to pain with movement [...] diagnostic for STEM NSR with no ectopy. [facility] contacted who agreed that pt should be sent back to ED for cardiac work up and 911 was initiated . Pt administered 324 MG ASA PO and pt care was transferred to [facility] for transport back to ED. ................... ................... ................... ................... ................... ................... ................... ........ Disposition: Fulfilled AGAPITO MYERS MD [address] [facility],[address], [place], [phone], [employer] 08/13/2022 18:58:40 11/27/2022 text/html HPI: anxiety, heart palpatations ................... ................... ................... ................... ................... ................... ................... ........ [facility] Nursing Assessment: Comments: Call to member via School Counselor [phone] for additional information. Member who feels anxious, [...] ................... ................... ................... ................... ................... ................... ........ Mosaic Tile Maker Note From Clive Del Valle: Mobile health [...] ................... ................... ................... ................... ........ Disposition: Fulfilled Odalys Díaz MD [address] [place] [address],[address] [facility], [place], [phone], DINORAH - [employer]DEL[employer] 11/27/2022 21:46:07
--- OUTSIDE RECORDS SUMMARY | 2024-08-19 14:42 | XMS_ITS | Clinical Summary ---
Author Organization [employer] Address [address] [facility] [address] [place] [address] Care Team Providers Care Hvac Mechanic Name Role Phone Jules Escalona MD Primary [...] naloxone (Narcan) 4 mg/0.1 mL nasal spray [place] 0.1 mL into one nostril. Repeat with [...] PACKET BY MOUTH TWICE DAILY WITH MEALS Active amitriptyline (Elavil) 50 MG tablet Active Diclofenac Sodium 1 % gelIndications:Ra dicular pain APPLY 2 GRAMS TO THE AFFECTED AREA(S) BY TOPICAL ROUTE 4 TIMES PER DAY 100 g 3 023 Active famotidine (Pepcid) 40 MG tabletIndications :Delayed [...] TAKE 17 GM BY MOUTH EVERY DAY Active baclofen (Lioresal) 20 MG tabletIndications :Neck pain on right side,Pain of right hip,Right leg pain Take 1 tablet (20 mg) by mouth 2 times daily. 20 tablet 024 Active FLUoxetine (PROzac) 40 MG capsuleIndication s:Recurrent major depressive disorder, in partial remission (CMS/HCC) TAKE 1 CAPSULE(40 MG) BY MOUTH IN THE MORNING 30 capsule 3 025 Active fluticasone (Flonase) 50 MCG/ACT nasal sprayIndications: Seasonal allergies Administer 1 spray into each nostril Once per day. Shake gently. Before first use, prime pump. After use, clean tip and replace cap. 16 g 025 2025 Active atorvastatin (Lipitor) 40 MG tabletIndications :Mixed hyperlipidemia TAKE 1 TABLET(40 MG) BY MOUTH IN THE MORNING 90 tablet 3 025 Active gabapentin (Neurontin) 800 MG tablet TAKE 1 TABLET BY MOUTH THREE TIMES DAILY 90 tablet 1 025 Active dicyclomine (Bentyl) 20 MG tabletIndications :Irritable bowel syndrome with both constipation and diarrhea TAKE 1 TABLET BY MOUTH THREE TIMES DAILY WITH BREAKFAST, LUNCH AND EVENING MEAL 90 tablet 2 025 Active gabapentin (Neurontin) 800 MG tablet TAKE 1 TABLET BY MOUTH THREE TIMES DAILY 90 tablet 1 025 2024 Discontinued dicyclomine (Bentyl) 20 MG tabletIndications :Irritable bowel syndrome with both constipation and diarrhea TAKE 1 TABLET BY MOUTH THREE TIMES DAILY WITH BREAKFAST, LUNCH AND EVENING MEAL 90 tablet 2 025 2024 Discontinued(R eorder (will not trigger notification [...] bp, target <140/90 >90/60, follow up with groundhand as scheduled Assessment & Plan (11/07/2022 9:44 [...] (06/18/2023): Added automatically from request for surgery [id number] Last Assessment & Plan: Continued sporadic epigastric [...] (06/18/2023): Added automatically from request for surgery [id number] Delayed gastric emptying 08/09/2020 Overview (01/18/2023): Added automatically from request for surgery [id number] Esophageal dysphagia 06/06/2020 06/18/2023 Overview (06/18/2023): Last [...] 10:52 PM EDT): Followed by gastroenterology Encounters Date Type Department Care Team Description 08/11/[address] [facility] MEDICINE [address] [place] [address] Jules Escalona MD Results; Medication Question 07/28/[address] [facility] MEDICINE [address] [place] [address] Jules Escalona MD 07/02/[address] [facility] CHC MED & PEDS [address] [place] [address] Jules Escalona MD Mixed hyperlipidemia 06/09/2024 8:30 AM EST Telemedicine [facility] PEDS [address] [place] [address] Jules Escalona MD Elevated blood pressure reading in office without diagnosis of hypertension (Primary Dx); Seasonal allergies; Prediabetes; Chronic bilateral low back pain with bilateral sciatica 06/09/2024 Travel 06/05/[address] [facility] PEDS [address] [place] [address] Jules Escalona MD Seasonal allergies 06/02/2024 Refill [facility] MED & PEDS [address] [place] [address] Jules Escalona MD Recurrent major depressive disorder, in partial remission (CMS/HCC); Irritable bowel syndrome with both constipation and diarrhea 05/28/[address] [facility] MEDICINE [address] [place] [address] Jules Escalona MD from Last 3 Months Immunizations Name Administration [...] series) 2020 Depression Screening 07/31/2023 07/30/2022, 07/31/19 SDOH Screening 10/02/2023 10/01/2022 COVID-19 Vaccine ( [...] PM EST) Hemoglobin A1c 6.1(H) <6.0 % [facility] Comment:Hemoglobin A1C Refer ence Range Adults: 4.8 - 6.0 % Non diabetic: < 6.0 % Goal: < 7.0 %Additional Action Suggested: > 8.0 %Note: Hemoglobin A1c results are invalid for patients with abnormal amounts of HbF. Blood transfusions may impact the HbA1c concentration in the patient sample. Estimated Average Glucose 128 mg/dL [facility] Comment:eAG = Estimated ave rage glucose which is %A1C expressed asaverage glucose, using the formula of the W9R-NtrxlokRrhiuyp Glucose study (ADAG), Diabetes Care, Vol.31,#8,Dec. 2007 Blood Venous blood specimen / Unknown 06/15/2024 2:52 PM EST 06/15/2024 5:39 PM EST Jules Lopez MD LAB BLOOD ORDERABL ES Final Result [facility] [address] [place] [phone] * (ABNORMAL) Comprehensive Metabolic Panel (06/15/2024 2:52 PM EST) Sodium 139 135 - 145 mmol/L [facility] Potassium 3.6 3.3 - 5.1 mmol/L [facility] Chloride 102 96 - 108 mmol/L [facility] Carbon Dioxide 30(H) 22 - 29 mmol/L [facility] Anion Gap 11(L) 12 - 20 [facility] Urea Nitrogen (BUN) 12 9 - 16 mg/dL [facility] Creatinine, Serum 0.95 0.5 - 1.4 mg/dL [facility] Estimated Glomerular Filt Rate >60 [facility] Comment:Chronic Kidney Disea se: Estimated GFR < 60 mL/min/1.66j2Ayqdev Kidney Disease: Estimated GFR < 15 mL/min/1.73m2 Glucose 61 60 - 115 mg/dL [facility] Calcium 9.4 8.4 - 10.2 mg/dL [facility] Bilirubin, Total 0.3 0.0 - 1.0 mg/dL [facility] Aspartate Amino Transferase 40(H) 5 - 37 U/L [facility] Alanine Aminotransferase 48(H) 0 - 40 U/L [facility] Total Protein 8.1(H) 6.5 - 8.0 g/dL [facility] Albumin Level 4.4 3.5 - 5.0 g/dL [facility] Alkaline Phosphatase 83 39 - 117 U/L [facility] Blood Venous blood specimen / Unknown 06/15/2024 2:52 PM EST 06/15/2024 5:39 PM EST us Jules Lopez MD LAB BLOOD ORDERABL ES Final Result [facility] [address] [place] [phone] * (ABNORMAL) Lipid Panel, Standard (03/25/2024 8:33 AM EST) Triglycerides 233(H) <150 mg/dL [facility] Comment:Slight Lipemia.Claudette able Triglyceride: less than 150 mg/dLBorderline High Triglyceride 150-199 mg/dLHigh Triglyceride: 200-499 mg/dLVery High Triglyceride: greater than or equal to 5OO mg/dL Cholesterol 180 <200 mg/dL [facility] Comment:Desirable Cholestero l: less than 200 mg/dLBorderline High Cholesterol: 200-239 mg/dLHigh Cholesterol: greater than 239 mg/dL LDL Cholesterol Calculated 82 <100 mg/dL [facility] Comment:Desirable LDL: less than 100 mg/dLNear Optimal/Above Optimal LDL: 110- 129 mg/dLBorderline High LDL: 130-159 mg/dLHigh LDL: 160-189 mg/dLVery High LDL: greater than or equal to 190 mg/dL HDL Cholesterol 52 >40 mg/dL [facility] Comment:Desirable HDL: great er than 40 mg/dL Note: This HDL assay may give artificially low results in patients with liver disease. Blood Venous blood specimen / Unknown 03/25/2024 8:33 AM EST 03/25/2024 2:19 PM EST Jules Lopez MD LAB BLOOD ORDERABL ES Final Result Performing Organization Address City/[facility]/ZIP Co de Phone Number [facility] [address] [place] [phone] * Hm Colonoscopy (07/05/2023 8:17 AM EST) Fredy Cadet MD HEALTH MAINTENANCE Final Result * HIV-1 RNA, Quantitative, Real-Time PCR with Reflex to Genotype (RTI, PI, Integrase) (07/30/2022 9:03 AM EDT) Pathologist [facility] HIV 1 RNA, QN PCR NOT DETECTED copies/mL [facility] [facility], HIV 1 RNA, QN PCR NOT DETECTED Log copies/mL [facility], Comment: REFERENCE RANGE: NOT DETECTED copies/mL ?NOT DETECTED ??Log copies/mL This test was performed using Real-Time Polymerase Chain Reaction. Reportable range is 20 to 10,000,000 copies/mL (1.30-7.00 Log copies/mL). 07/30/2022 9:03 AM EDT 07/30/2022 9:03 AM EDT Narrative [facility] - 08/02/2022 7:14 PM EDT FASTING:YES FASTING: YES Jules Lopez MD LAB BLOOD ORDERABL ES Final Result Performing Organization Address City/[facility]/ZIP Co de Phone Number [address], [place] [address] [employer], [address] [place] [address] * Hepatitis C Antibody with Reflex to HCV, RNA, Quantitative, Real-Time PCR (07/30/2022 9:03 AM EDT) Hepatitis C Antibody NON-REACT KELLY NON-REACT KELLY [employer] [place] Index 0.05 <1.00 [employer] [place] [facility] Comment: HCV antibody was non-reactive. There is no laboratory evidence of HCV infection. In most cases, no further action is required. However, if recent HCV exposure is suspected, a test for HCV RNA (test code 17515) is suggested. For additional information please refer to http://education.GettingHired/faq/YPB98z4 (This link is being provided for informational/ educational purposes only.) Blood Venous blood specimen / Unknown 07/30/2022 9:03 AM EDT 07/30/2022 9:03 AM EDT Narrative [facility] - 08/02/2022 7:14 PM EDT FASTING:YES FASTING: YES Jules Lopez MD LAB BLOOD ORDERABL ES Final Result [facility] [address], [place] [address] [employer] [place] [employer] [address] [place] [address] from Last 3 Months or Most Recently Relevant to Health Maintenance Insurance [facility] - [facility] Care Teams Hvac Mechanic Relationship Specialty Start Date End Date Jules Escalona MD [address] [place] [address] DINOARH Travis [address] PCP - General Internal Medicine 09/07/19
--- OUTSIDE RECORDS SUMMARY | 2024-08-19 14:42 | XMS_ITS | Encounter Summary ---
Author Organization [employer] Address [address] [facility] 7[address] [place] [address] Care Team Providers Care Bass Mechanism Maker Name Role Phone Jules Escalona MD Primary Care Prov ider Encounter Details Date Type Department Care Team ([facility] Contact Info) Description 08/10/2022 Orders Only [facility] MED & PEDS [address] [place] [address] Jules Escalona MD [address] [place] [address] Social History Tobacco Use Types Packs/Day Years [...] documented as of this encounter Care Teams Bass Mechanism Maker Relationship Specialty Start Date End Date Jules Escalona MD [address] [place] [phone] PCP - General Internal Medicine 09/07/19 documented as of this encounter
--- OUTSIDE RECORDS SUMMARY | 2024-08-19 14:42 | XMS_ITS | Encounter Summary ---
Author Organization [employer] [facility] Address [address] [facility] 7t [place] [address] Care Team Providers Care Clinical Laboratory Technologist Name Role Phone Jules Escalona MD Primary Care Prov ider Encounter Details Date Type Department Care Team (Latest Contact Info) Description 02/23/2021 Abstract [facility] CONVERSIONS Dental, Provider, DDS Social History [...] on filedocumented in this encounter Care Teams Clinical Laboratory Technologist Relationship Specialty Start Date End Date Jules Escalona MD [address] [facility] [place] [place] [address] PCP - General Internal Medicine 09/07/19 documented as of this encounter
--- OUTSIDE RECORDS SUMMARY | 2024-08-19 14:42 | XMS_ITS | Encounter Summary ---
Author Organization [employer] Address [address] [facility] 7t [place] [address] Care Team Providers Care House Wirer Name Role Phone Jules Escalona MD Primary Care Prov ider Reason for Visit * Reason Onset Date Comments left small partial in office 01/31/2023 Encounter Details Date Type Department Care Team ([facility] st Contact Info) Description 01/31/2023 Telephone [facility] [address] [place] [address] Aston Espinoza DDS [address] [place] [address] left small partial in office Social History [...] documented as of this encounter Care Teams House Wirer Relationship Specialty Start Date End Date Jules Escalona MD [address] [place] [address] PCP - General Internal Medicine 09/07/19 documented as of this encounter
--- OUTSIDE RECORDS SUMMARY | 2024-08-19 14:42 | XMS_ITS | Encounter Summary ---
Author Organization [facility] Address [address] [facility] 7t [place] [address] Care Team Providers Care Industrial Illuminating Engineer Name Role Phone Jules Escalona MD Primary Care Prov ider Encounter Details Date Type Department Care Team (Latest Contact Info) Description 04/29/2019 Abstract [facility] CONVERSIONS Dental, Provider, DDS Social History [...] on filedocumented in this encounter Care Teams Industrial Illuminating Engineer Relationship Specialty Start Date End Date Jules Escalona MD [address] [place] [address] PCP - General Internal Medicine 09/07/19 documented as of this encounter
--- OUTSIDE RECORDS SUMMARY | 2024-08-19 14:42 | XMS_ITS | Encounter Summary ---
Author Organization [employer] [facility] Address [address] [facility] 7t [place] [address] Care Team Providers Care Cinder Crew Worker Name Role Phone Jules Escalona MD Primary Care Prov ider Encounter Details Date Type Department Care Team (Latest Contact Info) Description 01/23/2022 Abstract [facility] CONVERSIONS Dental, Provider, DDS Social [...] on filedocumented in this encounter Care Teams Cinder Crew Worker Relationship Specialty Start Date End Date Jules Escalona MD 505 [facility] [place] [address] PCP - General Internal Medicine 09/07/19 documented as of this encounter
--- OUTSIDE RECORDS SUMMARY | 2024-08-19 14:42 | XMS_ITS | Encounter Summary ---
Author Organization [employer] Address [address] [facility] 7t [place] [address] Care Team Providers Care Transcription Name Role Phone Jules Escalona MD Primary Care Prov ider Encounter Details Date Type Department Care Team ([facility] st Contact Info) Description 08/29/2023 Orders Only [facility] [place] [facility] MEDICINE [address] [place] [address] ProviderFredy MD Social History Tobacco Use Types [...] documented as of this encounter Care Teams Transcription Relationship Specialty Start Date End Date CarcamoJules Huff MD [address] [place] [address] PCP - General Internal Medicine 09/07/19 documented as of this encounter
--- OUTSIDE RECORDS SUMMARY | 2024-08-19 14:42 | XMS_ITS | Encounter Summary ---
Author Organization [employer] Address [address] [place] [address] 7 [place] [address] Care Team Providers Care Green Coffee Blender Name Role Phone Jules Escalona MD Primary Care Prov ider Reason for Visit * Reason Onset Date Comments Nurse Triage 11/06/2022 Encounter Details Date Type Department Care Team ([facility] Contact Info) Description 11/06/2022 Telephone [facility] [address] [place] [address] Jules Escalona MD [address] [place] [address] Nurse Triage Social History Tobacco Use Types [...] 4:04 PM EDT Triage call with pacific [employer] [place] Farm[place] [id number] Pt reports blood pressure is up and [...] Getting worse The caller accepted this outcome (Jordanian speaker) documented in this encounter Plan of Treatment Not on file documented as of this encounter Visit Diagnoses Not on filedocumented in this encounter Additional Health Concerns Assessment Noted Time PHQ-9 Depression Total Score: 5 07/31/19 23 8:54 AM EDT documented as of this encounter Care Teams Green Coffee Blender Relationship Specialty Start Date End Date Jules Escalona MD [address] [place] [address] PCP - General Internal Medicine 09/07/19 documented as of this encounter
--- OUTSIDE RECORDS SUMMARY | 2024-08-19 14:42 | XMS_ITS | Encounter Summary ---
Author Organization [employer] Address [address] [facility] 7t [place] [address] Care Team Providers Care Scanner Operator Name Role Phone Jules Escalona MD Primary Care Prov ider Reason for Visit * Reason Comments Med Refill Encounter Details Date Type Department Care Team ([facility] Contact Info) Description 06/23/2023 Refill [facility] MED & PEDS [address] [place] [address] Margie Martínez MD [address] [place] [address] Irritable bowel syndrome with both constipation and [...] documented as of this encounter Care Teams Scanner Operator Relationship Specialty Start Date End Date Jules Escalona MD [address] [place] [address] PCP - General Internal Medicine 09/07/19 documented as of this encounter
--- OUTSIDE RECORDS SUMMARY | 2024-08-19 14:42 | XMS_ITS | Encounter Summary ---
Author Organization [employer] Address [address] [facility] 7t [place] [address] Care Team Providers Care Tree Climber Name Role Phone Jules Escalona MD Primary Care Prov ider Reason for Visit * Reason Comments Med Refill Encounter Details Date Type Department Care Team ([facility] st Contact Info) Description 10/15/2023 Refill [facility] MED & PEDS [address] [place], [place] [phone] Jules Escalona MD [address] [place] [address] Delayed gastric emptying Social History Tobacco Use [...] documented as of this encounter Care Teams Tree Climber Relationship Specialty Start Date End Date Jules Escalona MD [address] [place] [address] PCP - General Internal Medicine 09/07/19 documented as of this encounter
--- OUTSIDE RECORDS SUMMARY | 2024-08-19 14:42 | XMS_ITS | Encounter Summary ---
Author Organization [employer] [facility] Address [address] [facility] 7t [place] [address] Care Team Providers Care Vending Machine Operator Name Role Phone Jules Escalona MD Primary Care Prov ider Encounter Details Date Type Department Care Team (Latest Contact Info) Description 04/15/2020 Abstract [facility] CONVERSIONS Dental, Provider, DDS Social History [...] on filedocumented in this encounter Care Teams Vending Machine Operator Relationship Specialty Start Date End Date Jules Escalona MD [address] [facility] [place] [address] PCP - General Internal Medicine 09/07/19 documented as of this encounter
== END 2024-08-19 13:43 | disposition home or self-care (01) ==
LOC: HO.HOS 12:46
PROVIDERS: Visit Provider Physician Assistant
DX: M22.2X1 Patellofemoral disorders, right knee (principal); M22.2X2 Patellofemoral disorders, left knee
CPT/HCPCS: 99213; G2211

== ENCOUNTER → 2024-08-19 12:45 | Outpatient (BNVA) | payer OTHER, SELFPAY | PROVIDERS: Visit Provider Physician Assistant | DX: M22.2X1 Patellofemoral disorders, right knee (principal); M22.2X2 Patellofemoral disorders, left knee | CPT/HCPCS: 99212 ==

== ENCOUNTER 2024-09-07 09:49 | Outpatient (AMB) | payer OTHER, SELFPAY ==
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
[2024-09-07 09:52] VITALS: BP 136/74; PULSE 82; RESP 16; O2SAT 97; BMI 29.9
--- OUTSIDE RECORDS SUMMARY | 2024-09-07 11:08 | XMS_ITS | Clinical Summary ---
Author Organization [facility] Address [address] [place] [address] Phone Care Team Providers Care Communication Coordinator Name Role Phone Jules Escalona Primary Care [...] of hypertension 03/18/2024 Recurrent major depressive disorder (CMS/HCC V24 ) 03/18/2024 Somatization disorder 03/18/2024 Radicular pain 03/18/2024 [...] Health Maintenance Due Date Last Done Comments Hepatitis A Vaccines (1 of 2 - Risk 2-dose series) 08/19/1979 Pneumococcal Vaccine: 50+ Years (2 of 2 [...] patient's age to complete this topic Insurance [facility] MEDICAID [place] [id number] Care Teams Communication Coordinator Relationship Specialty Start Date End Date Jules Escalona [address] [place] [address] PCP - General 01/02/24
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
--- OUTSIDE RECORDS SUMMARY | 2024-09-07 11:09 | XMS_ITS | Encounter Summary ---
Author Organization [employer] [facility] Address [address] [place] [address] [address] [place] [address] Care Team Providers Care Physical Fitness Teacher Name Role Phone Jules Escalona MD Primary Care Prov ider Encounter Details Date Type Department Care Team (Latest Contact Info) Description 04/29/2019 Abstract [facility] CONVERSIONS Dental, Provider, DDS Social History Tobacco Use Types Packs/Day Years Used Date Smoking Tobacco: Never Assessed Sex and Gender Information Value Date Recorded Sex Assigned at Male 03/12/2022 10:20 AM EDT Legal Sex Male 10:20 AM EDT Gender Identity Male 03/12/2022 10:20 AM EDT Sexual Orientation Straight 03/12/2022 10 :20 AM EDT documented as of this encounter Plan of Treatment Upcoming Encounters Date Type Department Care Team (Late st Contact Info) Description 09/15/2024 8:45 AM EDT Telemedicine [facility] MED & PEDS [address] [place] [address] Jules Escalona MD [address] [place] [address] documented as of this encounter Visit Diagnoses Not on filedocumented in this encounter Care Teams Physical Fitness Teacher Relationship Specialty Start Date End Date Jules Escalona MD [address] [place] [address] PCP - General Internal Medicine 09/07/19 documented as of this encounter
--- OUTSIDE RECORDS SUMMARY | 2024-09-07 11:09 | XMS_ITS | Encounter Summary ---
Author Organization [employer] Address [address] [facility] 7t [place] [address] Care Team Providers Care Automatic Spinning Lathe Setter Name Role Phone Jules Escalona MD Primary Care Prov ider Reason for Visit * Reason Onset Date Comments left small partial in office 01/31/2023 Encounter Details Date Type Department Care Team ([facility] st Contact Info) Description 01/31/2023 Telephone [facility] ADULT DENTAL [address] [place] [address] Aston Espinoza DDS [address] [place] [address] left small partial in office Social History [...] Info) Description 09/15/2024 8:45 AM EDT Telemedicine [facility] MED & PEDS [address] [place] [address] Jules Escalona MD [address] [place] [address] documented as of this encounter Visit Diagnoses Not on filedocumented in this encounter Additional Health Concerns Assessment Noted Time PHQ-9 Depression Total Score: 5 07/31/19 23 8:54 AM EDT documented as of this encounter Care Teams Automatic Spinning Lathe Setter Relationship Specialty Start Date End Date Jules Escalona MD [address] [place] [address] PCP - General Internal Medicine 09/07/19 documented as of this encounter
--- OUTSIDE RECORDS SUMMARY | 2024-09-07 11:09 | XMS_ITS | Encounter Summary ---
Author Organization [employer] Address [address] [place] [address] [address] [place] [address] Care Team Providers Care Home Sales Consultant Name Role Phone Jules Escalona MD Primary Care Prov ider Encounter Details Date Type Department Care Team ([facility] Contact Info) Description 08/10/2022 Orders Only [facility] MED & PEDS [address] [place], [place] [phone] Jules Escalona MD [address] [place], [place] [phone] Social History Tobacco Use Types Packs/Day Years [...] Encounters Date Type Department Care Team (Late Contact Info) Description 09/15/2024 8:45 AM EDT Telemedicine [facility] MED & PEDS [address] [place], [place] [phone] Jules Escalona MD [address] [place] [address] documented as of this encounter Visit Diagnoses Not on filedocumented in this encounter Additional Health Concerns Assessment Noted Time PHQ-9 Depression Total Score: 5 07/31/19 23 8:54 AM EDT documented as of this encounter Care Teams Home Sales Consultant Relationship Specialty Start Date End Date Jules Escalona MD [address] [place] [address] PCP - General Internal Medicine 09/07/19 documented as of this encounter
--- OUTSIDE RECORDS SUMMARY | 2024-09-07 11:09 | XMS_ITS | Clinical Summary ---
Author Organization [employer] Address [address] [facility] [address] [place] [address] Care Team Providers Care Supervisor Metal Furniture Fabrication Name Role Phone Jules Escalona MD Primary [...] naloxone (Narcan) 4 mg/0.1 mL nasal spray [place] 0.1 mL into one nostril. Repeat with [...] EVENING MEAL 90 tablet 2 025 Active dicyclomine (Bentyl) 20 MG tabletIndications :Irritable bowel syndrome with both constipation and diarrhea TAKE 1 TABLET BY MOUTH THREE TIMES DAILY WITH BREAKFAST, LUNCH AND EVENING MEAL 90 tablet 2 025 2024 Discontinued(R eorder (will not trigger notification to Pharmacy)) dicyclomine (Bentyl) 20 MG tabletIndications :Irritable bowel syndrome with both constipation and diarrhea TAKE 1 TABLET BY MOUTH THREE TIMES DAILY WITH BREAKFAST, LUNCH AND EVENING MEAL 90 tablet 2 025 2024 Discontinued Active Problems Problem Noted Date Diagnosed Date [...] bp, target <140/90 >90/60, follow up with ethnology teacher as scheduled Assessment & Plan (11/07/2022 9:44 [...] (06/18/2023): Added automatically from request for surgery [id number] Last Assessment & Plan: Continued sporadic epigastric [...] (06/18/2023): Added automatically from request for surgery [id number] Delayed gastric emptying 08/09/2020 Overview (01/18/2023): Added automatically from request for surgery [id number] Esophageal dysphagia 06/06/2020 06/18/2023 Overview (06/18/2023): Last [...] Encounters Date Type Department Care Team Description 08/22/2024 Refill [facility] [address] [place] [address] Jules Escalona MD Irritable bowel syndrome with both constipation and diarrhea 08/11/2024 Telephone [facility] [address] [place] [address] Jules Escalona MD Results; Medication Question 07/28/2024 Refill [facility] [address] [place] [address] Jules Escalona MD 07/02/2024 Refill [facility] [address] [place] [address] Jules Escalona MD Mixed hyperlipidemia 06/09/2024 8:30 AM EST Telemedicine [facility] [address] [place] [address] Jules Escalona MD Elevated blood pressure reading in office without diagnosis of hypertension (Primary Dx); Seasonal allergies; Prediabetes; Chronic bilateral low back pain with bilateral sciatica 06/09/2024 Travel from Last 3 Months Immunizations Name Administration [...] 04/02/2024 11:00 AM EST Plan of Treatment Upcoming Encounters Date Type Department Care Team ([facility] st Contact Info) Description 09/15/2024 8:45 AM EDT Telemedicine [facility] [address] [place], [place] [phone] Jules Ecsalona MD [address] [place], [place] [phone] Health Maintenance Due Date Last Done Comments [...] PM EST) Hemoglobin A1c 6.1(H) <6.0 % [facility] Comment:Hemoglobin A1C Refer ence Range Adults: 4.8 - 6.0 % Non diabetic: < 6.0 % Goal: < 7.0 %Additional Action Suggested: > 8.0 %Note: Hemoglobin A1c results are invalid for patients with abnormal amounts of HbF. Blood transfusions may impact the HbA1c concentration in the patient sample. Estimated Average Glucose 128 mg/dL [facility] Comment:eAG = Estimated ave rage glucose which is %A1C expressed asaverage glucose, using the formula of the D2Q-IyxayfjWhiiuxh Glucose study (ADAG), Diabetes Care, Vol.31,#8,Dec. 2007 Blood Venous blood specimen / Unknown 06/15/2024 2:52 PM EST 06/15/2024 5:39 PM EST us Jules Lopez MD LAB BLOOD ORDERABL ES Final Result [facility] [address] [place] [phone] * (ABNORMAL) Comprehensive Metabolic Panel (06/15/2024 2:52 PM EST) Sodium 139 135 - 145 mmol/L [facility] Potassium 3.6 3.3 - 5.1 mmol/L [facility] Chloride 102 96 - 108 mmol/L [facility] Carbon Dioxide 30(H) 22 - 29 mmol/L [facility] Anion Gap 11(L) 12 - 20 [facility] Urea Nitrogen (BUN) 12 9 - 16 mg/dL [facility] Creatinine, Serum 0.95 0.5 - 1.4 mg/dL [facility] Estimated Glomerular Filt Rate >60 [facility] Comment:Chronic Kidney Disea se: Estimated GFR < 60 mL/min/1.85m5Tkjkat Kidney Disease: Estimated GFR < 15 mL/min/1.73m2 Glucose 61 60 - 115 mg/dL [facility] Calcium 9.4 8.4 - 10.2 mg/dL [facility] Bilirubin, Total 0.3 0.0 - 1.0 mg/dL [facility] Aspartate Amino Transferase 40(H) 5 - 37 U/L [facility] Alanine Aminotransferase 48(H) 0 - 40 U/L [facility] Total Protein 8.1(H) 6.5 - 8.0 g/dL [facility] Albumin Level 4.4 3.5 - 5.0 g/dL [facility] Alkaline Phosphatase 83 39 - 117 U/L [facility] Blood Venous blood specimen / Unknown 06/15/2024 2:52 PM EST 06/15/2024 5:39 PM EST us Jules Lopez MD LAB BLOOD ORDERABL ES Final Result [facility] [address] [place] [phone] * (ABNORMAL) Lipid Panel, Standard (03/25/2024 8:33 AM EST) Triglycerides 233(H) <150 mg/dL [facility] Comment:Slight Lipemia.Claudette able Triglyceride: less than 150 mg/dLBorderline High Triglyceride 150-199 mg/dLHigh Triglyceride: 200-499 mg/dLVery High Triglyceride: greater than or equal to 5OO mg/dL Cholesterol 180 <200 mg/dL [facility] Comment:Desirable Cholestero l: less than 200 mg/dLBorderline High Cholesterol: 200-239 mg/dLHigh Cholesterol: greater than 239 mg/dL LDL Cholesterol Calculated 82 <100 mg/dL [facility] Comment:Desirable LDL: less than 100 mg/dLNear Optimal/Above Optimal LDL: 110- 129 mg/dLBorderline High LDL: 130-159 mg/dLHigh LDL: 160-189 mg/dLVery High LDL: greater than or equal to 190 mg/dL HDL Cholesterol 52 >40 mg/dL [facility] Comment:Desirable HDL: great er than 40 mg/dL Note: This HDL assay may give artificially low results in patients with liver disease. Blood Venous blood specimen / Unknown 03/25/2024 8:33 AM EST 03/25/2024 2:19 PM EST Jules Lopez MD LAB BLOOD ORDERABL ES Final Result Performing Organization Address [facility]/ZIP Co de Phone Number [facility] [address] [place] [phone] * Hm Colonoscopy (07/05/2023 8:17 AM EST) Fredy Cadet MD HEALTH MAINTENANCE Final Result * HIV-1 RNA, Quantitative, Real-Time PCR with Reflex to Genotype (RTI, PI, Integrase) (07/30/2022 9:03 AM EDT) Pathologist [facility] HIV 1 RNA, QN PCR NOT DETECTED copies/mL [facility], HIV 1 RNA, QN PCR NOT DETECTED Log copies/mL [facility], Comment: REFERENCE RANGE: NOT DETECTED copies/mL ?NOT DETECTED ??Log copies/mL This test was performed using Real-Time Polymerase Chain Reaction. Reportable range is 20 to 10,000,000 copies/mL (1.30-7.00 Log copies/mL). 07/30/2022 9:03 AM EDT 07/30/2022 9:03 AM EDT Narrative [facility] - 08/02/2022 7:14 PM EDT FASTING:YES FASTING: YES Jules Lopez MD LAB BLOOD ORDERABL ES Final Result Performing Organization Address City/[facility] Co de Phone Number [facility] [address], [place] [address] [facility], [address] [place] [address] * Hepatitis C Antibody with Reflex to HCV, RNA, Quantitative, Real-Time PCR (07/30/2022 9:03 AM EDT) Hepatitis C Antibody NON-REACT KELLY NON-REACT KELLY [facility] [place] [facility] Index 0.05 <1.00 [facility] [place] [facility] Comment: HCV antibody was non-reactive. There is no laboratory evidence of HCV infection. In most cases, no further action is required. However, if recent HCV exposure is suspected, a test for HCV RNA (test code 84961) is suggested. For additional information please refer to http://Nutshell.Infantium/faq/XQA73v1 (This link is being provided for informational/ educational purposes only.) Blood Venous blood specimen / Unknown 07/30/2022 9:03 AM EDT 07/30/2022 9:03 AM EDT Narrative [facility] - 08/02/2022 7:14 PM EDT FASTING:YES FASTING: YES Jules Lopez MD LAB BLOOD ORDERABL ES Final Result Performing Organization Address City/State/[facility] Co de Phone Number [facility] [address], [facility] [place] [address] [facility] [place] [facility] [address] [place] [address] from Last 3 Months or Most Recently Relevant to Health Maintenance Insurance [facility] CARE < 65 [facility] Care Teams Supervisor Metal Furniture Fab[employer] Relationship Specialty Start Date End Date Jules Escalona MD [address] [place] [address] DINOR[place] Black [id number] PCP - General Internal Medicine 09/07/19
--- OUTSIDE RECORDS SUMMARY | 2024-09-07 11:09 | XMS_ITS | Encounter Summary ---
Author Organization [employer] Address [address] [facility] 7t [place] [address] Care Team Providers Care Security Solutions Engineer Name Role Phone Jules Escalona MD Primary Care Prov ider Reason for Visit * Reason Comments Med Refill Encounter Details Date Type Department Care Team ([facility] st Contact Info) Description 06/05/2024 Refill [facility] [address] [place] [address] Jules Escalona MD [address] [place] [address] Seasonal allergies Social History Tobacco Use Types [...] Description 09/15/2024 8:45 AM EDT Telemedicine [facility] [address] [place] [address] Jules Escalona MD [address] [place] [address] documented as of this encounter Visit Diagnoses Diagnosis Seasonal allergies Allergic rhinitis, cause unspecified documented in this encounter Additional Health Concerns Assessment Noted Time PHQ-9 Depression Total Score: 5 07/31/19 23 8:54 AM EDT documented as of this encounter Care Teams Security Solutions Engineer Relationship Specialty Start Date End Date Jules Escalona MD [address] [place] [address] PCP - General Internal Medicine 09/07/19 documented as of this encounter
--- OUTSIDE RECORDS SUMMARY | 2024-09-07 11:09 | XMS_ITS | Data Portability ---
Author Organization [employer] Address [address] [place] [address] Care Team Providers Care Cigar Packer Name Role Phone [facility] Referring Provider [phone] [facility] Referring Provider Assessment Encounter Date Assessment Date Assessment LastModified by Organization Details LastModified Time 09/29/2021 09/29/2021 I have reviewed and agree with the assessment and plan as documented by the business development director. I provided real time medical direction for this encounter and was immediately available to provide additional phone based assistance as needed. History as noted by business development director. Pt with history of chest pain and [...] en route to the ED. In the [facility] ED, the pt reportedly did not [...] son drive him now to the [facility] ED (pt does not want to return to [facility]). btils Not available 09/29/2021 16:14:40 01/10/2022 01/10/2022 I have reviewed and agree with the assessment and plan as documented by the business development director. I provided real time medical direction for this encounter and was immediately available to provide additional phone based assistance as needed. History as noted by business development director. Pt with long history of chronic pain [...] denies renal issues. 1) CAM ketorolac by business development director 2) lidocaine gel to pharmacy 3) diclofenac gel to pharmacy 4) [facility] w pain [facility] Not available 02/01/2022 18:25:27 08/13/2022 08/13/2022 As noted, we wer e called to see this patient regarding concerns of chest pain. Evaluation in the field was performed by my business development director colleague, as noted above, I provided real-time [...] patient had a negative stress test [place] [facility] several months ago. Despite this, the presentation [...] Assessment and Plan as documented by the Utility Plant Operative. Patient given the opportunity to ask questions. [...] None recorded. Imaging electrocard iogram [address], [phone] 4 05:00:54 electrocard iogram [address], [phone] 2 10:43:33 electrocard iogram 2021 022 btils [facility], [address] [place] [address], [phone] 2 16:15:33 Medication Orders aspirin 325 mg tablet 2022 023 [id number], [address], [place], [id number], 3 18:58:01 ketorolac 30 mg/mL (1 mL) injection solution 2021 022 [facility] Not available 18:14:55 Aspercreme (lidocaine HCl) 4 % topical 2021 [facility] #[id number], [address], DINORAH Black, [id number], 2 18:21:17 diclofenac 1 % topical gel 2021 [facility]93073, [address], [place] Black, [id number], 2 18:21:57 ketorolac 30 mg/mL injection solution [...] diogr am No observ ation record ed. [facility] [address] [place] [address], [phone] 09/29/2021 16:15:30 01/11/20 22 01/10/2022 elect rocar diogr am No observ ation record ed. [facility] [address] [place] [address], [phone] 01/10/2022 10:43:30 11/28/19 23 11/29/2022 elect rocar diogr am No observ ation record ed. [place] [id number] Main - [facility] [address] [place] [address], [phone] 11/29/2022 10:41:51 Result Notes None recorded. Procedures Surgical History None recorded. Imaging Results Imaging Date Name Status LastModified by Organization Details LastModified Time 09/29/2021 electrocardiogram completed [address], [phone] 09/29/2021 16:15:30 01/10/2022 [facility] [address] [place] [address], [phone] 01/10/2022 10:43:30 11/29/2022 electrocardiogram completed [address] [facility] [address] [place] [address], [phone] 11/29/2022 10:41:51 Procedure Notes None recorded. Medical [...] /min 110 mm[Hg] 74 mm[Hg] Not Available [facility] 2 14:41:44 Date Recorded Body temperature Body weight Heart rate Respiratory rate Body height Oxygen saturation Oxygen saturation in Arterial blood by Pulse oximetry Systolic blood pressure Diastolic blood pressure Provider Name and Address Organization Details Last Updated DateTime 3 97.6 [degF] 21547.6 g 79 /min 16 /min 162.56 cm 96 % 96 % 117 mm[Hg] 85 mm[Hg] Not Available [facility] 3 21:43:02 Date Recorded Body temperature Heart [...] /min 18 /min 98 % 98 % 93831.6 g 162.56 cm 98.6 [degF] 98 % 98 % 99526.6 g 18 /min 98 /min 162.56 cm 114 mm[Hg] 80 mm[Hg] 114 mm[Hg] 80 mm[Hg] Not Available [facility] 2 11:17:56 Date Recorded Body temperature Heart rate Oxygen saturation Oxygen saturation in Arterial blood by Pulse oximetry Respiratory rate Body weight Body height Systolic blood pressure Diastolic blood pressure Provider Name and Address Organization Details Last Updated DateTime 2 97.9 [degF] 92 /min 97 % 97 % 18 /min 98378.5 6 g 162.56 cm 119 mm[Hg] 81 mm[Hg] Not Available Year [facility] 2 18:06:29 Date Recorded Heart rate Respiratory [...] /min 14 /min 97 % 97 % 61904.5 6 g 99.3 [degF] 97 % 97 % 14 /min 99.3 [degF] 92 /min 14317.5 6 g 114 mm[Hg] 73 mm[Hg] 114 [...] 295 Noah Forbes MD Main - [facility] [address] [place] [phone] 07/13/2021 13:11:34 12/27/2021 13:01:01 Dry cough 04379106 R05.9 1698 Antonio Dove MD Main - [facility] [address] [place] [phone] 09/29/2021 14:41:35 02/13/2022 09:59:05 Chest pain 89208530 R07.9 3669 Antonio Dove MD Main - [facility] [address] [place] [phone] 01/10/2022 10:28:17 02/13/2022 12:36:46 Chest pain 26349762 R07.9 4156 Deanne Rod MD Main - [facility] [address] [place] [phone] 02/01/2022 18:06:26 02/06/2022 14:02:54 Musculoskeletal pain 110123399 M79.10 9087 AGAPITO MYERS MD Main - [facility] [address] [place] [phone] 08/13/2022 18:23:25 08/14/2022 22:49:15 Chest pain 15203217 R07.9 57666 Odalys Díaz MD Main - [address] [phone] 11/27/2022 21:42:53 11/28/2022 09:09:55 Palpitations 34138148 R00.2 Health Concerns Section Related Observation LastModified [...] (MEDICARE REPLACEMENT/AD VANTAGE - HMO) Pedrito Fulton [id number] Pedrito Fulton 01/10/2022 1 [facility] - DOS PRIOR TO 2022 - DUAL ELIGIBLE (MEDICARE REPLACEMENT/AD VANTAGE - HMO) Pedrito Fulton [id number] Pedrito Fulton 02/01/2022 1 [facility] DOS PRIOR TO 2022 - DUAL ELIGIBLE (MEDICARE REPLACEMENT/AD VANTAGE - HMO) Pedrito Fulton [id number] Pedrito Fulton 08/13/2022 1 [facility] - DOS PRIOR TO 2022 - DUAL ELIGIBLE (MEDICARE REPLACEMENT/AD VANTAGE - HMO) Pedrito Fulton [id number] Pedrito Fulton 11/27/2022 1 [facility] - DOS ON OR AFTER 2022 - DUAL ELIGIBLE - USP OPTIONS AND ONE CARE (MEDICARE REPLACEMENT/AD VANTAGE - HMO) Pedrito Fulton [id number] Pedrito Fulton Notes Date Note Type Note Provider Name and Address Organization Details Recorded Time 09/29/2021 text/html This was a supervised home visit with business development director Adrian Dan. HPI: REvisit from this AM> [...] ................... ................... ................... ................... ................... ................... ........ Utility Plant Operative Note: Pt complaint of left sided chest/arm/leg pain x5 months. Describes it as burning. EKG. [facility] contacted. Pt was advised to go to ED via ambulance. Pt stated he would have his son take him to [facility]. ................... ................... ................... ................... ................... ................... ................... ........ Disposition: Fulfilled Antonio Dove MD [address] [place] [address],[address], [place], [phone], [facility] - [employer] 09/29/2021 16:16:31 01/10/2022 text/html This was a supervised home visit with business development director Elba Lopez. HPI: Member said he is having left arm pain and left chest pain. He refused to go the emergency and he said [facility] usually come and give him some medicationsl History of spinal stenosis Allergic Benadryl and Tramadol ................... ................... ................... ................... ................... ................... ................... ........ CRC Nursing Assessment: Comments: CRC emailed CP , awaiting response if member is safe to wait overnight Spoke with member who has chronic chest pain, member has had cardiac work up in the past and continues to work with a pneumatic jacketer to determine why member has pain . Member is awaiting stress test and other tests in the future. Daughter is with member and stated this is his normal baseline and he is safe an stable but they are aware of when to call 911 ................... ................... ................... ................... ................... ................... ................... ........ Utility Plant Operative Note: Sent to a call for a [...] the past. 12 lead ECG: uploaded to e|tab. Pt denies sob, v/d, abd pain, fever [...] ................... ........ Disposition: Fulfilled Antonio Dove MD [address] [place] [address],[address] [facility], [place], [phone], [employer] 01/10/2022 11:27:39 02/01/2022 text/html HPI: Member has [...] NEED FURTHER INFO Deanne Rod MD [address] [facility],[address], [place], [phone], [place] [employer] [facility] [employer] 02/01/2022 18:25:58 08/13/2022 text/html HPI: Member's daughter Lexi called into the CRU in behalf of her father Pedrito. Lexi states that Pedrito is complaining of nausea, dizziness and his BP is elevated. Lexi does not have the recorded BP. she states Pedrito is mostly [place]se speaking. She is asking for an [employer] visit. ................... ................... ................... ................... ................... ................... ................... ........ CRC Nursing Assessment: Comments: RN spoke to member via fusing machine operator. BP 91/70 today at 5 min ago. [...] ................... ................... ................... ................... ................... ................... ........ Utility Plant Operative Note From Melquiades Rhodes: Pt complains of left anterior chest pain that radiates down his left arm. Pt reports that he was seen at [facility] on 08/10 for the same complaint [...] diagnostic for STEM NSR with no ectopy. [facility] contacted who agreed that pt should be sent back to ED for cardiac work up and 911 was initiated . Pt administered 324 MG ASA PO and pt care was transferred to [facility] for transport back to ED. ................... ................... ................... ................... ................... ................... ................... ........ Disposition: Fulfilled AGAPITO MYERS MD [address] [facility],[address], [place], [phone], [employer] 08/13/2022 18:58:40 11/27/2022 text/html HPI: anxiety, heart palpatations ................... ................... ................... ................... ................... ................... ................... ........ [facility] Nursing Assessment: Comments: Call to member via Correspondence Specialist [phone] for additional information. Member who feels anxious, [...] ................... ................... ................... ................... ................... ................... ........ Utility Plant Operative Note From Clive Del Valle: Mobile health [...] ................... ........ Disposition: Fulfilled Odalys Díaz MD [address] [place] [address],[address] [facility], [place], [phone], DIN[facility] - [facility]DEL[employer]HMAN [facility] 11/27/2022 21:46:07"
--- OUTSIDE RECORDS SUMMARY | 2024-09-07 11:09 | XMS_ITS | Encounter Summary ---
Author Organization [employer] Address [address] [facility] 7t [place] [address] Care Team Providers Care Neon Glass Bender Name Role Phone Jules Escalona MD Primary Care Prov ider Encounter Details Date Type Department Care Team ([facility] st Contact Info) Description 08/29/2023 Orders Only [facility] MEDICINE [address] [place] [address] ProviderFredy MD Social History Tobacco Use Types [...] Info) Description 09/15/2024 8:45 AM EDT Telemedicine [facility] MED & PEDS [address] [place] [address] Jules Escalona MD [address] [place] [address] documented as of this encounter Procedures Procedure Name Priority Date/Time Associated Diagnosis Comments COLONOSCOPY Routine 07/05/2023 8:17 AM EST COLONOSCOPY Routine 08/04/2013 8:19 AM EDT documented in this encounter Results * Colonoscopy (07/05/2023 8:17 AM EST) us Historical Provider HEALTH MAINTENANCE Final Result * Colonoscopy (08/04/2013 8:19 AM EDT) Colonoscopy Normal Normal Narrative Mona Mata - 08/04/2013 8:19 AM EDT Pathology report unavailable for upload but recent GI notes state that 2013 colonoscopy was normal us Historical Provider MD MEAD MAINTENANCE Edited Result - Final documented in this encounter Visit Diagnoses Not on filedocumented in this encounter Additional Health Concerns Assessment Noted Time PHQ-9 Depression Total Score: 5 07/31/19 23 8:54 AM EDT documented as of this encounter Care Teams Neon Glass Bender Relationship Specialty Start Date End Date Jules Escalona MD [address] [place] [address] PCP - General Internal Medicine 09/07/19 documented as of this encounter
--- OUTSIDE RECORDS SUMMARY | 2024-09-07 11:09 | XMS_ITS | Encounter Summary ---
Author Organization [employer] Address [address] [place] [address] 7 [place] [address] Care Team Providers Care Home Health Care Provider Name Role Phone Jules Escalona MD Primary Care Prov ider Reason for Visit * Reason Onset Date Comments Nurse Triage 11/06/2022 Encounter Details Date Type Department Care Team ([facility] Contact Info) Description 11/06/2022 Telephone [facility] PEDS [address] [place] [address] Jules Escalona MD [address] [place] [address] Nurse Triage Social History Tobacco Use Types [...] 4:04 PM EDT Triage call with [place] [employer] [place] [id number] Pt reports blood pressure is up and [...] Getting worse The caller accepted this outcome (Swedish speaker) documented in this encounter Plan of Treatment Upcoming Encounters Date Type Department Care Team (Late st Contact Info) Description 09/15/2024 8:45 AM EDT Telemedicine [facility] MED & PEDS [address] [place] [address] Jules Escalona MD [address] [place] [address] documented as of this encounter Visit Diagnoses Not on filedocumented in this encounter Additional Health Concerns Assessment Noted Time PHQ-9 Depression Total Score: 5 07/31/19 23 8:54 AM EDT documented as of this encounter Care Teams Home Health Care Provider Relationship Specialty Start Date End Date Jules Escalona MD [address] [place] [address] PCP - General Internal Medicine 09/07/19 documented as of this encounter
--- OUTSIDE RECORDS SUMMARY | 2024-09-07 11:09 | XMS_ITS | Encounter Summary ---
Author Organization [employer] Address [address] [facility] 7t [place] [address] Care Team Providers Care Clinical Informatics Director Name Role Phone Jules Escalona MD Primary Care Prov ider Reason for Visit * Reason Comments Med Refill Encounter Details Date Type Department Care Team ([facility] st Contact Info) Description 10/15/2023 Refill [facility] MED & PEDS [address] [place], [place] [phone] Jules Escalona MD [address] [place] [address] Delayed gastric emptying Social History Tobacco Use [...] Description 09/15/2024 8:45 AM EDT Telemedicine [facility] MED & PEDS [address] [place] [address] Jules Escalona MD [address] [place] [address] documented as of this encounter Visit Diagnoses Diagnosis Delayed gastric emptying Dyspepsia and other specified disorders of function of stomach documented in this encounter Additional Health Concerns Assessment Noted Time PHQ-9 Depression Total Score: 5 07/31/19 23 8:54 AM EDT documented as of this encounter Care Teams Clinical Informatics Director Relationship Specialty Start Date End Date Jules Escalona MD [address] [place] [address] PCP - General Internal Medicine 09/07/19 documented as of this encounter
--- OUTSIDE RECORDS SUMMARY | 2024-09-07 11:09 | XMS_ITS | Encounter Summary ---
Author Organization [employer] Address [address] [facility] 7[address] [place] [address] Care Team Providers Care Engine Test Cell Technician Name Role Phone Jules Escalona MD Primary Care Prov ider Reason for Visit * Reason Comments Med Refill Encounter Details Date Type Department Care Team ([facility] Contact Info) Description 06/23/2023 Refill [facility] CH[facility] MED & PEDS [address] [place] [address] Margie Martínez MD [address] [place] [address] Irritable bowel syndrome with both constipation and [...] Info) Description 09/15/2024 8:45 AM EDT Telemedicine [facility] MED & PEDS [address] [place] [address] Jules Escalona MD [address] [place] [address] documented as of this encounter Visit Diagnoses Diagnosis Irritable bowel syndrome with both constipation and diarrhea Delayed gastric emptying Dyspepsia and other specified disorders of function of stomach documented in this encounter Additional Health Concerns Assessment Noted Time PHQ-9 Depression Total Score: 5 07/31/19 23 8:54 AM EDT documented as of this encounter Care Teams Engine Test Cell Technician Relationship Specialty Start Date End Date Jules Escalona MD [address] [place] [address] PCP - General Internal Medicine 09/07/19 documented as of this encounter
--- OUTSIDE RECORDS SUMMARY | 2024-09-07 11:09 | XMS_ITS | Encounter Summary ---
Author Organization [employer] Address [address] [facility] [address] 7[address] [place] [address] Care Team Providers Care Small Products I Assembler Name Role Phone Jules Escalona MD Primary Care Prov ider Encounter Details Date Type Department Care Team ([facility] Contact Info) Description 10/14/2023 Telephone [facility] ADULT DENTAL [address] [place] [address] Sherine Ramirez DMD Social History Tobacco Use [...] Info) Description 09/15/2024 8:45 AM EDT Telemedicine [facility] MED & PEDS [address] [place] [address] Jules Escalona MD [address] [place] [address] documented as of this encounter Visit Diagnoses Not on filedocumented in this encounter Additional Health Concerns Assessment Noted Time PHQ-9 Depression Total Score: 5 07/31/19 23 8:54 AM EDT documented as of this encounter Care Teams Small Products I Assembler Relationship Specialty Start Date End Date Jules Escalona MD [address] [place] [address] PCP - General Internal Medicine 09/07/19 documented as of this encounter
--- OUTSIDE RECORDS SUMMARY | 2024-09-07 11:09 | XMS_ITS | Encounter Summary ---
Author Organization [facility] Address [address] [place] [address] [address] [place] [address] Care Team Providers Care Residential Sales Manager Name Role Phone Jules Escalona MD Primary Care Prov ider Encounter Details Date Type Department Care Team (Latest Contact Info) Description 02/23/2021 Abstract [facility] CONVERSIONS Dental, Provider, DDS Social History [...] Upcoming Encounters Date Type Department Care Team ([facility] st Contact Info) Description 09/15/2024 8:45 AM EDT Telemedicine [facility] CHC MED & PEDS [address] [place] [address] Jules Escalona MD [address] [place] [address] documented as of this encounter Visit Diagnoses Not on filedocumented in this encounter Care Teams Residential Sales Manager Relationship Specialty Start Date End Date Jules Escalona MD [address] [place] [address] PCP - General Internal Medicine 09/07/19 documented as of this encounter
--- OUTSIDE RECORDS SUMMARY | 2024-09-07 11:09 | XMS_ITS | Encounter Summary ---
Author Organization [employer] [facility] Address [address] [place] [address] [address] [place] [address] Care Team Providers Care Tube Filler Name Role Phone Jules Escalona MD Primary Care Prov ider Encounter Details Date Type Department Care Team (Latest Contact Info) Description 04/15/2020 Abstract [facility] CONVERSIONS Dental, Provider, DDS Social History [...] Info) Description 09/15/2024 8:45 AM EDT Telemedicine [facility] MED & PEDS [address] [place] [address] Jules Escalona MD [address] [place] [address] documented as of this encounter Visit Diagnoses Not on filedocumented in this encounter Care Teams Tube Filler Relationship Specialty Start Date End Date Jules Escalona MD [address] [place] [address] PCP - General Internal Medicine 09/07/19 documented as of this encounter
--- OUTSIDE RECORDS SUMMARY | 2024-09-07 11:09 | XMS_ITS | Encounter Summary ---
Author Organization [facility] Address [address] [place] [address] [address] [place] [address] Care Team Providers Care [place] Line Attendant Name Role Phone Jules Escalona MD Primary Care Prov ider Encounter Details Date Type Department Care Team (Latest Contact Info) Description 01/23/2022 Abstract [facility] CONVERSIONS Dental, Provider, DDS Social History [...] Upcoming Encounters Date Type Department Care Team ([facility] st Contact Info) Description 09/15/2024 8:45 AM EDT Telemedicine [facility] CHC MED & PEDS [address] [place] [address] Jules Escalona MD [address] [place] [address] documented as of this encounter Visit Diagnoses Not on filedocumented in this encounter Care Teams [place] Line Attendant Relationship Specialty Start Date End Date Jules Escalona MD [address] [place] [address] PCP - General Internal Medicine 09/07/19 documented as of this encounter
== END 2024-09-07 10:33 | disposition home or self-care (01) ==
PROVIDERS: PCP Internal Medicine; Visit Provider Internal Medicine
DX: M53.3 Sacrococcygeal disorders, not elsewhere classified (principal)
CPT/HCPCS: 99204

== ENCOUNTER → 2024-09-07 09:49 | Outpatient (BNVA) | payer OTHER, SELFPAY | PROVIDERS: PCP Internal Medicine; Visit Provider Internal Medicine | DX: M53.3 Sacrococcygeal disorders, not elsewhere classified (principal) | CPT/HCPCS: 99202 ==

== ENCOUNTER 2024-10-15 10:29 | Outpatient (AMB) | payer OTHER, SELFPAY ==
--- NOTE | 2024-10-15 10:32 | A.OFFVIS_ITS ---
Vital Signs 10/15/24 10:51 Height 5 ft 4 in Weight 174 lb BMI 29.9 Intake Visit Reasons: Inj- B/L knee Euflexxa inj #1 Intake Note: Pedrito is a 64 year old male who presents today for bilateral knee Euflexxa injections #1. Allergies phenytoin [From DILANTIN] Allergy (Intermediate, Verified 10/15/24 10:51) NAUSEA buprenorphine [Belbuca] Allergy (Unknown, Verified 10/15/24 10:51) nausea tramadol [TRAMADOL] Allergy (Unknown, Verified 10/15/24 10:51) UNABLE TO SLEEP , AGITATION, restless leg syndrome diphenhydramine Allergy (Verified 10/15/24 10:51) RLS, shaky,agitation benafdryl Allergy (Uncoded 10/15/24 10:51) Unknown HPI HPI Inj- B/L knee Euflexxa inj #1: Details: 64 year old male who presents today for bilateral knee Euflexxa injections #1. 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 Right knee tenderness along the lateral joint line which extends posteriorly. Has pain in the right knee with a varus stress testing. Full range of motion bilaterally. No ligamentous laxity. Office Procedures AMB Joint Injection/Aspiration Joint Injection/Aspiration Details: bilat knee euflexxa Primary Site: right knee Secondary Site: left knee Prep: site was prepped using aseptic technique, ethochloride spray was applied and injection warnings given Injected: in the joint Approach Used: anterolateral Procedure: The patient tolerated the procedure well Coding 39362 - Glenohumeral/Tronchanteric Bursa/Intraarticular Procedure code (CPT) selection complete Assessment & Plan Assessment & Plan (1) Patellofemoral pain syndrome of right knee: Code(s): M22.2X1 - Patellofemoral disorders, right knee Category: Medical (2) Patellofemoral pain syndrome of left knee: Code(s): M22.2X2 - Patellofemoral disorders, left knee Category: Medical Plan Plan was to proceed with gel injection today. Bilat knee euflexxa Injection performed today which the patient tolerated well. She will rest ice and use anti-inflammatories as needed for the next several days. I will see her back in 1 week for injection number Coding Level of Care Code Procedure Only Diagnoses Patellofemoral pain syndrome of right knee M22.2X1 Patellofemoral pain syndrome of left knee M22.2X2 CPT Codes Coding - Joint 7: 77630 - Glenohumeral/Tronchanteric Bursa/Intraarticular ([id number])
[2024-10-15 10:51] VITALS: BMI 29.9
== END 2024-10-15 10:47 | disposition home or self-care (01) ==
LOC: HO.HOS 10:30
PROVIDERS: PCP Internal Medicine; Visit Provider Physician Assistant
DX: M22.2X1 Patellofemoral disorders, right knee (principal); M22.2X2 Patellofemoral disorders, left knee
CPT/HCPCS: 20610

== ENCOUNTER → 2024-10-15 10:29 | Outpatient (BNVA) | payer OTHER, SELFPAY | PROVIDERS: PCP Internal Medicine; Visit Provider Physician Assistant | DX: M22.2X1 Patellofemoral disorders, right knee (principal); M22.2X2 Patellofemoral disorders, left knee; M17.0 Bilateral primary osteoarthritis of knee | CPT/HCPCS: 20610; J7323 ==

== ENCOUNTER 2024-10-22 10:33 | Outpatient (AMB) | payer OTHER, SELFPAY ==
--- NOTE | 2024-10-22 10:47 | MHC.OFFVIS ---
Intake Visit Reasons: Inj- B/L knee Euflexxa inj #2 Consulting Technical Manager Required: Yes Consulting Technical Manager Services: Consulting Technical Manager Offered & Declined Allergies phenytoin [From DILANTIN] Allergy (Intermediate, Verified 10/22/24 10:49) NAUSEA buprenorphine [Belbuca] Allergy (Unknown, Verified 10/22/24 10:49) nausea tramadol [TRAMADOL] Allergy (Unknown, Verified 10/22/24 10:49) UNABLE TO SLEEP , AGITATION, restless leg syndrome diphenhydramine Allergy (Verified 10/22/24 10:49) RLS, shaky,agitation benafdryl Allergy (Uncoded 10/22/24 10:49) Unknown HPI HPI Inj- B/L knee Euflexxa inj #2: Details: 64-year-old gentleman returns to the office today #2. Injection bilateral knee Euflexxa. The patient is complaining of increased discomfort and instability in both knees. 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 Right knee tenderness along the lateral joint line which extends posteriorly. Has pain in the right knee with a varus stress testing. Full range of motion bilaterally. No ligamentous laxity. Office Procedures AMB Joint Injection/Aspiration Joint Injection/Aspiration Details: bilat knee euflexxa Primary Site: right knee Secondary Site: left knee Prep: site was prepped using aseptic technique, ethochloride spray was applied and injection warnings given Injected: in the joint Approach Used: anterolateral Procedure: The patient tolerated the procedure well Coding 92525 - Glenohumeral/Tronchanteric Bursa/Intraarticular Procedure code (CPT) selection complete Assessment & Plan Assessment & Plan (1) Patellofemoral pain syndrome of right knee: Code(s): M22.2X1 - Patellofemoral disorders, right knee Category: Medical (2) Patellofemoral pain syndrome of left knee: Code(s): M22.2X2 - Patellofemoral disorders, left knee Category: Medical Plan Plan was to proceed with gel injection today. Bilat knee euflexxa Injection performed today which the patient tolerated well. he will rest ice and use anti-inflammatories as needed for the next several days. I will see her back in 1 week for injection number 3 I also encouraged him to work with physical therapy to work on strengthening and conditioning exercises which the patient declined. He was then fit for bilateral Genumed knee braces in the office today. Coding Level of Care Code Procedure Only Diagnoses Patellofemoral pain syndrome of right knee M22.2X1 Patellofemoral pain syndrome of left knee M22.2X2 CPT Codes Coding - Joint 7: 70621 - Glenohumeral/Tronchanteric Bursa/Intraarticular ([id number])
--- OUTSIDE RECORDS SUMMARY | 2024-10-22 12:19 | XMS_ITS | Clinical Summary ---
Author Organization [address] [facility] Address [address] [place] [address] Phone Care Team Providers Care Internal Audit Consultant Name Role Phone Jules Escalona Primary Care [...] patient's age to complete this topic Insurance [facility] MEDICAID [place] [id number] Care Teams Internal Audit Consultant Relationship Specialty Start Date End Date Jules Escalona [address] [place] [address] PCP - General 01/02/24
== END 2024-10-22 12:56 | disposition home or self-care (01) ==
LOC: HO.HOS 10:33
PROVIDERS: PCP Internal Medicine; Visit Provider Physician Assistant
DX: M22.2X1 Patellofemoral disorders, right knee (principal); M22.2X2 Patellofemoral disorders, left knee
CPT/HCPCS: 20610

== ENCOUNTER → 2024-10-22 10:33 | Outpatient (BNVA) | payer OTHER, SELFPAY | PROVIDERS: PCP Internal Medicine; Visit Provider Physician Assistant | DX: M22.2X1 Patellofemoral disorders, right knee (principal); M22.2X2 Patellofemoral disorders, left knee; M17.0 Bilateral primary osteoarthritis of knee | CPT/HCPCS: 20610; J7323 ==

== ENCOUNTER 2024-10-29 10:53 | Outpatient (AMB) | payer OTHER, SELFPAY ==
--- NOTE | 2024-10-29 11:00 | A.OFFVIS_ITS ---
Vital Signs 10/29/24 11:01 Height 5 ft 4 in Weight 174 lb BMI 29.9 Intake Visit Reasons: Inj- B/L knee Euflexxa inj #3 Intake Note: ePdrito is a 64 year old male who presents today for his bilateral knee Euflexxa #3 injections. Allergies phenytoin (From DILANTIN) Allergy (Intermediate, Verified 10/29/24 11:01) NAUSEA buprenorphine (Belbuca) Allergy (Unknown, Verified 10/29/24 11:01) nausea tramadol (TRAMADOL) Allergy (Unknown, Verified 10/29/24 11:01) UNABLE TO SLEEP , AGITATION, restless leg syndrome diphenhydramine Allergy (Verified 10/29/24 11:01) RLS, shaky,agitation benafdryl Allergy (Uncoded 10/29/24 11:01) Unknown HPI HPI Inj- B/L knee Euflexxa inj #3: Details: 64-year-old gentleman returns to the office today #3. Injection bilateral knee Euflexxa. The patient is complaining of increased discomfort and instability in both knees. 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 Right knee tenderness along the lateral joint line which extends posteriorly. Has pain in the right knee with a varus stress testing. Full range of motion bilaterally. No ligamentous laxity. Office Procedures AMB Joint Injection/Aspiration Joint Injection/Aspiration Details: euflexxa Primary Site: right knee Secondary Site: left knee Prep: site was prepped using aseptic technique, ethochloride spray was applied and injection warnings given Injected: in the joint Approach Used: anterolateral Procedure: The patient tolerated the procedure well Coding 29388 - Glenohumeral/Tronchanteric Bursa/Intraarticular Procedure code (CPT) selection complete Assessment & Plan Assessment & Plan (1) Patellofemoral pain syndrome of right knee: Code(s): M22.2X1 - Patellofemoral disorders, right knee Category: Medical (2) Patellofemoral pain syndrome of left knee: Code(s): M22.2X2 - Patellofemoral disorders, left knee Category: Medical Plan Plan was to proceed with gel injection today. Bilat knee euflexxa Injection performed today which the patient tolerated well. he will rest ice and use anti-inflammatories as needed for the next several days. He was given a prescription for Celebrex and he will also be referred to pain management to further evaluate his low back pain. I also encouraged him to work with physical therapy to work on strengthening and conditioning exercises which the patient declined. Medications: New celecoxib (Celebrex) 200 mg PO BID 60 caps 3RF 30 days Coding Level of Care Code Procedure Only Diagnoses Patellofemoral pain syndrome of right knee M22.2X1 Patellofemoral pain syndrome of left knee M22.2X2 CPT Codes Coding - Joint 7: 52520 - Glenohumeral/Tronchanteric Bursa/Intraarticular ([id number])
[2024-10-29 11:01] VITALS: BMI 29.9
--- OUTSIDE RECORDS SUMMARY | 2024-10-29 12:27 | XMS_ITS | Clinical Summary ---
Author Organization [address] [facility] Address [address] [place] [address] Phone Care Team Providers Care Internet Consultant Name Role Phone Jules Escalona Primary [...] patient's age to complete this topic Insurance [facility] MEDICAID [place] [id number] Care Teams Internet Consultant Relationship Specialty Start Date End Date Jules Escalona [address] [place] [address] PCP - General 01/02/24
== END 2024-10-29 13:29 | disposition home or self-care (01) ==
LOC: HO.HOS 10:54
PROVIDERS: PCP Internal Medicine; Visit Provider Physician Assistant
DX: M22.2X1 Patellofemoral disorders, right knee (principal); M22.2X2 Patellofemoral disorders, left knee
CPT/HCPCS: 20610

== ENCOUNTER → 2024-10-29 10:53 | Outpatient (BNVA) | payer OTHER, SELFPAY | PROVIDERS: PCP Internal Medicine; Visit Provider Physician Assistant | DX: M22.2X1 Patellofemoral disorders, right knee (principal); M22.2X2 Patellofemoral disorders, left knee; M17.0 Bilateral primary osteoarthritis of knee | CPT/HCPCS: 20610; J7323 ==

== ENCOUNTER 2024-11-20 10:22 | Outpatient (AMB) | payer OTHER, SELFPAY ==
--- NOTE | 2024-11-20 10:25 | A.OFFVIS_ITS ---
Vital Signs 11/20/24 10:26 Height 5 ft 4 in Weight 175 lb BMI 30.0 BP 135/96 H Blood Pressure Location Lt brachial Position Sitting Respiration 15 Pulse 84 Pulse Source Pulse Oximeter Pulse Oximetry (%) 97 Oxygen Delivery Method Room Air Intake Visit Reasons: Low back pain Offset Press Operator Apprentice Required: No Allergies phenytoin (From DILANTIN) Allergy (Intermediate, Verified 11/20/24 10:28) NAUSEA buprenorphine (Belbuca) Allergy (Unknown, Verified 11/20/24 10:28) nausea tramadol (TRAMADOL) Allergy (Unknown, Verified 11/20/24 10:28) UNABLE TO SLEEP , AGITATION, restless leg syndrome diphenhydramine Allergy (Verified 11/20/24 10:28) RLS, shaky,agitation benafdryl Allergy (Uncoded 11/20/24 10:28) Unknown Medication List - Last Reconciled 11/20/24 by Lizet Yee LPN atorvastatin 40 mg PO DAILY baclofen 10 mg PO TID celecoxib (Celebrex) 200 mg PO BID 30 days cetirizine 10 mg PO QAM cyclobenzaprine 10 mg PO TID PRN dicyclomine 1 tab PO TID duloxetine 60 mg PO DAILY fluoxetine 1 cap PO QAM fluticasone propionate 50 mcg/actuation 1 spray intranasal DAILY gabapentin 1 tab PO TID omeprazole 40 mg PO DAILY ondansetron 8 mg PO TID simethicone (Gas Relief (simethicone)) 180 mg PO DAILY trazodone 1 tab PO BEDTIME HPI HPI Low back pain: Details: History of Present Illness The patient is a 64-year-old male presenting with low back pain. The pain is primarily located on the right side and has been persistent despite previous interventions, including spinal cord stimulation, which was removed due to ineffectiveness. The patient has also undergone knee injections, which have not significantly alleviated the pain. The patient reports increased pain on the right side following a previous intervention. A sacroiliac joint injection was planned but was denied by insurance, and an appeal will be pursued. Pain Description - Onset: Persistent pain primarily on the right side, but also on the left - Quality: Persistent despite interventions - Location: Bilateral low back - Exacerbating factors: Previous interventions - Relieving factors: None noted Physical Exam - Musculoskeletal: Positive SI joint compression, CRISTINA, and thrust tests bilaterally [facility] Medical History Tubular adenoma of colon Colon cancer screening Chronic abdominal pain Anxiety Hyperlipidemia Chronic back pain Chronic pain Surgical History History of colonoscopy with polypectomy (~11/29/23) History of colonoscopy History of back surgery H/O colonoscopy Hx of abdominal surgery Social History Are you a primary rn wound care to a significant other at home: No Do you presently have visiting nurse or other home services: Yes (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) Alcohol intake: never Comment: trying to sleep Patient Tobacco Use Status: Former Tobacco user Tobacco use type: Cigarette Second Hand Smoke Exposure: No service: No Current occupational status: unemployed and disabled Current occupation: Right handed Physical Exam Vital Signs: Last Vital Signs Pulse 84 11/20/24 10:26 Resp 15 11/20/24 10:26 BP 135/96 H 11/20/24 10:26 Pulse Ox 97 11/20/24 10:26 Oxygen Delivery Method Room Air 11/20/24 10:26 BMI result Body Mass Index 30.0 Assessment & Plan Assessment & Plan (1) Sacroiliac joint pain: Code(s): M53.3 - Sacrococcygeal disorders, not elsewhere classified Category: Medical Plan Plan - Plan to appeal insurance denial for sacroiliac joint injection and proceed with bilateral diagnostic SI joint injections upon approval. Patient was informed and verbally consented to the use of an ambient scribe for clinic note documentation during this visit. Discussion Notes We discussed the plan to appeal the insurance denial for the sacroiliac joint injection and proceed with bilateral diagnostic SI joint injections upon approval. I will contact the patient once we have a response from the insurance company. Patient Instructions - Await contact regarding the appeal outcome for the sacroiliac joint injection. Coding Level of Care Code Procedure Only Diagnoses Sacroiliac joint pain M53.3
[2024-11-20 10:26] VITALS: BP 135/96; PULSE 84; RESP 15; O2SAT 97
== END 2024-11-20 10:41 | disposition home or self-care (01) ==
LOC: HO.PMC 10:23
PROVIDERS: PCP Internal Medicine; Referring Provider Physician Assistant; Visit Provider Internal Medicine
DX: M53.3 Sacrococcygeal disorders, not elsewhere classified (principal)
CPT/HCPCS: 99213

== ENCOUNTER → 2024-11-20 10:22 | Outpatient (BNVA) | payer OTHER, SELFPAY | PROVIDERS: PCP Internal Medicine; Referring Provider Physician Assistant; Visit Provider Internal Medicine | DX: M53.3 Sacrococcygeal disorders, not elsewhere classified (principal) | CPT/HCPCS: 99212 ==

== ENCOUNTER 2024-12-17 08:52 | Outpatient (AMB) | payer OTHER, SELFPAY ==
--- NOTE | 2024-12-17 08:55 | MHC.OFFVIS ---
Vital Signs 12/17/24 09:04 Height 5 ft 4 in Weight 180 lb BMI 30.9 BP 130/80 Blood Pressure Location Rt brachial Position Sitting Pulse 84 Intake Visit Reasons: 1 year follow up colonoscopy Intake Note: Patient here for 1yr follow up Colonoscopy. Patient c/o: constipation. Taking Miralax, mild improvement. Colonoscopy (Dr. Franklin): 11-29-2023 Fishing Tool Operator Required: No Fishing Tool Operator Services: Fishing Tool Operator Offered & Declined Accompanied by: keenan Elliott Allergies phenytoin (From DILANTIN) Allergy (Intermediate, Verified 12/17/24 09:00) NAUSEA buprenorphine (Belbuca) Allergy (Unknown, Verified 12/17/24 09:00) nausea tramadol (TRAMADOL) Allergy (Unknown, Verified 12/17/24 09:00) UNABLE TO SLEEP , AGITATION, restless leg syndrome diphenhydramine Allergy (Verified 12/17/24 09:00) RLS, shaky,agitation benafdryl Allergy (Uncoded 12/17/24 09:00) Unknown HPI HPI 1 year follow up colonoscopy: Details: 64-year-old male here for history of a cecal polyp. He had a colonoscopy last year showing a flat polyp in the cecum. This was about 1 cm in diameter. This was removed with multiple bites of the cold forceps The path report showed a tubular adenoma without dysplasia In view of the flat nature of the polyp, I had recommended repeating colonoscopy in 1 year to ensure complete removal. He currently denies any significant complaints. He does admit to periodic lower abdominal pain but he says that this is not new to him. He has good oral intake. 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) Alcohol intake: never Comment: trying to sleep Patient Tobacco Use Status: Former Tobacco user Tobacco use type: Cigarette Second Hand Smoke Exposure: No service: No Current occupational status: unemployed and disabled Current occupation: Right handed Review of Systems Const Denies chills and Denies fever(s) Card Denies chest pain, Denies dyspnea and Denies dyspnea on exertion Resp Denies cough, Denies dyspnea and Denies dyspnea on exertion GI Denies hematochezia and Denies change in bowel habits Denies hematuria and Denies difficulty urinating Musc Denies back pain and Denies limited range of motion Neuro Denies focal weakness and Denies convulsions Psych Denies depression and Denies mood swings Physical Exam Vital Signs: Last Vital Signs Pulse 84 12/17/24 09:04 BP 130/80 12/17/24 09:04 BMI result Body Mass Index 30.9 Const General: comfortable and no acute distress Orientation/consciousness: patient oriented x3 Neck Neck: Yes no lymphadenopathy Resp Auscultation: clear to auscultation bilaterally Cardio Rhythm: regular rhythm GI Palpation (GI): Soft to palpation, nontender and no guarding Neuro General: patient oriented x3 Assessment & Plan Assessment & Plan (1) History of adenomatous polyp of colon: Code(s): Z86.0101 - Personal history of adenomatous and serrated colon polyps Category: Medical Plan: He has had a history of a flat cecal polyp and had a colonoscopy twice last year for this I have recommended repeating the colonoscopy after 1 year to ensure complete removal. I reviewed with him the technique of colonoscopy. I explained the risks including but not limited to bleeding, and perforation, as well as the benefits and alternatives. He understands and wants to proceed. . Medications: New sodium,potassium,mag sulfates 17.5-3.13-1.6 gram (Suprep Bowel Prep Kit) DILUTE; drink full amount early evening before AND next morning at least 2 hr before procedure; follow w 960 mL water PO 354 mL 0RF Coding Level of Care Code Est Pt Level 3 (90767) Diagnoses History of adenomatous polyp of colon Z86.0101
[2024-12-17 09:04] VITALS: BP 130/80; PULSE 84; BMI 30.9
== END 2024-12-17 09:14 | disposition home or self-care (01) ==
LOC: HO.HGS 08:53
PROVIDERS: Visit Provider Surgery
DX: Z86.0101 Personal history of adenomatous and serrated colon polyps (principal)
CPT/HCPCS: 99213

== ENCOUNTER → 2024-12-17 08:52 | Outpatient (BNVA) | payer OTHER, SELFPAY | PROVIDERS: Visit Provider Surgery | DX: Z01.818 Encounter for other preprocedural examination (principal); Z86.0100 Personal history of colon polyps, unspecified | CPT/HCPCS: 99212 ==

== ENCOUNTER 2025-01-14 06:32 | Outpatient (REF) | payer OTHER, SELFPAY ==
--- NOTE | ~2025-01-14 | FL_ITS ---
EXAMINATION: XR FLUOROSCOPY WITH IMAGES CLINICAL INFORMATION: SI joint pain management procedure. COMPARISON: None available. TECHNIQUE: Fluoroscopy provided to: Dr. Davison Fluoroscopy time: 0.2 minutes DAP: 0.0242 mGycm2 Images: 3 FINDINGS: 3 fluoroscopic spot images obtained during bilateral SI joint injection. Please refer to the full operative report for details. FL/FL guidance in treatment room IMPRESSION: Fluoroscopic guidance. Electronically signed by: Vinny Treadwell MD 01/14/2025 02:30 PM EDT
--- OUTSIDE RECORDS SUMMARY | 2025-01-14 06:35 | XMS_ITS | Clinical Summary ---
Author Organization [address] [facility] Address [address] [place] [address] Phone Care Team Providers Care Loom Operator Apprentice Name Role Phone Jules Escalona Primary Care [...] - Risk 60-74 years 1-dose series) 2020 Colorectal Cancer Screening: Colonoscopy 02/14/2024 HIV Screening 02/14/2024 Social Influencers of Health Screening 02/14/2024 Depression Screening 05/13/2024 COVID-19 Vaccine (3 - 2024- season) 2025 05/03/2021, 10/04/2020 Influenza Vaccine (#1) 2025 , 06/21/2023, 08/03/2022, Additional history exists DTaP,Tdap,and Td Vaccines (3 - Td or Tdap) 04/02/2027 04/02/2017, 11/19/2016 Cholesterol Screening (Lipid Panel) 06/21/2028 06/21/2023 Hepatitis C Screening Completed 07/30/2022 Zoster Vaccines Completed 08/16/2023, 06/21/2023 HIB Vaccines Aged Out No longer eligi [...] patient's age to complete this topic [place] [address] [address] [place] [address] MEDICAID [id number] Care Teams Loom Operator Apprentice Relationship Specialty Start Date End Date Jules Escalona [address] [place], [place] PCP - General 01/02/24
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
--- OUTSIDE RECORDS SUMMARY | 2025-01-14 06:36 | XMS_ITS | Encounter Summary ---
Author Organization [employer] Address [address] [facility] [address] [place] [address] Care Team Providers Care Data Processing Specialist Name Role Phone Jules Escalona MD Primary Care Prov ider Reason for Visit * Reason Comments Med Refill Encounter Details Date Type Department Care Team ([facility] Contact Info) Description 10/15/2023 Refill [facility] [address] [place] [address] Jules Escalona MD [address] [place] [address] Delayed gastric emptying Social History Tobacco Use [...] documented as of this encounter Care Teams Data Processing Specialist Relationship Specialty Start Date End Date Jules Escalona MD [address] [place] [phone] PCP - General Internal Medicine 09/07/19 documented as of this encounter
--- OUTSIDE RECORDS SUMMARY | 2025-01-14 06:36 | XMS_ITS | Encounter Summary ---
Author Organization [facility] Address [address] [facility] [address] [place] [address] Care Team Providers Care Junior Copywriter Name Role Phone Jules Escalona MD Primary Care Prov ider Encounter Details Date Type Department Care Team ([facility] Contact Info) Description 08/10/2022 Orders Only [facility] [address] [place] [address] Jules Escalona MD [address] [place] [address] Social History Tobacco Use Types Packs/Day Years [...] documented as of this encounter Care Teams Junior Copywriter Relationship Specialty Start Date End Date Jules Escalona MD [address] [place] [id number] PCP - General Internal Medicine 09/07/19 documented as of this encounter
--- OUTSIDE RECORDS SUMMARY | 2025-01-14 06:36 | XMS_ITS | Encounter Summary ---
Author Organization [employer] Address [address] [facility] [address] [place] [address] Care Team Providers Care Precision Devices Inspector/Tester Name Role Phone Jules Escalona MD Primary Care Prov ider Reason for Visit * Reason Comments Med Refill Encounter Details Date Type Department Care Team ([facility] Contact Info) Description 06/23/2023 Refill [facility] [address] [place] [address] Margie Martínez MD [address] [place] [address] Irritable bowel syndrome with both constipation and [...] documented as of this encounter Care Teams Precision Devices Inspector/Tester Relationship Specialty Start Date End Date Jules Escalona MD [address] [place] [id number] PCP - General Internal Medicine 09/07/19 documented as of this encounter
--- OUTSIDE RECORDS SUMMARY | 2025-01-14 06:36 | XMS_ITS | Clinical Summary ---
Author Organization [employer] Address [address] [facility] 7t [place] [address] Care Team Providers Care Cerner Analyst Name Role Phone Jules Escalona MD Primary [...] complete record from that organization. Blood Pressure kitIndications:Mix ed hyperlipidemia 1 kit in the morning. 1 kit 3 Active omeprazole (PriLOSEC) [address] capsule 1 Active Nutritional Supplements (Ensure High Protein) liquid Take 1 can or bottle up to three times a day as needed. 1 Active naloxone (Narcan) 4 mg/0.1 mL nasal spray [place] 0.1 mL into one nostril. Repeat with second device into other nostril after 3 min if no or minimal response. 1 Active mirtazapine (Remeron) 7.5 MG tablet 2 Active lidocaine (LMX) 4 % cream apply pea sized amount to affected area up to three times daily 2 Active cyclobenzaprine (Flexeril) 10 MG tablet Take 1 tablet by mouth 2 times daily. 2 Active cholestyramine (Questran) 4 g packet MIX AND DRINK 1 PACKET BY MOUTH TWICE DAILY WITH MEALS 3 Active amitriptyline (Elavil) 50 MG tablet Active Diclofenac Sodium 1 % gelIndications:Rad icular pain APPLY 2 GRAMS TO THE AFFECTED AREA(S) BY TOPICAL ROUTE 4 TIMES PER DAY 100 g 3 3 Active famotidine (Pepcid) 40 MG tabletIndications: Delayed gastric emptying TAKE 1 TABLET(40 MG) BY MOUTH IN THE MORNING 30 tablet 3 4 Active acetaminophen (Tylenol) 500 MG tabletIndications: History of tooth extraction, unspecified edentulism class Take 1 tablet (500 mg) by mouth every 6 (six) hours if needed for mild pain for up to 20 doses. 20 tablet 4 Active cetirizine (ZyrTEC) 10 MG tabletIndications: Seasonal allergies TAKE 1 TABLET BY MOUTH IN THE MORNING 90 tablet 3 4 Active traZODone (Desyrel) 150 MG tabletIndications: Primary insomnia Take 1 tablet (150 mg) by mouth at bedtime. 90 tablet 4 Active polyethylene glycol, PEG, 3350 (Glycolax) 17 GM/SCOOP powder TAKE 17 GM BY MOUTH EVERY DAY 4 Active baclofen (Lioresal) 20 MG tabletIndications: Neck pain on right side,Pain of right hip,Right leg pain Take 1 tablet (20 mg) by mouth 2 times daily. 20 tablet 4 Active fluticasone (Flonase) 50 MCG/ACT nasal sprayIndications:S easonal allergies Administer 1 spray into each nostril Once per day. Shake gently. Before first use, prime pump. After use, clean tip and replace cap. 16 g 11 5 026 Active atorvastatin (Lipitor) 40 MG tabletIndications: Mixed hyperlipidemia TAKE 1 TABLET(40 MG) BY MOUTH IN THE MORNING 90 tablet 3 5 Active dicyclomine (Bentyl) 20 MG tabletIndications: Irritable bowel syndrome with both constipation and diarrhea TAKE 1 TABLET BY MOUTH THREE TIMES DAILY WITH BREAKFAST, LUNCH AND EVENING MEAL 90 tablet 2 5 Active FLUoxetine (PROzac) 40 MG capsuleIndications :Recurrent major depressive disorder, in partial remission (CMS/HCC) Take 1 capsule (40 mg) by mouth Once per day. 30 capsule 3 5 Active gabapentin (Neurontin) 800 MG tablet TAKE 1 TABLET BY MOUTH THREE TIMES DAILY 90 tablet 1 5 Active Active Problems Problem Noted Date Diagnosed Date Diabetic mononeuropathy simplex 10/15/2024 Bloating 10/15/2024 Assessment & Plan (10/15/2024 9:15 AM EDT): Seen by Gi, will order h pylori test, oriented to keep small amount of meals lifestyle modifications discussed, will call with results Tubular adenoma of colon 04/01/2024 Patellofemoral pain [...] without diagnosis of hypertension Assessment & Plan (09/16/2024 10:13 AM EDT): Has remained stable, continue daily monitoring, keep low sodium diet and exercise as tolerated, target <140/90. Assessment & Plan (06/19/2023 7:50 AM EST): [...] bp, target <140/90 >90/60, follow up with photoresist printer as scheduled Assessment & Plan (11/07/2022 9:44 [...] (06/18/2023): Added automatically from request for surgery [id number] Last Assessment & Plan: Continued sporadic epigastric [...] (06/18/2023): Added automatically from request for surgery [id number] Delayed gastric emptying 08/09/2020 Overview (01/18/2023): Added automatically from request for surgery [id number] Esophageal dysphagia 06/06/2020 06/18/2023 Overview (06/18/2023): Last [...] Encounters Date Type Department Care Team Description 01/11/2025 Refill [facility] [address] [place] [address] Jules Escalona MD Recurrent major depressive disorder, in partial remission (CMS/HCC) 01/07/[address] [facility] [address] [place] [address] Jules Escalona MD No Show 01/07/[address] [facility] [address] [place] [address] Jules Escalona MD 01/07/2025 Travel 01/06/[address] [facility] [address] [place] [address] Jules Escalona MD chart prep 01/06/2025 Telephone [facility] [address] [place] [address] Jules Escalona MD Nurse Triage 11/24/2024 Refill [facility] [address] [place] [address] Jules Escalona MD 11/12/2024 Refill [facility] [address] [place] [address] Jules Escalona MD 10/19/2024 Refill [facility] [address] [place] [address] Jules Escalona MD Recurrent major depressive disorder, in partial remission (CMS/HCC) 10/15/2024 8:45 AM EDT Telemedicine [facility] [address] [place] [address] Jules Escalona MD Bloating (Primary Dx); Diabetic mononeuropathy simplex ([facility]); Dietary counseling; Exercise counseling; Continuous opioid dependence ([facility]); Recurrent moderate major depressive disorder with anxiety ([facility]) 10/15/2024 Travel from Last 3 Months Immunizations Immunization Administration Dates Next Due Influenza Injectable Quadriv [...] Answer Date Recorded Patient Health Questionnaire-9 Score 0 09/15/2024 Patient Health Questionnaire-9 Score 0 09/15/2024 Last PHQ-9: Questionnaire Data Not on file 0 09/15/2024 Housing Stability Answer Date Recorded What is your housing situation today? I have vicki gutierrez 09/15/[address] you li ve. Do you have problems with any of the following? None of the above 09/15/2024 Food Insecurity Answer Date Recorded Within the past 12 months, y ou worried that your food would run out before you got money to buy more: Never True 09/15/2024 Within the past 12 months,th e food you bought just didn't last and you didn't have enough money to get more: Never True 10/2024 Transportation Answer Date Recorded In the past 12 months, has l ack of transportation kept you from medical appts, meetings, work or from getting things needed for daily living? No 09/15/2024 Utilities Answer Date Recorded In the past 12 months, has t he electric, gas, oil or water company threatened to shut off services in your home? No 09/15/2024 Depression Answer Date Recorded Patient Health Questionnaire-2 Score 0 09/15/2024 Internet Access Answer Date Recorded Internet Access Q1 Yes 09/15/2024 Internet Access Q2 Not on file 09/15/2024 Sex and Gender Information Value Date Recorded Sex Assigned at Male 03/12/2022 10:20 AM EDT Legal Sex Male 10:20 AM EDT Gender Identity Male 03/12/2022 10:20 AM EDT Sexual Orientation Straight 03/12/2022 10 :20 AM EDT Last Filed Vital Signs Vital Sign Reading Time Taken Comments Blood Pressure 121/74 09/15/2024 9:05 AM EDT Pulse 63 09/15/2024 9:05 AM EDT Temperature 36.8 C (98.2 F) 04/02/2024 11:00 AM EST Respiratory Rate 20 04/02/2024 11:00 AM EST [...] 1960 FIT 1960 FOBT 1960 Sigmoidoscopy 1960 Disability Screening 1960 Diabetes: Foot Exam 1970 Eye Exam 1970 Diabetes: Urine Protein Screening 08/19/1979 Pneumococcal Vaccine: 50+ Years (2 of 2 - PCV) 03/08/2017 03/08/2016 RSV Patients and Patients Aged 60 years or older (1 - Risk 60-74 years 1-dose series) 2020 Dental Prophylaxis 04/29/2024 10/28/2023, 1 05/18/2022, 08/30/2022 Dental X-Ray: Bitewings 11/12/2024 11/12/2023, 10/27 Diabetes: Hemoglobin A1C 12/13/2024 025, 06/21/2023, 07/30/2022 COVID-19 Vaccine ( season) 2025 05/03/2021, 10/04/2020 Influenza Vaccine (#1) 2025 , 06/21/2023, 08/03/2022, Additional history exists Tobacco Screening 03/16/2025 03/16/2024 Lipid Panel 03/25/2025 03/25/2024, 01/2024, 07/30/2022, Additional history exists Alcohol/Substance Use Screening 09/15/2025 09/15/2024 Depression Screening 09/15/2025 09/15/2024, 09/16/19 SDOH Screening 09/15/2025 09/15/2024 Dental X-Ray: Full Mouth 10/23/2025 10/22/2022 DTaP/Tdap/Td Vaccines (3 - Td or Tdap) 04/02/2027 04/02/2017, 11/19/2016 Colonoscopy 07/05/2028 07/05/2023, 08/04/2013 Colorectal Cancer Screening 07/05/2028 HIV Screening Completed 07/30/2022 Hepatitis C Screening [...] A1C Routine 06/15/2024 2:52 PM EST Prediabetes LIPID PANEL, STANDARD Routine 03/25/2024 8:33 AM [...] PM EST) Hemoglobin A1c 6.1(H) <6.0 % [facility] Comment:Hemoglobin A1C Refer ence Range Adults: 4.8 - 6.0 % Non diabetic: < 6.0 % Goal: < 7.0 %Additional Action Suggested: > 8.0 %Note: Hemoglobin A1c results are invalid for patients with abnormal amounts of HbF. Blood transfusions may impact the HbA1c concentration in the patient sample. Estimated Average Glucose 128 mg/dL [facility] Comment:eAG = Estimated ave rage glucose which is %A1C expressed asaverage glucose, using the formula of the [id number]-[id number] Glucose study (ADAG), Diabetes Care, Vol.31,#8,Dec. 2007 Blood Venous blood specimen / Unknown 06/15/2024 2:52 PM EST 06/15/2024 5:39 PM EST us Jules Lopez MD LAB BLOOD ORDERABL ES Final Result Performing Organization Address [facility] Co de Phone Number [facility] [address] [place] [phone] * (ABNORMAL) Lipid Panel, Standard (03/25/2024 8:33 AM EST) Triglycerides 233(H) <150 mg/dL [facility] Comment:Slight Lipemia.Claudette able Triglyceride: less than 150 mg/dLBorderline High Triglyceride 150-199 mg/dLHigh Triglyceride: 200-499 mg/dLVery High Triglyceride: greater than or equal to 5OO mg/dL Cholesterol 180 <200 mg/dL [facility] Comment:Desirable Cholestero l: less than 200 mg/dLBorderline High Cholesterol: 200-239 mg/dLHigh Cholesterol: greater than 239 mg/dL LDL Cholesterol Calculated 82 <100 mg/dL [facility] Comment:Desirable LDL: less than 100 mg/dLNear Optimal/Above Optimal LDL: 110- 129 mg/dLBorderline High LDL: 130-159 mg/dLHigh LDL: 160-189 mg/dLVery High LDL: greater than or equal to 190 mg/dL HDL Cholesterol 52 >40 mg/dL [facility] Comment:Desirable HDL: great er than 40 mg/dL Note: This HDL assay may give artificially low results in patients with liver disease. Blood Venous blood specimen / Unknown 03/25/2024 8:33 AM EST 03/25/2024 2:19 PM EST Jules Lopez MD LAB BLOOD ORDERABL ES Final Result Performing Organization Address City/[facility]/ZIP Co de Phone Number [facility] [address] [place] [phone] * Hm Colonoscopy (07/05/2023 8:17 AM EST) Fredy Provider HEALTH MAINTENANCE Final Result * HIV-1 RNA, Quantitative, Real-Time PCR with Reflex to Genotype (RTI, PI, Integrase) (07/30/2022 9:03 AM EDT) HIV 1 RNA, QN PCR NOT DETECTED copies/mL [facility], HIV 1 RNA, QN PCR NOT DETECTED Log copies/mL [facility], Comment: REFERENCE RANGE: NOT DETECTED copies/mL NOT DETECTED Log copies/mL This test was performed using Real-Time Polymerase Chain Reaction. Reportable range is 20 to 10,000,000 copies/mL (1.30-7.00 Log copies/mL). 07/30/2022 9:03 AM EDT 07/30/2022 9:03 AM EDT Narrative [facility] - 08/02/2022 7:14 PM EDT FASTING:YES FASTING: YES Jules Lopez MD LAB BLOOD ORDERABL ES Final Result [facility] [address], [place] [address] [facility], [address] [place] [address] * Hepatitis C Antibody with Reflex to HCV, RNA, Quantitative, Real-Time PCR (07/30/2022 9:03 AM EDT) Pathologist [facility] Hepatitis C Antibody NON-REACT KELLY NON-REACT KELLY [facility] [place] [facility] Index 0.05 <1.00 [facility] Comment: HCV antibody was non-reactive. There is no laboratory evidence of HCV infection. In most cases, no further action is required. However, if recent HCV exposure is suspected, a test for HCV RNA (test code 03349) is suggested. For additional information please refer to http://education.COMS Interactive/faq/BIC70x6 (This link is being provided for informational/ educational purposes only.) Blood Venous blood specimen / Unknown 07/30/2022 9:03 AM EDT 07/30/2022 9:03 AM EDT Narrative [facility] - 08/02/2022 7:14 PM EDT FASTING:YES FASTING: YES us Jules Lopez MD LAB BLOOD ORDERABL ES Final Result [facility] [address] [facility], [facility], [place] [address] [facility] [address] [place] [address] from Last 3 Months or Most Recently Relevant to Health Maintenance Insurance FOR[facility]LY [facility] D[facility] Care Teams Cerner Analyst Relationship Specialty Start Date End Date CarcamoJules Huff MD [address] [place] [address] DINORAH Travis [address] PCP - General Internal Medicine 09/07/19
--- OUTSIDE RECORDS SUMMARY | 2025-01-14 06:36 | XMS_ITS | Encounter Summary ---
Author Organization [employer] Address [address] [place] [address] [address] [place] [address] Care Team Providers Care Tire Builder Heavy Service Name Role Phone Jules Escalona MD Primary Care Prov ider Reason for Visit * Reason Onset Date Comments Nurse Triage 11/06/2022 Encounter Details Date Type Department Care Team ([facility] Contact Info) Description 11/06/2022 Telephone [facility] [address] [place] [address] Jules Escalona MD [address] [place] [address] Nurse Triage Social History Tobacco Use Types [...] 4:04 PM EDT Triage call with pacific Farm Operations Manager ID [id number] Pt reports blood pressure is up and [...] Getting worse The caller accepted this outcome (Luxembourger speaker) documented in this encounter Plan of Treatment Not on file documented as of this encounter Visit Diagnoses Not on filedocumented in this encounter Additional Health Concerns Assessment Noted Time PHQ-9 Depression Total Score: 5 07/31/19 23 8:54 AM EDT documented as of this encounter Care Teams Tire Builder Heavy Service Relationship Specialty Start Date End Date Jules Escalona MD [address] [place] [address] PCP - General Internal Medicine 09/07/19 documented as of this encounter
--- OUTSIDE RECORDS SUMMARY | 2025-01-14 06:36 | XMS_ITS | Encounter Summary ---
Author Organization [employer] Address [address] [place] [address] 7 [place] [address] Care Team Providers Care Nutritionist Public Health Name Role Phone Jules Escalona MD Primary Care Prov ider Encounter Details Date Type Department Care Team (Latest Contact Info) Description 04/15/2020 Abstract [facility] CONVERSIONS Dental, Provider, DDS Social History [...] on filedocumented in this encounter Care Teams Nutritionist Public Health Relationship Specialty Start Date End Date Jules Escalona MD [address] [facility] [place] [address] PCP - General Internal Medicine 09/07/19 documented as of this encounter
--- OUTSIDE RECORDS SUMMARY | 2025-01-14 06:36 | XMS_ITS | Encounter Summary ---
Author Organization [employer] Address [address] [facility] 7t [place] [address] Care Team Providers Care Causticiser Name Role Phone Jules Escalona MD Primary Care Prov ider Reason for Visit * Reason Onset Date Comments left small partial in office 01/31/2023 Encounter Details Date Type Department Care Team ([facility] st Contact Info) Description 01/31/2023 Telephone [facility] ADULT DENTAL [address] [place] [address] Aston Espinoza DDS [address] [place] [address] left small partial in office Social History [...] documented as of this encounter Care Teams Causticiser Relationship Specialty Start Date End Date Jules Escalona MD [address] [place] [phone] PCP - General Internal Medicine 09/07/19 documented as of this encounter
--- OUTSIDE RECORDS SUMMARY | 2025-01-14 06:36 | XMS_ITS | Encounter Summary ---
Author Organization [employer] Address [address] [facility] [address] [place] [address] Care Team Providers Care Foreign Language Interpreter Name Role Phone Jules Escalona MD Primary Care Prov ider Encounter Details Date Type Department Care Team ([facility] Contact Info) Description 08/29/2023 Orders Only [facility] [address] [place] [address] ProviderFredy MD Social History Tobacco Use Types [...] documented as of this encounter Care Teams Foreign Language Interpreter Relationship Specialty Start Date End Date CarcamoJules Huff MD [address] [place] [address] PCP - General Internal Medicine 09/07/19 documented as of this encounter
--- OUTSIDE RECORDS SUMMARY | 2025-01-14 06:36 | XMS_ITS | Encounter Summary ---
Author Organization [employer] Address [address] [place] [address] 7t [place] [address] Care Team Providers Care Rapid Outsole Stitcher Name Role Phone Jules Escalona MD Primary Care Prov ider Encounter Details Date Type Department Care Team (Latest Contact Info) Description 04/29/2019 Abstract [facility] CONVERSIONS Dental, Provider, DDS Social [...] on filedocumented in this encounter Care Teams Rapid Outsole Stitcher Relationship Specialty Start Date End Date Jules Escalona MD [address] [facility] [address] PCP - General Internal Medicine 09/07/19 documented as of this encounter
--- OUTSIDE RECORDS SUMMARY | 2025-01-14 06:36 | XMS_ITS | Encounter Summary ---
Author Organization [employer] Address [address] [facility] [address] [place] [address] Care Team Providers Care Finish Rolls Operator Name Role Phone Jules Escalona MD Primary Care Prov ider Encounter Details Date Type Department Care Team ([facility] Contact Info) Description 10/14/2023 Telephone [facility] ADULT DENTAL [address] [place] [address] Sherine Ramirez DMD Social History Tobacco Use [...] documented as of this encounter Care Teams Finish Rolls Operator Relationship Specialty Start Date End Date Jules Escalona MD [address] [place] [phone] PCP - General Internal Medicine 09/07/19 documented as of this encounter
--- OUTSIDE RECORDS SUMMARY | 2025-01-14 06:36 | XMS_ITS | Encounter Summary ---
Author Organization [employer] Address [address] [place] [address] 7t [place] [address] Care Team Providers Care Cylinder Die Machine Helper Name Role Phone Jules Escalona MD Primary Care Prov ider Encounter Details Date Type Department Care Team (Latest Contact Info) Description 01/23/2022 Abstract [facility] CONVERSIONS Dental, Provider, DDS Social History Tobacco [...] on filedocumented in this encounter Care Teams Cylinder Die Machine Helper Relationship Specialty Start Date End Date Jules Escalona MD [address] [facility] [place] [address] PCP - General Internal Medicine 09/07/19 documented as of this encounter
--- OUTSIDE RECORDS SUMMARY | 2025-01-14 06:37 | XMS_ITS | Encounter Summary ---
Author Organization [employer] Address [address] [facility] 7 [place] [address] Care Team Providers Care Solar Designer Name Role Phone Jules Escalona MD Primary Care Prov ider Reason for Visit * Reason Comments Med Refill Encounter Details Date Type Department Care Team ([facility] Contact Info) Description 06/05/2024 Refill [facility] [address] [place] [address] Jules Escalona MD [address] [place] [address] Seasonal allergies Social History Tobacco Use Types [...] documented as of this encounter Care Teams Solar Designer Relationship Specialty Start Date End Date Jules Escalona MD [address] [place] [address] PCP - General Internal Medicine 09/07/19 documented as of this encounter
--- OUTSIDE RECORDS SUMMARY | 2025-01-14 06:37 | XMS_ITS | Encounter Summary ---
Author Organization [employer] Address [address] [place] [address] 7[address] [place] [address] Care Team Providers Care Senior Project Architect Name Role Phone Jules Escalona MD Primary Care Prov ider Encounter Details Date Type Department Care Team (Latest Contact Info) Description 02/23/2021 Abstract [facility] CONVERSIONS Dental, Provider, DDS Social [...] on filedocumented in this encounter Care Teams Senior Project Architect Relationship Specialty Start Date End Date Jules Escalona MD [address] [facility] [place] [address] PCP - General Internal Medicine 09/07/19 documented as of this encounter
--- OUTSIDE RECORDS SUMMARY | 2025-01-14 06:37 | XMS_ITS | Encounter Summary ---
Author Organization [employer] Address [address] [facility] 7t [place] [address] Care Team Providers Care Manager Mental Health Name Role Phone Jules Escalona MD Primary Care Prov ider Reason for Visit * Reason Comments Med Refill Encounter Details Date Type Department Care Team ([facility] st Contact Info) Description 11/12/2024 Refill [facility] MED[facility] [address] [place] [address] Jules Escalona MD [address] [place], [place] [phone] Social History Tobacco Use Types Packs/Day Years [...] Assessment Noted Time PHQ-9 Depression Total Score: 0 09/16/19 25 8:47 AM EDT documented as of this encounter Care Teams Manager Mental Health Relationship Specialty Start Date End Date Jules Escalona MD [address] [place] [address] PCP - General Internal Medicine 09/07/19 documented as of this encounter
--- OUTSIDE RECORDS SUMMARY | 2025-01-14 06:38 | XMS_ITS | Encounter Summary ---
Author Organization [employer] Address [address] [facility] 7 [place] [address] Care Team Providers Care Consumer Marketing Specialist Name Role Phone Jules Escalona MD Primary Care Prov ider Reason for Visit * Reason Onset Date Comments Med Refill 10/07/2024 Encounter Details Date Type Department Care Team ([facility] Contact Info) Description 10/07/2024 Telephone [facility] MEDICINE [address] [place] [address] Jules Escalona MD [address] [facility] [address] [place], [place] [phone] Med Refill Social History Tobacco Use Types Packs/Day Years [...] encounter Miscellaneous Notes * Telephone Encounter - Calli Quinones LPN - 10/07/2024 2:02 PM EDT Medication is prescribed by [facility]. * Telephone Encounter - Paulino Fulton - 10/07/2024 1:45 PM EDT TC from pt requesting medication refill. Medications needing refill: ondansetron 8 mg To be sent to: [id number] [place], [place] - [address] [place] [address] AT [facility] documented in this encounter Plan of Treatment Not on file documented as of this encounter Visit Diagnoses Not on filedocumented in this encounter Additional Health Concerns Assessment Noted Time PHQ-9 Depression Total Score: 0 09/16/19 25 8:47 AM EDT documented as of this encounter Care Teams Consumer Marketing Specialist Relationship Specialty Start Date End Date Jules Escalona MD [address] [place] [address] PCP - General Internal Medicine 09/07/19 documented as of this encounter
--- OUTSIDE RECORDS SUMMARY | 2025-01-14 06:38 | XMS_ITS | Encounter Summary ---
Author Organization [employer] Address [address] [facility] [address] [place] [address] Care Team Providers Care Oral Surgery Physician Name Role Phone Jules Escalona MD Primary Care Prov ider Reason for Visit * Reason Comments Med Refill Encounter Details Date Type Department Care Team ([facility] st Contact Info) Description 01/11/2025 Refill [facility] [address] [place] [address] Jules Escalona MD [address] [place], [place] [phone] Recurrent major depressive disorder, in partial remission (CMS/HCC) Social History Tobacco Use Types Packs/Day Years [...] major depressive disorder, in partial remission (CMS/HCC) documented in this encounter Additional Health Concerns Assessment Noted Time PHQ-9 Depression Total Score: 0 09/16/19 25 8:47 AM EDT documented as of this encounter Care Teams Oral Surgery Physician Relationship Specialty Start Date End Date Jules Escalona MD [address] [place] [id number] PCP - General Internal Medicine 09/07/19 documented as of this encounter
--- OUTSIDE RECORDS SUMMARY | 2025-01-14 06:38 | XMS_ITS | Encounter Summary ---
Author Organization [employer] Address [address] [facility] 7 [place] [address] Care Team Providers Care Sales Merchandiser Name Role Phone Jules Escalona MD Primary Care Prov ider Reason for Visit * Reason Comments Med Refill Encounter Details Date Type Department Care Team ([facility] Contact Info) Description 09/25/2024 Refill [facility] [address] [place], [place] [phone] Jules Escalona MD [address] [place] [address] Recurrent major depressive disorder, in partial remission [...] as of this encounter Care Teams Sales Merchandiser Relationship Specialty Start Date End Date Jules Escalona MD [address] [place] [phone] PCP - General Internal Medicine 09/07/19 documented as of this encounter
== END 2025-01-14 06:33 | disposition home or self-care (01) ==
LOC: CF 06:32
PROVIDERS: Visit Provider Internal Medicine
DX: M53.3 Sacrococcygeal disorders, not elsewhere classified (principal); Z79.899 Other long term (current) drug therapy
CPT/HCPCS: 27096; J2003; J2795

== ENCOUNTER 2025-01-14 12:05 | Outpatient (AMB) | payer OTHER, SELFPAY ==
--- NOTE | 2025-01-14 12:11 | MHC.OFFVIS ---
Vital Signs 01/14/25 12:12 01/14/25 12:55 BP 102/60 118/74 Blood Pressure Location Lt brachial Lt brachial Position Sitting Sitting Respiration 16 16 Pulse 80 74 Pulse Source Pulse Oximeter Pulse Oximeter Pulse Oximetry (%) 97 98 Oxygen Delivery Method Room Air Room Air Intake Visit Reasons: Bilateral Diagnostic SIJ Injection Information Systems Coordinator Required: No Allergies phenytoin (From DILANTIN) Allergy (Intermediate, Verified 01/14/25 12:12) NAUSEA buprenorphine (Belbuca) Allergy (Unknown, Verified 01/14/25 12:12) nausea tramadol (TRAMADOL) Allergy (Unknown, Verified 01/14/25 12:12) UNABLE TO SLEEP , AGITATION, restless leg syndrome diphenhydramine Allergy (Verified 01/14/25 12:12) RLS, shaky,agitation benafdryl Allergy (Uncoded 01/14/25 12:12) Unknown Medication List - Last Reconciled 01/14/25 by Lizet Yee LPN atorvastatin 40 mg PO DAILY baclofen 10 mg PO TID cetirizine 10 mg PO QAM dicyclomine 1 tab PO TID duloxetine 60 mg PO DAILY fluoxetine 1 cap PO QAM fluticasone propionate 50 mcg/actuation 1 spray intranasal DAILY gabapentin 1 tab PO TID omeprazole 40 mg PO DAILY ondansetron 8 mg PO TID simethicone (Gas Relief (simethicone)) 180 mg PO DAILY sodium,potassium,mag sulfates 17.5-3.13-1.6 gram (Suprep Bowel Prep Kit) DILUTE; drink full amount early evening before AND next morning at least 2 hr before procedure; follow w 960 mL water PO trazodone 1 tab PO BEDTIME vonoprazan (Voquezna) 10 mg PO DAILY HPI HPI Bilateral Diagnostic SIJ Injection: Details: Patient presents for scheduled procedure. Denies any recent cough, cold, infection, fever or other significant changes in medical history since last office visit. 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 If so, by whom?: No Are you DNR?: No Advance Directives: No Advance Directives Information Provided: Yes service: No Current occupational status: unemployed and disabled Current occupation: Right handed Physical Exam Vital Signs: Last Vital Signs Pulse 74 01/14/25 12:55 Resp 16 01/14/25 12:55 BP 118/74 01/14/25 12:55 Pulse Ox 98 01/14/25 12:55 Oxygen Delivery Method Room Air 01/14/25 12:55 Office Procedures AMB Joint Injection/Aspiration Joint Injection/Aspiration Details: Sacroiliac Joint Injection, bilateral The procedure, its benefits, and its risks were explained and written informed consent was obtained from the patient. Immediately prior to starting the procedure, a time-out safety check was conducted. The patient's identification, procedure name, procedure site, and procedure laterality were confirmed with the patient. ? Patient was placed prone on the fluoroscopy table and the lumbosacral area was prepped using ChloraPrep and draped with sterile draped in standard fashion. The C-arm was rotated in a contralateral oblique fashion until the medial border of the iliac crest no longer foreshadowed the posterior sacroiliac joint line. The skin and subcutaneous tissue was anesthetized using 1 mL of 0.75% plain lidocaine with 1.5-inch 25-gauge needle in the middle region of the joint line.? A 3.5-inch 22-gauge spinal needle with small bend on the tip was slowly advanced towards the joint line, coaxial to the x-ray beam. Once bony content was obtained, the needle was easily slid into the intra-articular space.? Intra-articular needle position was confirmed using lateral fluoroscopy.? A total volume of 2.5mL of solution containing 0.5% of ropivacaine was injected intra-articularly. The stylet was reinserted and needle was removed. The same procedure was repeated on the other side. The patient tolerated the procedure well. Patient denied any lower extremity weakness or numbness. Patient was observed for 30 min and was discharged after fulfilling the standard discharge criteria. Coding 77888 - Sacroiliac (Bilateral) Procedure code (CPT) selection complete Assessment & Plan Assessment & Plan (1) Sacroiliac joint pain: Code(s): M53.3 - Sacrococcygeal disorders, not elsewhere classified Category: Medical Plan Patient is status post bilateral diagnostic sacroiliac joint injections. Patient tolerated procedure well and was discharged home in stable condition with discharge instructions. All questions were answered. We will follow-up via telephone or in clinic to assess response to therapy. A follow-up appointment was made during today's visit. Orders: Orders FL guidance in treatment room 01/14/25 M53.3 - Sacrococcygeal disorders, not elsewhere classified Coding Level of Care Code Procedure Only Diagnoses Sacroiliac joint pain M53.3 CPT Codes Coding - Joint 9: 64968 - Sacroiliac ([id number])
[2025-01-14 12:12] VITALS: BP 102/60; PULSE 80; RESP 16; O2SAT 97
[2025-01-14 12:55] VITALS: BP 118/74; PULSE 74; RESP 16; O2SAT 98
== END 2025-01-14 12:48 | disposition home or self-care (01) ==
LOC: HO.PMCPRC 12:05
PROVIDERS: PCP Internal Medicine; Visit Provider Internal Medicine
DX: M53.3 Sacrococcygeal disorders, not elsewhere classified (principal)
CPT/HCPCS: 27096

== ENCOUNTER 2025-01-15 06:21 | Day surgery (SDC) | payer OTHER, SELFPAY ==
[2025-01-12 14:38] VITALS: BMI 30.9
--- NOTE | 2025-01-14 10:01 | HO.ANESPROP2 ---
Documented by User: Era Pratt NP 01/14/25 10:02 HPI - Anesthesia Eval Consult details Narrative: 64yo M for Colonoscopy with Possible Polypectomy PMFSH Active Problems Active Problems: All Active Problems Sacroiliac joint pain (Acute) Right knee pain (Acute) History of lumbar fusion (Acute) Patellofemoral pain syndrome of left knee (Acute) Patellofemoral pain syndrome of right knee (Acute) History of adenomatous polyp of colon (Acute) Tubular adenoma of colon (Acute) Colon cancer screening (Acute) Chronic abdominal pain (Acute) Anxiety (Acute) Hyperlipidemia (Acute) Chronic back pain (Acute) Past Medical History Medical History History of adenomatous polyp of colon Tubular adenoma of colon Colon cancer screening Chronic abdominal pain Anxiety Hyperlipidemia Chronic back pain Chronic pain Family History Family history of problems with anesthesia: No Surgical History Surgical History History of colonoscopy with polypectomy (11/29/23) History of colonoscopy History of back surgery H/O colonoscopy Hx of abdominal surgery History of Problems with Anesthesia: No Social History Social History Are you a primary child caregiver to a significant other at home: No Do you presently have visiting nurse or other home services: Yes (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 If so, by whom?: No Are you DNR?: No Advance Directives: No Advance Directives Information Provided: Yes service: No Current occupational status: unemployed and disabled Current occupation: Right handed Meds Allergies Allergy/AdvReac Type Severity Reaction Status Date / Time phenytoin (From DILANTIN) Allergy Intermediate NAUSEA Verified 01/14/25 12:12 buprenorphine (Belbuca) Allergy Unknown nausea Verified 01/14/25 12:12 tramadol (TRAMADOL) Allergy Unknown UNABLE TO Verified 01/14/25 12:12 SLEEP , AGITATION, restless leg syndrome diphenhydramine Allergy RLS, Verified 01/14/25 12:12 shaky,agitation benafdryl Allergy Unknown Uncoded 01/14/25 12:12 Home Medications ?Medication ?Instructions ?Recorded ?Confirmed ?Last Taken ?Type dicyclomine 20 mg tablet 1 tab PO TID 04/20/20 01/15/25 01/14/25 History fluoxetine 40 mg capsule 1 cap PO QAM 04/20/20 01/15/25 01/14/25 History gabapentin 800 mg tablet 1 tab PO TID 04/20/20 01/15/25 01/15/25 History trazodone 150 mg tablet 1 tab PO BEDTIME 04/20/20 01/15/25 01/12/25 History simethicone 180 mg capsule (Gas 180 mg PO DAILY 09/20/21 01/15/25 01/14/25 History Relief (simethicone)) atorvastatin 40 mg tablet 40 mg PO DAILY 08/13/22 01/15/25 01/14/25 History baclofen 10 mg tablet 10 mg PO TID 12/23/23 01/15/25 01/14/25 History cetirizine 10 mg tablet 10 mg PO QAM 12/23/23 01/15/25 01/15/25 History duloxetine 60 mg capsule,delayed 60 mg PO DAILY 12/23/23 01/15/25 01/14/25 History release fluticasone propionate 50 1 spray intranasal DAILY 12/23/23 01/15/25 01/14/25 History mcg/actuation nasal spray,suspension ondansetron 8 mg disintegrating 8 mg PO TID 12/23/23 01/15/25 01/12/25 History tablet vonoprazan 10 mg tablet (Voquezna) 10 mg PO DAILY 12/17/24 01/15/25 01/14/25 History Exam Height,Weight and Vital Signs: Height 5 ft 4 in Weight 81.647 kg Assessment and Plan Assessment Anesthesia Assessment: Chart Reviewed Final Anesthetic Review Family History of Problems with Anesthesia: No History of Problems with Anesthesia: No Documented by User: Luke Swenson MD 01/15/25 08:58 [facility] Past Medical History Medical History History of adenomatous polyp of colon Tubular adenoma of colon Colon cancer screening Chronic abdominal pain Anxiety Hyperlipidemia Chronic back pain Chronic pain Cognitive capacity: normal Functional capacity: independent ambulation Surgical History Surgical History History of colonoscopy with polypectomy (11/29/23) History of colonoscopy History of back surgery H/O colonoscopy Hx of abdominal surgery Social History Social History Are you a primary child caregiver to a significant other at home: No Do you presently have visiting nurse or other home services: Yes (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 If so, by whom?: No Are you DNR?: No Advance Directives: No Advance Directives Information Provided: Yes service: No Current occupational status: unemployed and disabled Current occupation: Right handed Meds Allergies Allergy/AdvReac Type Severity Reaction Status Date / Time phenytoin (From DILANTIN) Allergy Intermediate NAUSEA Verified 01/14/25 12:12 buprenorphine (Belbuca) Allergy Unknown nausea Verified 01/14/25 12:12 tramadol (TRAMADOL) Allergy Unknown UNABLE TO Verified 01/14/25 12:12 SLEEP , AGITATION, restless leg syndrome diphenhydramine Allergy RLS, Verified 01/14/25 12:12 shaky,agitation benafdryl Allergy Unknown Uncoded 01/14/25 12:12 Home Medications ?Medication ?Instructions ?Recorded ?Confirmed ?Last Taken ?Type dicyclomine 20 mg tablet 1 tab PO TID 04/20/20 01/15/25 01/14/25 History fluoxetine 40 mg capsule 1 cap PO QAM 04/20/20 01/15/25 01/14/25 History gabapentin 800 mg tablet 1 tab PO TID 04/20/20 01/15/25 01/15/25 History trazodone 150 mg tablet 1 tab PO BEDTIME 04/20/20 01/15/25 01/12/25 History simethicone 180 mg capsule (Gas 180 mg PO DAILY 09/20/21 01/15/25 01/14/25 History Relief (simethicone)) atorvastatin 40 mg tablet 40 mg PO DAILY 08/13/22 01/15/25 01/14/25 History baclofen 10 mg tablet 10 mg PO TID 12/23/23 01/15/25 01/14/25 History cetirizine 10 mg tablet 10 mg PO QAM 12/23/23 01/15/25 01/15/25 History duloxetine 60 mg capsule,delayed 60 mg PO DAILY 12/23/23 01/15/25 01/14/25 History release fluticasone propionate 50 1 spray intranasal DAILY 12/23/23 01/15/25 01/14/25 History mcg/actuation nasal spray,suspension ondansetron 8 mg disintegrating 8 mg PO TID 12/23/23 01/15/25 01/12/25 History tablet vonoprazan 10 mg tablet (Voquezna) 10 mg PO DAILY 12/17/24 01/15/25 01/14/25 History Exam Exam Date and Time: 01/15/2025 Airway Mallampati Class: II TM Dist: >3cm Neck ROM: Full Loose/Missing/Broken Teeth: No Heart: rrr Lungs: cts Other: normal Assessment and Plan Final Anesthetic Review NPO: Yes ASA Class: II Final Preanesthetic Review: No Changes in Pt Med Stat, Meds/Allgs Chart Reviewed, Consent Obtained/Reviewed and Anes Risks/Benef Reviewed Patient Risk: Low Procedure Risk: Low Anesthetic Plan Anesthetic Plan: GA Disposition: Standard PACU
[2025-01-15] VITALS (7 sets, daily range): BP systolic 103–131; BP diastolic 63–79; PULSE 55–69; RESP 16–17; TEMP 36.1–36.2; O2SAT 96–99; BMI 29.4
[2025-01-15] MEDS: Lactated Ringers 1,000 ML 100 ML IVCONT (07:11)
--- NOTE | 2025-01-15 08:12 | MHC.SHP ---
Pre-Procedural Eval Section A - 24 Hr Update-Section A only Date of Service: 01/15/25 The patient is an INPATIENT: No Changes since office visit: No Cold of Flu in the past 2 weeks, No New Medical Problems, No Changes in Medication and No Patient answered all questions The patient has been examined within 24 hours of the surgical procedure. The History & Physical has been completed within 30 days and I have reviewed it.: Yes Section B - Complete if H&P > 30 days Chief Complaint: Personal history of adenomatous and serrated colon Allergies: Allergies Allergy/AdvReac Type Severity Reaction Status Date / Time phenytoin (From DILANTIN) Allergy Intermediate NAUSEA Verified 01/14/25 12:12 buprenorphine (Belbuca) Allergy Unknown nausea Verified 01/14/25 12:12 tramadol (TRAMADOL) Allergy Unknown UNABLE TO Verified 01/14/25 12:12 SLEEP , AGITATION, restless leg syndrome diphenhydramine Allergy RLS, Verified 01/14/25 12:12 shaky,agitation benafdryl Allergy Unknown Uncoded 01/14/25 12:12 Plan I have reviewed the history and physical and performed a pertinent physical examination on my patient. No changes have occurred unless specified. Time Spent With Patient Time: Total time managing care of this patient today ____ minutes.
--- NOTE | 2025-01-15 08:58 | HO.ANESPROP2 ---
[facility] Active Problems Active Problems: All Active Problems Sacroiliac joint pain (Acute) Right knee pain (Acute) History of lumbar fusion (Acute) Patellofemoral pain syndrome of left knee (Acute) Patellofemoral pain syndrome of right knee (Acute) History of adenomatous polyp of colon (Acute) Tubular adenoma of colon (Acute) Colon cancer screening (Acute) Chronic abdominal pain (Acute) Anxiety (Acute) Hyperlipidemia (Acute) Chronic back pain (Acute) Past Medical History Medical History History of adenomatous polyp of colon Tubular adenoma of colon Colon cancer screening Chronic abdominal pain Anxiety Hyperlipidemia Chronic back pain Chronic pain Functional capacity: independent ambulation Family History Family history of problems with anesthesia: No Surgical History Surgical History History of colonoscopy with polypectomy (11/29/23) History of colonoscopy History of back surgery H/O colonoscopy Hx of abdominal surgery History of Problems with Anesthesia: No Social History Social History Are you a primary child care teacher to a significant other at home: No Do you presently have visiting nurse or 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 If so, by whom?: No Are you DNR?: No Advance Directives: No Advance Directives Information Provided: Yes service: No Current occupational status: unemployed and disabled Current occupation: Right handed Meds Allergies Allergy/AdvReac Type Severity Reaction Status Date / Time phenytoin (From DILANTIN) Allergy Intermediate NAUSEA Verified 01/14/25 12:12 buprenorphine (Belbuca) Allergy Unknown nausea Verified 01/14/25 12:12 tramadol (TRAMADOL) Allergy Unknown UNABLE TO Verified 01/14/25 12:12 SLEEP , AGITATION, restless leg syndrome diphenhydramine Allergy RLS, Verified 01/14/25 12:12 shaky,agitation benafdryl Allergy Unknown Uncoded 01/14/25 12:12 Active Medications: Current Medications Lactated Ringer's (Lr) 1,000 mls @ 100 mls/hr IVCONT .Q10H HUANG Last Admin: 01/15/25 07:11 Dose: 100 mls/hr Home Medications ?Medication ?Instructions ?Recorded ?Confirmed ?Last Taken ?Type dicyclomine 20 mg tablet 1 tab PO TID 04/20/20 01/15/25 01/14/25 History fluoxetine 40 mg capsule 1 cap PO QAM 04/20/20 01/15/25 01/14/25 History gabapentin 800 mg tablet 1 tab PO TID 04/20/20 01/15/25 01/15/25 History trazodone 150 mg tablet 1 tab PO BEDTIME 04/20/20 01/15/25 01/12/25 History simethicone 180 mg capsule (Gas 180 mg PO DAILY 09/20/21 01/15/25 01/14/25 History Relief (simethicone)) atorvastatin 40 mg tablet 40 mg PO DAILY 08/13/22 01/15/25 01/14/25 History baclofen 10 mg tablet 10 mg PO TID 12/23/23 01/15/25 01/14/25 History cetirizine 10 mg tablet 10 mg PO QAM 12/23/23 01/15/25 01/15/25 History duloxetine 60 mg capsule,delayed 60 mg PO DAILY 12/23/23 01/15/25 01/14/25 History release fluticasone propionate 50 1 spray intranasal DAILY 12/23/23 01/15/25 01/14/25 History mcg/actuation nasal spray,suspension ondansetron 8 mg disintegrating 8 mg PO TID 12/23/23 01/15/25 01/12/25 History tablet vonoprazan 10 mg tablet (Voquezna) 10 mg PO DAILY 12/17/24 01/15/25 01/14/25 History Exam Height,Weight and Vital Signs: Height 5 ft 4 in Weight 77.8 kg Last Vital Signs Temp 97 F 01/15/25 06:47 Pulse 69 01/15/25 06:47 Resp 17 01/15/25 06:47 BP 127/63 01/15/25 06:47 Pulse Ox 96 01/15/25 06:47 O2 Del Method Room Air 01/15/25 06:47 Assessment and Plan Assessment Anesthesia Assessment: Anesthesia Plan Discussed and Chart Reviewed Final Anesthetic Review Family History of Problems with Anesthesia: No History of Problems with Anesthesia: No NPO: Yes ASA Class: II Final Preanesthetic Review: No Changes in Pt Med Stat, Meds/Allgs Chart Reviewed, Consent Obtained/Reviewed, Anes Risks/Benef Reviewed and DNR Form (If Appl.) Patient Risk: Low Procedure Risk: Low Anesthetic Plan Anesthetic Plan: GA and MAC: Disposition: Standard PACU (for observation)
--- NOTE | 2025-01-15 09:13 | P.OP_ITS ---
Operative Note Operative Note Date of Service: 01/15/25 Narrative: Preop diagnosis: History of tubular adenoma of the colon Postop diagnosis:1. Small flat polyp in the proximal right colon, about 5 mm in size, removed with multiple bites of the cold forceps 2. Flat polyp in the cecum, about 2 cm in size, removed with multiple bites of cold forceps 3. Small flat polyp at level 70 cm, about 7 mm in size, removed with multiple bites of the cold forceps 4. Diffuse diverticulosis Procedure: Colonoscopy with polypectomy using cold forceps x3; endo ink injection into the area of the flat polyp in the cecum Surgeon: Keith Franklin MD The patient is a 64-year-old male well who had a flat tubular adenoma in the cecum on a colonoscopy done last year. I explained to him the in view of the flat nature of the polyp, it would be best to repeat the colonoscopy to ensure adequate removal He understood the technique of the planned procedure as was the risks, benefits, and alternatives The patient was brought to the operating room and placed in left lateral decubitus position under monitored anesthesia care. A surgical time-out was done. A full digital rectal exam was done and this did not reveal any significant anal lesions. The tip of the Olympus colonoscope was gently introduced through the anal orifice advanced with insufflation all the way to the cecum. The cecum was intubated. The cecum was identified by visualization of the ileocecal valve as well as the appendiceal orifice. There was note of a flat polyp, about 2 cm in the cecum. We used multiple bites of the cold forceps to remove this. There was note of some oozing diffusely from the polypectomy so it was difficult to see this was completely removed. There was another small polyp, about 5mm outside the cecum in the proximal right colon. This was removed using multiple bites of cold forceps. The scope was gradually withdrawn with careful examination of the entire colonic mucosa being done with scope withdrawal. The patient had adequate bowel prep so it was unlikely that any lesion may have been missed. Another small polyp, about 7 mm, was removed as well from 70 cm which seemed to be the left colon. There was no note of diffuse diverticulosis throughout the entire colon which was heavy in some segments The rectum was reached and there were no lesions seen. The anal canal was unremarkable. The scope was then withdrawn completely with desufflation The patient tolerated the procedure well. There were no immediate complications. Depending on the path report, I will repeat the colonoscopy in 6 months to re- evaluate all these areas with the flat polyps.
== END 2025-01-15 10:54 | disposition home or self-care (01) ==
PROVIDERS: PCP Internal Medicine; Visit Provider Surgery
PROC: 0DBE8ZZ Excision of Large Intestine, Via Natural or Artificial Opening Endoscopic (ICD-10-PCS; CPT 45380; principal; 2025-01-15 08:40)
DX: Z12.11 Encounter for screening for malignant neoplasm of colon (principal); Z86.0101 Personal history of adenomatous and serrated colon polyps; D12.0 Benign neoplasm of cecum; D12.2 Benign neoplasm of ascending colon; D12.4 Benign neoplasm of descending colon; K57.30 Diverticulosis of large intestine without perforation or abscess without bleeding; K22.4 Dyskinesia of esophagus; G89.29 Other chronic pain; R10.9 Unspecified abdominal pain; M54.9 Dorsalgia, unspecified; E78.5 Hyperlipidemia, unspecified; F41.9 Anxiety disorder, unspecified; Z88.5 Allergy status to narcotic agent; Z88.8 Allergy status to other drugs, medicaments and biological substances; Z98.890 Other specified postprocedural states; Z87.891 Personal history of nicotine dependence; Z56.0 Unemployment, unspecified
CPT/HCPCS: 45380; 88305; J2704; J3010

== ENCOUNTER → 2025-01-15 06:21 | Outpatient (BNV) | payer OTHER, SELFPAY | PROVIDERS: PCP Internal Medicine; Visit Provider Surgery | DX: Z12.11 Encounter for screening for malignant neoplasm of colon (principal); K63.5 Polyp of colon; K57.90 Diverticulosis of intestine, part unspecified, without perforation or abscess without bleeding; Z86.0101 Personal history of adenomatous and serrated colon polyps | CPT/HCPCS: 45380 ==

== ENCOUNTER 2025-01-28 09:51 | Outpatient (AMB) | payer OTHER, SELFPAY ==
[2025-01-28 10:04] VITALS: BP 130/78; PULSE 84
--- NOTE | 2025-01-28 10:04 | MHC.OFFVIS ---
Vital Signs 01/28/25 10:04 Weight 180 lb BP 130/78 Blood Pressure Location Rt brachial Position Sitting Pulse 84 Intake Visit Reasons: S/P colonoscopy Intake Note: Patient here s/p Colonoscopy with polypectomy using cold forceps x3; endo ink injection into the area of the flat polyp in the cecum. Patient c/o: no concerns. Reports procedure went well. Colonoscopy: 01-15-2025 Unit Assistant Required: No Accompanied by: Self / Same As Patient Allergies phenytoin (From DILANTIN) Allergy (Intermediate, Verified 01/28/25 10:05) NAUSEA buprenorphine (Belbuca) Allergy (Unknown, Verified 01/28/25 10:05) nausea tramadol (TRAMADOL) Allergy (Unknown, Verified 01/28/25 10:05) UNABLE TO SLEEP , AGITATION, restless leg syndrome diphenhydramine Allergy (Verified 01/28/25 10:05) RLS, shaky,agitation benafdryl Allergy (Uncoded 01/28/25 10:05) Unknown Medication List - Last Reconciled 01/28/25 by Keith Franklin MD atorvastatin 40 mg PO DAILY baclofen 10 mg PO TID cetirizine 10 mg PO QAM dicyclomine 1 tab PO TID duloxetine 60 mg PO DAILY fluoxetine 1 cap PO QAM fluticasone propionate 50 mcg/actuation 1 spray intranasal DAILY gabapentin 1 tab PO TID omeprazole 40 mg PO DAILY ondansetron 8 mg PO TID simethicone (Gas Relief (simethicone)) 180 mg PO DAILY trazodone 1 tab PO BEDTIME vonoprazan (Voquezna) 10 mg PO DAILY HPI HPI S/P colonoscopy: Details: He had undergone colonoscopy last 01/15/2025 because of the history of tubular adenomas. He tolerated procedure well. He did describe having bloating and abdominal discomfort for a few days after the procedure He currently feels well. He has good oral intake. 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) Alcohol intake: never Comment: trying to sleep Patient Tobacco Use Status: Former Tobacco user Tobacco use type: Cigarette Second Hand Smoke Exposure: No service: No Current occupational status: unemployed and disabled Current occupation: Right handed Review of Systems Const Denies chills and Denies fever(s) Card Denies chest pain, Denies dyspnea and Denies dyspnea on exertion Resp Denies cough, Denies dyspnea and Denies dyspnea on exertion GI Denies hematochezia and Denies change in bowel habits Denies hematuria and Denies difficulty urinating Musc Denies back pain and Denies limited range of motion Neuro Denies focal weakness and Denies convulsions Psych Denies depression and Denies mood swings Physical Exam Vital Signs: Last Vital Signs Pulse 84 01/28/25 10:04 BP 130/78 01/28/25 10:04 Const General: comfortable and no acute distress Resp Effort & Inspection: normal respiratory effort Cardio Rate: regular rate GI Palpation (GI): Soft to palpation, not firm, nontender and no guarding Assessment & Plan Assessment & Plan (1) Tubular adenoma of colon: Code(s): D12.6 - Benign neoplasm of colon, unspecified Category: Medical Plan: Status post colonoscopy. Again, there was note of a flat polyp, 2 cm in the cecum. I removed this with multiple bites of the cold forceps. However, in view of the flat nature, I am uncertain if this has completely removed. He had smaller polyps in the right colon as well as at level 70 cm. All of these polyps were tubular adenomas without high-grade dysplasia I am recommending another colonoscopy in the next 6-12 months to re-evaluate the cecal area because of this persistent flat polyp He understands the plan well Coding Level of Care Code Est Pt Level 2 (24560) Diagnoses Tubular adenoma of colon D12.6
--- OUTSIDE RECORDS SUMMARY | 2025-01-28 11:31 | XMS_ITS | Encounter Summary ---
Author Organization [employer] Address [address] [facility] [address] [place] [address] Care Team Providers Care Cut And Print Machine Operator Name Role Phone Jules Escalona MD Primary Care Prov ider Encounter Details Date Type Department Care Team (Latest Contact Info) Description 01/25/2025 Travel Social History Tobacco Use Types Packs/Day [...] documented as of this encounter Care Teams Cut And Print Machine Operator Relationship Specialty Start Date End Date Jules Escalona MD [address] [place] [phone] PCP - General Internal Medicine 09/07/19 documented as of this encounter
--- OUTSIDE RECORDS SUMMARY | 2025-01-28 11:31 | XMS_ITS | Encounter Summary ---
Author Organization [employer] Address [address] [facility] 7 [place] [address] Care Team Providers Care Fancy Packer Name Role Phone Jules Escalona MD Primary Care Prov ider Reason for Visit * Reason Comments Med Refill Encounter Details Date Type Department Care Team ([facility] Contact Info) Description 06/23/[address] [facility] MED & PEDS [address] [place] [address] Margie Martínez MD [address] [place] [address] Irritable bowel syndrome with both constipation and [...] documented as of this encounter Care Teams Fancy Packer Relationship Specialty Start Date End Date Jules Escalona MD [address] [place] [phone] PCP - General Internal Medicine 09/07/19 documented as of this encounter
--- OUTSIDE RECORDS SUMMARY | 2025-01-28 11:31 | XMS_ITS | Encounter Summary ---
Author Organization [employer] Address [address] [facility] 7t [place] [address] Care Team Providers Care Fire Range Technician Name Role Phone Jules Escalona MD Primary Care Prov ider Reason for Visit * Reason Comments Med Refill Encounter Details Date Type Department Care Team ([facility] st Contact Info) Description 11/12/2024 Refill [facility] MEDICINE [address] [place] [address] Jules Escalona MD [address] [place], [place] [phone] Social History Tobacco Use Types Packs/Day Years [...] documented as of this encounter Care Teams Fire Range Technician Relationship Specialty Start Date End Date Jules Escalona MD [address] [place] [address] PCP - General Internal Medicine 09/07/19 documented as of this encounter
--- OUTSIDE RECORDS SUMMARY | 2025-01-28 11:31 | XMS_ITS | Clinical Summary ---
Author Organization [address] [facility] Address [address] [place] [address] Phone Care Team Providers Care Round Corner Cutter Operator Name Role Phone Jules Escalona Primary Care [...] patient's age to complete this topic [place] [place] [address] MED[place] [id number] LUND [id number] Care Teams Round Corner Cutter Operator Relationship Specialty Start Date End Date Jules Escalona [address] [place], [place] PCP - General 01/02/24
--- OUTSIDE RECORDS SUMMARY | 2025-01-28 11:31 | XMS_ITS | Encounter Summary ---
Author Organization [employer] Address [address] [place] [address] 7t [place] [address] Care Team Providers Care Nurse Research Name Role Phone Jules Escalona MD Primary Care Prov ider Encounter Details Date Type Department Care Team (Latest Contact Info) Description 01/23/2022 Abstract [facility] CONVERSIONS Dental, Provider, DDS Social [...] on filedocumented in this encounter Care Teams Nurse Research Relationship Specialty Start Date End Date Jules Escalona MD [address] [facility] [place] [address] PCP - General Internal Medicine 09/07/19 documented as of this encounter
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
--- OUTSIDE RECORDS SUMMARY | 2025-01-28 11:31 | XMS_ITS | Encounter Summary ---
Author Organization [employer] Address [address] [facility] [address] 7[address] [place] [address] Care Team Providers Care Office Professional Name Role Phone Jules Escalona MD Primary Care Prov ider Encounter Details Date Type Department Care Team ([facility] Contact Info) Description 08/29/2023 Orders Only [facility] MEDICINE [address] [place] [address] ProviderFredy MD Social History Tobacco Use Types Packs/Day Years Used Date Smoking Tobacco: Never Passive Smoke Exposure: Never Smokeless Tobacco: Never Alcohol Use Standard Drinks/Week Comments Never 0 (1 standard drink = 0.6 oz pur e alcohol) Depression Answer Date Recorded Patient Health Questionnaire-9 Score 5 07/30/2022 Housing Stability Answer Date Recorded What is your housing situation today? I have ivcki gutierrez 02/25/[address] you [...] documented as of this encounter Care Teams Office Professional Relationship Specialty Start Date End Date CarcamoJules Huff MD [address] [place] [phone] PCP - General Internal Medicine 09/07/19 documented as of this encounter
--- OUTSIDE RECORDS SUMMARY | 2025-01-28 11:31 | XMS_ITS | Clinical Summary ---
Author Organization [employer] Address 75 [facility] 7t [place] [address] Care Team Providers Care Senior Label Specialist Name Role Phone Jules Escalona MD [...] naloxone (Narcan) 4 mg/0.1 mL nasal spray [place] 0.1 mL into one nostril. 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 Date Type Department Care Team Description 01/27/2025 Refill [facility] MEDICINE [address] [place] [address] Jules Escalona MD 01/25/2025 Travel 01/22/2025 Telephone [facility] MED & PEDS [address] [place] [address] Jules Escalona MD Chart Prep 01/15/2025 Orders Only GENERIC EXTERNAL DATA DEPARTMENT Provider, Generic External Data 01/11/2025 Refill [facility] [address] [place] [address] Jules Escalona MD Recurrent major depressive disorder, in partial remission ([facility]) 01/07/2025 Telephone [facility] MED & PEDS [address] [place] [address] Jules Escalona MD No Show 01/07/2025 Telephone [facility] MED & PEDS [address] [place] [address] Jules Escalona MD 01/07/2025 Travel 01/06/2025 Telephone [facility] MED & PEDS [address] [place] [address] Jules Escalona MD chart prep 01/06/2025 Telephone [facility] [address] [place] [address] Jules Escalona MD Nurse Triage 11/24/2024 Refill [facility] [address] [place] [address] Jules Escalona MD 11/12/2024 Refill [facility] [address] [place] [address] Jules Escalona MD from Last 3 Months Immunizations Immunization Administration [...] A1C 12/13/2024 025, 06/21/2023, 07/30/2022 COVID-19 Vaccine (3 - season) 2025 05/03/2021, 10/04/2020 Influenza Vaccine (#1) 2025 , 06/21/2023, 08/03/2022, Additional history exists Tobacco Screening 03/16/2025 03/16/2024 Lipid Panel 03/25/2025 03/25/2024, 02/0 01/2024, 07/30/2022, Additional history exists Alcohol/Substance Use [...] Procedure Name Priority Date/Time Associated Diagnosis Comments HEMATOXYLIN AND EOSIN STAIN Routine 01/15/2025 8:47 AM EDT HEMOGLOBIN A1C Routine 06/15/2024 2:52 PM EST [...] Recently Relevant to Health Maintenance Results * Hematoxylin and Eosin Stain (01/15/2025 8:47 AM EDT) 01/15/2025 8:47 AM EDT 01/15/2025 9:31 AM EDT [facility] LABS - 01/18/2025 2:05 PM EDT ----- ------- Name: Pedrito Fulton Age/Sex: 64/M : 1960 Unit#: [id number] Attend Dr: Keith Franklin MD Re01/15/25 Status: [facility] Location: [facility] Disch: ----- ------- SPEC : [id number] RECD: 01/15/25 STATUS: JOE LOW NUM: [id number] LUMA: 01/15/25 [facility] DR: Keith Franklin MD ENTERED: 01/15/25 SP TYPE: Surgical OTHR DR: Jules Escalona MD ORDERED: HE Stain/9, Gross Micro L4/3 Diagnosis A. Colon, right side, polypectomy: Tubular adenoma; negative for high-grade dysplasia. B. Cecum, polypectomy: Tubular adenoma; negative for high-grade dysplasia. C. Colon, polyp at 70 cm, polypectomy: Tubular adenoma; negative for high-grade dysplasia. Clinical History Pre-Op Dx: Personal history of adenomatous and serrated colon Post-Op Dx: Colon polyps, diverticulosis Microscopic Description Microscopic sections reviewed. Material Received A. Right side flat colon polyp B. Cecal polyp C. Polyp at 70 cm Gross Description Received in 3 parts. A. Received in formalin labeled right side flat colon polyp are 2 fragments of mansfield-white soft tissue measuring 0.3 and 0.4 cm in greatest dimension which are wrapped in lens paper and entirely submitted for microscopic examination, 2 pieces in cassette A. B. Received in formalin labeled cecal polyp are 4 fragments of mansfield-white soft tissue measuring 0.2-0.3 cm in greatest dimension which are wrapped in lens paper and entirely submitted for microscopic examination, 4 pieces in cassette b. C. Received in formalin labeled polyp at 70 cm are 4 fragments of mansfield-white soft tissue measuring 0.3-0.5 cm in greatest dimension which are wrapped in lens paper and entirely submitted for microscopic examination, 4 pieces in cassette C. ([facility]) CONTINUED ON NEXT PAGE ----- ------- Name: Pedrito Fulton Age/Sex: 64/M : 1960 Unit#: [id number] Attend Dr: Keith Franklin MD Re01/15/25 Status: [facility] Location: [facility] Disch: ----- ------- SPEC : [id number] RECD: 01/15/25 STATUS: JOE LOW NUM: [id number] LUMA: 01/15/25 [facility] DR: Keith Franklin MD ENTERED: 01/15/25 SP TYPE: Surgical OTHR DR: Jules Escalona MD ORDERED: HE Stain/9, Gross Micro L4/3 IHC S/NG Disclaimer NOTE: Unless otherwise stated, all tissue is formalin-fixed and paraffin-embedded. Some or all of the immunohistochemical tests reported herein may have been developed and their performance characteristics determined by [facility]. They have not been cleared or approved by the U.S. Food and Drug Administration (FDA). However, the FDA has determined that such clearance or approval is not necessary. This laboratory is certified under the Clinical Laboratory Improvement Amendments of 1988 (CLIA) as qualified to perform high complexity clinical laboratory testing. Copies To: Jules Escalona MD [address] [address] Keith Franklin MD [facility] [address] [place] [id number] ----- ------- Signed (signature on file) Sasha Ybarra MD 01/18/25 1405 ----- ------- END OF REPORT us Generic External Data Provider LAB BLOOD ORDERAB LES Final Result [facility] [address] [place] [phone] * (ABNORMAL) Hemoglobin A1c (06/15/2024 2:52 PM EST) Hemoglobin A1c 6.1(H) <6.0 % [facility] Comment:Hemoglobin A1C Refer ence Range Adults: 4.8 - 6.0 % Non diabetic: < 6.0 % Goal: < 7.0 %Additional Action Suggested: > 8.0 %Note: Hemoglobin A1c results are invalid for patients with abnormal amounts of HbF. Blood transfusions may impact the HbA1c concentration in the patient sample. Estimated Average Glucose 128 mg/dL [facility] Comment:eAG = Estimated ave rage glucose which is %A1C expressed asaverage glucose, using the formula of the K1T-UxximopFsrfkjk Glucose study (ADAG), Diabetes Care, Vol.31,#8,Dec. 2007 Blood Venous blood specimen / Unknown 06/15/2024 2:52 PM EST 06/15/2024 5:39 PM EST Jules Lopez MD LAB BLOOD ORDERABL ES Final Result Performing Organization Address [facility] Co de Phone Number [facility] [address] [place] [address] [phone] * (ABNORMAL) Lipid Panel, Standard (03/25/2024 8:33 AM EST) Triglycerides 233(H) <150 mg/dL [facility] Comment:Slight Lipemia.Claudette able Triglyceride: less than 150 mg/dLBorderline High Triglyceride 150-199 mg/dLHigh Triglyceride: 200-499 mg/dLVery High Triglyceride: greater than or equal to 5OO mg/dL Cholesterol 180 <200 mg/dL [facility] Comment:Desirable Cholestero l: less than 200 mg/dLBorderline High Cholesterol: 200-239 mg/dLHigh Cholesterol: greater than 239 mg/dL LDL Cholesterol Calculated 82 <100 mg/dL [facility] Comment:Desirable LDL: less than 100 mg/dLNear Optimal/Above Optimal LDL: 110- 129 mg/dLBorderline High LDL: 130-159 mg/dLHigh LDL: 160-189 mg/dLVery High LDL: greater than or equal to 190 mg/dL HDL Cholesterol 52 >40 mg/dL [facility] Comment:Desirable HDL: great er than 40 mg/dL Note: This HDL assay may give artificially low results in patients with liver disease. Blood Venous blood specimen / Unknown 03/25/2024 8:33 AM EST 03/25/2024 2:19 PM EST Jules Lopez MD LAB BLOOD ORDERABL ES Final Result Performing Organization Address [facility]/ZIP Co de Phone Number [facility] [address] [place] [address] [phone] * Hm Colonoscopy (07/05/2023 8:17 AM EST) us Historical Provider HEALTH MAINTENANCE Final Result * HIV-1 RNA, Quantitative, Real-Time PCR with Reflex to Genotype (RTI, PI, Integrase) (07/30/2022 9:03 AM EDT) HIV 1 RNA, QN PCR NOT DETECTED copies/mL [facility], HIV 1 RNA, QN PCR NOT DETECTED Log copies/mL [facility], Comment: REFERENCE RANGE: NOT DETECTED copies/mL NOT DETECTED Log copies/mL This test was performed using Real-Time Polymerase Chain Reaction. Reportable range is 20 to 10,000,000 copies/mL (1.30-7.00 Log copies/mL). 07/30/2022 9:03 AM EDT 07/30/2022 9:03 AM EDT Narrative [facility] - 08/02/2022 7:14 PM EDT FASTING:YES FASTING: YES Jules Lopez MD LAB BLOOD ORDERABL ES Final Result [facility] [address], [place] [address] [facility], [address] [place] [address] * Hepatitis C Antibody with Reflex to HCV, RNA, Quantitative, Real-Time PCR (07/30/2022 9:03 AM EDT) Pathologist [facility] Hepatitis C Antibody NON-REACT KELLY NON-REACT KELLY [facility] Index 0.05 <1.00 [facility] Comment: HCV antibody was non-reactive. There is no laboratory evidence of HCV infection. In most cases, no further action is required. However, if recent HCV exposure is suspected, a test for HCV RNA (test code 77631) is suggested. For additional information please refer to http://education.Rangespan/faq/RVI37s8 (This link is being provided for informational/ educational purposes only.) Blood Venous blood specimen / Unknown 07/30/2022 9:03 AM EDT 07/30/2022 9:03 AM EDT Narrative [facility] - 08/02/2022 7:14 PM EDT FASTING:YES FASTING: YES Jules Lopez MD LAB BLOOD ORDERABL ES Final Result [facility] [address], [place] [address] [facility] [address] [place] [address] from Last 3 Months or Most Recently Relevant to Health Maintenance Insurance [facility] [address] [facility] [id number] DINORAH TRAVIS [id number] Care Teams Senior Label Specialist Relationship Specialty Start Date End Date Jules Escalona MD [address] [place] [address] [place] Travis [phone] PCP - General Internal Medicine 09/07/19
--- OUTSIDE RECORDS SUMMARY | 2025-01-28 11:31 | XMS_ITS | Encounter Summary ---
Author Organization [employer] Address [address] [facility] 7 [place] [address] Care Team Providers Care Drafting Clerk Name Role Phone Jules Escalona MD Primary Care Prov ider Reason for Visit * Reason Comments Med Refill Encounter Details Date Type Department Care Team ([facility] Contact Info) Description 09/25/2024 Refill [facility] MED & PEDS [address] [place], [place] [phone] Jules Escalona MD [address] [place] [address] Recurrent major depressive disorder, in partial remission [...] documented as of this encounter Care Teams Drafting Clerk Relationship Specialty Start Date End Date Jules Escalona MD [address] [place] [phone] PCP - General Internal Medicine 09/07/19 documented as of this encounter
--- OUTSIDE RECORDS SUMMARY | 2025-01-28 11:31 | XMS_ITS | Encounter Summary ---
Author Organization [employer] Address [address] [facility] 7t [place] [address] Care Team Providers Care Storekeeper Steward Name Role Phone Jules Escalona MD Primary Care Prov ider Reason for Visit * Reason Comments Med Refill Encounter Details Date Type Department Care Team ([facility] st Contact Info) Description 01/27/2025 Refill [facility] MEDICINE [address] [place] [address] Jules Escalona MD [address] [place], [place] [phone] Social History Tobacco Use Types Packs/Day Years [...] documented as of this encounter Care Teams Storekeeper Steward Relationship Specialty Start Date End Date Jules Escalona MD [address] [place] [address] PCP - General Internal Medicine 09/07/19 documented as of this encounter
--- OUTSIDE RECORDS SUMMARY | 2025-01-28 11:31 | XMS_ITS | Encounter Summary ---
Author Organization [employer] Address [address] [facility] 7t [place] [address] Care Team Providers Care Biopsychologist Name Role Phone Jules Escalona MD Primary Care Prov ider Reason for Visit * Reason Onset Date Comments left small partial in office 01/31/2023 Encounter Details Date Type Department Care Team ([facility] st Contact Info) Description 01/31/2023 Telephone [facility] [address] [place] [address] Aston Espinoza DDS [address] [place] [address] left small partial in office Social History [...] documented as of this encounter Care Teams Biopsychologist Relationship Specialty Start Date End Date Jules Escalona MD [address] [place] [address] PCP - General Internal Medicine 09/07/19 documented as of this encounter
--- OUTSIDE RECORDS SUMMARY | 2025-01-28 11:31 | XMS_ITS | Encounter Summary ---
Author Organization [email or web address] Address [address] [place] [address] 7t [place] [address] Care Team Providers Care Sinker Winder Name Role Phone Jules Escalona MD Primary Care Prov ider Encounter Details Date Type Department Care Team (Latest Contact Info) Description 02/23/2021 Abstract [facility] CONVERSIONS Dental, Provider, DDS Social History [...] on filedocumented in this encounter Care Teams Sinker Winder Relationship Specialty Start Date End Date Jules Escalona MD [address] [facility] [place] [address] PCP - General Internal Medicine 09/07/19 documented as of this encounter
--- OUTSIDE RECORDS SUMMARY | 2025-01-28 11:31 | XMS_ITS | Encounter Summary ---
Author Organization [employer] Address [address] [facility] 7t [place] [address] Care Team Providers Care Neck Band Operator Name Role Phone Jules Escalona MD Primary Care Prov ider Encounter Details Date Type Department Care Team ([facility] Contact Info) Description 08/10/[address] [facility] CHC MED & PEDS [address] [place] [address] Jules Escalona MD [address] [place] [address] Social History Tobacco Use Types Packs/Day Years [...] documented as of this encounter Care Teams Neck Band Operator Relationship Specialty Start Date End Date Jules Escalona MD [address] [place] [address] PCP - General Internal Medicine 09/07/19 documented as of this encounter
--- OUTSIDE RECORDS SUMMARY | 2025-01-28 11:31 | XMS_ITS | Encounter Summary ---
Author Organization [employer] Address [address] [facility] 7t [place] [address] Care Team Providers Care Research And Insights Executive Name Role Phone Jules Escalona MD Primary Care Prov ider Reason for Visit * Reason Comments Med Refill Encounter Details Date Type Department Care Team ([facility] st Contact Info) Description 01/11/2025 Refill [facility] MEDICINE [address] [place] [address] Jules Escalona MD [address] [place] [place], [place] [phone] Recurrent major depressive disorder, in partial remission [...] documented as of this encounter Care Teams Research And Insights Executive Relationship Specialty Start Date End Date Jules Escalona MD [address] [place] [id number] PCP - General Internal Medicine 09/07/19 documented as of this encounter
--- OUTSIDE RECORDS SUMMARY | 2025-01-28 11:31 | XMS_ITS | Encounter Summary ---
Author Organization [employer] Address [address] [facility] 7 [place] [address] Care Team Providers Care Instrumentation Specialist Name Role Phone Jules Escalona MD Primary Care Prov ider Reason for Visit * Reason Comments Med Refill Encounter Details Date Type Department Care Team ([facility] Contact Info) Description 06/05/2024 Refill [facility] CHC MED & PEDS [address] [place] [address] Jules Escalona MD 505 [place] [address] Seasonal allergies Social History Tobacco Use Types [...] documented as of this encounter Care Teams Instrumentation Specialist Relationship Specialty Start Date End Date Jules Escalona MD [address] [place] [address] PCP - General Internal Medicine 09/07/19 documented as of this encounter
--- OUTSIDE RECORDS SUMMARY | 2025-01-28 11:31 | XMS_ITS | Encounter Summary ---
Author Organization [employer] Address [address] [facility] 7 [place] [address] Care Team Providers Care Pick Up Attendant Name Role Phone Jules Escalona MD Primary Care Prov ider Reason for Visit * Reason Comments Med Refill Encounter Details Date Type Department Care Team ([facility] Contact Info) Description 10/15/2023 Refill [facility] CHC MED & PEDS [address] [place] [address] Jules Escalona MD 505 [place] [address] Delayed gastric emptying Social History Tobacco Use [...] documented as of this encounter Care Teams Pick Up Attendant Relationship Specialty Start Date End Date Jules Escalona MD [address] [place] [id number] PCP - General Internal Medicine 09/07/19 documented as of this encounter
--- OUTSIDE RECORDS SUMMARY | 2025-01-28 11:31 | XMS_ITS | Encounter Summary ---
Author Organization [employer] Address [address] [place] [address] 7 [place] [address] Care Team Providers Care Chair Car Driver Name Role Phone Jules Escalona MD Primary Care Prov ider Encounter Details Date Type Department Care Team (Latest Contact Info) Description 04/15/2020 Abstract [facility] CONVERSIONS Dental, Provider, DDS Social History Tobacco [...] on filedocumented in this encounter Care Teams Chair Car Driver Relationship Specialty Start Date End Date Jules Escalona MD [address] [place] [address] PCP - General Internal Medicine 09/07/19 documented as of this encounter
--- OUTSIDE RECORDS SUMMARY | 2025-01-28 11:31 | XMS_ITS | Encounter Summary ---
Author Organization [employer] Address [address] [place] [address] 7 [place] [address] Care Team Providers Care District Sales Representative Name Role Phone Jules Escalona MD Primary Care Prov ider Encounter Details Date Type Department Care Team (Latest Contact Info) Description 04/29/2019 Abstract [facility] CONVERSIONS Dental, Provider, DDS Social [...] on filedocumented in this encounter Care Teams District Sales Representative Relationship Specialty Start Date End Date Jules Escalona MD [address] [facility] [place] [address] PCP - General Internal Medicine 09/07/19 documented as of this encounter
--- OUTSIDE RECORDS SUMMARY | 2025-01-28 11:31 | XMS_ITS | Encounter Summary ---
Author Organization [employer] Address [address] [facility] 7 [place] [address] Care Team Providers Care Chop Saw Operator Name Role Phone Jules Escalona MD Primary Care Prov ider Reason for Visit * Reason Onset Date Comments Med Refill 10/07/2024 Encounter Details Date Type Department Care Team ([facility] Contact Info) Description 10/07/2024 Telephone [facility] MEDICINE [address] [place] [address] Jules Escalona MD [address] [address] [place], [place] [phone] Med Refill Social History Tobacco Use Types [...] ondansetron 8 mg To be sent to: [id number] [place], [place] - [address] [place] [address] AT [facility] documented in this encounter Plan of Treatment Not on file documented as of this encounter Visit Diagnoses Not on filedocumented in this encounter Additional Health Concerns Assessment Noted Time PHQ-9 Depression Total Score: 0 09/16/19 25 8:47 AM EDT documented as of this encounter Care Teams Chop Saw Operator Relationship Specialty Start Date End Date Jules Escalona MD 505 [place] [address] PCP - General Internal Medicine 09/07/19 documented as of this encounter
--- OUTSIDE RECORDS SUMMARY | 2025-01-28 11:31 | XMS_ITS | Encounter Summary ---
Author Organization [employer] Address [address] [facility] [address] 7t [place] [address] Care Team Providers Care Truck Loader Overhead Crane Name Role Phone Jules Escalona MD Primary Care Prov ider Encounter Details Date Type Department Care Team ([facility] Contact Info) Description 10/14/2023 Telephone [facility] ADULT DENTAL [address] [place] [address] Sherine Ramirez DMD Social History Tobacco Use [...] documented as of this encounter Care Teams Truck Loader Overhead Crane Relationship Specialty Start Date End Date Jules Escalona MD [address] [place] [address] PCP - General Internal Medicine 09/07/19 documented as of this encounter
--- OUTSIDE RECORDS SUMMARY | 2025-01-28 11:31 | XMS_ITS | Encounter Summary ---
Author Organization [employer] Address [address] [place] [address] 7 [place] [address] Care Team Providers Care English Composition Instructor Name Role Phone Jules Escalona MD Primary Care Prov ider Reason for Visit * Reason Onset Date Comments Nurse Triage 11/06/2022 Encounter Details Date Type Department Care Team ([facility] Contact Info) Description 11/06/2022 Telephone C CHC MED & PEDS [address] [place] [address] Jules Escalona MD 505 [place] [address] Nurse Triage Social History Tobacco Use Types [...] 4:04 PM EDT Triage call with pacific Maintenance Fitter [place] [id number] Pt reports blood pressure is up and [...] Getting worse The caller accepted this outcome (Iranian speaker) documented in this encounter Plan of Treatment Not on file documented as of this encounter Visit Diagnoses Not on filedocumented in this encounter Additional Health Concerns Assessment Noted Time PHQ-9 Depression Total Score: 5 07/31/19 23 8:54 AM EDT documented as of this encounter Care Teams English Composition Instructor Relationship Specialty Start Date End Date Jules Escalona MD [address] [place] [address] PCP - General Internal Medicine 09/07/19 documented as of this encounter
== END 2025-01-28 10:18 | disposition home or self-care (01) ==
LOC: HO.HGS 09:52
PROVIDERS: Visit Provider Surgery
DX: D12.6 Benign neoplasm of colon, unspecified (principal)
CPT/HCPCS: 99212

== ENCOUNTER → 2025-01-28 09:51 | Outpatient (BNVA) | payer OTHER, SELFPAY | PROVIDERS: Visit Provider Surgery | DX: D12.6 Benign neoplasm of colon, unspecified (principal) | CPT/HCPCS: 99212 ==

== ENCOUNTER 2025-02-10 09:02 | Outpatient (AMB) | payer OTHER, SELFPAY ==
--- NOTE | 2025-02-10 09:19 | MHC.OFFVIS ---
Vital Signs 02/10/25 09:20 Height 5 ft 4 in Weight 175 lb BMI 30.0 BP 144/80 H Blood Pressure Location Lt brachial Position Sitting Respiration 16 Pulse 68 Pulse Source Pulse Oximeter Pulse Oximetry (%) 97 Oxygen Delivery Method Room Air Intake Visit Reasons: S/P Bilateral Diagnostic SIJ Injection Retail Field Representative Required: No Allergies phenytoin (From DILANTIN) Allergy (Intermediate, Verified 02/10/25 09:22) NAUSEA buprenorphine (Belbuca) Allergy (Unknown, Verified 02/10/25 09:22) nausea tramadol (TRAMADOL) Allergy (Unknown, Verified 02/10/25 09:22) UNABLE TO SLEEP , AGITATION, restless leg syndrome diphenhydramine Allergy (Verified 02/10/25:22) RLS, shaky,agitation benafdryl Allergy (Uncoded 02/10/25:22) Unknown Medication List - Last Reconciled 02/10/25 by Lizet Yee LPN atorvastatin 40 mg PO DAILY baclofen 10 mg PO TID cetirizine 10 mg PO QAM dicyclomine 1 tab PO TID duloxetine 60 mg PO DAILY fluoxetine 1 cap PO QAM fluticasone propionate 50 mcg/actuation 1 spray intranasal DAILY gabapentin 1 tab PO TID omeprazole 40 mg PO DAILY ondansetron 8 mg PO TID simethicone (Gas Relief (simethicone)) 180 mg PO DAILY trazodone 1 tab PO BEDTIME vonoprazan (Voquezna) 10 mg PO DAILY HPI HPI S/P Bilateral Diagnostic SIJ Injection: Details: History of Present Illness The patient is a 64-year-old male presenting with sacroiliac joint dysfunction and knee pain. The sacroiliac joint dysfunction was identified following diagnostic sacroiliac joint injections, which provided significant relief >80% for one day, indicating a positive response to the test injection. The patient reports persistent back pain and radicular pain extending down the legs, which has been impacting his daily activities. Regarding knee pain, the patient has received cortisone injections in the knees, which did not provide relief. Additionally, gel injections with Euflexxa were administered to both knees, but these also failed to alleviate the pain. Pain Description - Onset: Chronic back pain with radicular symptoms - Quality: Persistent and severe - Location: Sacroiliac joint and knees - Radiation: Back pain radiating down the legs - Exacerbating factors: Physical activity - Relieving factors: Diagnostic injections provided temporary relief Physical Exam - Appears afebrile. - Alert and oriented. - Mood and affect appropriate. - Follows and participates in conversation appropriately. - Respiratory effort is unlabored. Results Pain Management - Affect: Pain significantly impacts daily activities and mood - Analgesia: Diagnostic injections provided temporary relief; cortisone and gel injections were ineffective - Adverse Effects: None reported - Activities of Daily Living: Pain limits physical activity - Aberrant Drug Related Behaviors: None reported [facility] Medical History History of adenomatous polyp of colon Tubular adenoma of colon Colon cancer screening Chronic abdominal pain Anxiety Hyperlipidemia Chronic back pain Chronic pain Surgical History History of colonoscopy with polypectomy (11/29/23) History of colonoscopy History of back surgery H/O colonoscopy Hx of abdominal surgery Social History Are you a primary neonatal intensive care nurse to a significant other at home: No Do you presently have visiting nurse or other home services: Yes (SERVICE DESK SPECIALIST 51 hours per month) Alcohol intake: never Comment: trying to sleep Patient Tobacco Use Status: Former Tobacco user Tobacco use type: Cigarette Second Hand Smoke Exposure: No service: No Current occupational status: unemployed and disabled Current occupation: Right handed Physical Exam Vital Signs: Last Vital Signs Pulse 68 02/10/25 09:20 Resp 16 02/10/25 09:20 BP 144/80 H 02/10/25 09:20 Pulse Ox 97 02/10/25 09:20 Oxygen Delivery Method Room Air 02/10/25 09:20 BMI result Body Mass Index 30.0 Assessment & Plan Assessment & Plan (1) Sacroiliac joint pain: Code(s): M53.3 - Sacrococcygeal disorders, not elsewhere classified Category: Medical Plan Plan Patient was informed and verbally consented to the use of an ambient scribe for clinic note documentation during this visit. 1. Sacroiliac Joint Dysfunction - Plan: Schedule steroid injections to bilateral sacroiliac joints for longer-term relief. 2. Knee Pain - Plan: Consider alternative pain management strategies as previous injections were ineffective. Discussion Notes The patient was informed that the diagnostic sacroiliac joint injection was a positive test, indicating that a steroid injection could provide longer-term relief. We discussed that the cortisone and gel injections in the knees were ineffective, and alternative pain management strategies should be considered. The patient will be contacted to schedule the steroid injection for the sacroiliac joint. Patient Instructions - Await a phone call to schedule the steroid injection for the sacroiliac joint. - Monitor knee pain and report any changes or worsening symptoms. Coding Level of Care Code Est Pt Level 3 (51333) Diagnoses Sacroiliac joint pain M53.3
[2025-02-10 09:20] VITALS: BP 144/80; PULSE 68; RESP 16; O2SAT 97
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
--- OUTSIDE RECORDS SUMMARY | 2025-02-10 09:42 | XMS_ITS | Clinical Summary ---
Author Organization [employer] Address 75 [facility] 7t [place] [address] Care Team Providers Care Administrative Supervisor Name Role Phone Jules Escalona MD [...] 1 kit in the morning. 1 kit 08/03/19 23 Active omeprazole (PriLOSEC) [address] capsule 05/08/20 21 Active Nutritional Supplements (Ensure High Protein) liquid Take 1 can or bottle up to three times a day as needed. 03/09/20 21 Active naloxone (Narcan) 4 mg/0.1 mL nasal spray [place] 0.1 mL into one nostril. Repeat with second device into other nostril after 3 min if no or minimal response. 11/11/19 21 Active mirtazapine (Remeron) 7.5 MG tablet 08/08/19 22 Active lidocaine (LMX) 4 % cream apply pea sized amount to affected area up to three times daily 02/02/20 22 Active cyclobenzaprine (Flexeril) 10 MG tablet Take 1 tablet by mouth 2 times daily. 01/24/20 22 Active cholestyramine (Questran) 4 g packet MIX AND DRINK 1 PACKET BY MOUTH TWICE DAILY WITH MEALS 11/20/19 23 Active amitriptyline (Elavil) 50 MG tablet Active Diclofenac Sodium 1 % gelIndications:Ra dicular pain APPLY 2 GRAMS TO THE AFFECTED AREA(S) BY TOPICAL ROUTE 4 TIMES PER DAY 100 g 3 04/03/20 23 Active famotidine (Pepcid) 40 MG tabletIndications :Delayed gastric emptying TAKE 1 TABLET(40 MG) BY MOUTH IN THE MORNING 30 tablet 3 10/15/19 24 Active acetaminophen (Tylenol) 500 MG tabletIndications :History of tooth extraction, unspecified edentulism class Take 1 tablet (500 mg) by mouth every 6 (six) hours if needed for mild pain for up to 20 doses. 20 tablet 11/13/19 24 Active cetirizine (ZyrTEC) 10 MG tabletIndications :Seasonal allergies TAKE 1 TABLET BY MOUTH IN THE MORNING 90 tablet 3 03/17/20 24 Active polyethylene glycol, PEG, 3350 (Glycolax) 17 GM/SCOOP powder TAKE 17 GM BY MOUTH EVERY DAY 12/22/19 24 Active baclofen (Lioresal) 20 MG tabletIndications :Neck pain on right side,Pain of right hip,Right leg pain Take 1 tablet (20 mg) by mouth 2 times daily. 20 tablet 04/02/20 24 Active fluticasone (Flonase) 50 MCG/ACT nasal sprayIndications: Seasonal allergies Administer 1 spray into each nostril Once per day. Shake gently. Before first use, prime pump. After use, clean tip and replace cap. 16 g 06/09/19 25 2025 Active atorvastatin (Lipitor) 40 MG tabletIndications :Mixed hyperlipidemia TAKE 1 TABLET(40 MG) BY MOUTH IN THE MORNING 90 tablet 3 07/02/19 25 Active dicyclomine (Bentyl) 20 MG tabletIndications :Irritable bowel syndrome with both constipation and diarrhea TAKE 1 TABLET BY MOUTH THREE TIMES DAILY WITH BREAKFAST, LUNCH AND EVENING MEAL 90 tablet 2 08/25/19 25 Active gabapentin (Neurontin) 800 MG tablet TAKE 1 TABLET BY MOUTH THREE TIMES DAILY 90 tablet 1 01/29/20 25 Active traZODone (Desyrel) 150 MG tabletIndications :Primary insomnia TAKE 1 TABLET(150 MG) BY MOUTH AT BEDTIME 30 tablet 3 02/04/20 25 Active FLUoxetine (PROzac) 40 MG capsuleIndication s:Recurrent major depressive disorder, in partial remission (CMS/HCC) TAKE 1 CAPSULE(40 MG) BY MOUTH DAILY 30 capsule 3 02/04/20 25 Active traZODone (Desyrel) 150 MG tabletIndications :Primary insomnia Take 1 tablet (150 mg) by mouth at bedtime. 90 tablet 03/16/20 24 2024 Discontinued FLUoxetine (PROzac) 40 MG capsuleIndication s:Recurrent major depressive disorder, in partial remission (CMS/HCC) Take 1 capsule (40 mg) by mouth Once per day. 30 capsule 3 10/20/19 25 2024 Discontinued gabapentin (Neurontin) 800 MG tablet TAKE 1 TABLET BY MOUTH THREE TIMES DAILY 90 tablet 1 11/26/19 25 2024 Discontinued Active Problems Problem Noted Date [...] bp, target <140/90 >90/60, follow up with crossbar switch adjuster as scheduled Assessment & Plan (11/07/2022 9:44 [...] place order for PSA Recurrent moderate major dep ressive disorder with anxiety (CMS/HCC) 07/30/2022 Assessment & Plan (07/30/2022 9:39 AM EDT): On fluoxetine, followed by a therapist, no suicidal/homicidal ideas, continue same treatment Epigastric pain 09/07/2021 06/18/2023 Overview (06/18/2023): Added automatically from request for surgery [id number] Last Assessment & Plan: Continued sporadic epigastric [...] (06/18/2023): Added automatically from request for surgery [id number] Delayed gastric emptying 08/09/2020 Overview (01/18/2023): Added automatically from request for surgery [id number] Esophageal dysphagia 06/06/2020 06/18/2023 Overview (06/18/2023): Last [...] years Chronic pericarditis 02/21/2018 Continuous opioid dependence (CMS/HCC) 8 Resolved Problems Problem Noted Date Diagnosed Date Resolved Date Difficulty in swallowing 06/18/2023 06/18/2023 Dysphagia 06/18/2023 06/18/2023 04/02/2024 Assessment & Plan (12/30/2023 10:52 PM EDT): Followed by gastroenterology Encounters * This document contains information received from the source organization and may not represent a complete record from that organization. Date Type Department Care Team Description 02/10/2025 Refill [facility] MED[facility] [address] [place] [address] Jules Escalona MD Seasonal allergies 02/01/2025 Refill [facility]ED[facility] [address] [place] [address] Jules Escalona MD Primary insomnia; Recurrent major depressive disorder, in partial remission ([facility]) 01/27/2025 Refill [facility] [address] [place] [address] Jules Escalona MD 01/25/2025 Travel 01/22/2025 Telephone [facility] [address] [place] [address] Jules Escalona MD Chart Prep 01/15/2025 Orders Only GENERIC EXTERNAL DATA DEPARTMENT Provider, Generic External Data 01/11/2025 Refill [facility] [address] [place] [address] Jules Escalona MD Recurrent major depressive disorder, in partial remission ([facility]) 01/07/2025 Telephone [facility] [address] [place] [address] Jules Escalona MD No Show 01/07/2025 Telephone [facility] [address] [place] [address] Jules Escalona MD 01/07/2025 Travel 01/06/2025 Telephone [facility] [address] [place] [address] Jules Escalona MD chart prep 01/06/2025 Telephone [facility] [address], [place] [phone] Jules Escalona MD Nurse Triage 11/24/2024 Refill [facility] [address], [place] [phone] Jules Escalona MD 11/12/2024 Refill [facility] [address] [place] [address] Jules Escalona MD from Last 3 Months [...] 09/15/2025 09/15/2024 Depression Screening 09/15/2025 09/15/2024, 09/16/19 25 SDOH Screening 09/15/2025 09/15/2024 Dental X-Ray: Full [...] 8:47 AM EDT 01/15/2025 9:31 AM EDT [facility] - 01/18/2025 2:05 PM EDT ----- ------- Name: Pedrito Fulton Age/Sex: 64/M : 1960 Unit#: [id number] Attend Dr: Keith Franklin MD Re01/15/25 Status: [facility] Location: .[facility] Disch: ----- ------- SPEC : [id number] RECD: 01/15/25 STATUS: JOE LOW NUM: [id number] LUMA: 01/15/[address] [facility] [address]: Keith Franklin MD ENTERED: 01/15/25 SP [...] microscopic examination, 4 pieces in cassette C. ([facility]) CONTINUED ON NEXT PAGE ----- ------- Name: Pedrito Fulton Age/Sex: 64/M : 1960 Unit#: [id number] Attend Dr: Keith Franklin MD Re01/15/25 Status: [facility] Location: [facility] Disch: ----- ------- SPEC : [id number] RECD: 01/15/25 STATUS: JOE LOW NUM: [id number] LUMA: 01/15/[address] [facility] [address]: Keith Franklin MD ENTERED: 01/15/25 SP TYPE: Surgical OTHR DR: Jules Escalona MD ORDERED: HE Stain/9, Gross Micro L4/3 IHC S/NG Disclaimer NOTE: Unless otherwise stated, all tissue is formalin-fixed and paraffin-embedded. Some or all of the immunohistochemical tests reported herein may have been developed and their performance characteristics determined by [facility]. They have not been cleared or approved by the U.S. Food and Drug Administration (FDA). However, the FDA has determined that such clearance or approval is not necessary. This laboratory is certified under the Clinical Laboratory Improvement Amendments of 1988 (CLIA) as qualified to perform high complexity clinical laboratory testing. Copies To: Jules Escalona MD [address] [id number] Keith Franklin MD [facility] [address] [place] [address] ----- ------- Signed (signature on file) Sasha Ybarra MD 01/18/25 1405 ----- ------- END OF REPORT us Generic External Data Provider LAB BLOOD ORDERAB LES Final Result [facility] [address] [place] [phone] [phone] * (ABNORMAL) Hemoglobin A1c (06/15/2024 2:52 PM EST) Hemoglobin A1c 6.1(H) <6.0 % [facility] Comment:Hemoglobin A1C Refer ence Range Adults: 4.8 - 6.0 % Non diabetic: < 6.0 % Goal: < 7.0 %Additional Action Suggested: > 8.0 %Note: Hemoglobin A1c results are invalid for patients with abnormal amounts of HbF. Blood transfusions may impact the HbA1c concentration in the patient sample. Estimated Average Glucose 128 mg/dL [facility] Comment:eAG = Estimated ave rage glucose which is %A1C expressed asaverage glucose, using the formula of the K3M-YzpyuonNfugxuv Glucose study (ADAG), Diabetes Care, Vol.31,#8,Dec. 2007 Blood Venous blood specimen / Unknown 06/15/2024 2:52 PM EST 06/15/2024 5:39 PM EST Jules Lopez MD LAB BLOOD ORDERABL ES Final Result [facility] [address] [place] [phone] * (ABNORMAL) Lipid Panel, Standard (03/25/2024 8:33 AM EST) Triglycerides 233(H) <150 mg/dL [facility] Comment:Slight Lipemia.Claudette able Triglyceride: less than 150 mg/dLBorderline High Triglyceride 150-199 mg/dLHigh Triglyceride: 200-499 mg/dLVery High Triglyceride: greater than or equal to 5OO mg/dL Cholesterol 180 <200 mg/dL [facility] Comment:Desirable Cholestero l: less than 200 mg/dLBorderline High Cholesterol: 200-239 mg/dLHigh Cholesterol: greater than 239 mg/dL LDL Cholesterol Calculated 82 <100 mg/dL [facility] Comment:Desirable LDL: less than 100 mg/dLNear Optimal/Above Optimal LDL: 110- 129 mg/dLBorderline High LDL: 130-159 mg/dLHigh LDL: 160-189 mg/dLVery High LDL: greater than or equal to 190 mg/dL HDL Cholesterol 52 >40 mg/dL [facility] Comment:Desirable HDL: great er than 40 mg/dL Note: This HDL assay may give artificially low results in patients with liver disease. Blood Venous blood specimen / Unknown 03/25/2024 8:33 AM EST 03/25/2024 2:19 PM EST Jules Lopez MD LAB BLOOD ORDERABL ES Final Result [facility] [address] [place] [phone] [phone] * Hm Colonoscopy (07/05/2023 8:17 AM EST) Fredy Cadet MD HEALTH MAINTENANCE Final Result * HIV-1 RNA, Quantitative, Real-Time PCR with Reflex to Genotype (RTI, PI, Integrase) (07/30/2022 9:03 AM EDT) Pathologist [facility] HIV 1 RNA, QN PCR NOT DETECTED copies/mL [facility], HIV 1 RNA, QN PCR NOT DETECTED Log copies/mL [facility], Comment: REFERENCE RANGE: NOT DETECTED copies/mL NOT DETECTED Log copies/mL This test was performed using Real-Time Polymerase Chain Reaction. Reportable range is 20 to 10,000,000 copies/mL (1.30-7.00 Log copies/mL). 07/30/2022 9:03 AM EDT 07/30/2022 9:03 AM EDT Narrative [facility] - 08/02/2022 7:14 PM EDT FASTING:YES FASTING: YES Jules Lopez MD LAB BLOOD ORDERABL ES Final Result [facility] [address], [place] [address] [facility], [address] [place] [address] * Hepatitis C Antibody with Reflex to HCV, RNA, Quantitative, Real-Time PCR (07/30/2022 9:03 AM EDT) Hepatitis C Antibody NON-REACT KELLY NON-REACT KELLY [facility] [place] [facility] Index 0.05 <1.00 [facility] 360 Comment: HCV antibody was non-reactive. There is no laboratory evidence of HCV infection. In most cases, no further action is required. However, if recent HCV exposure is suspected, a test for HCV RNA (test code 01156) is suggested. For additional information please refer to http://education.allGreenup/faq/AFB09m5 (This link is being provided for informational/ educational purposes only.) Blood Venous blood specimen / Unknown 07/30/2022 9:03 AM EDT 07/30/2022 9:03 AM EDT Narrative [facility] - 08/02/2022 7:14 PM EDT FASTING:YES FASTING: YES us Jules Lopez MD LAB BLOOD ORDERABL ES Final Result [facility] [address], [place] [address] [facility] [place] [facility] [address] [place] [address] from Last 3 Months or Most Recently Relevant to Health Maintenance Insurance [facility] ONE CARE < 65 FABY LUND [id number] DENTAL - [facility] Care Teams Administrative Supervisor Relationship Specialty Start Date End Date Jules Escalona MD [address] [place] [address] [place] [address] PCP - General Internal Medicine 09/07/19
--- OUTSIDE RECORDS SUMMARY | 2025-02-10 09:42 | XMS_ITS | Clinical Summary ---
Author Organization [facility] Address [address] [place] [address] Phone Care Team Providers Care Soft Tile Setter Name Role Phone Jules Escalona Primary Care [...] Health Maintenance Due Date Last Done Comments Colorectal Cancer Screening: Colonoscopy 1960 Hepatitis A Vaccines (1 of 2 - Risk 2-dose series) 08/19/1979 Pneumococcal Vaccine: 50+ Years (2 of 2 - PCV) 03/08/2017 03/08/2016 RSV Immunization Adult Patients (1 - Risk 60-74 years 1-dose series) 2020 HIV Screening 02/14/2024 Social Influencers of Health [...] patient's age to complete this topic [place] [address] [place] [address] [place]ICA[place]UN[place] [id number] Care Teams Soft Tile Setter Relationship Specialty Start Date End Date Jules Escalona [address] [place], [place] PCP - General 01/02/24
--- OUTSIDE RECORDS SUMMARY | 2025-02-10 09:42 | XMS_ITS | Encounter Summary ---
Author Organization [employer] Address 75 [facility] 7t [place] [address] Care Team Providers Care Medical Officer Name Role Phone Jules Escalona MD Primary Care Prov ider Reason for Visit * Reason Onset Date Comments left small partial in office 01/31/2023 Encounter Details Date Type Department Care Team ([facility] st Contact Info) Description 01/31/2023 Telephone [facility] [address] [place] [address] Aston Espinoza DDS [address] [place] [address] left small partial in office Social History [...] documented as of this encounter Care Teams Medical Officer Relationship Specialty Start Date End Date Jules Escalona MD [address] [place] [address] PCP - General Internal Medicine 09/07/19 documented as of this encounter
--- OUTSIDE RECORDS SUMMARY | 2025-02-10 09:43 | XMS_ITS | Encounter Summary ---
Author Organization [employer] Address [address] [facility] [address] 7[address] [place] [address] Care Team Providers Care Order Filler Name Role Phone Jules Escalona MD Primary Care Prov ider Encounter Details Date Type Department Care Team ([facility] Contact Info) Description 08/29/2023 Orders Only [facility] [address] [place] [address] ProviderFredy MD Social History Tobacco Use Types [...] documented as of this encounter Care Teams Order Filler Relationship Specialty Start Date End Date CarcamoJules Huff MD [address] [place] [address] PCP - General Internal Medicine 09/07/19 documented as of this encounter
--- OUTSIDE RECORDS SUMMARY | 2025-02-10 09:43 | XMS_ITS | Encounter Summary ---
Author Organization [employer] Address 75 [facility] 7 [place] [address] Care Team Providers Care Animal Behaviorist Name Role Phone Jules Escalona MD Primary Care Prov ider Reason for Visit * Reason Comments Med Refill Encounter Details Date Type Department Care Team ([facility] Contact Info) Description 10/15/2023 Refill [facility] MED & PEDS [address] [place] [address] Jules Escalona MD [address] [place] [address] Delayed gastric emptying Social History Tobacco Use [...] documented as of this encounter Care Teams Animal Behaviorist Relationship Specialty Start Date End Date Jules Escalona MD [address] [place] [address] PCP - General Internal Medicine 09/07/19 documented as of this encounter
--- OUTSIDE RECORDS SUMMARY | 2025-02-10 09:43 | XMS_ITS | Encounter Summary ---
Author Organization [employer] Address 75 [facility] 7t [place] [address] Care Team Providers Care Saddle Tree Stitcher Name Role Phone Jules Escalona MD Primary Care Prov ider Encounter Details Date Type Department Care Team ([facility] Contact Info) Description 08/10/2022 Orders Only [facility] MED & PEDS [address] [place] [address] Jules Escalona MD [address] [place] [address] Social History Tobacco Use Types Packs/Day Years [...] documented as of this encounter Care Teams Saddle Tree Stitcher Relationship Specialty Start Date End Date Jules Escalona MD [address] [place] [address] PCP - General Internal Medicine 09/07/19 documented as of this encounter
--- OUTSIDE RECORDS SUMMARY | 2025-02-10 09:43 | XMS_ITS | Encounter Summary ---
Author Organization [employer] Address 75 [facility] 7t [place] [address] Care Team Providers Care Load Out Supervisor Name Role Phone Jules Escalona MD Primary Care Prov ider Reason for Visit * Reason Comments Med Refill Encounter Details Date Type Department Care Team ([facility] st Contact Info) Description 11/12/2024 Refill [facility] [address] [place] [address] Jules Escalona MD [address] [place], [place] [phone] Social History Tobacco Use Types Packs/Day Years [...] documented as of this encounter Care Teams Load Out Supervisor Relationship Specialty Start Date End Date Jules Escalona MD [address] [place] [address] PCP - General Internal Medicine 09/07/19 documented as of this encounter
--- OUTSIDE RECORDS SUMMARY | 2025-02-10 09:43 | XMS_ITS | Encounter Summary ---
Author Organization [employer] Address 75 [facility] 7t [place] [address] Care Team Providers Care Practice Performance Manager Name Role Phone Jules Escalona MD Primary Care Prov ider Reason for Visit * Reason Comments Med Refill Encounter Details Date Type Department Care Team ([facility] st Contact Info) Description 01/11/2025 Refill [facility] MED[facility] [address] [place] [address] Jules Escalona MD [address] [place], [place] [phone] Recurrent major depressive disorder, in partial remission [...] documented as of this encounter Care Teams Practice Performance Manager Relationship Specialty Start Date End Date Jules Escalona MD [address] [place] [address] PCP - General Internal Medicine 09/07/19 documented as of this encounter
--- OUTSIDE RECORDS SUMMARY | 2025-02-10 09:43 | XMS_ITS | Encounter Summary ---
Author Organization [employer] Address [address] [place] [address] [address] [place] [address] Care Team Providers Care Thread Weaver Name Role Phone Jules Escalona MD Primary Care Prov ider Reason for Visit * Reason Onset Date Comments Nurse Triage 11/06/2022 Encounter Details Date Type Department Care Team ([facility] Contact Info) Description 11/06/2022 Telephone [facility]S [address] [place] [address] Jules Escalona MD [address] [place] [address] Nurse Triage Social History Tobacco Use Types [...] 4:04 PM EDT Triage call with [place] Clerk [place] [id number] Pt reports blood pressure is up and [...] Getting worse The caller accepted this outcome (Nepali speaker) documented in this encounter Plan of Treatment Not on file documented as of this encounter Visit Diagnoses Not on filedocumented in this encounter Additional Health Concerns Assessment Noted Time PHQ-9 Depression Total Score: 5 07/31/19 23 8:54 AM EDT documented as of this encounter Care Teams Thread Weaver Relationship Specialty Start Date End Date Jules Escalona MD [address] [place] [address] PCP - General Internal Medicine 09/07/19 documented as of this encounter
--- OUTSIDE RECORDS SUMMARY | 2025-02-10 09:43 | XMS_ITS | Encounter Summary ---
Author Organization [employer] Address [address] [place] [address] 7 [place] [address] Care Team Providers Care Camp Head Counselor Name Role Phone Jules Escalona MD Primary Care Prov ider Encounter Details Date Type Department Care Team (Latest Contact Info) Description 04/29/2019 Abstract [facility] CONVERSIONS Dental, Provider, DDS Social History [...] on filedocumented in this encounter Care Teams Camp Head Counselor Relationship Specialty Start Date End Date Jules Escalona MD [address] [place] [address] PCP - General Internal Medicine 09/07/19 documented as of this encounter
--- OUTSIDE RECORDS SUMMARY | 2025-02-10 09:43 | XMS_ITS | Encounter Summary ---
Author Organization [email or web address] Address 75 [facility] 7 [place] [address] Care Team Providers Care Tonal Regulator Name Role Phone Jules Escalona MD Primary Care Prov ider Reason for Visit * Reason Comments Med Refill Encounter Details Date Type Department Care Team ([facility] Contact Info) Description 06/23/2023 Refill [facility] MED & PEDS [address] [place] [address] Margie Martínez MD [address] [place] [address] Irritable bowel syndrome with both constipation and [...] documented as of this encounter Care Teams Tonal Regulator Relationship Specialty Start Date End Date Jules Escalona MD [address] [place] [address] PCP - General Internal Medicine 09/07/19 documented as of this encounter
--- OUTSIDE RECORDS SUMMARY | 2025-02-10 09:43 | XMS_ITS | Encounter Summary ---
Author Organization [employer] Address [address] [place] [address] 7t [place] [address] Care Team Providers Care Community Engagement Specialist Name Role Phone Jules Escalona MD Primary Care Prov ider Encounter Details Date Type Department Care Team (Latest Contact Info) Description 01/23/2022 Abstract [facility] CONVERSIONS Dental, Provider, DDS Social History Tobacco [...] on filedocumented in this encounter Care Teams Community Engagement Specialist Relationship Specialty Start Date End Date Jules Escalona MD [address] [facility] [place] [address] PCP - General Internal Medicine 09/07/19 documented as of this encounter
--- OUTSIDE RECORDS SUMMARY | 2025-02-10 09:43 | XMS_ITS | Encounter Summary ---
Author Organization [employer] Address [address] [facility] [address] [place] [address] Care Team Providers Care Commercial Representative Name Role Phone Jules Escalona MD Primary Care Prov ider Encounter Details Date Type Department Care Team ([facility] Contact Info) Description 10/14/2023 Telephone [facility] ADULT DENTAL [address] [place] [address] Sherine Ramirez DMD Social History Tobacco Use [...] documented as of this encounter Care Teams Commercial Representative Relationship Specialty Start Date End Date Jules Escalona MD [address] [place] [address] PCP - General Internal Medicine 09/07/19 documented as of this encounter
--- OUTSIDE RECORDS SUMMARY | 2025-02-10 09:43 | XMS_ITS | Encounter Summary ---
Author Organization [employer] Address [address] [facility] 7 [place] [address] Care Team Providers Care Game Moderator Name Role Phone Jules Escalona MD Primary Care Prov ider Reason for Visit * Reason Comments Med Refill Encounter Details Date Type Department Care Team ([facility] Contact Info) Description 09/25/2024 Refill [facility]EDS [address] [place], [place] [phone] Jules Escalona MD [address] [place] [address] Recurrent major depressive disorder, in partial remission [...] documented as of this encounter Care Teams Game Moderator Relationship Specialty Start Date End Date Jules Escalona MD [address] [place] [id number] PCP - General Internal Medicine 09/07/19 documented as of this encounter
--- OUTSIDE RECORDS SUMMARY | 2025-02-10 09:43 | XMS_ITS | Encounter Summary ---
Author Organization [employer] Address [address] [place] [address] 7 [place] [address] Care Team Providers Care Commercial Census Taker Name Role Phone Jules Escalona MD Primary Care Prov ider Encounter Details Date Type Department Care Team (Latest Contact Info) Description 04/15/2020 Abstract [facility] CONVERSIONS Dental, Provider, DDS Social History Tobacco [...] on filedocumented in this encounter Care Teams Commercial Census Taker Relationship Specialty Start Date End Date Jules Escalona MD [address] [facility] [place] [address] PCP - General Internal Medicine 09/07/19 documented as of this encounter
--- OUTSIDE RECORDS SUMMARY | 2025-02-10 09:43 | XMS_ITS | Encounter Summary ---
Author Organization [employer] Address [address] [facility] 7 [place] [address] Care Team Providers Care Skin Care Specialist Name Role Phone Jules Escalona MD Primary Care Prov ider Reason for Visit * Reason Onset Date Comments Med Refill 10/07/2024 Encounter Details Date Type Department Care Team ([facility] Contact Info) Description 10/07/2024 Telephone [facility] [address] [place] [address] Jules Escalona MD [address] [facility] [address] [place], [place] [phone] Med Refill Social History Tobacco Use Types [...] ondansetron 8 mg To be sent to: [id number] [place], [place] - [address] [place] [address] AT [facility] documented in this encounter Plan of Treatment Not on file documented as of this encounter Visit Diagnoses Not on filedocumented in this encounter Additional Health Concerns Assessment Noted Time PHQ-9 Depression Total Score: 0 09/16/19 25 8:47 AM EDT documented as of this encounter Care Teams Skin Care Specialist Relationship Specialty Start Date End Date Jules Escalona MD [address] [place] [address] PCP - General Internal Medicine 09/07/19 documented as of this encounter
--- OUTSIDE RECORDS SUMMARY | 2025-02-10 09:43 | XMS_ITS | Encounter Summary ---
Author Organization [employer] Address [address] [place] [address] 7[address] [place] [address] Care Team Providers Care Inspector Soldering Name Role Phone Jules Escalona MD Primary Care Prov ider Encounter Details Date Type Department Care Team (Latest Contact Info) Description 02/23/2021 Abstract [facility] CONVERSIONS Dental, Provider, DDS Social [...] on filedocumented in this encounter Care Teams Inspector Soldering Relationship Specialty Start Date End Date Jules Escalona MD [address] [facility] [place] [address] PCP - General Internal Medicine 09/07/19 documented as of this encounter
--- OUTSIDE RECORDS SUMMARY | 2025-02-10 09:43 | XMS_ITS | Encounter Summary ---
Author Organization [employer] Address [address] [facility] 7t [place] [address] Care Team Providers Care Director Of Maternity Services Name Role Phone Jules Escalona MD Primary Care Prov ider Reason for Visit * Reason Comments Med Refill Encounter Details Date Type Department Care Team ([facility] st Contact Info) Description 02/10/2025 Refill [facility] [address] [place] [address] Jules Escalona MD [address] [place], [place] [phone] Seasonal allergies Social History Tobacco Use Types [...] documented as of this encounter Care Teams Director Of Maternity Services Relationship Specialty Start Date End Date Jules Escalona MD [address] [place] [id number] PCP - General Internal Medicine 09/07/19 documented as of this encounter
--- OUTSIDE RECORDS SUMMARY | 2025-02-10 09:43 | XMS_ITS | Encounter Summary ---
Author Organization [employer] Address [address] [facility] 7 [place] [address] Care Team Providers Care Nurse Wound Care Name Role Phone Jules Escalona MD Primary Care Prov ider Reason for Visit * Reason Comments Med Refill Encounter Details Date Type Department Care Team ([facility] Contact Info) Description 06/05/2024 Refill [facility] PEDS [address] [place] [address] Jules Escalona MD [address] [place] [address] Seasonal allergies Social History Tobacco Use Types [...] documented as of this encounter Care Teams Nurse Wound Care Relationship Specialty Start Date End Date Julse Escalona MD [address] [place] [address] PCP - General Internal Medicine 09/07/19 documented as of this encounter
== END 2025-02-10 09:54 | disposition home or self-care (01) ==
PROVIDERS: Visit Provider Internal Medicine
DX: M53.3 Sacrococcygeal disorders, not elsewhere classified (principal)
CPT/HCPCS: 99214

== ENCOUNTER → 2025-02-10 09:02 | Outpatient (BNVA) | payer OTHER, SELFPAY | PROVIDERS: Visit Provider Internal Medicine | DX: M53.3 Sacrococcygeal disorders, not elsewhere classified (principal) | CPT/HCPCS: 99212 ==

== ENCOUNTER 2025-04-09 07:06 | Emergency (ER) | payer OTHER, SELFPAY ==
--- NOTE | ~2025-04-09 | CT_ITS ---
EXAMINATION: CT LUMBAR SPINE WITHOUT IV CONTRAST CLINICAL INFORMATION: lower back pain s/p fall COMPARISON: CT of the lumbar spine on April 28, 2023. Radiographs of the lumbar spine on November 19, 2023. TECHNIQUE: CT of the lumbar spine was obtained without administration of contrast. Axial, sagittal and coronal reconstructions were obtained. This CT examination was performed using dose optimization techniques as appropriate, variously including the following: *Automated exposure control *Adjustment of mA and/or kV according to patient size (this includes techniques or standardized protocols for targeted exams where dose is matched to indication/reason for exam; i.e. extremities or head) *Use of iterative reconstruction technique FINDINGS: Status post posterior fusion at L4-L5. Artifacts from the hardware limits local evaluation. Alignment: Dextrocurvature of the lumbar spine. Grade 1 retrolisthesis of L1 on L2 and L2 on L3. Vertebrae: No compression fracture. Posterior elements are intact. Intervertebral disc spaces: Disc spacer at L4-L5. Remaining disc spaces are maintained. Soft tissues: Prevertebral and posterior paraspinal soft tissues are unremarkable. Other findings: Approximately 0.3 cm nonobstructing stone in the left kidney (6:28/130). Vascular calcifications. Distal colonic diverticula. Level by level analysis: T12-L1: No spinal canal or neuroforaminal stenosis. L1-L2: Bulging disc contributes to mild left neuroforaminal stenosis. No spinal canal or right neuroforaminal stenosis. L2-L3: Bulging disc and marginal osteophytes contributes to bilateral mild neuroforaminal stenosis and mild spinal canal stenosis. L3-L4: Bulging disc and facet arthropathy contributes to moderate right and mild left neuroforaminal stenosis and mild spinal canal stenosis. L4-L5: No spinal canal or neuroforaminal stenosis. L5-S1: No spinal canal or neuroforaminal stenosis. CT/CT lumbar spine wo IV con IMPRESSION: No acute fracture or subluxation. Electronically signed by: Ewa Welch MD 04/09/2025 09:01 AM [facility]
[2025-04-09 07:10] VITALS: BP 149/83; PULSE 85; RESP 20; TEMP 37.2; O2SAT 96; BMI 33.4
--- OUTSIDE RECORDS SUMMARY | 2025-04-09 07:32 | XMS_ITS | Data Portability ---
Author Organization [email or web address], [facility] Address [address] [place] [address] Care Team Providers Care Electric Wheelchair Repairer Name Role Phone [facility] Referring Provider Unavailable Referring Provider Assessment Encounter Date Assessment Date Assessment LastModified by Organization Details LastModified Time 02/01/2022 02/01/2022 Called to assess acute on [...] denies renal issues. 1) CAM ketorolac by equine intern 2) lidocaine gel to pharmacy 3) diclofenac gel to pharmacy 4) [facility] 02/01/2022 18:25:27 08/13/2022 08/13/2022 As noted, we were called to see this patient regarding concerns of chest pain. Evaluation in the field was performed by my equine intern colleague, as noted above, I provided real-time [...] patient had a negative stress test at [facility] several months ago. Despite this, the presentation is still concerning for ACS, PE, or other serious conditions requiring urgent evaluation. Impression: chest pain. Plan: ED evaluation. Disposition: We discussed the situation and I recommended referral to the emergency department. [email or web address] Not available 08/13/2022 18:58:20 11/27/2022 11/27/2022 I provided real -time medical direction via phone for this encounter, and was available for additional phone based assistance as needed. I have reviewed and agree with the Assessment and Plan as documented by the Machine Cementer. Patient given the opportunity to ask questions. [...] is recommended. [email or web address] Not available 11/27/2022 21:45:12 09/08/2024 09/08/2024 I provided real -time medical direction via phone for this encounter, and was available for additional phone based assistance as needed. I have reviewed and agree with the Assessment and Plan as documented by the Machine Cementer. We discussed the diagnostic uncertainty of home visits and the risk associated with this. In this case the patient and I felt this to be an acceptable and reasonable amount of risk given the benefit of avoiding an ED visit. The patient given the opportunity to ask questions. Advised if develops CP, severe SOB, turning blue, uncontrolled n/v/d, AMS or hi fever unresponsive to APAP to call 911- verbalized understanding of instruction [email or web address] Not available 09/08/2024 17:52:14 Plan of Treatment Reminders Order Date Submit Date Provider Last Modified By Organization Details Last Modified Time Details Appointments None recorded. Lab rapid SARS CoV 2 Ag, QL IA, respiratory specimen [address], [id number] 19:08:40 rapid flu (A+B) [address], [phone] 19:08:40 Referral None recorded. Procedures None recorded. Surgeries None recorded. Imaging electrocard iogram 2022 023 [facility], [address] [place] [address], [id number] 4 05:00:54 Medication Orders omeprazole 40 mg capsule,del ayed release 2024 025 [id number], [address] [place] [address], [id number], 5 10:58:18 sucralfate 1 gram tablet 2024 025 [facility] #[id number], [address] [place] [address], [id number], 5 10:58:16 aspirin 325 mg tablet 2022 023 [email or web address] Not available 3 18:58:01 ketorolac 30 mg/mL (1 mL) injection solution 2021 022 [email or web address] Not available 2 18:14:55 Aspercreme (lidocaine HCl) 4 % topical 2021 022 SHARI Not available 2 18:21:17 diclofenac 1 % topical gel 2021 022 SHARI Not available 2 18:21:57 Patient TargetsNo targets recorded. Patient InstructionsNo instructions recorded. Reason for Referral None Reported. Results Created Date Observation Date Name Description Value Unit Range Abnormal Flag Note LastModifiedBy Organization Detail LastModifiedTime 01/11/20 22 01/10/2022 elect rocar diogr am No observ ation record ed. [email or web address] [address], [phone] 01/10/2022 10:43:30 11/28/19 23 11/29/2022 elect rocar diogr am No observ ation record ed. [email or web address] [address], [address] 11/29/2022 10:41:51 Result Notes None recorded. Medical Equipment None Reported. Allergies Allergen ID Allergen Name Allergen Category Reaction Reaction Severity Criticality Documentation Date Start Date Code Code System Note Provider Name and Address Organization Details Recorded Time 18339 tramadol medicatio n Not available Not available Not available 09/08/2024 35966 Rx[facility] Not Available [facility] 5 16:57:49 80680 diphenhyd ramine medicatio n Not available Not available Not available 09/08/2024 3498 RxNorm Not Available [facility] - [facility] 5 16:57:49 11792 phenytoin medicatio n Not available Not available Not available 09/08/2024 8183 RxNorm Not Available [facility] - production 5 16:57:49 20674 buprenorp melissa medicatio n Not available Not available Not available 09/08/2024 1819 RxNorm Not Available [facility] - production 5 16:57:49 Medications Name Sig Start Date Stop Date Status Note LastModified by Organization Details LastModified Time fluoxetine 40 mg capsule TAKE 1 CAPSULE BY MOUTH EVERY DAY IN THE MORNING active Not Available Not Available No t Available cyclobenzapr ine 10 mg tablet TAKE 1 TABLET BY MOUTH THREE TIMES DAILY NEEDED FOR MUSCLE SPASM active Not Available Not Available No t Available amoxicillin 500 mg capsule TAKE 1 CAPSULE BY MOUTH EVERY 8 HOURS active Not Available Not Available No t Available atorvastatin 20 mg tablet TAKE 1 TABLET BY MOUTH EVERY DAY active Not Available Not Available No t Available cetirizine 10 mg tablet TAKE 1 TABLET BY MOUTH IN THE MORNING active Not Available Not Available Not Available sucralfate 1 gram tablet TAKE 1 TABLET BY MOUTH THREE TIMES DAILY FOR 14 DAYS active Not Available Not Available Not Available famotidine 40 mg tablet active Not Available Not Available Not Available prednisone 20 mg tablet TAKE 2 TABLETS BY MOUTH DAILY FOR 5 DAYS active Not Available Not Available N ot Available metronidazol e 250 mg tablet TAKE 1 TABLET BY MOUTH THREE TIMES DAILY FOR 7 DAYS active Not Available Not Available N ot Available omeprazole 40 mg capsule,esdras yed release TAKE 1 CAPSULE BY MOUTH TWICE DAILY FOR 14 DAYS active Not Available Not Available No t Available tramadol 50 mg tablet TAKE 1 TABLET BY MOUTH EVERY 12 HOURS active Not Available Not Available No t Available amitriptylin e 50 mg tablet active Not Available Not Available Not Available acetaminophe n 500 mg tablet TAKE 1 TABLET BY MOUTH EVERY 6 HOURS NEEDED FOR MILD PAIN active Not Available Not Available No t Available famotidine 20 mg tablet TAKE 1 [...] Not Available Not Available No t Available polyethylene glycol 3350 17 gram/dose oral powder TAKE 17 GM BY MOUTH EVERY DAY active Not Available Not Available No t Available morphine 15 mg immediate release tablet TAKE 1 TABLET BY MOUTH EVERY 6 HOURS NEEDED FOR PAIN active Not Available Not Available No t Available ondansetron 4 mg disintegrati ng tablet Place 1 tablet by translingua l route. 2021 active Not Available Not Available Not Avai lable fluticasone propionate 50 mcg/actuatio n nasal spray,suspen jozef INSTILL 1 SPRAY INTO EACH NOSTRIL ONCE DAILY active Not Available Not Available N ot Available oxycodone 5 mg tablet TAKE 1 [...] Not Available Not Available Not Avai lable sodium,potas sium,mag sulfates 17.5 gram-3.13 gram-1.6 gram oral soln MIX AND DRINK DIRECTED active Not Available Not Available No t Available Aspercreme (lidocaine HCl) 4 % topical apply pea sized amount to affected area up to three times daily 2021 active Not Available Not Available Not Avai lable Chest Congestion Relief DM 10 mg-100 mg/5 mL oral syrup TAKE 5 ML BY MOUTH EVERY 4 HOURS FOR UP TO 10 DAYS NEEDED FOR COUGH active Not Available Not Available No t Available Vitals Date Recorded Heart rate Respiratory rate Oxygen saturation Body weight Body temperature Oxygen saturation Respiratory rate Body temperature Heart rate Body weight Systolic And Diastolic Systolic And Diastolic Provider Name and Address Organization Details Last Updated DateTime 3 92 /min 14 /min 97 % 29016.5 6 g 99.3 [degF] 97 % 14 /min 99.3 [degF] 92 /min 80080.5 6 g 114/73 mm[Hg] 114/73 mm[Hg] Not Available [facility] 3 18:47:22 Date Recorded Heart rate Respiratory rate Oxygen saturation Body temperature Systolic And Diastolic Provider Name and Address Organization Details Last Updated DateTime 5 92 /min 18 /min 98 % 97.7 [degF] 128/76 mm[Hg] Not Available [facility] 5 17:44:35 Date Recorded Body weight Heart rate Respiratory rate Body height Oxygen saturation Body temperature Systolic And Diastolic Provider Name and Address Organization Details Last Updated DateTime 5 46488.5 6 g 88 /min 16 /min 162.56 cm 98 % 98.6 [degF] 160/91 mm[Hg] Not Available [facility] 5 10:49:34 Date Recorded Body temperature Body weight Heart rate Respiratory rate Body height Oxygen saturation Systolic And Diastolic Provider Name and Address Organization Details Last Updated DateTime 3 97.6 [degF] 53362.6 g 79 /min 16 /min 162.56 cm 96 % 117/85 mm[Hg] Not Available [facility] 3 21:43:02 Date Recorded Body temperature Heart rate Oxygen saturation Respiratory rate Body weight Body height Systolic And Diastolic Provider Name and Address Organization Details Last Updated DateTime 2 97.9 [degF] 92 /min 97 % 18 /min 16495.5 6 g 162.56 cm 119/81 mm[Hg] Not Available [facility] - production 18:06:29 Social History None recorded. Functional Status None recorded. Mental Status None recorded. Family History Nothing Reported. Medical History No medical history recorded. Past Encounters Encounter ID Performer Location Encounter Start Date Encounter Closed Date Diagnosis/Indication Diagnosis SNOMED-CT Code Diagnosis ICD10 Code Diagnosis IMO Codes Diagnosis Note [id number] Noah Forbes MD [facility] [address] [place], [place] [address] 07/13/2021 13:11:34 12/27/2021 13:01:01 Dry cough 26617245 R05.9 [id number] Antonio Dove MD [facility] [address] [place] [address] 0 09/29/2021 14:41:35 02/13/2022 09:59:05 Chest pain 47938335 R07.9 [id number] Antonio Dove MD [facility] [address] [place], [place] [phone] 01/10/2022 10:28:17 02/13/2022 12:36:46 Chest pain 36124697 R07.9 [id number] Deanne Rod MD [facility] [address] [place] [id number] 02/01/2022 18:06:26 02/06/2022 14:02:54 Musculoskeletal pain 013589243 M79.10 [id number] AGAPITO MYERS MD [facility] [address] [place] [id number] 08/13/2022 18:23:25 08/14/2022 22:49:15 Chest pain 01644139 R07.9 [id number] Odalys Díaz MD [facility] [address] [place] [phone] 11/27/2022 21:42:53 11/28/2022 09:09:55 Palpitations 47610886 R00.2 [id number] ANNEMARIE UCEVAS NP, S [facility] [address] [place], [place] [phone] 09/08/2024 17:39:22 09/08/2024 21:37:14 Acute cough 9035686781 12156471 R05.2 [id number] Viral uppe r respiratory tract infection 927750252 J06.9 261028 Covid/Flu (-). Likely viral resp infection. No CP or SOB. Conservati ve symptom management advised. Stay hydrated, get rest, continue Tylenol prn. If symptoms dont improve in next few days call back for re-eval or be seen in UC- no indication for CXR at this time, LSC, O2 sats 98% no SOB. Afebrile, VSS. [id number] Jason Ambrose MD [facility] [address] [place] [id number] 10/13/2024 10:49:27 10/13/2024 18:10:45 Heartburn 13831824 R12 81995 As noted, we were called to see this patient regarding concerns of heartburn/ epigastric pain. Evaluation in the field was performed by my equine intern colleague, as noted above, I provided real-time direction and supervisio n for this visit. The evaluation revealed reassuring VS and a history of prandial pain, severe, burning-ty pe, soon after eating, and associated with some aversion to eating and 4 lb weight loss over as many weeks. Pain began after stopping medication due to insurance coverage issues. [facility] formulary reviewed and omeprazole is tier 1 with no restrictio ns, others have QL or ST notations. No melena/hem atochezia. Impression :64 yoM with a story c/w gastric ulcer disease vs gastritis. The story is fairly classic for this, especially the endorsed food aversion and the apparent associatio n with d/c of PPI due to PBM restrictio ns, which are demonstrab ly wasteful in this case. Ddx would also include other entities, such as cholelithi asis/gabriel docholithi asis, pancreatic pathology, duodenal ulcer disease, among others. H Pylori would be highly suspected given the severity of the heartburn. This was discussed and pt advised strongly to f/u with PCP to continue evaluation and refill the medication . Plan:Omepr azole 40 mg bid x 14Carafate to soothe irritation /ulceratio n, advised to take separately from other medsStrong ly advised to f/u PCP to continue workup, some risk of malignancy or pre-malign bismark and likely need for testing/tx of H Pylori Primary care, please have a follow up visit and consider H Pylori testing and treatment if positive, as well as EGD or imaging, depending on course Dispositio n: We discussed the diagnostic uncertaint y of home visits and the risk associated with this. In this case, the patient and I felt this to be an acceptable and reasonable amount of risk given the benefit of avoiding an ED visit. We discussed the need to seek care urgently/e mergently in the setting of any new or worsening serious symptoms, particular ly severe pain, weakness, GI bleeding. Health Concerns Section Related Observation LastModified by Organization Detai ls LastModified Time None Recorded Concern Status LastModified by Organization Details LastModified Time None Recorded Advance Directives Directive None Recorded Payers Insurance Date Sequence Insurance Name Policy Number Policy Temple Covered Member ID Temple Member ID Guarantor Name 11/27/2022 1 [facility] - DOS PRIOR TO 2022 - DUAL ELIGIBLE (MEDICARE REPLACEMENT/AD VANTAGE - HMO) Pedrito Fulton [id number] Pedrito Fulton 10/15/2024 1 [facility] - DOS ON OR AFTER 2022 - DUAL ELIGIBLE - SENIOR LIVING OPTIONS AND ONE CARE (MEDICARE REPLACEMENT/AD VANTAGE - HMO) Pedrito Fulton [id number] Pedrito Fulton Notes Date Note Type Note Provider Name and Address Organization Details Recorded Time 02/01/2022 text/html HPI: Member has history of back and leg pain. He went t o the ED on 01/30 with back pain and he was treated . Member said pain is rated 10/10. He has an appointment at pain clinic on February 14. Pleasee see member and evaluate the pain, provide treatment if possible. ...................... ...................... ...................... ...................... ...................... ...................... ......... CRC Nursing Assessment: Comments: CRC RN DID NOT NEED FURTHER INFO Deanne Rod MD [address] [facility],[address], [place], [address], [place] [employer] 02/01/2022 18:25:58 08/13/2022 text/html ROS as noted in the HPI HPI: Member's daughter Lexi called into the CRU in behalf of her father Pedrito. Lexi states that Pedrito is complaining of nausea, dizziness and his BP is elevated. Lexi does not have the recorded BP. she states Pedrito is mostly Latvian speaking. She is asking for an [employer] visit. ...................... ...................... ...................... ...................... ...................... ...................... ......... CRC Nursing Assessment: Comments: RN spoke to member via wheel shop supervisor. BP 91/70 today at 5 min ago. [...] to go to ED member hung up. ...................... ...................... ...................... ...................... ...................... ...................... ......... Machine Cementer Note From Melquiades Rhodes: Pt complains of left anterior chest pain that radiates down his left arm. Pt reports that he was seen at [facility] on 08/10 for the same complaint [...] diagnostic for STEM NSR with no ectopy. [facility] contacted who agreed that pt should be sent back to ED for cardiac work up and 911 was initiated . Pt administered 324 MG ASA PO and pt care was transferred to [facility] for transport back to ED. ...................... ...................... ...................... ...................... ...................... ...................... ......... Disposition: Fulfilled AGAPITO MYERS MD [address] [facility],[address], [place], [address], [email or web address] 08/13/2022 18:58:40 11/27/2022 text/html HPI: anxiety, heart palpatations ...................... ...................... ...................... ...................... ...................... ...................... ......... CRC Nursing Assessment: Comments: Call to member via Child Care Supervisor [phone] for additional information. Member who feels anxious, [...] refuses. Member would like an [facility] visit. ...................... ...................... ...................... ...................... ...................... ...................... ......... Machine Cementer Note From Clive Del Valle: Mobile health [...] with patient . Patient education provided . ...................... ...................... ...................... ...................... ...................... ...................... ......... Disposition: Fulfilled Odalys Díaz MD [address] [place] [address],[address], [place], [address], [facility] [employer] [facility] 11/27/2022 21:46:07 09/08/2024 text/html ROS as noted in the HPI HPI: Call returned to Pedrito Fulton to triage below. Reports having sx of Headache, Body Aches, Cough x 3 weeks. Pt states cough is dry. Pt did not seek care in our office or UC/ER. Pt has not done any home kit for COVID-19. Denies any fever. No recent sick contacts. No travel. No rash. No SOB or CP reported. Pt advised of disposition, agrees to [facility] for evaluation, unable to seek our walk in center. Confirmed demographics and allergies. ...................... ...................... ...................... ...................... ...................... ...................... ......... CRC Nurse Triage Notes (Brent Benites): Reason For Request: SOB Chief Complaints: Headache, Cough PMH: Obesity, Hyperlipidemia, Chronic Back Pain, Gastroesophageal Reflux Disease (GERD) PMH Reviewed at 09/08/2024: Allergies Reviewed at 09/08/2024 - :57 Comments: Reviewed HPI Machine Cementer Organization Information for Jared Huffman Business Legal Name: [employer] Address: [address] [place] [address], Family Support Coordinator: Baldemar PIERSON No.: [id number] Machine Cementer POC Test Results from Jared Huffman Rapid COVID antigen (18:07:03) COVID: - Rapid influenza antigen (18:07:07) Flu: - ...................... ...................... ...................... ...................... ...................... ...................... ......... Machine Cementer Note From Jared Huffman: SC12 dispatched to the address listed above for the report of a male republican with flu like symptoms. Arrival on scene, patient found inside apartment seated in chair, alert and oriented x4, patent airway, breathing non labored speaking in complete sentences, skin WPD in no immediate distress. +/= Chest rise. -SOB, -CP, -NVD, -Trauma, -Fever. GCS 15. Lung sounds clear in all saldaña. Patient reports that he has been having flu like symptoms for about 2 weeks which include productive cough with yellow sputum, nasal congestion, body aches, headaches. Patient reports he is unsure if he has had a fever as he does not have a thermometer. Patient denies any recent contact with anyone who may be sick. Patient reports that he has been treating himself with Tylenol 500mg 3 times a day along trying his inhaler once but reports no improvement. Patient reports normal food/fluid intake and has been medication compliant. Patient reports that he has not taken any cough medication for other symptoms. Patient vital signs obtained as noted. COVID/FLU POC test performed and negative for all. [facility] consulted, advised patient to continue OTC symptom management such as tylenol and cough medication, and advised patient to continue to get plenty of rest and stay hydrated. Patient was advised to call back in a few days if his symptoms are not improving. Red flags discussed with patient, advised to go to the hospital if condition worsens with symptoms such as chest pain, difficulty breathing, fevers uncontrolled with Tylenol etc. SC12 clear. [facility] Lab Orders: rapid SARS CoV 2 Ag, QL IA, respiratory specimen: Performed rapid flu (A+B): Performed ...................... ...................... ...................... ...................... ...................... ...................... ......... [facility] Consulted: Annemarie Cuevas ...................... ...................... ...................... ...................... ...................... ...................... ......... Disposition: Basilio CUEVAS NP, S [address] [facility],[address], [place], [address], [employer] 09/08/2024 18:10:59 10/13/2024 text/html HPI: HX: Chest pain due to GERD, chronic back pain chronic pericarditis, delayed gastric empyting.3 Week history of upper abdomen/chest pain non radiating. Has been waking at 4 am and is no longer taking meds for GERD ...................... ...................... ...................... ...................... ...................... ...................... ......... CRC Nurse Triage Notes (Kristie Ray): Reason For Request: chest pain / abd pain Chief Complaints: Chest Pain, Abdominal Pain PMH: Obesity, Hyperlipidemia, Chronic Back Pain, Gastroesophageal Reflux Disease (GERD) PMH Reviewed at 10/13/2024 - 10:23 Allergies Reviewed at 10/13/2024 - 10:23 Comments: HPI reviewed Machine Cementer Organization Information for [employer] Legal Name: [facility] Transportation Address: [address] [place] [address], Family Support Coordinator: Elpidio Johnson MD CLIA No.: [id number] Machine Cementer POC Test Results from [employer] EKG (10:46:46) EKG test performed. Attachments uploaded as part of this test result can be found under Documents section. ...................... ...................... ...................... ...................... ...................... ...................... ......... Machine Cementer Note From Barrera Garza: This 64-year-old male with a history including but not limited to obesity, HLD, GERD, depression requested a visit today to address three weeks of ongoing acid reflux symptoms scribed as a burning in his chest especially after eating. Patient states he's lost approximately 4 pounds time span because he's afraid to eat. Patient states he used to be on a medication to control his GERD, however insurance wouldn't pay for it anymore and he's been without it for approximately four months. Patient denies any associated shortness of breath, headaches, dizziness, fevers, nausea, vomiting, diarrhea. Allergy list on file is confirmed. Patient presents awake and alert, in no acute distress and speaking full sentences. His vital signs are reasonably stable and he is afebrile. Nonfocal neurological exam. Normal gait. Lungs are clear throughout auscultation. Abdomen is soft, nontender, nondistended. No lower extremity edema. Unremarkable EKG is uploaded. I treated with omeprazole 40 mg. We discussed the diagnostic uncertainty of home visits and the risk associated with this. In this case, the patient and I felt this to be an acceptable and reasonable amount of risk given the benefit of avoiding an ED visit. I provided education on the patient's prescriptions as well as additional OTC/supportive care therapy. I instructed him to follow up with his PCP today or an ROSEMARY appointment rule out ulcer and to have his medication continued. I also instructed him to present to the emergency department for any new or worsening severe symptoms such as severe chest pain, shortness of breath, high fever, altered mental status. The patient was given the opportunity to ask questions and is agreeable to this plan. ...................... ...................... ...................... ...................... ...................... ...................... ......... [facility] [place]ed: Tarun Ambrose ...................... ...................... ...................... ...................... ...................... ...................... ......... Disposition: Fulfilled Jason Ambrose MD [address] [facility],[address], [place], [address], DINORAH - ABDELRAHMAN BAUER 10/13/2024 14:08:09
--- OUTSIDE RECORDS SUMMARY | 2025-04-09 07:32 | XMS_ITS | Clinical Summary ---
Author Organization [facility] Address [address] [place] [address] Phone Care Team Providers Care Circular Saw Operator Name Role Phone Jules Escalona Primary [...] (2 of 2 - PCV) 03/08/2017 03/08/2016 HIV Screening 02/14/2024 Social Influencers of Health Screening 02/14/2024 Depression Screening 05/13/2024 COVID-19 Vaccine (3 - 2024- season) 2025 05/03/2021, 10/04/2020 Influenza Vaccine (#1) 2025 , 06/21/2023, 08/03/2022, Additional history exists DTaP,Tdap,and Td Vaccines (3 - Td or Tdap) 04/02/2027 04/02/2017, 11/19/2016 Cholesterol Screening (Lipid Panel) 06/21/2028 06/21/2023 RSV Immunization Adult Patients (1 - 1-dose 75+ series) 08/19/2035 Hepatitis C Screening Completed 07/30/2022 Zoster Vaccines [...] patient's age to complete this topic Insurance [facility] MEDICAID Care Teams Circular Saw Operator Relationship Specialty Start Date End Date Jules Escalona [address] [place] [address] PCP - General 01/02/24
[2025-04-09] MEDS: Lidocaine 4 % Patch ADH..PATCH 1 PATCH TRANSDERMA (07:39)
[2025-04-09 07:44] LABS: MANUAL DIFF FLAG NO
[2025-04-09 07:45] LABS: Hematocrit 40.1 % (42.0-52.0); Hemoglobin 13.9 g/dl (14.0-18.0); Imm Gran Abs Auto 0.02 X10*3/uL (0.00-0.03); Imm Gran Pct Auto 0.3 % (0.0-0.4); Lymphocytes Absolute Auto 2.2 X10*3/uL (1.2-4.9); Mean Corpuscular HGB Conc 34.7 g/dl (31.0-36.0); Mean Corpuscular Hemoglobin 32.7 pg (27.0-33.0); Mean Corpuscular Volume 94.4 fL (80.0-98.0); NRBC Abs Auto 0.000 X10*3/uL (0.0-0.012); NRBC Pct Auto 0.0 /100WBC (0.0-0.2); Platelet Count 224 X10*3/uL (160-400); Red Blood Count 4.25 X10*6/uL (4.60-5.80); White Blood Count 7.2 X10*3/uL (4.8-10.8)
--- NOTE | 2025-04-09 07:45 | ED.GENADULT ---
HPI - General Adult General Chief complaint: Fall Stated complaint: Fall Time Seen by Provider: 04/09/25 07:08 Source: patient Mode of arrival: ambulatory Limitations: no limitations History of Present Illness ED Provider: FABY Whelan HPI narrative: Chief Complaint: ?Severe low back pain after a fall yesterday.? History of Present Illness: 64-year-old male with a history of chronic back pain, sacroiliitis, prior lumbar fusion, and bilateral knee pain presents after a fall yesterday. While standing, his knees ?gave out,? causing him to land on his buttocks/lower back, and he reports his low back hit the toilet seat. He denies loss of consciousness, head or neck strike, or chest impact. Since the fall, his low-back pain has acutely worsened and is now rated 10/10, significantly limiting ambulation and self-care at home. Chronic back pain has been present for months but has worsened over the last two days since the fall. He lives alone and is finding it increasingly difficult to manage daily activities. He is taking gabapentin 800 mg three times daily with minimal relief. He previously received bilateral knee gel injections on 10/29 and was prescribed Celebrex, which he is not currently taking. He is not on anticoagulation. Related Data Home Medications ?Medication ?Instructions ?Recorded ?Confirmed dicyclomine 20 mg tablet 1 tab PO TID 04/20/20 04/09/25 fluoxetine 40 mg capsule 1 cap PO QAM 04/20/20 04/09/25 gabapentin 800 mg tablet 1 tab PO TID 04/20/20 04/09/25 trazodone 150 mg tablet 1 tab PO BEDTIME 04/20/20 04/09/25 atorvastatin 40 mg tablet 40 mg PO DAILY 08/13/22 04/09/25 cetirizine 10 mg tablet 10 mg PO QAM 12/23/23 04/09/25 fluticasone propionate 50 1 spray intranasal DAILY 12/23/23 04/09/25 mcg/actuation nasal spray,suspension ondansetron 8 mg disintegrating 8 mg PO TID 12/23/23 04/09/25 tablet vonoprazan 10 mg tablet (Voquezna) 10 mg PO DAILY 12/17/24 04/09/25 Previous Rx's ?Medication ?Instructions ?Recorded celecoxib 200 mg capsule 200 mg PO BID #180 caps 03/09/25 morphine 15 mg immediate release 15 mg PO Q6H PRN severe pain 04/12/25 tablet (scale score 7-10) #7 tabs Allergies Allergy/AdvReac Type Severity Reaction Status Date / Time phenytoin (From DILANTIN) Allergy Intermediate NAUSEA Verified 04/09/25 07:10 buprenorphine (Belbuca) Allergy Unknown nausea Verified 04/09/25 07:10 tramadol (TRAMADOL) Allergy Unknown UNABLE TO Verified 04/09/25 07:10 SLEEP , AGITATION, restless leg syndrome diphenhydramine Allergy RLS, Verified 04/09/25 07:10 shaky,agitation benafdryl Allergy Unknown Uncoded 04/09/25 07:10 Review of Systems Review of Systems: Review of Systems: ? Musculoskeletal: Positive for severe low-back pain, difficulty walking. ? Neurologic: Denies loss of consciousness; no saddle anesthesia reported. ? Constitutional: Reports feeling uncomfortable and in severe pain. ? Other systems: Not specifically discussed. Yes all other systems are reviewed and are negative PMFSH Past Medical History Attestation statement: The following information was validated with the patient. Source: old records reviewed and nursing notes reviewed Medical History History of adenomatous polyp of colon Tubular adenoma of colon Colon cancer screening Chronic abdominal pain Anxiety Hyperlipidemia Chronic back pain Chronic pain Surgical History History of colonoscopy with polypectomy (11/29/23) History of colonoscopy History of back surgery H/O colonoscopy Hx of abdominal surgery Social History Social History Are you a primary health care marketing specialist to a significant other at home: No Do you presently have visiting nurse or other home services: Yes ([employer] 51 hours per month) Alcohol intake: never Comment: trying to sleep Patient Tobacco Use Status: Former Tobacco user Tobacco use type: Cigarette Smoked in Last 30 Days: No Second Hand Smoke Exposure: No Use of substances other than those prescribed or required for medical reasons: No Advance Directives: Yes Advance Directives on File: Yes Advance Directives Date on File: 04/12/25 service: No Current occupational status: unemployed and disabled Current occupation: Right handed Physical Exam ED Exam Exam: Physical Exam: General: Appears uncomfortable, in pain. Back: Marked lumbosacral tenderness to palpation bilaterally; midline tenderness at L4-L5; positive straight-leg raise bilaterally. Extremities: Difficulty with ambulation due to pain; normal strength in upper extremities. Neurologic: Cranial nerves II?XII intact; no saddle anesthesia. Cardiovascular: Regular rate and rhythm. Respiratory: Lungs clear to auscultation bilaterally. Vital Signs: Vital Signs - 24 hr 04/11/25 14:00 04/11/25 21:39 04/12/25 05:46 Temperature 97.7 F 97.1 F 97.6 F Pulse Rate 70 76 80 Respiratory Rate 18 18 18 Blood Pressure 111/68 111/69 97/69 Pulse Oximetry 98 94 98 Oxygen Delivery Method Room Air Room Air Room Air 04/12/25 08:15 Temperature Pulse Rate 83 Respiratory Rate 20 Blood Pressure 106/71 Pulse Oximetry Oxygen Delivery Method BMI result Body Mass Index 33.4 vss Course Reevaluation(s) Reevaluation #1: CBC with normocytic anemia appears to be around baseline. Chemistry no acute findings needing intervention. BUN and creatinine appear to be slightly bumped however around patient's baseline. No acute findings. UA without infection. Patient's CT lumbar spine with no acute fracture subluxations noted. Did respond well to pain medicines. Patient does not feel comfortable to return back home. There is no red flag symptoms to warrant an emergent MRI he should follow-up with outpatient providers/spine provider At this time patient to be placed into observation to allow more time to be seen by PT and case management. P.r.n. medications ordered. Time: 13:22 Reevaluation #2: Time: 09:27 Date: 04/10/25 Provider: Rachid Monge PA-C Patient in physican observation for case management needs. No acute events overnight reported by nursing. Patient states he has acid reflux after drinking coffee and eating breakfast and is requesting antacid, patient denies chest pain, SOB, or difficulty breathing. I went down to see the patient and do cardiac exam which reveals regular rate, rhythm without murmurs, rubs or gallops, patient appears comfortable in the hospital bed. 40mg omeprazole ordered for the patient. Currently awaiting insurance authorization for STR placement. Will reassess for improvement of symptoms. 5:50 PM 04/11/2025 (Aimee Lee INDUSTRIAL HYGIENE ENGINEER): Physician observation continued, no overnight events reported by nursing. CM following for disposition, likely to [facility] pending insurance authorization. Vitals stable. Time: 13:40 Date: 04/12/25 Provider: FABY Foster Patient in physician observation for case management needs. No acute events reported overnight.? No current issues or complaints. VS stable. Time: 13:41 Date: 04/12/25 Provider: FABY Foster Physician observation ended at 1341. Patient will be discharged to [facility] via BLS at 3:00 p.m. this afternoon. Patient given prescription for morphine. Medications Administered Generic Name Dose Route Start Last Admin Trade Name Freq PRN Reason Stop Dose Admin Acetaminophen 650 mg 04/09/25 12:16 04/12/25 03:03 Acetaminophen 325 Mg Tablet PO 650 mg Q6H PRN Administration Pain, Mild 1-3,fever,headache Atorvastatin Calcium 40 mg 04/10/25 09:00 04/12/25 08:18 Atorvastatin Calcium 40 Mg Tablet PO 40 mg DAILY HUANG Administration Celecoxib 200 mg 04/10/25 09:00 04/12/25 08:18 Celecoxib 200 Mg Capsule PO 200 mg BID HUANG Administration Dicyclomine HCl 20 mg 04/10/25 09:00 04/12/25 08:18 Dicyclomine Hcl 10 Mg Capsule PO 20 mg TID HUANG Administration Docusate Sodium 100 mg 04/09/25 12:16 04/11/25 19:46 Docusate Sodium 100 Mg Capsule PO 100 mg BID PRN Administration Constipation Fluoxetine HCl 40 mg 04/10/25 09:00 04/12/25 08:19 Fluoxetine Hcl 20 Mg Capsule PO 40 mg DAILY HUANG Administration Fluticasone Propionate 1 spray 04/10/25 09:00 04/12/25 08:21 Fluticasone Propionate Nasal 16 Gm Weinert NOSTRIL-B 1 spray DAILY HUANG Administration Gabapentin 800 mg 04/09/25 22:45 04/12/25 08:20 Gabapentin 400 Mg Capsule PO 800 mg TID HUANG Administration Loratadine 10 mg 04/10/25 09:00 04/12/25 08:20 Loratadine 10 Mg Tablet PO 10 mg DAILY HUANG Administration Morphine Sulfate 15 mg 04/09/25 12:16 04/12/25 08:21 Morphine Sulfate Immed Release 15 Mg Tablet PO 15 mg Q4H PRN Administration Pain, Severe (Pain Scale 7-10) Omeprazole 40 mg 04/10/25 09:30 04/10/25 09:34 Omeprazole 40 Mg Capsule.Dr PO 40 mg ONCE HUANG Administration Ondansetron HCl 4 mg 04/09/25 12:16 04/11/25 19:46 Ondansetron Odt 4 Mg Tab.Rapdis TRANSLINGU 4 mg Q8H PRN Administration Nausea and Vomiting Senna 8.6 mg 04/09/25 12:16 04/11/25 04:24 Sennosides 8.6 Mg Tablet PO 8.6 mg DAILY PRN Administration Constipation Trazodone HCl 150 mg 04/09/25 22:45 04/11/25 19:46 Trazodone Hcl 50 Mg Tablet PO 150 mg BEDTIME HUANG Administration Discontinued Medications Generic Name Dose Route Start Last Admin Trade Name Freq PRN Reason Stop Dose Admin Hydromorphone HCl 2 mg 04/09/25 11:06 04/09/25 11:19 Hydromorphone Hcl 2 Mg Tablet PO 04/09/25 11:07 2 mg ONCE ONE Administration Lidocaine 1 patch 04/09/25 07:20 04/09/25 07:39 Lidocaine 4 % Patch Adh..Patch TRANSDERMA 04/09/25 07:21 1 patch ONCE ONE Administration Protocol Morphine Sulfate 15 mg 04/09/25 07:48 04/09/25 08:01 Morphine Sulfate Immed Release 15 Mg Tablet PO 04/09/25 07:49 15 mg ONCE ONE Administration Medical Decision Making Medical Decision Making MDM Narrative: 64-year-old male with acute on chronic low-back pain after fall. Exam concerning for possible lumbar spine fracture; cauda equina/cord compression felt unlikely on exam. Problem #1: Acute on chronic low-back pain, rule out lumbar spine fracture Assessment: Severe low-back pain (10/10) after fall yesterday; lumbosacral and midline tenderness, positive SLR bilaterally. No neurologic deficits suggesting cauda equina. Plan: Order CT lumbar spine. Obtain basic laboratory studies and urinalysis. Problem #2: Chronic bilateral knee pain Assessment: History of bilateral knee pain; prior gel injections on 10/29. Not the primary deliver driver of today?s visit but contributes to falls risk. Plan: Note prior gel injections and previous prescription for Celebrex (patient not currently using). No acute intervention today; primary focus on acute back injury. Differential Diagnosis Differential Diagnoses: The differential diagnosis associated with the presentation includes Lumbar spine fracture: Acute worsening of pain after fall, midline tenderness at L4-L5, difficulty ambulating, and severe pain raise concern for fracture. Exacerbation of chronic back pain (spondylosis, sacroiliitis, or failed back syndrome): History of chronic back pain and prior lumbar fusion; pain worsened acutely after trauma. Lumbar disc herniation with possible radiculopathy: Positive straight-leg raise bilaterally may suggest nerve root irritation. Cauda equina syndrome (less likely): No saddle anesthesia or significant neurologic deficits on exam, but should be considered in severe cases. Musculoskeletal contusion/soft tissue injury: Direct trauma to lower back and buttocks could result in soft tissue injury. Spinal epidural hematoma (less likely): Not on anticoagulation and no new neurologic deficits, but monitor for evolving symptoms. Osteomyelitis or discitis (less likely): No fever or systemic symptoms, but consider if infection risk factors or symptoms develop. Referred pain from hip or pelvic injury: Fall mechanism could also cause injury to adjacent structures. Medication-related pain exacerbation or withdrawal: Not currently taking Celebrex; pain may be worsened by lack of anti-inflammatory therapy. Guilliane Bare: unlikley no weakness weakness mostly at the knees. No recent operations injections or stressors Admission/Observation Consideration of admission/observation: Escalation of care including admission/observation considered Lab Data MDM Lab Attestation statement: I reviewed the patient's lab results. 04/09/25 07:38 04/09/25 07:38 Labs: Lab Results 04/09/25 04/09/25 Range/Units 07:38 09:58 WBC 7.2 (4.8-10.8) X10*3/uL RBC 4.25 L (4.60-5.80) X10*6/uL Hgb 13.9 L (14.0-18.0) g/dl Hct 40.1 L (42.0-52.0) % MCV 94.4 (80.0-98.0) fL MCH 32.7 (27.0-33.0) pg MCHC 34.7 (31.0-36.0) g/dl RDW 12.8 (11.0-16.0) % Plt Count 224 (160-400) X10*3/uL MPV 10.3 (9.4-12.4) fL Immature Gran % (Auto) 0.3 (0.0-0.4) % Neut % (Auto) 52.4 (45-73) % Lymph % (Auto) 31.1 (20-40) % Calvert % (Auto) 12.1 H (2-11) % Eos % (Auto) 3.1 (0-4) % Baso % (Auto) 1.0 (0-2) % Lymph # (Auto) 2.2 (1.2-4.9) X10*3/uL Calvert # (Auto) 0.9 (0.1-1.2) X10*3/uL Eos # (Auto) 0.2 (0.0-0.4) X10*3/uL Baso # (Auto) 0.1 (0.0-0.2) X10*3/uL Abs Immat Gran (auto) 0.02 (0.00-0.03) X10*3/uL Absolute Neuts (auto) 3.8 (2.0-8.3) x10*3/uL Absolute Nucleated RBC 0.000 (0.0-0.012) X10*3/uL Nucleated RBC % (auto) 0.0 (0.0-0.2) /100WBC Sodium 143 (135-145) mmol/L Potassium 4.3 (3.3-5.1) mmol/L Chloride 109 H (96-108) mmol/L Carbon Dioxide 25 (22-29) mmol/L Anion Gap 13 (12-20) BUN 20 H (9-16) mg/dL Creatinine 1.10 (0.5-1.4) mg/dL Estim Creat Clear Calc 77.6 Estimated GFR > 60 Random Glucose 114 (60-115) mg/dL Calcium 9.5 (8.4-10.2) mg/dL Magnesium 1.9 (1.6-2.6) mg/dL Total Bilirubin 0.3 (0.0-1.0) mg/dL AST 41 H (5-37) U/L ALT 34 (0-40) U/L Alkaline Phosphatase 77 (39-117) U/L Total Protein 6.9 (6.5-8.0) g/dL Albumin 4.3 (3.5-5.0) g/dL Urine Color Yellow Urine Appearance Clear Urine pH 7.0 (5.0-9.0) Ur Specific [place] 1.010 (1.005-1.025) Urine Protein Negative (Neg-Trace) mg/dL Urine Glucose (UA) Negative (Negative) mg/dL Urine Ketones Negative (Negative) mg/dL Urine Blood Negative (Negative) Urine Nitrite Negative (Negative) Ur Leukocyte Esterase Negative (Negative) Independent Interpretation I performed an independent interpretation of an: CT Scan Radiology Impression Discussion of test interpretation with radiology: I have reviewed the radiologist's reading. External Record Review External record reviewed: Inpatient record, Office record, Outpatient record, Prior outpatient labs, Prior outpatient radiology, Primary care record, Outside ED record and Other Chronic Conditions Patient?s care impacted by: Other (see hpi) Critical Care Time Critical Care Time Critical Care Time: Yes Total Critical Care Time: 35 Attestation: I attest to this time spent taking care of the patient, obtaining history, physical, reviewing labs, imaging, treatment of patients condition +/- specialist/hospitalist consult +/- procedure Discharge Plan Discharge Clinical Impression: Bilateral lumbar radiculopathy, Fall, Chronic knee pain Patient Disposition: Xfer Other Transfer Details: [facility] via BLS at 3PM Instructions: Lumbar Radiculopathy (ED) Additional Instructions: Please continue all at-home medications as prescribed. I am prescribing you a small course of morphine for severe pain. Please be advised that this can cause drowsiness, do not drink alcohol or drive while taking this medication. Please proceed to [facility]. If any new or worsening symptoms occur including but not limited to severe chest pain, shortness of breath, please seek emergent care. Prescriptions: New morphine 15 mg tablet 15 mg PO Q6H PRN (Reason: severe pain (scale score 7-10)) Qty: 7 0RF Rx Instructions: Partial Fill upon patient request. No Action celecoxib 200 mg capsule 200 mg PO BID Qty: 180 0RF fluoxetine 40 mg capsule 1 cap PO QAM gabapentin 800 mg tablet 1 tab PO TID dicyclomine 20 mg tablet 1 tab PO TID trazodone 150 mg tablet 1 tab PO BEDTIME atorvastatin 40 mg Tablet 40 mg PO DAILY cetirizine 10 mg tablet 10 mg PO QAM fluticasone propionate 50 mcg/actuation spray,suspension 1 spray intranasal DAILY ondansetron 8 mg tablet,disintegrating 8 mg PO TID Voquezna 10 mg tablet 10 mg PO DAILY Referrals: [facility] [Outside] Referral Note: [phone] Print Language: Kyrgyz
[2025-04-09 08:00] VITALS: BP 126/72; PULSE 81; RESP 16; TEMP 37.2; O2SAT 97
[2025-04-09 08:01] LABS: Alanine Aminotransferase 34 U/L (0-40); Albumin Level 4.3 g/dL (3.5-5.0); Alkaline Phosphatase 77 U/L (39-117); Anion Gap 13 (12-20); Aspartate Amino Transferase 41 U/L (5-37); Blood Urea Nitrogen 20 mg/dL (9-16); Calcium 9.5 mg/dL (8.4-10.2); Carbon Dioxide 25 mmol/L (22-29); Chloride 109 mmol/L (96-108); Creatinine Clr Calc Pharmacy 77.6; Estimated Glomerular Filt Rate > 60; Magnesium 1.9 mg/dL (1.6-2.6); Potassium 4.3 mmol/L (3.3-5.1); Sodium 143 mmol/L (135-145); Total Protein 6.9 g/dL (6.5-8.0)
[2025-04-09] MEDS: Morphine Sulfate Immed Release 15 MG TABLET PO ×3 (08:01→22:39)
[2025-04-09 10:15] LABS: Appearance Urine Clear; Glucose Urine UA Negative (Negative); PH 7.0 (5.0-9.0); Specific Gravity - Urine 1.010 (1.005-1.025)
[2025-04-09 11:18] VITALS: BP 135/81; PULSE 66; RESP 16; TEMP 36.9; O2SAT 98
[2025-04-09 12:57] VITALS: BP 135/81; PULSE 66; O2SAT 98
--- NOTE | 2025-04-09 14:14 | MHC.CM.ED ---
Met with pt to discuss d/c planning needs: Pt resides in a 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 Pt uses a cane and has [facility] RN CM services once monthly. Reviewed PT eval w/pt and STR recommendations: Pt would like to stay in the [facility] and declined all [place] facilities. Will refer to STR. Pt aware he will need to remain in [facility] until acceptance and payor auth. ED CM to follow.
--- NOTE | 2025-04-09 14:26 | MHC.CM.ED ---
Received consult for assessment of d/c needs: Met w/pt who states he resides alone but has 15 hrs/wk of [employer]OP [employer] care provided by his dtr. She assists w/transportation, meal prep, cleaning. Pt has community RN CM visits from [facility]. PT luciana recommends STR: pt agrees to referrals but is declining facilities in [place]. Will refer to [facility]. Pt aware that he will board in the ED pending acceptance and Payor auth. ED CM to follow.
[2025-04-09 19:24] VITALS: BP 124/76; PULSE 64; RESP 18; O2SAT 99
--- NOTE | 2025-04-09 22:27 | PC.NURSE ---
Pt requesting PM Trazodone to sleep, Med rec completed however Trazodone not ordered. Provider informed. Awaiting orders.
[2025-04-10 00:26] VITALS: RESP 16
--- NOTE | 2025-04-10 00:27 | PC.NURSE ---
Pt sleeping in bed at this time, visible chest rise noted, in NAD, continue to monitor.
[2025-04-10 01:26] VITALS: BP 120/73; PULSE 61; RESP 16; O2SAT 97
[2025-04-10] MEDS: Morphine Sulfate Immed Release 15 MG TABLET PO ×4 (04:56→21:57)
--- NOTE | 2025-04-10 05:12 | PC.NURSE ---
pt awake at this time, requesting coffee and pain medication for back pain. pt medicated per JUL. coffee given and wipes to wash up with per request
[2025-04-10 06:27] VITALS: BP 131/76; PULSE 67; RESP 18; TEMP 36.7; O2SAT 97
--- NOTE | 2025-04-10 07:41 | PC.NURSE ---
Pt will be moving to ED Overflow unit. Call placed to RN for nurse to nurse report.
--- NOTE | 2025-04-10 08:19 | MHC.EDTECH ---
Patient washed up and bed linen changed
--- NOTE | 2025-04-10 12:08 | PHA.MEDREC ---
Pharmacy Consult ? Medication Reconciliation Pharmacy has completed the medication reconciliation.Med rec complete, spoke with patient's daughter and compared with pharmacy claim history
[2025-04-10 14:00] VITALS: BP 110/77; PULSE 87; RESP 18; TEMP 36.6; O2SAT 96
--- NOTE | 2025-04-10 15:37 | MHC.CM.PN ---
[facility] HAS OFFER[facility] A BED PENDING INSURANCE AUTH. CM WILL AWAIT INSURANCE APPROVAL FOR ADMISSION.
[2025-04-10 20:20] VITALS: BP 100/82; PULSE 90; RESP 18; TEMP 36.8; O2SAT 96
[2025-04-10 21:56] VITALS: BP 105/72
[2025-04-11 04:19] VITALS: BP 119/70; PULSE 64; RESP 18; TEMP 36.2; O2SAT 96
[2025-04-11] MEDS: Morphine Sulfate Immed Release 15 MG TABLET PO ×3 (04:24→19:47)
[2025-04-11 14:00] VITALS: BP 111/68; PULSE 70; RESP 18; TEMP 36.5; O2SAT 98
--- NOTE | 2025-04-11 19:51 | PC.NURSE ---
RN assumed care at 1900, pt requested his bed time meds early d/t pain. RN medicated pt per JUL. RN messaged pharmacy as 2 meds are not in the pyxis.
[2025-04-11 21:39] VITALS: BP 111/69; PULSE 76; RESP 18; TEMP 36.2; O2SAT 94
[2025-04-12] MEDS: Morphine Sulfate Immed Release 15 MG TABLET PO ×2 (03:04→08:21)
[2025-04-12 05:46] VITALS: BP 97/69; PULSE 80; RESP 18; TEMP 36.4; O2SAT 98
[2025-04-12 08:15] VITALS: BP 106/71; PULSE 83; RESP 20
--- NOTE | 2025-04-12 09:29 | MHC.CM.ED ---
Patient remains in ER overflow. [facility] is in the process of obtaining ins auth. Copy of HCP requested from [facility]. Patient will need [facility] PASRR Level 2 due to anxiety and outpatient psych services. T/W submitted for this. Continue to monitor for d/c needs.
--- NOTE | 2025-04-12 10:18 | PC.NURSE ---
Pt alert and oriented x4, Pt medicated for 10/10 pain to L hip. He states improvement at this time. He is resting quitly with no s/s distress.
--- NOTE | 2025-04-12 11:13 | PC.NURSE ---
Patient out of bed to bathroom with assistance. Unsteady gait. Awaiting authorization[facility] Awaiting update from facility & case management. Pt aware of plan. Care ongoing by this RN.
--- NOTE | 2025-04-12 13:43 | MHC.CM.ED ---
Insurance auth has been obtained by [facility]. Opal MIRZAS booked for 3pm. Med nec with chart. Patient, Pia NOEL and Lucie HOBBS aware. Continue to monitor for d/c needs.
[2025-04-12 14:00] VITALS: BP 119/71; PULSE 85; RESP 17; TEMP 36.3; O2SAT 94
[2025-04-12 15:29] VITALS: BP 119/71; PULSE 85; RESP 17; TEMP 36.3; O2SAT 94
== END 2025-04-12 15:29 ==
PROVIDERS: Physician Assistant; Emergency Provider Emergency Medicine; PCP Internal Medicine
DX: S39.92XA Unspecified injury of lower back, initial encounter (principal); M54.16 Radiculopathy, lumbar region; M54.50 Low back pain, unspecified; R26.81 Unsteadiness on feet; M25.562 Pain in left knee; M25.561 Pain in right knee; W01.10XA Fall on same level from slipping, tripping and stumbling with subsequent striking against unspecified object, initial encounter; Y93.9 Activity, unspecified; Y92.002 Bathroom of unspecified non-institutional (private) residence as the place of occurrence of the external cause; Y99.8 Other external cause status; Z79.899 Other long term (current) drug therapy; Z87.891 Personal history of nicotine dependence
CPT/HCPCS: 36415; 72131; 80053; 81003; 83735; 85025; 97161; 99285

== ENCOUNTER → 2025-04-09 07:19 | Outpatient (BNV) | payer OTHER, SELFPAY | PROVIDERS: Emergency Provider Emergency Medicine; Visit Provider Radiology Body Imaging | DX: M54.50 Low back pain, unspecified (principal); Z04.3 Encounter for examination and observation following other accident | CPT/HCPCS: 72131 ==

== ENCOUNTER 2025-04-29 06:26 | Outpatient (REF) | payer OTHER, SELFPAY ==
--- NOTE | ~2025-04-29 | FL_ITS ---
EXAMINATION: XR FLUOROSCOPY WITH IMAGES CLINICAL INFORMATION: Sacrococcygeal disorder COMPARISON: None available. TECHNIQUE: Fluoroscopy time: 17 seconds DAP: 5.4 mGy Images: 3 FINDINGS: Fluoroscopy provided for procedure. Images demonstrate needle projected over bilateral SI joints. No radiologist present. FL/FL guidance in treatment room IMPRESSION: Fluoroscopy provided for procedure. See procedure report for details. Electronically signed by: Kt Box MD 04/29/2025 03:22 PM [facility]
--- OUTSIDE RECORDS SUMMARY | 2025-04-29 06:29 | XMS_ITS | Encounter Summary ---
Author Organization [employer] Address [address] [facility] 7 [place] [address] Care Team Providers Care Duco Polisher Name Role Phone Jules Escalona MD Primary Care Prov ider Reason for Visit * Reason Comments Med Refill Encounter Details Date Type Department Care Team ([facility] Contact Info) Description 06/05/[address] [facility] CHC MED & PEDS [address] [place] [address] Jules Escalona MD [address] [place] [address] Seasonal allergies Social History Tobacco Use Types [...] documented as of this encounter Care Teams Duco Polisher Relationship Specialty Start Date End Date Jules Escalona MD [address] [place] [address] PCP - General Internal Medicine 09/07/19 documented as of this encounter
--- OUTSIDE RECORDS SUMMARY | 2025-04-29 06:29 | XMS_ITS | Encounter Summary ---
Author Organization [employer] Address [address] [place] [address] 7 [place] [address] Care Team Providers Care Codifier Name Role Phone Jules Escalona MD Primary Care Prov ider Encounter Details Date Type Department Care Team (Latest Contact Info) Description 04/15/2020 Abstract [facility] CONVERSIONS Dental, Provider, DDS Social [...] on filedocumented in this encounter Care Teams Codifier Relationship Specialty Start Date End Date Jules Escalona MD [address] [place] [address] PCP - General Internal Medicine 09/07/19 documented as of this encounter
--- OUTSIDE RECORDS SUMMARY | 2025-04-29 06:29 | XMS_ITS | Encounter Summary ---
Author Organization [employer] Address [address] [place] [address] 7 [place] [address] Care Team Providers Care Assembler Utility Buildings Name Role Phone Jules Escalona MD Primary Care Prov ider Encounter Details Date Type Department Care Team (Latest Contact Info) Description 01/23/2022 Abstract [facility] CONVERSIONS Dental, Provider, DDS Social [...] on filedocumented in this encounter Care Teams Assembler Utility Buildings Relationship Specialty Start Date End Date Jules Escalona MD [address] [place] [address] PCP - General Internal Medicine 09/07/19 documented as of this encounter
--- OUTSIDE RECORDS SUMMARY | 2025-04-29 06:29 | XMS_ITS | Encounter Summary ---
Author Organization [employer] Address [address] [place] [address] 7 [place] [address] Care Team Providers Care Design/Animation Instructor Name Role Phone Jules Escalona MD Primary Care Prov ider Encounter Details Date Type Department Care Team (Latest Contact Info) Description 04/29/2019 Abstract [facility] CONVERSIONS Dental, Provider, DDS Social History [...] on filedocumented in this encounter Care Teams Design/Animation Instructor Relationship Specialty Start Date End Date Jules Escalona MD 505 [place] [address] PCP - General Internal Medicine 09/07/19 documented as of this encounter
--- OUTSIDE RECORDS SUMMARY | 2025-04-29 06:29 | XMS_ITS | Encounter Summary ---
Author Organization [employer] Address [address] [facility] 7 [place] [address] Care Team Providers Care Needle Loom Operator Name Role Phone Jules Escalona MD Primary Care Prov ider Reason for Visit * Reason Comments Med Refill Encounter Details Date Type Department Care Team ([facility] Contact Info) Description 09/25/2024 Refill [facility] CHC MED & PEDS [address] [place] [address] Jules Escalona MD [address] [place] [address] Recurrent major depressive disorder, in partial remission [...] documented as of this encounter Care Teams Needle Loom Operator Relationship Specialty Start Date End Date Jules Escalona MD [address] [place] [address] PCP - General Internal Medicine 09/07/19 documented as of this encounter
--- OUTSIDE RECORDS SUMMARY | 2025-04-29 06:29 | XMS_ITS | Data Portability ---
Author Organization [employer] Address [address] [place] [address] Care Team Providers Care Senior Manager Quality Assurance Name Role Phone [facility] Referring Provider Unavailable Referring Provider [...] denies renal issues. 1) CAM ketorolac by high school mathematics teacher 2) lidocaine gel to pharmacy 3) diclofenac gel to pharmacy 4) [facility] Not available 02/01/2022 18:25:27 08/13/2022 08/13/2022 As noted, we were called to see this patient regarding concerns of chest pain. Evaluation in the field was performed by my high school mathematics teacher colleague, as noted above, I provided real-time [...] patient had a negative stress test at [facility] several months ago. Despite this, the presentation [...] Assessment and Plan as documented by the Staff Climate Scientist. Patient given the opportunity to ask questions. [...] Assessment and Plan as documented by the Staff Climate Scientist. We discussed the diagnostic uncertainty of home [...] to call 911- verbalized understanding of instruction [email or web address] Not available 09/08/2024 17:52:14 Plan of Treatment Reminders Order Date Submit Date Provider Last Modified By Organization Details Last Modified Time Details Appointments None recorded. Lab rapid SARS CoV 2 Ag, QL IA, respiratory specimen [address], [id number] 19:08:40 rapid flu (A+B) [address], [address] 19:08:40 Referral None recorded. Procedures None recorded. Surgeries None recorded. Imaging electrocard iogram 2022 023 [facility], [address] [place] [address], [id number] 4 05:00:54 Medication Orders omeprazole 40 mg capsule,del ayed release 2024 025 [id number], [address] [place] [address], [id number], 5 10:58:18 sucralfate 1 gram tablet 2024 025 [facility] #[id number], [address] [place] [address], [id number], 5 10:58:16 aspirin 325 mg tablet 2022 [...] am No observ ation record ed. [email or web address] [address], [address] 01/10/2022 10:43:30 11/28/19 23 11/29/2022 elect rocar diogr am No observ ation record ed. [email or web address] [address], [address] 11/29/2022 10:41:51 Result Notes None recorded. Medical Equipment None Reported. Allergies Allergen ID Allergen Name Allergen Category Reaction Reaction Severity Criticality Documentation Date Start Date Code Code System Note Provider Name and Address Organization Details Recorded Time 60053 tramadol medicatio n Not available Not available Not available 09/08/2024 10749 RxNorm Not Available [facility] 5 16:57:49 81110 diphenhyd ramine medicatio n Not available Not available Not available 09/08/2024 3498 RxNorm Not Available [facility] 5 16:57:49 23909 phenytoin medicatio n Not available Not available Not available 09/08/2024 8183 RxNorm Not Available [facility] 5 16:57:49 18347 buprenorp melissa medicatio n Not available Not available Not available 09/08/2024 1819 RxNorm Not Available [facility] - production 5 16:57:49 Medications Name Sig [...] 3 92 /min 14 /min 97 % 19705.5 6 g 99.3 [degF] 97 % 14 /min 99.3 [degF] 92 /min 70387.5 6 g 114/73 mm[Hg] 114/73 mm[Hg] Not Available [employer] [facility] [facility] 3 18:47:22 Date Recorded Heart rate Respiratory rate Oxygen saturation Body temperature Systolic And Diastolic Provider Name and Address Organization Details Last Updated DateTime 5 92 /min 18 /min 98 % 97.7 [degF] 128/76 mm[Hg] Not Available [employer] [facility] [facility] 5 17:44:35 Date Recorded Body weight Heart rate Respiratory rate Body height Oxygen saturation Body temperature Systolic And Diastolic Provider Name and Address Organization Details Last Updated DateTime 5 37954.5 6 g 88 /min 16 /min 162.56 cm 98 % 98.6 [degF] 160/91 mm[Hg] Not Available [facility] 5 10:49:34 Date Recorded Body temperature Body weight Heart rate Respiratory rate Body height Oxygen saturation Systolic And Diastolic Provider Name and Address Organization Details Last Updated DateTime 3 97.6 [degF] 65864.6 g 79 /min 16 /min 162.56 cm 96 % 117/85 mm[Hg] Not Available [facility] [facility] 3 21:43:02 Date Recorded Body temperature Heart rate Oxygen saturation Respiratory rate Body weight Body height Systolic And Diastolic Provider Name and Address Organization Details Last Updated DateTime 2 97.9 [degF] 92 /min 97 % 18 /min 16196.5 6 g 162.56 cm 119/81 mm[Hg] Not [...] 295 Noah Forbes MD Main - [facility] [address] [place], [place] [phone] 07/13/2021 13:11:34 12/27/2021 13:01:01 Dry cough 57533316 R05.9 1698 Antonio Dove MD Main - instED [address] [place] [address] 0 09/29/2021 14:41:35 02/13/2022 09:59:05 Chest pain 36095344 R07.9 3669 Antonio Dove MD Main - instED [address] [place], [place] [phone] 01/10/2022 10:28:17 02/13/2022 12:36:46 Chest pain 18380181 R07.9 4156 Deanne Rod MD Main - instED [address] [place] [address] 02/01/2022 18:06:26 02/06/2022 14:02:54 Musculoskeletal pain 836872751 M79.10 9087 AGAPITO MYERS MD Main - instED [address] [place] [address] 08/13/2022 18:23:25 08/14/2022 22:49:15 Chest pain 89580553 R07.9 95611 Odalys Díaz MD Main - [facility]ED [address] [place] [address] 11/27/2022 21:42:53 11/28/2022 09:09:55 Palpitations 33556009 R00.2 39000 ANNEMARIE CUEVAS NP, S Main - instED [address] [place], [place] [address] 09/08/2024 17:39:22 09/08/2024 21:37:14 Acute cough 0268118109 53326942 R05.8 [id number] Viral uppe r respiratory tract infection 667926743 J06.9 204439 Covid/Flu (-). Likely viral resp infection. No CP or SOB. Conservati ve symptom management advised. Stay hydrated, get rest, continue Tylenol prn. If symptoms dont improve in next few days call back for re-eval or be seen in UC- no indication for CXR at this time, LSC, O2 sats 98% no SOB. Afebrile, VSS. [address] Jason Ambrose MD Main - instED [address] [place] [address] 10/13/2024 10:49:27 10/13/2024 18:10:45 Heartburn 14975770 R12 51782 As noted, we were called to see this patient regarding concerns of heartburn/ epigastric pain. Evaluation in the field was performed by my high school mathematics teacher colleague, as noted above, I provided real-time direction and supervisio n for this visit. The evaluation revealed reassuring VS and a history of prandial pain, severe, burning-ty pe, soon after eating, and associated with some aversion to eating and 4 lb weight loss over as many weeks. Pain began after stopping medication due to insurance coverage issues. [facility] Care formulary reviewed and omeprazole is tier [...] Temple Member ID Guarantor Name 11/27/2022 1 [facility] - DOS PRIOR TO 2022 - DUAL ELIGIBLE (MEDICARE REPLACEMENT/AD VANTAGE - HMO) Pedrito Fulton [id number] Pedrito Fulton 10/15/2024 1 [facility] - DOS ON OR AFTER 2022 - DUAL ELIGIBLE - USP OPTIONS AND ONE CARE (MEDICARE REPLACEMENT/AD VANTAGE - HMO) Pedrito Fulton [id number] Pedrito Fulton Notes Date Note Type Note [...] NEED FURTHER INFO Deanne Rod MD [address] [facility],[address], [place], [address], [place] [employer] 02/01/2022 18:25:58 08/13/2022 text/html ROS as noted in the HPI HPI: Member's daughter Lexi called into the CRU in behalf of her father Pedrito. Lexi states that Pedrito is complaining of nausea, dizziness and his BP is elevated. Lexi does not have the recorded BP. she states Pedrito is mostly Kiswahili speaking. She is asking for an [address] visit. ...................... ...................... ...................... ...................... ...................... ...................... ......... CRC Nursing Assessment: Comments: RN spoke to member via lozenge dough mixer. BP 91/70 today at 5 min ago. HR 105. Left sided chest pain that radiates to epigastric area. Also c/o MAIN and + nausea. Symptoms started last night. A&ox3. Member stated he went to ED for days ago and they told him his heart is fine. This RN advised to go to ED for emergency tx and member refused. While attempting to educate on reason for recommendation to go to ED member hung up. ...................... ...................... ...................... ...................... ...................... ...................... ......... Staff Climate Scientist Note From Melquiades Rhodes: Pt complains of left anterior chest pain that radiates down his left arm. Pt reports that he was seen at [facility] on 08/10 for the same complaint [...] diagnostic for STEM NSR with no ectopy. [facility] contacted who agreed that pt should be sent back to ED for cardiac work up and 911 was initiated . Pt administered 324 MG ASA PO and pt care was transferred to [facility] for transport back to ED. ...................... ...................... ...................... ...................... ...................... ...................... ......... Disposition: Fulfilled AGAPITO MYERS MD [address] [facility],[address], [place], [address], [employer] 08/13/2022 18:58:40 11/27/2022 text/html HPI: anxiety, heart palpatations ...................... ...................... ...................... ...................... ...................... ...................... ......... CRC Nursing Assessment: Comments: Call to member via [employer] [phone] for additional information. Member who feels anxious, [...] ...................... ...................... ...................... ...................... ...................... ...................... ......... Staff Climate Scientist Note From Clive Del Valle: [facility] health [...] ...................... ......... Disposition: Fulfilled Odalys Díaz MD [address] [place] [address],[address], [place], [address], [facility] [employer] [facility] 11/27/2022 21:46:07 09/08/2024 text/html ROS as noted [...] reported. Pt advised of disposition, agrees to [facility] for evaluation, unable to seek our walk in center. Confirmed demographics and allergies. ...................... ...................... ...................... ...................... ...................... ...................... ......... CRC Nurse Triage Notes (Brent Benites): Reason For Request: SOB Chief Complaints: Headache, Cough PMH: Obesity, Hyperlipidemia, Chronic Back Pain, Gastroesophageal Reflux Disease (GERD) PMH Reviewed at 09/08/2024: Allergies Reviewed at 09/08/2024 - :57 Comments: Reviewed HPI Staff Climate Scientist Organization Information for Jared Huffman Business Legal Name: [employer] Address: [address] [place] [address], [employer] Anchor: Baldemar PIERSON No.: [id number] Staff Climate Scientist POC Test Results from Jared Huffman Rapid COVID antigen (18:07:03) COVID: - Rapid influenza antigen (18:07:07) Flu: - ...................... ...................... ...................... ...................... ...................... ...................... ......... Staff Climate Scientist Note From Jared Huffman: SC12 dispatched to the address listed above for the report of a male democrat with flu like symptoms. Arrival on scene, [...] POC test performed and negative for all. [facility] consulted, advised patient to continue OTC symptom [...] fevers uncontrolled with Tylenol etc. SC12 clear. [facility] Lab Orders: rapid SARS CoV 2 Ag, QL IA, respiratory specimen: Performed rapid flu (A+B): Performed ...................... ...................... ...................... ...................... ...................... ...................... ......... [facility] Consulted: Annemarie Cuevas ...................... ...................... ...................... ...................... ...................... ...................... ......... Disposition: Basilio CUEVAS NP, S [address] [facility],[address], [place], [address], [employer] 09/08/2024 18:10:59 10/13/2024 text/html HPI: HX: Chest [...] at 10/13/2024 - 10:23 Comments: HPI reviewed Staff Climate Scientist Organization Information for [employer] Legal Name: [facility] Address: [address] [place] [address], [employer] Anchor: Elpidio Johnson MD CLIA No.: [id number] Staff Climate Scientist POC Test Results from [employer] EKG (10:46:46) EKG test performed. Attachments uploaded as part of this test result can be found under Documents section. ...................... ...................... ...................... ...................... ...................... ...................... ......... Staff Climate Scientist Note From Barrera Garza: This 64-year-old male [...] ...................... ...................... ...................... ...................... ...................... ...................... ......... [facility] Consulted: Tarun Ambrose ...................... ...................... ...................... ...................... ...................... ...................... ......... Disposition: Fulfilled Jason Ambrose MD [address] [facility],[address], [place], [address], [employer] [employer] 10/13/2024 14:08:09
--- OUTSIDE RECORDS SUMMARY | 2025-04-29 06:29 | XMS_ITS | Encounter Summary ---
Author Organization [employer] Address [address] [facility] 7 [place] [address] Care Team Providers Care Tray Setter Name Role Phone Jules Escalona MD Primary Care Prov ider Reason for Visit * Reason Comments Med Refill Encounter Details Date Type Department Care Team ([facility] Contact Info) Description 06/23/2023 Refill [facility] CHC MED & PEDS [address] [place] [address] Margie Martínez MD [address] [place] [address] Irritable bowel syndrome with both constipation and [...] documented as of this encounter Care Teams Tray Setter Relationship Specialty Start Date End Date Jules Escalona MD [address] [place] [address] PCP - General Internal Medicine 09/07/19 documented as of this encounter
--- OUTSIDE RECORDS SUMMARY | 2025-04-29 06:29 | XMS_ITS | Encounter Summary ---
Author Organization [employer] Address [address] [facility] 7t [place] [address] Care Team Providers Care Water Resources Business Segment Leader Name Role Phone Jules Escalona MD Primary Care Prov ider Reason for Visit * Reason Comments Med Refill Encounter Details Date Type Department Care Team ([facility] Contact Info) Description 01/11/2025 Refill [facility] MEDICINE [address] [place] [address] Jules Escalona MD [address] [place], [place] [phone] Recurrent major depressive disorder, in partial remission [...] as of this encounter Care Teams Water Resources Business Segment Leader Relationship Specialty Start Date End Date Jules Escalona MD [address] [place] [address] PCP - General Internal Medicine 09/07/19 documented as of this encounter
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
--- OUTSIDE RECORDS SUMMARY | 2025-04-29 06:29 | XMS_ITS | Encounter Summary ---
Author Organization [employer] Address [address] [facility] [address] 7[address] [place] [address] Care Team Providers Care Revenue Director Name Role Phone Jules Escalona MD Primary Care Prov ider Encounter Details Date Type Department Care Team (Late st Contact Info) Description 08/29/2023 Orders Only [facility] MEDICINE [address] [place] [address] ProviderFredy MD Social History Tobacco Use Types [...] documented as of this encounter Care Teams Revenue Director Relationship Specialty Start Date End Date Jules Escalona MD [address] [place] [address] PCP - General Internal Medicine 09/07/19 documented as of this encounter
--- OUTSIDE RECORDS SUMMARY | 2025-04-29 06:29 | XMS_ITS | Clinical Summary ---
Author Organization [address] [facility] Address [address] [place] [address] Phone Care Team Providers Care Bead Trimmer Name Role Phone Jules Escalona Primary Care [...] Encounters Date Type Department Care Team Description 04/19/2025 Lab Requisition [facility] - Main Lab [address] [facility] [place] [address] Pepe Arora MD Anemia, unspecified from Last 3 Months Social History Tobacco [...] patient's age to complete this topic Insurance [facility] MEDICAID [place] [id number] Care Teams Bead Trimmer Relationship Specialty Start Date End Date Jules Escalona [address] [place], [place] PCP - General 01/02/24
--- OUTSIDE RECORDS SUMMARY | 2025-04-29 06:29 | XMS_ITS | Encounter Summary ---
Author Organization [employer] Address [address] [place] [address] Care Team Providers Care Radiocommunications Technician Name Role Phone Jules Escalona Primary Care Provide r Encounter Details Date Type Department Care Team (Late st Contact Info) Description 04/19/2025 Lab Requisition [facility] - Main Lab [address] [facility] [place] [phone] Pepe Arora MD [address] [place] [address] Anemia, unspecified Social History Tobacco Use Types Packs/Day Years Used Date Smoking Tobacco: Never Assessed Sex and Gender Information Value Date Recorded Sex Assigned at Not on file Legal Sex Male 4:54 AM EST Gender Identity Not on file Sexual Orientation Not on file documented as of this encounter Plan of Treatment Not on file documented as of this encounter Visit Diagnoses Diagnosis Anemia, unspecified documented in this encounter Care Teams Radiocommunications Technician Relationship Specialty Start Date End Date Jules Escalona [address] [place], [place] PCP - General 01/02/24 documented as of this encounter
--- OUTSIDE RECORDS SUMMARY | 2025-04-29 06:29 | XMS_ITS | Encounter Summary ---
Author Organization [employer] Address [address] [place] [address] 7 [place] [address] Care Team Providers Care Operations General Agent Name Role Phone Jules Escalona MD Primary Care Prov ider Encounter Details Date Type Department Care Team (Latest Contact Info) Description 02/23/2021 Abstract [facility] CONVERSIONS Dental, Provider, DDS Social History Tobacco [...] on filedocumented in this encounter Care Teams Operations General Agent Relationship Specialty Start Date End Date Jules Escalona MD [address] [place] [address] PCP - General Internal Medicine 09/07/19 documented as of this encounter
--- OUTSIDE RECORDS SUMMARY | 2025-04-29 06:29 | XMS_ITS | Encounter Summary ---
Author Organization [employer] Address [address] [facility] 7t [place] [address] Care Team Providers Care Aerodynamic Consultant Name Role Phone Jules Escalona MD Primary Care Prov ider Reason for Visit * Reason Onset Date Comments left small partial in office 01/31/2023 Encounter Details Date Type Department Care Team (Late st Contact Info) Description 01/31/2023 Telephone [facility] ADULT DENTAL [address] [place] [address] Aston Espinoza DDS [address] [place] [address] left small partial in office Social History [...] documented as of this encounter Care Teams Aerodynamic Consultant Relationship Specialty Start Date End Date Jules Escalona MD [address] [place] [address] PCP - General Internal Medicine 09/07/19 documented as of this encounter
--- OUTSIDE RECORDS SUMMARY | 2025-04-29 06:29 | XMS_ITS | Encounter Summary ---
Author Organization [employer] Address [address] [facility] [address] 7t [place] [address] Care Team Providers Care Application Services Manager Name Role Phone Jules Escalona MD Primary Care Prov ider Encounter Details Date Type Department Care Team (Late st Contact Info) Description 10/14/2023 Telephone [facility] ADULT DENTAL [address] [place] [address] Sherine Ramirez DMD Social History Tobacco Use [...] documented as of this encounter Care Teams Application Services Manager Relationship Specialty Start Date End Date Jules Escalona MD [address] [place] [address] PCP - General Internal Medicine 09/07/19 documented as of this encounter
--- OUTSIDE RECORDS SUMMARY | 2025-04-29 06:29 | XMS_ITS | Encounter Summary ---
Author Organization [employer] Address 75 [facility] 7t [place] [address] Care Team Providers Care Dependency Case Manager Name Role Phone Jules Escalona MD Primary Care Prov ider Encounter Details Date Type Department Care Team ([facility] st Contact Info) Description 08/10/2022 Orders Only [facility] CHC MED & PEDS [address] [place] [address] Jules Escalona MD [address] [place] [address] Social History Tobacco Use Types Packs/Day Years [...] documented as of this encounter Care Teams Dependency Case Manager Relationship Specialty Start Date End Date Jules Escalona MD [address] [place] [address] PCP - General Internal Medicine 09/07/19 documented as of this encounter
--- OUTSIDE RECORDS SUMMARY | 2025-04-29 06:29 | XMS_ITS | Clinical Summary ---
Author Organization [employer] Address [address] [facility] 7t [place] [address] Care Team Providers Care Residential Substance Abuse Counselor Name Role Phone Jules Escalona MD [...] naloxone (Narcan) 4 mg/0.1 mL nasal spray [place] 0.1 mL into one nostril. Repeat with [...] to 20 doses. 20 tablet 4 Active polyethylene glycol, PEG, 3350 [...] THE MORNING 90 tablet 3 5 Active traZODone (Desyrel) 150 MG tabletIndications: Primary insomnia TAKE 1 TABLET(150 MG) BY MOUTH AT BEDTIME 30 tablet 3 5 Active FLUoxetine (PROzac) 40 MG capsuleIndications :Recurrent major depressive disorder, in partial remission (CMS/HCC) TAKE 1 CAPSULE(40 MG) BY MOUTH DAILY 30 capsule 3 5 Active cetirizine (ZyrTEC) 10 MG tabletIndications: Seasonal allergies TAKE 1 TABLET BY MOUTH IN THE MORNING 90 tablet 3 5 Active dicyclomine (Bentyl) 20 MG tabletIndications: Irritable bowel syndrome with both constipation and diarrhea TAKE 1 TABLET BY MOUTH THREE TIMES DAILY WITH BREAKFAST, LUNCH AND EVENING MEAL 90 tablet 2 5 Active gabapentin (Neurontin) 800 MG tablet [...] Dyspepsia 12/11/2023 Chronic back pain 06/18/2023 06/18/2023 Assessment & Plan (04/26/2025 11:53 PM EST): Patient followed by pain management, he is on gabapentin for neuropatic pain, previously tried pregabalin which he failed, has tolerated better gabapentin, no opiods will be provided, continue pain medicine follow up, avoid heavy lifting, rest, follow up as needed Assessment & Plan (04/02/2025 9:02 AM EST): Chronic low back pain, bilateral knee/lower extremity weakness, will refer to pt, continue pain management follow up Dysuria 02/01/2023 Assessment & Plan (02/01/2023 10:48 [...] bp, target <140/90 >90/60, follow up with experimental technician as scheduled Assessment & Plan (11/07/2022 9:44 [...] (06/18/2023): Added automatically from request for surgery [id number] Last Assessment & Plan: Continued sporadic epigastric [...] (06/18/2023): Added automatically from request for surgery [id number] Delayed gastric emptying 08/09/2020 Overview (01/18/2023): Added automatically from request for surgery [id number] Esophageal dysphagia 06/06/2020 06/18/2023 Overview (06/18/2023): Last [...] organization. Date Type Department Care Team Description 04/13/2025 Patient Outreach [facility] MED[facility]INE [address] [place] [address] Jules Escalona MD Transition Of Care (Tcm) (HDF unscheduled) 04/13/2025 Telephone [facility] [address] [place] [address] Jules Escalona MD Hospital Follow-up 04/02/2025 8:30 AM EST Office Visit [facility] MED & PEDS [address] [place] [address] Jules Escalona MD Chronic bilateral low back pain with bilateral sciatica (Primary Dx); Diabetic mononeuropathy simplex (HCC) 04/02/2025 Travel 04/01/2025 Telephone [facility] MED & PEDS [address] [place] [address] Jules Escalona MD chart prep 03/29/2025 Telephone [facility] MED & PEDS [address] [place] [address] Jules Escalona MD Referral 03/29/2025 Telephone [facility] MEDICINE [address] [place] [address] Jules Escalona MD Nurse Triage 03/22/2025 Refill [facility] CHC MED & PEDS [address] [place] [address] Jules Escalona MD 03/18/2025 Refill [facility] MED[facility]INE [address] [place] [address] Jules Escalona MD 03/02/2025 2:30 PM EDT Immunization [facility] MED & PEDS [address] [place] [address] Encounter for immunization 03/02/2025 Travel 02/17/2025 Refill [facility] MED & PEDS [address] [place] [address] Jules Escalona MD Irritable bowel syndrome with both constipation and diarrhea 02/16/2025 Refill [facility] MED & PEDS [address] [place] [address] Margie Martínez MD Irritable bowel syndrome with both constipation and diarrhea 02/10/2025 Refill [facility] MED[facility]INE [address] [place] [address] Jules Escalona MD Seasonal allergies 02/01/2025 Refill [facility] MED & PEDS [address] [place] [address] Jules Escalona MD Primary insomnia; Recurrent major depressive disorder, in partial remission ([facility]) from Last 3 Months Immunizations Immunization Administration Dates Next Due Influenza Injectable Quadriv alant Preservative Free IIV4 MDCK 06/21/2023,03/21/2020 Influenza injectable quadriv alent IIV4 with preservative 02/16/2019,02/21/2018,01/14/2018 Influenza injectable quadriv alent preservative free 08/03/2022,01/19/2022,01/17/2016 Influenza, IIV3, injectable 01/11/2017, 6,03/12/2014 Influenza, Split (incl. [place] fied surface antigen) 05/20/2012 Influenza, seasonal, injecta ble, preservative free 03/02/2025,02/21/2024,01/11/2017 Pneumococcal Polysaccharide PPSV23 03/08/2016 Tdap 04/02/2017,11/19/2016 Zoster, [...] Sign Reading Time Taken Comments Blood Pressure 128/80 04/02/2025 8:43 AM EST Pulse 78 04/02/2025 8:43 AM EST Temperature 36.3 C (97.3 F) 04/02/2025 8:43 AM EST Respiratory Rate 18 04/02/2025 8:43 AM EST Oxygen Saturation 98% 04/02/2024 11:00 AM EST Inhaled Oxygen Concentration - - Weight 80.7 kg (178 lb) 04/02/2025 8:43 AM EST Height 162.6 cm (5' 4 ) 04/02/2025 8:43 AM EST Body Mass Index 30.55 04/02/2025 8:43 AM EST Plan of Treatment Health Maintenance Due Date Last Done Comments CT Colonography 1960 Dental Oral Exam 1960 FIT DNA/Cologuard 1960 FIT 1960 FOBT 1960 Sigmoidoscopy 1960 Disability Screening 1960 Diabetes: Foot Exam 1970 Eye Exam 1970 Diabetes: Urine Protein Screening 08/19/1979 Hepatitis A Vaccines (1 of 2 - Risk 2-dose series) 08/19/1979 RSV Patients and Patients Aged 60 years or older (1 - Risk 50-74 years 1-dose series) 2010 Pneumococcal Vaccine: 50+ Years (2 of 2 - PCV) 03/08/2017 03/08/2016 Hepatitis B Vaccines (1 of 3 - Risk 3-dose series) 2020 Dental Prophylaxis 04/29/2024 10/28/2023, 1 05/18/2022, 08/30/2022 Dental X-Ray: Bitewings 11/12/2024 11/12/2023, 10/27 COVID-19 Vaccine ( season) 2025 05/03/2021, 10/04/2020 Lipid Panel 03/25/2025 03/25/2024, 02/0 01/2024, 07/30/2022, Additional history exists Alcohol/Substance Use Screening 09/15/2025 09/15/2024 Depression Screening 09/15/2025 09/15/2024, 09/16/19 SDOH Screening 09/15/2025 09/15/2024 Diabetes: Hemoglobin A1C 09/30/2025 025, 06/15/2024, 06/21/2023, Additional history exists Dental X-Ray: Full Mouth 10/23/2025 10/22/2022 Tobacco Screening 04/02/2026 04/02/2025 DTaP/Tdap/Td Vaccines (3 - Td or Tdap) 04/02/2027 04/02/2017, 11/19/2016 Colonoscopy 07/05/2028 07/05/2023, 08/04/2013 Colorectal Cancer Screening 07/05/2028 HIV Screening Completed 07/30/2022 Hepatitis C Screening Completed 07/30/2022 Zoster Vaccines Completed 08/16/2023, 06/21/2023 Influenza Vaccine Completed 03/02/2025, , 06/21/2023, Additional history exists HIB Vaccines Aged Out [...] Procedure Name Priority Date/Time Associated Diagnosis Comments POCT GLYCATED HEMOGLOBIN, TOTAL Routine 04/02/2025 8:47 AM EST Diabetic mononeuropathy simplex (HCC) POCT GLUCOSE Routine 04/02/2025 8:45 AM EST Diabetic mononeuropathy simplex (HCC) LIPID PANEL, STANDARD Routine 03/25/2024 8:33 AM [...] Recently Relevant to Health Maintenance Results * POCT Hgb A1c (04/02/2025 8:47 AM EST) Hemoglobin A1C 5.6 4.0 - 5.7 % QC Media Lot # [id number] Lot# Expiration Date [id number] Blood 04/02/2025 8:47 AM EST Jules Lopez MD POINT OF CARE TEST ENTER/EDIT ORDERABLES Final Result * POCT Glucose (04/02/2025 8:45 AM EST) Glucose Blood, POC 121 60 - 200 mg/dL QC Media Lot # [id number] Lot# Expiration Date [id number] Blood Capillary blood specimen / Unknown 04/02/2025 8:45 AM EST Jules Lopez MD POINT OF CARE TEST ENTER/EDIT ORDERABLES Final Result * (ABNORMAL) Lipid Panel, Standard (03/25/2024 8:33 AM EST) Triglycerides 233(H) <150 mg/dL [facility] Comment:Slight Lipemia.Claudette able Triglyceride: less than 150 mg/dLBorderline High Triglyceride 150-199 mg/dLHigh Triglyceride: 200-499 mg/dLVery High Triglyceride: greater than or equal to 5OO mg/dL Cholesterol 180 <200 mg/dL [facility] Comment:Desirable Cholestero l: less than 200 mg/dLBorderline High Cholesterol: 200-239 mg/dLHigh Cholesterol: greater than 239 mg/dL LDL Cholesterol Calculated 82 <100 mg/dL [facility] Comment:Desirable LDL: less than 100 mg/dLNear Optimal/Above Optimal LDL: 110- 129 mg/dLBorderline High LDL: 130-159 mg/dLHigh LDL: 160-189 mg/dLVery High LDL: greater than or equal to 190 mg/dL HDL Cholesterol 52 >40 mg/dL [facility] Comment:Desirable HDL: great er than 40 mg/dL Note: This HDL assay may give artificially low results in patients with liver disease. Blood Venous blood specimen / Unknown 03/25/2024 8:33 AM EST 03/25/2024 2:19 PM EST Jules Lopez MD LAB BLOOD ORDERABL ES Final Result [facility] [address] [place] [phone] * Hm Colonoscopy (07/05/2023 8:17 AM EST) Fredy Provider HEALTH MAINTENANCE Final Result * HIV-1 RNA, Quantitative, Real-Time PCR with Reflex to Genotype (RTI, PI, Integrase) (07/30/2022 9:03 AM EDT) HIV 1 RNA, QN PCR NOT DETECTED copies/mL [facility], HIV 1 RNA, QN PCR NOT DETECTED Log copies/mL [facility], Comment: REFERENCE RANGE: NOT DETECTED copies/mL NOT DETECTED Log copies/mL This test was performed using Real-Time Polymerase Chain Reaction. Reportable range is 20 to 10,000,000 copies/mL (1.30-7.00 Log copies/mL). 07/30/2022 9:03 AM EDT 07/30/2022 9:03 AM EDT Narrative [facility] - 08/02/2022 7:14 PM EDT FASTING:YES FASTING: YES Jules Lopez MD LAB BLOOD ORDERABL ES Final Result Performing Organization Address [facility] Co de Phone Number [facility] [address], [place] [address] [employer] [facility], [address] [place] [address] * Hepatitis C Antibody with Reflex to HCV, RNA, Quantitative, Real-Time PCR (07/30/2022 9:03 AM EDT) Hepatitis C Antibody NON-REACT KELLY NON-REACT KELLY [facility] [place] [employer] Index 0.05 <1.00 [facility] [employer] Comment: HCV antibody was non-reactive. There is no laboratory evidence of HCV infection. In most cases, no further action is required. However, if recent HCV exposure is suspected, a test for HCV RNA (test code 71372) is suggested. For additional information please refer to http://education.Stipple/faq/MQC32s5 (This link is being provided for informational/ educational purposes only.) Blood Venous blood specimen / Unknown 07/30/2022 9:03 AM EDT 07/30/2022 9:03 AM EDT Narrative [facility] - 08/02/2022 7:14 PM EDT FASTING:YES FASTING: YES Jules Lopez MD LAB BLOOD ORDERABL ES Final Result Performing Organization Address [facility]/ZIP Co de Phone Number RAOL[facility] [address], [place] [address] [employer] [place] [employer] [address] [place] [address] from Last 3 Months or Most Recently Relevant to Health Maintenance Insurance [employer] < [phone] Care Teams Residential Substance Abuse Counselor Relationship Specialty Start Date End Date Jules Escalona MD [address] [place] [address] PCP - General Internal Medicine 09/07/19
--- OUTSIDE RECORDS SUMMARY | 2025-04-29 06:29 | XMS_ITS | Encounter Summary ---
Author Organization [employer] Address [address] [facility] 7t [place] [address] Care Team Providers Care Site Monitor Name Role Phone Jules Escalona MD Primary Care Prov ider Reason for Visit * Reason Onset Date Comments Nurse Triage 03/29/2025 Encounter Details Date Type Department Care Team ([facility] st Contact Info) Description 03/29/2025 Telephone [facility] MEDICINE [address] [place] [address] Jules Escalona MD [address] [place] [address] Nurse Triage Social History Tobacco Use Types [...] encounter Miscellaneous Notes * Telephone Encounter - Ellen Cecilio - 03/29/2025 12:50 PM EST Symptom: Leg Pain - Not From Injury Outcome: Talk to a nurse or provider within 15 minutes Reason: Can't walk (unless normally can't walk) The caller accepted this outcome. PCP Dr. Carcamo documented in this encounter Plan of Treatment Not on file documented as of this encounter Visit Diagnoses Not on filedocumented in this encounter Additional Health Concerns Assessment Noted Time PHQ-9 Depression Total Score: 0 09/16/19 25 8:47 AM EDT documented as of this encounter Care Teams Site Monitor Relationship Specialty Start Date End Date Jules Escalona MD [address] [place] [phone] PCP - General Internal Medicine 09/07/19 documented as of this encounter
--- OUTSIDE RECORDS SUMMARY | 2025-04-29 06:29 | XMS_ITS | Encounter Summary ---
Author Organization [employer] Address [address] [facility] 7 [place] [address] Care Team Providers Care Court Assistant Name Role Phone Jules Escalona MD Primary Care Prov ider Reason for Visit * Reason Onset Date Comments Med Refill 10/07/2024 Encounter Details Date Type Department Care Team ([facility] Contact Info) Description 10/07/2024 Telephone [facility] MEDICINE [address] [place] [address] Jules Escalona MD [address] [place] [address] Med Refill Social History Tobacco Use Types [...] ondansetron 8 mg To be sent to: [id number] - [place], [place] - [address] [place] [address] AT [facility] documented in this encounter Plan of Treatment Not on file documented as of this encounter Visit Diagnoses Not on filedocumented in this encounter Additional Health Concerns Assessment Noted Time PHQ-9 Depression Total Score: 0 09/16/19 25 8:47 AM EDT documented as of this encounter Care Teams Court Assistant Relationship Specialty Start Date End Date Jules Escalona MD [address] [place] [address] PCP - General Internal Medicine 09/07/19 documented as of this encounter
--- OUTSIDE RECORDS SUMMARY | 2025-04-29 06:29 | XMS_ITS | Encounter Summary ---
Author Organization [employer] Address [address] [facility] 7t [place] [address] Care Team Providers Care Allergy And Immunology Chief Name Role Phone Jules Escalona MD Primary Care Prov ider Reason for Visit * Reason Comments Med Refill Encounter Details Date Type Department Care Team ([facility] Contact Info) Description 03/18/2025 Refill [facility] MEDICINE [address] [place] [address] Jules Escalona MD [address] [place] [address] Social History Tobacco Use Types Packs/Day Years [...] documented as of this encounter Care Teams Allergy And Immunology Chief Relationship Specialty Start Date End Date Jules Escalona MD [address] [place] [address] PCP - General Internal Medicine 09/07/19 documented as of this encounter
--- OUTSIDE RECORDS SUMMARY | 2025-04-29 06:29 | XMS_ITS | Encounter Summary ---
Author Organization [employer] Address [address] [facility] 7t [place] [address] Care Team Providers Care Mechanical Inspector Name Role Phone Jules Escalona MD Primary Care Prov ider Reason for Visit * Reason Comments Med Refill Encounter Details Date Type Department Care Team ([facility] Contact Info) Description 11/12/2024 Refill [facility] MED[facility] [address] [place] [address] Jules Escalona MD [address] [place] [address] Social History Tobacco Use Types Packs/Day Years [...] documented as of this encounter Care Teams Mechanical Inspector Relationship Specialty Start Date End Date Jules Escalona MD [address] [place] [address] PCP - General Internal Medicine 09/07/19 documented as of this encounter
--- OUTSIDE RECORDS SUMMARY | 2025-04-29 06:29 | XMS_ITS | Encounter Summary ---
Author Organization [employer] Address [address] [facility] 7 [place] [address] Care Team Providers Care Trackmobile Operator Name Role Phone Jules Escalona MD Primary Care Prov ider Reason for Visit * Reason Comments Med Refill Encounter Details Date Type Department Care Team ([facility] Contact Info) Description 10/15/2023 Refill [facility] MED & PEDS [address] [place] [address] Jules Escalona MD [address] [place] [address] Delayed gastric emptying Social History Tobacco Use [...] documented as of this encounter Care Teams Trackmobile Operator Relationship Specialty Start Date End Date Jules Escalona MD [address] [place] [address] PCP - General Internal Medicine 09/07/19 documented as of this encounter
--- OUTSIDE RECORDS SUMMARY | 2025-04-29 06:29 | XMS_ITS | Encounter Summary ---
Author Organization [employer] Address [address] [place] [address] 7 [place] [address] Care Team Providers Care Yarn Packer Name Role Phone Jules Escalona MD Primary Care Prov ider Reason for Visit * Reason Onset Date Comments Nurse Triage 11/06/2022 Encounter Details Date Type Department Care Team ([facility] st Contact Info) Description 11/06/2022 Telephone [facility]S [address] [place] [address] Jules Escalona MD [address] [place] [address] Nurse Triage Social History Tobacco Use Types [...] 4:04 PM EDT Triage call with pacific Client Account Specialist ID [id number] Pt reports blood pressure is up and [...] Getting worse The caller accepted this outcome (Beninese speaker) documented in this encounter Plan of Treatment Not on file documented as of this encounter Visit Diagnoses Not on filedocumented in this encounter Additional Health Concerns Assessment Noted Time PHQ-9 Depression Total Score: 5 07/31/19 23 8:54 AM EDT documented as of this encounter Care Teams Yarn Packer Relationship Specialty Start Date End Date Jules Escalona MD [address] [place] [address] PCP - General Internal Medicine 09/07/19 documented as of this encounter
== END 2025-04-29 06:27 | disposition home or self-care (01) ==
LOC: CF 06:26
PROVIDERS: Visit Provider Internal Medicine
DX: M53.3 Sacrococcygeal disorders, not elsewhere classified (principal)
CPT/HCPCS: 27096; J2003; J2795; J3301

== ENCOUNTER 2025-04-29 11:29 | Outpatient (AMB) | payer OTHER, SELFPAY ==
--- NOTE | 2025-04-29 11:37 | A.OFFVIS_ITS ---
Vital Signs 04/29/25 11:38 04/29/25 12:24 BP 110/68 110/60 Blood Pressure Location Lt brachial Lt brachial Position Sitting Sitting Respiration 16 16 Pulse 84 90 Pulse Source Pulse Oximeter Pulse Oximeter Pulse Oximetry (%) 97 97 Oxygen Delivery Method Room Air Room Air Intake Visit Reasons: Bilateral Therapeutic SIJ Injections Automotive Engineering Teacher Required: No Allergies phenytoin (From DILANTIN) Allergy (Intermediate, Verified 04/29/25 11:38) NAUSEA buprenorphine (Belbuca) Allergy (Unknown, Verified 04/29/25 11:38) nausea tramadol (TRAMADOL) Allergy (Unknown, Verified 04/29/25 11:38) UNABLE TO SLEEP , AGITATION, restless leg syndrome diphenhydramine Allergy (Verified 04/29/25 11:38) RLS, shaky,agitation benafdryl Allergy (Uncoded 04/29/25 11:38) Unknown Medication List - Last Reconciled 04/29/25 by Lizet Yee LPN atorvastatin 40 mg PO DAILY celecoxib 200 mg PO BID cetirizine 10 mg PO QAM dicyclomine 1 tab PO TID fluoxetine 1 cap PO QAM fluticasone propionate 50 mcg/actuation 1 spray intranasal DAILY gabapentin 1 tab PO TID morphine 15 mg PO Q6H PRN ondansetron 8 mg PO TID trazodone 1 tab PO BEDTIME vonoprazan (Voquezna) 10 mg PO DAILY HPI HPI Bilateral Therapeutic SIJ Injections: Details: Patient presents for scheduled procedure. Denies any recent cough, cold, infection, fever or other significant changes in medical history since last office visit. [facility] Medical History History of adenomatous polyp of colon Tubular adenoma of colon Colon cancer screening Chronic abdominal pain Anxiety Hyperlipidemia Chronic back pain Chronic pain Surgical History History of colonoscopy with polypectomy (11/29/23) History of colonoscopy History of back surgery H/O colonoscopy Hx of abdominal surgery Social History Are you a primary career technology teacher to a significant other at home: No Do you presently have visiting nurse or other home services: Yes ([employer] 51 hours per month) Alcohol intake: never Comment: trying to sleep Patient Tobacco Use Status: Former Tobacco user Tobacco use type: Cigarette Second Hand Smoke Exposure: No Advance Directives Date on File: 04/12/25 service: No Current occupational status: unemployed and disabled Current occupation: Right handed Physical Exam Vital Signs: Last Vital Signs Pulse 90 04/29/25 12:24 Resp 16 04/29/25 12:24 BP 110/60 04/29/25 12:24 Pulse Ox 97 04/29/25 12:24 Oxygen Delivery Method Room Air 04/29/25 12:24 Office Procedures AMB Joint Injection/Aspiration Joint Injection/Aspiration Details: Sacroiliac Joint Injection, Bilateral The procedure, its benefits, and its risks were explained and written informed consent was obtained from the patient. Immediately prior to starting the procedure, a time-out safety check was conducted. The patient's identification, procedure name, procedure site, and procedure laterality were confirmed with the patient. ? Patient was placed prone on the fluoroscopy table and the lumbosacral area was prepped using ChloraPrep and draped with sterile draped in standard fashion. The C-arm was rotated in a contralateral oblique fashion until the medial border of the iliac crest no longer foreshadowed the posterior sacroiliac joint line. The skin and subcutaneous tissue was anesthetized using 1 mL of 0.75% plain lidocaine with 1.5-inch 25-gauge needle in the middle region of the joint line.? A 3.5-inch 22-gauge spinal needle with small bend on the tip was slowly advanced towards the joint line, coaxial to the x-ray beam. Once bony content was obtained, the needle was easily slid into the intra-articular space.? Intra- articular needle position was confirmed using lateral fluoroscopy.? A total volume of 2.5mL of solution containing 30 mg trimcinilone and rest 0.5% of ropivacaine was injected intra-articularly. The stylet was reinserted and needle was removed. The same procedure was repeated on the other side. The patient tolerated the procedure well. Patient denied any lower extremity weakness or numbness. Patient was observed for 30 min and was discharged after fulfilling the standard discharge criteria. Coding 37588 - Sacroiliac (bilateral) Procedure code (CPT) selection complete Assessment & Plan Assessment & Plan (1) Sacroiliac joint pain: Code(s): M53.3 - Sacrococcygeal disorders, not elsewhere classified Category: Medical Plan Patient is status post bilateral therapeutic SIJ injections. Patient tolerated procedure well and was discharged home in stable condition with discharge instructions. All questions were answered. We will follow-up via telephone or in clinic to assess response to therapy. A follow-up appointment was made during today's visit. Orders: Orders FL guidance in treatment room 04/29/25 M53.3 - Sacrococcygeal disorders, not elsewhere classified Coding Level of Care Code Procedure Only Diagnoses Sacroiliac joint pain M53.3 CPT Codes Coding - Joint 9: 02692 - Sacroiliac ([id number])
[2025-04-29 11:38] VITALS: BP 110/68; PULSE 84; RESP 16; O2SAT 97
[2025-04-29 12:24] VITALS: BP 110/60; PULSE 90; RESP 16; O2SAT 97
--- OUTSIDE RECORDS SUMMARY | 2025-04-29 15:06 | XMS_ITS | Clinical Summary ---
Author Organization [email or web address] Address [address] [facility] 7t [place] [address] Care Team Providers Care Plant And Equipment Worker Name Role Phone Jules Escalona MD [...] (Narcan) 4 mg/0.1 mL nasal spray [place] 0.1 mL into one nostril. Repeat with [...] bp, target <140/90 >90/60, follow up with advertising coordinator as scheduled Assessment & Plan (11/07/2022 9:44 [...] (06/18/2023): Added automatically from request for surgery [id number] Last Assessment & Plan: Continued sporadic epigastric [...] (06/18/2023): Added automatically from request for surgery [id number] Delayed gastric emptying 08/09/2020 Overview (01/18/2023): Added automatically from request for surgery [id number] Esophageal dysphagia 06/06/2020 06/18/2023 Overview (06/18/2023): Last [...] Department Care Team Description 04/13/2025 Patient Outreach [facility] [address] [place] [address] Jules Escalona MD Transition Of Care (Tcm) (HDF unscheduled) 04/13/2025 Telephone [facility] [address] [place] [address] Jules Escalona MD Hospital Follow-up 04/02/2025 8:30 AM EST Office Visit [facility] [address] [place] [address] Jules Escalona MD Chronic bilateral low back pain with bilateral sciatica (Primary Dx); Diabetic mononeuropathy simplex (HCC) 04/02/2025 Travel 04/01/2025 Telephone [facility] [address] [place] [address] Jules Escalona MD chart prep 03/29/2025 Telephone [facility] [address] [place] [address] Jules Escalona MD Referral 03/29/2025 Telephone [facility] [address] [place] [address] Jules Escalona MD Nurse Triage 03/22/2025 Refill [facility] [address] [place] [address] Jules Escalona MD 03/18/2025 Refill [facility] [address] [place] [address] Jules Escalona MD 03/02/2025 2:30 PM EDT Immunization [facility] [address] [place] [address] Encounter for immunization 03/02/2025 Travel 02/17/2025 Refill [facility] [address] [place] [address] Jules Escalona MD Irritable bowel syndrome with both constipation and diarrhea 02/16/2025 Refill [facility] [address] [place] [address] Margie Martínez MD Irritable bowel syndrome with both constipation and diarrhea 02/10/2025 Refill [facility] [address] [place] [address] Jules Escalona MD Seasonal allergies 02/01/2025 Refill [facility] [address] [place] [address] Jules Escalona MD Primary insomnia; Recurrent major depressive disorder, in partial remission ([facility]) from Last 3 Months Immunizations Immunization Administration [...] Media Lot # [id number] Lot# Expiration Date 01,317 Blood Capillary blood specimen / Unknown 04/02/2025 8:45 AM EST Jules Lopez MD POINT OF CARE TEST ENTER/EDIT ORDERABLES Final Result * (ABNORMAL) Lipid Panel, Standard (03/25/2024 8:33 AM EST) Triglycerides 233(H) <150 mg/dL [facility] Comment:Slight Lipemia.Claudette able Triglyceride: less than 150 mg/dLBorderline High Triglyceride 150-199 mg/dLHigh Triglyceride: 200-499 mg/dLVery High Triglyceride: greater than or equal to 5OO mg/dL Cholesterol 180 <200 mg/dL [facility] Comment:Desirable Cholestero l: less than 200 mg/dLBorderline High Cholesterol: 200-239 mg/dLHigh Cholesterol: greater than 239 mg/dL LDL Cholesterol Calculated 82 <100 mg/dL [facility] Comment:Desirable LDL: less than 100 mg/dLNear Optimal/Above Optimal LDL: 110- 129 mg/dLBorderline High LDL: 130-159 mg/dLHigh LDL: 160-189 mg/dLVery High LDL: greater than or equal to 190 mg/dL HDL Cholesterol 52 >40 mg/dL [facility] Comment:Desirable HDL: great er than 40 mg/dL Note: This HDL assay may give artificially low results in patients with liver disease. Blood Venous blood specimen / Unknown 03/25/2024 8:33 AM EST 03/25/2024 2:19 PM EST Jules Lopez MD LAB BLOOD ORDERABL ES Final Result [facility] [address] [place] [phone] * Hm Colonoscopy (07/05/2023 8:17 AM EST) Fredy Provider HEALTH MAINTENANCE Final Result * HIV-1 RNA, Quantitative, Real-Time PCR with Reflex to Genotype (RTI, PI, Integrase) (07/30/2022 9:03 AM EDT) HIV 1 RNA, QN PCR NOT DETECTED copies/mL [facility], HIV 1 RNA, QN PCR NOT DETECTED Log copies/mL [facility], Comment: REFERENCE RANGE: NOT DETECTED copies/mL NOT DETECTED Log copies/mL This test was performed using Real-Time Polymerase Chain Reaction. Reportable range is 20 to 10,000,000 copies/mL (1.30-7.00 Log copies/mL). 07/30/2022 9:03 AM EDT 07/30/2022 9:03 AM EDT Narrative [facility] - 08/02/2022 7:14 PM EDT FASTING:YES FASTING: YES Jules Lopez MD LAB BLOOD ORDERABL ES Final Result Performing Organization Address [facility] Co de Phone Number [facility] [address], [place] [address] [employer]/[facility], [address] [place] [address] * Hepatitis C Antibody with Reflex to HCV, RNA, Quantitative, Real-Time PCR (07/30/2022 9:03 AM EDT) Hepatitis C Antibody NON-REACT KELLY NON-REACT KELLY [employer] [place] [employer] Index 0.05 <1.00 [employer] [place] [employer] Comment: HCV antibody was non-reactive. There is no laboratory evidence of HCV infection. In most cases, no further action is required. However, if recent HCV exposure is suspected, a test for HCV RNA (test code 45068) is suggested. For additional information please refer to http://education.Spiration/faq/ODX74x2 (This link is being provided for informational/ educational purposes only.) Blood Venous blood specimen / Unknown 07/30/2022 9:03 AM EDT 07/30/2022 9:03 AM EDT Narrative [facility] - 08/02/2022 7:14 PM EDT FASTING:YES FASTING: YES Jules Lopez MD LAB BLOOD ORDERABL ES Final Result Performing Organization Address [facility]/ZIP Co de Phone Number AROLDO [address], [place] [address] [employer] [place] [employer] [address] [place] [address] from Last 3 Months or Most Recently Relevant to Health Maintenance Insurance [employer] < [phone] Care Teams Plant And Equipment Worker Relationship Specialty Start Date End Date Jules Escalona MD [address] [place] [address] PCP - General Internal Medicine 09/07/19
--- OUTSIDE RECORDS SUMMARY | 2025-04-29 15:06 | XMS_ITS | Encounter Summary ---
Author Organization [employer] Address [address] [facility] 7t [place] [address] Care Team Providers Care Director Of Training Name Role Phone Jules Escalona MD Primary Care Prov ider Reason for Visit * Reason Onset Date Comments Nurse Triage 03/29/2025 Encounter Details Date Type Department Care Team ([facility] st Contact Info) Description 03/29/[address] [facility] [address] [place] [address] Jules Escalona MD [address] [place] [address] Nurse Triage Social History Tobacco Use Types [...] of this encounter Care Teams Director Of Training Relationship Specialty Start Date End Date Jules Escalona MD [address] [place] [address] PCP - General Internal Medicine 09/07/19 documented as of this encounter
--- OUTSIDE RECORDS SUMMARY | 2025-04-29 15:06 | XMS_ITS | Encounter Summary ---
Author Organization [employer] Address [address] [facility] 7 [place] [address] Care Team Providers Care Apprentice Jockey Name Role Phone Jules Escalona MD Primary Care Prov ider Reason for Visit * Reason Comments Med Refill Encounter Details Date Type Department Care Team ([facility] Contact Info) Description 06/23/2023 Refill [facility] [address] [place] [address] Margie Martínez MD [address] [place] [address] Irritable bowel syndrome with both constipation and [...] documented as of this encounter Care Teams Apprentice Jockey Relationship Specialty Start Date End Date Jules Escalona MD [address] [place] [address] PCP - General Internal Medicine 09/07/19 documented as of this encounter
--- OUTSIDE RECORDS SUMMARY | 2025-04-29 15:06 | XMS_ITS | Encounter Summary ---
Author Organization [employer] Address [address] [place] [address] 7 [place] [address] Care Team Providers Care Agricultural Agent Name Role Phone Jules Escalona MD Primary Care Prov ider Encounter Details Date Type Department Care Team (Latest Contact Info) Description 04/15/2020 Abstract [facility] [...] on filedocumented in this encounter Care Teams Agricultural Agent Relationship Specialty Start Date End Date Jules Escalona MD [address] [place] [address] PCP - General Internal Medicine 09/07/19 documented as of this encounter
--- OUTSIDE RECORDS SUMMARY | 2025-04-29 15:06 | XMS_ITS | Encounter Summary ---
Author Organization [employer] Address [address] [facility] 7t [place] [address] Care Team Providers Care Electric Meter Technician Name Role Phone Jules Escalona MD Primary Care Prov ider Reason for Visit * Reason Comments Med Refill Encounter Details Date Type Department Care Team ([facility] Contact Info) Description 03/18/2025 Refill [facility] [address] [place] [address] Jules Escalona MD [address] [place] [address] Social History Tobacco Use Types Packs/Day Years [...] documented as of this encounter Care Teams Electric Meter Technician Relationship Specialty Start Date End Date Jules Escalona MD [address] [place] [address] PCP - General Internal Medicine 09/07/19 documented as of this encounter
--- OUTSIDE RECORDS SUMMARY | 2025-04-29 15:06 | XMS_ITS | Encounter Summary ---
Author Organization [employer] Address [address] [place] [address] 7 [place] [address] Care Team Providers Care Parole Supervisor Name Role Phone Jules Escalona MD Primary Care Prov ider Encounter Details Date Type Department Care Team (Latest Contact Info) Description 01/23/2022 Abstract [facility] CONVERSIONS Dental, Provider, DDS Social [...] on filedocumented in this encounter Care Teams Parole Supervisor Relationship Specialty Start Date End Date Jules Escalona MD [address] [place] [address] PCP - General Internal Medicine 09/07/19 documented as of this encounter
--- OUTSIDE RECORDS SUMMARY | 2025-04-29 15:06 | XMS_ITS | Encounter Summary ---
Author Organization [employer] Address [address] [facility] 7t [place] [address] Care Team Providers Care Edge Bander Operator Name Role Phone Jules Escalona MD Primary Care Prov ider Encounter Details Date Type Department Care Team ([facility] st Contact Info) Description 08/10/2022 Orders Only [facility] [address] [place] [address] Jules Escalona MD [address] [place] [address] Social History Tobacco Use Types Packs/Day Years [...] documented as of this encounter Care Teams Edge Bander Operator Relationship Specialty Start Date End Date Jules Escalona MD [address] [place] [address] PCP - General Internal Medicine 09/07/19 documented as of this encounter
--- OUTSIDE RECORDS SUMMARY | 2025-04-29 15:06 | XMS_ITS | Encounter Summary ---
Author Organization [employer] Address [address] [place] [address] 7 [place] [address] Care Team Providers Care Manufacturing Engineering Technician Name Role Phone Jules Escalona MD Primary Care Prov ider Reason for Visit * Reason Onset Date Comments Nurse Triage 11/06/2022 Encounter Details Date Type Department Care Team ([facility] st Contact Info) Description 11/06/2022 Telephone [facility] [address] [place] [address] Jules Escalona MD [address] [place] [address] Nurse Triage Social History Tobacco Use Types [...] 4:04 PM EDT Triage call with pacific High Rigger ID [id number] Pt reports blood pressure is up and [...] Getting worse The caller accepted this outcome (Malawian speaker) documented in this encounter Plan of Treatment Not on file documented as of this encounter Visit Diagnoses Not on filedocumented in this encounter Additional Health Concerns Assessment Noted Time PHQ-9 Depression Total Score: 5 07/31/19 23 8:54 AM EDT documented as of this encounter Care Teams Manufacturing Engineering Technician Relationship Specialty Start Date End Date Jules Escalona MD [address] [place] [address] PCP - General Internal Medicine 09/07/19 documented as of this encounter
--- OUTSIDE RECORDS SUMMARY | 2025-04-29 15:06 | XMS_ITS | Encounter Summary ---
Author Organization [employer] Address [address] [facility] [address] 7t [place] [address] Care Team Providers Care Assistant Commissioner Name Role Phone Jules Escalona MD Primary Care Prov ider Encounter Details Date Type Department Care Team (Late st Contact Info) Description 10/14/2023 Telephone [facility] [address] [place] [address] Sherine Ramirez DMD Social History Tobacco Use [...] encounter Miscellaneous Notes * Telephone Encounter - Ngihat Lowry - 10/14/2023 1:31 PM EDT Patient [...] documented as of this encounter Care Teams Assistant Commissioner Relationship Specialty Start Date End Date Jules Escalona MD [address] [place] [address] PCP - General Internal Medicine 09/07/19 documented as of this encounter
--- OUTSIDE RECORDS SUMMARY | 2025-04-29 15:06 | XMS_ITS | Encounter Summary ---
Author Organization [employer] Address [address] [facility] [address] 7t [place] [address] Care Team Providers Care Business Systems Consultant Name Role Phone Jules Escalona MD Primary Care Prov ider Encounter Details Date Type Department Care Team (Late st Contact Info) Description 08/29/2023 Orders Only [facility] [address] [place] [address] ProviderFredy MD Social History Tobacco Use Types [...] documented as of this encounter Care Teams Business Systems Consultant Relationship Specialty Start Date End Date Jules Escalona MD [address] [place] [address] PCP - General Internal Medicine 09/07/19 documented as of this encounter
--- OUTSIDE RECORDS SUMMARY | 2025-04-29 15:06 | XMS_ITS | Encounter Summary ---
Author Organization [employer] Address [address] [place] [address] Care Team Providers Care Mechanical Maintenance Worker Name Role Phone Jules Escalona Primary Care Provide r Encounter Details Date Type Department Care Team (Late st Contact Info) Description 04/19/2025 Lab Requisition [facility] Main Lab [address] [facility] [place] [phone] Pepe Arora MD [address] [place] [address] Anemia, unspecified Social History Tobacco Use Types [...] unspecified documented in this encounter Care Teams Mechanical Maintenance Worker Relationship Specialty Start Date End Date Jules Escalona [address] [place], [place] PCP - General 01/02/24 documented as of this encounter
--- OUTSIDE RECORDS SUMMARY | 2025-04-29 15:06 | XMS_ITS | Clinical Summary ---
Author Organization [address] [facility] Address [address] [place] [address] Phone Care Team Providers Care Peoplesoft Hrms Developer Name Role Phone Jules Escalona Primary Care [...] Department Care Team Description 04/19/[address] [facility] - Main Lab [address] [facility] [place] [address] Pepe Arora MD Anemia, unspecified [...] patient's age to complete this topic Insurance [facility] MEDICAID [id number] Care Teams Peoplesoft Hrms Developer Relationship Specialty Start Date End Date Jules Escalona [address] [place], [place] PCP - General 01/02/24
--- OUTSIDE RECORDS SUMMARY | 2025-04-29 15:06 | XMS_ITS | Encounter Summary ---
Author Organization [employer] Address [address] [place] [address] 7 [place] [address] Care Team Providers Care Odd Bundle Worker Name Role Phone Jules Escalona MD Primary Care Prov ider Encounter Details Date Type Department Care Team (Latest Contact Info) Description 04/29/2019 Abstract [facility] CONVERSIONS Dental, Provider, DDS Social History [...] on filedocumented in this encounter Care Teams Odd Bundle Worker Relationship Specialty Start Date End Date Jules Escalona MD [address] [place] [address] PCP - General Internal Medicine 09/07/19 documented as of this encounter
--- OUTSIDE RECORDS SUMMARY | 2025-04-29 15:06 | XMS_ITS | Encounter Summary ---
Author Organization [employer] Address [address] [place] [address] 7 [place] [address] Care Team Providers Care Machining And Assembly Supervisor Name Role Phone Jules Escalona MD Primary Care Prov ider Encounter Details Date Type Department Care Team (Latest Contact Info) Description 02/23/2021 Abstract [facility] CONVERSIONS Dental, Provider, DDS Social [...] on filedocumented in this encounter Care Teams Machining And Assembly Supervisor Relationship Specialty Start Date End Date Jules Escalona MD [address] [place] [address] PCP - General Internal Medicine 09/07/19 documented as of this encounter
--- OUTSIDE RECORDS SUMMARY | 2025-04-29 15:06 | XMS_ITS | Encounter Summary ---
Author Organization [employer] Address [address] [facility] 7t [place] [address] Care Team Providers Care Box Lining Machine Operator Name Role Phone Jules Escalona MD Primary Care Prov ider Reason for Visit * Reason Onset Date Comments left small partial in office 01/31/2023 Encounter Details Date Type Department Care Team (Late st Contact Info) Description 01/31/2023 Telephone [facility] ADULT [facility] [address] [place] [address] Aston Espinoza DDS [address] [place] [address] left small partial in office Social History [...] documented as of this encounter Care Teams Box Lining Machine Operator Relationship Specialty Start Date End Date Jules Escalona MD [address] [place] [address] PCP - General Internal Medicine 09/07/19 documented as of this encounter
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
--- OUTSIDE RECORDS SUMMARY | 2025-04-29 15:06 | XMS_ITS | Encounter Summary ---
Author Organization [employer] Address [address] [facility] 7 [place] [address] Care Team Providers Care Take Away Worker Name Role Phone Jules Escalona MD Primary Care Prov ider Reason for Visit * Reason Comments Med Refill Encounter Details Date Type Department Care Team ([facility] Contact Info) Description 10/15/2023 Refill [facility] MED & PEDS [address] [place] [address] Jules Escalona MD [address] [place] [address] Delayed gastric emptying Social History Tobacco Use [...] documented as of this encounter Care Teams Take Away Worker Relationship Specialty Start Date End Date Jules Escalona MD [address] [place] [id number] PCP - General Internal Medicine 09/07/19 documented as of this encounter
--- OUTSIDE RECORDS SUMMARY | 2025-04-29 15:07 | XMS_ITS | Encounter Summary ---
Author Organization [employer] Address [address] [facility] 7t [place] [address] Care Team Providers Care Gas Refrigerator Servicer Name Role Phone Jules Escalona MD Primary Care Prov ider Reason for Visit * Reason Comments Med Refill Encounter Details Date Type Department Care Team ([facility] Contact Info) Description 01/11/2025 Refill [facility] [address] [place] [address] Jules Escalona MD [address] [place], [place] [id number] Recurrent major depressive disorder, in partial remission [...] documented as of this encounter Care Teams Gas Refrigerator Servicer Relationship Specialty Start Date End Date Jules Escalona MD [address] [place] [id number] PCP - General Internal Medicine 09/07/19 documented as of this encounter
--- OUTSIDE RECORDS SUMMARY | 2025-04-29 15:07 | XMS_ITS | Encounter Summary ---
Author Organization [employer] Address [address] [facility] 7 [place] [address] Care Team Providers Care Laboratory Associate Name Role Phone Jules Escalona MD Primary Care Prov ider Reason for Visit * Reason Comments Med Refill Encounter Details Date Type Department Care Team ([facility] Contact Info) Description 06/05/2024 Refill [facility] MED & PEDS [address] [place] [address] Jules Escalona MD [address] [place] [address] Seasonal allergies Social History Tobacco Use Types [...] documented as of this encounter Care Teams Laboratory Associate Relationship Specialty Start Date End Date Jules Escalona MD [address] [place] [id number] PCP - General Internal Medicine 09/07/19 documented as of this encounter
--- OUTSIDE RECORDS SUMMARY | 2025-04-29 15:07 | XMS_ITS | Encounter Summary ---
Author Organization [employer] Address [address] [facility] 7 [place] [address] Care Team Providers Care Take Out Waiter Name Role Phone Jules Escalona MD Primary Care Prov ider Reason for Visit * Reason Comments Med Refill Encounter Details Date Type Department Care Team ([facility] Contact Info) Description 09/25/2024 Refill [facility] MED & PEDS [address] [place] [address] Jules Escalona MD [address] [place] [address] Recurrent major depressive disorder, in partial remission [...] as of this encounter Care Teams Take Out Waiter Relationship Specialty Start Date End Date Jules Escalona MD [address] [place] [phone] PCP - General Internal Medicine 09/07/19 documented as of this encounter
--- OUTSIDE RECORDS SUMMARY | 2025-04-29 15:07 | XMS_ITS | Encounter Summary ---
Author Organization [employer] Address [address] [facility] 7 [place] [address] Care Team Providers Care Mangle Tender Name Role Phone Jules Escalona MD Primary Care Prov ider Reason for Visit * Reason Onset Date Comments Med Refill 10/07/2024 Encounter Details Date Type Department Care Team ([facility] Contact Info) Description 10/07/2024 Telephone [facility] MEDICINE [address] [place] [address] Jules Escalona MD [address] [place] [address] Med Refill Social History Tobacco Use Types [...] ondansetron 8 mg To be sent to: [id number] - [place], [place] - [address] [place] [address] AT [facility] documented in this encounter Plan of Treatment Not on file documented as of this encounter Visit Diagnoses Not on filedocumented in this encounter Additional Health Concerns Assessment Noted Time PHQ-9 Depression Total Score: 0 09/16/19 25 8:47 AM EDT documented as of this encounter Care Teams Mangle Tender Relationship Specialty Start Date End Date Jules Escalona MD [address] [place] [address] PCP - General Internal Medicine 09/07/19 documented as of this encounter
--- OUTSIDE RECORDS SUMMARY | 2025-04-29 15:07 | XMS_ITS | Encounter Summary ---
Author Organization [employer] Address [address] [facility] 7t [place] [address] Care Team Providers Care Oil Well Gun Perforator Operator Name Role Phone Jules Escalona MD Primary Care Prov ider Reason for Visit * Reason Comments Med Refill Encounter Details Date Type Department Care Team ([facility] Contact Info) Description 11/12/2024 Refill [facility] MEDICINE [address] [place] [address] Jules Escalona MD [address] [place] [address] Social History Tobacco Use Types Packs/Day Years [...] documented as of this encounter Care Teams Oil Well Gun Perforator Operator Relationship Specialty Start Date End Date Jules Escalona MD [address] [place] [address] PCP - General Internal Medicine 09/07/19 documented as of this encounter
== END 2025-04-29 12:26 | disposition home or self-care (01) ==
LOC: HO.PMCPRC 11:29
PROVIDERS: PCP Urology; Visit Provider Internal Medicine
DX: M53.3 Sacrococcygeal disorders, not elsewhere classified (principal)
CPT/HCPCS: 27096